=== PATIENT | male | born 1970 | race Hispanic/Latino ===

== ENCOUNTER 2018-06-22 11:39 | Emergency (ER) | payer SELFPAY ==
--- NOTE | 2018-06-22 12:45 | RAD REPORT ---
EXAM DESCRIPTION: CT - Head Brain Wo Cont - 06/22/2018 12:39 pm CLINICAL HISTORY: VISUAL DISTURBANCES Headache COMPARISON: No comparisons TECHNIQUE: All CT scans are performed using dose optimization technique as appropriate and may inclu de automated exposure control or mA/KV adjustment according to patient size. FINDINGS: No intracranial hemorrhage, hydrocephalus or extra-axial fluid collection.No areas of brai n edema or evidence of midline shift. The paranasal sinuses and mastoids are clear. The calvarium is intact. IMPRESSION: No acute intracranial abnormality.
[2018-06-22] MEDS ORDERED: NA CHLORIDE 0.9% 1,000 ML ONE (14:48)
[2018-06-22 14:52] LABS: Absolute Lymphocytes (CBC) 2.6 K/uL (0.7-4.9); Absolute Monocytes 0.5 K/uL (0.1-1.3); Absolute Neutrophil 4.1 K/uL (1.8-8.0); Basophils % 0.4 % (0-1.3); Hematocrit 42.9 % (39.6-49.0); Lymphocytes % 35.7 % (15.3-44.8); MCH 28.4 pg (27.0-35.0); MCV 83.2 fL (80-100); Monocytes % 6.8 % (3.3-12.3); RBC Red Blood Cell Count 5.16 M/uL (4.33-5.43)
[2018-06-22 15:01] LABS: Protime INR 1.03
[2018-06-22 15:18] LABS: ALT/SGPT 39 U/L (12-78); AST/SGOT 14 U/L (15-37); Albumin 3.8 g/dL (3.4-5.0); Alkaline Phosphatase 128 U/L (45-117); BUN Blood Urea Nitrogen 16 mg/dL (7-18); Bicarbonate 26 mmol/L (21-32); Bilirubin Direct 0.1 mg/dL (0-0.2); Bilirubin Total 0.5 mg/dL (0.2-1.0); CKMB Creatine Kinase MB < 1.0 ng/mL (0.3-3.6); Creatine Phosphokinase 69 U/L (39-308); Glucose Level 110 mg/dL (74-106); NT PRO-BNP 17 pg/mL (<125); Protein, Total 7.1 g/dL (6.4-8.2); Sodium Level 139 mmol/L (136-145)
--- NOTE | 2018-06-22 15:28 | ER ---
Nurse's Notes [facility] Name: Shin Mcnamara Age: 48 yrs Sex: Male : 1970 Arrival Date: 06/22/2018 Time: 11:40 Bed 24 Private MD: None, None Diagnosis: Vision sensitivity deficiencies;Type 2 diabetes mellitus Presentation: 06/22 11:48 Presenting complaint: Patient states: Blurry vision for 6 months, worse over last 5 hb days. Transition of care: patient was not received from another setting of care. Onset of symptoms is unknown. Risk Assessment: Do you want to hurt yourself or someone else? Patient reports no desire to harm self or others. Initial Sepsis Screen: Does the patient meet any 2 criteria? No. Patient's initial sepsis screen is negative. Does the patient have a suspected source of infection? No. Patient's initial sepsis screen is negative. Care prior to arrival: None. 11:48 Method Of Arrival: Wheelchair hb 11:48 Acuity: HILDA 3 hb Historical: - Allergies: 11:51 No Known Allergies; hb - Home Meds: 11:51 None [Active]; hb - PMHx: 11:51 None; hb - PSHx: 11:51 Cholecystectomy; hb - Immunization history:: Adult Immunizations up to date. - Social history:: Smoking status: Patient/guardian denies using tobacco. - Ebola Screening: : No symptoms or risks identified at this time. - Family history:: not pertinent. Screenin:14 Abuse screen: Denies threats or abuse. Denies injuries from another. Nutritional ss screening: No deficits noted. Tuberculosis screening: No symptoms or risk factors identified. Fall Risk None identified. Assessment: 13:09 General: Appears in no apparent distress. comfortable, obese, well groomed, Behavior is ss calm, cooperative, appropriate for age. Pain: Denies pain. 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 Gait is steady, Speech is normal, Facial symmetry appears normal, Pupils are PERRLA, Intact Reports blurred vision since 6 months ago, worse recently, dizziness. Cardiovascular: Reports lightheadedness, Capillary refill < 3 seconds in bilateral fingers Patient's skin is warm and dry. Respiratory: Airway is patent Respiratory effort is even, unlabored, Respiratory pattern is regular, symmetrical. GI: Abdomen is flat, non-distended, Patient currently denies nausea, vomiting. : Denies burning with urination. EENT: Oral mucosa is dry. Derm: Skin is intact, is healthy with good turgor, Skin is pink, warm \\T\\ dry. Musculoskeletal: Circulation, motion, and sensation intact. 13:10 Reassessment: Patient reports he takes a medication from [place] that is for his blood ss sugar but does not know what it is called. He does not check his glucose on a regular basis because he does not have a glucometer. 14:00 Reassessment: Patient appears in no apparent distress at this time. Patient and/or kr2 family updated on plan of care and expected duration. Pain level reassessed. Patient is alert, oriented x 3, equal unlabored respirations, skin warm/dry/pink. Patient denies pain at this time. 14:50 Reassessment: Patient appears in no apparent distress at this time. Patient and/or kr2 family updated on plan of care and expected duration. Pain level reassessed. Patient is alert, oriented x 3, equal unlabored respirations, skin warm/dry/pink. Patient denies pain at this time. Patient states feeling better. 16:19 Reassessment: Patient appears in no apparent distress at this time. Patient and/or kr2 family updated on plan of care and expected duration. Pain level reassessed. Patient is alert, oriented x 3, equal unlabored respirations, skin warm/dry/pink. Patient denies pain at this time. Vital Signs: 11:50 BP 118 / 73; Pulse 94; Resp 18; Temp 97.4; Pulse Ox 97% on R/A; Weight 117.93 kg; hb Height 5 ft. 5 in. (165.10 cm); Pain 0/10; 13:00 BP 121 / 84 LA Supine (auto/lg); Pulse 89; Resp 20 S; Temp 99(O); Pulse Ox 99% on R/A; jp3 14:49 BP 120 / 83; Pulse 89; Resp 24; Pulse Ox 97% on R/A; kr2 16:18 BP 118 / 78; Pulse 90; Resp 17; Pulse Ox 99% on R/A; kr2 11:50 Body Mass Index 43.27 (117.93 kg, 165.10 cm) hb ED Course: 11:40 Patient arrived in ED. hj 11:43 None, None is Private Physician. sb2 11:49 Triage completed. hb 11:51 Arm band placed on left wrist. hb 12:38 CT completed. Patient tolerated procedure well. Patient moved to CT via wheelchair. vr transported back to waiting room. 12:39 CT Head Brain wo Cont In Process Unspecified. EDMS 12:56 Curly Tejeda MD is Attending Physician. nelly 12:59 Aisha Bonilla, ARAMIS is Primary Nurse. ss 13:00 Placed in gown. jp3 14:40 Inserted saline lock: 20 gauge in right antecubital area, using aseptic technique. kr2 Blood collected. 15:14 X-ray completed. Portable x-ray completed in exam room. Patient tolerated procedure ml well. 15:15 XRAY Chest (1 view) In Process Unspecified. EDMS 15:26 Kyle Foster MD is Referral Physician. nelly 16:19 No provider procedures requiring assistance completed. IV discontinued, intact, kr2 bleeding controlled, No redness/swelling at site. Pressure dressing applied. 17:19 Primary Nurse role handed off by Aisha Bonilla, ARAMIS em1 Administered Medications: 14:49 Drug: NS 0.9% 1000 ml Route: IV; Rate: 1 bolus; Site: right antecubital; kr2 16:05 Follow up: Response: No adverse reaction; IV Status: Completed infusion kr2 16:18 Follow up: Response: No adverse reaction; IV Status: Completed infusion kr2 Outcome: 15:27 Discharge ordered by . [facility] 16:20 Discharged to home ambulatory. kr2 16:20 Condition: good 16:20 Discharge instructions given to patient, Instructed on discharge instructions, follow up and referral plans. Demonstrated understanding of instructions, follow-up care. 16:21 Patient left the ED. kr2 17:20 Patient left the ED. em1 Signatures: Dispatcher [employer] EDNY Curly Tejeda MD MD cha Lopez, Melissa ml Martinez, Eric em1 Aisha Bonilla, ARAMIS SELF ss Nenita Kelly vr Marek Ley RN RN hj Baxter, Heather, RN RN Alejandra Hinton RN RN kr2 Adelaida Matson sb2 Jeremy Luke jp3 Corrections: (The following items were deleted from the chart) 11:50 11:48 Presenting complaint: Patient states: "My vision has been blurry for 4 or 5 days, hb and my left hand is itchy." hb 11:50 11:50 BP 118 / 73; Pulse 94bpm; Resp 18bpm; Pulse Ox 97% RA; Temp 97.4F; 72.57 kg; hb Height 5 ft. 5 in.; BMI: 26.6; Pain 0/10; hb 13:14 13:00 BP 121 / 84 Supine Auto L Arm Large; Pulse 89bpm; Pulse Ox 99% RA; Temp 99F Oral; jp3 jp3
--- NOTE | 2018-06-22 15:28 | EDPHYS ---
Physician Documentation [facility] Name: Shin Mcnamara Age: 48 yrs Sex: Male : 1970 Arrival Date: 06/22/2018 Time: 11:40 Bed 24 Private MD: None, None ED Physician Curly Tejeda HPI: 06/22 14:32 This 48 yrs old Male presents to ER via Wheelchair with complaints of Blurred nelly Vision. 14:32 The patient is experiencing blurred vision. Onset: The symptoms/episode began/occurred nelly 3 day(s) ago. Duration: the symptoms are continuous. Aggravated by nothing. Alleviated by nothing. Associated signs and symptoms: Pertinent positives: dizziness, headache. Patient does not utilize any form of vision correction. Severity of symptoms: At their worst the symptoms were mild. Historical: - Allergies: 11:51 No Known Allergies; hb - Home Meds: 11:51 None [Active]; hb - PMHx: :51 None; hb - PSHx: 11:51 Cholecystectomy; hb - Immunization history:: Adult Immunizations up to date. - Social history:: Smoking status: Patient/guardian denies using tobacco. - Ebola Screening: : No symptoms or risks identified at this time. - Family history:: not pertinent. ROS: 14:32 Constitutional: Negative for fever, chills, and weight loss, ENT: Negative for injury, nelly pain, and discharge, Neck: Negative for injury, pain, and swelling, Cardiovascular: Negative for chest pain, palpitations, and edema, Respiratory: Negative for shortness of breath, cough, wheezing, and pleuritic chest pain, Abdomen/GI: Negative for abdominal pain, nausea, vomiting, diarrhea, and constipation, Back: Negative for injury and pain, : Negative for injury, bleeding, discharge, and swelling, MS/Extremity: Negative for injury and deformity, Skin: Negative for injury, rash, and discoloration, Neuro: Negative for headache, weakness, numbness, tingling, and seizure, Psych: Negative for depression, anxiety, suicide ideation, homicidal ideation, and hallucinations, Allergy/Immunology: Negative for hives, rash, and allergies, Endocrine: Negative for neck swelling, polydipsia, polyuria, polyphagia, and marked weight changes, Hematologic/Lymphatic: Negative for swollen nodes, abnormal bleeding, and unusual bruising. 14:32 Eyes: Positive for blurry vision. Exam: 14:32 Constitutional: This is a well developed, well nourished patient who is awake, alert, nelly and in no acute distress. Head/Face: Normocephalic, atraumatic. Eyes: Pupils equal round and reactive to light, extra-ocular motions intact. Lids and lashes normal. Conjunctiva and sclera are non-icteric and not injected. Cornea within normal limits. Periorbital areas with no swelling, redness, or edema. ENT: Nares patent. No nasal discharge, no septal abnormalities noted. Tympanic membranes are normal and external auditory canals are clear. Oropharynx with no redness, swelling, or masses, exudates, or evidence of obstruction, uvula midline. Mucous membranes moist. Neck: Trachea midline, no thyromegaly or masses palpated, and no cervical lymphadenopathy. Supple, full range of motion without nuchal rigidity, or vertebral point tenderness. No Meningismus. Chest/axilla: Normal chest wall appearance and motion. Nontender with no deformity. No lesions are appreciated. Cardiovascular: Regular rate and rhythm with a normal S1 and S2. No gallops, murmurs, or rubs. Normal PMI, no JVD. No pulse deficits. Respiratory: Lungs have equal breath sounds bilaterally, clear to auscultation and percussion. No rales, rhonchi or wheezes noted. No increased work of breathing, no retractions or nasal flaring. Abdomen/GI: Soft, non-tender, with normal bowel sounds. No distension or tympany. No guarding or rebound. No evidence of tenderness throughout. Back: No spinal tenderness. No costovertebral tenderness. Full range of motion. Male : Normal genitalia with no discharge or lesions. Skin: Warm, dry with normal turgor. Normal color with no rashes, no lesions, and no evidence of cellulitis. MS/ Extremity: Pulses equal, no cyanosis. Neurovascular intact. Full, normal range of motion. Neuro: Awake and alert, GCS 15, oriented to person, place, time, and situation. Cranial nerves II-XII grossly intact. Motor strength 5/5 in all extremities. Sensory grossly intact. Cerebellar exam normal. Normal gait. Psych: Awake, alert, with orientation to person, place and time. Behavior, mood, and affect are within normal limits. Vital Signs: 11:50 BP 118 / 73; Pulse 94; Resp 18; Temp 97.4; Pulse Ox 97% on R/A; Weight 117.93 kg; hb Height 5 ft. 5 in. (165.10 cm); Pain 0/10; 13:00 BP 121 / 84 LA Supine (auto/lg); Pulse 89; Resp 20 S; Temp 99(O); Pulse Ox 99% on R/A; jp3 14:49 BP 120 / 83; Pulse 89; Resp 24; Pulse Ox 97% on R/A; kr2 16:18 BP 118 / 78; Pulse 90; Resp 17; Pulse Ox 99% on R/A; kr2 11:50 Body Mass Index 43.27 (117.93 kg, 165.10 cm) hb MDM: 12:38 ED course: pt in CT dept. snw 12:56 Patient medically screened. [facility] 14:34 Data reviewed: vital signs, nurses notes, lab test result(s), EKG, radiologic studies, [facility] CT scan, plain films. 06/22 14:32 Order name: Basic Metabolic Panel; Complete Time: 15:23 [facility] 06/22 14:32 Order name: CBC with Diff; Complete Time: 15:24 [facility] 06/22 14:32 Order name: Ckmb; Complete Time: 15:24 [facility] 06/22 14:32 Order name: CPK; Complete Time: 15:24 [facility] 06/22 14:32 Order name: LFT's; Complete Time: 15:23 [facility] 06/22 14:32 Order name: Magnesium; Complete Time: 15:24 [facility] 06/22 12:26 Order name: CT Head Brain wo Cont; Complete Time: 15:24 snw 06/22 14:32 Order name: NT PRO-BNP; Complete Time: 15:24 [facility] 06/22 14:32 Order name: PT-INR; Complete Time: 15:24 [facility] 06/22 14:32 Order name: Ptt, Activated; Complete Time: 15:23 [facility] 06/22 14:32 Order name: Troponin (emerg Dept Use Only); Complete Time: 15:24 [facility] 06/22 14:32 Order name: XRAY Chest (1 view) [facility] 06/22 14:32 Order name: Urine Culture [facility] 06/22 14:32 Order name: EKG; Complete Time: 14:32 [facility] 06/22 14:32 Order name: Cardiac monitoring; Complete Time: 14:47 [facility] 06/22 14:32 Order name: EKG - Nurse/Tech [facility] 06/22 14:32 Order name: IV Saline Lock; Complete Time: 14:47 [facility] 06/22 14:32 Order name: Labs collected and sent; Complete Time: 14:47 [facility] 06/22 14:32 Order name: O2 Per Protocol; Complete Time: 14:47 [facility] 06/22 14:32 Order name: O2 Sat Monitoring; Complete Time: 14:48 [facility] Administered Medications: 14:49 Drug: NS 0.9% 1000 ml Route: IV; Rate: 1 bolus; Site: right antecubital; kr2 16:05 Follow up: Response: No adverse reaction; IV Status: Completed infusion kr2 16:18 Follow up: Response: No adverse reaction; IV Status: Completed infusion kr2 Disposition: 06/22/18 15:27 Discharged to Home. Impression: Vision sensitivity deficiencies, Type 2 diabetes mellitus. - Condition is Stable. - Discharge Instructions: Blurred Vision, Adult, Type 2 Diabetes Mellitus, Diagnosis, Adult, Aspirin and Your Heart, Type 2 Diabetes Mellitus, Diagnosis, Adult, [id number]. - Medication Reconciliation Form, Thank You Letter, Antibiotic Education, Prescription Opioid Use form. - Follow up: Private Physician; When: 2 - 3 days; Reason: Recheck today's complaints, Continuance of care, Re-evaluation by your physician. Follow up: Kyle Foster MD; When: 2 - 3 days; Reason: Recheck today's complaints, Re-evaluation by your physician. - Problem is new. - Symptoms have improved. Signatures: Dispatcher [employer] EDCurly Brasher MD MD cha Therrien, Shelly, CERTIFIER-C CERTIFIER-[place] em1 Lupe Noriega, RN RN Alejandra Zelaya, ARAMIS RN kr2 Corrections: (The following items were deleted from the chart) 16:21 15:27 06/22/2018 15:27 Discharged to Home. Impression: Vision sensitivity deficiencies; kr2 Type 2 diabetes mellitus. Condition is Stable. Forms are Medication Reconciliation Form, Thank You Letter, Antibiotic Education, Prescription Opioid Use. Follow up: Private Physician; When: 2 - 3 days; Reason: Recheck today's complaints, Continuance of care, Re-evaluation by your physician. Follow up: Kyle Foster; When: 2 - 3 days; Reason: Recheck today's complaints, Re-evaluation by your physician. Problem is new. Symptoms have improved. nelly 17:20 16:21 06/22/2018 15:27 Discharged to Home. Impression: Vision sensitivity deficiencies; em1 Type 2 diabetes mellitus. Condition is Stable. Discharge Instructions: Blurred Vision, Adult, Type 2 Diabetes Mellitus, Diagnosis, Adult, Aspirin and Your Heart, Type 2 Diabetes Mellitus, Diagnosis, Adult, [id number]. Forms are Medication Reconciliation Form, Thank You Letter, Antibiotic Education, Prescription Opioid Use. Follow up: Private Physician; When: 2 - 3 days; Reason: Recheck today's complaints, Continuance of care, Re-evaluation by your physician. Follow up: Kyle Foster; When: 2 - 3 days; Reason: Recheck today's complaints, Re-evaluation by your physician. Problem is new. Symptoms have improved. kr2
--- NOTE | 2018-06-22 15:53 | RAD REPORT ---
EXAM DESCRIPTION: [place] Single View06/22/2018 3:15 pm CLINICAL HISTORY: Cough COMPARISON: none FINDINGS: The lungs appear clear of acute infiltrate. The heart is normal size IMPRESSION: No acute abnormalities displayed
[2018-06-22 17:31] LABS: Urine Blood NEGATIVE (NEG); Urine Glucose NEGATIVE (NEG); Urine Protein NEGATIVE (NEG); Urine Specific Gravity >1.030 (1.005-1.030); Urine pH 5.5 (5.0-7.0)
--- NOTE | 2018-06-22 20:36 | EKG ---
Test Date: 2018-06-22 Test Time: 14:36:53 Home Health Care Worker: TRACY MEASUREMENT RESULTS: Intervals: Rate: 51 NH: 146 QRSD: 98 QT: 426 QTc: 392 [place]: P: 10 NH: 146 QRS: 86 T: 53 INTERPRETIVE STATEMENTS: Sinus bradycardia Otherwise normal ECG Compared to ECG 04/21/2005 15:52:00 Sinus tachycardia no longer present Electronically Signed On 06-22-18 20:35:54 CDT by Merlin Hurtado
== END 2018-06-22 17:20 | disposition home or self-care (01) ==
LOC: ER 11:39
DX: H53.72 Impaired contrast sensitivity (principal); E11.9 Type 2 diabetes mellitus without complications
CPT/HCPCS: 36415; 70450; 71045; 80048; 80076; 81003; 82550; 82553; 83735; 83880; 84484; 85025; 85610; 85730; 87086; 87088; 93005; 96360; 99284; J7030

== ENCOUNTER 2019-05-19 09:25 | Emergency (ER) | payer SELFPAY ==
--- OUTSIDE RECORDS SUMMARY | 2019-05-19 09:27 | XMS REPORT ---
:1970 [facility] [address] [place] [address] Care Team Providers Name Role Phone Unavailable Unavailable Unavailable Problems This patient has no known problems. Allergies, Adverse Reactions, Alerts This patient has no known allergies or adverse reactions. Medications This patient has no known medications.
--- NOTE | 2019-05-19 09:48 | ER ---
Nurse's Notes [facility] Name: Shin Mcnamara Age: 48 yrs Sex: Male : 1970 Arrival Date: 05/19/2019 Time: 09:27 Bed 11 Private MD: Diagnosis: Zoster [herpes zoster] Presentation: 05/19 09:28 Presenting complaint: Patient states: Pt believes that he may have been bitten by a ss spider two days ago to L side of neck. Vesicular rash noted to L side of neck. Denies fever. Transition of care: patient was not received from another setting of care. Onset of symptoms was May 17, 2019. Risk Assessment: Do you want to hurt yourself or someone else? Patient reports no desire to harm self or others. Initial Sepsis Screen: Does the patient have a suspected source of infection? No. Patient's initial sepsis screen is negative. Initial Sepsis Screen: Does the patient meet any 2 criteria? No. Patient's initial sepsis screen is negative. Care prior to arrival: None. 09:28 Method Of Arrival: Ambulatory ss 09:28 Acuity: HILDA 5 ss Historical: - Allergies: 09:31 No Known Allergies; ss - Home Meds: 09:31 unknown diabetic medication [Active]; ss - PMHx: 09:31 Diabetes - NIDDM; ss - PSHx: 09:31 Cholecystectomy; ss - Immunization history:: Adult Immunizations unknown. - Social history:: Smoking status: Patient/guardian denies using tobacco. - Ebola Screening: : Patient denies exposure to infectious person Patient denies travel to an Ebola-affected area in the 21 days before illness onset. Screenin:34 Abuse screen: Denies threats or abuse. Denies injuries from another. Nutritional ss screening: No deficits noted. Tuberculosis screening: Never had TB. Fall Risk None identified. Assessment: 09:34 General: Appears in no apparent distress. comfortable, Behavior is calm, cooperative, ss Denies fever, feeling ill, fatigue, chills. Pain: Complains of pain in L side of neck Pain currently is 5 out of 10 on a pain scale. Quality of pain is described as tender, Pain began 2 days ago, is getting worse Is continuous. Neuro: Level of Consciousness is awake, alert, obeys commands, Oriented to person, place, time, situation. Cardiovascular: Capillary refill < 3 seconds is brisk in bilateral fingers. Respiratory: Airway is patent Respiratory effort is even, unlabored, Respiratory pattern is regular, symmetrical. GI: Patient currently denies diarrhea, nausea, vomiting. EENT: Nares are clear Oral mucosa is moist. Throat is clear. Derm: Skin is intact, is healthy with good turgor, Skin is normal, pink, Rash noted that is patchy, vesicular noted to L side of neck. Musculoskeletal: Circulation, motion, and sensation intact. Range of motion: intact in all extremities, Swelling absent. 10:02 Reassessment: upon discharging patient, patient states, "I want to believe you, but I ss don't." Pt believes that he in fact got bitten by a spider even though he does not recall the exact moment or seeing an insect. Pt stats, "why is it only in that one spot? After assessing patient I verbalized with him that he has more spots on the back of his neck and two on the L side of his face. Pt shakes his head up and down and again I discussed with him that if he would like another opinion he is more than welcome to follow up with his doctor sooner than the next 2-3 days. Pt verbalized understanding. Vital Signs: 09:31 BP 143 / 88; Pulse 99; Resp 17; Temp 98.1(TE); Pulse Ox 97% on R/A; Weight 117.93 kg; ss Height 5 ft. 5 in. (165.10 cm); Pain 5/10; 09:31 Body Mass Index 43.27 (117.93 kg, 165.10 cm) ED Course: 09:27 Patient arrived in ED. as 09:30 Triage completed. ss 09:31 Arm band placed on right wrist. ss 09:34 Aisha Bonilla, RN is Primary Nurse. ss 09:34 Patient has correct armband on for positive identification. Bed in low position. Call ss light in reach. 09:38 Alec Daniels NP is PHCP. pm1 09:38 Clemente Dale MD is Attending Physician. pm1 10:02 No provider procedures requiring assistance completed. Patient did not have IV access ss during this emergency room visit. Administered Medications: No medications were administered Outcome: 09:45 Discharge ordered by . pm1 10:08 Discharged to home ambulatory. ss 10:08 Condition: good 10:08 Discharge instructions given to patient, Instructed on discharge instructions, follow up and referral plans. medication usage, Demonstrated understanding of instructions, follow-up care, medications, Prescriptions given X 2. 10:09 Patient left the ED. Signatures: Rachel Angulo Shelby, ARAMIS RN Alec Daniels, MS SQL DEVELOPER MS SQL DEVELOPER pm1
--- NOTE | 2019-05-19 09:49 | EDPHYS ---
Physician Documentation [facility] Name: Shin Mcnamara Age: 48 yrs Sex: Male : 1970 Arrival Date: 05/19/2019 Time: 09:27 Bed 11 Private MD: ED Physician Clemente Dale HPI: 05/19 09:44 This 48 yrs old Male presents to ER via Ambulatory with complaints of Rash. pm1 09:44 The rash is located on the left lateral aspect of neck. The rash can be described as pm1 vesicular. Onset: The symptoms/episode began/occurred 2 day(s) ago. Associated signs and symptoms: Pertinent positives: Pain Pertinent negatives: fever, itching. Severity of symptoms: in the emergency department the symptoms are worse. Treatment given at home: none. The patient has not experienced similar symptoms in the past. The patient has not recently seen a physician. Historical: - Allergies: 09:31 No Known Allergies; ss - Home Meds: 09:31 unknown diabetic medication [Active]; ss - PMHx: 09:31 Diabetes - NIDDM; ss - PSHx: 09:31 Cholecystectomy; ss - Immunization history:: Adult Immunizations unknown. - Social history:: Smoking status: Patient/guardian denies using tobacco. - Ebola Screening: : Patient denies exposure to infectious person Patient denies travel to an Ebola-affected area in the 21 days before illness onset. ROS: 09:44 Constitutional: Negative for fever, chills, and weight loss, Eyes: Negative for injury, pm1 pain, redness, and discharge, ENT: Negative for injury, pain, and discharge, Neck: Negative for injury, pain, and swelling, Cardiovascular: Negative for chest pain, palpitations, and edema, Respiratory: Negative for shortness of breath, cough, wheezing, and pleuritic chest pain, Abdomen/GI: Negative for abdominal pain, nausea, vomiting, diarrhea, and constipation, Back: Negative for injury and pain, MS/Extremity: Negative for injury and deformity. 09:44 Neuro: Negative for headache, weakness, numbness, tingling, and seizure. 09:44 Skin: Positive for rash, of the left lateral aspect of neck, Negative for abscesses, cellulitis. Exam: 09:44 Constitutional: This is a well developed, well nourished patient who is awake, alert, pm1 and in no acute distress. Head/Face: Normocephalic, atraumatic. Eyes: Pupils equal round and reactive to light, extra-ocular motions intact. Lids and lashes normal. Conjunctiva and sclera are non-icteric and not injected. Cornea within normal limits. Periorbital areas with no swelling, redness, or edema. ENT: Nares patent. No nasal discharge, no septal abnormalities noted. Tympanic membranes are normal and external auditory canals are clear. Oropharynx with no redness, swelling, or masses, exudates, or evidence of obstruction, uvula midline. Mucous membranes moist. Neck: Trachea midline, no thyromegaly or masses palpated, and no cervical lymphadenopathy. Supple, full range of motion without nuchal rigidity, or vertebral point tenderness. No Meningismus. Chest/axilla: Normal chest wall appearance and motion. Nontender with no deformity. No lesions are appreciated. Cardiovascular: Regular rate and rhythm with a normal S1 and S2. No gallops, murmurs, or rubs. Normal PMI, no JVD. No pulse deficits. Respiratory: Lungs have equal breath sounds bilaterally, clear to auscultation and percussion. No rales, rhonchi or wheezes noted. No increased work of breathing, no retractions or nasal flaring. Abdomen/GI: Soft, non-tender, with normal bowel sounds. No distension or tympany. No guarding or rebound. No evidence of tenderness throughout. Back: No spinal tenderness. No costovertebral tenderness. Full range of motion. 09:44 Skin: Appearance: normal except for affected area, consistent with zoster. 09:44 Neuro: Orientation: is normal, Motor: is normal, moves all fours. Vital Signs: 09:31 BP 143 / 88; Pulse 99; Resp 17; Temp 98.1(TE); Pulse Ox 97% on R/A; Weight 117.93 kg; ss Height 5 ft. 5 in. (165.10 cm); Pain 5/10; 09:31 Body Mass Index 43.27 (117.93 kg, 165.10 cm) ss MDM: 09:38 Patient medically screened. pm1 09:44 Data reviewed: vital signs. Data interpreted: Pulse oximetry: on room air is 97 %. pm1 Interpretation: normal. Counseling: I had a detailed discussion with the patient and/or guardian regarding: the historical points, exam findings, and any diagnostic results supporting the discharge/admit diagnosis, the need for outpatient follow up, to return to the emergency department if symptoms worsen or persist or if there are any questions or concerns that arise at home. Administered Medications: No medications were administered Disposition: 14:15 I agree with the assessment and plan of care. kdr Disposition: 05/19/19 09:45 Discharged to Home. Impression: Zoster [herpes zoster]. - Condition is Stable. - Discharge Instructions: Shingles. - Prescriptions for Tylenol- Codeine #3 300-30 mg Oral Tablet - take 2 tablets by ORAL route every 6 hours As needed; 20 tablet. Valtrex 1 g Oral Tablet - take 1 tablet by ORAL route every 8 hours for 7 days; 21 tablet. - Medication Reconciliation Form, Thank You Letter, Antibiotic Education, Prescription Opioid Use form. - Follow up: Emergency Department; When: As needed; Reason: Worsening of condition. Follow up: Private Physician; When: 2 - 3 days; Reason: Recheck today's complaints, Continuance of care, Re-evaluation by your physician. - Problem is new. - Symptoms have improved. Signatures: Clemente Dale MD MD kdr Aisha Bonilla RN RN ss Alec Daniels NP [employer] pm1 Corrections: (The following items were deleted from the chart) 10:09 09:45 05/19/2019 09:45 Discharged to Home. Impression: Zoster [herpes zoster]. ss Condition is Stable. Forms are Medication Reconciliation Form, Thank You Letter, Antibiotic Education, Prescription Opioid Use. Follow up: Emergency Department; When: As needed; Reason: Worsening of condition. Follow up: Private Physician; When: 2 - 3 days; Reason: Recheck today's complaints, Continuance of care, Re-evaluation by your physician. Problem is new. Symptoms have improved. pm1
== END 2019-05-19 10:09 | disposition home or self-care (01) ==
LOC: ER 09:25
DX: B02.9 Zoster without complications (principal); E11.9 Type 2 diabetes mellitus without complications
CPT/HCPCS: 99282

== ENCOUNTER 2022-11-05 10:42 | Emergency (ER) | payer OTHER, SELFPAY ==
--- OUTSIDE RECORDS SUMMARY | 2022-11-05 11:00 | XMS REPORT | Continuity of Care Document ---
:1970 Author Organization [facility] t Address [address] [place] [address] Care Team Providers Name Role Phone Amari Bear Primary Care Physician [phone] Problems This patient has no known problems. Allergies, Adverse Reactions, Alerts This patient has no known allergies or adverse reactions. Medications Ordered Filled Start Stop Current Ordering Indication Dosage Frequency Signature Comments Components Source Medication Medication Date Date Medication? Clinician (SIG) Name Name TAKE 2021-12 No TABLET BY 0-12 MOUTH TWICE 00:00: A DAY 00 TAKE 2021-12 No TABLET BY 0-12 MOUTH TWICE 00:00: A DAY 00 TAKE 2021-12 No TABLET BY 0-12 MOUTH TWICE 00:00: A DAY 00 Dose 2021-0 No Unknown 8-09 00:00: 00 Dose 2021-0 No Unknown 8-09 00:00: 00 Dose 2021-0 No Unknown 8-09 00:00: 00 TAKE 2021-0 No 1000 TABLET 8-04 TWICE 00:00: DAILY. 00 TAKE 1 2021-0 No 1000 TABLET 8-04 TWICE 00:00: DAILY. 00 TAKE 1 2021-0 No 1000 TABLET 8-04 TWICE 00:00: DAILY. 00 TAKE 1 2021-0 No 1000 TABLET 8-04 TWICE 00:00: DAILY. 00 cyclobenzap 2021-0 No 1mg rine 10 mg 8-03 tablet 00:00: 00 TAKE 2021-0 No 1000 TABLET 8-03 TWICE 00:00: DAILY. 00 TAKE 1 2021-0 No 40 CAPSULE 8-03 EVERY 00:00: MORNING 00 DAILY. cyclobenzap 2021-0 No 1mg rine 10 mg 8-03 tablet 00:00: 00 TAKE 1 2022-0 No 1000 TABLET 8-03 TWICE 00:00: DAILY. 00 TAKE 1 2022-0 No 40 CAPSULE 8-03 EVERY 00:00: MORNING 00 DAILY. cyclobenzap 2022-0 No 1mg rine 10 mg 8-03 tablet 00:00: 00 TAKE 1 2022-0 No 1000 TABLET 8-03 TWICE 00:00: DAILY. 00 TAKE 1 2022-0 No 40 CAPSULE 8-03 EVERY 00:00: MORNING 00 DAILY. cyclobenzap 2022-0 No 1mg rine 10 mg 8-03 tablet 00:00: 00 TAKE 1 2022-0 No 1000 TABLET 8-03 TWICE 00:00: DAILY. 00 TAKE 1 2022-0 No 40 CAPSULE 8-03 EVERY 00:00: MORNING 00 DAILY. clomiphene 2022-0 No 5mg citrate 50 7-29 mg tablet 00:00: 00 clomiphene 2022-0 No 5mg citrate 50 7-29 mg tablet 00:00: 00 clomiphene 2022-0 No 5mg citrate 50 7-29 mg tablet 00:00: 00 clomiphene 2022-0 No 5mg citrate 50 7-29 mg tablet 00:00: 00 Levemir 2022-0 No 20(3 FlexTouch 7-27 mL) U-100 00:00: Insulin 100 00 unit/mL (3 mL) subcutaneou s pen Dose 2-0 No Unknown 06-26 00:00: 00 metformin 2022-0 No 1mg 1,000 mg 7-27 tablet 00:00: 00 TAKE 1 2-0 No TABLET BY 7-27 MOUTH TWICE 00:00: A DAY 00 atorvastati 2-0 No 1mg n 80 mg 7-27 tablet 00:00: 00 omeprazole 2022-0 No 1mg 40 mg 7-27 capsule,del 00:00: ayed 00 release TAKE 1 2-0 No 40 CAPSULE 7-27 EVERY 00:00: MORNING 00 DAILY. Levemir 2022-0 No 20(3 FlexTouch 7-27 mL) U-100 00:00: Insulin 100 00 unit/mL (3 mL) subcutaneou s pen Dose 2-0 No Unknown 7-27 00:00: 00 metformin 2022-0 No 1mg 1,000 mg 7-27 tablet 00:00: 00 TAKE 1 2022-0 No TABLET BY 7-27 MOUTH TWICE 00:00: A DAY 00 atorvastati 2022-0 No 1mg n 80 mg 7-27 tablet 00:00: 00 omeprazole 2022-0 No 1mg 40 mg 7-27 capsule,del 00:00: ayed 00 release TAKE 1 2022-0 No 40 CAPSULE 7-27 EVERY 00:00: MORNING 00 DAILY. Levemir 2022-0 No 20(3 FlexTouch 7-27 mL) U-100 00:00: Insulin 100 00 unit/mL (3 mL) subcutaneou s pen Dose 2-0 No Unknown - 00:00: 00 metformin 2022-0 No 1mg 1,000 mg 7-27 tablet 00:00: 00 TAKE 1 2-0 No TABLET BY 7-27 MOUTH TWICE 00:00: A DAY 00 atorvastati 2022-0 No 1mg n 80 mg 7-27 tablet 00:00: 00 omeprazole 2022-0 No 1mg 40 mg 7-27 capsule,del 00:00: ayed 00 release TAKE 1 2-0 No 40 CAPSULE 7-27 EVERY 00:00: MORNING 00 DAILY. Levemir 2022-0 No 20(3 FlexTouch 7-27 mL) U-100 00:00: Insulin 100 00 unit/mL (3 mL) subcutaneou s pen lisinopril 2-0 No 1mg 2.5 mg 7-27 tablet 00:00: 00 metformin 2022-0 No 1mg 1,000 mg 7-27 tablet 00:00: 00 glimepiride 2-0 No 1mg 2 mg tablet 06-26 00:00: 00 atorvastati 2022-0 No 1mg n 80 mg 7-27 tablet 00:00: 00 omeprazole 2022-0 No 1mg 40 mg 7-27 capsule,del 00:00: ayed 00 release TAKE 1 2-0 No 40 CAPSULE 7-27 EVERY 00:00: MORNING 00 DAILY. Levemir 2022-0 No 20(3 FlexTouch 7-27 mL) U-100 00:00: Insulin 100 00 unit/mL (3 mL) subcutaneou s pen lisinopril 2022-0 No 1mg 2.5 mg 7-27 tablet 00:00: 00 metformin 2022-0 No 1mg 1,000 mg 7-27 tablet 00:00: 00 glimepiride 2-0 No 1mg 2 mg tablet 7- 00:00: 00 atorvastati 2-0 No 1mg n 80 mg 7-27 tablet 00:00: 00 omeprazole 2-0 No 1mg 40 mg 7-27 capsule,del 00:00: ayed 00 release TAKE 1 2021-0 No 40 CAPSULE 7-27 EVERY 00:00: MORNING 00 DAILY. Dose 2-0 No Unknown 7-11 00:00: 00 Dose 2022-0 No Unknown 7-11 00:00: 00 Dose 2-0 No Unknown 7-11 00:00: 00 Dose 2-0 No Unknown 7-11 00:00: 00 Dose 2-0 No Unknown 7-11 00:00: 00 Dose 2022-0 No Unknown 7-05 00:00: 00 Dose 2022-0 No Unknown 7-05 00:00: 00 Dose 2022-0 No Unknown 7-05 00:00: 00 Dose 2022-0 No Unknown 7-05 00:00: 00 Dose 2022-0 No Unknown 7-05 00:00: 00 Dose 2022-0 No Unknown 7-05 00:00: 00 Dose 2022-0 No Unknown 7-05 00:00: 00 Dose 2-0 No Unknown 7-05 00:00: 00 Dose 2022-0 No Unknown 7-05 00:00: 00 Dose 2022-0 No Unknown 7-05 00:00: 00 Dose 2022-0 No Unknown 7-05 00:00: 00 Dose 2022-0 No Unknown 7-05 00:00: 00 Dose 2022-0 No Unknown 7-05 00:00: 00 Dose 2022-0 No Unknown 7-05 00:00: 00 Dose 2022-0 No Unknown 7-05 00:00: 00 sildenafil 2-0 No 1mg 100 mg 6-14 tablet 00:00: 00 testosteron 2-0 No mg/mL e cypionate 6-14 200 mg/mL 00:00: intramuscul 00 ar oil sildenafil 2-0 No 1mg 100 mg 6-14 tablet 00:00: 00 testosteron 2-0 No mg/mL e cypionate 6-14 200 mg/mL 00:00: intramuscul 00 ar oil sildenafil 2022-0 No 1mg 100 mg 6-14 tablet 00:00: 00 testosteron 2022-0 No mg/mL e cypionate 6-14 200 mg/mL 00:00: intramuscul 00 ar oil sildenafil 2022-0 No 1mg 100 mg 6-14 tablet 00:00: 00 testosteron 2022-0 No mg/mL e cypionate 6-14 200 mg/mL 00:00: intramuscul 00 ar oil sildenafil 2022-0 No 1mg 100 mg 6-14 tablet 00:00: 00 testosteron 2022-0 No mg/mL e cypionate 6-14 200 mg/mL 00:00: intramuscul 00 ar oil sildenafil 2-0 No 1mg 100 mg 3-18 tablet 00:00: 00 sildenafil 2022-0 No 1mg 100 mg 3-18 tablet 00:00: 00 sildenafil 2022-0 No 1mg 100 mg 3-18 tablet 00:00: 00 sildenafil 2022-0 No 1mg 100 mg 3-18 tablet 00:00: 00 sildenafil 2022-0 No 1mg 100 mg 3-18 tablet 00:00: 00 Dose 2022-0 No Unknown 3-15 00:00: 00 Dose 2022-0 No Unknown 3-15 00:00: 00 Dose 2022-0 No Unknown 3-15 00:00: 00 Dose 2022-0 No Unknown 3-15 00:00: 00 Dose 2022-0 No Unknown 3-15 00:00: 00 Dose 2022-0 No Unknown 3-15 00:00: 00 Dose 2022-0 No Unknown 3-15 00:00: 00 Dose 2022-0 No Unknown 3-15 00:00: 00 Dose 2022-0 No Unknown 3-15 00:00: 00 Dose 2022-0 No Unknown 3-15 00:00: 00 Dose 2022-0 No Unknown 3-15 00:00: 00 Dose 2022-0 No Unknown 3-15 00:00: 00 Dose 2022-0 No Unknown 3-15 00:00: 00 Dose 2022-0 No Unknown 3-15 00:00: 00 Dose 2022-0 No Unknown 3-15 00:00: 00 Dose 2022-0 No Unknown 3-15 00:00: 00 Dose 2022-0 No Unknown 3-15 00:00: 00 Dose 2022-0 No Unknown 3-15 00:00: 00 Dose 2022-0 No Unknown 3-15 00:00: 00 Dose 2022-0 No Unknown 3-15 00:00: 00 Dose 2022-0 No Unknown 3-15 00:00: 00 Dose 2022-0 No Unknown 3-15 00:00: 00 Dose 2022-0 No Unknown 3-15 00:00: 00 Dose 2022-0 No Unknown 3-15 00:00: 00 Dose 2022-0 No Unknown 3-15 00:00: 00 Dose 2022-0 No Unknown 3-15 00:00: 00 Dose 2022-0 No Unknown 3-15 00:00: 00 Dose 2022-0 No Unknown 3-15 00:00: 00 Dose 2022-0 No Unknown 3-15 00:00: 00 Dose 2022-0 No Unknown 3-15 00:00: 00 Dose 2022-0 No Unknown 3-15 00:00: 00 Dose 2022-0 No Unknown 3-15 00:00: 00 Dose 2022-0 No Unknown 3-15 00:00: 00 Dose 2022-0 No Unknown 3-15 00:00: 00 Dose 2022-0 No Unknown 3-15 00:00: 00 Dose 2022-0 No Unknown 3-15 00:00: 00 Dose 2022-0 No Unknown 3-15 00:00: 00 Dose 2022-0 No Unknown 3-15 00:00: 00 Dose 2022-0 No Unknown 3-15 00:00: 00 Dose 2022-0 No Unknown 3-15 00:00: 00 Dose 2022-0 No Unknown 3-15 00:00: 00 Dose 2022-0 No Unknown 3-15 00:00: 00 Dose 2022-0 No Unknown 3-15 00:00: 00 Dose 2022-0 No Unknown 3-15 00:00: 00 Dose 2022-0 No Unknown 3-15 00:00: 00 Dose 2022-0 No Unknown 3-15 00:00: 00 Dose 2022-0 No Unknown 3-15 00:00: 00 Dose 2022-0 No Unknown 3-15 00:00: 00 Dose 2022-0 No Unknown 3-15 00:00: 00 Dose 2022-0 No Unknown 3-15 00:00: 00 Dose 2022-0 No Unknown 3-15 00:00: 00 Dose 2022-0 No Unknown 3-15 00:00: 00 Dose 2022-0 No Unknown 3-15 00:00: 00 Dose 2022-0 No Unknown 3-15 00:00: 00 Dose 2022-0 No Unknown 3-15 00:00: 00 Dose 2022-0 No Unknown 3-15 00:00: 00 Dose 2022-0 No Unknown 3-15 00:00: 00 Dose 2022-0 No Unknown 3-15 00:00: 00 Dose 2022-0 No Unknown 3-15 00:00: 00 Dose 2022-0 No Unknown 3-15 00:00: 00 Dose 2022-0 No Unknown 3-15 00:00: 00 Dose 2-0 No Unknown 3-15 00:00: 00 Dose 2022-0 No Unknown 3-15 00:00: 00 Dose 2-0 No Unknown 3-15 00:00: 00 Dose 2022-0 No Unknown 3-15 00:00: 00 Dose 2-0 No Unknown 3-15 00:00: 00 hydrochloro 2-0 No 1mg thiazide 50 3-15 mg tablet 00:00: 00 lisinopril 2-0 No 1mg 2.5 mg 3-15 tablet 00:00: 00 metformin 2-0 No 1mg 1,000 mg 3-15 tablet 00:00: 00 glimepiride 2-0 No 1mg 2 mg tablet 3-15 00:00: 00 atorvastati 2-0 No 1mg n 80 mg 3-15 tablet 00:00: 00 omeprazole 2-0 No 1mg 40 mg 3-15 capsule,del 00:00: ayed 00 release Dose 2022-0 No Unknown 3-15 00:00: 00 Dose 2022-0 No Unknown 3-15 00:00: 00 Dose 2022-0 No Unknown 3-15 00:00: 00 Dose 2022-0 No Unknown 3-15 00:00: 00 Dose 2022-0 No Unknown 3-15 00:00: 00 Dose 2022-0 No Unknown 3-15 00:00: 00 Dose 2022-0 No Unknown 3-15 00:00: 00 Dose 2022-0 No Unknown 3-15 00:00: 00 Dose 2022-0 No Unknown 3-15 00:00: 00 Dose 2022-0 No Unknown 3-15 00:00: 00 Dose 2022-0 No Unknown 3-15 00:00: 00 Dose 2022-0 No Unknown 3-15 00:00: 00 Dose 2022-0 No Unknown 3-15 00:00: 00 Dose 2022-0 No Unknown 3-15 00:00: 00 Dose 2022-0 No Unknown 3-15 00:00: 00 Dose 2022-0 No Unknown 3-15 00:00: 00 Dose 2022-0 No Unknown 3-15 00:00: 00 Dose 2022-0 No Unknown 3-15 00:00: 00 Dose 2022-0 No Unknown 3-15 00:00: 00 Dose 2022-0 No Unknown 3-15 00:00: 00 Dose 2022-0 No Unknown 3-15 00:00: 00 Dose 2022-0 No Unknown 3-15 00:00: 00 Dose 2022-0 No Unknown 3-15 00:00: 00 Dose 2022-0 No Unknown 3-15 00:00: 00 Dose 2022-0 No Unknown 3-15 00:00: 00 Dose 2022-0 No Unknown 3-15 00:00: 00 Dose 2022-0 No Unknown 3-15 00:00: 00 Dose 2022-0 No Unknown 3-15 00:00: 00 Dose 2022-0 No Unknown 3-15 00:00: 00 Dose 2022-0 No Unknown 3-15 00:00: 00 Dose 2022-0 No Unknown 3-15 00:00: 00 Dose 2022-0 No Unknown 3-15 00:00: 00 Dose 2022-0 No Unknown 3-15 00:00: 00 Dose 2022-0 No Unknown 3-15 00:00: 00 Dose 2022-0 No Unknown 3-15 00:00: 00 Dose 2022-0 No Unknown 3-15 00:00: 00 Dose 2022-0 No Unknown 3-15 00:00: 00 Dose 2022-0 No Unknown 3-15 00:00: 00 Dose 2022-0 No Unknown 3-15 00:00: 00 Dose 2022-0 No Unknown 3-15 00:00: 00 Dose 2022-0 No Unknown 3-15 00:00: 00 Dose 2022-0 No Unknown 3-15 00:00: 00 Dose 2022-0 No Unknown 3-15 00:00: 00 Dose 2022-0 No Unknown 3-15 00:00: 00 Dose 2022-0 No Unknown 3-15 00:00: 00 Dose 2022-0 No Unknown 3-15 00:00: 00 Dose 2022-0 No Unknown 3-15 00:00: 00 Dose 2022-0 No Unknown 3-15 00:00: 00 Dose 2022-0 No Unknown 3-15 00:00: 00 Dose 2022-0 No Unknown 3-15 00:00: 00 Dose 2022-0 No Unknown 3-15 00:00: 00 Dose 2022-0 No Unknown 3-15 00:00: 00 Dose 2022-0 No Unknown 3-15 00:00: 00 Dose 2022-0 No Unknown 3-15 00:00: 00 Dose 2022-0 No Unknown 3-15 00:00: 00 Dose 2022-0 No Unknown 3-15 00:00: 00 Dose 2022-0 No Unknown 3-15 00:00: 00 Dose 2022-0 No Unknown 3-15 00:00: 00 Dose 2022-0 No Unknown 3-15 00:00: 00 Dose 2022-0 No Unknown 3-15 00:00: 00 Dose 2022-0 No Unknown 3-15 00:00: 00 Dose 2022-0 No Unknown 3-15 00:00: 00 Dose 2022-0 No Unknown 3-15 00:00: 00 Dose 2022-0 No Unknown 3-15 00:00: 00 Dose 2022-0 No Unknown 3-15 00:00: 00 Dose 2022-0 No Unknown 3-15 00:00: 00 Dose 2022-0 No Unknown 3-15 00:00: 00 Dose 2022-0 No Unknown 3-15 00:00: 00 Dose 2022-0 No Unknown 3-15 00:00: 00 Dose 2022-0 No Unknown 3-15 00:00: 00 Dose 2022-0 No Unknown 3-15 00:00: 00 Dose 2022-0 No Unknown 3-15 00:00: 00 Dose 2022-0 No Unknown 3-15 00:00: 00 Dose 2022-0 No Unknown 3-15 00:00: 00 Dose 2022-0 No Unknown 3-15 00:00: 00 Dose 2022-0 No Unknown 3-15 00:00: 00 Dose 2022-0 No Unknown 3-15 00:00: 00 Dose 2022-0 No Unknown 3-15 00:00: 00 Dose 2022-0 No Unknown 3-15 00:00: 00 Dose 2022-0 No Unknown 3-15 00:00: 00 hydrochloro 2022-0 No 1mg thiazide 50 3-15 mg tablet 00:00: 00 lisinopril 2022-0 No 1mg 2.5 mg 3-15 tablet 00:00: 00 metformin 2022-0 No 1mg 1,000 mg 3-15 tablet 00:00: 00 glimepiride 2022-0 No 1mg 2 mg tablet 3-15 00:00: 00 atorvastati 2022-0 No 1mg n 80 mg 3-15 tablet 00:00: 00 omeprazole 2022-0 No 1mg 40 mg 3-15 capsule,del 00:00: ayed 00 release Dose 2022-0 No Unknown 3-15 00:00: 00 Dose 2022-0 No Unknown 3-15 00:00: 00 Dose 2022-0 No Unknown 3-15 00:00: 00 Dose 2022-0 No Unknown 3-15 00:00: 00 Dose 2022-0 No Unknown 3-15 00:00: 00 Dose 2022-0 No Unknown 3-15 00:00: 00 Dose 2022-0 No Unknown 3-15 00:00: 00 Dose 2022-0 No Unknown 3-15 00:00: 00 Dose 2022-0 No Unknown 3-15 00:00: 00 Dose 2022-0 No Unknown 3-15 00:00: 00 Dose 2022-0 No Unknown 3-15 00:00: 00 Dose 2022-0 No Unknown 3-15 00:00: 00 Dose 2022-0 No Unknown 3-15 00:00: 00 Dose 2022-0 No Unknown 3-15 00:00: 00 Dose 2022-0 No Unknown 3-15 00:00: 00 Dose 2022-0 No Unknown 3-15 00:00: 00 Dose 2022-0 No Unknown 3-15 00:00: 00 Dose 2022-0 No Unknown 3-15 00:00: 00 Dose 2022-0 No Unknown 3-15 00:00: 00 Dose 2022-0 No Unknown 3-15 00:00: 00 Dose 2022-0 No Unknown 3-15 00:00: 00 Dose 2022-0 No Unknown 3-15 00:00: 00 Dose 2022-0 No Unknown 3-15 00:00: 00 Dose 2022-0 No Unknown 3-15 00:00: 00 Dose 2022-0 No Unknown 3-15 00:00: 00 Dose 2022-0 No Unknown 3-15 00:00: 00 Dose 2022-0 No Unknown 3-15 00:00: 00 Dose 2022-0 No Unknown 3-15 00:00: 00 Dose 2022-0 No Unknown 3-15 00:00: 00 Dose 2022-0 No Unknown 3-15 00:00: 00 Dose 2022-0 No Unknown 3-15 00:00: 00 Dose 2022-0 No Unknown 3-15 00:00: 00 Dose 2022-0 No Unknown 3-15 00:00: 00 Dose 2022-0 No Unknown 3-15 00:00: 00 Dose 2022-0 No Unknown 3-15 00:00: 00 Dose 2022-0 No Unknown 3-15 00:00: 00 Dose 2022-0 No Unknown 3-15 00:00: 00 Dose 2022-0 No Unknown 3-15 00:00: 00 Dose 2022-0 No Unknown 3-15 00:00: 00 Dose 2022-0 No Unknown 3-15 00:00: 00 Dose 2022-0 No Unknown 3-15 00:00: 00 Dose 2022-0 No Unknown 3-15 00:00: 00 Dose 2022-0 No Unknown 3-15 00:00: 00 Dose 2022-0 No Unknown 3-15 00:00: 00 Dose 2022-0 No Unknown 3-15 00:00: 00 Dose 2022-0 No Unknown 3-15 00:00: 00 Dose 2022-0 No Unknown 3-15 00:00: 00 Dose 2022-0 No Unknown 3-15 00:00: 00 Dose 2022-0 No Unknown 3-15 00:00: 00 Dose 2022-0 No Unknown 3-15 00:00: 00 Dose 2022-0 No Unknown 3-15 00:00: 00 Dose 2022-0 No Unknown 3-15 00:00: 00 Dose 2022-0 No Unknown 3-15 00:00: 00 Dose 2022-0 No Unknown 3-15 00:00: 00 Dose 2022-0 No Unknown 3-15 00:00: 00 Dose 2022-0 No Unknown 3-15 00:00: 00 Dose 2022-0 No Unknown 3-15 00:00: 00 Dose 2022-0 No Unknown 3-15 00:00: 00 Dose 2022-0 No Unknown 3-15 00:00: 00 Dose 2022-0 No Unknown 3-15 00:00: 00 Dose 2022-0 No Unknown 3-15 00:00: 00 Dose 2022-0 No Unknown 3-15 00:00: 00 Dose 2022-0 No Unknown 3-15 00:00: 00 Dose 2022-0 No Unknown 3-15 00:00: 00 Dose 2022-0 No Unknown 3-15 00:00: 00 Dose 2022-0 No Unknown 3-15 00:00: 00 Dose 2022-0 No Unknown 3-15 00:00: 00 Dose 2022-0 No Unknown 3-15 00:00: 00 Dose 2022-0 No Unknown 3-15 00:00: 00 Dose 2022-0 No Unknown 3-15 00:00: 00 Dose 2022-0 No Unknown 3-15 00:00: 00 Dose 2022-0 No Unknown 3-15 00:00: 00 Dose 2022-0 No Unknown 3-15 00:00: 00 Dose 2022-0 No Unknown 3-15 00:00: 00 Dose 2022-0 No Unknown 3-15 00:00: 00 Dose 2022-0 No Unknown 3-15 00:00: 00 Dose 2022-0 No Unknown 3-15 00:00: 00 Dose 2022-0 No Unknown 3-15 00:00: 00 Dose 2022-0 No Unknown 3-15 00:00: 00 Dose 2022-0 No Unknown 3-15 00:00: 00 hydrochloro 2022-0 No 1mg thiazide 50 3-15 mg tablet 00:00: 00 lisinopril 2022-0 No 1mg 2.5 mg 3-15 tablet 00:00: 00 metformin 2022-0 No 1mg 1,000 mg 3-15 tablet 00:00: 00 glimepiride 2022-0 No 1mg 2 mg tablet 3-15 00:00: 00 atorvastati 2-0 No 1mg n 80 mg 3-15 tablet 00:00: 00 omeprazole 2022-0 No 1mg 40 mg 3-15 capsule,del 00:00: ayed 00 release Dose 2022-0 No Unknown 3-15 00:00: 00 Dose 2022-0 No Unknown 3-15 00:00: 00 Dose 2022-0 No Unknown 3-15 00:00: 00 Dose 2022-0 No Unknown 3-15 00:00: 00 Dose 2022-0 No Unknown 3-15 00:00: 00 Dose 2022-0 No Unknown 3-15 00:00: 00 Dose 2022-0 No Unknown 3-15 00:00: 00 Dose 2022-0 No Unknown 3-15 00:00: 00 Dose 2022-0 No Unknown 3-15 00:00: 00 Dose 2022-0 No Unknown 3-15 00:00: 00 Dose 2022-0 No Unknown 3-15 00:00: 00 Dose 2022-0 No Unknown 3-15 00:00: 00 Dose 2022-0 No Unknown 3-15 00:00: 00 Dose 2022-0 No Unknown 3-15 00:00: 00 Dose 2022-0 No Unknown 3-15 00:00: 00 Dose 2022-0 No Unknown 3-15 00:00: 00 Dose 2022-0 No Unknown 3-15 00:00: 00 Dose 2022-0 No Unknown 3-15 00:00: 00 Dose 2022-0 No Unknown 3-15 00:00: 00 Dose 2022-0 No Unknown 3-15 00:00: 00 Dose 2022-0 No Unknown 3-15 00:00: 00 Dose 2022-0 No Unknown 3-15 00:00: 00 Dose 2022-0 No Unknown 3-15 00:00: 00 Dose 2022-0 No Unknown 3-15 00:00: 00 Dose 2022-0 No Unknown 3-15 00:00: 00 Dose 2022-0 No Unknown 3-15 00:00: 00 Dose 2022-0 No Unknown 3-15 00:00: 00 Dose 2022-0 No Unknown 3-15 00:00: 00 Dose 2022-0 No Unknown 3-15 00:00: 00 Dose 2022-0 No Unknown 3-15 00:00: 00 Dose 2022-0 No Unknown 3-15 00:00: 00 Dose 2022-0 No Unknown 3-15 00:00: 00 Dose 2022-0 No Unknown 3-15 00:00: 00 Dose 2022-0 No Unknown 3-15 00:00: 00 Dose 2022-0 No Unknown 3-15 00:00: 00 Dose 2022-0 No Unknown 3-15 00:00: 00 Dose 2022-0 No Unknown 3-15 00:00: 00 Dose 2022-0 No Unknown 3-15 00:00: 00 Dose 2022-0 No Unknown 3-15 00:00: 00 Dose 2022-0 No Unknown 3-15 00:00: 00 Dose 2022-0 No Unknown 3-15 00:00: 00 Dose 2022-0 No Unknown 3-15 00:00: 00 Dose 2022-0 No Unknown 3-15 00:00: 00 Dose 2022-0 No Unknown 3-15 00:00: 00 Dose 2022-0 No Unknown 3-15 00:00: 00 Dose 2022-0 No Unknown 3-15 00:00: 00 Dose 2022-0 No Unknown 3-15 00:00: 00 Dose 2022-0 No Unknown 3-15 00:00: 00 Dose 2022-0 No Unknown 3-15 00:00: 00 Dose 2022-0 No Unknown 3-15 00:00: 00 Dose 2022-0 No Unknown 3-15 00:00: 00 Dose 2022-0 No Unknown 3-15 00:00: 00 Dose 2022-0 No Unknown 3-15 00:00: 00 Dose 2022-0 No Unknown 3-15 00:00: 00 Dose 2022-0 No Unknown 3-15 00:00: 00 Dose 2022-0 No Unknown 3-15 00:00: 00 Dose 2022-0 No Unknown 3-15 00:00: 00 Dose 2022-0 No Unknown 3-15 00:00: 00 Dose 2022-0 No Unknown 3-15 00:00: 00 Dose 2022-0 No Unknown 3-15 00:00: 00 Dose 2022-0 No Unknown 3-15 00:00: 00 Dose 2022-0 No Unknown 3-15 00:00: 00 Dose 2022-0 No Unknown 3-15 00:00: 00 Dose 2022-0 No Unknown 3-15 00:00: 00 Dose 2022-0 No Unknown 3-15 00:00: 00 Dose 2022-0 No Unknown 3-15 00:00: 00 Dose 2022-0 No Unknown 3-15 00:00: 00 Dose 2022-0 No Unknown 3-15 00:00: 00 Dose 2022-0 No Unknown 3-15 00:00: 00 Dose 2022-0 No Unknown 3-15 00:00: 00 Dose 2022-0 No Unknown 3-15 00:00: 00 Dose 2022-0 No Unknown 3-15 00:00: 00 Dose 2022-0 No Unknown 3-15 00:00: 00 Dose 2022-0 No Unknown 3-15 00:00: 00 Dose 2022-0 No Unknown 3-15 00:00: 00 Dose 2022-0 No Unknown 3-15 00:00: 00 Dose 2022-0 No Unknown 3-15 00:00: 00 Dose 2022-0 No Unknown 3-15 00:00: 00 Dose 2022-0 No Unknown 3-15 00:00: 00 Dose 2022-0 No Unknown 3-15 00:00: 00 hydrochloro 2022-0 No 1mg thiazide 50 3-15 mg tablet 00:00: 00 lisinopril 2-0 No 1mg 2.5 mg 3-15 tablet 00:00: 00 metformin 2022-0 No 1mg 1,000 mg 3-15 tablet 00:00: 00 glimepiride 2022-0 No 1mg 2 mg tablet 3-15 00:00: 00 atorvastati 2022-0 No 1mg n 80 mg 3-15 tablet 00:00: 00 omeprazole 2022-0 No 1mg 40 mg 3-15 capsule,del 00:00: ayed 00 release Dose 2022-0 No Unknown 3-15 00:00: 00 Dose 2022-0 No Unknown 3-15 00:00: 00 Dose 2022-0 No Unknown 3-15 00:00: 00 Dose 2022-0 No Unknown 3-15 00:00: 00 Dose 2022-0 No Unknown 3-15 00:00: 00 Dose 2022-0 No Unknown 3-15 00:00: 00 Dose 2022-0 No Unknown 3-15 00:00: 00 Dose 2022-0 No Unknown 3-15 00:00: 00 Dose 2022-0 No Unknown 3-15 00:00: 00 Dose 2022-0 No Unknown 3-15 00:00: 00 Dose 2022-0 No Unknown 3-15 00:00: 00 Dose 2022-0 No Unknown 3-15 00:00: 00 Dose 2022-0 No Unknown 3-15 00:00: 00 Dose 2022-0 No Unknown 3-15 00:00: 00 Dose 2022-0 No Unknown 3-15 00:00: 00 Dose 2022-0 No Unknown 3-15 00:00: 00 Dose 2022-0 No Unknown 3-15 00:00: 00 Dose 2022-0 No Unknown 3-15 00:00: 00 Dose 2022-0 No Unknown 3-15 00:00: 00 Dose 2022-0 No Unknown 3-15 00:00: 00 Dose 2022-0 No Unknown 3-15 00:00: 00 Dose 2022-0 No Unknown 3-15 00:00: 00 Dose 2022-0 No Unknown 3-15 00:00: 00 Dose 2022-0 No Unknown 3-15 00:00: 00 Dose 2022-0 No Unknown 3-15 00:00: 00 Dose 2022-0 No Unknown 3-15 00:00: 00 Dose 2022-0 No Unknown 3-15 00:00: 00 Dose 2022-0 No Unknown 3-15 00:00: 00 Dose 2022-0 No Unknown 3-15 00:00: 00 Dose 2022-0 No Unknown 3-15 00:00: 00 Dose 2022-0 No Unknown 3-15 00:00: 00 Dose 2022-0 No Unknown 3-15 00:00: 00 Dose 2022-0 No Unknown 3-15 00:00: 00 Dose 2022-0 No Unknown 3-15 00:00: 00 Dose 2022-0 No Unknown 3-15 00:00: 00 Dose 2022-0 No Unknown 3-15 00:00: 00 Dose 2022-0 No Unknown 3-15 00:00: 00 Dose 2022-0 No Unknown 3-15 00:00: 00 Dose 2022-0 No Unknown 3-15 00:00: 00 Dose 2022-0 No Unknown 3-15 00:00: 00 Dose 2022-0 No Unknown 3-15 00:00: 00 Dose 2022-0 No Unknown 3-15 00:00: 00 Dose 2022-0 No Unknown 3-15 00:00: 00 Dose 2022-0 No Unknown 3-15 00:00: 00 Dose 2022-0 No Unknown 3-15 00:00: 00 Dose 2022-0 No Unknown 3-15 00:00: 00 Dose 2022-0 No Unknown 3-15 00:00: 00 Dose 2022-0 No Unknown 3-15 00:00: 00 Dose 2022-0 No Unknown 3-15 00:00: 00 Dose 2022-0 No Unknown 3-15 00:00: 00 Dose 2022-0 No Unknown 3-15 00:00: 00 Dose 2022-0 No Unknown 3-15 00:00: 00 Dose 2022-0 No Unknown 3-15 00:00: 00 Dose 2022-0 No Unknown 3-15 00:00: 00 Dose 2022-0 No Unknown 3-15 00:00: 00 Dose 2022-0 No Unknown 3-15 00:00: 00 Dose 2022-0 No Unknown 3-15 00:00: 00 Dose 2022-0 No Unknown 3-15 00:00: 00 Dose 2022-0 No Unknown 3-15 00:00: 00 Dose 2022-0 No Unknown 3-15 00:00: 00 Dose 2022-0 No Unknown 3-15 00:00: 00 Dose 2022-0 No Unknown 3-15 00:00: 00 Dose 2022-0 No Unknown 3-15 00:00: 00 Dose 2022-0 No Unknown 3-15 00:00: 00 Dose 2022-0 No Unknown 3-15 00:00: 00 Dose 2022-0 No Unknown 3-15 00:00: 00 Dose 2022-0 No Unknown 3-15 00:00: 00 Dose 2022-0 No Unknown 3-15 00:00: 00 Dose 2022-0 No Unknown 3-15 00:00: 00 Dose 2022-0 No Unknown 3-15 00:00: 00 Dose 2022-0 No Unknown 3-15 00:00: 00 Dose 2022-0 No Unknown 3-15 00:00: 00 Dose 2022-0 No Unknown 3-15 00:00: 00 Dose 2022-0 No Unknown 3-15 00:00: 00 Dose 2022-0 No Unknown 3-15 00:00: 00 Dose 2022-0 No Unknown 3-15 00:00: 00 Dose 2022-0 No Unknown 3-15 00:00: 00 Dose 2022-0 No Unknown 3-15 00:00: 00 Dose 2022-0 No Unknown 3-15 00:00: 00 Dose 2022-0 No Unknown 3-15 00:00: 00 hydrochloro 2022-0 No 1mg thiazide 50 3-15 mg tablet 00:00: 00 lisinopril 2022-0 No 1mg 2.5 mg 3-15 tablet 00:00: 00 metformin 2022-0 No 1mg 1,000 mg 3-15 tablet 00:00: 00 glimepiride 2022-0 No 1mg 2 mg tablet 3-15 00:00: 00 atorvastati 2022-0 No 1mg n 80 mg 3-15 tablet 00:00: 00 omeprazole 2022-0 No 1mg 40 mg 3-15 capsule,del 00:00: ayed 00 release Dose 2022-0 No Unknown 3-15 00:00: 00 Dose 2022-0 No Unknown 3-15 00:00: 00 Dose 2022-0 No Unknown 3-15 00:00: 00 Dose 2022-0 No Unknown 3-15 00:00: 00 Dose 2022-0 No Unknown 3-15 00:00: 00 Dose 2022-0 No Unknown 3-15 00:00: 00 Dose 2022-0 No Unknown 3-15 00:00: 00 Dose 2022-0 No Unknown 3-15 00:00: 00 Dose 2022-0 No Unknown 3-15 00:00: 00 Dose 2022-0 No Unknown 3-15 00:00: 00 Dose 2022-0 No Unknown 3-15 00:00: 00 Dose 2022-0 No Unknown 3-15 00:00: 00 Dose 2022-0 No Unknown 3-15 00:00: 00 Dose 2022-0 No Unknown 3-15 00:00: 00 Dose 2022-0 No Unknown 3-10 00:00: 00 Dose 2022-0 No Unknown 3-10 00:00: 00 Dose 2022-0 No Unknown 3-10 00:00: 00 Dose 2022-0 No Unknown 3-10 00:00: 00 Dose 2022-0 No Unknown 3-10 00:00: 00 Dose 2022-0 No Unknown 3-10 00:00: 00 Dose 2022-0 No Unknown 3-10 00:00: 00 Dose 2022-0 No Unknown 3-10 00:00: 00 Dose 2022-0 No Unknown 3-10 00:00: 00 Dose 2022-0 No Unknown 3-10 00:00: 00 Dose 2022-0 No Unknown 3-10 00:00: 00 Dose 2022-0 No Unknown 3-10 00:00: 00 Dose 2022-0 No Unknown 3-10 00:00: 00 Dose 2022-0 No Unknown 3-10 00:00: 00 Dose 2022-0 No Unknown 3-10 00:00: 00 Dose 2022-0 No Unknown 3-10 00:00: 00 Dose 2022-0 No Unknown 3-10 00:00: 00 Dose 2022-0 No Unknown 3-10 00:00: 00 Dose 2022-0 No Unknown 3-10 00:00: 00 Dose 2022-0 No Unknown 3-10 00:00: 00 Dose 2022-0 No Unknown 3-10 00:00: 00 Dose 2022-0 No Unknown 3-10 00:00: 00 Dose 2022-0 No Unknown 3-10 00:00: 00 Dose 2022-0 No Unknown 3-10 00:00: 00 Dose 2022-0 No Unknown 3-10 00:00: 00 Dose 2022-0 No Unknown 3-10 00:00: 00 Dose 2022-0 No Unknown 3-10 00:00: 00 Dose 2022-0 No Unknown 3-10 00:00: 00 Dose 2022-0 No Unknown 3-10 00:00: 00 Dose 2022-0 No Unknown 3-10 00:00: 00 Dose 2022-0 No Unknown 3-10 00:00: 00 Dose 2022-0 No Unknown 3-10 00:00: 00 Dose 2022-0 No Unknown 3-10 00:00: 00 Dose 2022-0 No Unknown 3-10 00:00: 00 Dose 2022-0 No Unknown 3-10 00:00: 00 Dose 2022-0 No Unknown 3-10 00:00: 00 Dose 2022-0 No Unknown 3-10 00:00: 00 Dose 2022-0 No Unknown 3-10 00:00: 00 Dose 2022-0 No Unknown 3-10 00:00: 00 Dose 2022-0 No Unknown 3-10 00:00: 00 Dose 2022-0 No Unknown 3-10 00:00: 00 Dose 2022-0 No Unknown 3-10 00:00: 00 Dose 2022-0 No Unknown 3-10 00:00: 00 Dose 2022-0 No Unknown 3-10 00:00: 00 Dose 2022-0 No Unknown 3-10 00:00: 00 Dose 2022-0 No Unknown 3-10 00:00: 00 Dose 2022-0 No Unknown 3-10 00:00: 00 Dose 2022-0 No Unknown 3-10 00:00: 00 Dose 2022-0 No Unknown 3-10 00:00: 00 Dose 2022-0 No Unknown 3-10 00:00: 00 Dose 2022-0 No Unknown 3-10 00:00: 00 Dose 2022-0 No Unknown 3-10 00:00: 00 Dose 2022-0 No Unknown 3-10 00:00: 00 Dose 2022-0 No Unknown 3-10 00:00: 00 Dose 2022-0 No Unknown 3-10 00:00: 00 Dose 2022-0 No Unknown 3-10 00:00: 00 Dose 2022-0 No Unknown 3-10 00:00: 00 Dose 2022-0 No Unknown 3-10 00:00: 00 Dose 2022-0 No Unknown 3-10 00:00: 00 Dose 2022-0 No Unknown 3-10 00:00: 00 Dose 2022-0 No Unknown 3-10 00:00: 00 Dose 2022-0 No Unknown 3-10 00:00: 00 Dose 2022-0 No Unknown 3-10 00:00: 00 Dose 2022-0 No Unknown 3-10 00:00: 00 Dose 2022-0 No Unknown 3-10 00:00: 00 Dose 2022-0 No Unknown 3-10 00:00: 00 Dose 2022-0 No Unknown 3-10 00:00: 00 Dose 2022-0 No Unknown 3-10 00:00: 00 Dose 2022-0 No Unknown 3-10 00:00: 00 Dose 2022-0 No Unknown 3-10 00:00: 00 Dose 2022-0 No Unknown 3-10 00:00: 00 Dose 2022-0 No Unknown 3-10 00:00: 00 Dose 2022-0 No Unknown 3-10 00:00: 00 Dose 2022-0 No Unknown 3-10 00:00: 00 Dose 2022-0 No Unknown 3-10 00:00: 00 Dose 2022-0 No Unknown 3-10 00:00: 00 Dose 2022-0 No Unknown 3-10 00:00: 00 Dose 2022-0 No Unknown 3-10 00:00: 00 Dose 2022-0 No Unknown 3-10 00:00: 00 Dose 2022-0 No Unknown 3-10 00:00: 00 Dose 2022-0 No Unknown 3-10 00:00: 00 Dose 2022-0 No Unknown 3-10 00:00: 00 Dose 2022-0 No Unknown 3-10 00:00: 00 Dose 2022-0 No Unknown 3-10 00:00: 00 Dose 2022-0 No Unknown 3-10 00:00: 00 Dose 2022-0 No Unknown 3-10 00:00: 00 Dose 2022-0 No Unknown 3-10 00:00: 00 Dose 2022-0 No Unknown 3-10 00:00: 00 Dose 2022-0 No Unknown 3-10 00:00: 00 Dose 2022-0 No Unknown 3-10 00:00: 00 Dose 2022-0 No Unknown 3-10 00:00: 00 Dose 2022-0 No Unknown 3-10 00:00: 00 Dose 2022-0 No Unknown 3-10 00:00: 00 Dose 2022-0 No Unknown 3-10 00:00: 00 Dose 2022-0 No Unknown 3-10 00:00: 00 Dose 2022-0 No Unknown 3-10 00:00: 00 Dose 2022-0 No Unknown 3-10 00:00: 00 Dose 2022-0 No Unknown 3-10 00:00: 00 Dose 2022-0 No Unknown 3-10 00:00: 00 Dose 2022-0 No Unknown 3-10 00:00: 00 Dose 2022-0 No Unknown 3-10 00:00: 00 Dose 2022-0 No Unknown 3-10 00:00: 00 Dose 2022-0 No Unknown 3-10 00:00: 00 Dose 2022-0 No Unknown 3-10 00:00: 00 Dose 2022-0 No Unknown 3-10 00:00: 00 Dose 2022-0 No Unknown 3-10 00:00: 00 Dose 2022-0 No Unknown 3-10 00:00: 00 Dose 2022-0 No Unknown 3-10 00:00: 00 Dose 2022-0 No Unknown 3-10 00:00: 00 Dose 2022-0 No Unknown 3-10 00:00: 00 Dose 2022-0 No Unknown 3-10 00:00: 00 Dose 2022-0 No Unknown 3-10 00:00: 00 Dose 2022-0 No Unknown 3-10 00:00: 00 Dose 2022-0 No Unknown 3-10 00:00: 00 Dose 2022-0 No Unknown 3-10 00:00: 00 Dose 2022-0 No Unknown 3-10 00:00: 00 Dose 2022-0 No Unknown 3-10 00:00: 00 Dose 2022-0 No Unknown 3-10 00:00: 00 Dose 2022-0 No Unknown 3-10 00:00: 00 Dose 2022-0 No Unknown 3-10 00:00: 00 Dose 2022-0 No Unknown 3-10 00:00: 00 Dose 2022-0 No Unknown 3-10 00:00: 00 Dose 2022-0 No Unknown 3-10 00:00: 00 Dose 2022-0 No Unknown 3-10 00:00: 00 Dose 2022-0 No Unknown 3-10 00:00: 00 Dose 2022-0 No Unknown 3-10 00:00: 00 Dose 2022-0 No Unknown 3-10 00:00: 00 Dose 2022-0 No Unknown 3-10 00:00: 00 Dose 2022-0 No Unknown 3-10 00:00: 00 Dose 2022-0 No Unknown 3-10 00:00: 00 Dose 2022-0 No Unknown 3-10 00:00: 00 Dose 2022-0 No Unknown 3-10 00:00: 00 Dose 2022-0 No Unknown 3-10 00:00: 00 Dose 2022-0 No Unknown 3-10 00:00: 00 Dose 2022-0 No Unknown 3-10 00:00: 00 Dose 2022-0 No Unknown 3-10 00:00: 00 Dose 2022-0 No Unknown 3-10 00:00: 00 Dose 2022-0 No Unknown 3-10 00:00: 00 Dose 2022-0 No Unknown 3-10 00:00: 00 Dose 2022-0 No Unknown 3-10 00:00: 00 Dose 2022-0 No Unknown 3-10 00:00: 00 Dose 2022-0 No Unknown 3-10 00:00: 00 Dose 2022-0 No Unknown 3-10 00:00: 00 Dose 2022-0 No Unknown 3-10 00:00: 00 Dose 2022-0 No Unknown 3-10 00:00: 00 Dose 2022-0 No Unknown 3-10 00:00: 00 Dose 2022-0 No Unknown 3-10 00:00: 00 Dose 2022-0 No Unknown 3-10 00:00: 00 Dose 2022-0 No Unknown 3-10 00:00: 00 Dose 2022-0 No Unknown 3-10 00:00: 00 Dose 2022-0 No Unknown 3-10 00:00: 00 Dose 2022-0 No Unknown 3-10 00:00: 00 Dose 2022-0 No Unknown 3-10 00:00: 00 Dose 2022-0 No Unknown 3-10 00:00: 00 Dose 2022-0 No Unknown 3-10 00:00: 00 Dose 2022-0 No Unknown 3-10 00:00: 00 Dose 2022-0 No Unknown 3-10 00:00: 00 Dose 2022-0 No Unknown 3-10 00:00: 00 Dose 2022-0 No Unknown 3-10 00:00: 00 Dose 2022-0 No Unknown 3-10 00:00: 00 Dose 2022-0 No Unknown 3-10 00:00: 00 Dose 2022-0 No Unknown 3-10 00:00: 00 Dose 2022-0 No Unknown 3-10 00:00: 00 Dose 2022-0 No Unknown 3-10 00:00: 00 Dose 2022-0 No Unknown 3-10 00:00: 00 Dose 2022-0 No Unknown 3-10 00:00: 00 Dose 2022-0 No Unknown 3-10 00:00: 00 Dose 2022-0 No Unknown 3-10 00:00: 00 Dose 2022-0 No Unknown 3-10 00:00: 00 Dose 2022-0 No Unknown 3-10 00:00: 00 Dose 2022-0 No Unknown 3-10 00:00: 00 Dose 2022-0 No Unknown 3-10 00:00: 00 Dose 2022-0 No Unknown 3-10 00:00: 00 Dose 2022-0 No Unknown 3-10 00:00: 00 Dose 2022-0 No Unknown 3-10 00:00: 00 Dose 2022-0 No Unknown 3-10 00:00: 00 Dose 2022-0 No Unknown 3-10 00:00: 00 Dose 2022-0 No Unknown 3-10 00:00: 00 Dose 2022-0 No Unknown 3-10 00:00: 00 Dose 2022-0 No Unknown 3-10 00:00: 00 Dose 2022-0 No Unknown 3-10 00:00: 00 Dose 2022-0 No Unknown 3-10 00:00: 00 Dose 2022-0 No Unknown 3-10 00:00: 00 Dose 2022-0 No Unknown 3-10 00:00: 00 Dose 2022-0 No Unknown 3-10 00:00: 00 Dose 2022-0 No Unknown 3-10 00:00: 00 Dose 2022-0 No Unknown 3-10 00:00: 00 Dose 2022-0 No Unknown 3-10 00:00: 00 Dose 2022-0 No Unknown 3-10 00:00: 00 Dose 2022-0 No Unknown 3-10 00:00: 00 Dose 2022-0 No Unknown 3-10 00:00: 00 Dose 2022-0 No Unknown 3-10 00:00: 00 Dose 2022-0 No Unknown 3-10 00:00: 00 Dose 2022-0 No Unknown 3-10 00:00: 00 Dose 2022-0 No Unknown 3-10 00:00: 00 Dose 2022-0 No Unknown 3-10 00:00: 00 Dose 2022-0 No Unknown 3-10 00:00: 00 Dose 2022-0 No Unknown 3-10 00:00: 00 Dose 2022-0 No Unknown 3-10 00:00: 00 Dose 2022-0 No Unknown 3-10 00:00: 00 Dose 2022-0 No Unknown 3-10 00:00: 00 Dose 2022-0 No Unknown 3-10 00:00: 00 Dose 2022-0 No Unknown 3-10 00:00: 00 Dose 2022-0 No Unknown 3-10 00:00: 00 Dose 2022-0 No Unknown 3-10 00:00: 00 Dose 2022-0 No Unknown 3-10 00:00: 00 Dose 2022-0 No Unknown 3-10 00:00: 00 Dose 2022-0 No Unknown 3-10 00:00: 00 Dose 2022-0 No Unknown 3-10 00:00: 00 Dose 2022-0 No Unknown 3-10 00:00: 00 Dose 2022-0 No Unknown 3-10 00:00: 00 Dose 2022-0 No Unknown 3-10 00:00: 00 Dose 2022-0 No Unknown 3-10 00:00: 00 Dose 2022-0 No Unknown 3-10 00:00: 00 Dose 2022-0 No Unknown 3-10 00:00: 00 Dose 2022-0 No Unknown 3-10 00:00: 00 Dose 2022-0 No Unknown 3-10 00:00: 00 Dose 2022-0 No Unknown 3-10 00:00: 00 Dose 2022-0 No Unknown 3-10 00:00: 00 Dose 2022-0 No Unknown 3-10 00:00: 00 Dose 2022-0 No Unknown 3-10 00:00: 00 Dose 2022-0 No Unknown 3-10 00:00: 00 Dose 2022-0 No Unknown 3-10 00:00: 00 Dose 2022-0 No Unknown 3-10 00:00: 00 Dose 2022-0 No Unknown 3-10 00:00: 00 Dose 2022-0 No Unknown 3-10 00:00: 00 Dose 2022-0 No Unknown 3-10 00:00: 00 Dose 2022-0 No Unknown 3-10 00:00: 00 Dose 2022-0 No Unknown 3-10 00:00: 00 Dose 2022-0 No Unknown 3-10 00:00: 00 Dose 2022-0 No Unknown 3-10 00:00: 00 Dose 2022-0 No Unknown 3-10 00:00: 00 Dose 2022-0 No Unknown 3-10 00:00: 00 Dose 2022-0 No Unknown 3-10 00:00: 00 Dose 2022-0 No Unknown 3-10 00:00: 00 Dose 2022-0 No Unknown 3-10 00:00: 00 Dose 2022-0 No Unknown 3-10 00:00: 00 Dose 2022-0 No Unknown 3-10 00:00: 00 Dose 2022-0 No Unknown 3-10 00:00: 00 Dose 2022-0 No Unknown 3-10 00:00: 00 Dose 2022-0 No Unknown 3-10 00:00: 00 Dose 2022-0 No Unknown 3-10 00:00: 00 Dose 2022-0 No Unknown 3-10 00:00: 00 Dose 2022-0 No Unknown 3-10 00:00: 00 Dose 2022-0 No Unknown 3-10 00:00: 00 Dose 2022-0 No Unknown 3-10 00:00: 00 Dose 2022-0 No Unknown 3-10 00:00: 00 Dose 2022-0 No Unknown 3-10 00:00: 00 Dose 2022-0 No Unknown 3-10 00:00: 00 Dose 2022-0 No Unknown 3-10 00:00: 00 Dose 2022-0 No Unknown 3-10 00:00: 00 Dose 2022-0 No Unknown 3-10 00:00: 00 Dose 2022-0 No Unknown 3-10 00:00: 00 Dose 2022-0 No Unknown 3-10 00:00: 00 Dose 2022-0 No Unknown 3-10 00:00: 00 Dose 2022-0 No Unknown 3-10 00:00: 00 Dose 2022-0 No Unknown 3-10 00:00: 00 Dose 2022-0 No Unknown 3-10 00:00: 00 Dose 2022-0 No Unknown 3-10 00:00: 00 Dose 2022-0 No Unknown 3-10 00:00: 00 Dose 2022-0 No Unknown 3-10 00:00: 00 Dose 2022-0 No Unknown 3-10 00:00: 00 Dose 2022-0 No Unknown 3-10 00:00: 00 Dose 2022-0 No Unknown 3-10 00:00: 00 Dose 2022-0 No Unknown 3-10 00:00: 00 Dose 2022-0 No Unknown 3-10 00:00: 00 Dose 2022-0 No Unknown 3-10 00:00: 00 Dose 2022-0 No Unknown 3-10 00:00: 00 Dose 2022-0 No Unknown 3-10 00:00: 00 Dose 2022-0 No Unknown 3-10 00:00: 00 Dose 2022-0 No Unknown 3-10 00:00: 00 Dose 2022-0 No Unknown 3-10 00:00: 00 Dose 2022-0 No Unknown 3-10 00:00: 00 Dose 2022-0 No Unknown 3-10 00:00: 00 Dose 2022-0 No Unknown 3-10 00:00: 00 Dose 2022-0 No Unknown 3-10 00:00: 00 Dose 2022-0 No Unknown 3-10 00:00: 00 Dose 2022-0 No Unknown 3-10 00:00: 00 Dose 2022-0 No Unknown 3-10 00:00: 00 Dose 2022-0 No Unknown 3-10 00:00: 00 Dose 2022-0 No Unknown 3-10 00:00: 00 Dose 2022-0 No Unknown 3-10 00:00: 00 Dose 2022-0 No Unknown 3-10 00:00: 00 Dose 2022-0 No Unknown 3-10 00:00: 00 Dose 2022-0 No Unknown 3-10 00:00: 00 Dose 2022-0 No Unknown 3-10 00:00: 00 Dose 2022-0 No Unknown 3-10 00:00: 00 Dose 2022-0 No Unknown 3-10 00:00: 00 Dose 2022-0 No Unknown 3-10 00:00: 00 Dose 2022-0 No Unknown 3-10 00:00: 00 Dose 2022-0 No Unknown 3-10 00:00: 00 Dose 2022-0 No Unknown 3-10 00:00: 00 Dose 2022-0 No Unknown 3-10 00:00: 00 Dose 2022-0 No Unknown 3-10 00:00: 00 Dose 2022-0 No Unknown 3-10 00:00: 00 Dose 2022-0 No Unknown 3-10 00:00: 00 Dose 2022-0 No Unknown 3-10 00:00: 00 Dose 2022-0 No Unknown 3-10 00:00: 00 Dose 2022-0 No Unknown 3-10 00:00: 00 Dose 2022-0 No Unknown 3-10 00:00: 00 Dose 2022-0 No Unknown 3-10 00:00: 00 Dose 2022-0 No Unknown 3-10 00:00: 00 Dose 2022-0 No Unknown 3-10 00:00: 00 Dose 2022-0 No Unknown 3-10 00:00: 00 Dose 2022-0 No Unknown 3-10 00:00: 00 Dose 2022-0 No Unknown 3-10 00:00: 00 Dose 2022-0 No Unknown 3-10 00:00: 00 Dose 2022-0 No Unknown 3-10 00:00: 00 Dose 2022-0 No Unknown 3-10 00:00: 00 Dose 2022-0 No Unknown 3-10 00:00: 00 Dose 2022-0 No Unknown 3-10 00:00: 00 Dose 2022-0 No Unknown 3-10 00:00: 00 Dose 2022-0 No Unknown 3-10 00:00: 00 Dose 2022-0 No Unknown 3-10 00:00: 00 Dose 2022-0 No Unknown 3-10 00:00: 00 Dose 2022-0 No Unknown 3-10 00:00: 00 Dose 2022-0 No Unknown 3-10 00:00: 00 Dose 2022-0 No Unknown 3-10 00:00: 00 Dose 2022-0 No Unknown 3-10 00:00: 00 Dose 2022-0 No Unknown 3-10 00:00: 00 Dose 2022-0 No Unknown 3-10 00:00: 00 Dose 2022-0 No Unknown 3-10 00:00: 00 Dose 2022-0 No Unknown 3-10 00:00: 00 Dose 2022-0 No Unknown 3-10 00:00: 00 Dose 2022-0 No Unknown 3-10 00:00: 00 Dose 2022-0 No Unknown 3-10 00:00: 00 Dose 2022-0 No Unknown 3-10 00:00: 00 Dose 2022-0 No Unknown 3-10 00:00: 00 Dose 2022-0 No Unknown 3-10 00:00: 00 Dose 2022-0 No Unknown 3-10 00:00: 00 Dose 2022-0 No Unknown 3-10 00:00: 00 Dose 2022-0 No Unknown 3-10 00:00: 00 Dose 2022-0 No Unknown 3-10 00:00: 00 Dose 2022-0 No Unknown 3-10 00:00: 00 Dose 2022-0 No Unknown 3-10 00:00: 00 Dose 2022-0 No Unknown 3-10 00:00: 00 Dose 2022-0 No Unknown 3-10 00:00: 00 Dose 2022-0 No Unknown 3-10 00:00: 00 Dose 2022-0 No Unknown 3-10 00:00: 00 Dose 2022-0 No Unknown 3-10 00:00: 00 Dose 2022-0 No Unknown 3-10 00:00: 00 Dose 2022-0 No Unknown 3-10 00:00: 00 Dose 2022-0 No Unknown 3-10 00:00: 00 Dose 2022-0 No Unknown 3-10 00:00: 00 Dose 2022-0 No Unknown 3-10 00:00: 00 Dose 2022-0 No Unknown 3-10 00:00: 00 Dose 2022-0 No Unknown 3-10 00:00: 00 Dose 2022-0 No Unknown 3-10 00:00: 00 Dose 2022-0 No Unknown 3-10 00:00: 00 Dose 2022-0 No Unknown 3-10 00:00: 00 Dose 2022-0 No Unknown 3-10 00:00: 00 Dose 2022-0 No Unknown 3-10 00:00: 00 Dose 2022-0 No Unknown 3-10 00:00: 00 Dose 2022-0 No Unknown 3-10 00:00: 00 Dose 2022-0 No Unknown 3-10 00:00: 00 Dose 2022-0 No Unknown 3-10 00:00: 00 Dose 2022-0 No Unknown 3-10 00:00: 00 Dose 2022-0 No Unknown 3-10 00:00: 00 Dose 2022-0 No Unknown 3-10 00:00: 00 Dose 2022-0 No Unknown 3-10 00:00: 00 Dose 2022-0 No Unknown 3-10 00:00: 00 Dose 2022-0 No Unknown 3-10 00:00: 00 Dose 2022-0 No Unknown 3-10 00:00: 00 Dose 2022-0 No Unknown 3-10 00:00: 00 Dose 2022-0 No Unknown 3-10 00:00: 00 Dose 2022-0 No Unknown 3-10 00:00: 00 Dose 2022-0 No Unknown 3-10 00:00: 00 Dose 2022-0 No Unknown 3-10 00:00: 00 Dose 2022-0 No Unknown 3-10 00:00: 00 Dose 2022-0 No Unknown 3-10 00:00: 00 Dose 2022-0 No Unknown 3-10 00:00: 00 Dose 2022-0 No Unknown 3-10 00:00: 00 Dose 2022-0 No Unknown 3-10 00:00: 00 Dose 2022-0 No Unknown 3-10 00:00: 00 Dose 2022-0 No Unknown 3-10 00:00: 00 Dose 2022-0 No Unknown 3-10 00:00: 00 Dose 2022-0 No Unknown 3-10 00:00: 00 Dose 2022-0 No Unknown 3-10 00:00: 00 Dose 2022-0 No Unknown 3-10 00:00: 00 Dose 2022-0 No Unknown 3-10 00:00: 00 Dose 2022-0 No Unknown 3-10 00:00: 00 Dose 2022-0 No Unknown 3-10 00:00: 00 Dose 2022-0 No Unknown 3-10 00:00: 00 Dose 2022-0 No Unknown 3-10 00:00: 00 Dose 2022-0 No Unknown 3-10 00:00: 00 Dose 2022-0 No Unknown 3-10 00:00: 00 Dose 2022-0 No Unknown 3-10 00:00: 00 Dose 2022-0 No Unknown 3-10 00:00: 00 Dose 2022-0 No Unknown 3-10 00:00: 00 Dose 2022-0 No Unknown 3-10 00:00: 00 Dose 2022-0 No Unknown 3-10 00:00: 00 Dose 2022-0 No Unknown 3-10 00:00: 00 Dose 2022-0 No Unknown 3-10 00:00: 00 Dose 2022-0 No Unknown 3-10 00:00: 00 Dose 2022-0 No Unknown 3-10 00:00: 00 Dose 2022-0 No Unknown 3-10 00:00: 00 Dose 2022-0 No Unknown 3-10 00:00: 00 Dose 2022-0 No Unknown 3-10 00:00: 00 Dose 2022-0 No Unknown 3-10 00:00: 00 Dose 2022-0 No Unknown 3-10 00:00: 00 Dose 2022-0 No Unknown 3-10 00:00: 00 Dose 2022-0 No Unknown 3-10 00:00: 00 Dose 2022-0 No Unknown 3-10 00:00: 00 Dose 2022-0 No Unknown 3-10 00:00: 00 Dose 2022-0 No Unknown 3-10 00:00: 00 Dose 2022-0 No Unknown 3-10 00:00: 00 Dose 2022-0 No Unknown 3-10 00:00: 00 Dose 2022-0 No Unknown 3-10 00:00: 00 Dose 2022-0 No Unknown 3-10 00:00: 00 Dose 2022-0 No Unknown 3-10 00:00: 00 Dose 2022-0 No Unknown 3-10 00:00: 00 Dose 2022-0 No Unknown 3-10 00:00: 00 Dose 2022-0 No Unknown 3-10 00:00: 00 Dose 2022-0 No Unknown 3-10 00:00: 00 Dose 2022-0 No Unknown 3-10 00:00: 00 Dose 2022-0 No Unknown 3-10 00:00: 00 Dose 2022-0 No Unknown 3-10 00:00: 00 Dose 2022-0 No Unknown 3-10 00:00: 00 Dose 2022-0 No Unknown 3-10 00:00: 00 Dose 2022-0 No Unknown 3-10 00:00: 00 Dose 2022-0 No Unknown 3-10 00:00: 00 Dose 2022-0 No Unknown 3-10 00:00: 00 Dose 2022-0 No Unknown 3-10 00:00: 00 Dose 2022-0 No Unknown 3-10 00:00: 00 Dose 2022-0 No Unknown 3-10 00:00: 00 Dose 2022-0 No Unknown 3-10 00:00: 00 Dose 2022-0 No Unknown 3-10 00:00: 00 Dose 2022-0 No Unknown 3-10 00:00: 00 Dose 2022-0 No Unknown 3-10 00:00: 00 Dose 2022-0 No Unknown 3-10 00:00: 00 Dose 2022-0 No Unknown 3-10 00:00: 00 Dose 2022-0 No Unknown 3-10 00:00: 00 Dose 2022-0 No Unknown 3-10 00:00: 00 Dose 2022-0 No Unknown 3-10 00:00: 00 Dose 2022-0 No Unknown 3-10 00:00: 00 Dose 2022-0 No Unknown 3-10 00:00: 00 Dose 2022-0 No Unknown 3-10 00:00: 00 Dose 2022-0 No Unknown 3-10 00:00: 00 Dose 2022-0 No Unknown 3-10 00:00: 00 Dose 2022-0 No Unknown 3-10 00:00: 00 Dose 2022-0 No Unknown 3-10 00:00: 00 Dose 2022-0 No Unknown 3-10 00:00: 00 Dose 2022-0 No Unknown 3-10 00:00: 00 Dose 2022-0 No Unknown 3-10 00:00: 00 Dose 2022-0 No Unknown 3-10 00:00: 00 Dose 2022-0 No Unknown 3-10 00:00: 00 Dose 2022-0 No Unknown 3-10 00:00: 00 Dose 2022-0 No Unknown 3-10 00:00: 00 Dose 2022-0 No Unknown 3-10 00:00: 00 Dose 2022-0 No Unknown 3-10 00:00: 00 Dose 2022-0 No Unknown 3-10 00:00: 00 Dose 2022-0 No Unknown 3-10 00:00: 00 Dose 2022-0 No Unknown 3-10 00:00: 00 Dose 2022-0 No Unknown 3-10 00:00: 00 Dose 2022-0 No Unknown 3-10 00:00: 00 Dose 2022-0 No Unknown 3-10 00:00: 00 Dose 2022-0 No Unknown 3-10 00:00: 00 Dose 2022-0 No Unknown 3-10 00:00: 00 Dose 2022-0 No Unknown 3-10 00:00: 00 Dose 2022-0 No Unknown 3-10 00:00: 00 Dose 2022-0 No Unknown 3-10 00:00: 00 Dose 2022-0 No Unknown 3-10 00:00: 00 Dose 2022-0 No Unknown 3-10 00:00: 00 Dose 2022-0 No Unknown 3-10 00:00: 00 Dose 2022-0 No Unknown 3-10 00:00: 00 Dose 2022-0 No Unknown 3-10 00:00: 00 Dose 2022-0 No Unknown 3-10 00:00: 00 Dose 2022-0 No Unknown 3-10 00:00: 00 Dose 2022-0 No Unknown 3-10 00:00: 00 Dose 2022-0 No Unknown 3-10 00:00: 00 Dose 2022-0 No Unknown 3-10 00:00: 00 Dose 2022-0 No Unknown 3-10 00:00: 00 Dose 2022-0 No Unknown 3-10 00:00: 00 Dose 2022-0 No Unknown 3-10 00:00: 00 Dose 2022-0 No Unknown 3-10 00:00: 00 Dose 2022-0 No Unknown 3-10 00:00: 00 Dose 2022-0 No Unknown 3-10 00:00: 00 Dose 2022-0 No Unknown 3-10 00:00: 00 Dose 2022-0 No Unknown 3-10 00:00: 00 Dose 2022-0 No Unknown 3-10 00:00: 00 Dose 2022-0 No Unknown 3-10 00:00: 00 Dose 2022-0 No Unknown 3-10 00:00: 00 Dose 2022-0 No Unknown 3-10 00:00: 00 Dose 2022-0 No Unknown 3-10 00:00: 00 Dose 2022-0 No Unknown 3-10 00:00: 00 Dose 2022-0 No Unknown 3-10 00:00: 00 Dose 2022-0 No Unknown 3-10 00:00: 00 Dose 2022-0 No Unknown 3-10 00:00: 00 Dose 2022-0 No Unknown 3-10 00:00: 00 Dose 2022-0 No Unknown 3-10 00:00: 00 Dose 2022-0 No Unknown 3-10 00:00: 00 Dose 2022-0 No Unknown 3-10 00:00: 00 Dose 2022-0 No Unknown 3-10 00:00: 00 Dose 2022-0 No Unknown 3-10 00:00: 00 Dose 2022-0 No Unknown 3-10 00:00: 00 Dose 2022-0 No Unknown 3-10 00:00: 00 Dose 2022-0 No Unknown 3-10 00:00: 00 Dose 2022-0 No Unknown 3-10 00:00: 00 Dose 2022-0 No Unknown 3-10 00:00: 00 Dose 2022-0 No Unknown 3-10 00:00: 00 Dose 2022-0 No Unknown 3-10 00:00: 00 Dose 2022-0 No Unknown 3-10 00:00: 00 Dose 2022-0 No Unknown 3-10 00:00: 00 Dose 2022-0 No Unknown 3-10 00:00: 00 Dose 2022-0 No Unknown 3-10 00:00: 00 Dose 2022-0 No Unknown 3-10 00:00: 00 Dose 2022-0 No Unknown 3-10 00:00: 00 Dose 2022-0 No Unknown 3-10 00:00: 00 Dose 2022-0 No Unknown 3-10 00:00: 00 Dose 2022-0 No Unknown 3-10 00:00: 00 Dose 2022-0 No Unknown 3-10 00:00: 00 Dose 2022-0 No Unknown 3-10 00:00: 00 Dose 2022-0 No Unknown 3-10 00:00: 00 Dose 2022-0 No Unknown 3-10 00:00: 00 Dose 2022-0 No Unknown 3-10 00:00: 00 Dose 2022-0 No Unknown 3-10 00:00: 00 Dose 2022-0 No Unknown 3-10 00:00: 00 Dose 2022-0 No Unknown 3-10 00:00: 00 Dose 2022-0 No Unknown 3-10 00:00: 00 Dose 2022-0 No Unknown 3-10 00:00: 00 Dose 2022-0 No Unknown 3-10 00:00: 00 Dose 2022-0 No Unknown 3-10 00:00: 00 Dose 2022-0 No Unknown 3-10 00:00: 00 Dose 2022-0 No Unknown 3-10 00:00: 00 Dose 2022-0 No Unknown 3-10 00:00: 00 Dose 2022-0 No Unknown 3-10 00:00: 00 Dose 2022-0 No Unknown 3-10 00:00: 00 Dose 2022-0 No Unknown 3-10 00:00: 00 Dose 2022-0 No Unknown 3-10 00:00: 00 Dose 2022-0 No Unknown 3-10 00:00: 00 Dose 2022-0 No Unknown 3-10 00:00: 00 Dose 2022-0 No Unknown 3-10 00:00: 00 Dose 2022-0 No Unknown 3-10 00:00: 00 Dose 2022-0 No Unknown 3-10 00:00: 00 Dose 2022-0 No Unknown 3-10 00:00: 00 Dose 2022-0 No Unknown 3-10 00:00: 00 Dose 2022-0 No Unknown 3-10 00:00: 00 Dose 2022-0 No Unknown 3-10 00:00: 00 Dose 2022-0 No Unknown 3-10 00:00: 00 Dose 2022-0 No Unknown 3-10 00:00: 00 Dose 2022-0 No Unknown 3-10 00:00: 00 Dose 2022-0 No Unknown 3-10 00:00: 00 Dose 2022-0 No Unknown 3-10 00:00: 00 Dose 2022-0 No Unknown 3-10 00:00: 00 Dose 2022-0 No Unknown 3-10 00:00: 00 Dose 2022-0 No Unknown 3-10 00:00: 00 Dose 2022-0 No Unknown 3-10 00:00: 00 Dose 2022-0 No Unknown 3-10 00:00: 00 Dose 2022-0 No Unknown 3-10 00:00: 00 Dose 2022-0 No Unknown 3-10 00:00: 00 Dose 2022-0 No Unknown 3-10 00:00: 00 Dose 2022-0 No Unknown 3-10 00:00: 00 Dose 2022-0 No Unknown 3-10 00:00: 00 Dose 2022-0 No Unknown 3-10 00:00: 00 Dose 2022-0 No Unknown 3-10 00:00: 00 Dose 2022-0 No Unknown 3-10 00:00: 00 Dose 2022-0 No Unknown 3-10 00:00: 00 Dose 2022-0 No Unknown 3-10 00:00: 00 Dose 2022-0 No Unknown 3-10 00:00: 00 Dose 2022-0 No Unknown 3-10 00:00: 00 Dose 2022-0 No Unknown 3-10 00:00: 00 Dose 2022-0 No Unknown 3-10 00:00: 00 Dose 2022-0 No Unknown 3-10 00:00: 00 Dose 2022-0 No Unknown 3-10 00:00: 00 Dose 2022-0 No Unknown 3-10 00:00: 00 Dose 2022-0 No Unknown 3-10 00:00: 00 Dose 2022-0 No Unknown 3-10 00:00: 00 Dose 2022-0 No Unknown 3-10 00:00: 00 Dose 2022-0 No Unknown 3-10 00:00: 00 Dose 2022-0 No Unknown 3-10 00:00: 00 Dose 2022-0 No Unknown 3-10 00:00: 00 Dose 2022-0 No Unknown 3-10 00:00: 00 Dose 2022-0 No Unknown 3-10 00:00: 00 Dose 2022-0 No Unknown 3-10 00:00: 00 Dose 2022-0 No Unknown 3-10 00:00: 00 Dose 2022-0 No Unknown 3-10 00:00: 00 Dose 2022-0 No Unknown 3-10 00:00: 00 Dose 2022-0 No Unknown 3-10 00:00: 00 Dose 2022-0 No Unknown 3-10 00:00: 00 Dose 2022-0 No Unknown 3-10 00:00: 00 Dose 2022-0 No Unknown 3-10 00:00: 00 Dose 2022-0 No Unknown 3-10 00:00: 00 Dose 2022-0 No Unknown 3-10 00:00: 00 Dose 2022-0 No Unknown 3-10 00:00: 00 Dose 2022-0 No Unknown 3-10 00:00: 00 Dose 2022-0 No Unknown 3-10 00:00: 00 Dose 2022-0 No Unknown 3-10 00:00: 00 Dose 2022-0 No Unknown 3-10 00:00: 00 Dose 2022-0 No Unknown 3-10 00:00: 00 Dose 2022-0 No Unknown 3-10 00:00: 00 Dose 2022-0 No Unknown 3-10 00:00: 00 Dose 2022-0 No Unknown 3-10 00:00: 00 Dose 2022-0 No Unknown 3-10 00:00: 00 Dose 2022-0 No Unknown 3-10 00:00: 00 Dose 2022-0 No Unknown 3-10 00:00: 00 Dose 2022-0 No Unknown 3-10 00:00: 00 Dose 2022-0 No Unknown 3-10 00:00: 00 Dose 2022-0 No Unknown 3-10 00:00: 00 Dose 2022-0 No Unknown 3-10 00:00: 00 Dose 2022-0 No Unknown 3-10 00:00: 00 Dose 2022-0 No Unknown 3-10 00:00: 00 Dose 2022-0 No Unknown 3-10 00:00: 00 Dose 2022-0 No Unknown 3-10 00:00: 00 Dose 2022-0 No Unknown 3-10 00:00: 00 Dose 2022-0 No Unknown 3-10 00:00: 00 Dose 2022-0 No Unknown 3-10 00:00: 00 Dose 2022-0 No Unknown 3-10 00:00: 00 Dose 2022-0 No Unknown 3-10 00:00: 00 Dose 2022-0 No Unknown 3-10 00:00: 00 Dose 2022-0 No Unknown 3-10 00:00: 00 Dose 2022-0 No Unknown 3-10 00:00: 00 Dose 2022-0 No Unknown 3-10 00:00: 00 Dose 2022-0 No Unknown 3-10 00:00: 00 Dose 2022-0 No Unknown 3-10 00:00: 00 Dose 2022-0 No Unknown 3-10 00:00: 00 Dose 2022-0 No Unknown 3-10 00:00: 00 Dose 2022-0 No Unknown 3-10 00:00: 00 Dose 2022-0 No Unknown 3-10 00:00: 00 Dose 2022-0 No Unknown 3-10 00:00: 00 Dose 2022-0 No Unknown 3-10 00:00: 00 Dose 2022-0 No Unknown 3-10 00:00: 00 Dose 2022-0 No Unknown 3-10 00:00: 00 Dose 2022-0 No Unknown 3-10 00:00: 00 Dose 2022-0 No Unknown 3-10 00:00: 00 Dose 2022-0 No Unknown 3-10 00:00: 00 Dose 2022-0 No Unknown 3-10 00:00: 00 Dose 2022-0 No Unknown 3-10 00:00: 00 Dose 2022-0 No Unknown 3-10 00:00: 00 Dose 2022-0 No Unknown 3-10 00:00: 00 Dose 2022-0 No Unknown 3-10 00:00: 00 Dose 2022-0 No Unknown 3-10 00:00: 00 Dose 2022-0 No Unknown 3-10 00:00: 00 Dose 2022-0 No Unknown 3-10 00:00: 00 Dose 2022-0 No Unknown 3-10 00:00: 00 Dose 2022-0 No Unknown 3-10 00:00: 00 Dose 2022-0 No Unknown 3-10 00:00: 00 Dose 2022-0 No Unknown 3-10 00:00: 00 Dose 2022-0 No Unknown 3-10 00:00: 00 Dose 2022-0 No Unknown 3-10 00:00: 00 Dose 2022-0 No Unknown 3-10 00:00: 00 Dose 2022-0 No Unknown 3-10 00:00: 00 Dose 2022-0 No Unknown 3-10 00:00: 00 Dose 2022-0 No Unknown 3-10 00:00: 00 Dose 2022-0 No Unknown 3-10 00:00: 00 Dose 2022-0 No Unknown 3-10 00:00: 00 Dose 2022-0 No Unknown 3-10 00:00: 00 Dose 2022-0 No Unknown 3-10 00:00: 00 Dose 2022-0 No Unknown 3-10 00:00: 00 Dose 2022-0 No Unknown 3-10 00:00: 00 Dose 2022-0 No Unknown 3-10 00:00: 00 Dose 2022-0 No Unknown 3-10 00:00: 00 Dose 2022-0 No Unknown 3-10 00:00: 00 Dose 2022-0 No Unknown 3-10 00:00: 00 Dose 2022-0 No Unknown 3-10 00:00: 00 Dose 2022-0 No Unknown 3-10 00:00: 00 Dose 2022-0 No Unknown 3-10 00:00: 00 Dose 2022-0 No Unknown 3-10 00:00: 00 Dose 2022-0 No Unknown 3-10 00:00: 00 Dose 2022-0 No Unknown 3-10 00:00: 00 Dose 2022-0 No Unknown 3-10 00:00: 00 Dose 2022-0 No Unknown 3-10 00:00: 00 Dose 2022-0 No Unknown 3-10 00:00: 00 Dose 2022-0 No Unknown 3-10 00:00: 00 Dose 2022-0 No Unknown 3-10 00:00: 00 Dose 2022-0 No Unknown 3-10 00:00: 00 Dose 2022-0 No Unknown 3-10 00:00: 00 Dose 2022-0 No Unknown 3-10 00:00: 00 Dose 2022-0 No Unknown 3-10 00:00: 00 Dose 2022-0 No Unknown 3-10 00:00: 00 Dose 2022-0 No Unknown 3-10 00:00: 00 Dose 2022-0 No Unknown 3-10 00:00: 00 Dose 2022-0 No Unknown 3-10 00:00: 00 Dose 2022-0 No Unknown 3-10 00:00: 00 Dose 2022-0 No Unknown 3-10 00:00: 00 Dose 2022-0 No Unknown 3-10 00:00: 00 Dose 2022-0 No Unknown 3-10 00:00: 00 Dose 2022-0 No Unknown 3-10 00:00: 00 Dose 2022-0 No Unknown 3-10 00:00: 00 Dose 2022-0 No Unknown 3-10 00:00: 00 Dose 2022-0 No Unknown 3-10 00:00: 00 Dose 2022-0 No Unknown 3-10 00:00: 00 Dose 2022-0 No Unknown 3-10 00:00: 00 Dose 2022-0 No Unknown 3-10 00:00: 00 Dose 2022-0 No Unknown 3-10 00:00: 00 Dose 2022-0 No Unknown 3-10 00:00: 00 Dose 2022-0 No Unknown 3-10 00:00: 00 Dose 2022-0 No Unknown 3-10 00:00: 00 Dose 2022-0 No Unknown 3-10 00:00: 00 Dose 2022-0 No Unknown 3-10 00:00: 00 Dose 2022-0 No Unknown 3-10 00:00: 00 Dose 2022-0 No Unknown 3-10 00:00: 00 Dose 2022-0 No Unknown 3-10 00:00: 00 Dose 2022-0 No Unknown 3-10 00:00: 00 Dose 2022-0 No Unknown 3-10 00:00: 00 Dose 2022-0 No Unknown 3-10 00:00: 00 Dose 2022-0 No Unknown 3-10 00:00: 00 Dose 2022-0 No Unknown 3-10 00:00: 00 Dose 2022-0 No Unknown 3-10 00:00: 00 Dose 2022-0 No Unknown 3-10 00:00: 00 Dose 2022-0 No Unknown 3-10 00:00: 00 Dose 2022-0 No Unknown 3-10 00:00: 00 Dose 2022-0 No Unknown 3-10 00:00: 00 Dose 2022-0 No Unknown 3-10 00:00: 00 Dose 2022-0 No Unknown 3-10 00:00: 00 Dose 2022-0 No Unknown 3-10 00:00: 00 Dose 2022-0 No Unknown 3-10 00:00: 00 Dose 2022-0 No Unknown 3-10 00:00: 00 Dose 2022-0 No Unknown 3-10 00:00: 00 Dose 2022-0 No Unknown 3-10 00:00: 00 Dose 2022-0 No Unknown 3-10 00:00: 00 Dose 2022-0 No Unknown 3-10 00:00: 00 Dose 2022-0 No Unknown 3-10 00:00: 00 Dose 2022-0 No Unknown 3-10 00:00: 00 Dose 2022-0 No Unknown 3-10 00:00: 00 Dose 2022-0 No Unknown 3-10 00:00: 00 Dose 2022-0 No Unknown 3-10 00:00: 00 Dose 2022-0 No Unknown 3-10 00:00: 00 Dose 2022-0 No Unknown 3-10 00:00: 00 Dose 2022-0 No Unknown 3-10 00:00: 00 Dose 2022-0 No Unknown 3-10 00:00: 00 Dose 2022-0 No Unknown 3-04 00:00: 00 Dose 2022-0 No Unknown 3-04 00:00: 00 Dose 2022-0 No Unknown 3-04 00:00: 00 Dose 2022-0 No Unknown 3-04 00:00: 00 Dose 2022-0 No Unknown 3-04 00:00: 00 Dose 2022-0 No Unknown 3-04 00:00: 00 Dose 2022-0 No Unknown 3-04 00:00: 00 Dose 2022-0 No Unknown 3-04 00:00: 00 Dose 2022-0 No Unknown 3-04 00:00: 00 Dose 2022-0 No Unknown 3-04 00:00: 00 Dose 2022-0 No Unknown 3-04 00:00: 00 Dose 2022-0 No Unknown 3-04 00:00: 00 Dose 2022-0 No Unknown 3-04 00:00: 00 Dose 2022-0 No Unknown 3-04 00:00: 00 Dose 2022-0 No Unknown 3-04 00:00: 00 Dose 2022-0 No Unknown 3-04 00:00: 00 Dose 2022-0 No Unknown 3-04 00:00: 00 Dose 2022-0 No Unknown 3-04 00:00: 00 Dose 2022-0 No Unknown 3-04 00:00: 00 Dose 2022-0 No Unknown 3-04 00:00: 00 Dose 2022-0 No Unknown 3-04 00:00: 00 Dose 2022-0 No Unknown 3-04 00:00: 00 Dose 2022-0 No Unknown 3-04 00:00: 00 Dose 2022-0 No Unknown 3-04 00:00: 00 Dose 2022-0 No Unknown 3-04 00:00: 00 Dose 2022-0 No Unknown 3-04 00:00: 00 Dose 2022-0 No Unknown 3-04 00:00: 00 Dose 2022-0 No Unknown 3-04 00:00: 00 Dose 2022-0 No Unknown 3-04 00:00: 00 Dose 2022-0 No Unknown 3-04 00:00: 00 Dose 2022-0 No Unknown 3-04 00:00: 00 Dose 2022-0 No Unknown 3-04 00:00: 00 Dose 2022-0 No Unknown 3-04 00:00: 00 Dose 2022-0 No Unknown 3-04 00:00: 00 Dose 2022-0 No Unknown 3-04 00:00: 00 Dose 2022-0 No Unknown 3-04 00:00: 00 Dose 2022-0 No Unknown 3-04 00:00: 00 Dose 2022-0 No Unknown 3-04 00:00: 00 Dose 2022-0 No Unknown 3-04 00:00: 00 Dose 2022-0 No Unknown 3-04 00:00: 00 Dose 2022-0 No Unknown 3-04 00:00: 00 Dose 2022-0 No Unknown 3-04 00:00: 00 Dose 2022-0 No Unknown 3-04 00:00: 00 Dose 2022-0 No Unknown 3-04 00:00: 00 Dose 2022-0 No Unknown 3-04 00:00: 00 Dose 2022-0 No Unknown 3-04 00:00: 00 Dose 2022-0 No Unknown 3-04 00:00: 00 Dose 2022-0 No Unknown 3-04 00:00: 00 Dose 2022-0 No Unknown 3-04 00:00: 00 Dose 2022-0 No Unknown 3-04 00:00: 00 Dose 2022-0 No Unknown 3-04 00:00: 00 Dose 2022-0 No Unknown 3-04 00:00: 00 Dose 2022-0 No Unknown 3-04 00:00: 00 Dose 2022-0 No Unknown 3-04 00:00: 00 Dose 2022-0 No Unknown 3-04 00:00: 00 Dose 2022-0 No Unknown 3-04 00:00: 00 Dose 2022-0 No Unknown 3-04 00:00: 00 Dose 2022-0 No Unknown 3-04 00:00: 00 Dose 2022-0 No Unknown 3-04 00:00: 00 Dose 2022-0 No Unknown 3-04 00:00: 00 Dose 2022-0 No Unknown 3-04 00:00: 00 Dose 2022-0 No Unknown 3-04 00:00: 00 Dose 2022-0 No Unknown 3-04 00:00: 00 Dose 2022-0 No Unknown 3-04 00:00: 00 Dose 2022-0 No Unknown 3-04 00:00: 00 Dose 2022-0 No Unknown 3-04 00:00: 00 Dose 2022-0 No Unknown 3-04 00:00: 00 Dose 2022-0 No Unknown 3-04 00:00: 00 Dose 2022-0 No Unknown 3-04 00:00: 00 Dose 2022-0 No Unknown 3-04 00:00: 00 Dose 2022-0 No Unknown 3-04 00:00: 00 Dose 2022-0 No Unknown 3-04 00:00: 00 Dose 2022-0 No Unknown 3-04 00:00: 00 Dose 2022-0 No Unknown 3-04 00:00: 00 Dose 2022-0 No Unknown 3-04 00:00: 00 Dose 2022-0 No Unknown 3-04 00:00: 00 Dose 2022-0 No Unknown 3-04 00:00: 00 Dose 2022-0 No Unknown 3-04 00:00: 00 Dose 2022-0 No Unknown 3-04 00:00: 00 Dose 2022-0 No Unknown 3-04 00:00: 00 Dose 2022-0 No Unknown 3-04 00:00: 00 Dose 2022-0 No Unknown 3-04 00:00: 00 Dose 2022-0 No Unknown 3-04 00:00: 00 Dose 2022-0 No Unknown 3-04 00:00: 00 Dose 2022-0 No Unknown 3-04 00:00: 00 Dose 2022-0 No Unknown 3-04 00:00: 00 Dose 2022-0 No Unknown 3-04 00:00: 00 Dose 2022-0 No Unknown 3-04 00:00: 00 Dose 2022-0 No Unknown 3-04 00:00: 00 Dose 2022-0 No Unknown 3-04 00:00: 00 Dose 2022-0 No Unknown 3-04 00:00: 00 Dose 2022-0 No Unknown 3-04 00:00: 00 Dose 2022-0 No Unknown 3-04 00:00: 00 Dose 2022-0 No Unknown 3-04 00:00: 00 Dose 2022-0 No Unknown 3-04 00:00: 00 Dose 2022-0 No Unknown 3-04 00:00: 00 Dose 2022-0 No Unknown 3-04 00:00: 00 Dose 2022-0 No Unknown 3-04 00:00: 00 Dose 2022-0 No Unknown 3-04 00:00: 00 Dose 2022-0 No Unknown 3-04 00:00: 00 Dose 2022-0 No Unknown 3-04 00:00: 00 Dose 2022-0 No Unknown 3-04 00:00: 00 Dose 2022-0 No Unknown 3-04 00:00: 00 Dose 2022-0 No Unknown 3-04 00:00: 00 Dose 2022-0 No Unknown 3-04 00:00: 00 Dose 2022-0 No Unknown 3-04 00:00: 00 Dose 2022-0 No Unknown 3-04 00:00: 00 Dose 2022-0 No Unknown 3-04 00:00: 00 Dose 2022-0 No Unknown 3-04 00:00: 00 Dose 2022-0 No Unknown 3-04 00:00: 00 Dose 2022-0 No Unknown 3-04 00:00: 00 Dose 2022-0 No Unknown 3-04 00:00: 00 Dose 2022-0 No Unknown 3-04 00:00: 00 Dose 2022-0 No Unknown 3-04 00:00: 00 Dose 2022-0 No Unknown 3-04 00:00: 00 Dose 2022-0 No Unknown 3-04 00:00: 00 Dose 2022-0 No Unknown 3-04 00:00: 00 Dose 2022-0 No Unknown 3-04 00:00: 00 Dose 2022-0 No Unknown 3-04 00:00: 00 Dose 2022-0 No Unknown 3-04 00:00: 00 Dose 2022-0 No Unknown 3-04 00:00: 00 Dose 2022-0 No Unknown 3-04 00:00: 00 Dose 2022-0 No Unknown 3-04 00:00: 00 Dose 2022-0 No Unknown 3-04 00:00: 00 Dose 2022-0 No Unknown 3-04 00:00: 00 Dose 2022-0 No Unknown 3-04 00:00: 00 Dose 2022-0 No Unknown 3-04 00:00: 00 Dose 2022-0 No Unknown 3-04 00:00: 00 Dose 2022-0 No Unknown 3-04 00:00: 00 Dose 2022-0 No Unknown 3-04 00:00: 00 Dose 2022-0 No Unknown 3-04 00:00: 00 Dose 2022-0 No Unknown 3-04 00:00: 00 Dose 2022-0 No Unknown 3-04 00:00: 00 Dose 2022-0 No Unknown 3-04 00:00: 00 Dose 2022-0 No Unknown 3-04 00:00: 00 Dose 2022-0 No Unknown 3-04 00:00: 00 Dose 2022-0 No Unknown 3-04 00:00: 00 Dose 2022-0 No Unknown 3-04 00:00: 00 Dose 2022-0 No Unknown 3-04 00:00: 00 Dose 2022-0 No Unknown 3-04 00:00: 00 Dose 2022-0 No Unknown 3-04 00:00: 00 Dose 2022-0 No Unknown 3-04 00:00: 00 Dose 2022-0 No Unknown 3-04 00:00: 00 Dose 2022-0 No Unknown 3-04 00:00: 00 Dose 2022-0 No Unknown 3-04 00:00: 00 Dose 2022-0 No Unknown 3-04 00:00: 00 Dose 2022-0 No Unknown 3-04 00:00: 00 Dose 2022-0 No Unknown 3-04 00:00: 00 Dose 2022-0 No Unknown 3-04 00:00: 00 Dose 2022-0 No Unknown 3-04 00:00: 00 Dose 2022-0 No Unknown 3-04 00:00: 00 Dose 2022-0 No Unknown 3-04 00:00: 00 Dose 2022-0 No Unknown 3-04 00:00: 00 Dose 2022-0 No Unknown 3-04 00:00: 00 Dose 2022-0 No Unknown 3-04 00:00: 00 Dose 2022-0 No Unknown 3-04 00:00: 00 Dose 2022-0 No Unknown 3-04 00:00: 00 Dose 2022-0 No Unknown 3-04 00:00: 00 Dose 2022-0 No Unknown 3-04 00:00: 00 Dose 2022-0 No Unknown 3-04 00:00: 00 Dose 2022-0 No Unknown 3-04 00:00: 00 Dose 2022-0 No Unknown 3-04 00:00: 00 Dose 2022-0 No Unknown 3-04 00:00: 00 Dose 2022-0 No Unknown 3-04 00:00: 00 Dose 2022-0 No Unknown 3-04 00:00: 00 Dose 2022-0 No Unknown 3-04 00:00: 00 Dose 2022-0 No Unknown 3-04 00:00: 00 Dose 2022-0 No Unknown 3-04 00:00: 00 Dose 2022-0 No Unknown 3-04 00:00: 00 Dose 2022-0 No Unknown 3-04 00:00: 00 Dose 2022-0 No Unknown 3-04 00:00: 00 Dose 2022-0 No Unknown 3-04 00:00: 00 Dose 2022-0 No Unknown 3-04 00:00: 00 Dose 2022-0 No Unknown 3-04 00:00: 00 Dose 2022-0 No Unknown 3-04 00:00: 00 Dose 2022-0 No Unknown 3-04 00:00: 00 Dose 2022-0 No Unknown 3-04 00:00: 00 Dose 2022-0 No Unknown 3-04 00:00: 00 Dose 2022-0 No Unknown 3-04 00:00: 00 Dose 2022-0 No Unknown 3-04 00:00: 00 Dose 2022-0 No Unknown 3-04 00:00: 00 Dose 2022-0 No Unknown 3-04 00:00: 00 Dose 2022-0 No Unknown 3-04 00:00: 00 Dose 2022-0 No Unknown 3-04 00:00: 00 Dose 2022-0 No Unknown 3-04 00:00: 00 Dose 2022-0 No Unknown 3-04 00:00: 00 Dose 2022-0 No Unknown 3-04 00:00: 00 Dose 2022-0 No Unknown 3-04 00:00: 00 Dose 2022-0 No Unknown 3-04 00:00: 00 Dose 2022-0 No Unknown 3-04 00:00: 00 Dose 2022-0 No Unknown 3-04 00:00: 00 Dose 2022-0 No Unknown 3-04 00:00: 00 Dose 2022-0 No Unknown 3-04 00:00: 00 Dose 2022-0 No Unknown 3-04 00:00: 00 Dose 2022-0 No Unknown 3-04 00:00: 00 Dose 2022-0 No Unknown 3-04 00:00: 00 Dose 2022-0 No Unknown 3-04 00:00: 00 Dose 2022-0 No Unknown 3-04 00:00: 00 Dose 2022-0 No Unknown 3-04 00:00: 00 Dose 2022-0 No Unknown 3-04 00:00: 00 Dose 2022-0 No Unknown 3-04 00:00: 00 Dose 2022-0 No Unknown 3-04 00:00: 00 Dose 2022-0 No Unknown 3-04 00:00: 00 Dose 2022-0 No Unknown 3-04 00:00: 00 Dose 2022-0 No Unknown 3-04 00:00: 00 Dose 2022-0 No Unknown 3-04 00:00: 00 Dose 2022-0 No Unknown 3-04 00:00: 00 Dose 2022-0 No Unknown 3-04 00:00: 00 Dose 2022-0 No Unknown 3-04 00:00: 00 Dose 2022-0 No Unknown 3-04 00:00: 00 Dose 2022-0 No Unknown 3-04 00:00: 00 Dose 2022-0 No Unknown 3-04 00:00: 00 Dose 2022-0 No Unknown 3-04 00:00: 00 Dose 2022-0 No Unknown 3-04 00:00: 00 Dose 2022-0 No Unknown 3-04 00:00: 00 Dose 2022-0 No Unknown 3-04 00:00: 00 Dose 2022-0 No Unknown 3-04 00:00: 00 Dose 2022-0 No Unknown 3-04 00:00: 00 Dose 2022-0 No Unknown 3-04 00:00: 00 Dose 2022-0 No Unknown 3-04 00:00: 00 Dose 2022-0 No Unknown 3-04 00:00: 00 Dose 2022-0 No Unknown 3-04 00:00: 00 Dose 2022-0 No Unknown 3-04 00:00: 00 Dose 2022-0 No Unknown 3-04 00:00: 00 Dose 2022-0 No Unknown 3-04 00:00: 00 Dose 2022-0 No Unknown 3-04 00:00: 00 Dose 2022-0 No Unknown 3-04 00:00: 00 Dose 2022-0 No Unknown 3-04 00:00: 00 Dose 2022-0 No Unknown 3-04 00:00: 00 Dose 2022-0 No Unknown 3-04 00:00: 00 Dose 2022-0 No Unknown 3-04 00:00: 00 Dose 2022-0 No Unknown 3-04 00:00: 00 Dose 2022-0 No Unknown 3-04 00:00: 00 Dose 2022-0 No Unknown 3-04 00:00: 00 Dose 2022-0 No Unknown 3-04 00:00: 00 Dose 2022-0 No Unknown 3-04 00:00: 00 Dose 2022-0 No Unknown 3-04 00:00: 00 Dose 2022-0 No Unknown 3-04 00:00: 00 Dose 2022-0 No Unknown 3-04 00:00: 00 Dose 2022-0 No Unknown 3-04 00:00: 00 Dose 2022-0 No Unknown 3-04 00:00: 00 Dose 2022-0 No Unknown 3-04 00:00: 00 Dose 2022-0 No Unknown 3-04 00:00: 00 Dose 2022-0 No Unknown 3-04 00:00: 00 Dose 2022-0 No Unknown 3-04 00:00: 00 Dose 2022-0 No Unknown 3-04 00:00: 00 Dose 2022-0 No Unknown 3-04 00:00: 00 Dose 2022-0 No Unknown 3-04 00:00: 00 Dose 2022-0 No Unknown 3-04 00:00: 00 Dose 2022-0 No Unknown 3-04 00:00: 00 Dose 2022-0 No Unknown 3-04 00:00: 00 Dose 2022-0 No Unknown 3-04 00:00: 00 Dose 2022-0 No Unknown 3-04 00:00: 00 Dose 2022-0 No Unknown 3-04 00:00: 00 Dose 2022-0 No Unknown 3-04 00:00: 00 Dose 2022-0 No Unknown 3-04 00:00: 00 Dose 2022-0 No Unknown 3-04 00:00: 00 Dose 2022-0 No Unknown 3-04 00:00: 00 Dose 2022-0 No Unknown 3-04 00:00: 00 Dose 2022-0 No Unknown 3-04 00:00: 00 Dose 2022-0 No Unknown 3-04 00:00: 00 Dose 2022-0 No Unknown 3-04 00:00: 00 Dose 2022-0 No Unknown 3-04 00:00: 00 Dose 2022-0 No Unknown 3-04 00:00: 00 Dose 2022-0 No Unknown 3-04 00:00: 00 Dose 2022-0 No Unknown 3-04 00:00: 00 Dose 2022-0 No Unknown 3-04 00:00: 00 Dose 2022-0 No Unknown 3-04 00:00: 00 Dose 2022-0 No Unknown 3-04 00:00: 00 Dose 2022-0 No Unknown 3-04 00:00: 00 Dose 2022-0 No Unknown 3-04 00:00: 00 Dose 2022-0 No Unknown 3-04 00:00: 00 Dose 2022-0 No Unknown 3-04 00:00: 00 Dose 2022-0 No Unknown 3-04 00:00: 00 Dose 2022-0 No Unknown 3-04 00:00: 00 Dose 2022-0 No Unknown 3-04 00:00: 00 Dose 2022-0 No Unknown 3-04 00:00: 00 Dose 2022-0 No Unknown 3-04 00:00: 00 Dose 2022-0 No Unknown 3-04 00:00: 00 Dose 2022-0 No Unknown 3-04 00:00: 00 Levemir 2022-0 No 20(3 FlexTouch 2-10 mL) U-100 00:00: Insulin 100 00 unit/mL (3 mL) subcutaneou s pen Dose 2022-0 No Unknown 2-10 00:00: 00 Levemir 2022-0 No 20(3 FlexTouch 2-10 mL) U-100 00:00: Insulin 100 00 unit/mL (3 mL) subcutaneou s pen Dose 2-0 No Unknown 2-10 00:00: 00 Levemir 2022-0 No 20(3 FlexTouch 2-10 mL) U-100 00:00: Insulin 100 00 unit/mL (3 mL) subcutaneou s pen Dose 2-0 No Unknown 2-10 00:00: 00 Levemir 2022-0 No 20(3 FlexTouch 2-10 mL) U-100 00:00: Insulin 100 00 unit/mL (3 mL) subcutaneou s pen Levemir 2-0 No 20(3 FlexTouch 2-10 mL) U-100 00:00: Insulin 100 00 unit/mL (3 mL) subcutaneou s pen Dose 2-0 No Unknown 2-10 00:00: 00 Dose 2-0 No Unknown 2-10 00:00: 00 pentoxifyll 2-0 No 1mg ine ER 400 1-27 mg 00:00: tablet,exte 00 nded release pentoxifyll 2-0 No 1mg ine ER 400 1-27 mg 00:00: tablet,exte 00 nded release pentoxifyll 2-0 No 1mg ine ER 400 1-27 mg 00:00: tablet,exte 00 nded release pentoxifyll 2-0 No 1mg ine ER 400 1-27 mg 00:00: tablet,exte 00 nded release pentoxifyll 2-0 No 1mg ine ER 400 1-27 mg 00:00: tablet,exte 00 nded release Dose 2-0 No Unknown 1-25 00:00: 00 Dose 2022-0 No Unknown 1-25 00:00: 00 Dose 2-0 No Unknown 1-25 00:00: 00 Dose 2-0 No Unknown 1-25 00:00: 00 Dose 2-0 No Unknown 1-25 00:00: 00 Dose 2022-0 No Unknown 1-25 00:00: 00 Dose 2-0 No Unknown 1-25 00:00: 00 Dose 2-0 No Unknown 1-25 00:00: 00 Dose 2022-0 No Unknown 1-25 00:00: 00 Dose 2-0 No Unknown 1-25 00:00: 00 hydrochloro 2020-1 No 1mg thiazide 50 2-22 mg tablet 00:00: 00 hydrochloro 2020-1 No 1mg thiazide 50 2-22 mg tablet 00:00: 00 hydrochloro 2020-1 No 1mg thiazide 50 2-22 mg tablet 00:00: 00 hydrochloro 2020-1 No 1mg thiazide 50 2-22 mg tablet 00:00: 00 hydrochloro 2020-1 No 1mg thiazide 50 2-22 mg tablet 00:00: 00 Dose 2020-1 No Unknown 2-18 00:00: 00 Dose 2020-1 No Unknown 2-18 00:00: 00 Dose 2020-1 No Unknown 2-18 00:00: 00 Dose 2020-1 No Unknown 2-18 00:00: 00 Dose 2020-1 No Unknown 2-18 00:00: 00 Levemir 2020-12 No 20(3 FlexTouch 2-16 mL) U-100 00:00: Insulin 100 00 unit/mL (3 mL) subcutaneou s pen hydrochloro 2020-1 No 1mg thiazide 50 2-16 mg tablet 00:00: 00 Levemir 2020-12 No 20(3 FlexTouch 2-16 mL) U-100 00:00: Insulin 100 00 unit/mL (3 mL) subcutaneou s pen hydrochloro 2020-1 No 1mg thiazide 50 2-16 mg tablet 00:00: 00 Levemir 2020-12 No 20(3 FlexTouch 2-16 mL) U-100 00:00: Insulin 100 00 unit/mL (3 mL) subcutaneou s pen hydrochloro 2020-1 No 1mg thiazide 50 2-16 mg tablet 00:00: 00 Levemir 2020-12 No 20(3 FlexTouch 2-16 mL) U-100 00:00: Insulin 100 00 unit/mL (3 mL) subcutaneou s pen hydrochloro 2020-1 No 1mg thiazide 50 2-16 mg tablet 00:00: 00 Levemir 2020-12 No 20(3 FlexTouch 2-16 mL) U-100 00:00: Insulin 100 00 unit/mL (3 mL) subcutaneou s pen hydrochloro 2020-12 No 1mg thiazide 50 2-16 mg tablet 00:00: 00 vardenafil 2020-12 No 1mg 20 mg 2-11 tablet 00:00: 00 vardenafil 2020-12 No 1mg 20 mg 2-11 tablet 00:00: 00 vardenafil 2020-12 No 1mg 20 mg 2-11 tablet 00:00: 00 vardenafil 2020-12 No 1mg 20 mg 2-11 tablet 00:00: 00 vardenafil 2020-12 No 1mg 20 mg 2-11 tablet 00:00: 00 testosteron 2020-12 No mg/mL e cypionate 2-09 200 mg/mL 00:00: intramuscul 00 ar oil testosteron 2020-12 No mg/mL e cypionate 2-09 200 mg/mL 00:00: intramuscul 00 ar oil testosteron 2020-12 No mg/mL e cypionate 2-09 200 mg/mL 00:00: intramuscul 00 ar oil testosteron 2020-12 No mg/mL e cypionate 2-09 200 mg/mL 00:00: intramuscul 00 ar oil testosteron 2020-12 No mg/mL e cypionate 2-09 200 mg/mL 00:00: intramuscul 00 ar oil vardenafil 2020-12 No 1mg 20 mg 2-08 tablet 00:00: 00 vardenafil 1 No 1mg 20 mg 2-08 tablet 00:00: 00 vardenafil 2020- No 1mg 20 mg 2-08 tablet 00:00: 00 vardenafil 2020-1 No 1mg 20 mg 2-08 tablet 00:00: 00 vardenafil 1 No 1mg 20 mg 2-08 tablet 00:00: 00 Dose 2020-1 No Unknown 2-02 00:00: 00 Dose 2020-1 No Unknown 2-02 00:00: 00 Dose 2020-1 No Unknown 2-02 00:00: 00 Dose 2020-1 No Unknown 2-02 00:00: 00 Dose 2020-1 No Unknown 2-02 00:00: 00 Viagra 100 2020-1 No 1mg mg tablet 1-17 00:00: 00 hydrochloro 2020-12 No 1mg thiazide 50 1-17 mg tablet 00:00: 00 hydrocortis 2020-12 No 1mg one acetate 1-17 30 mg 00:00: rectal 00 suppository Viagra 100 2020-12 No 1mg mg tablet 17 00:00: 00 hydrochloro 2020-12 No 1mg thiazide 50 1-17 mg tablet 00:00: 00 hydrocortis 2020-12 No 1mg one acetate 1-17 30 mg 00:00: rectal 00 suppository Viagra 100 2020-12 No 1mg mg tablet 12-17 00:00: 00 hydrochloro 2020-12 No 1mg thiazide 50 1-17 mg tablet 00:00: 00 hydrocortis 2020-12 No 1mg one acetate 1-17 30 mg 00:00: rectal 00 suppository Viagra 100 2020-12 No 1mg mg tablet 12-17 00:00: 00 hydrochloro 2020-12 No 1mg thiazide 50 1-17 mg tablet 00:00: 00 hydrocortis 2020-12 No 1mg one acetate 1-17 30 mg 00:00: rectal 00 suppository Viagra 100 2020-12 No 1mg mg tablet 12-17 00:00: 00 hydrochloro 2020-12 No 1mg thiazide 50 1-17 mg tablet 00:00: 00 hydrocortis 2020-12 No 1mg one acetate 1-17 30 mg 00:00: rectal 00 suppository propranolol 2020-12 No 1mg 20 mg 0-26 tablet 00:00: 00 trazodone 2020- No 1mg 100 mg 0-26 tablet 00:00: 00 propranolol 2020- No 1mg 20 mg 0-26 tablet 00:00: 00 trazodone 2020- No 1mg 100 mg 0-26 tablet 00:00: 00 propranolol 2020-1 No 1mg 20 mg 0-26 tablet 00:00: 00 trazodone 2020- No 1mg 100 mg 0-26 tablet 00:00: 00 propranolol 2020- No 1mg 20 mg 0-26 tablet 00:00: 00 trazodone 2020- No 1mg 100 mg 0-26 tablet 00:00: 00 propranolol 2020- No 1mg 20 mg 0-26 tablet 00:00: 00 trazodone 2020-1 No 1mg 100 mg 0-26 tablet 00:00: 00 testosteron 2020- No mg/mL e cypionate 0-21 200 mg/mL 00:00: intramuscul 00 ar oil testosteron 2020-1 No mg/mL e cypionate 0-21 200 mg/mL 00:00: intramuscul 00 ar oil testosteron 2020-1 No mg/mL e cypionate 0-21 200 mg/mL 00:00: intramuscul 00 ar oil testosteron 2020-1 No mg/mL e cypionate 0-21 200 mg/mL 00:00: intramuscul 00 ar oil testosteron 2020-1 No mg/mL e cypionate 0-21 200 mg/mL 00:00: intramuscul 00 ar oil tadalafil 2020- No 1mg 20 mg 0-20 tablet 00:00: 00 Dose 2020-1 No Unknown 0-20 00:00: 00 tadalafil 2020-1 No 1mg 20 mg 0-20 tablet 00:00: 00 Dose 2020-1 No Unknown 0-20 00:00: 00 tadalafil 2020-1 No 1mg 20 mg 0-20 tablet 00:00: 00 Dose 2020-1 No Unknown 0-20 00:00: 00 tadalafil 2020-1 No 1mg 20 mg 0-20 tablet 00:00: 00 loratadine- 2020-1 No 1mg pseudoephed 0-20 rine ER 10 00:00: mg-240 mg 00 tablet,exte nded [id number] tadalafil 2020-1 No 1mg 20 mg 0-20 tablet 00:00: 00 loratadine- 2020-1 No 1mg pseudoephed 0-20 rine ER 10 00:00: mg-240 mg 00 tablet,exte nded [id number] sildenafil 2020- No 1mg 100 mg 0-19 tablet 00:00: 00 sildenafil 2020-1 No 1mg 100 mg 0-19 tablet 00:00: 00 sildenafil 2020-1 No 1mg 100 mg 0-19 tablet 00:00: 00 sildenafil 2020-1 No 1mg 100 mg 0-19 tablet 00:00: 00 sildenafil 2020-1 No 1mg 100 mg 0-19 tablet 00:00: 00 sildenafil 2020- No 1mg 100 mg 0-19 tablet 00:00: 00 sildenafil 2020- No 1mg 100 mg 0-19 tablet 00:00: 00 sildenafil 2020- No 1mg 100 mg 0-19 tablet 00:00: 00 sildenafil 2020-12 No 1mg 100 mg 0-19 tablet 00:00: 00 sildenafil 2020-12 No 1mg 100 mg 0-19 tablet 00:00: 00 loratadine 2020-12 No 1mg 10 mg 0-08 tablet 00:00: 00 furosemide 2020-12 No 1mg 20 mg 0-08 tablet 00:00: 00 fluticasone 2020-12 No 1mcg/ac propionate 0-08 tuation 50 00:00: mcg/actuati 00 on nasal spray,suspe nsion loratadine 2020-12 No 1mg 10 mg 0-08 tablet 00:00: 00 furosemide 2020-12 No 1mg 20 mg 0-08 tablet 00:00: 00 fluticasone 2020-12 No 1mcg/ac propionate 0-08 tuation 50 00:00: mcg/actuati 00 on nasal spray,suspe nsion loratadine 2020-12 No 1mg 10 mg 0-08 tablet 00:00: 00 furosemide 2020-12 No 1mg 20 mg 0-08 tablet 00:00: 00 fluticasone 2020-12 No 1mcg/ac propionate 0-08 tuation 50 00:00: mcg/actuati 00 on nasal spray,suspe nsion loratadine 2020-12 No 1mg 10 mg 0-08 tablet 00:00: 00 furosemide 2020-12 No 1mg 20 mg 0-08 tablet 00:00: 00 fluticasone 2020-12 No 1mcg/ac propionate 0-08 tuation 50 00:00: mcg/actuati 00 on nasal spray,suspe nsion loratadine 2020-12 No 1mg 10 mg 0-08 tablet 00:00: 00 furosemide 2020-12 No 1mg 20 mg 0-08 tablet 00:00: 00 fluticasone 2020-12 No 1mcg/ac propionate 0-08 tuation 50 00:00: mcg/actuati 00 on nasal spray,suspe nsion metronidazo 0 No 1mg le 500 mg 9-25 tablet 00:00: 00 clarithromy 2021-0 No 1mg butch 500 mg 9-25 tablet 00:00: 00 omeprazole 2021-0 No 1mg 20 mg 9-25 capsule,del 00:00: ayed 00 release metronidazo 2021-0 No 1mg le 500 mg 9-25 tablet 00:00: 00 clarithromy 2021-0 No 1mg butch 500 mg 9-25 tablet 00:00: 00 omeprazole 2021-0 No 1mg 20 mg 9-25 capsule,del 00:00: ayed 00 release metronidazo 2021-0 No 1mg le 500 mg 9-25 tablet 00:00: 00 clarithromy 2021-0 No 1mg butch 500 mg 9-25 tablet 00:00: 00 omeprazole 2021-0 No 1mg 20 mg 9-25 capsule,del 00:00: ayed 00 release metronidazo 2021-0 No 1mg le 500 mg 9-25 tablet 00:00: 00 clarithromy 2021-0 No 1mg butch 500 mg 9-25 tablet 00:00: 00 omeprazole 2021-0 No 1mg 20 mg 9-25 capsule,del 00:00: ayed 00 release metronidazo 2021-0 No 1mg le 500 mg 9-25 tablet 00:00: 00 clarithromy 2021-0 No 1mg butch 500 mg 9-25 tablet 00:00: 00 omeprazole 2021-0 No 1mg 20 mg 9-25 capsule,del 00:00: ayed 00 release propranolol 2021-0 No 1mg 20 mg 9-21 tablet 00:00: 00 bupropion 2021-0 No 1mg HCl SR 150 9-21 mg 00:00: tablet,12 00 hr sustained-r elease trazodone 2021-0 No 1mg 100 mg 9-21 tablet 00:00: 00 propranolol 2021-0 No 1mg 20 mg 9-21 tablet 00:00: 00 bupropion 2021-0 No 1mg HCl SR 150 9-21 mg 00:00: tablet,12 00 hr sustained-r elease trazodone 2021-0 No 1mg 100 mg 9-21 tablet 00:00: 00 propranolol 2021-0 No 1mg 20 mg 9-21 tablet 00:00: 00 bupropion 2021-0 No 1mg HCl SR 150 9-21 mg 00:00: tablet,12 00 hr sustained-r elease trazodone 2021-0 No 1mg 100 mg 9-21 tablet 00:00: 00 propranolol 2021-0 No 1mg 20 mg 9-21 tablet 00:00: 00 bupropion 2021-0 No 1mg HCl SR 150 9-21 mg 00:00: tablet,12 00 hr sustained-r elease trazodone 2021-0 No 1mg 100 mg 9-21 tablet 00:00: 00 propranolol 2021-0 No 1mg 20 mg 9-21 tablet 00:00: 00 bupropion 2021-0 No 1mg HCl SR 150 9-21 mg 00:00: tablet,12 00 hr sustained-r elease trazodone 2021-0 No 1mg 100 mg 9-21 tablet 00:00: 00 Levemir 2021-0 No 20(3 FlexTouch 9-08 mL) U-100 00:00: Insulin 100 00 unit/mL (3 mL) subcutaneou s pen sildenafil 2021-0 No 1mg 100 mg 9-08 tablet 00:00: 00 Levemir 2021-0 No 20(3 FlexTouch 9-08 mL) U-100 00:00: Insulin 100 00 unit/mL (3 mL) subcutaneou s pen sildenafil 2021-0 No 1mg 100 mg 9-08 tablet 00:00: 00 Levemir 2021-0 No 20(3 FlexTouch 9-08 mL) U-100 00:00: Insulin 100 00 unit/mL (3 mL) subcutaneou s pen sildenafil 2021-0 No 1mg 100 mg 9-08 tablet 00:00: 00 Levemir 2021-0 No 20(3 FlexTouch 9-08 mL) U-100 00:00: Insulin 100 00 unit/mL (3 mL) subcutaneou s pen sildenafil 2021-0 No 1mg 100 mg 9-08 tablet 00:00: 00 Levemir 2021-0 No 20(3 FlexTouch 9-08 mL) U-100 00:00: Insulin 100 00 unit/mL (3 mL) subcutaneou s pen sildenafil 2021-0 No 1mg 100 mg 9-08 tablet 00:00: 00 testosteron 1-0 No mg/mL e cypionate 8-04 200 mg/mL 00:00: intramuscul 00 ar oil testosteron 2020-0 No mg/mL e cypionate 8-04 200 mg/mL 00:00: intramuscul 00 ar oil testosteron 1-0 No mg/mL e cypionate 8-04 200 mg/mL 00:00: intramuscul 00 ar oil testosteron 1-0 No mg/mL e cypionate 8-04 200 mg/mL 00:00: intramuscul 00 ar oil testosteron 1-0 No mg/mL e cypionate 8-04 200 mg/mL 00:00: intramuscul 00 ar oil sildenafil 1-0 No 1mg 50 mg 8-03 tablet 00:00: 00 lisinopril 2021-0 No 1mg 2.5 mg 8-03 tablet 00:00: 00 Dose 2021-0 No Unknown 8- 00:00: 00 metformin 2021-0 No 1mg 1,000 mg 8-03 tablet 00:00: 00 Dose 2021-0 No Unknown 8-03 00:00: 00 Levemir 1-0 No 20(3 FlexTouch 8-03 mL) U-100 00:00: Insulin 100 00 unit/mL (3 mL) subcutaneou s pen sildenafil 1-0 No 1mg 50 mg 8-03 tablet 00:00: 00 lisinopril 2021-0 No 1mg 2.5 mg 8-03 tablet 00:00: 00 Dose 2021-0 No Unknown 8- 00:00: 00 metformin 2021-0 No 1mg 1,000 mg 8-03 tablet 00:00: 00 Dose 2021-0 No Unknown 8-03 00:00: 00 Levemir 2021-0 No 20(3 FlexTouch 8-03 mL) U-100 00:00: Insulin 100 00 unit/mL (3 mL) subcutaneou s pen sildenafil 1-0 No 1mg 50 mg 8-03 tablet 00:00: 00 lisinopril 2021-0 No 1mg 2.5 mg 8-03 tablet 00:00: 00 Levemir 2021-0 No 20(3 FlexTouch 8-03 mL) U-100 00:00: Insulin 100 00 unit/mL (3 mL) subcutaneou s pen sildenafil 1-0 No 1mg 50 mg 8-03 tablet 00:00: 00 lisinopril 2021-0 No 1mg 2.5 mg 8-03 tablet 00:00: 00 Dose 2021-0 No Unknown 8-03 00:00: 00 metformin 2021-0 No 1mg 1,000 mg 8-03 tablet 00:00: 00 Dose 2021-0 No Unknown 8- 00:00: 00 Dose 2021-0 No Unknown 8- 00:00: 00 metformin 2021-0 No 1mg 1,000 mg 8-03 tablet 00:00: 00 Dose 2021-0 No Unknown 8-03 00:00: 00 Levemir 2021-0 No 20(3 FlexTouch 8-03 mL) U-100 00:00: Insulin 100 00 unit/mL (3 mL) subcutaneou s pen sildenafil 1-0 No 1mg 50 mg 8-03 tablet 00:00: 00 lisinopril 2021-0 No 1mg 2.5 mg 8-03 tablet 00:00: 00 Dose 1-0 No Unknown 8- 00:00: 00 metformin 1-0 No 1mg 1,000 mg 8-03 tablet 00:00: 00 Dose 1-0 No Unknown 8- 00:00: 00 Levemir 1-0 No 20(3 FlexTouch 8-03 mL) U-100 00:00: Insulin 100 00 unit/mL (3 mL) subcutaneou s pen glimepiride 1-0 No 1mg 2 mg tablet 06-26 00:00: 00 glimepiride 1-0 No 1mg 2 mg tablet 06-26 00:00: 00 glimepiride 1-0 No 1mg 2 mg tablet 06-26 00:00: 00 glimepiride 1-0 No 1mg 2 mg tablet 06-26 00:00: 00 glimepiride 1-0 No 1mg 2 mg tablet 06-26 00:00: 00 Levemir 2021-0 No 20(3 FlexTouch 7-01 mL) U-100 00:00: Insulin 100 00 unit/mL (3 mL) subcutaneou s pen lisinopril 2021-0 No 1mg 2.5 mg 7-01 tablet 00:00: 00 metformin 2021-0 No 1mg 1,000 mg 7-01 tablet 00:00: 00 Levemir 2021-0 No 20(3 FlexTouch 7-01 mL) U-100 00:00: Insulin 100 00 unit/mL (3 mL) subcutaneou s pen lisinopril 2021-0 No 1mg 2.5 mg 7-01 tablet 00:00: 00 metformin 2021-0 No 1mg 1,000 mg 7-01 tablet 00:00: 00 atorvastati 2021-0 No 1mg n 80 mg 7-01 tablet 00:00: 00 atorvastati 2021-0 No 1mg n 80 mg 7-01 tablet 00:00: 00 Levemir 2021-0 No 20(3 FlexTouch 7-01 mL) U-100 00:00: Insulin 100 00 unit/mL (3 mL) subcutaneou s pen lisinopril 1-0 No 1mg 2.5 mg 7- tablet 00:00: 00 metformin 2021-0 No 1mg 1,000 mg 7- tablet 00:00: 00 atorvastati 2021-0 No 1mg n 80 mg 7-01 tablet 00:00: 00 Levemir 2021-0 No 20(3 FlexTouch 7-01 mL) U-100 00:00: Insulin 100 00 unit/mL (3 mL) subcutaneou s pen lisinopril 1-0 No 1mg 2.5 mg 7- tablet 00:00: 00 metformin 2021-0 No 1mg 1,000 mg 7- tablet 00:00: 00 atorvastati 2021-0 No 1mg n 80 mg 7-01 tablet 00:00: 00 Levemir 2021-0 No 20(3 FlexTouch 7-01 mL) U-100 00:00: Insulin 100 00 unit/mL (3 mL) subcutaneou s pen lisinopril 2021-0 No 1mg 2.5 mg 7-01 tablet 00:00: 00 metformin 2021-0 No 1mg 1,000 mg 7-01 tablet 00:00: 00 atorvastati 2021-0 No 1mg n 80 mg 7-01 tablet 00:00: 00 sildenafil 2021-0 No 1mg 25 mg 5-06 tablet 00:00: 00 sildenafil 2021-0 No 1mg 25 mg 5-06 tablet 00:00: 00 sildenafil 2021-0 No 1mg 25 mg 5-06 tablet 00:00: 00 sildenafil 2021-0 No 1mg 25 mg 5-06 tablet 00:00: 00 sildenafil 2021-0 No 1mg 25 mg 5-06 tablet 00:00: 00 Levemir 2021-0 No 20(3 FlexTouch 4-26 mL) U-100 00:00: Insulin 100 00 unit/mL (3 mL) subcutaneou s pen Levemir 1-0 No 20(3 FlexTouch 4-26 mL) U-100 00:00: Insulin 100 00 unit/mL (3 mL) subcutaneou s pen Levemir 1-0 No 20(3 FlexTouch 4-26 mL) U-100 00:00: Insulin 100 00 unit/mL (3 mL) subcutaneou s pen Levemir 1-0 No 20(3 FlexTouch 4-26 mL) U-100 00:00: Insulin 100 00 unit/mL (3 mL) subcutaneou s pen Levemir 1-0 No 20(3 FlexTouch 4-26 mL) U-100 00:00: Insulin 100 00 unit/mL (3 mL) subcutaneou s pen metformin 1-0 No 1mg 1,000 mg 4-15 tablet 00:00: 00 metformin 2021-0 No 1mg 1,000 mg 4-15 tablet 00:00: 00 metformin 2021-0 No 1mg 1,000 mg 4-15 tablet 00:00: 00 metformin 2021-0 No 1mg 1,000 mg 4-15 tablet 00:00: 00 metformin 2021-0 No 1mg 1,000 mg 4-15 tablet 00:00: 00 atorvastati 2021-0 No 1mg n 80 mg 3-22 tablet 00:00: 00 atorvastati 2021-0 No 1mg n 80 mg 3-22 tablet 00:00: 00 atorvastati 2021-0 No 1mg n 80 mg 3-22 tablet 00:00: 00 atorvastati 2021-0 No 1mg n 80 mg 3-22 tablet 00:00: 00 atorvastati 1-0 No 1mg n 80 mg 3-22 tablet 00:00: 00 Levemir 2021-0 No 20(3 FlexTouch 3-19 mL) U-100 00:00: Insulin 100 00 unit/mL (3 mL) subcutaneou s pen simvastatin 1-0 No 1mg 40 mg 3-19 tablet 00:00: 00 lisinopril 2021-0 No 1mg 2.5 mg 3-19 tablet 00:00: 00 metformin 2021-0 No 1mg 1,000 mg 3-19 tablet 00:00: 00 Levemir 2021-0 No 20(3 FlexTouch 3-19 mL) U-100 00:00: Insulin 100 00 unit/mL (3 mL) subcutaneou s pen simvastatin 1-0 No 1mg 40 mg 3-19 tablet 00:00: 00 lisinopril 2021-0 No 1mg 2.5 mg 3-19 tablet 00:00: 00 metformin 2021-0 No 1mg 1,000 mg 3-19 tablet 00:00: 00 Levemir 2021-0 No 20(3 FlexTouch 3-19 mL) U-100 00:00: Insulin 100 00 unit/mL (3 mL) subcutaneou s pen Levemir 1-0 No 20(3 FlexTouch 3-19 mL) U-100 00:00: Insulin 100 00 unit/mL (3 mL) subcutaneou s pen simvastatin 2021-0 No 1mg 40 mg 3-19 tablet 00:00: 00 lisinopril 2021-0 No 1mg 2.5 mg 3-19 tablet 00:00: 00 metformin 2021-0 No 1mg 1,000 mg 3-19 tablet 00:00: 00 simvastatin 2021-0 No 1mg 40 mg 3-19 tablet 00:00: 00 lisinopril 2021-0 No 1mg 2.5 mg 3-19 tablet 00:00: 00 metformin 2021-0 No 1mg 1,000 mg 3-19 tablet 00:00: 00 Levemir 2021-0 No 20(3 FlexTouch 3-19 mL) U-100 00:00: Insulin 100 00 unit/mL (3 mL) subcutaneou s pen simvastatin 2021-0 No 1mg 40 mg 3-19 tablet 00:00: 00 lisinopril 1-0 No 1mg 2.5 mg 3-19 tablet 00:00: 00 metformin 1-0 No 1mg 1,000 mg 3-19 tablet 00:00: 00 simvastatin 2020-0 No 1mg 40 mg 5-12 tablet 00:00: 00 simvastatin 2020-0 No 1mg 40 mg 5-12 tablet 00:00: 00 simvastatin 2020-0 No 1mg 40 mg 5-12 tablet 00:00: 00 simvastatin 2020-0 No 1mg 40 mg 5-12 tablet 00:00: 00 simvastatin 2020-0 No 1mg 40 mg 5-12 tablet 00:00: 00 metformin 2020-0 No 1mg 500 mg 5-07 tablet 00:00: 00 metformin 2020-0 No 1mg 500 mg 5-07 tablet 00:00: 00 metformin 2020-0 No 1mg 500 mg 5-07 tablet 00:00: 00 metformin 2020-0 No 1mg 500 mg 5-07 tablet 00:00: 00 metformin 2020-0 No 1mg 500 mg 5-07 tablet 00:00: 00 Immunizations Ordered Immunization Filled Immunization Date Status Commen ts Source Name Name Michelle COVID-19 2021-11-15 Completed Vaccine 00:00:00 Moderna COVID-19 2021-11-15 Completed Vaccine 00:00:00 Moderna COVID-19 2021-11-15 Completed Vaccine 00:00:00 Moderna COVID-19 2021-11-15 Completed Vaccine 00:00:00 Moderna COVID-19 2021-11-15 Completed Vaccine 00:00:00 Vital Signs Vital Name Observation Time Observation Value Comments Source BP Systolic 2022-09-18 13:45:00 131 mm[Hg] BP Diastolic 2022-09-18 13:45:00 81 mm[Hg] Weight Measured 2022-09-18 13:45:00 284.20 pounds Height Measured 2022-09-18 13:45:00 65.00 inches Body Temperature 2022-09-18 13:45:00 98.00 degrees Heart Rate 2022-09-18 13:45:00 104.00 /min Respiratory Rate 2022-09-18 13:45:00 18.00 /min BP Systolic 2022-09-11 08:16:00 136 mm[Hg] BP Diastolic 2022-09-11 08:16:00 79 mm[Hg] Weight Measured 2022-09-11 08:16:00 284.40 pounds Height Measured 2022-09-11 08:16:00 65.00 inches Body Temperature 2022-09-11 08:16:00 98.30 degrees Heart Rate 2022-09-11 08:16:00 95.00 /min Respiratory Rate 2022-09-11 08:16:00 17.00 /min BP Systolic 2022-07-03 10:07:00 117 mm[Hg] BP Diastolic 2022-07-03 10:07:00 74 mm[Hg] Weight Measured 2022-07-03 10:07:00 278.20 pounds Height Measured 2022-07-03 10:07:00 65.00 inches Body Temperature 2022-07-03 10:07:00 98.20 degrees Heart Rate 2022-07-03 10:07:00 109.00 /min Respiratory Rate 2022-07-03 10:07:00 17.00 /min BP Systolic 2022-06-26 07:58:00 133 mm[Hg] BP Diastolic 2022-06-26 07:58:00 75 mm[Hg] Weight Measured 2022-06-26 07:58:00 277.40 pounds Height Measured 2022-06-26 07:58:00 65.00 inches Body Temperature 2022-06-26 07:58:00 98.30 degrees Heart Rate 2022-06-26 07:58:00 109.00 /min Respiratory Rate 2022-06-26 07:58:00 17.00 /min BP Systolic 2022-05-14 17:33:00 129 mm[Hg] BP Diastolic 2022-05-14 17:33:00 82 mm[Hg] Weight Measured 2022-05-14 17:33:00 262.80 pounds Height Measured 2022-05-14 17:33:00 65.00 inches Body Temperature 2022-05-14 17:33:00 98.40 degrees Heart Rate 2022-05-14 17:33:00 110.00 /min Respiratory Rate 2022-05-14 17:33:00 17.00 /min BP Systolic 2022-03-07 09:19:00 122 mm[Hg] BP Diastolic 2022-03-07 09:19:00 79 mm[Hg] Weight Measured 2022-03-07 09:19:00 258.00 pounds Height Measured 2022-03-07 09:19:00 65.00 inches Body Temperature 2022-03-07 09:19:00 98.00 degrees Heart Rate 2022-03-07 09:19:00 102.00 /min Respiratory Rate 2022-03-07 09:19:00 16.00 /min BP Systolic 2022-02-15 16:43:00 122 mm[Hg] BP Diastolic 2022-02-15 16:43:00 76 mm[Hg] Weight Measured 2022-02-15 16:43:00 253.80 pounds Height Measured 2022-02-15 16:43:00 65.00 inches Body Temperature 2022-02-15 16:43:00 98.40 degrees Heart Rate 2022-02-15 16:43:00 113.00 /min Respiratory Rate 2022-02-15 16:43:00 16.00 /min BP Systolic 2022-01-29 08:25:00 133 mm[Hg] BP Diastolic 2022-01-29 08:25:00 83 mm[Hg] Weight Measured 2022-01-29 08:25:00 257.00 pounds Height Measured 2022-01-29 08:25:00 65.00 inches Body Temperature 2022-01-29 08:25:00 98.50 degrees Heart Rate 2022-01-29 08:25:00 104.00 /min Respiratory Rate 2022-01-29 08:25:00 18.00 /min BP Systolic 2021-12-25 16:15:00 119 mm[Hg] BP Diastolic 2021-12-25 16:15:00 79 mm[Hg] Weight Measured 2021-12-25 16:15:00 256.80 pounds Height Measured 2021-12-25 16:15:00 65.00 inches Body Temperature 2021-12-25 16:15:00 97.90 degrees Heart Rate 2021-12-25 16:15:00 113.00 /min Respiratory Rate 2021-12-25 16:15:00 16.00 /min BP Systolic 2021-12-21 08:31:00 119 mm[Hg] BP Diastolic 2021-12-21 08:31:00 79 mm[Hg] Weight Measured 2021-12-21 08:31:00 260.60 pounds Height Measured 2021-12-21 08:31:00 65.00 inches Body Temperature 2021-12-21 08:31:00 98.10 degrees Heart Rate 2021-12-21 08:31:00 101.00 /min Respiratory Rate 2021-12-21 08:31:00 18.00 /min BP Systolic 2021-12-13 10:38:00 112 mm[Hg] BP Diastolic 2021-12-13 10:38:00 73 mm[Hg] Weight Measured 2021-12-13 10:38:00 260.60 pounds Height Measured 2021-12-13 10:38:00 65.00 inches Body Temperature 2021-12-13 10:38:00 97.80 degrees Heart Rate 2021-12-13 10:38:00 92.00 /min Respiratory Rate 2021-12-13 10:38:00 17.00 /min BP Systolic 2021-11-30 09:19:00 141 mm[Hg] BP Diastolic 2021-11-30 09:19:00 93 mm[Hg] Weight Measured 2021-11-30 09:19:00 259.20 pounds Height Measured 2021-11-30 09:19:00 65.00 inches Body Temperature 2021-11-30 09:19:00 98.40 degrees Heart Rate 2021-11-30 09:19:00 106.00 /min Respiratory Rate 2021-11-30 09:19:00 16.00 /min BP Systolic 2021-11-21 10:25:00 136 mm[Hg] BP Diastolic 2021-11-21 10:25:00 83 mm[Hg] Weight Measured 2021-11-21 10:25:00 258.40 pounds Height Measured 2021-11-21 10:25:00 65.00 inches Body Temperature 2021-11-21 10:25:00 98.40 degrees Heart Rate 2021-11-21 10:25:00 97.00 /min Respiratory Rate 2021-11-21 10:25:00 16.00 /min Procedures This patient has no known procedures. Plan of Care Planned Activity Planned Date Details Comments Source Goal Plan of Care Note [code = 94321-5] Goal Plan of Care Note [code = 66745-1] Goal Plan of Care Note [code = 48889-4] Goal Plan of Care Note [code = 19486-0] Goal Plan of Care Note [code = 63993-4] Goal Plan of Care Note [code = 32473-6] Goal Plan of Care Note [code = 23842-4] Goal Plan of Care Note [code = 66442-0] Goal Plan of Care Note [code = 18984-9] Goal Plan of Care Note [code = 38794-6] Goal Plan of Care Note [code = 47209-0] Goal Plan of Care Note [code = 96530-7] Goal Plan of Care Note [code = 10043-5] Goal Plan of Care Note [code = 29624-3] Goal Plan of Care Note [code = 67183-3] Goal Plan of Care Note [code = 98664-5] Goal Plan of Care Note [code = 15600-3] Goal Plan of Care Note [code = 05295-1] Goal Plan of Care Note [code = 98323-6] Goal Plan of Care Note [code = 27645-5] Goal Plan of Care Note [code = 37403-6] Goal Plan of Care Note [code = 92228-2] Goal Plan of Care Note [code = 87397-6] Goal Plan of Care Note [code = 16412-6] Goal Plan of Care Note [code = 24238-6] Goal Plan of Care Note [code = 89275-7] Goal Plan of Care Note [code = 88786-6] Goal Plan of Care Note [code = 07396-4] Goal Plan of Care Note [code = 66575-9] Goal Plan of Care Note [code = 19111-0] Goal Plan of Care Note [code = 95989-7] Goal Plan of Care Note [code = 35186-7] Goal Plan of Care Note [code = 01087-2] Goal Plan of Care Note [code = 40971-4] Goal Plan of Care Note [code = 47345-0] Goal Plan of Care Note [code = 49521-1] Goal Plan of Care Note [code = 71981-8] Goal Plan of Care Note [code = 22845-7] Goal Plan of Care Note [code = 72178-3] Goal Plan of Care Note [code = 15588-3] Goal Plan of Care Note [code = 31821-6] Goal Plan of Care Note [code = 45553-3] Goal Plan of Care Note [code = 65730-8] Goal Plan of Care Note [code = 21493-7] Goal Plan of Care Note [code = 81901-2] Goal Plan of Care Note [code = 01448-7] Goal Plan of Care Note [code = 25839-3] Goal Plan of Care Note [code = 63416-5] Goal Plan of Care Note [code = 62338-0] Goal Plan of Care Note [code = 12537-1] Goal Plan of Care Note [code = 42198-3] Goal Plan of Care Note [code = 06153-2] Goal Plan of Care Note [code = 93440-9] Goal Plan of Care Note [code = 75505-9] Goal Plan of Care Note [code = 46154-8] Goal Plan of Care Note [code = 28493-8] Goal Plan of Care Note [code = 07855-8] Goal Plan of Care Note [code = 04259-2] Goal Plan of Care Note [code = 95019-0] Goal Plan of Care Note [code = 22944-6] Goal Plan of Care Note [code = 44736-6] Goal Plan of Care Note [code = 53512-3] Goal Plan of Care Note [code = 22194-8] Goal Plan of Care Note [code = 96268-0] Goal Plan of Care Note [code = 53140-4] Goal Plan of Care Note [code = 38127-9] Goal Plan of Care Note [code = 44193-1] Goal Plan of Care Note [code = 37469-7] Goal Plan of Care Note [code = 07940-7] Goal Plan of Care Note [code = 72756-1] Goal Plan of Care Note [code = 35226-5] Goal Plan of Care Note [code = 01812-8] Goal Plan of Care Note [code = 39683-8] Goal Plan of Care Note [code = 69846-6] Goal Plan of Care Note [code = 65100-8] Goal Plan of Care Note [code = 39895-7] Goal Plan of Care Note [code = 83476-5] Goal Plan of Care Note [code = 41722-5] Goal Plan of Care Note [code = 04569-4] Goal Plan of Care Note [code = 26888-3] Goal Plan of Care Note [code = 96941-5] Goal Plan of Care Note [code = 33107-8] Goal Plan of Care Note [code = 75558-6] Goal Plan of Care Note [code = 08681-9] Goal Plan of Care Note [code = 29611-8] Goal Plan of Care Note [code = 98776-3] Goal Plan of Care Note [code = 55401-5] Goal Plan of Care Note [code = 71513-5] Goal Plan of Care Note [code = 91723-6] Goal Plan of Care Note [code = 25175-1] Goal Plan of Care Note [code = 28390-0] Goal Plan of Care Note [code = 20569-3] Goal Plan of Care Note [code = 93535-2] Goal Plan of Care Note [code = 90704-6] Goal Plan of Care Note [code = 27846-3] Goal Plan of Care Note [code = 07531-9] Goal Plan of Care Note [code = 96153-3] Goal Plan of Care Note [code = 55068-3] Goal Plan of Care Note [code = 70617-4] Goal Plan of Care Note [code = 27211-1] Goal Plan of Care Note [code = 97811-7] Goal Plan of Care Note [code = 93358-6] Goal Plan of Care Note [code = 73340-7] Goal Plan of Care Note [code = 16143-4] Goal Plan of Care Note [code = 82485-8] Goal Plan of Care Note [code = 51529-9] Goal Plan of Care Note [code = 05529-4] Goal Plan of Care Note [code = 86359-4] Goal Plan of Care Note [code = 26291-1] Goal Plan of Care Note [code = 76741-3] Goal Plan of Care Note [code = 33418-5] Goal Plan of Care Note [code = 15350-8] Goal Plan of Care Note [code = 97039-2] Goal Plan of Care Note [code = 07305-7] Goal Plan of Care Note [code = 70469-2] Encounters Start End Encounter Admission Attending Care Care Encounter Source Date/Time Date/Time Type Type Clinicians Facility Department ID 2022-11-05 2022-11-05 Outpatient [facility] JULIEN [id number] Teod[place] 09:27:51 09:27:51 1206 F Pepe 2022-10-22 2022-10-22 Outpatient [id number] 00:00:00 00:00:00 Visit 22q0-2t53 3w6-2v64-e -d5ws-m8b 1cf-d5befc [id number] 1764-10-19 2022-09-18 Outpatient [facility] JULEIN [id number] 022 Te[place] 13:33:28 13:33:28 1019 F Pepe 2022-09-18 2022-09-18 Outpatient [id number] 00:00:00 00:00:00 Visit ey26-9514 k33-3116-5 -0n31-06v w77-26r05w 99e160rj8 742fe8 2022-09-11 2022-09-11 Outpatient [facility] [id number] 022 Teodoro 08:12:03 08:12:03 1012 F Pepe 2022-09-11 2022-09-11 Outpatient [id number] 00:00:00 00:00:00 Visit g35f-5427 60b-4683-a -qf8t-o40 p2c-r85mj3 ug95cqvd1 8ffaa0 2022-07-03 2022-07-03 Outpatient [id number] 00:00:00 00:00:00 Visit 48dc-4dde 8dc-4dde-b -x722-291 704-2709fa 8nx1129yd 1093be 2022-06-26 2022-06-26 Outpatient [id number] 00:00:00 00:00:00 Visit o7n6-65vf 5u4-91wp-3 -1s3e-470 c3o-193y77 [id number] Results Test Description Test Time Test Comments Results Result Comments Source VITAMIN B-12 2022-09-12 06:51:56 Test Item Value Reference Range Interpretation Comme nts VITAMIN B-12 (test code = 2840) 251 PG/ML 200-950 PSA, [id number] 06:51:56 Test Item Value Reference Range Interpretation Comments PSA, TOTAL 0.16 NG/ML See_Comment NOTE: Methodol ogy is Macho (test code = Charity Electroch emiluminescence 1266) Immunoassay tra ceable to WHO reference stand radha 96/760. [Automated mess age] The system which generated this result transmitted ref erence range: <=4.00. The ref erence range was not used to int erpret this result as meri l/abnormal. VITAMIN D, 25 [id number] 04:30:48 Test Item Value Reference Range Interpretation Comments VITAMIN D, 25 OH 29 NG/ML SEE BELOW L NOTE: 25-H YDROXYVITAMIN D (test code = 4958) ASSAY INC LUDES 25-HYDROXYVITAM IN D2 AND D3. METHODOLOGY IS CHEMILUMINESCEN T IMMUNOASSAY. INTERPRETIVE RA NGES PEDIATRIC (<17 YEARS) . . . . . . . . . . . NG/ML 20-100ADULT: IN SUFFICIENT . . . . . . . . . . . . . . NG/ML <20 SUBOP TIMAL . . . . . . . . . . . . . . . NG/ML 20-29 OPT IMAL . . . . . . . . . . . . . . . . . NG/ML 30-100 [id number] 03:39:41 Test Item Value Reference Range Interpretation Comments TESTOSTERONE (test 139 NG/DL 300-890 L UNLESS O THERWISE code = 2830) INDICATED, ALL TESTING PERFORMED [facility], [facility]. [address] [place] [id number] [place] [address] STEVEN DIRECTOR: YESSI SHETH M.D. CLIA NUMBER [id number] CAP ACCREDITATION N O. [id number] HEMOGLOBIN [id number] 03:22:32 Test Item Value Reference Range Interpretation Comments HEMOGLOBIN A1c (test 6.7 % 4.2-5.6 H AMERIC AN DIABETES code = 69640) ASSOCIATION IDELINES FOR HGB A1C: PREDIABETES/INC REASED RISK . . . . . . . 5.7 -6.4% DIAGNOSIS OF DI ABETES . . . . . . . . . >=6 .5% WITH CONFIRMATION OR APPROPRIATE SYMPTOMS NOTE: ASSAY MAY BE AFFECTED BY HEMOGLOBINOPATH IES (SICKLE CELL ANEMIA, S- C DISEASE, OTHERS) OR ROSSY FICIALLY LOWERED BY DECR EASED RED CELL SURVIVAL ( HEMOLYTIC ANEMIAS, BLOOD LOSS, ETC.). CONSIDER ALTERN ATE TESTING OR LABORATORY C ONSULTATION. CBC W/AUTO DIFF WITH [id number] 03:14:49 Test Item Value Reference Range Interpretation Comments WBC (test code = 5.6 K/UL 3.5-11.0 1001) RBC (test code = 5.31 M/UL 4.50-6.10 1002) HEMOGLOBIN (test code 13.6 G/DL 13.5-17.0 = 1003) HEMATOCRIT (test code 40.8 % 40.0-51.0 = 1004) MCV (test code = 76.8 fL 80.0-99.0 L 1005) MCH (test code = 25.6 PG 25.0-33.0 1006) MCHC (test code = 33.3 G/DL 31.0-36.0 1007) RDW (test code = 15.7 % 11.5-15.0 H 1038) NEUTROPHILS (test 59.9 % code = 1008) LYMPHOCYTES (test 28.1 % code = 1010) MONOCYTES (test code 8.1 % = 1011) EOSINOPHILS (test 3.0 % code = 1012) BASOPHILS (test code 0.5 % = 1013) IMMATURE GRANULOCYTES 0.4 % (test code = 1036) NUCLEATED RBCS (test 0.0 /100 WBC'S See_Comment [Aut omated code = 1065) message] The sy stem which generated this result transmitted reference range : 0.0. The refere nce range was not u sed to interpret th is result as normal/abnormal . PLATELET COUNT (test 192 K/UL 130-400 code = 1015) ABSOLUTE NEUTROPHILS 3.35 K/UL 1.50-7.50 (test code = 1066) ABSOLUTE LYMPHOCYTES 1.57 K/UL 1.00-4.00 (test code = 1067) ABSOLUTE MONOCYTES 0.45 K/UL 0.20-1.00 (test code = 1068) ABSOLUTE EOSINOPHILS 0.17 K/UL 0.00-0.50 (test code = 1040) ABSOLUTE BASOPHILS 0.03 K/UL 0.00-0.20 (test code = 1069) ABS IMMATURE 0.02 K/UL 0.00-0.10 GRANULOCYTES (test code = 1020) ABS NUCLEATED RBCS 0.00 K/UL 0.00-0.11 (test code = 48481) COMPREHENSIVE METABOLIC [id number] 02:51:11 Test Item Value Reference Range Interpretation Comments GLUCOSE (test code = 154 MG/DL 70-99 H 2216) BUN (test code = 11 MG/DL 6-20 2207) CREATININE (test 0.64 MG/DL 0.80-1.40 L code = 2213) eGFR (2020 CKD-EPI) 115 >60 (test code = 14982) ML/MIN/1.73 CALC BUN/CREAT (test 17 RATIO 6-28 code = 223) SODIUM (test code = 143 MEQ/L 881-244 1797) POTASSIUM (test code 4.2 MEQ/L 3.5-5.4 = 2227) CHLORIDE (test code 108 MEQ/L 95-107 H = 2214) CARBON DIOXIDE (test 21 MEQ/L 19-31 code = 2205) CALCIUM (test code = 8.9 MG/DL 8.5-10.5 2208) PROTEIN, TOTAL (test 6.9 G/DL 6.1-8.3 code = 222) ALBUMIN (test code = 4.6 G/DL 3.5-5.2 2200) CALC GLOBULIN (test 2.3 G/DL 1.9-3.7 code = 2240) CALC A/G RATIO (test 2.0 RATIO 1.0-2.6 code = 2234) BILIRUBIN, TOTAL 0.3 MG/DL See_Comment [Automated message] (test code = 2206) The syste m which generated this result transmit uzma reference range : <=1.2. The refe rence range was not u sed to interpret th is result as normal/abnormal . ALKALINE PHOSPHATASE 97 U/L 40-121 (test code = 2203) AST (test code = 10 U/L 9-50 2217) ALT (test code = 18 U/L 2218) LIPID [id number] 02:51:11 Test Item Value Reference Range Interpretation Comments CHOLESTEROL (test 123 MG/DL <200 code = 2210) TRIGLYCERIDES (test 141 MG/DL <150 code = 2232) HDL CHOLESTEROL (test 33 MG/DL >39 L code = 2220) CALC LDL CHOL (test 68 MG/DL <100 NOTE: C ALCULATED LDL code = 2237) IS BASED ON MIHAI-GONSALVES METHOD WHICHINCLUDES ADJUSTABLE TRIGLYCERIDE:VL DL CHOLESTEROL RAT IO.THIS FACTOR VARIES B Y MEASURED TRIGLY CERIDE AND NON-HDLCHOL ESTEROL CONCENTRATIONS WITH INCREASED CALCU LATED LDL SEENIN HIGH ER TRIGLYCERIDE OR LOWER NON-HDL SPECIME NS. FOR MOREINFORMATION , SEE CLIENT ANNOUNCE MENT AT [email or web address] RATIO LDL/HDL 2.06 RATIO <3.55 (test code = 2238) HEMOGLOBIN [id number] 00:00:00 Test Item Value Reference Range Interpretation Comments HEMOGLOBIN A1c (test code = 85359) 6.7 % HEMOGLOBIN [id number] 00:00:00 Test Item Value Reference Range Interpretation Comments HEMOGLOBIN A1c (test code = 60364) 6.7 % HEMOGLOBIN [id number] 00:00:00 Test Item Value Reference Range Interpretation Comments HEMOGLOBIN A1c (test code = 78360) 6.7 % CBC W/AUTO [id number] 00:00:00 Test Item Value Reference Range Interpretation Comments WBC (test code = 1001) 5.6 K/UL RBC (test code = 1002) 5.31 M/UL HEMOGLOBIN (test code = 1003) 13.6 G/DL HEMATOCRIT (test code = 1004) 40.8 % MCV (test code = 1005) 76.8 fL MCH (test code = 1006) 25.6 PG MCHC (test code = 1007) 33.3 G/DL RDW (test code = 1038) 15.7 % NEUTROPHILS (test code = 1008) 59.9 % LYMPHOCYTES (test code = 1010) 28.1 % MONOCYTES (test code = 1011) 8.1 % EOSINOPHILS (test code = 1012) 3.0 % BASOPHILS (test code = 1013) 0.5 % IMMATURE GRANULOCYTES (test 0.4 % code = 1036) NUCLEATED RBCS (test code = 0.0 /100WBC'S 1065) PLATELET COUNT (test code = 192 K/UL 1015) ABSOLUTE NEUTROPHILS (test code 3.35 K/UL = 1066) ABSOLUTE LYMPHOCYTES (test code 1.57 K/UL = 1067) ABSOLUTE MONOCYTES (test code = 0.45 K/UL 1068) ABSOLUTE EOSINOPHILS (test code 0.17 K/UL = 1040) ABSOLUTE BASOPHILS (test code = 0.03 K/UL 1069) ABS IMMATURE GRANULOCYTES (test 0.02 K/UL code = 1020) ABS NUCLEATED RBCS (test code = 0.00 K/UL 23387) CBC W/AUTO [id number] 00:00:00 Test Item Value Reference Range Interpretation Comments WBC (test code = 1001) 5.6 K/UL RBC (test code = 1002) 5.31 M/UL HEMOGLOBIN (test code = 1003) 13.6 G/DL HEMATOCRIT (test code = 1004) 40.8 % MCV (test code = 1005) 76.8 fL MCH (test code = 1006) 25.6 PG MCHC (test code = 1007) 33.3 G/DL RDW (test code = 1038) 15.7 % NEUTROPHILS (test code = 1008) 59.9 % LYMPHOCYTES (test code = 1010) 28.1 % MONOCYTES (test code = 1011) 8.1 % EOSINOPHILS (test code = 1012) 3.0 % BASOPHILS (test code = 1013) 0.5 % IMMATURE GRANULOCYTES (test 0.4 % code = 1036) NUCLEATED RBCS (test code = 0.0 /100WBC'S 1065) PLATELET COUNT (test code = 192 K/UL 1015) ABSOLUTE NEUTROPHILS (test code 3.35 K/UL = 1066) ABSOLUTE LYMPHOCYTES (test code 1.57 K/UL = 1067) ABSOLUTE MONOCYTES (test code = 0.45 K/UL 1068) ABSOLUTE EOSINOPHILS (test code 0.17 K/UL = 1040) ABSOLUTE BASOPHILS (test code = 0.03 K/UL 1069) ABS IMMATURE GRANULOCYTES (test 0.02 K/UL code = 1020) ABS NUCLEATED RBCS (test code = 0.00 K/UL 20154) CBC W/AUTO [id number] 00:00:00 Test Item Value Reference Range Interpretation Comments WBC (test code = 1001) 5.6 K/UL RBC (test code = 1002) 5.31 M/UL HEMOGLOBIN (test code = 1003) 13.6 G/DL HEMATOCRIT (test code = 1004) 40.8 % MCV (test code = 1005) 76.8 fL MCH (test code = 1006) 25.6 PG MCHC (test code = 1007) 33.3 G/DL RDW (test code = 1038) 15.7 % NEUTROPHILS (test code = 1008) 59.9 % LYMPHOCYTES (test code = 1010) 28.1 % MONOCYTES (test code = 1011) 8.1 % EOSINOPHILS (test code = 1012) 3.0 % BASOPHILS (test code = 1013) 0.5 % IMMATURE GRANULOCYTES (test 0.4 % code = 1036) NUCLEATED RBCS (test code = 0.0 /100WBC'S 1065) PLATELET COUNT (test code = 192 K/UL 1015) ABSOLUTE NEUTROPHILS (test code 3.35 K/UL = 1066) ABSOLUTE LYMPHOCYTES (test code 1.57 K/UL = 1067) ABSOLUTE MONOCYTES (test code = 0.45 K/UL 1068) ABSOLUTE EOSINOPHILS (test code 0.17 K/UL = 1040) ABSOLUTE BASOPHILS (test code = 0.03 K/UL 1069) ABS IMMATURE GRANULOCYTES (test 0.02 K/UL code = 1020) ABS NUCLEATED RBCS (test code = 0.00 K/UL 72259) COMPREHENSIVE METABOLIC [id number] 00:00:00 Test Item Value Reference Range Interpretation Comments GLUCOSE (test code = 2217) 154 MG/DL BUN (test code = 2208) 11 MG/DL CREATININE (test code = 2214) 0.64 MG/DL eGFR (2020 CKD-EPI) (test 115 ML/MIN/1.73 code = 20114) CALC BUN/CREAT (test code = 17 RATIO 2235) SODIUM (test code = 2231) 143 MEQ/L POTASSIUM (test code = 2228) 4.2 MEQ/L CHLORIDE (test code = 2215) 108 MEQ/L CARBON DIOXIDE (test code = 21 MEQ/L 2205) CALCIUM (test code = 2209) 8.9 MG/DL PROTEIN, TOTAL (test code = 6.9 G/DL 2228) ALBUMIN (test code = 2201) 4.6 G/DL CALC GLOBULIN (test code = 2.3 G/DL 2240) CALC A/G RATIO (test code = 2.0 RATIO 2234) BILIRUBIN, TOTAL (test code = 0.3 MG/DL 2206) ALKALINE PHOSPHATASE (test 97 U/L code = 2204) AST (test code = 2218) 10 U/L ALT (test code = 2219) 18 U/L COMPREHENSIVE METABOLIC [id number] 00:00:00 Test Item Value Reference Range Interpretation Comments GLUCOSE (test code = 2217) 154 MG/DL BUN (test code = 2208) 11 MG/DL CREATININE (test code = 2214) 0.64 MG/DL eGFR (2020 CKD-EPI) (test 115 ML/MIN/1.73 code = 80172) CALC BUN/CREAT (test code = 17 RATIO 2235) SODIUM (test code = 2231) 143 MEQ/L POTASSIUM (test code = 2228) 4.2 MEQ/L CHLORIDE (test code = 2215) 108 MEQ/L CARBON DIOXIDE (test code = 21 MEQ/L 2205) CALCIUM (test code = 2209) 8.9 MG/DL PROTEIN, TOTAL (test code = 6.9 G/DL 2228) ALBUMIN (test code = 2201) 4.6 G/DL CALC GLOBULIN (test code = 2.3 G/DL 2240) CALC A/G RATIO (test code = 2.0 RATIO 2234) BILIRUBIN, TOTAL (test code = 0.3 MG/DL 2206) ALKALINE PHOSPHATASE (test 97 U/L code = 2204) AST (test code = 2218) 10 U/L ALT (test code = 2219) 18 U/L LIPID [id number] 00:00:00 Test Item Value Reference Range Interpretation Comments CHOLESTEROL (test code = 2210) 123 MG/DL TRIGLYCERIDES (test code = 2232) 141 MG/DL HDL CHOLESTEROL (test code = 2220) 33 MG/DL CALC LDL CHOL (test code = 2237) 68 MG/DL RISK RATIO LDL/HDL (test code = 2.06 RATIO 2238) LIPID [id number] 00:00:00 Test Item Value Reference Range Interpretation Comments CHOLESTEROL (test code = 2210) 123 MG/DL TRIGLYCERIDES (test code = 2232) 141 MG/DL HDL CHOLESTEROL (test code = 2220) 33 MG/DL CALC LDL CHOL (test code = 2237) 68 MG/DL RISK RATIO LDL/HDL (test code = 2.06 RATIO 2238) VITAMIN D, 25 [id number] 00:00:00 Test Item Value Reference Range Interpretation Comments VITAMIN D, 25 OH (test code = 4958) 29 NG/ML VITAMIN D, 25 [id number] 00:00:00 Test Item Value Reference Range Interpretation Comments VITAMIN D, 25 OH (test code = 4958) 29 NG/ML VITAMIN [id number] 00:00:00 Test Item Value Reference Range Interpretation Comments VITAMIN B-12 (test code = 2840) 251 PG/ML VITAMIN [id number] 00:00:00 Test Item Value Reference Range Interpretation Comments VITAMIN B-12 (test code = 2840) 251 PG/ML VITAMIN [id number] 00:00:00 Test Item Value Reference Range Interpretation Comments VITAMIN B-12 (test code = 2840) 251 PG/ML PSA, [id number] 00:00:00 Test Item Value Reference Range Interpretation Comments PSA, TOTAL (test code = 2606) 0.16 NG/ML PSA, [id number] 00:00:00 Test Item Value Reference Range Interpretation Comments PSA, TOTAL (test code = 2606) 0.16 NG/ML PSA, [id number] 00:00:00 Test Item Value Reference Range Interpretation Comments PSA, TOTAL (test code = 2606) 0.16 NG/ML [id number] 00:00:00 Test Item Value Reference Range Interpretation Comments TESTOSTERONE (test code = 2830) 139 NG/DL [id number] 00:00:00 Test Item Value Reference Range Interpretation Comments TESTOSTERONE (test code = 2830) 139 NG/DL HEMOGLOBIN [id number] 00:00:00 Test Item Value Reference Range Interpretation Comments HEMOGLOBIN A1c (test code = 85321) 6.7 % HEMOGLOBIN [id number] 00:00:00 Test Item Value Reference Range Interpretation Comments HEMOGLOBIN A1c (test code = 70899) 6.7 % HEMOGLOBIN [id number] 00:00:00 Test Item Value Reference Range Interpretation Comments HEMOGLOBIN A1c (test code = 89868) 6.7 % CBC W/AUTO [id number] 00:00:00 Test Item Value Reference Range Interpretation Comments WBC (test code = 1001) 5.6 K/UL RBC (test code = 1002) 5.31 M/UL HEMOGLOBIN (test code = 1003) 13.6 G/DL HEMATOCRIT (test code = 1004) 40.8 % MCV (test code = 1005) 76.8 fL MCH (test code = 1006) 25.6 PG MCHC (test code = 1007) 33.3 G/DL RDW (test code = 1038) 15.7 % NEUTROPHILS (test code = 1008) 59.9 % LYMPHOCYTES (test code = 1010) 28.1 % MONOCYTES (test code = 1011) 8.1 % EOSINOPHILS (test code = 1012) 3.0 % BASOPHILS (test code = 1013) 0.5 % IMMATURE GRANULOCYTES (test 0.4 % code = 1036) NUCLEATED RBCS (test code = 0.0 /100WBC'S 1065) PLATELET COUNT (test code = 192 K/UL 1015) ABSOLUTE NEUTROPHILS (test code 3.35 K/UL = 1066) ABSOLUTE LYMPHOCYTES (test code 1.57 K/UL = 1067) ABSOLUTE MONOCYTES (test code = 0.45 K/UL 1068) ABSOLUTE EOSINOPHILS (test code 0.17 K/UL = 1040) ABSOLUTE BASOPHILS (test code = 0.03 K/UL 1069) ABS IMMATURE GRANULOCYTES (test 0.02 K/UL code = 1020) ABS NUCLEATED RBCS (test code = 0.00 K/UL 95779) CBC W/AUTO [id number] 00:00:00 Test Item Value Reference Range Interpretation Comments WBC (test code = 1001) 5.6 K/UL RBC (test code = 1002) 5.31 M/UL HEMOGLOBIN (test code = 1003) 13.6 G/DL HEMATOCRIT (test code = 1004) 40.8 % MCV (test code = 1005) 76.8 fL MCH (test code = 1006) 25.6 PG MCHC (test code = 1007) 33.3 G/DL RDW (test code = 1038) 15.7 % NEUTROPHILS (test code = 1008) 59.9 % LYMPHOCYTES (test code = 1010) 28.1 % MONOCYTES (test code = 1011) 8.1 % EOSINOPHILS (test code = 1012) 3.0 % BASOPHILS (test code = 1013) 0.5 % IMMATURE GRANULOCYTES (test 0.4 % code = 1036) NUCLEATED RBCS (test code = 0.0 /100WBC'S 1065) PLATELET COUNT (test code = 192 K/UL 1015) ABSOLUTE NEUTROPHILS (test code 3.35 K/UL = 1066) ABSOLUTE LYMPHOCYTES (test code 1.57 K/UL = 1067) ABSOLUTE MONOCYTES (test code = 0.45 K/UL 1068) ABSOLUTE EOSINOPHILS (test code 0.17 K/UL = 1040) ABSOLUTE BASOPHILS (test code = 0.03 K/UL 1069) ABS IMMATURE GRANULOCYTES (test 0.02 K/UL code = 1020) ABS NUCLEATED RBCS (test code = 0.00 K/UL 94448) CBC W/AUTO [id number] 00:00:00 Test Item Value Reference Range Interpretation Comments WBC (test code = 1001) 5.6 K/UL RBC (test code = 1002) 5.31 M/UL HEMOGLOBIN (test code = 1003) 13.6 G/DL HEMATOCRIT (test code = 1004) 40.8 % MCV (test code = 1005) 76.8 fL MCH (test code = 1006) 25.6 PG MCHC (test code = 1007) 33.3 G/DL RDW (test code = 1038) 15.7 % NEUTROPHILS (test code = 1008) 59.9 % LYMPHOCYTES (test code = 1010) 28.1 % MONOCYTES (test code = 1011) 8.1 % EOSINOPHILS (test code = 1012) 3.0 % BASOPHILS (test code = 1013) 0.5 % IMMATURE GRANULOCYTES (test 0.4 % code = 1036) NUCLEATED RBCS (test code = 0.0 /100WBC'S 1065) PLATELET COUNT (test code = 192 K/UL 1015) ABSOLUTE NEUTROPHILS (test code 3.35 K/UL = 1066) ABSOLUTE LYMPHOCYTES (test code 1.57 K/UL = 1067) ABSOLUTE MONOCYTES (test code = 0.45 K/UL 1068) ABSOLUTE EOSINOPHILS (test code 0.17 K/UL = 1040) ABSOLUTE BASOPHILS (test code = 0.03 K/UL 1069) ABS IMMATURE GRANULOCYTES (test 0.02 K/UL code = 1020) ABS NUCLEATED RBCS (test code = 0.00 K/UL 97219) COMPREHENSIVE METABOLIC [id number] 00:00:00 Test Item Value Reference Range Interpretation Comments GLUCOSE (test code = 2217) 154 MG/DL BUN (test code = 2208) 11 MG/DL CREATININE (test code = 2214) 0.64 MG/DL eGFR (2020 CKD-EPI) (test 115 ML/MIN/1.73 code = 95203) CALC BUN/CREAT (test code = 17 RATIO 2235) SODIUM (test code = 2231) 143 MEQ/L POTASSIUM (test code = 2228) 4.2 MEQ/L CHLORIDE (test code = 2215) 108 MEQ/L CARBON DIOXIDE (test code = 21 MEQ/L 220) CALCIUM (test code = 2209) 8.9 MG/DL PROTEIN, TOTAL (test code = 6.9 G/DL 2228) ALBUMIN (test code = 2201) 4.6 G/DL CALC GLOBULIN (test code = 2.3 G/DL 2240) CALC A/G RATIO (test code = 2.0 RATIO 2234) BILIRUBIN, TOTAL (test code = 0.3 MG/DL 2206) ALKALINE PHOSPHATASE (test 97 U/L code = 2204) AST (test code = 2218) 10 U/L ALT (test code = 2219) 18 U/L COMPREHENSIVE METABOLIC [id number] 00:00:00 Test Item Value Reference Range Interpretation Comments GLUCOSE (test code = 2217) 154 MG/DL BUN (test code = 2208) 11 MG/DL CREATININE (test code = 2214) 0.64 MG/DL eGFR (2020 CKD-EPI) (test 115 ML/MIN/1.73 code = 87399) CALC BUN/CREAT (test code = 17 RATIO 2235) SODIUM (test code = 2231) 143 MEQ/L POTASSIUM (test code = 2228) 4.2 MEQ/L CHLORIDE (test code = 2215) 108 MEQ/L CARBON DIOXIDE (test code = 21 MEQ/L 220) CALCIUM (test code = 2209) 8.9 MG/DL PROTEIN, TOTAL (test code = 6.9 G/DL 2228) ALBUMIN (test code = 2201) 4.6 G/DL CALC GLOBULIN (test code = 2.3 G/DL 2240) CALC A/G RATIO (test code = 2.0 RATIO 2234) BILIRUBIN, TOTAL (test code = 0.3 MG/DL 2206) ALKALINE PHOSPHATASE (test 97 U/L code = 2204) AST (test code = 2218) 10 U/L ALT (test code = 2219) 18 U/L LIPID [id number] 00:00:00 Test Item Value Reference Range Interpretation Comments CHOLESTEROL (test code = 2210) 123 MG/DL TRIGLYCERIDES (test code = 2232) 141 MG/DL HDL CHOLESTEROL (test code = 2220) 33 MG/DL CALC LDL CHOL (test code = 2237) 68 MG/DL RISK RATIO LDL/HDL (test code = 2.06 RATIO 2238) LIPID [id number] 00:00:00 Test Item Value Reference Range Interpretation Comments CHOLESTEROL (test code = 2210) 123 MG/DL TRIGLYCERIDES (test code = 2232) 141 MG/DL HDL CHOLESTEROL (test code = 2220) 33 MG/DL CALC LDL CHOL (test code = 2237) 68 MG/DL RISK RATIO LDL/HDL (test code = 2.06 RATIO 2238) VITAMIN D, 25 [id number] 00:00:00 Test Item Value Reference Range Interpretation Comments VITAMIN D, 25 OH (test code = 4958) 29 NG/ML VITAMIN D, 25 [id number] 00:00:00 Test Item Value Reference Range Interpretation Comments VITAMIN D, 25 OH (test code = 4958) 29 NG/ML VITAMIN [id number] 00:00:00 Test Item Value Reference Range Interpretation Comments VITAMIN B-12 (test code = 2840) 251 PG/ML VITAMIN [id number] 00:00:00 Test Item Value Reference Range Interpretation Comments VITAMIN B-12 (test code = 2840) 251 PG/ML VITAMIN [id number] 00:00:00 Test Item Value Reference Range Interpretation Comments VITAMIN B-12 (test code = 2840) 251 PG/ML PSA, [id number] 00:00:00 Test Item Value Reference Range Interpretation Comments PSA, TOTAL (test code = 2606) 0.16 NG/ML PSA, [id number] 00:00:00 Test Item Value Reference Range Interpretation Comments PSA, TOTAL (test code = 2606) 0.16 NG/ML PSA, [id number] 00:00:00 Test Item Value Reference Range Interpretation Comments PSA, TOTAL (test code = 2606) 0.16 NG/ML [id number] 00:00:00 Test Item Value Reference Range Interpretation Comments TESTOSTERONE (test code = 2830) 139 NG/DL [id number] 00:00:00 Test Item Value Reference Range Interpretation Comments TESTOSTERONE (test code = 2830) 139 NG/DL CBC W/AUTO DIFF WITH [id number] 03:58:26 Test Item Value Reference Range Interpretation Comments WBC (test code = 7.3 K/UL 3.5-11.0 1001) RBC (test code = 5.40 M/UL 4.50-6.10 1002) HEMOGLOBIN (test code 14.4 G/DL 13.5-17.0 = 1003) HEMATOCRIT (test code 41.7 % 40.0-51.0 = 1004) MCV (test code = 77.2 fL 80.0-99.0 L 1005) MCH (test code = 26.7 PG 25.0-33.0 1006) MCHC (test code = 34.5 G/DL 31.0-36.0 1007) RDW (test code = 15.3 % 11.5-15.0 H 1038) NEUTROPHILS (test 64.3 % code = 1008) LYMPHOCYTES (test 25.5 % code = 1010) MONOCYTES (test code 7.8 % = 1011) EOSINOPHILS (test 1.5 % code = 1012) BASOPHILS (test code 0.5 % = 1013) IMMATURE GRANULOCYTES 0.4 % (test code = 1036) NUCLEATED RBCS (test 0.0 /100 WBC'S See_Comment [Aut omated code = 1065) message] The sy stem which generated this result transmitted reference range : 0.0. The refere nce range was not u sed to interpret th is result as normal/abnormal . PLATELET COUNT (test 194 K/UL 130-400 code = 1015) ABSOLUTE NEUTROPHILS 4.70 K/UL 1.50-7.50 (test code = 1066) ABSOLUTE LYMPHOCYTES 1.87 K/UL 1.00-4.00 (test code = 1067) ABSOLUTE MONOCYTES 0.57 K/UL 0.20-1.00 (test code = 1068) ABSOLUTE EOSINOPHILS 0.11 K/UL 0.00-0.50 (test code = 1040) ABSOLUTE BASOPHILS 0.04 K/UL 0.00-0.20 (test code = 1069) ABS IMMATURE 0.03 K/UL 0.00-0.10 GRANULOCYTES (test code = 1020) ABS NUCLEATED RBCS 0.00 K/UL 0.00-0.11 (test code = 14421) COMPREHENSIVE METABOLIC [id number] 03:12:28 Test Item Value Reference Range Interpretation Comments GLUCOSE (test code = 141 MG/DL 70-99 H 2216) BUN (test code = 11 MG/DL 6-20 2207) CREATININE (test 0.78 MG/DL 0.80-1.40 L code = 221) eGFR (2020 CKD-EPI) 108 >60 (test code = 00578) ML/MIN/1.73 CALC BUN/CREAT (test 14 RATIO 6-28 code = 2235) SODIUM (test code = 141 MEQ/L 219-640 4769) POTASSIUM (test code 4.7 MEQ/L 3.5-5.4 = 2227) CHLORIDE (test code 100 MEQ/L 95-107 = 2214) CARBON DIOXIDE (test 27 MEQ/L 19-31 code = 220) CALCIUM (test code = 9.7 MG/DL 8.5-10.5 2208) PROTEIN, TOTAL (test 6.8 G/DL 6.1-8.3 code = 2229) ALBUMIN (test code = 4.8 G/DL 3.5-5.2 2200) CALC GLOBULIN (test 2.0 G/DL 1.9-3.7 code = 2240) CALC A/G RATIO (test 2.4 RATIO 1.0-2.6 code = 2234) BILIRUBIN, TOTAL 0.5 MG/DL See_Comment [Automated message] (test code = 2207) The syste m which generated this result transmit uzma reference range : <=1.2. The refe rence range was not u sed to interpret th is result as normal/abnormal . ALKALINE PHOSPHATASE 93 U/L 40-121 (test code = 2204) AST (test code = 17 U/L 9-50 2217) ALT (test code = 23 U/L 5-50 2218) [id number] 02:56:26 Test Item Value Reference Range Interpretation Comments AMYLASE (test code = 2205) 32 U/L 28-100 [id number] 02:56:26 Test Item Value Reference Range Interpretation Comments LIPASE (test code = 22 U/L 13-60 UNLESS OTHERWISE 2057) INDICATED, ALL TESTING PERFORMED [facility] N[facility] PATHOLOG[facility] [employer], [employer]. [address] [place], [place] [id number] [place] [address] DIRECTOR: YESSI SHETH M.D. [place] NUMBER [id number] CAP ACCREDITATION N O. [id number] CBC W/AUTO DIFF WITH PLATELETS [ADDED]2022-07-04 00:00:00 Test Item Value Reference Range Interpretation Comments WBC (test code = 1001) 7.3 K/UL RBC (test code = 1002) 5.40 M/UL HEMOGLOBIN (test code = 1003) 14.4 G/DL HEMATOCRIT (test code = 1004) 41.7 % MCV (test code = 1005) 77.2 fL MCH (test code = 1006) 26.7 PG MCHC (test code = 1007) 34.5 G/DL RDW (test code = 1038) 15.3 % NEUTROPHILS (test code = 1008) 64.3 % LYMPHOCYTES (test code = 1010) 25.5 % MONOCYTES (test code = 1011) 7.8 % EOSINOPHILS (test code = 1012) 1.5 % BASOPHILS (test code = 1013) 0.5 % IMMATURE GRANULOCYTES (test 0.4 % code = 1036) NUCLEATED RBCS (test code = 0.0 /100WBC'S 1065) PLATELET COUNT (test code = 194 K/UL 1015) ABSOLUTE NEUTROPHILS (test code 4.70 K/UL = 1066) ABSOLUTE LYMPHOCYTES (test code 1.87 K/UL = 1067) ABSOLUTE MONOCYTES (test code = 0.57 K/UL 1068) ABSOLUTE EOSINOPHILS (test code 0.11 K/UL = 1040) ABSOLUTE BASOPHILS (test code = 0.04 K/UL 1069) ABS IMMATURE GRANULOCYTES (test 0.03 K/UL code = 1020) ABS NUCLEATED RBCS (test code = 0.00 K/UL 77981) CBC W/AUTO DIFF WITH PLATELETS [ADDED]2022-07-04 00:00:00 Test Item Value Reference Range Interpretation Comments WBC (test code = 1001) 7.3 K/UL RBC (test code = 1002) 5.40 M/UL HEMOGLOBIN (test code = 1003) 14.4 G/DL HEMATOCRIT (test code = 1004) 41.7 % MCV (test code = 1005) 77.2 fL MCH (test code = 1006) 26.7 PG MCHC (test code = 1007) 34.5 G/DL RDW (test code = 1038) 15.3 % NEUTROPHILS (test code = 1008) 64.3 % LYMPHOCYTES (test code = 1010) 25.5 % MONOCYTES (test code = 1011) 7.8 % EOSINOPHILS (test code = 1012) 1.5 % BASOPHILS (test code = 1013) 0.5 % IMMATURE GRANULOCYTES (test 0.4 % code = 1036) NUCLEATED RBCS (test code = 0.0 /100WBC'S 1065) PLATELET COUNT (test code = 194 K/UL 1015) ABSOLUTE NEUTROPHILS (test code 4.70 K/UL = 1066) ABSOLUTE LYMPHOCYTES (test code 1.87 K/UL = 1067) ABSOLUTE MONOCYTES (test code = 0.57 K/UL 1068) ABSOLUTE EOSINOPHILS (test code 0.11 K/UL = 1040) ABSOLUTE BASOPHILS (test code = 0.04 K/UL 1069) ABS IMMATURE GRANULOCYTES (test 0.03 K/UL code = 1020) ABS NUCLEATED RBCS (test code = 0.00 K/UL 00907) CBC W/AUTO DIFF WITH PLATELETS [ADDED]2022-07-04 00:00:00 Test Item Value Reference Range Interpretation Comments WBC (test code = 1001) 7.3 K/UL RBC (test code = 1002) 5.40 M/UL HEMOGLOBIN (test code = 1003) 14.4 G/DL HEMATOCRIT (test code = 1004) 41.7 % MCV (test code = 1005) 77.2 fL MCH (test code = 1006) 26.7 PG MCHC (test code = 1007) 34.5 G/DL RDW (test code = 1038) 15.3 % NEUTROPHILS (test code = 1008) 64.3 % LYMPHOCYTES (test code = 1010) 25.5 % MONOCYTES (test code = 1011) 7.8 % EOSINOPHILS (test code = 1012) 1.5 % BASOPHILS (test code = 1013) 0.5 % IMMATURE GRANULOCYTES (test 0.4 % code = 1036) NUCLEATED RBCS (test code = 0.0 /100WBC'S 1065) PLATELET COUNT (test code = 194 K/UL 1015) ABSOLUTE NEUTROPHILS (test code 4.70 K/UL = 1066) ABSOLUTE LYMPHOCYTES (test code 1.87 K/UL = 1067) ABSOLUTE MONOCYTES (test code = 0.57 K/UL 1068) ABSOLUTE EOSINOPHILS (test code 0.11 K/UL = 1040) ABSOLUTE BASOPHILS (test code = 0.04 K/UL 1069) ABS IMMATURE GRANULOCYTES (test 0.03 K/UL code = 1020) ABS NUCLEATED RBCS (test code = 0.00 K/UL 73001) COMPREHENSIVE METABOLIC PANEL [ADDED]2022-07-04 00:00:00 Test Item Value Reference Range Interpretation Comments GLUCOSE (test code = 2217) 141 MG/DL BUN (test code = 2208) 11 MG/DL CREATININE (test code = 2214) 0.78 MG/DL eGFR (2020 CKD-EPI) (test 108 ML/MIN/1.73 code = 63308) CALC BUN/CREAT (test code = 14 RATIO 2235) SODIUM (test code = 2231) 141 MEQ/L POTASSIUM (test code = 2228) 4.7 MEQ/L CHLORIDE (test code = 2215) 100 MEQ/L CARBON DIOXIDE (test code = 27 MEQ/L 2206) CALCIUM (test code = 2209) 9.7 MG/DL PROTEIN, TOTAL (test code = 6.8 G/DL 2229) ALBUMIN (test code = 2201) 4.8 G/DL CALC GLOBULIN (test code = 2.0 G/DL 2240) CALC A/G RATIO (test code = 2.4 RATIO 2234) BILIRUBIN, TOTAL (test code = 0.5 MG/DL 2207) ALKALINE PHOSPHATASE (test 93 U/L code = 2204) AST (test code = 2218) 17 U/L ALT (test code = 2219) 23 U/L COMPREHENSIVE METABOLIC PANEL [ADDED]2022-07-04 00:00:00 Test Item Value Reference Range Interpretation Comments GLUCOSE (test code = 2217) 141 MG/DL BUN (test code = 2208) 11 MG/DL CREATININE (test code = 2214) 0.78 MG/DL eGFR (2020 CKD-EPI) (test 108 ML/MIN/1.73 code = 31121) CALC BUN/CREAT (test code = 14 RATIO 5) SODIUM (test code = 2231) 141 MEQ/L POTASSIUM (test code = 2228) 4.7 MEQ/L CHLORIDE (test code = 2215) 100 MEQ/L CARBON DIOXIDE (test code = 27 MEQ/L 2205) CALCIUM (test code = 2209) 9.7 MG/DL PROTEIN, TOTAL (test code = 6.8 G/DL 2228) ALBUMIN (test code = 2201) 4.8 G/DL CALC GLOBULIN (test code = 2.0 G/DL 2239) CALC A/G RATIO (test code = 2.4 RATIO 2233) BILIRUBIN, TOTAL (test code = 0.5 MG/DL 2206) ALKALINE PHOSPHATASE (test 93 U/L code = 2204) AST (test code = 2218) 17 U/L ALT (test code = 2219) 23 U/L AMYLASE [ADDED]2022-07-04 00:00:00 Test Item Value Reference Range Interpretation Comments AMYLASE (test code = 2205) 32 U/L AMYLASE [ADDED]2022-07-04 00:00:00 Test Item Value Reference Range Interpretation Comments AMYLASE (test code = 2204) 32 U/L LIPASE [ADDED]2022-07-04 00:00:00 Test Item Value Reference Range Interpretation Comments LIPASE (test code = 2057) 22 U/L LIPASE [ADDED]2022-07-04 00:00:00 Test Item Value Reference Range Interpretation Comments LIPASE (test code = 2057) 22 U/L LIPASE [ADDED]2022-07-04 00:00:00 Test Item Value Reference Range Interpretation Comments LIPASE (test code = 2057) 22 U/L CBC W/AUTO DIFF WITH PLATELETS [ADDED]2022-07-04 00:00:00 Test Item Value Reference Range Interpretation Comments WBC (test code = 1001) 7.3 K/UL RBC (test code = 1002) 5.40 M/UL HEMOGLOBIN (test code = 1003) 14.4 G/DL HEMATOCRIT (test code = 1004) 41.7 % MCV (test code = 1005) 77.2 fL MCH (test code = 1006) 26.7 PG MCHC (test code = 1007) 34.5 G/DL RDW (test code = 1038) 15.3 % NEUTROPHILS (test code = 1008) 64.3 % LYMPHOCYTES (test code = 1010) 25.5 % MONOCYTES (test code = 1011) 7.8 % EOSINOPHILS (test code = 1012) 1.5 % BASOPHILS (test code = 1013) 0.5 % IMMATURE GRANULOCYTES (test 0.4 % code = 1036) NUCLEATED RBCS (test code = 0.0 /100WBC'S 1065) PLATELET COUNT (test code = 194 K/UL 1015) ABSOLUTE NEUTROPHILS (test code 4.70 K/UL = 1066) ABSOLUTE LYMPHOCYTES (test code 1.87 K/UL = 1067) ABSOLUTE MONOCYTES (test code = 0.57 K/UL 1068) ABSOLUTE EOSINOPHILS (test code 0.11 K/UL = 1040) ABSOLUTE BASOPHILS (test code = 0.04 K/UL 1069) ABS IMMATURE GRANULOCYTES (test 0.03 K/UL code = 1020) ABS NUCLEATED RBCS (test code = 0.00 K/UL 56139) CBC W/AUTO DIFF WITH PLATELETS [ADDED]2022-07-04 00:00:00 Test Item Value Reference Range Interpretation Comments WBC (test code = 1001) 7.3 K/UL RBC (test code = 1002) 5.40 M/UL HEMOGLOBIN (test code = 1003) 14.4 G/DL HEMATOCRIT (test code = 1004) 41.7 % MCV (test code = 1005) 77.2 fL MCH (test code = 1006) 26.7 PG MCHC (test code = 1007) 34.5 G/DL RDW (test code = 1038) 15.3 % NEUTROPHILS (test code = 1008) 64.3 % LYMPHOCYTES (test code = 1010) 25.5 % MONOCYTES (test code = 1011) 7.8 % EOSINOPHILS (test code = 1012) 1.5 % BASOPHILS (test code = 1013) 0.5 % IMMATURE GRANULOCYTES (test 0.4 % code = 1036) NUCLEATED RBCS (test code = 0.0 /100WBC'S 1065) PLATELET COUNT (test code = 194 K/UL 1015) ABSOLUTE NEUTROPHILS (test code 4.70 K/UL = 1066) ABSOLUTE LYMPHOCYTES (test code 1.87 K/UL = 1067) ABSOLUTE MONOCYTES (test code = 0.57 K/UL 1068) ABSOLUTE EOSINOPHILS (test code 0.11 K/UL = 1040) ABSOLUTE BASOPHILS (test code = 0.04 K/UL 1069) ABS IMMATURE GRANULOCYTES (test 0.03 K/UL code = 1020) ABS NUCLEATED RBCS (test code = 0.00 K/UL 09970) CBC W/AUTO DIFF WITH PLATELETS [ADDED]2022-07-04 00:00:00 Test Item Value Reference Range Interpretation Comments WBC (test code = 1001) 7.3 K/UL RBC (test code = 1002) 5.40 M/UL HEMOGLOBIN (test code = 1003) 14.4 G/DL HEMATOCRIT (test code = 1004) 41.7 % MCV (test code = 1005) 77.2 fL MCH (test code = 1006) 26.7 PG MCHC (test code = 1007) 34.5 G/DL RDW (test code = 1038) 15.3 % NEUTROPHILS (test code = 1008) 64.3 % LYMPHOCYTES (test code = 1010) 25.5 % MONOCYTES (test code = 1011) 7.8 % EOSINOPHILS (test code = 1012) 1.5 % BASOPHILS (test code = 1013) 0.5 % IMMATURE GRANULOCYTES (test 0.4 % code = 1036) NUCLEATED RBCS (test code = 0.0 /100WBC'S 1065) PLATELET COUNT (test code = 194 K/UL 1015) ABSOLUTE NEUTROPHILS (test code 4.70 K/UL = 1066) ABSOLUTE LYMPHOCYTES (test code 1.87 K/UL = 1067) ABSOLUTE MONOCYTES (test code = 0.57 K/UL 1068) ABSOLUTE EOSINOPHILS (test code 0.11 K/UL = 1040) ABSOLUTE BASOPHILS (test code = 0.04 K/UL 1069) ABS IMMATURE GRANULOCYTES (test 0.03 K/UL code = 1020) ABS NUCLEATED RBCS (test code = 0.00 K/UL 77906) COMPREHENSIVE METABOLIC PANEL [ADDED]2022-07-04 00:00:00 Test Item Value Reference Range Interpretation Comments GLUCOSE (test code = 2217) 141 MG/DL BUN (test code = 2208) 11 MG/DL CREATININE (test code = 2214) 0.78 MG/DL eGFR (2020 CKD-EPI) (test 108 ML/MIN/1.73 code = 42990) CALC BUN/CREAT (test code = 14 RATIO 2235) SODIUM (test code = 2231) 141 MEQ/L POTASSIUM (test code = 2228) 4.7 MEQ/L CHLORIDE (test code = 2215) 100 MEQ/L CARBON DIOXIDE (test code = 27 MEQ/L 2206) CALCIUM (test code = 2209) 9.7 MG/DL PROTEIN, TOTAL (test code = 6.8 G/DL 222) ALBUMIN (test code = 2201) 4.8 G/DL CALC GLOBULIN (test code = 2.0 G/DL 2240) CALC A/G RATIO (test code = 2.4 RATIO 2234) BILIRUBIN, TOTAL (test code = 0.5 MG/DL 2206) ALKALINE PHOSPHATASE (test 93 U/L code = 2204) AST (test code = 2218) 17 U/L ALT (test code = 2219) 23 U/L COMPREHENSIVE METABOLIC PANEL [ADDED]2022-07-04 00:00:00 Test Item Value Reference Range Interpretation Comments GLUCOSE (test code = 2217) 141 MG/DL BUN (test code = 2208) 11 MG/DL CREATININE (test code = 2214) 0.78 MG/DL eGFR (2020 CKD-EPI) (test 108 ML/MIN/1.73 code = 70393) CALC BUN/CREAT (test code = 14 RATIO 2235) SODIUM (test code = 2231) 141 MEQ/L POTASSIUM (test code = 2228) 4.7 MEQ/L CHLORIDE (test code = 2215) 100 MEQ/L CARBON DIOXIDE (test code = 27 MEQ/L 2206) CALCIUM (test code = 2209) 9.7 MG/DL PROTEIN, TOTAL (test code = 6.8 G/DL 2228) ALBUMIN (test code = 2201) 4.8 G/DL CALC GLOBULIN (test code = 2.0 G/DL 2240) CALC A/G RATIO (test code = 2.4 RATIO 2234) BILIRUBIN, TOTAL (test code = 0.5 MG/DL 2206) ALKALINE PHOSPHATASE (test 93 U/L code = 2204) AST (test code = 2218) 17 U/L ALT (test code = 2219) 23 U/L AMYLASE [ADDED]2022-07-04 00:00:00 Test Item Value Reference Range Interpretation Comments AMYLASE (test code = 2205) 32 U/L AMYLASE [ADDED]2022-07-04 00:00:00 Test Item Value Reference Range Interpretation Comments AMYLASE (test code = 2205) 32 U/L LIPASE [ADDED]2022-07-04 00:00:00 Test Item Value Reference Range Interpretation Comments LIPASE (test code = 2057) 22 U/L LIPASE [ADDED]2022-07-04 00:00:00 Test Item Value Reference Range Interpretation Comments LIPASE (test code = 2057) 22 U/L LIPASE [ADDED]2022-07-04 00:00:00 Test Item Value Reference Range Interpretation Comments LIPASE (test code = 2057) 22 U/L CBC W/AUTO DIFF WITH PLATELETS [ADDED]2022-07-04 00:00:00 Test Item Value Reference Range Interpretation Comments WBC (test code = 1001) 7.3 K/UL RBC (test code = 1002) 5.40 M/UL HEMOGLOBIN (test code = 1003) 14.4 G/DL HEMATOCRIT (test code = 1004) 41.7 % MCV (test code = 1005) 77.2 fL MCH (test code = 1006) 26.7 PG MCHC (test code = 1007) 34.5 G/DL RDW (test code = 1038) 15.3 % NEUTROPHILS (test code = 1008) 64.3 % LYMPHOCYTES (test code = 1010) 25.5 % MONOCYTES (test code = 1011) 7.8 % EOSINOPHILS (test code = 1012) 1.5 % BASOPHILS (test code = 1013) 0.5 % IMMATURE GRANULOCYTES (test 0.4 % code = 1036) NUCLEATED RBCS (test code = 0.0 /100WBC'S 1065) PLATELET COUNT (test code = 194 K/UL 1015) ABSOLUTE NEUTROPHILS (test code 4.70 K/UL = 1066) ABSOLUTE LYMPHOCYTES (test code 1.87 K/UL = 1067) ABSOLUTE MONOCYTES (test code = 0.57 K/UL 1068) ABSOLUTE EOSINOPHILS (test code 0.11 K/UL = 1040) ABSOLUTE BASOPHILS (test code = 0.04 K/UL 1069) ABS IMMATURE GRANULOCYTES (test 0.03 K/UL code = 1020) ABS NUCLEATED RBCS (test code = 0.00 K/UL 68875) CBC W/AUTO DIFF WITH PLATELETS [ADDED]2022-07-04 00:00:00 Test Item Value Reference Range Interpretation Comments WBC (test code = 1001) 7.3 K/UL RBC (test code = 1002) 5.40 M/UL HEMOGLOBIN (test code = 1003) 14.4 G/DL HEMATOCRIT (test code = 1004) 41.7 % MCV (test code = 1005) 77.2 fL MCH (test code = 1006) 26.7 PG MCHC (test code = 1007) 34.5 G/DL RDW (test code = 1038) 15.3 % NEUTROPHILS (test code = 1008) 64.3 % LYMPHOCYTES (test code = 1010) 25.5 % MONOCYTES (test code = 1011) 7.8 % EOSINOPHILS (test code = 1012) 1.5 % BASOPHILS (test code = 1013) 0.5 % IMMATURE GRANULOCYTES (test 0.4 % code = 1036) NUCLEATED RBCS (test code = 0.0 /100WBC'S 1065) PLATELET COUNT (test code = 194 K/UL 1015) ABSOLUTE NEUTROPHILS (test code 4.70 K/UL = 1066) ABSOLUTE LYMPHOCYTES (test code 1.87 K/UL = 1067) ABSOLUTE MONOCYTES (test code = 0.57 K/UL 1068) ABSOLUTE EOSINOPHILS (test code 0.11 K/UL = 1040) ABSOLUTE BASOPHILS (test code = 0.04 K/UL 1069) ABS IMMATURE GRANULOCYTES (test 0.03 K/UL code = 1020) ABS NUCLEATED RBCS (test code = 0.00 K/UL 65793) CBC W/AUTO DIFF WITH PLATELETS [ADDED]2022-07-04 00:00:00 Test Item Value Reference Range Interpretation Comments WBC (test code = 1001) 7.3 K/UL RBC (test code = 1002) 5.40 M/UL HEMOGLOBIN (test code = 1003) 14.4 G/DL HEMATOCRIT (test code = 1004) 41.7 % MCV (test code = 1005) 77.2 fL MCH (test code = 1006) 26.7 PG MCHC (test code = 1007) 34.5 G/DL RDW (test code = 1038) 15.3 % NEUTROPHILS (test code = 1008) 64.3 % LYMPHOCYTES (test code = 1010) 25.5 % MONOCYTES (test code = 1011) 7.8 % EOSINOPHILS (test code = 1012) 1.5 % BASOPHILS (test code = 1013) 0.5 % IMMATURE GRANULOCYTES (test 0.4 % code = 1036) NUCLEATED RBCS (test code = 0.0 /100WBC'S 1065) PLATELET COUNT (test code = 194 K/UL 1015) ABSOLUTE NEUTROPHILS (test code 4.70 K/UL = 1066) ABSOLUTE LYMPHOCYTES (test code 1.87 K/UL = 1067) ABSOLUTE MONOCYTES (test code = 0.57 K/UL 1068) ABSOLUTE EOSINOPHILS (test code 0.11 K/UL = 1040) ABSOLUTE BASOPHILS (test code = 0.04 K/UL 1069) ABS IMMATURE GRANULOCYTES (test 0.03 K/UL code = 1020) ABS NUCLEATED RBCS (test code = 0.00 K/UL 24663) COMPREHENSIVE METABOLIC PANEL [ADDED]2022-07-04 00:00:00 Test Item Value Reference Range Interpretation Comments GLUCOSE (test code = 2217) 141 MG/DL BUN (test code = 2208) 11 MG/DL CREATININE (test code = 2214) 0.78 MG/DL eGFR (2020 CKD-EPI) (test 108 ML/MIN/1.73 code = 84954) CALC BUN/CREAT (test code = 14 RATIO 2235) SODIUM (test code = 2231) 141 MEQ/L POTASSIUM (test code = 2228) 4.7 MEQ/L CHLORIDE (test code = 2215) 100 MEQ/L CARBON DIOXIDE (test code = 27 MEQ/L 2206) CALCIUM (test code = 2209) 9.7 MG/DL PROTEIN, TOTAL (test code = 6.8 G/DL 2229) ALBUMIN (test code = 2201) 4.8 G/DL CALC GLOBULIN (test code = 2.0 G/DL 2240) CALC A/G RATIO (test code = 2.4 RATIO 2234) BILIRUBIN, TOTAL (test code = 0.5 MG/DL 2207) ALKALINE PHOSPHATASE (test 93 U/L code = 2204) AST (test code = 2218) 17 U/L ALT (test code = 2219) 23 U/L COMPREHENSIVE METABOLIC PANEL [ADDED]2022-07-04 00:00:00 Test Item Value Reference Range Interpretation Comments GLUCOSE (test code = 2217) 141 MG/DL BUN (test code = 2208) 11 MG/DL CREATININE (test code = 2214) 0.78 MG/DL eGFR (2020 CKD-EPI) (test 108 ML/MIN/1.73 code = 98186) CALC BUN/CREAT (test code = 14 RATIO 2235) SODIUM (test code = 2231) 141 MEQ/L POTASSIUM (test code = 2228) 4.7 MEQ/L CHLORIDE (test code = 2215) 100 MEQ/L CARBON DIOXIDE (test code = 27 MEQ/L 2205) CALCIUM (test code = 2209) 9.7 MG/DL PROTEIN, TOTAL (test code = 6.8 G/DL 2228) ALBUMIN (test code = 2201) 4.8 G/DL CALC GLOBULIN (test code = 2.0 G/DL 2239) CALC A/G RATIO (test code = 2.4 RATIO 2233) BILIRUBIN, TOTAL (test code = 0.5 MG/DL 2206) ALKALINE PHOSPHATASE (test 93 U/L code = 2204) AST (test code = 2218) 17 U/L ALT (test code = 2219) 23 U/L AMYLASE [ADDED]2022-07-04 00:00:00 Test Item Value Reference Range Interpretation Comments AMYLASE (test code = 2205) 32 U/L AMYLASE [ADDED]2022-07-04 00:00:00 Test Item Value Reference Range Interpretation Comments AMYLASE (test code = 2204) 32 U/L LIPASE [ADDED]2022-07-04 00:00:00 Test Item Value Reference Range Interpretation Comments LIPASE (test code = 2057) 22 U/L LIPASE [ADDED]2022-07-04 00:00:00 Test Item Value Reference Range Interpretation Comments LIPASE (test code = 2057) 22 U/L LIPASE [ADDED]2022-07-04 00:00:00 Test Item Value Reference Range Interpretation Comments LIPASE (test code = 2057) 22 U/L CBC W/AUTO DIFF WITH PLATELETS [ADDED]2022-07-04 00:00:00 Test Item Value Reference Range Interpretation Comments WBC (test code = 1001) 7.3 K/UL RBC (test code = 1002) 5.40 M/UL HEMOGLOBIN (test code = 1003) 14.4 G/DL HEMATOCRIT (test code = 1004) 41.7 % MCV (test code = 1005) 77.2 fL MCH (test code = 1006) 26.7 PG MCHC (test code = 1007) 34.5 G/DL RDW (test code = 1038) 15.3 % NEUTROPHILS (test code = 1008) 64.3 % LYMPHOCYTES (test code = 1010) 25.5 % MONOCYTES (test code = 1011) 7.8 % EOSINOPHILS (test code = 1012) 1.5 % BASOPHILS (test code = 1013) 0.5 % IMMATURE GRANULOCYTES (test 0.4 % code = 1036) NUCLEATED RBCS (test code = 0.0 /100WBC'S 1065) PLATELET COUNT (test code = 194 K/UL 1015) ABSOLUTE NEUTROPHILS (test code 4.70 K/UL = 1066) ABSOLUTE LYMPHOCYTES (test code 1.87 K/UL = 1067) ABSOLUTE MONOCYTES (test code = 0.57 K/UL 1068) ABSOLUTE EOSINOPHILS (test code 0.11 K/UL = 1040) ABSOLUTE BASOPHILS (test code = 0.04 K/UL 1069) ABS IMMATURE GRANULOCYTES (test 0.03 K/UL code = 1020) ABS NUCLEATED RBCS (test code = 0.00 K/UL 44956) CBC W/AUTO DIFF WITH PLATELETS [ADDED]2022-07-04 00:00:00 Test Item Value Reference Range Interpretation Comments WBC (test code = 1001) 7.3 K/UL RBC (test code = 1002) 5.40 M/UL HEMOGLOBIN (test code = 1003) 14.4 G/DL HEMATOCRIT (test code = 1004) 41.7 % MCV (test code = 1005) 77.2 fL MCH (test code = 1006) 26.7 PG MCHC (test code = 1007) 34.5 G/DL RDW (test code = 1038) 15.3 % NEUTROPHILS (test code = 1008) 64.3 % LYMPHOCYTES (test code = 1010) 25.5 % MONOCYTES (test code = 1011) 7.8 % EOSINOPHILS (test code = 1012) 1.5 % BASOPHILS (test code = 1013) 0.5 % IMMATURE GRANULOCYTES (test 0.4 % code = 1036) NUCLEATED RBCS (test code = 0.0 /100WBC'S 1065) PLATELET COUNT (test code = 194 K/UL 1015) ABSOLUTE NEUTROPHILS (test code 4.70 K/UL = 1066) ABSOLUTE LYMPHOCYTES (test code 1.87 K/UL = 1067) ABSOLUTE MONOCYTES (test code = 0.57 K/UL 1068) ABSOLUTE EOSINOPHILS (test code 0.11 K/UL = 1040) ABSOLUTE BASOPHILS (test code = 0.04 K/UL 1069) ABS IMMATURE GRANULOCYTES (test 0.03 K/UL code = 1020) ABS NUCLEATED RBCS (test code = 0.00 K/UL 74676) COMPREHENSIVE METABOLIC PANEL [ADDED]2022-07-04 00:00:00 Test Item Value Reference Range Interpretation Comments GLUCOSE (test code = 2217) 141 MG/DL BUN (test code = 2208) 11 MG/DL CREATININE (test code = 2214) 0.78 MG/DL eGFR (2020 CKD-EPI) (test 108 ML/MIN/1.73 code = 86789) CALC BUN/CREAT (test code = 14 RATIO 2235) SODIUM (test code = 2231) 141 MEQ/L POTASSIUM (test code = 2228) 4.7 MEQ/L CHLORIDE (test code = 2215) 100 MEQ/L CARBON DIOXIDE (test code = 27 MEQ/L 2205) CALCIUM (test code = 2209) 9.7 MG/DL PROTEIN, TOTAL (test code = 6.8 G/DL 2228) ALBUMIN (test code = 2201) 4.8 G/DL CALC GLOBULIN (test code = 2.0 G/DL 2240) CALC A/G RATIO (test code = 2.4 RATIO 4) BILIRUBIN, TOTAL (test code = 0.5 MG/DL 2206) ALKALINE PHOSPHATASE (test 93 U/L code = 2204) AST (test code = 2218) 17 U/L ALT (test code = 2219) 23 U/L AMYLASE [ADDED]2022-07-04 00:00:00 Test Item Value Reference Range Interpretation Comments AMYLASE (test code = 2205) 32 U/L LIPASE [ADDED]2022-07-04 00:00:00 Test Item Value Reference Range Interpretation Comments LIPASE (test code = 2057) 22 U/L LIPASE [ADDED]2022-07-04 00:00:00 Test Item Value Reference Range Interpretation Comments LIPASE (test code = 2057) 22 U/L [id number] 06:47:26 Test Item Value Reference Range Interpretation Comments TESTOSTERONE (test code = 2830) 829 NG/DL 300-890 [id number] 06:47:26 Test Item Value Reference Interpretation Comments Range CEA (test <1.8 See_Comment In otherwise h ealthy smokers, 95% of code = NG/ML patients fall i n the rangeof 0.0-5.5 2645) ng/mL. NOTE: Me thodology is Mach[employer] Charity Electrochemilum inescenceImmunoassay (ECLIA). [Autom ated message] The system which generated this result transmitted reference range : <=3.8. The reference range was not u sed to interpret this result as meri l/abnormal. [id number] 06:47:26 Test Item Value Reference Range Interpretation Comments NT-proBNP <50 PG/ML SEE BELOW If NT-ProBNP i s less than 300 (test code = PG/ML, heart fa ilure is unlikely 73009) for allages. Age............ .....Heart Failure Likely <50 Years.......... .>=450 PG/ML 50-75 Years.... .....>=900 PG/ML > 75 Years..... .....>=1800 PG/ML Methodology: Ro rafaela Charity Electrochemilum inescense Immunoassay UNL ESS OTHERWISE INDICATED, ALL TESTING PERFORMED ATCLINICAL PATH [facility], [facility]. [address] [place] [address] 4 ANTENNA INSTALLER: Enzo LUNA [id number] CAP ACCREDITATION N O. [id number] TSH, THIRD [id number] 06:46:17 Test Item Value Reference Range Interpretation Comments TSH, THIRD GENERATION (test code 0.903 UIU/ML 0.400-4.100 = 2821) PSA, [id number] 06:46:17 Test Item Value Reference Range Interpretation Comments PSA, TOTAL 0.27 NG/ML See_Comment NOTE: Methodol ogy is Macho (test code = Charity Electroch emiluminescence 2606) Immunoassay tra ceable to WHO reference stand radha 96/760. [Automated mess age] The system which generated this result transmitted ref erence range: <=4.00. The ref erence range was not used to int erpret this result as meri l/abnormal. COMPREHENSIVE METABOLIC [id number] 04:00:55 Test Item Value Reference Range Interpretation Comments GLUCOSE (test code = 140 MG/DL 70-99 H 2216) BUN (test code = 9 MG/DL 6-20 2207) CREATININE (test 0.67 MG/DL 0.80-1.40 L code = 221) eGFR (2020 CKD-EPI) 113 >60 (test code = 43729) ML/MIN/1.73 CALC BUN/CREAT (test 13 RATIO 6-28 code = 2235) SODIUM (test code = 140 MEQ/L 242-501 6998) POTASSIUM (test code 4.1 MEQ/L 3.5-5.4 = 2227) CHLORIDE (test code 99 MEQ/L 95-107 = 2214) CARBON DIOXIDE (test 27 MEQ/L 19-31 code = 2205) CALCIUM (test code = 9.7 MG/DL 8.5-10.5 2208) PROTEIN, TOTAL (test 6.8 G/DL 6.1-8.3 code = 2228) ALBUMIN (test code = 4.5 G/DL 3.5-5.2 2200) CALC GLOBULIN (test 2.3 G/DL 1.9-3.7 code = 224) CALC A/G RATIO (test 2.0 RATIO 1.0-2.6 code = 223) BILIRUBIN, TOTAL 0.7 MG/DL See_Comment [Automated message] (test code = 220) The syste m which generated this result transmit uzma reference range : <=1.2. The refe rence range was not u sed to interpret th is result as normal/abnormal . ALKALINE PHOSPHATASE 85 U/L 40-121 (test code = 2203) AST (test code = 14 U/L 9-50 2217) ALT (test code = 18 U/L 5-50 2218) LIPID [id number] 04:00:55 Test Item Value Reference Range Interpretation Comments CHOLESTEROL (test 110 MG/DL <200 code = 2210) TRIGLYCERIDES (test 130 MG/DL <150 code = 2232) HDL CHOLESTEROL (test 31 MG/DL >39 L code = 2220) CALC LDL CHOL (test 58 MG/DL <100 NOTE: C ALCULATED LDL code = 2237) IS BASED ON MIHAI-GONSALVES METHOD WHICHINCLUDES ADJUSTABLE TRIGLYCERIDE:VL DL CHOLESTEROL RAT IO.THIS FACTOR VARIES B Y MEASURED TRIGLY CERIDE AND NON-HDLCHOL ESTEROL CONCENTRATIONS WITH INCREASED CALCU LATED LDL SEENIN HIGH ER TRIGLYCERIDE OR LOWER NON-HDL SPECIME NS. FOR MOREINFORMATION , SEE CLIENT ANNOUNCE MENT AT [email or web address] [email or web address] RATIO LDL/HDL 1.87 RATIO <3.55 (test code = 2238) CBC W/AUTO DIFF WITH [id number] 03:07:43 Test Item Value Reference Range Interpretation Comments WBC (test code = 7.3 K/UL 3.5-11.0 1001) RBC (test code = 5.36 M/UL 4.50-6.10 1002) HEMOGLOBIN (test code 14.4 G/DL 13.5-17.0 = 1003) HEMATOCRIT (test code 41.3 % 40.0-51.0 = 1004) MCV (test code = 77.1 fL 80.0-99.0 L 1005) MCH (test code = 26.9 PG 25.0-33.0 1006) MCHC (test code = 34.9 G/DL 31.0-36.0 1007) RDW (test code = 15.5 % 11.5-15.0 H 1038) NEUTROPHILS (test 64.6 % code = 1008) LYMPHOCYTES (test 24.3 % code = 1010) MONOCYTES (test code 8.1 % = 1011) EOSINOPHILS (test 1.8 % code = 1012) BASOPHILS (test code 0.6 % = 1013) IMMATURE GRANULOCYTES 0.6 % (test code = 1036) NUCLEATED RBCS (test 0.0 /100 WBC'S See_Comment [Aut omated code = 1065) message] The sy stem which generated this result transmitted reference range : 0.0. The refere nce range was not u sed to interpret th is result as normal/abnormal . PLATELET COUNT (test 192 K/UL 130-400 code = 1015) ABSOLUTE NEUTROPHILS 4.70 K/UL 1.50-7.50 (test code = 1066) ABSOLUTE LYMPHOCYTES 1.77 K/UL 1.00-4.00 (test code = 1067) ABSOLUTE MONOCYTES 0.59 K/UL 0.20-1.00 (test code = 1068) ABSOLUTE EOSINOPHILS 0.13 K/UL 0.00-0.50 (test code = 1040) ABSOLUTE BASOPHILS 0.04 K/UL 0.00-0.20 (test code = 1069) ABS IMMATURE 0.04 K/UL 0.00-0.10 GRANULOCYTES (test code = 1020) ABS NUCLEATED RBCS 0.00 K/UL 0.00-0.11 (test code = 92433) CBC W/AUTO DIFF WITH PLATELETS [ADDED]2022-06-27 00:00:00 Test Item Value Reference Range Interpretation Comments WBC (test code = 1001) 7.3 K/UL RBC (test code = 1002) 5.36 M/UL HEMOGLOBIN (test code = 1003) 14.4 G/DL HEMATOCRIT (test code = 1004) 41.3 % MCV (test code = 1005) 77.1 fL MCH (test code = 1006) 26.9 PG MCHC (test code = 1007) 34.9 G/DL RDW (test code = 1038) 15.5 % NEUTROPHILS (test code = 1008) 64.6 % LYMPHOCYTES (test code = 1010) 24.3 % MONOCYTES (test code = 1011) 8.1 % EOSINOPHILS (test code = 1012) 1.8 % BASOPHILS (test code = 1013) 0.6 % IMMATURE GRANULOCYTES (test 0.6 % code = 1036) NUCLEATED RBCS (test code = 0.0 /100WBC'S 1065) PLATELET COUNT (test code = 192 K/UL 1015) ABSOLUTE NEUTROPHILS (test code 4.70 K/UL = 1066) ABSOLUTE LYMPHOCYTES (test code 1.77 K/UL = 1067) ABSOLUTE MONOCYTES (test code = 0.59 K/UL 1068) ABSOLUTE EOSINOPHILS (test code 0.13 K/UL = 1040) ABSOLUTE BASOPHILS (test code = 0.04 K/UL 1069) ABS IMMATURE GRANULOCYTES (test 0.04 K/UL code = 1020) ABS NUCLEATED RBCS (test code = 0.00 K/UL 71684) CBC W/AUTO DIFF WITH PLATELETS [ADDED]2022-06-27 00:00:00 Test Item Value Reference Range Interpretation Comments WBC (test code = 1001) 7.3 K/UL RBC (test code = 1002) 5.36 M/UL HEMOGLOBIN (test code = 1003) 14.4 G/DL HEMATOCRIT (test code = 1004) 41.3 % MCV (test code = 1005) 77.1 fL MCH (test code = 1006) 26.9 PG MCHC (test code = 1007) 34.9 G/DL RDW (test code = 1038) 15.5 % NEUTROPHILS (test code = 1008) 64.6 % LYMPHOCYTES (test code = 1010) 24.3 % MONOCYTES (test code = 1011) 8.1 % EOSINOPHILS (test code = 1012) 1.8 % BASOPHILS (test code = 1013) 0.6 % IMMATURE GRANULOCYTES (test 0.6 % code = 1036) NUCLEATED RBCS (test code = 0.0 /100WBC'S 1065) PLATELET COUNT (test code = 192 K/UL 1015) ABSOLUTE NEUTROPHILS (test code 4.70 K/UL = 1066) ABSOLUTE LYMPHOCYTES (test code 1.77 K/UL = 1067) ABSOLUTE MONOCYTES (test code = 0.59 K/UL 1068) ABSOLUTE EOSINOPHILS (test code 0.13 K/UL = 1040) ABSOLUTE BASOPHILS (test code = 0.04 K/UL 1069) ABS IMMATURE GRANULOCYTES (test 0.04 K/UL code = 1020) ABS NUCLEATED RBCS (test code = 0.00 K/UL 90818) CBC W/AUTO DIFF WITH PLATELETS [ADDED]2022-06-27 00:00:00 Test Item Value Reference Range Interpretation Comments WBC (test code = 1001) 7.3 K/UL RBC (test code = 1002) 5.36 M/UL HEMOGLOBIN (test code = 1003) 14.4 G/DL HEMATOCRIT (test code = 1004) 41.3 % MCV (test code = 1005) 77.1 fL MCH (test code = 1006) 26.9 PG MCHC (test code = 1007) 34.9 G/DL RDW (test code = 1038) 15.5 % NEUTROPHILS (test code = 1008) 64.6 % LYMPHOCYTES (test code = 1010) 24.3 % MONOCYTES (test code = 1011) 8.1 % EOSINOPHILS (test code = 1012) 1.8 % BASOPHILS (test code = 1013) 0.6 % IMMATURE GRANULOCYTES (test 0.6 % code = 1036) NUCLEATED RBCS (test code = 0.0 /100WBC'S 1065) PLATELET COUNT (test code = 192 K/UL 1015) ABSOLUTE NEUTROPHILS (test code 4.70 K/UL = 1066) ABSOLUTE LYMPHOCYTES (test code 1.77 K/UL = 1067) ABSOLUTE MONOCYTES (test code = 0.59 K/UL 1068) ABSOLUTE EOSINOPHILS (test code 0.13 K/UL = 1040) ABSOLUTE BASOPHILS (test code = 0.04 K/UL 1069) ABS IMMATURE GRANULOCYTES (test 0.04 K/UL code = 1020) ABS NUCLEATED RBCS (test code = 0.00 K/UL 23491) COMPREHENSIVE METABOLIC PANEL [ADDED]2022-06-27 00:00:00 Test Item Value Reference Range Interpretation Comments GLUCOSE (test code = 2217) 140 MG/DL BUN (test code = 2208) 9 MG/DL CREATININE (test code = 2214) 0.67 MG/DL eGFR (2020 CKD-EPI) (test 113 ML/MIN/1.73 code = 35611) CALC BUN/CREAT (test code = 13 RATIO 2235) SODIUM (test code = 2231) 140 MEQ/L POTASSIUM (test code = 2228) 4.1 MEQ/L CHLORIDE (test code = 2215) 99 MEQ/L CARBON DIOXIDE (test code = 27 MEQ/L 2205) CALCIUM (test code = 2209) 9.7 MG/DL PROTEIN, TOTAL (test code = 6.8 G/DL 2228) ALBUMIN (test code = 2201) 4.5 G/DL CALC GLOBULIN (test code = 2.3 G/DL 2240) CALC A/G RATIO (test code = 2.0 RATIO 2234) BILIRUBIN, TOTAL (test code = 0.7 MG/DL 220) ALKALINE PHOSPHATASE (test 85 U/L code = 2204) AST (test code = 2218) 14 U/L ALT (test code = 2219) 18 U/L COMPREHENSIVE METABOLIC PANEL [ADDED]2022-06-27 00:00:00 Test Item Value Reference Range Interpretation Comments GLUCOSE (test code = 2217) 140 MG/DL BUN (test code = 2208) 9 MG/DL CREATININE (test code = 2214) 0.67 MG/DL eGFR (2020 CKD-EPI) (test 113 ML/MIN/1.73 code = 41146) CALC BUN/CREAT (test code = 13 RATIO 2235) SODIUM (test code = 2231) 140 MEQ/L POTASSIUM (test code = 2228) 4.1 MEQ/L CHLORIDE (test code = 2215) 99 MEQ/L CARBON DIOXIDE (test code = 27 MEQ/L 2205) CALCIUM (test code = 2209) 9.7 MG/DL PROTEIN, TOTAL (test code = 6.8 G/DL 2228) ALBUMIN (test code = 2201) 4.5 G/DL CALC GLOBULIN (test code = 2.3 G/DL 2240) CALC A/G RATIO (test code = 2.0 RATIO 223) BILIRUBIN, TOTAL (test code = 0.7 MG/DL 2206) ALKALINE PHOSPHATASE (test 85 U/L code = 2204) AST (test code = 2218) 14 U/L ALT (test code = 2219) 18 U/L LIPID PANEL [ADDED]2022-06-27 00:00:00 Test Item Value Reference Range Interpretation Comments CHOLESTEROL (test code = 2210) 110 MG/DL TRIGLYCERIDES (test code = 2232) 130 MG/DL HDL CHOLESTEROL (test code = 2220) 31 MG/DL CALC LDL CHOL (test code = 2237) 58 MG/DL RISK RATIO LDL/HDL (test code = 1.87 RATIO 2238) LIPID PANEL [ADDED]2022-06-27 00:00:00 Test Item Value Reference Range Interpretation Comments CHOLESTEROL (test code = 2210) 110 MG/DL TRIGLYCERIDES (test code = 2232) 130 MG/DL HDL CHOLESTEROL (test code = 2220) 31 MG/DL CALC LDL CHOL (test code = 2237) 58 MG/DL RISK RATIO LDL/HDL (test code = 1.87 RATIO 2238) TSH, THIRD GENERATION [ADDED]2022-06-27 00:00:00 Test Item Value Reference Range Interpretation Comments TSH, THIRD GENERATION (test code 0.903 UIU/ML = 2821) TSH, THIRD GENERATION [ADDED]2022-06-27 00:00:00 Test Item Value Reference Range Interpretation Comments TSH, THIRD GENERATION (test code 0.903 UIU/ML = 2821) TSH, THIRD GENERATION [ADDED]2022-06-27 00:00:00 Test Item Value Reference Range Interpretation Comments TSH, THIRD GENERATION (test code 0.903 UIU/ML = 2821) PSA, TOTAL [ADDED]2022-06-27 00:00:00 Test Item Value Reference Range Interpretation Comments PSA, TOTAL (test code = 2606) 0.27 NG/ML PSA, TOTAL [ADDED]2022-06-27 00:00:00 Test Item Value Reference Range Interpretation Comments PSA, TOTAL (test code = 2606) 0.27 NG/ML PSA, TOTAL [ADDED]2022-06-27 00:00:00 Test Item Value Reference Range Interpretation Comments PSA, TOTAL (test code = 2606) 0.27 NG/ML TESTOSTERONE [ADDED]2022-06-27 00:00:00 Test Item Value Reference Range Interpretation Comments TESTOSTERONE (test code = 2830) 829 NG/DL TESTOSTERONE [ADDED]2022-06-27 00:00:00 Test Item Value Reference Range Interpretation Comments TESTOSTERONE (test code = 2830) 829 NG/DL CEA [ADDED]2022-06-27 00:00:00 Test Item Value Reference Range Interpretation Comments CEA (test code = 2645) <1.8 NG/ML CEA [ADDED]2022-06-27 00:00:00 Test Item Value Reference Range Interpretation Comments CEA (test code = 2645) <1.8 NG/ML NT-proBNP [ADDED]2022-06-27 00:00:00 Test Item Value Reference Range Interpretation Comments NT-proBNP (test code = 22818) <50 PG/ML NT-proBNP [ADDED]2022-06-27 00:00:00 Test Item Value Reference Range Interpretation Comments NT-proBNP (test code = 94351) <50 PG/ML NT-proBNP [ADDED]2022-06-27 00:00:00 Test Item Value Reference Range Interpretation Comments NT-proBNP (test code = 20243) <50 PG/ML CBC W/AUTO DIFF WITH PLATELETS [ADDED]2022-06-27 00:00:00 Test Item Value Reference Range Interpretation Comments WBC (test code = 1001) 7.3 K/UL RBC (test code = 1002) 5.36 M/UL HEMOGLOBIN (test code = 1003) 14.4 G/DL HEMATOCRIT (test code = 1004) 41.3 % MCV (test code = 1005) 77.1 fL MCH (test code = 1006) 26.9 PG MCHC (test code = 1007) 34.9 G/DL RDW (test code = 1038) 15.5 % NEUTROPHILS (test code = 1008) 64.6 % LYMPHOCYTES (test code = 1010) 24.3 % MONOCYTES (test code = 1011) 8.1 % EOSINOPHILS (test code = 1012) 1.8 % BASOPHILS (test code = 1013) 0.6 % IMMATURE GRANULOCYTES (test 0.6 % code = 1036) NUCLEATED RBCS (test code = 0.0 /100WBC'S 1065) PLATELET COUNT (test code = 192 K/UL 1015) ABSOLUTE NEUTROPHILS (test code 4.70 K/UL = 1066) ABSOLUTE LYMPHOCYTES (test code 1.77 K/UL = 1067) ABSOLUTE MONOCYTES (test code = 0.59 K/UL 1068) ABSOLUTE EOSINOPHILS (test code 0.13 K/UL = 1040) ABSOLUTE BASOPHILS (test code = 0.04 K/UL 1069) ABS IMMATURE GRANULOCYTES (test 0.04 K/UL code = 1020) ABS NUCLEATED RBCS (test code = 0.00 K/UL 38293) CBC W/AUTO DIFF WITH PLATELETS [ADDED]2022-06-27 00:00:00 Test Item Value Reference Range Interpretation Comments WBC (test code = 1001) 7.3 K/UL RBC (test code = 1002) 5.36 M/UL HEMOGLOBIN (test code = 1003) 14.4 G/DL HEMATOCRIT (test code = 1004) 41.3 % MCV (test code = 1005) 77.1 fL MCH (test code = 1006) 26.9 PG MCHC (test code = 1007) 34.9 G/DL RDW (test code = 1038) 15.5 % NEUTROPHILS (test code = 1008) 64.6 % LYMPHOCYTES (test code = 1010) 24.3 % MONOCYTES (test code = 1011) 8.1 % EOSINOPHILS (test code = 1012) 1.8 % BASOPHILS (test code = 1013) 0.6 % IMMATURE GRANULOCYTES (test 0.6 % code = 1036) NUCLEATED RBCS (test code = 0.0 /100WBC'S 1065) PLATELET COUNT (test code = 192 K/UL 1015) ABSOLUTE NEUTROPHILS (test code 4.70 K/UL = 1066) ABSOLUTE LYMPHOCYTES (test code 1.77 K/UL = 1067) ABSOLUTE MONOCYTES (test code = 0.59 K/UL 1068) ABSOLUTE EOSINOPHILS (test code 0.13 K/UL = 1040) ABSOLUTE BASOPHILS (test code = 0.04 K/UL 1069) ABS IMMATURE GRANULOCYTES (test 0.04 K/UL code = 1020) ABS NUCLEATED RBCS (test code = 0.00 K/UL 80786) CBC W/AUTO DIFF WITH PLATELETS [ADDED]2022-06-27 00:00:00 Test Item Value Reference Range Interpretation Comments WBC (test code = 1001) 7.3 K/UL RBC (test code = 1002) 5.36 M/UL HEMOGLOBIN (test code = 1003) 14.4 G/DL HEMATOCRIT (test code = 1004) 41.3 % MCV (test code = 1005) 77.1 fL MCH (test code = 1006) 26.9 PG MCHC (test code = 1007) 34.9 G/DL RDW (test code = 1038) 15.5 % NEUTROPHILS (test code = 1008) 64.6 % LYMPHOCYTES (test code = 1010) 24.3 % MONOCYTES (test code = 1011) 8.1 % EOSINOPHILS (test code = 1012) 1.8 % BASOPHILS (test code = 1013) 0.6 % IMMATURE GRANULOCYTES (test 0.6 % code = 1036) NUCLEATED RBCS (test code = 0.0 /100WBC'S 1065) PLATELET COUNT (test code = 192 K/UL 1015) ABSOLUTE NEUTROPHILS (test code 4.70 K/UL = 1066) ABSOLUTE LYMPHOCYTES (test code 1.77 K/UL = 1067) ABSOLUTE MONOCYTES (test code = 0.59 K/UL 1068) ABSOLUTE EOSINOPHILS (test code 0.13 K/UL = 1040) ABSOLUTE BASOPHILS (test code = 0.04 K/UL 1069) ABS IMMATURE GRANULOCYTES (test 0.04 K/UL code = 1020) ABS NUCLEATED RBCS (test code = 0.00 K/UL 33606) COMPREHENSIVE METABOLIC PANEL [ADDED]2022-06-27 00:00:00 Test Item Value Reference Range Interpretation Comments GLUCOSE (test code = 2217) 140 MG/DL BUN (test code = 2208) 9 MG/DL CREATININE (test code = 2214) 0.67 MG/DL eGFR (2020 CKD-EPI) (test 113 ML/MIN/1.73 code = 13709) CALC BUN/CREAT (test code = 13 RATIO 2235) SODIUM (test code = 2231) 140 MEQ/L POTASSIUM (test code = 2228) 4.1 MEQ/L CHLORIDE (test code = 2215) 99 MEQ/L CARBON DIOXIDE (test code = 27 MEQ/L 2206) CALCIUM (test code = 2209) 9.7 MG/DL PROTEIN, TOTAL (test code = 6.8 G/DL 222) ALBUMIN (test code = 2201) 4.5 G/DL CALC GLOBULIN (test code = 2.3 G/DL 2240) CALC A/G RATIO (test code = 2.0 RATIO 2234) BILIRUBIN, TOTAL (test code = 0.7 MG/DL 2206) ALKALINE PHOSPHATASE (test 85 U/L code = 2204) AST (test code = 2218) 14 U/L ALT (test code = 2219) 18 U/L COMPREHENSIVE METABOLIC PANEL [ADDED]2022-06-27 00:00:00 Test Item Value Reference Range Interpretation Comments GLUCOSE (test code = 2217) 140 MG/DL BUN (test code = 2208) 9 MG/DL CREATININE (test code = 2214) 0.67 MG/DL eGFR (2020 CKD-EPI) (test 113 ML/MIN/1.73 code = 98384) CALC BUN/CREAT (test code = 13 RATIO 2235) SODIUM (test code = 2231) 140 MEQ/L POTASSIUM (test code = 2228) 4.1 MEQ/L CHLORIDE (test code = 2215) 99 MEQ/L CARBON DIOXIDE (test code = 27 MEQ/L 6) CALCIUM (test code = 2209) 9.7 MG/DL PROTEIN, TOTAL (test code = 6.8 G/DL 9) ALBUMIN (test code = 2201) 4.5 G/DL CALC GLOBULIN (test code = 2.3 G/DL 2240) CALC A/G RATIO (test code = 2.0 RATIO 2234) BILIRUBIN, TOTAL (test code = 0.7 MG/DL 7) ALKALINE PHOSPHATASE (test 85 U/L code = 2204) AST (test code = 2218) 14 U/L ALT (test code = 2219) 18 U/L LIPID PANEL [ADDED]2022-06-27 00:00:00 Test Item Value Reference Range Interpretation Comments CHOLESTEROL (test code = 2210) 110 MG/DL TRIGLYCERIDES (test code = 2232) 130 MG/DL HDL CHOLESTEROL (test code = 2220) 31 MG/DL CALC LDL CHOL (test code = 2237) 58 MG/DL RISK RATIO LDL/HDL (test code = 1.87 RATIO 2238) LIPID PANEL [ADDED]2022-06-27 00:00:00 Test Item Value Reference Range Interpretation Comments CHOLESTEROL (test code = 2210) 110 MG/DL TRIGLYCERIDES (test code = 2232) 130 MG/DL HDL CHOLESTEROL (test code = 2220) 31 MG/DL CALC LDL CHOL (test code = 2237) 58 MG/DL RISK RATIO LDL/HDL (test code = 1.87 RATIO 2238) TSH, THIRD GENERATION [ADDED]2022-06-27 00:00:00 Test Item Value Reference Range Interpretation Comments TSH, THIRD GENERATION (test code 0.903 UIU/ML = 2821) TSH, THIRD GENERATION [ADDED]2022-06-27 00:00:00 Test Item Value Reference Range Interpretation Comments TSH, THIRD GENERATION (test code 0.903 UIU/ML = 2821) TSH, THIRD GENERATION [ADDED]2022-06-27 00:00:00 Test Item Value Reference Range Interpretation Comments TSH, THIRD GENERATION (test code 0.903 UIU/ML = 2821) PSA, TOTAL [ADDED]2022-06-27 00:00:00 Test Item Value Reference Range Interpretation Comments PSA, TOTAL (test code = 2606) 0.27 NG/ML PSA, TOTAL [ADDED]2022-06-27 00:00:00 Test Item Value Reference Range Interpretation Comments PSA, TOTAL (test code = 2606) 0.27 NG/ML PSA, TOTAL [ADDED]2022-06-27 00:00:00 Test Item Value Reference Range Interpretation Comments PSA, TOTAL (test code = 2606) 0.27 NG/ML TESTOSTERONE [ADDED]2022-06-27 00:00:00 Test Item Value Reference Range Interpretation Comments TESTOSTERONE (test code = 2830) 829 NG/DL TESTOSTERONE [ADDED]2022-06-27 00:00:00 Test Item Value Reference Range Interpretation Comments TESTOSTERONE (test code = 2830) 829 NG/DL CEA [ADDED]2022-06-27 00:00:00 Test Item Value Reference Range Interpretation Comments CEA (test code = 2645) <1.8 NG/ML CEA [ADDED]2022-06-27 00:00:00 Test Item Value Reference Range Interpretation Comments CEA (test code = 2645) <1.8 NG/ML NT-proBNP [ADDED]2022-06-27 00:00:00 Test Item Value Reference Range Interpretation Comments NT-proBNP (test code = 66264) <50 PG/ML NT-proBNP [ADDED]2022-06-27 00:00:00 Test Item Value Reference Range Interpretation Comments NT-proBNP (test code = 52456) <50 PG/ML NT-proBNP [ADDED]2022-06-27 00:00:00 Test Item Value Reference Range Interpretation Comments NT-proBNP (test code = 08912) <50 PG/ML CBC W/AUTO DIFF WITH PLATELETS [ADDED]2022-06-27 00:00:00 Test Item Value Reference Range Interpretation Comments WBC (test code = 1001) 7.3 K/UL RBC (test code = 1002) 5.36 M/UL HEMOGLOBIN (test code = 1003) 14.4 G/DL HEMATOCRIT (test code = 1004) 41.3 % MCV (test code = 1005) 77.1 fL MCH (test code = 1006) 26.9 PG MCHC (test code = 1007) 34.9 G/DL RDW (test code = 1038) 15.5 % NEUTROPHILS (test code = 1008) 64.6 % LYMPHOCYTES (test code = 1010) 24.3 % MONOCYTES (test code = 1011) 8.1 % EOSINOPHILS (test code = 1012) 1.8 % BASOPHILS (test code = 1013) 0.6 % IMMATURE GRANULOCYTES (test 0.6 % code = 1036) NUCLEATED RBCS (test code = 0.0 /100WBC'S 1065) PLATELET COUNT (test code = 192 K/UL 1015) ABSOLUTE NEUTROPHILS (test code 4.70 K/UL = 1066) ABSOLUTE LYMPHOCYTES (test code 1.77 K/UL = 1067) ABSOLUTE MONOCYTES (test code = 0.59 K/UL 1068) ABSOLUTE EOSINOPHILS (test code 0.13 K/UL = 1040) ABSOLUTE BASOPHILS (test code = 0.04 K/UL 1069) ABS IMMATURE GRANULOCYTES (test 0.04 K/UL code = 1020) ABS NUCLEATED RBCS (test code = 0.00 K/UL 72719) CBC W/AUTO DIFF WITH PLATELETS [ADDED]2022-06-27 00:00:00 Test Item Value Reference Range Interpretation Comments WBC (test code = 1001) 7.3 K/UL RBC (test code = 1002) 5.36 M/UL HEMOGLOBIN (test code = 1003) 14.4 G/DL HEMATOCRIT (test code = 1004) 41.3 % MCV (test code = 1005) 77.1 fL MCH (test code = 1006) 26.9 PG MCHC (test code = 1007) 34.9 G/DL RDW (test code = 1038) 15.5 % NEUTROPHILS (test code = 1008) 64.6 % LYMPHOCYTES (test code = 1010) 24.3 % MONOCYTES (test code = 1011) 8.1 % EOSINOPHILS (test code = 1012) 1.8 % BASOPHILS (test code = 1013) 0.6 % IMMATURE GRANULOCYTES (test 0.6 % code = 1036) NUCLEATED RBCS (test code = 0.0 /100WBC'S 1065) PLATELET COUNT (test code = 192 K/UL 1015) ABSOLUTE NEUTROPHILS (test code 4.70 K/UL = 1066) ABSOLUTE LYMPHOCYTES (test code 1.77 K/UL = 1067) ABSOLUTE MONOCYTES (test code = 0.59 K/UL 1068) ABSOLUTE EOSINOPHILS (test code 0.13 K/UL = 1040) ABSOLUTE BASOPHILS (test code = 0.04 K/UL 1069) ABS IMMATURE GRANULOCYTES (test 0.04 K/UL code = 1020) ABS NUCLEATED RBCS (test code = 0.00 K/UL 67557) CBC W/AUTO DIFF WITH PLATELETS [ADDED]2022-06-27 00:00:00 Test Item Value Reference Range Interpretation Comments WBC (test code = 1001) 7.3 K/UL RBC (test code = 1002) 5.36 M/UL HEMOGLOBIN (test code = 1003) 14.4 G/DL HEMATOCRIT (test code = 1004) 41.3 % MCV (test code = 1005) 77.1 fL MCH (test code = 1006) 26.9 PG MCHC (test code = 1007) 34.9 G/DL RDW (test code = 1038) 15.5 % NEUTROPHILS (test code = 1008) 64.6 % LYMPHOCYTES (test code = 1010) 24.3 % MONOCYTES (test code = 1011) 8.1 % EOSINOPHILS (test code = 1012) 1.8 % BASOPHILS (test code = 1013) 0.6 % IMMATURE GRANULOCYTES (test 0.6 % code = 1036) NUCLEATED RBCS (test code = 0.0 /100WBC'S 1065) PLATELET COUNT (test code = 192 K/UL 1015) ABSOLUTE NEUTROPHILS (test code 4.70 K/UL = 1066) ABSOLUTE LYMPHOCYTES (test code 1.77 K/UL = 1067) ABSOLUTE MONOCYTES (test code = 0.59 K/UL 1068) ABSOLUTE EOSINOPHILS (test code 0.13 K/UL = 1040) ABSOLUTE BASOPHILS (test code = 0.04 K/UL 1069) ABS IMMATURE GRANULOCYTES (test 0.04 K/UL code = 1020) ABS NUCLEATED RBCS (test code = 0.00 K/UL 07137) COMPREHENSIVE METABOLIC PANEL [ADDED]2022-06-27 00:00:00 Test Item Value Reference Range Interpretation Comments GLUCOSE (test code = 2217) 140 MG/DL BUN (test code = 2208) 9 MG/DL CREATININE (test code = 2214) 0.67 MG/DL eGFR (2020 CKD-EPI) (test 113 ML/MIN/1.73 code = 67994) CALC BUN/CREAT (test code = 13 RATIO 2235) SODIUM (test code = 2231) 140 MEQ/L POTASSIUM (test code = 2228) 4.1 MEQ/L CHLORIDE (test code = 2215) 99 MEQ/L CARBON DIOXIDE (test code = 27 MEQ/L 2206) CALCIUM (test code = 2209) 9.7 MG/DL PROTEIN, TOTAL (test code = 6.8 G/DL 222) ALBUMIN (test code = 2201) 4.5 G/DL CALC GLOBULIN (test code = 2.3 G/DL 2240) CALC A/G RATIO (test code = 2.0 RATIO 2234) BILIRUBIN, TOTAL (test code = 0.7 MG/DL 2207) ALKALINE PHOSPHATASE (test 85 U/L code = 2204) AST (test code = 2218) 14 U/L ALT (test code = 2219) 18 U/L COMPREHENSIVE METABOLIC PANEL [ADDED]2022-06-27 00:00:00 Test Item Value Reference Range Interpretation Comments GLUCOSE (test code = 2217) 140 MG/DL BUN (test code = 2208) 9 MG/DL CREATININE (test code = 2214) 0.67 MG/DL eGFR (2020 CKD-EPI) (test 113 ML/MIN/1.73 code = 17332) CALC BUN/CREAT (test code = 13 RATIO 2235) SODIUM (test code = 2231) 140 MEQ/L POTASSIUM (test code = 2228) 4.1 MEQ/L CHLORIDE (test code = 2215) 99 MEQ/L CARBON DIOXIDE (test code = 27 MEQ/L 2205) CALCIUM (test code = 2209) 9.7 MG/DL PROTEIN, TOTAL (test code = 6.8 G/DL 2228) ALBUMIN (test code = 2201) 4.5 G/DL CALC GLOBULIN (test code = 2.3 G/DL 224) CALC A/G RATIO (test code = 2.0 RATIO 223) BILIRUBIN, TOTAL (test code = 0.7 MG/DL 2206) ALKALINE PHOSPHATASE (test 85 U/L code = 2204) AST (test code = 2218) 14 U/L ALT (test code = 2219) 18 U/L LIPID PANEL [ADDED]2022-06-27 00:00:00 Test Item Value Reference Range Interpretation Comments CHOLESTEROL (test code = 2210) 110 MG/DL TRIGLYCERIDES (test code = 2232) 130 MG/DL HDL CHOLESTEROL (test code = 2220) 31 MG/DL CALC LDL CHOL (test code = 2237) 58 MG/DL RISK RATIO LDL/HDL (test code = 1.87 RATIO 2238) LIPID PANEL [ADDED]2022-06-27 00:00:00 Test Item Value Reference Range Interpretation Comments CHOLESTEROL (test code = 2210) 110 MG/DL TRIGLYCERIDES (test code = 2232) 130 MG/DL HDL CHOLESTEROL (test code = 2220) 31 MG/DL CALC LDL CHOL (test code = 2237) 58 MG/DL RISK RATIO LDL/HDL (test code = 1.87 RATIO 2238) TSH, THIRD GENERATION [ADDED]2022-06-27 00:00:00 Test Item Value Reference Range Interpretation Comments TSH, THIRD GENERATION (test code 0.903 UIU/ML = 2821) TSH, THIRD GENERATION [ADDED]2022-06-27 00:00:00 Test Item Value Reference Range Interpretation Comments TSH, THIRD GENERATION (test code 0.903 UIU/ML = 2821) TSH, THIRD GENERATION [ADDED]2022-06-27 00:00:00 Test Item Value Reference Range Interpretation Comments TSH, THIRD GENERATION (test code 0.903 UIU/ML = 2821) PSA, TOTAL [ADDED]2022-06-27 00:00:00 Test Item Value Reference Range Interpretation Comments PSA, TOTAL (test code = 2606) 0.27 NG/ML PSA, TOTAL [ADDED]2022-06-27 00:00:00 Test Item Value Reference Range Interpretation Comments PSA, TOTAL (test code = 2606) 0.27 NG/ML PSA, TOTAL [ADDED]2022-06-27 00:00:00 Test Item Value Reference Range Interpretation Comments PSA, TOTAL (test code = 2606) 0.27 NG/ML TESTOSTERONE [ADDED]2022-06-27 00:00:00 Test Item Value Reference Range Interpretation Comments TESTOSTERONE (test code = 2830) 829 NG/DL TESTOSTERONE [ADDED]2022-06-27 00:00:00 Test Item Value Reference Range Interpretation Comments TESTOSTERONE (test code = 2830) 829 NG/DL CEA [ADDED]2022-06-27 00:00:00 Test Item Value Reference Range Interpretation Comments CEA (test code = 2645) <1.8 NG/ML CEA [ADDED]2022-06-27 00:00:00 Test Item Value Reference Range Interpretation Comments CEA (test code = 2645) <1.8 NG/ML NT-proBNP [ADDED]2022-06-27 00:00:00 Test Item Value Reference Range Interpretation Comments NT-proBNP (test code = 07967) <50 PG/ML NT-proBNP [ADDED]2022-06-27 00:00:00 Test Item Value Reference Range Interpretation Comments NT-proBNP (test code = 34356) <50 PG/ML NT-proBNP [ADDED]2022-06-27 00:00:00 Test Item Value Reference Range Interpretation Comments NT-proBNP (test code = 78812) <50 PG/ML CBC W/AUTO DIFF WITH PLATELETS [ADDED]2022-06-27 00:00:00 Test Item Value Reference Range Interpretation Comments WBC (test code = 1001) 7.3 K/UL RBC (test code = 1002) 5.36 M/UL HEMOGLOBIN (test code = 1003) 14.4 G/DL HEMATOCRIT (test code = 1004) 41.3 % MCV (test code = 1005) 77.1 fL MCH (test code = 1006) 26.9 PG MCHC (test code = 1007) 34.9 G/DL RDW (test code = 1038) 15.5 % NEUTROPHILS (test code = 1008) 64.6 % LYMPHOCYTES (test code = 1010) 24.3 % MONOCYTES (test code = 1011) 8.1 % EOSINOPHILS (test code = 1012) 1.8 % BASOPHILS (test code = 1013) 0.6 % IMMATURE GRANULOCYTES (test 0.6 % code = 1036) NUCLEATED RBCS (test code = 0.0 /100WBC'S 1065) PLATELET COUNT (test code = 192 K/UL 1015) ABSOLUTE NEUTROPHILS (test code 4.70 K/UL = 1066) ABSOLUTE LYMPHOCYTES (test code 1.77 K/UL = 1067) ABSOLUTE MONOCYTES (test code = 0.59 K/UL 1068) ABSOLUTE EOSINOPHILS (test code 0.13 K/UL = 1040) ABSOLUTE BASOPHILS (test code = 0.04 K/UL 1069) ABS IMMATURE GRANULOCYTES (test 0.04 K/UL code = 1020) ABS NUCLEATED RBCS (test code = 0.00 K/UL 13081) CBC W/AUTO DIFF WITH PLATELETS [ADDED]2022-06-27 00:00:00 Test Item Value Reference Range Interpretation Comments WBC (test code = 1001) 7.3 K/UL RBC (test code = 1002) 5.36 M/UL HEMOGLOBIN (test code = 1003) 14.4 G/DL HEMATOCRIT (test code = 1004) 41.3 % MCV (test code = 1005) 77.1 fL MCH (test code = 1006) 26.9 PG MCHC (test code = 1007) 34.9 G/DL RDW (test code = 1038) 15.5 % NEUTROPHILS (test code = 1008) 64.6 % LYMPHOCYTES (test code = 1010) 24.3 % MONOCYTES (test code = 1011) 8.1 % EOSINOPHILS (test code = 1012) 1.8 % BASOPHILS (test code = 1013) 0.6 % IMMATURE GRANULOCYTES (test 0.6 % code = 1036) NUCLEATED RBCS (test code = 0.0 /100WBC'S 1065) PLATELET COUNT (test code = 192 K/UL 1015) ABSOLUTE NEUTROPHILS (test code 4.70 K/UL = 1066) ABSOLUTE LYMPHOCYTES (test code 1.77 K/UL = 1067) ABSOLUTE MONOCYTES (test code = 0.59 K/UL 1068) ABSOLUTE EOSINOPHILS (test code 0.13 K/UL = 1040) ABSOLUTE BASOPHILS (test code = 0.04 K/UL 1069) ABS IMMATURE GRANULOCYTES (test 0.04 K/UL code = 1020) ABS NUCLEATED RBCS (test code = 0.00 K/UL 76715) COMPREHENSIVE METABOLIC PANEL [ADDED]2022-06-27 00:00:00 Test Item Value Reference Range Interpretation Comments GLUCOSE (test code = 2217) 140 MG/DL BUN (test code = 2208) 9 MG/DL CREATININE (test code = 2214) 0.67 MG/DL eGFR (2020 CKD-EPI) (test 113 ML/MIN/1.73 code = 55220) CALC BUN/CREAT (test code = 13 RATIO 2235) SODIUM (test code = 2231) 140 MEQ/L POTASSIUM (test code = 2228) 4.1 MEQ/L CHLORIDE (test code = 2215) 99 MEQ/L CARBON DIOXIDE (test code = 27 MEQ/L 2205) CALCIUM (test code = 2209) 9.7 MG/DL PROTEIN, TOTAL (test code = 6.8 G/DL 2228) ALBUMIN (test code = 2201) 4.5 G/DL CALC GLOBULIN (test code = 2.3 G/DL 2240) CALC A/G RATIO (test code = 2.0 RATIO 2234) BILIRUBIN, TOTAL (test code = 0.7 MG/DL 2206) ALKALINE PHOSPHATASE (test 85 U/L code = 2204) AST (test code = 2218) 14 U/L ALT (test code = 2219) 18 U/L LIPID PANEL [ADDED]2022-06-27 00:00:00 Test Item Value Reference Range Interpretation Comments CHOLESTEROL (test code = 2210) 110 MG/DL TRIGLYCERIDES (test code = 2232) 130 MG/DL HDL CHOLESTEROL (test code = 2220) 31 MG/DL CALC LDL CHOL (test code = 2237) 58 MG/DL RISK RATIO LDL/HDL (test code = 1.87 RATIO 2238) TSH, THIRD GENERATION [ADDED]2022-06-27 00:00:00 Test Item Value Reference Range Interpretation Comments TSH, THIRD GENERATION (test code 0.903 UIU/ML = 2821) TSH, THIRD GENERATION [ADDED]2022-06-27 00:00:00 Test Item Value Reference Range Interpretation Comments TSH, THIRD GENERATION (test code 0.903 UIU/ML = 2821) PSA, TOTAL [ADDED]2022-06-27 00:00:00 Test Item Value Reference Range Interpretation Comments PSA, TOTAL (test code = 2606) 0.27 NG/ML PSA, TOTAL [ADDED]2022-06-27 00:00:00 Test Item Value Reference Range Interpretation Comments PSA, TOTAL (test code = 2606) 0.27 NG/ML TESTOSTERONE [ADDED]2022-06-27 00:00:00 Test Item Value Reference Range Interpretation Comments TESTOSTERONE (test code = 2830) 829 NG/DL CEA [ADDED]2022-06-27 00:00:00 Test Item Value Reference Range Interpretation Comments CEA (test code = 2645) <1.8 NG/ML NT-proBNP [ADDED]2022-06-27 00:00:00 Test Item Value Reference Range Interpretation Comments NT-proBNP (test code = 32851) <50 PG/ML NT-proBNP [ADDED]2022-06-27 00:00:00 Test Item Value Reference Range Interpretation Comments NT-proBNP (test code = 47607) <50 PG/ML CBC W/AUTO DIFF WITH PLATELETS [ADDED]2022-06-27 00:00:00 Test Item Value Reference Range Interpretation Comments WBC (test code = 1001) 7.3 K/UL RBC (test code = 1002) 5.36 M/UL HEMOGLOBIN (test code = 1003) 14.4 G/DL HEMATOCRIT (test code = 1004) 41.3 % MCV (test code = 1005) 77.1 fL MCH (test code = 1006) 26.9 PG MCHC (test code = 1007) 34.9 G/DL RDW (test code = 1038) 15.5 % NEUTROPHILS (test code = 1008) 64.6 % LYMPHOCYTES (test code = 1010) 24.3 % MONOCYTES (test code = 1011) 8.1 % EOSINOPHILS (test code = 1012) 1.8 % BASOPHILS (test code = 1013) 0.6 % IMMATURE GRANULOCYTES (test 0.6 % code = 1036) NUCLEATED RBCS (test code = 0.0 /100WBC'S 1065) PLATELET COUNT (test code = 192 K/UL 1015) ABSOLUTE NEUTROPHILS (test code 4.70 K/UL = 1066) ABSOLUTE LYMPHOCYTES (test code 1.77 K/UL = 1067) ABSOLUTE MONOCYTES (test code = 0.59 K/UL 1068) ABSOLUTE EOSINOPHILS (test code 0.13 K/UL = 1040) ABSOLUTE BASOPHILS (test code = 0.04 K/UL 1069) ABS IMMATURE GRANULOCYTES (test 0.04 K/UL code = 1020) ABS NUCLEATED RBCS (test code = 0.00 K/UL 99641) CBC W/AUTO DIFF WITH PLATELETS [ADDED]2022-06-27 00:00:00 Test Item Value Reference Range Interpretation Comments WBC (test code = 1001) 7.3 K/UL RBC (test code = 1002) 5.36 M/UL HEMOGLOBIN (test code = 1003) 14.4 G/DL HEMATOCRIT (test code = 1004) 41.3 % MCV (test code = 1005) 77.1 fL MCH (test code = 1006) 26.9 PG MCHC (test code = 1007) 34.9 G/DL RDW (test code = 1038) 15.5 % NEUTROPHILS (test code = 1008) 64.6 % LYMPHOCYTES (test code = 1010) 24.3 % MONOCYTES (test code = 1011) 8.1 % EOSINOPHILS (test code = 1012) 1.8 % BASOPHILS (test code = 1013) 0.6 % IMMATURE GRANULOCYTES (test 0.6 % code = 1036) NUCLEATED RBCS (test code = 0.0 /100WBC'S 1065) PLATELET COUNT (test code = 192 K/UL 1015) ABSOLUTE NEUTROPHILS (test code 4.70 K/UL = 1066) ABSOLUTE LYMPHOCYTES (test code 1.77 K/UL = 1067) ABSOLUTE MONOCYTES (test code = 0.59 K/UL 1068) ABSOLUTE EOSINOPHILS (test code 0.13 K/UL = 1040) ABSOLUTE BASOPHILS (test code = 0.04 K/UL 1069) ABS IMMATURE GRANULOCYTES (test 0.04 K/UL code = 1020) ABS NUCLEATED RBCS (test code = 0.00 K/UL 11173) COMPREHENSIVE METABOLIC PANEL [ADDED]2022-06-27 00:00:00 Test Item Value Reference Range Interpretation Comments GLUCOSE (test code = 2217) 140 MG/DL BUN (test code = 2208) 9 MG/DL CREATININE (test code = 2214) 0.67 MG/DL eGFR (2020 CKD-EPI) (test 113 ML/MIN/1.73 code = 23658) CALC BUN/CREAT (test code = 13 RATIO 2234) SODIUM (test code = 2231) 140 MEQ/L POTASSIUM (test code = 2228) 4.1 MEQ/L CHLORIDE (test code = 2215) 99 MEQ/L CARBON DIOXIDE (test code = 27 MEQ/L 2205) CALCIUM (test code = 220) 9.7 MG/DL PROTEIN, TOTAL (test code = 6.8 G/DL 2228) ALBUMIN (test code = 220) 4.5 G/DL CALC GLOBULIN (test code = 2.3 G/DL 2239) CALC A/G RATIO (test code = 2.0 RATIO 2233) BILIRUBIN, TOTAL (test code = 0.7 MG/DL 2206) ALKALINE PHOSPHATASE (test 85 U/L code = 2204) AST (test code = 2218) 14 U/L ALT (test code = 2219) 18 U/L LIPID PANEL [ADDED]2022-06-27 00:00:00 Test Item Value Reference Range Interpretation Comments CHOLESTEROL (test code = 2210) 110 MG/DL TRIGLYCERIDES (test code = 2232) 130 MG/DL HDL CHOLESTEROL (test code = 2220) 31 MG/DL CALC LDL CHOL (test code = 2237) 58 MG/DL RISK RATIO LDL/HDL (test code = 1.87 RATIO 8) TSH, THIRD GENERATION [ADDED]2022-06-27 00:00:00 Test Item Value Reference Range Interpretation Comments TSH, THIRD GENERATION (test code 0.903 UIU/ML = 2821) TSH, THIRD GENERATION [ADDED]2022-06-27 00:00:00 Test Item Value Reference Range Interpretation Comments TSH, THIRD GENERATION (test code 0.903 UIU/ML = 2821) PSA, TOTAL [ADDED]2022-06-27 00:00:00 Test Item Value Reference Range Interpretation Comments PSA, TOTAL (test code = 2606) 0.27 NG/ML PSA, TOTAL [ADDED]2022-06-27 00:00:00 Test Item Value Reference Range Interpretation Comments PSA, TOTAL (test code = 2606) 0.27 NG/ML TESTOSTERONE [ADDED]2022-06-27 00:00:00 Test Item Value Reference Range Interpretation Comments TESTOSTERONE (test code = 2830) 829 NG/DL CEA [ADDED]2022-06-27 00:00:00 Test Item Value Reference Range Interpretation Comments CEA (test code = 2645) <1.8 NG/ML NT-proBNP [ADDED]2022-06-27 00:00:00 Test Item Value Reference Range Interpretation Comments NT-proBNP (test code = 33025) <50 PG/ML NT-proBNP [ADDED]2022-06-27 00:00:00 Test Item Value Reference Range Interpretation Comments NT-proBNP (test code = 44597) <50 PG/ML CBC W/AUTO DIFF WITH [id number] 04:00:05 Test Item Value Reference Range Interpretation Comments WBC (test code = 6.9 K/UL 3.5-11.0 1001) RBC (test code = 5.27 M/UL 4.50-6.10 1002) HEMOGLOBIN (test code 14.1 G/DL 13.5-17.0 = 1003) HEMATOCRIT (test code 40.3 % 40.0-51.0 = 1004) MCV (test code = 76.5 fL 80.0-99.0 L 1005) MCH (test code = 26.8 PG 25.0-33.0 1006) MCHC (test code = 35.0 G/DL 31.0-36.0 1007) RDW (test code = 16.3 % 11.5-15.0 H 1038) NEUTROPHILS (test 64.8 % code = 1008) LYMPHOCYTES (test 25.4 % code = 1010) MONOCYTES (test code 7.2 % = 1011) EOSINOPHILS (test 1.9 % code = 1012) BASOPHILS (test code 0.4 % = 1013) IMMATURE GRANULOCYTES 0.3 % (test code = 1036) NUCLEATED RBCS (test 0.0 /100 WBC'S See_Comment [Aut omated code = 1065) message] The sy stem which generated this result transmitted reference range : 0.0. The refere nce range was not u sed to interpret th is result as normal/abnormal . PLATELET COUNT (test 172 K/UL 130-400 code = 1015) ABSOLUTE NEUTROPHILS 4.48 K/UL 1.50-7.50 (test code = 1066) ABSOLUTE LYMPHOCYTES 1.76 K/UL 1.00-4.00 (test code = 1067) ABSOLUTE MONOCYTES 0.50 K/UL 0.20-1.00 (test code = 1068) ABSOLUTE EOSINOPHILS 0.13 K/UL 0.00-0.50 (test code = 1040) ABSOLUTE BASOPHILS 0.03 K/UL 0.00-0.20 (test code = 1069) ABS IMMATURE 0.02 K/UL 0.00-0.10 GRANULOCYTES (test code = 1020) ABS NUCLEATED RBCS 0.00 K/UL 0.00-0.11 (test code = 35139) TESTOSTERONE, FREE/TOTAL WITH [id number] 03:41:48 Test Item Value Reference Range Interpretation Comments TESTOSTERONE (test code = 2830) 187 NG/DL 300-890 L SEX HORM BIND GLOBULIN (test code 18.0 NMOL/L 19.3-76.4 L = 4933) CALC FREE TESTOSTERONE (test code 48.1 PG/ML 47.0-244.0 = 05419) PSA, [id number] 03:41:34 Test Item Value Reference Range Interpretation Comments PSA, TOTAL 0.15 NG/ML See_Comment NOTE: Methodol ogy is Macho (test code = Charity Electroch emiluminescence 2606) Immunoassay tra ceable to WHO reference stand radha 96/760. [Automated mess age] The system which generated this result transmitted ref erence range: <=4.00. The ref erence range was not used to int erpret this result as meri l/abnormal. [id number] 03:41:34 Test Item Value Reference Range Interpretation Comments ESTRADIOL (test code 23.7 PG/ML See_Comment Note: Values in the = 2505) range of 17-25 PG/ML may demonstrate increased impre cision. Clinical correl ation is recommended. [Automated mess age] The system [employer] generated this result transmitted ref erence range: <=60.7. The reference range was not used to int erpret this result as normal/abnormal . COMPREHENSIVE METABOLIC [id number] 02:17:57 Test Item Value Reference Range Interpretation Comments GLUCOSE (test code = 146 MG/DL 70-99 H 2216) BUN (test code = 18 MG/DL -20 2207) CREATININE (test 0.75 MG/DL 0.80-1.40 L code = 221) eGFR (2020 CKD-EPI) 110 >60 (test code = 25014) ML/MIN/1.73 CALC BUN/CREAT (test 24 RATIO 6-28 code = 2235) SODIUM (test code = 141 MEQ/L 445-288 2736) POTASSIUM (test code 4.3 MEQ/L 3.5-5.4 = 2227) CHLORIDE (test code 104 MEQ/L 95-107 = 2214) CARBON DIOXIDE (test 24 MEQ/L 19-31 code = 220) CALCIUM (test code = 9.3 MG/DL 8.5-10.5 2208) PROTEIN, TOTAL (test 6.7 G/DL 6.1-8.3 code = 2228) ALBUMIN (test code = 4.4 G/DL 3.5-5.2 2200) CALC GLOBULIN (test 2.3 G/DL 1.9-3.7 code = 2239) CALC A/G RATIO (test 1.9 RATIO 1.0-2.6 code = 2233) BILIRUBIN, TOTAL 0.6 MG/DL See_Comment [Automated message] (test code = 2207) The syste m which generated this result transmitted ref erence range: <=1.2. T he reference range was not used to int erpret this result as normal/abnormal . ALKALINE PHOSPHATASE 87 U/L 40-118 (test code = 220) AST (test code = 12 U/L 9-50 2217) ALT (test code = 21 U/L 5-50 UNLESS OTH ERWISE 2218) INDICATED, ALL TESTING PERFORM [facility] [place] [place], [place] [id number] [place] [address] DIRECTOR: YESSI SHETH M.D. CLIA NUMBER [id number] CAP ACCREDITATION N O. [id number] CBC W/AUTO [id number] 00:00:00 Test Item Value Reference Range Interpretation Comments WBC (test code = 1001) 6.9 K/UL RBC (test code = 1002) 5.27 M/UL HEMOGLOBIN (test code = 1003) 14.1 G/DL HEMATOCRIT (test code = 1004) 40.3 % MCV (test code = 1005) 76.5 fL MCH (test code = 1006) 26.8 PG MCHC (test code = 1007) 35.0 G/DL RDW (test code = 1038) 16.3 % NEUTROPHILS (test code = 1008) 64.8 % LYMPHOCYTES (test code = 1010) 25.4 % MONOCYTES (test code = 1011) 7.2 % EOSINOPHILS (test code = 1012) 1.9 % BASOPHILS (test code = 1013) 0.4 % IMMATURE GRANULOCYTES (test 0.3 % code = 1036) NUCLEATED RBCS (test code = 0.0 /100WBC'S 1065) PLATELET COUNT (test code = 172 K/UL 1015) ABSOLUTE NEUTROPHILS (test code 4.48 K/UL = 1066) ABSOLUTE LYMPHOCYTES (test code 1.76 K/UL = 1067) ABSOLUTE MONOCYTES (test code = 0.50 K/UL 1068) ABSOLUTE EOSINOPHILS (test code 0.13 K/UL = 1040) ABSOLUTE BASOPHILS (test code = 0.03 K/UL 1069) ABS IMMATURE GRANULOCYTES (test 0.02 K/UL code = 1020) ABS NUCLEATED RBCS (test code = 0.00 K/UL 67612) CBC W/AUTO [id number] 00:00:00 Test Item Value Reference Range Interpretation Comments WBC (test code = 1001) 6.9 K/UL RBC (test code = 1002) 5.27 M/UL HEMOGLOBIN (test code = 1003) 14.1 G/DL HEMATOCRIT (test code = 1004) 40.3 % MCV (test code = 1005) 76.5 fL MCH (test code = 1006) 26.8 PG MCHC (test code = 1007) 35.0 G/DL RDW (test code = 1038) 16.3 % NEUTROPHILS (test code = 1008) 64.8 % LYMPHOCYTES (test code = 1010) 25.4 % MONOCYTES (test code = 1011) 7.2 % EOSINOPHILS (test code = 1012) 1.9 % BASOPHILS (test code = 1013) 0.4 % IMMATURE GRANULOCYTES (test 0.3 % code = 1036) NUCLEATED RBCS (test code = 0.0 /100WBC'S 1065) PLATELET COUNT (test code = 172 K/UL 1015) ABSOLUTE NEUTROPHILS (test code 4.48 K/UL = 1066) ABSOLUTE LYMPHOCYTES (test code 1.76 K/UL = 1067) ABSOLUTE MONOCYTES (test code = 0.50 K/UL 1068) ABSOLUTE EOSINOPHILS (test code 0.13 K/UL = 1040) ABSOLUTE BASOPHILS (test code = 0.03 K/UL 1069) ABS IMMATURE GRANULOCYTES (test 0.02 K/UL code = 1020) ABS NUCLEATED RBCS (test code = 0.00 K/UL 83615) CBC W/AUTO [id number] 00:00:00 Test Item Value Reference Range Interpretation Comments WBC (test code = 1001) 6.9 K/UL RBC (test code = 1002) 5.27 M/UL HEMOGLOBIN (test code = 1003) 14.1 G/DL HEMATOCRIT (test code = 1004) 40.3 % MCV (test code = 1005) 76.5 fL MCH (test code = 1006) 26.8 PG MCHC (test code = 1007) 35.0 G/DL RDW (test code = 1038) 16.3 % NEUTROPHILS (test code = 1008) 64.8 % LYMPHOCYTES (test code = 1010) 25.4 % MONOCYTES (test code = 1011) 7.2 % EOSINOPHILS (test code = 1012) 1.9 % BASOPHILS (test code = 1013) 0.4 % IMMATURE GRANULOCYTES (test 0.3 % code = 1036) NUCLEATED RBCS (test code = 0.0 /100WBC'S 1065) PLATELET COUNT (test code = 172 K/UL 1015) ABSOLUTE NEUTROPHILS (test code 4.48 K/UL = 1066) ABSOLUTE LYMPHOCYTES (test code 1.76 K/UL = 1067) ABSOLUTE MONOCYTES (test code = 0.50 K/UL 1068) ABSOLUTE EOSINOPHILS (test code 0.13 K/UL = 1040) ABSOLUTE BASOPHILS (test code = 0.03 K/UL 1069) ABS IMMATURE GRANULOCYTES (test 0.02 K/UL code = 1020) ABS NUCLEATED RBCS (test code = 0.00 K/UL 15453) PSA, [id number] 00:00:00 Test Item Value Reference Range Interpretation Comments PSA, TOTAL (test code = 2606) 0.15 NG/ML PSA, [id number] 00:00:00 Test Item Value Reference Range Interpretation Comments PSA, TOTAL (test code = 2606) 0.15 NG/ML PSA, [id number] 00:00:00 Test Item Value Reference Range Interpretation Comments PSA, TOTAL (test code = 2606) 0.15 NG/ML TESTOSTERONE, FREE/TOTAL WITH [id number] 00:00:00 Test Item Value Reference Range Interpretation Comments TESTOSTERONE (test code = 2830) 187 NG/DL SEX HORM BIND GLOBULIN (test code 18.0 NMOL/L = 4933) CALC FREE TESTOSTERONE (test code 48.1 PG/ML = 69680) TESTOSTERONE, FREE/TOTAL WITH [id number] 00:00:00 Test Item Value Reference Range Interpretation Comments TESTOSTERONE (test code = 2830) 187 NG/DL SEX HORM BIND GLOBULIN (test code 18.0 NMOL/L = 4933) CALC FREE TESTOSTERONE (test code 48.1 PG/ML = 92898) [id number] 00:00:00 Test Item Value Reference Range Interpretation Comments ESTRADIOL (test code = 2505) 23.7 PG/ML [id number] 00:00:00 Test Item Value Reference Range Interpretation Comments ESTRADIOL (test code = 2505) 23.7 PG/ML [id number] 00:00:00 Test Item Value Reference Range Interpretation Comments ESTRADIOL (test code = 2505) 23.7 PG/ML COMPREHENSIVE METABOLIC [id number] 00:00:00 Test Item Value Reference Range Interpretation Comments GLUCOSE (test code = 2217) 146 MG/DL BUN (test code = 2208) 18 MG/DL CREATININE (test code = 2214) 0.75 MG/DL eGFR (2020 CKD-EPI) (test 110 ML/MIN/1.73 code = 97528) CALC BUN/CREAT (test code = 24 RATIO 2235) SODIUM (test code = 2231) 141 MEQ/L POTASSIUM (test code = 2228) 4.3 MEQ/L CHLORIDE (test code = 2215) 104 MEQ/L CARBON DIOXIDE (test code = 24 MEQ/L 2205) CALCIUM (test code = 2209) 9.3 MG/DL PROTEIN, TOTAL (test code = 6.7 G/DL 2228) ALBUMIN (test code = 2201) 4.4 G/DL CALC GLOBULIN (test code = 2.3 G/DL 2239) CALC A/G RATIO (test code = 1.9 RATIO 2234) BILIRUBIN, TOTAL (test code = 0.6 MG/DL 2206) ALKALINE PHOSPHATASE (test 87 U/L code = 2204) AST (test code = 2218) 12 U/L ALT (test code = 2219) 21 U/L COMPREHENSIVE METABOLIC [id number] 00:00:00 Test Item Value Reference Range Interpretation Comments GLUCOSE (test code = 2217) 146 MG/DL BUN (test code = 2208) 18 MG/DL CREATININE (test code = 2214) 0.75 MG/DL eGFR (2020 CKD-EPI) (test 110 ML/MIN/1.73 code = 72400) CALC BUN/CREAT (test code = 24 RATIO 2235) SODIUM (test code = 2231) 141 MEQ/L POTASSIUM (test code = 2228) 4.3 MEQ/L CHLORIDE (test code = 2215) 104 MEQ/L CARBON DIOXIDE (test code = 24 MEQ/L 2205) CALCIUM (test code = 2209) 9.3 MG/DL PROTEIN, TOTAL (test code = 6.7 G/DL 2228) ALBUMIN (test code = 2201) 4.4 G/DL CALC GLOBULIN (test code = 2.3 G/DL 2239) CALC A/G RATIO (test code = 1.9 RATIO 2233) BILIRUBIN, TOTAL (test code = 0.6 MG/DL 2206) ALKALINE PHOSPHATASE (test 87 U/L code = 2204) AST (test code = 2218) 12 U/L ALT (test code = 2219) 21 U/L CBC W/AUTO [id number] 00:00:00 Test Item Value Reference Range Interpretation Comments WBC (test code = 1001) 6.9 K/UL RBC (test code = 1002) 5.27 M/UL HEMOGLOBIN (test code = 1003) 14.1 G/DL HEMATOCRIT (test code = 1004) 40.3 % MCV (test code = 1005) 76.5 fL MCH (test code = 1006) 26.8 PG MCHC (test code = 1007) 35.0 G/DL RDW (test code = 1038) 16.3 % NEUTROPHILS (test code = 1008) 64.8 % LYMPHOCYTES (test code = 1010) 25.4 % MONOCYTES (test code = 1011) 7.2 % EOSINOPHILS (test code = 1012) 1.9 % BASOPHILS (test code = 1013) 0.4 % IMMATURE GRANULOCYTES (test 0.3 % code = 1036) NUCLEATED RBCS (test code = 0.0 /100WBC'S 1065) PLATELET COUNT (test code = 172 K/UL 1015) ABSOLUTE NEUTROPHILS (test code 4.48 K/UL = 1066) ABSOLUTE LYMPHOCYTES (test code 1.76 K/UL = 1067) ABSOLUTE MONOCYTES (test code = 0.50 K/UL 1068) ABSOLUTE EOSINOPHILS (test code 0.13 K/UL = 1040) ABSOLUTE BASOPHILS (test code = 0.03 K/UL 1069) ABS IMMATURE GRANULOCYTES (test 0.02 K/UL code = 1020) ABS NUCLEATED RBCS (test code = 0.00 K/UL 80315) CBC W/AUTO [id number] 00:00:00 Test Item Value Reference Range Interpretation Comments WBC (test code = 1001) 6.9 K/UL RBC (test code = 1002) 5.27 M/UL HEMOGLOBIN (test code = 1003) 14.1 G/DL HEMATOCRIT (test code = 1004) 40.3 % MCV (test code = 1005) 76.5 fL MCH (test code = 1006) 26.8 PG MCHC (test code = 1007) 35.0 G/DL RDW (test code = 1038) 16.3 % NEUTROPHILS (test code = 1008) 64.8 % LYMPHOCYTES (test code = 1010) 25.4 % MONOCYTES (test code = 1011) 7.2 % EOSINOPHILS (test code = 1012) 1.9 % BASOPHILS (test code = 1013) 0.4 % IMMATURE GRANULOCYTES (test 0.3 % code = 1036) NUCLEATED RBCS (test code = 0.0 /100WBC'S 1065) PLATELET COUNT (test code = 172 K/UL 1015) ABSOLUTE NEUTROPHILS (test code 4.48 K/UL = 1066) ABSOLUTE LYMPHOCYTES (test code 1.76 K/UL = 1067) ABSOLUTE MONOCYTES (test code = 0.50 K/UL 1068) ABSOLUTE EOSINOPHILS (test code 0.13 K/UL = 1040) ABSOLUTE BASOPHILS (test code = 0.03 K/UL 1069) ABS IMMATURE GRANULOCYTES (test 0.02 K/UL code = 1020) ABS NUCLEATED RBCS (test code = 0.00 K/UL 98981) CBC W/AUTO [id number] 00:00:00 Test Item Value Reference Range Interpretation Comments WBC (test code = 1001) 6.9 K/UL RBC (test code = 1002) 5.27 M/UL HEMOGLOBIN (test code = 1003) 14.1 G/DL HEMATOCRIT (test code = 1004) 40.3 % MCV (test code = 1005) 76.5 fL MCH (test code = 1006) 26.8 PG MCHC (test code = 1007) 35.0 G/DL RDW (test code = 1038) 16.3 % NEUTROPHILS (test code = 1008) 64.8 % LYMPHOCYTES (test code = 1010) 25.4 % MONOCYTES (test code = 1011) 7.2 % EOSINOPHILS (test code = 1012) 1.9 % BASOPHILS (test code = 1013) 0.4 % IMMATURE GRANULOCYTES (test 0.3 % code = 1036) NUCLEATED RBCS (test code = 0.0 /100WBC'S 1065) PLATELET COUNT (test code = 172 K/UL 1015) ABSOLUTE NEUTROPHILS (test code 4.48 K/UL = 1066) ABSOLUTE LYMPHOCYTES (test code 1.76 K/UL = 1067) ABSOLUTE MONOCYTES (test code = 0.50 K/UL 1068) ABSOLUTE EOSINOPHILS (test code 0.13 K/UL = 1040) ABSOLUTE BASOPHILS (test code = 0.03 K/UL 1069) ABS IMMATURE GRANULOCYTES (test 0.02 K/UL code = 1020) ABS NUCLEATED RBCS (test code = 0.00 K/UL 11811) PSA, [id number] 00:00:00 Test Item Value Reference Range Interpretation Comments PSA, TOTAL (test code = 2606) 0.15 NG/ML PSA, [id number] 00:00:00 Test Item Value Reference Range Interpretation Comments PSA, TOTAL (test code = 2606) 0.15 NG/ML PSA, [id number] 00:00:00 Test Item Value Reference Range Interpretation Comments PSA, TOTAL (test code = 2606) 0.15 NG/ML TESTOSTERONE, FREE/TOTAL WITH [id number] 00:00:00 Test Item Value Reference Range Interpretation Comments TESTOSTERONE (test code = 2830) 187 NG/DL SEX HORM BIND GLOBULIN (test code 18.0 NMOL/L = 4933) CALC FREE TESTOSTERONE (test code 48.1 PG/ML = 28403) TESTOSTERONE, FREE/TOTAL WITH [id number] 00:00:00 Test Item Value Reference Range Interpretation Comments TESTOSTERONE (test code = 2830) 187 NG/DL SEX HORM BIND GLOBULIN (test code 18.0 NMOL/L = 4933) CALC FREE TESTOSTERONE (test code 48.1 PG/ML = 41653) [id number] 00:00:00 Test Item Value Reference Range Interpretation Comments ESTRADIOL (test code = 2505) 23.7 PG/ML [id number] 00:00:00 Test Item Value Reference Range Interpretation Comments ESTRADIOL (test code = 2505) 23.7 PG/ML [id number] 00:00:00 Test Item Value Reference Range Interpretation Comments ESTRADIOL (test code = 2505) 23.7 PG/ML COMPREHENSIVE METABOLIC [id number] 00:00:00 Test Item Value Reference Range Interpretation Comments GLUCOSE (test code = 2217) 146 MG/DL BUN (test code = 2208) 18 MG/DL CREATININE (test code = 2214) 0.75 MG/DL eGFR (2020 CKD-EPI) (test 110 ML/MIN/1.73 code = 04856) CALC BUN/CREAT (test code = 24 RATIO 2235) SODIUM (test code = 2231) 141 MEQ/L POTASSIUM (test code = 2228) 4.3 MEQ/L CHLORIDE (test code = 2215) 104 MEQ/L CARBON DIOXIDE (test code = 24 MEQ/L 2205) CALCIUM (test code = 2209) 9.3 MG/DL PROTEIN, TOTAL (test code = 6.7 G/DL 2228) ALBUMIN (test code = 2201) 4.4 G/DL CALC GLOBULIN (test code = 2.3 G/DL 0) CALC A/G RATIO (test code = 1.9 RATIO 2233) BILIRUBIN, TOTAL (test code = 0.6 MG/DL 2206) ALKALINE PHOSPHATASE (test 87 U/L code = 2204) AST (test code = 2218) 12 U/L ALT (test code = 2219) 21 U/L COMPREHENSIVE METABOLIC [id number] 00:00:00 Test Item Value Reference Range Interpretation Comments GLUCOSE (test code = 2217) 146 MG/DL BUN (test code = 2208) 18 MG/DL CREATININE (test code = 2214) 0.75 MG/DL eGFR (2020 CKD-EPI) (test 110 ML/MIN/1.73 code = 57068) CALC BUN/CREAT (test code = 24 RATIO 2235) SODIUM (test code = 2231) 141 MEQ/L POTASSIUM (test code = 2228) 4.3 MEQ/L CHLORIDE (test code = 2215) 104 MEQ/L CARBON DIOXIDE (test code = 24 MEQ/L 2205) CALCIUM (test code = 2209) 9.3 MG/DL PROTEIN, TOTAL (test code = 6.7 G/DL 2228) ALBUMIN (test code = 2201) 4.4 G/DL CALC GLOBULIN (test code = 2.3 G/DL 2239) CALC A/G RATIO (test code = 1.9 RATIO 2233) BILIRUBIN, TOTAL (test code = 0.6 MG/DL 2206) ALKALINE PHOSPHATASE (test 87 U/L code = 2204) AST (test code = 2218) 12 U/L ALT (test code = 2219) 21 U/L CBC W/AUTO [id number] 00:00:00 Test Item Value Reference Range Interpretation Comments WBC (test code = 1001) 6.9 K/UL RBC (test code = 1002) 5.27 M/UL HEMOGLOBIN (test code = 1003) 14.1 G/DL HEMATOCRIT (test code = 1004) 40.3 % MCV (test code = 1005) 76.5 fL MCH (test code = 1006) 26.8 PG MCHC (test code = 1007) 35.0 G/DL RDW (test code = 1038) 16.3 % NEUTROPHILS (test code = 1008) 64.8 % LYMPHOCYTES (test code = 1010) 25.4 % MONOCYTES (test code = 1011) 7.2 % EOSINOPHILS (test code = 1012) 1.9 % BASOPHILS (test code = 1013) 0.4 % IMMATURE GRANULOCYTES (test 0.3 % code = 1036) NUCLEATED RBCS (test code = 0.0 /100WBC'S 1065) PLATELET COUNT (test code = 172 K/UL 1015) ABSOLUTE NEUTROPHILS (test code 4.48 K/UL = 1066) ABSOLUTE LYMPHOCYTES (test code 1.76 K/UL = 1067) ABSOLUTE MONOCYTES (test code = 0.50 K/UL 1068) ABSOLUTE EOSINOPHILS (test code 0.13 K/UL = 1040) ABSOLUTE BASOPHILS (test code = 0.03 K/UL 1069) ABS IMMATURE GRANULOCYTES (test 0.02 K/UL code = 1020) ABS NUCLEATED RBCS (test code = 0.00 K/UL 33832) CBC W/AUTO [id number] 00:00:00 Test Item Value Reference Range Interpretation Comments WBC (test code = 1001) 6.9 K/UL RBC (test code = 1002) 5.27 M/UL HEMOGLOBIN (test code = 1003) 14.1 G/DL HEMATOCRIT (test code = 1004) 40.3 % MCV (test code = 1005) 76.5 fL MCH (test code = 1006) 26.8 PG MCHC (test code = 1007) 35.0 G/DL RDW (test code = 1038) 16.3 % NEUTROPHILS (test code = 1008) 64.8 % LYMPHOCYTES (test code = 1010) 25.4 % MONOCYTES (test code = 1011) 7.2 % EOSINOPHILS (test code = 1012) 1.9 % BASOPHILS (test code = 1013) 0.4 % IMMATURE GRANULOCYTES (test 0.3 % code = 1036) NUCLEATED RBCS (test code = 0.0 /100WBC'S 1065) PLATELET COUNT (test code = 172 K/UL 1015) ABSOLUTE NEUTROPHILS (test code 4.48 K/UL = 1066) ABSOLUTE LYMPHOCYTES (test code 1.76 K/UL = 1067) ABSOLUTE MONOCYTES (test code = 0.50 K/UL 1068) ABSOLUTE EOSINOPHILS (test code 0.13 K/UL = 1040) ABSOLUTE BASOPHILS (test code = 0.03 K/UL 1069) ABS IMMATURE GRANULOCYTES (test 0.02 K/UL code = 1020) ABS NUCLEATED RBCS (test code = 0.00 K/UL 62753) CBC W/AUTO [id number] 00:00:00 Test Item Value Reference Range Interpretation Comments WBC (test code = 1001) 6.9 K/UL RBC (test code = 1002) 5.27 M/UL HEMOGLOBIN (test code = 1003) 14.1 G/DL HEMATOCRIT (test code = 1004) 40.3 % MCV (test code = 1005) 76.5 fL MCH (test code = 1006) 26.8 PG MCHC (test code = 1007) 35.0 G/DL RDW (test code = 1038) 16.3 % NEUTROPHILS (test code = 1008) 64.8 % LYMPHOCYTES (test code = 1010) 25.4 % MONOCYTES (test code = 1011) 7.2 % EOSINOPHILS (test code = 1012) 1.9 % BASOPHILS (test code = 1013) 0.4 % IMMATURE GRANULOCYTES (test 0.3 % code = 1036) NUCLEATED RBCS (test code = 0.0 /100WBC'S 1065) PLATELET COUNT (test code = 172 K/UL 1015) ABSOLUTE NEUTROPHILS (test code 4.48 K/UL = 1066) ABSOLUTE LYMPHOCYTES (test code 1.76 K/UL = 1067) ABSOLUTE MONOCYTES (test code = 0.50 K/UL 1068) ABSOLUTE EOSINOPHILS (test code 0.13 K/UL = 1040) ABSOLUTE BASOPHILS (test code = 0.03 K/UL 1069) ABS IMMATURE GRANULOCYTES (test 0.02 K/UL code = 1020) ABS NUCLEATED RBCS (test code = 0.00 K/UL 36625) PSA, [id number] 00:00:00 Test Item Value Reference Range Interpretation Comments PSA, TOTAL (test code = 2606) 0.15 NG/ML PSA, [id number] 00:00:00 Test Item Value Reference Range Interpretation Comments PSA, TOTAL (test code = 2606) 0.15 NG/ML PSA, [id number] 00:00:00 Test Item Value Reference Range Interpretation Comments PSA, TOTAL (test code = 2606) 0.15 NG/ML TESTOSTERONE, FREE/TOTAL WITH [id number] 00:00:00 Test Item Value Reference Range Interpretation Comments TESTOSTERONE (test code = 2830) 187 NG/DL SEX HORM BIND GLOBULIN (test code 18.0 NMOL/L = 4933) CALC FREE TESTOSTERONE (test code 48.1 PG/ML = 15274) TESTOSTERONE, FREE/TOTAL WITH [id number] 00:00:00 Test Item Value Reference Range Interpretation Comments TESTOSTERONE (test code = 2830) 187 NG/DL SEX HORM BIND GLOBULIN (test code 18.0 NMOL/L = 4933) CALC FREE TESTOSTERONE (test code 48.1 PG/ML = 55748) [id number] 00:00:00 Test Item Value Reference Range Interpretation Comments ESTRADIOL (test code = 2505) 23.7 PG/ML [id number] 00:00:00 Test Item Value Reference Range Interpretation Comments ESTRADIOL (test code = 2505) 23.7 PG/ML [id number] 00:00:00 Test Item Value Reference Range Interpretation Comments ESTRADIOL (test code = 2505) 23.7 PG/ML COMPREHENSIVE METABOLIC [id number] 00:00:00 Test Item Value Reference Range Interpretation Comments GLUCOSE (test code = 2217) 146 MG/DL BUN (test code = 2208) 18 MG/DL CREATININE (test code = 2214) 0.75 MG/DL eGFR (2020 CKD-EPI) (test 110 ML/MIN/1.73 code = 25663) CALC BUN/CREAT (test code = 24 RATIO 2235) SODIUM (test code = 2231) 141 MEQ/L POTASSIUM (test code = 2228) 4.3 MEQ/L CHLORIDE (test code = 2215) 104 MEQ/L CARBON DIOXIDE (test code = 24 MEQ/L 2205) CALCIUM (test code = 2209) 9.3 MG/DL PROTEIN, TOTAL (test code = 6.7 G/DL 2228) ALBUMIN (test code = 2201) 4.4 G/DL CALC GLOBULIN (test code = 2.3 G/DL 0) CALC A/G RATIO (test code = 1.9 RATIO 2234) BILIRUBIN, TOTAL (test code = 0.6 MG/DL 2206) ALKALINE PHOSPHATASE (test 87 U/L code = 2204) AST (test code = 2218) 12 U/L ALT (test code = 2219) 21 U/L COMPREHENSIVE METABOLIC [id number] 00:00:00 Test Item Value Reference Range Interpretation Comments GLUCOSE (test code = 2217) 146 MG/DL BUN (test code = 2208) 18 MG/DL CREATININE (test code = 2214) 0.75 MG/DL eGFR (2020 CKD-EPI) (test 110 ML/MIN/1.73 code = 49235) CALC BUN/CREAT (test code = 24 RATIO 2235) SODIUM (test code = 2231) 141 MEQ/L POTASSIUM (test code = 2228) 4.3 MEQ/L CHLORIDE (test code = 2215) 104 MEQ/L CARBON DIOXIDE (test code = 24 MEQ/L 2205) CALCIUM (test code = 2209) 9.3 MG/DL PROTEIN, TOTAL (test code = 6.7 G/DL 9) ALBUMIN (test code = 2201) 4.4 G/DL CALC GLOBULIN (test code = 2.3 G/DL 2240) CALC A/G RATIO (test code = 1.9 RATIO 2234) BILIRUBIN, TOTAL (test code = 0.6 MG/DL 2206) ALKALINE PHOSPHATASE (test 87 U/L code = 2204) AST (test code = 2218) 12 U/L ALT (test code = 2219) 21 U/L CBC W/AUTO [id number] 00:00:00 Test Item Value Reference Range Interpretation Comments WBC (test code = 1001) 6.9 K/UL RBC (test code = 1002) 5.27 M/UL HEMOGLOBIN (test code = 1003) 14.1 G/DL HEMATOCRIT (test code = 1004) 40.3 % MCV (test code = 1005) 76.5 fL MCH (test code = 1006) 26.8 PG MCHC (test code = 1007) 35.0 G/DL RDW (test code = 1038) 16.3 % NEUTROPHILS (test code = 1008) 64.8 % LYMPHOCYTES (test code = 1010) 25.4 % MONOCYTES (test code = 1011) 7.2 % EOSINOPHILS (test code = 1012) 1.9 % BASOPHILS (test code = 1013) 0.4 % IMMATURE GRANULOCYTES (test 0.3 % code = 1036) NUCLEATED RBCS (test code = 0.0 /100WBC'S 1065) PLATELET COUNT (test code = 172 K/UL 1015) ABSOLUTE NEUTROPHILS (test code 4.48 K/UL = 1066) ABSOLUTE LYMPHOCYTES (test code 1.76 K/UL = 1067) ABSOLUTE MONOCYTES (test code = 0.50 K/UL 1068) ABSOLUTE EOSINOPHILS (test code 0.13 K/UL = 1040) ABSOLUTE BASOPHILS (test code = 0.03 K/UL 1069) ABS IMMATURE GRANULOCYTES (test 0.02 K/UL code = 1020) ABS NUCLEATED RBCS (test code = 0.00 K/UL 90619) CBC W/AUTO [id number] 00:00:00 Test Item Value Reference Range Interpretation Comments WBC (test code = 1001) 6.9 K/UL RBC (test code = 1002) 5.27 M/UL HEMOGLOBIN (test code = 1003) 14.1 G/DL HEMATOCRIT (test code = 1004) 40.3 % MCV (test code = 1005) 76.5 fL MCH (test code = 1006) 26.8 PG MCHC (test code = 1007) 35.0 G/DL RDW (test code = 1038) 16.3 % NEUTROPHILS (test code = 1008) 64.8 % LYMPHOCYTES (test code = 1010) 25.4 % MONOCYTES (test code = 1011) 7.2 % EOSINOPHILS (test code = 1012) 1.9 % BASOPHILS (test code = 1013) 0.4 % IMMATURE GRANULOCYTES (test 0.3 % code = 1036) NUCLEATED RBCS (test code = 0.0 /100WBC'S 1065) PLATELET COUNT (test code = 172 K/UL 1015) ABSOLUTE NEUTROPHILS (test code 4.48 K/UL = 1066) ABSOLUTE LYMPHOCYTES (test code 1.76 K/UL = 1067) ABSOLUTE MONOCYTES (test code = 0.50 K/UL 1068) ABSOLUTE EOSINOPHILS (test code 0.13 K/UL = 1040) ABSOLUTE BASOPHILS (test code = 0.03 K/UL 1069) ABS IMMATURE GRANULOCYTES (test 0.02 K/UL code = 1020) ABS NUCLEATED RBCS (test code = 0.00 K/UL 31811) PSA, [id number] 00:00:00 Test Item Value Reference Range Interpretation Comments PSA, TOTAL (test code = 2606) 0.15 NG/ML PSA, [id number] 00:00:00 Test Item Value Reference Range Interpretation Comments PSA, TOTAL (test code = 2606) 0.15 NG/ML TESTOSTERONE, FREE/TOTAL WITH [id number] 00:00:00 Test Item Value Reference Range Interpretation Comments TESTOSTERONE (test code = 2830) 187 NG/DL SEX HORM BIND GLOBULIN (test code 18.0 NMOL/L = 4933) CALC FREE TESTOSTERONE (test code 48.1 PG/ML = 41139) [id number] 00:00:00 Test Item Value Reference Range Interpretation Comments ESTRADIOL (test code = 2505) 23.7 PG/ML [id number] 00:00:00 Test Item Value Reference Range Interpretation Comments ESTRADIOL (test code = 2505) 23.7 PG/ML COMPREHENSIVE METABOLIC [id number] 00:00:00 Test Item Value Reference Range Interpretation Comments GLUCOSE (test code = 2217) 146 MG/DL BUN (test code = 2208) 18 MG/DL CREATININE (test code = 2214) 0.75 MG/DL eGFR (2020 CKD-EPI) (test 110 ML/MIN/1.73 code = 43720) CALC BUN/CREAT (test code = 24 RATIO 2235) SODIUM (test code = 2231) 141 MEQ/L POTASSIUM (test code = 2228) 4.3 MEQ/L CHLORIDE (test code = 2215) 104 MEQ/L CARBON DIOXIDE (test code = 24 MEQ/L 2205) CALCIUM (test code = 2209) 9.3 MG/DL PROTEIN, TOTAL (test code = 6.7 G/DL 2228) ALBUMIN (test code = 2201) 4.4 G/DL CALC GLOBULIN (test code = 2.3 G/DL 224) CALC A/G RATIO (test code = 1.9 RATIO 2234) BILIRUBIN, TOTAL (test code = 0.6 MG/DL 2206) ALKALINE PHOSPHATASE (test 87 U/L code = 2204) AST (test code = 2218) 12 U/L ALT (test code = 2219) 21 U/L CBC W/AUTO [id number] 00:00:00 Test Item Value Reference Range Interpretation Comments WBC (test code = 1001) 6.9 K/UL RBC (test code = 1002) 5.27 M/UL HEMOGLOBIN (test code = 1003) 14.1 G/DL HEMATOCRIT (test code = 1004) 40.3 % MCV (test code = 1005) 76.5 fL MCH (test code = 1006) 26.8 PG MCHC (test code = 1007) 35.0 G/DL RDW (test code = 1038) 16.3 % NEUTROPHILS (test code = 1008) 64.8 % LYMPHOCYTES (test code = 1010) 25.4 % MONOCYTES (test code = 1011) 7.2 % EOSINOPHILS (test code = 1012) 1.9 % BASOPHILS (test code = 1013) 0.4 % IMMATURE GRANULOCYTES (test 0.3 % code = 1036) NUCLEATED RBCS (test code = 0.0 /100WBC'S 1065) PLATELET COUNT (test code = 172 K/UL 1015) ABSOLUTE NEUTROPHILS (test code 4.48 K/UL = 1066) ABSOLUTE LYMPHOCYTES (test code 1.76 K/UL = 1067) ABSOLUTE MONOCYTES (test code = 0.50 K/UL 1068) ABSOLUTE EOSINOPHILS (test code 0.13 K/UL = 1040) ABSOLUTE BASOPHILS (test code = 0.03 K/UL 1069) ABS IMMATURE GRANULOCYTES (test 0.02 K/UL code = 1020) ABS NUCLEATED RBCS (test code = 0.00 K/UL 72759) CBC W/AUTO [id number] 00:00:00 Test Item Value Reference Range Interpretation Comments WBC (test code = 1001) 6.9 K/UL RBC (test code = 1002) 5.27 M/UL HEMOGLOBIN (test code = 1003) 14.1 G/DL HEMATOCRIT (test code = 1004) 40.3 % MCV (test code = 1005) 76.5 fL MCH (test code = 1006) 26.8 PG MCHC (test code = 1007) 35.0 G/DL RDW (test code = 1038) 16.3 % NEUTROPHILS (test code = 1008) 64.8 % LYMPHOCYTES (test code = 1010) 25.4 % MONOCYTES (test code = 1011) 7.2 % EOSINOPHILS (test code = 1012) 1.9 % BASOPHILS (test code = 1013) 0.4 % IMMATURE GRANULOCYTES (test 0.3 % code = 1036) NUCLEATED RBCS (test code = 0.0 /100WBC'S 1065) PLATELET COUNT (test code = 172 K/UL 1015) ABSOLUTE NEUTROPHILS (test code 4.48 K/UL = 1066) ABSOLUTE LYMPHOCYTES (test code 1.76 K/UL = 1067) ABSOLUTE MONOCYTES (test code = 0.50 K/UL 1068) ABSOLUTE EOSINOPHILS (test code 0.13 K/UL = 1040) ABSOLUTE BASOPHILS (test code = 0.03 K/UL 1069) ABS IMMATURE GRANULOCYTES (test 0.02 K/UL code = 1020) ABS NUCLEATED RBCS (test code = 0.00 K/UL 72266) PSA, [id number] 00:00:00 Test Item Value Reference Range Interpretation Comments PSA, TOTAL (test code = 2606) 0.15 NG/ML PSA, [id number] 00:00:00 Test Item Value Reference Range Interpretation Comments PSA, TOTAL (test code = 2606) 0.15 NG/ML TESTOSTERONE, FREE/TOTAL WITH [id number] 00:00:00 Test Item Value Reference Range Interpretation Comments TESTOSTERONE (test code = 2830) 187 NG/DL SEX HORM BIND GLOBULIN (test code 18.0 NMOL/L = 4933) CALC FREE TESTOSTERONE (test code 48.1 PG/ML = 44632) [id number] 00:00:00 Test Item Value Reference Range Interpretation Comments ESTRADIOL (test code = 2505) 23.7 PG/ML [id number] 00:00:00 Test Item Value Reference Range Interpretation Comments ESTRADIOL (test code = 2505) 23.7 PG/ML COMPREHENSIVE METABOLIC [id number] 00:00:00 Test Item Value Reference Range Interpretation Comments GLUCOSE (test code = 2217) 146 MG/DL BUN (test code = 2208) 18 MG/DL CREATININE (test code = 2214) 0.75 MG/DL eGFR (2020 CKD-EPI) (test 110 ML/MIN/1.73 code = 50686) CALC BUN/CREAT (test code = 24 RATIO 2235) SODIUM (test code = 2231) 141 MEQ/L POTASSIUM (test code = 2228) 4.3 MEQ/L CHLORIDE (test code = 2215) 104 MEQ/L CARBON DIOXIDE (test code = 24 MEQ/L 2205) CALCIUM (test code = 2209) 9.3 MG/DL PROTEIN, TOTAL (test code = 6.7 G/DL 2228) ALBUMIN (test code = 2201) 4.4 G/DL CALC GLOBULIN (test code = 2.3 G/DL 0) CALC A/G RATIO (test code = 1.9 RATIO 2233) BILIRUBIN, TOTAL (test code = 0.6 MG/DL 2206) ALKALINE PHOSPHATASE (test 87 U/L code = 2204) AST (test code = 2218) 12 U/L ALT (test code = 2219) 21 U/L H. PYLORI (BREATH)2022-02-08 13:46:35 Test Item Value Reference Range Interpretation Comments H. PYLORI (BREATH) NEGATIVE NEGATIVE UNLESS O THERWISE (test code = 30225) INDICATE D, ALL TESTING PERFORMED [facility] [address] [facility] [place] [address] JORGE LOZA DIRECTOR: Enzo LUNAIA NUMBER [id number] CAP ACCREDITATION N O. [id number] HEMOGLOBIN [id number] 05:07:34 Test Item Value Reference Range Interpretation Comments HEMOGLOBIN A1c (test code = 63130) 6.4 % 4.2-5.6 H LIPID [id number] 04:00:25 Test Item Value Reference Range Interpretation Comments CHOLESTEROL (test 164 MG/DL <200 code = 2210) TRIGLYCERIDES (test 185 MG/DL <150 H code = 2232) HDL CHOLESTEROL (test 32 MG/DL >39 L code = 2220) CALC LDL CHOL (test 101 MG/DL <100 H NOTE: C ALCULATED LDL code = 2237) IS BASED ON MIHAI-GONSALVES METHOD WHICHINCLUDES ADJUSTABLE TRIGLYCERIDE:VL DL CHOLESTEROL RAT IO.THIS FACTOR VARIES B Y MEASURED TRIGLY CERIDE AND NON-HDLCHOL ESTEROL CONCENTRATIONS WITH INCREASED CALCU LATED LDL SEENIN HIGH ER TRIGLYCERIDE OR LOWER NON-HDL SPECIME NS. FOR MOREINFORMATION , SEE CLIENT ANNOUNCE MENT AT [email or web address] RISK RATIO LDL/HDL 3.16 RATIO <3.55 (test code = 2238) LIPID [id number] 00:00:00 Test Item Value Reference Range Interpretation Comments CHOLESTEROL (test code = 2210) 164 MG/DL TRIGLYCERIDES (test code = 2232) 185 MG/DL HDL CHOLESTEROL (test code = 2220) 32 MG/DL CALC LDL CHOL (test code = 2237) 101 MG/DL RISK RATIO LDL/HDL (test code = 3.16 RATIO 2238) LIPID [id number] 00:00:00 Test Item Value Reference Range Interpretation Comments CHOLESTEROL (test code = 2210) 164 MG/DL TRIGLYCERIDES (test code = 2232) 185 MG/DL HDL CHOLESTEROL (test code = 2220) 32 MG/DL CALC LDL CHOL (test code = 2237) 101 MG/DL RISK RATIO LDL/HDL (test code = 3.16 RATIO 2238) HEMOGLOBIN [id number] 00:00:00 Test Item Value Reference Range Interpretation Comments HEMOGLOBIN A1c (test code = 32614) 6.4 % HEMOGLOBIN [id number] 00:00:00 Test Item Value Reference Range Interpretation Comments HEMOGLOBIN A1c (test code = 51422) 6.4 % HEMOGLOBIN [id number] 00:00:00 Test Item Value Reference Range Interpretation Comments HEMOGLOBIN A1c (test code = 41134) 6.4 % H. PYLORI (BREATH)2022-02-08 00:00:00 Test Item Value Reference Range Interpretation Comments H. PYLORI (BREATH) (test code = NEGATIVE 57492) H. PYLORI (BREATH)2022-02-08 00:00:00 Test Item Value Reference Range Interpretation Comments H. PYLORI (BREATH) (test code = NEGATIVE 23334) LIPID [id number] 00:00:00 Test Item Value Reference Range Interpretation Comments CHOLESTEROL (test code = 2210) 164 MG/DL TRIGLYCERIDES (test code = 2232) 185 MG/DL HDL CHOLESTEROL (test code = 2220) 32 MG/DL CALC LDL CHOL (test code = 2237) 101 MG/DL RISK RATIO LDL/HDL (test code = 3.16 RATIO 2238) LIPID [id number] 00:00:00 Test Item Value Reference Range Interpretation Comments CHOLESTEROL (test code = 2210) 164 MG/DL TRIGLYCERIDES (test code = 2232) 185 MG/DL HDL CHOLESTEROL (test code = 2220) 32 MG/DL CALC LDL CHOL (test code = 2237) 101 MG/DL RISK RATIO LDL/HDL (test code = 3.16 RATIO 2238) HEMOGLOBIN [id number] 00:00:00 Test Item Value Reference Range Interpretation Comments HEMOGLOBIN A1c (test code = 77044) 6.4 % HEMOGLOBIN [id number] 00:00:00 Test Item Value Reference Range Interpretation Comments HEMOGLOBIN A1c (test code = 32839) 6.4 % HEMOGLOBIN [id number] 00:00:00 Test Item Value Reference Range Interpretation Comments HEMOGLOBIN A1c (test code = 11403) 6.4 % H. PYLORI (BREATH)2022-02-08 00:00:00 Test Item Value Reference Range Interpretation Comments H. PYLORI (BREATH) (test code = NEGATIVE 31968) H. PYLORI (BREATH)2022-02-08 00:00:00 Test Item Value Reference Range Interpretation Comments H. PYLORI (BREATH) (test code = NEGATIVE 96804) LIPID [id number] 00:00:00 Test Item Value Reference Range Interpretation Comments CHOLESTEROL (test code = 2210) 164 MG/DL TRIGLYCERIDES (test code = 2232) 185 MG/DL HDL CHOLESTEROL (test code = 2220) 32 MG/DL CALC LDL CHOL (test code = 2237) 101 MG/DL RISK RATIO LDL/HDL (test code = 3.16 RATIO 2238) LIPID [id number] 00:00:00 Test Item Value Reference Range Interpretation Comments CHOLESTEROL (test code = 2210) 164 MG/DL TRIGLYCERIDES (test code = 2232) 185 MG/DL HDL CHOLESTEROL (test code = 2220) 32 MG/DL CALC LDL CHOL (test code = 2237) 101 MG/DL RISK RATIO LDL/HDL (test code = 3.16 RATIO 2238) HEMOGLOBIN [id number] 00:00:00 Test Item Value Reference Range Interpretation Comments HEMOGLOBIN A1c (test code = 18692) 6.4 % HEMOGLOBIN [id number] 00:00:00 Test Item Value Reference Range Interpretation Comments HEMOGLOBIN A1c (test code = 15664) 6.4 % HEMOGLOBIN [id number] 00:00:00 Test Item Value Reference Range Interpretation Comments HEMOGLOBIN A1c (test code = 99099) 6.4 % H. PYLORI (BREATH)2022-02-08 00:00:00 Test Item Value Reference Range Interpretation Comments H. PYLORI (BREATH) (test code = NEGATIVE 80552) H. PYLORI (BREATH)2022-02-08 00:00:00 Test Item Value Reference Range Interpretation Comments H. PYLORI (BREATH) (test code = NEGATIVE 55022) LIPID [id number] 00:00:00 Test Item Value Reference Range Interpretation Comments CHOLESTEROL (test code = 2210) 164 MG/DL TRIGLYCERIDES (test code = 2232) 185 MG/DL HDL CHOLESTEROL (test code = 2220) 32 MG/DL CALC LDL CHOL (test code = 2237) 101 MG/DL RISK RATIO LDL/HDL (test code = 3.16 RATIO 2238) HEMOGLOBIN [id number] 00:00:00 Test Item Value Reference Range Interpretation Comments HEMOGLOBIN A1c (test code = 67611) 6.4 % HEMOGLOBIN [id number] 00:00:00 Test Item Value Reference Range Interpretation Comments HEMOGLOBIN A1c (test code = 94901) 6.4 % H. PYLORI (BREATH)2022-02-08 00:00:00 Test Item Value Reference Range Interpretation Comments H. PYLORI (BREATH) (test code = NEGATIVE 25078) LIPID [id number] 00:00:00 Test Item Value Reference Range Interpretation Comments CHOLESTEROL (test code = 2210) 164 MG/DL TRIGLYCERIDES (test code = 2232) 185 MG/DL HDL CHOLESTEROL (test code = 2220) 32 MG/DL CALC LDL CHOL (test code = 2237) 101 MG/DL RISK RATIO LDL/HDL (test code = 3.16 RATIO 2238) HEMOGLOBIN [id number] 00:00:00 Test Item Value Reference Range Interpretation Comments HEMOGLOBIN A1c (test code = 83308) 6.4 % HEMOGLOBIN [id number] 00:00:00 Test Item Value Reference Range Interpretation Comments HEMOGLOBIN A1c (test code = 76747) 6.4 % H. PYLORI (BREATH)2022-02-08 00:00:00 Test Item Value Reference Range Interpretation Comments H. PYLORI (BREATH) (test code = NEGATIVE 98997) [id number] 06:01:31 Test Item Value Reference Range Interpretation Comments TESTOSTERONE (test 762 NG/DL 300-890 UNLESS O THERWISE code = 2830) INDICATED, ALL TESTING PERFORMED [facility], [id number] [place] [address] DIRECTOR: YESSI SHETH M.D. CLIA NUMBER [id number] CAP ACCREDITATION N O. [id number] 00:00:00 Test Item Value Reference Range Interpretation Comments TESTOSTERONE (test code = 2830) 762 NG/DL [id number] 00:00:00 Test Item Value Reference Range Interpretation Comments TESTOSTERONE (test code = 2830) 762 NG/DL [id number] 00:00:00 Test Item Value Reference Range Interpretation Comments TESTOSTERONE (test code = 2830) 762 NG/DL [id number] 00:00:00 Test Item Value Reference Range Interpretation Comments TESTOSTERONE (test code = 2830) 762 NG/DL [id number] 00:00:00 Test Item Value Reference Range Interpretation Comments TESTOSTERONE (test code = 2830) 762 NG/DL [id number] 00:00:00 Test Item Value Reference Range Interpretation Comments TESTOSTERONE (test code = 2830) 762 NG/DL [id number] 00:00:00 Test Item Value Reference Range Interpretation Comments TESTOSTERONE (test code = 2830) 762 NG/DL [id number] 00:00:00 Test Item Value Reference Range Interpretation Comments TESTOSTERONE (test code = 2830) 762 NG/DL COMPREHENSIVE METABOLIC [id number] 00:00:00 Test Item Value Reference Range Interpretation Comments GLUCOSE (test code = 2217) 135 MG/DL BUN (test code = 2208) 9 MG/DL CREATININE (test code = 2214) 0.71 MG/DL eGFR AMER. (test code 127 ML/MIN/1.73 = 69240) eGFR NON- AMER. (test 109 ML/MIN/1.73 code = 39395) CALC BUN/CREAT (test code = 13 RATIO 5) SODIUM (test code = 2231) 139 MEQ/L POTASSIUM (test code = 2228) 4.6 MEQ/L CHLORIDE (test code = 2215) 101 MEQ/L CARBON DIOXIDE (test code = 23 MEQ/L 2205) CALCIUM (test code = 2209) 9.9 MG/DL PROTEIN, TOTAL (test code = 6.9 G/DL 2228) ALBUMIN (test code = 2201) 4.7 G/DL CALC GLOBULIN (test code = 2.2 G/DL 0) CALC A/G RATIO (test code = 2.1 RATIO 2233) BILIRUBIN, TOTAL (test code = 0.4 MG/DL 2206) ALKALINE PHOSPHATASE (test 100 U/L code = 2204) AST (test code = 2218) 10 U/L ALT (test code = 2219) 13 U/L COMPREHENSIVE METABOLIC [id number] 00:00:00 Test Item Value Reference Range Interpretation Comments GLUCOSE (test code = 2217) 135 MG/DL BUN (test code = 2208) 9 MG/DL CREATININE (test code = 2214) 0.71 MG/DL eGFR AMER. (test code 127 ML/MIN/1.73 = 55554) eGFR NON- AMER. (test 109 ML/MIN/1.73 code = 51296) CALC BUN/CREAT (test code = 13 RATIO 223) SODIUM (test code = 2231) 139 MEQ/L POTASSIUM (test code = 2228) 4.6 MEQ/L CHLORIDE (test code = 2215) 101 MEQ/L CARBON DIOXIDE (test code = 23 MEQ/L 2205) CALCIUM (test code = 2209) 9.9 MG/DL PROTEIN, TOTAL (test code = 6.9 G/DL 2228) ALBUMIN (test code = 2201) 4.7 G/DL CALC GLOBULIN (test code = 2.2 G/DL 2239) CALC A/G RATIO (test code = 2.1 RATIO 2233) BILIRUBIN, TOTAL (test code = 0.4 MG/DL 2206) ALKALINE PHOSPHATASE (test 100 U/L code = 2203) AST (test code = 2218) 10 U/L ALT (test code = 2219) 13 U/L HEMOGLOBIN [id number] 00:00:00 Test Item Value Reference Range Interpretation Comments HEMOGLOBIN A1c (test code = 39356) 7.4 % HEMOGLOBIN [id number] 00:00:00 Test Item Value Reference Range Interpretation Comments HEMOGLOBIN A1c (test code = 81674) 7.4 % HEMOGLOBIN [id number] 00:00:00 Test Item Value Reference Range Interpretation Comments HEMOGLOBIN A1c (test code = 44826) 7.4 % [id number] 00:00:00 Test Item Value Reference Range Interpretation Comments TESTOSTERONE (test code = 2830) 483 NG/DL [id number] 00:00:00 Test Item Value Reference Range Interpretation Comments TESTOSTERONE (test code = 2830) 483 NG/DL COMPREHENSIVE METABOLIC [id number] 00:00:00 Test Item Value Reference Range Interpretation Comments GLUCOSE (test code = 2217) 135 MG/DL BUN (test code = 2208) 9 MG/DL CREATININE (test code = 2214) 0.71 MG/DL eGFR AMER. (test code 127 ML/MIN/1.73 = 02683) eGFR NON- AMER. (test 109 ML/MIN/1.73 code = 37764) CALC BUN/CREAT (test code = 13 RATIO 2235) SODIUM (test code = 2231) 139 MEQ/L POTASSIUM (test code = 2228) 4.6 MEQ/L CHLORIDE (test code = 2215) 101 MEQ/L CARBON DIOXIDE (test code = 23 MEQ/L 220) CALCIUM (test code = 2209) 9.9 MG/DL PROTEIN, TOTAL (test code = 6.9 G/DL 222) ALBUMIN (test code = 2201) 4.7 G/DL CALC GLOBULIN (test code = 2.2 G/DL 2240) CALC A/G RATIO (test code = 2.1 RATIO 2234) BILIRUBIN, TOTAL (test code = 0.4 MG/DL 2206) ALKALINE PHOSPHATASE (test 100 U/L code = 2204) AST (test code = 2218) 10 U/L ALT (test code = 2219) 13 U/L COMPREHENSIVE METABOLIC [id number] 00:00:00 Test Item Value Reference Range Interpretation Comments GLUCOSE (test code = 2217) 135 MG/DL BUN (test code = 2208) 9 MG/DL CREATININE (test code = 2214) 0.71 MG/DL eGFR AMER. (test code 127 ML/MIN/1.73 = 71984) eGFR NON- AMER. (test 109 ML/MIN/1.73 code = 46449) CALC BUN/CREAT (test code = 13 RATIO 2235) SODIUM (test code = 2231) 139 MEQ/L POTASSIUM (test code = 2228) 4.6 MEQ/L CHLORIDE (test code = 2215) 101 MEQ/L CARBON DIOXIDE (test code = 23 MEQ/L 2205) CALCIUM (test code = 2209) 9.9 MG/DL PROTEIN, TOTAL (test code = 6.9 G/DL 2228) ALBUMIN (test code = 2201) 4.7 G/DL CALC GLOBULIN (test code = 2.2 G/DL 2240) CALC A/G RATIO (test code = 2.1 RATIO 2234) BILIRUBIN, TOTAL (test code = 0.4 MG/DL 2206) ALKALINE PHOSPHATASE (test 100 U/L code = 2204) AST (test code = 2218) 10 U/L ALT (test code = 2219) 13 U/L HEMOGLOBIN [id number] 00:00:00 Test Item Value Reference Range Interpretation Comments HEMOGLOBIN A1c (test code = 82369) 7.4 % HEMOGLOBIN [id number] 00:00:00 Test Item Value Reference Range Interpretation Comments HEMOGLOBIN A1c (test code = 12842) 7.4 % HEMOGLOBIN [id number] 00:00:00 Test Item Value Reference Range Interpretation Comments HEMOGLOBIN A1c (test code = 68281) 7.4 % [id number] 00:00:00 Test Item Value Reference Range Interpretation Comments TESTOSTERONE (test code = 2830) 483 NG/DL [id number] 00:00:00 Test Item Value Reference Range Interpretation Comments TESTOSTERONE (test code = 2830) 483 NG/DL COMPREHENSIVE METABOLIC [id number] 00:00:00 Test Item Value Reference Range Interpretation Comments GLUCOSE (test code = 2217) 135 MG/DL BUN (test code = 2208) 9 MG/DL CREATININE (test code = 2214) 0.71 MG/DL eGFR AMER. (test code 127 ML/MIN/1.73 = 13460) eGFR NON- AMER. (test 109 ML/MIN/1.73 code = 71962) CALC BUN/CREAT (test code = 13 RATIO 2235) SODIUM (test code = 2231) 139 MEQ/L POTASSIUM (test code = 2228) 4.6 MEQ/L CHLORIDE (test code = 2215) 101 MEQ/L CARBON DIOXIDE (test code = 23 MEQ/L 6) CALCIUM (test code = 2209) 9.9 MG/DL PROTEIN, TOTAL (test code = 6.9 G/DL 2228) ALBUMIN (test code = 2201) 4.7 G/DL CALC GLOBULIN (test code = 2.2 G/DL 2240) CALC A/G RATIO (test code = 2.1 RATIO 4) BILIRUBIN, TOTAL (test code = 0.4 MG/DL 2206) ALKALINE PHOSPHATASE (test 100 U/L code = 2204) AST (test code = 2218) 10 U/L ALT (test code = 2219) 13 U/L COMPREHENSIVE METABOLIC [id number] 00:00:00 Test Item Value Reference Range Interpretation Comments GLUCOSE (test code = 2217) 135 MG/DL BUN (test code = 2208) 9 MG/DL CREATININE (test code = 2214) 0.71 MG/DL eGFR AMER. (test code 127 ML/MIN/1.73 = 46117) eGFR NON- AMER. (test 109 ML/MIN/1.73 code = 14871) CALC BUN/CREAT (test code = 13 RATIO 223) SODIUM (test code = 2231) 139 MEQ/L POTASSIUM (test code = 2228) 4.6 MEQ/L CHLORIDE (test code = 2215) 101 MEQ/L CARBON DIOXIDE (test code = 23 MEQ/L 2205) CALCIUM (test code = 2209) 9.9 MG/DL PROTEIN, TOTAL (test code = 6.9 G/DL 2228) ALBUMIN (test code = 2201) 4.7 G/DL CALC GLOBULIN (test code = 2.2 G/DL 2239) CALC A/G RATIO (test code = 2.1 RATIO 4) BILIRUBIN, TOTAL (test code = 0.4 MG/DL 2206) ALKALINE PHOSPHATASE (test 100 U/L code = 2203) AST (test code = 2218) 10 U/L ALT (test code = 2219) 13 U/L HEMOGLOBIN [id number] 00:00:00 Test Item Value Reference Range Interpretation Comments HEMOGLOBIN A1c (test code = 07572) 7.4 % HEMOGLOBIN [id number] 00:00:00 Test Item Value Reference Range Interpretation Comments HEMOGLOBIN A1c (test code = 98618) 7.4 % HEMOGLOBIN [id number] 00:00:00 Test Item Value Reference Range Interpretation Comments HEMOGLOBIN A1c (test code = 01611) 7.4 % [id number] 00:00:00 Test Item Value Reference Range Interpretation Comments TESTOSTERONE (test code = 2830) 483 NG/DL [id number] 00:00:00 Test Item Value Reference Range Interpretation Comments TESTOSTERONE (test code = 2830) 483 NG/DL COMPREHENSIVE METABOLIC [id number] 00:00:00 Test Item Value Reference Range Interpretation Comments GLUCOSE (test code = 2217) 135 MG/DL BUN (test code = 2208) 9 MG/DL CREATININE (test code = 2214) 0.71 MG/DL eGFR AMER. (test code 127 ML/MIN/1.73 = 76013) eGFR NON- AMER. (test 109 ML/MIN/1.73 code = 48876) CALC BUN/CREAT (test code = 13 RATIO 2235) SODIUM (test code = 2231) 139 MEQ/L POTASSIUM (test code = 2228) 4.6 MEQ/L CHLORIDE (test code = 2215) 101 MEQ/L CARBON DIOXIDE (test code = 23 MEQ/L 2205) CALCIUM (test code = 2209) 9.9 MG/DL PROTEIN, TOTAL (test code = 6.9 G/DL 2228) ALBUMIN (test code = 2201) 4.7 G/DL CALC GLOBULIN (test code = 2.2 G/DL 2240) CALC A/G RATIO (test code = 2.1 RATIO 2234) BILIRUBIN, TOTAL (test code = 0.4 MG/DL 2206) ALKALINE PHOSPHATASE (test 100 U/L code = 2204) AST (test code = 2218) 10 U/L ALT (test code = 2219) 13 U/L HEMOGLOBIN [id number] 00:00:00 Test Item Value Reference Range Interpretation Comments HEMOGLOBIN A1c (test code = 79547) 7.4 % HEMOGLOBIN [id number] 00:00:00 Test Item Value Reference Range Interpretation Comments HEMOGLOBIN A1c (test code = 81830) 7.4 % [id number] 00:00:00 Test Item Value Reference Range Interpretation Comments TESTOSTERONE (test code = 2830) 483 NG/DL COMPREHENSIVE METABOLIC [id number] 00:00:00 Test Item Value Reference Range Interpretation Comments GLUCOSE (test code = 2217) 135 MG/DL BUN (test code = 2208) 9 MG/DL CREATININE (test code = 2214) 0.71 MG/DL eGFR AMER. (test code 127 ML/MIN/1.73 = 51480) eGFR NON- AMER. (test 109 ML/MIN/1.73 code = 83678) CALC BUN/CREAT (test code = 13 RATIO 2234) SODIUM (test code = 2231) 139 MEQ/L POTASSIUM (test code = 2228) 4.6 MEQ/L CHLORIDE (test code = 2215) 101 MEQ/L CARBON DIOXIDE (test code = 23 MEQ/L 2205) CALCIUM (test code = 2209) 9.9 MG/DL PROTEIN, TOTAL (test code = 6.9 G/DL 2228) ALBUMIN (test code = 2201) 4.7 G/DL CALC GLOBULIN (test code = 2.2 G/DL 2240) CALC A/G RATIO (test code = 2.1 RATIO 2234) BILIRUBIN, TOTAL (test code = 0.4 MG/DL 2206) ALKALINE PHOSPHATASE (test 100 U/L code = 2204) AST (test code = 2218) 10 U/L ALT (test code = 2219) 13 U/L HEMOGLOBIN [id number] 00:00:00 Test Item Value Reference Range Interpretation Comments HEMOGLOBIN A1c (test code = 66556) 7.4 % HEMOGLOBIN [id number] 00:00:00 Test Item Value Reference Range Interpretation Comments HEMOGLOBIN A1c (test code = 39715) 7.4 % [id number] 00:00:00 Test Item Value Reference Range Interpretation Comments TESTOSTERONE (test code = 2830) 483 NG/DL CBC W/AUTO [id number] 00:00:00 Test Item Value Reference Range Interpretation Comments WBC (test code = 1001) 6.1 K/UL RBC (test code = 1002) 5.22 M/UL HEMOGLOBIN (test code = 1003) 14.7 G/DL HEMATOCRIT (test code = 1004) 42.0 % MCV (test code = 1005) 80.5 fL MCH (test code = 1006) 28.2 PG MCHC (test code = 1007) 35.0 G/DL RDW (test code = 1038) 13.8 % NEUTROPHILS (test code = 1008) 58.1 % LYMPHOCYTES (test code = 1010) 33.2 % MONOCYTES (test code = 1011) 6.4 % EOSINOPHILS (test code = 1012) 1.5 % BASOPHILS (test code = 1013) 0.5 % IMMATURE GRANULOCYTES (test 0.3 % code = 1036) NUCLEATED RBCS (test code = 0.0 /100WBC'S 1065) PLATELET COUNT (test code = 183 K/UL 1015) ABSOLUTE NEUTROPHILS (test code 3.52 K/UL = 1066) ABSOLUTE LYMPHOCYTES (test code 2.01 K/UL = 1067) ABSOLUTE MONOCYTES (test code = 0.39 K/UL 1068) ABSOLUTE EOSINOPHILS (test code 0.09 K/UL = 1040) ABSOLUTE BASOPHILS (test code = 0.03 K/UL 1069) ABS IMMATURE GRANULOCYTES (test 0.02 K/UL code = 1020) ABS NUCLEATED RBCS (test code = 0.00 K/UL 17332) CBC W/AUTO [id number] 00:00:00 Test Item Value Reference Range Interpretation Comments WBC (test code = 1001) 6.1 K/UL RBC (test code = 1002) 5.22 M/UL HEMOGLOBIN (test code = 1003) 14.7 G/DL HEMATOCRIT (test code = 1004) 42.0 % MCV (test code = 1005) 80.5 fL MCH (test code = 1006) 28.2 PG MCHC (test code = 1007) 35.0 G/DL RDW (test code = 1038) 13.8 % NEUTROPHILS (test code = 1008) 58.1 % LYMPHOCYTES (test code = 1010) 33.2 % MONOCYTES (test code = 1011) 6.4 % EOSINOPHILS (test code = 1012) 1.5 % BASOPHILS (test code = 1013) 0.5 % IMMATURE GRANULOCYTES (test 0.3 % code = 1036) NUCLEATED RBCS (test code = 0.0 /100WBC'S 1065) PLATELET COUNT (test code = 183 K/UL 1015) ABSOLUTE NEUTROPHILS (test code 3.52 K/UL = 1066) ABSOLUTE LYMPHOCYTES (test code 2.01 K/UL = 1067) ABSOLUTE MONOCYTES (test code = 0.39 K/UL 1068) ABSOLUTE EOSINOPHILS (test code 0.09 K/UL = 1040) ABSOLUTE BASOPHILS (test code = 0.03 K/UL 1069) ABS IMMATURE GRANULOCYTES (test 0.02 K/UL code = 1020) ABS NUCLEATED RBCS (test code = 0.00 K/UL 38564) CBC W/AUTO [id number] 00:00:00 Test Item Value Reference Range Interpretation Comments WBC (test code = 1001) 6.1 K/UL RBC (test code = 1002) 5.22 M/UL HEMOGLOBIN (test code = 1003) 14.7 G/DL HEMATOCRIT (test code = 1004) 42.0 % MCV (test code = 1005) 80.5 fL MCH (test code = 1006) 28.2 PG MCHC (test code = 1007) 35.0 G/DL RDW (test code = 1038) 13.8 % NEUTROPHILS (test code = 1008) 58.1 % LYMPHOCYTES (test code = 1010) 33.2 % MONOCYTES (test code = 1011) 6.4 % EOSINOPHILS (test code = 1012) 1.5 % BASOPHILS (test code = 1013) 0.5 % IMMATURE GRANULOCYTES (test 0.3 % code = 1036) NUCLEATED RBCS (test code = 0.0 /100WBC'S 1065) PLATELET COUNT (test code = 183 K/UL 1015) ABSOLUTE NEUTROPHILS (test code 3.52 K/UL = 1066) ABSOLUTE LYMPHOCYTES (test code 2.01 K/UL = 1067) ABSOLUTE MONOCYTES (test code = 0.39 K/UL 1068) ABSOLUTE EOSINOPHILS (test code 0.09 K/UL = 1040) ABSOLUTE BASOPHILS (test code = 0.03 K/UL 1069) ABS IMMATURE GRANULOCYTES (test 0.02 K/UL code = 1020) ABS NUCLEATED RBCS (test code = 0.00 K/UL 89997) [id number] 00:00:00 Test Item Value Reference Range Interpretation Comments TESTOSTERONE (test code = 2830) 540 NG/DL [id number] 00:00:00 Test Item Value Reference Range Interpretation Comments TESTOSTERONE (test code = 2830) 540 NG/DL PSA, [id number] 00:00:00 Test Item Value Reference Range Interpretation Comments PSA, TOTAL (test code = 2606) 0.26 NG/ML PSA, [id number] 00:00:00 Test Item Value Reference Range Interpretation Comments PSA, TOTAL (test code = 2606) 0.26 NG/ML PSA, [id number] 00:00:00 Test Item Value Reference Range Interpretation Comments PSA, TOTAL (test code = 2606) 0.26 NG/ML CBC W/AUTO [id number] 00:00:00 Test Item Value Reference Range Interpretation Comments WBC (test code = 1001) 6.1 K/UL RBC (test code = 1002) 5.22 M/UL HEMOGLOBIN (test code = 1003) 14.7 G/DL HEMATOCRIT (test code = 1004) 42.0 % MCV (test code = 1005) 80.5 fL MCH (test code = 1006) 28.2 PG MCHC (test code = 1007) 35.0 G/DL RDW (test code = 1038) 13.8 % NEUTROPHILS (test code = 1008) 58.1 % LYMPHOCYTES (test code = 1010) 33.2 % MONOCYTES (test code = 1011) 6.4 % EOSINOPHILS (test code = 1012) 1.5 % BASOPHILS (test code = 1013) 0.5 % IMMATURE GRANULOCYTES (test 0.3 % code = 1036) NUCLEATED RBCS (test code = 0.0 /100WBC'S 1065) PLATELET COUNT (test code = 183 K/UL 1015) ABSOLUTE NEUTROPHILS (test code 3.52 K/UL = 1066) ABSOLUTE LYMPHOCYTES (test code 2.01 K/UL = 1067) ABSOLUTE MONOCYTES (test code = 0.39 K/UL 1068) ABSOLUTE EOSINOPHILS (test code 0.09 K/UL = 1040) ABSOLUTE BASOPHILS (test code = 0.03 K/UL 1069) ABS IMMATURE GRANULOCYTES (test 0.02 K/UL code = 1020) ABS NUCLEATED RBCS (test code = 0.00 K/UL 95930) CBC W/AUTO [id number] 00:00:00 Test Item Value Reference Range Interpretation Comments WBC (test code = 1001) 6.1 K/UL RBC (test code = 1002) 5.22 M/UL HEMOGLOBIN (test code = 1003) 14.7 G/DL HEMATOCRIT (test code = 1004) 42.0 % MCV (test code = 1005) 80.5 fL MCH (test code = 1006) 28.2 PG MCHC (test code = 1007) 35.0 G/DL RDW (test code = 1038) 13.8 % NEUTROPHILS (test code = 1008) 58.1 % LYMPHOCYTES (test code = 1010) 33.2 % MONOCYTES (test code = 1011) 6.4 % EOSINOPHILS (test code = 1012) 1.5 % BASOPHILS (test code = 1013) 0.5 % IMMATURE GRANULOCYTES (test 0.3 % code = 1036) NUCLEATED RBCS (test code = 0.0 /100WBC'S 1065) PLATELET COUNT (test code = 183 K/UL 1015) ABSOLUTE NEUTROPHILS (test code 3.52 K/UL = 1066) ABSOLUTE LYMPHOCYTES (test code 2.01 K/UL = 1067) ABSOLUTE MONOCYTES (test code = 0.39 K/UL 1068) ABSOLUTE EOSINOPHILS (test code 0.09 K/UL = 1040) ABSOLUTE BASOPHILS (test code = 0.03 K/UL 1069) ABS IMMATURE GRANULOCYTES (test 0.02 K/UL code = 1020) ABS NUCLEATED RBCS (test code = 0.00 K/UL 14144) CBC W/AUTO [id number] 00:00:00 Test Item Value Reference Range Interpretation Comments WBC (test code = 1001) 6.1 K/UL RBC (test code = 1002) 5.22 M/UL HEMOGLOBIN (test code = 1003) 14.7 G/DL HEMATOCRIT (test code = 1004) 42.0 % MCV (test code = 1005) 80.5 fL MCH (test code = 1006) 28.2 PG MCHC (test code = 1007) 35.0 G/DL RDW (test code = 1038) 13.8 % NEUTROPHILS (test code = 1008) 58.1 % LYMPHOCYTES (test code = 1010) 33.2 % MONOCYTES (test code = 1011) 6.4 % EOSINOPHILS (test code = 1012) 1.5 % BASOPHILS (test code = 1013) 0.5 % IMMATURE GRANULOCYTES (test 0.3 % code = 1036) NUCLEATED RBCS (test code = 0.0 /100WBC'S 1065) PLATELET COUNT (test code = 183 K/UL 1015) ABSOLUTE NEUTROPHILS (test code 3.52 K/UL = 1066) ABSOLUTE LYMPHOCYTES (test code 2.01 K/UL = 1067) ABSOLUTE MONOCYTES (test code = 0.39 K/UL 1068) ABSOLUTE EOSINOPHILS (test code 0.09 K/UL = 1040) ABSOLUTE BASOPHILS (test code = 0.03 K/UL 1069) ABS IMMATURE GRANULOCYTES (test 0.02 K/UL code = 1020) ABS NUCLEATED RBCS (test code = 0.00 K/UL 50882) [id number] 00:00:00 Test Item Value Reference Range Interpretation Comments TESTOSTERONE (test code = 2830) 540 NG/DL [id number] 00:00:00 Test Item Value Reference Range Interpretation Comments TESTOSTERONE (test code = 2830) 540 NG/DL PSA, [id number] 00:00:00 Test Item Value Reference Range Interpretation Comments PSA, TOTAL (test code = 2606) 0.26 NG/ML PSA, [id number] 00:00:00 Test Item Value Reference Range Interpretation Comments PSA, TOTAL (test code = 2606) 0.26 NG/ML PSA, [id number] 00:00:00 Test Item Value Reference Range Interpretation Comments PSA, TOTAL (test code = 2606) 0.26 NG/ML CBC W/AUTO [id number] 00:00:00 Test Item Value Reference Range Interpretation Comments WBC (test code = 1001) 6.1 K/UL RBC (test code = 1002) 5.22 M/UL HEMOGLOBIN (test code = 1003) 14.7 G/DL HEMATOCRIT (test code = 1004) 42.0 % MCV (test code = 1005) 80.5 fL MCH (test code = 1006) 28.2 PG MCHC (test code = 1007) 35.0 G/DL RDW (test code = 1038) 13.8 % NEUTROPHILS (test code = 1008) 58.1 % LYMPHOCYTES (test code = 1010) 33.2 % MONOCYTES (test code = 1011) 6.4 % EOSINOPHILS (test code = 1012) 1.5 % BASOPHILS (test code = 1013) 0.5 % IMMATURE GRANULOCYTES (test 0.3 % code = 1036) NUCLEATED RBCS (test code = 0.0 /100WBC'S 1065) PLATELET COUNT (test code = 183 K/UL 1015) ABSOLUTE NEUTROPHILS (test code 3.52 K/UL = 1066) ABSOLUTE LYMPHOCYTES (test code 2.01 K/UL = 1067) ABSOLUTE MONOCYTES (test code = 0.39 K/UL 1068) ABSOLUTE EOSINOPHILS (test code 0.09 K/UL = 1040) ABSOLUTE BASOPHILS (test code = 0.03 K/UL 1069) ABS IMMATURE GRANULOCYTES (test 0.02 K/UL code = 1020) ABS NUCLEATED RBCS (test code = 0.00 K/UL 17813) CBC W/AUTO [id number] 00:00:00 Test Item Value Reference Range Interpretation Comments WBC (test code = 1001) 6.1 K/UL RBC (test code = 1002) 5.22 M/UL HEMOGLOBIN (test code = 1003) 14.7 G/DL HEMATOCRIT (test code = 1004) 42.0 % MCV (test code = 1005) 80.5 fL MCH (test code = 1006) 28.2 PG MCHC (test code = 1007) 35.0 G/DL RDW (test code = 1038) 13.8 % NEUTROPHILS (test code = 1008) 58.1 % LYMPHOCYTES (test code = 1010) 33.2 % MONOCYTES (test code = 1011) 6.4 % EOSINOPHILS (test code = 1012) 1.5 % BASOPHILS (test code = 1013) 0.5 % IMMATURE GRANULOCYTES (test 0.3 % code = 1036) NUCLEATED RBCS (test code = 0.0 /100WBC'S 1065) PLATELET COUNT (test code = 183 K/UL 1015) ABSOLUTE NEUTROPHILS (test code 3.52 K/UL = 1066) ABSOLUTE LYMPHOCYTES (test code 2.01 K/UL = 1067) ABSOLUTE MONOCYTES (test code = 0.39 K/UL 1068) ABSOLUTE EOSINOPHILS (test code 0.09 K/UL = 1040) ABSOLUTE BASOPHILS (test code = 0.03 K/UL 1069) ABS IMMATURE GRANULOCYTES (test 0.02 K/UL code = 1020) ABS NUCLEATED RBCS (test code = 0.00 K/UL 60804) CBC W/AUTO [id number] 00:00:00 Test Item Value Reference Range Interpretation Comments WBC (test code = 1001) 6.1 K/UL RBC (test code = 1002) 5.22 M/UL HEMOGLOBIN (test code = 1003) 14.7 G/DL HEMATOCRIT (test code = 1004) 42.0 % MCV (test code = 1005) 80.5 fL MCH (test code = 1006) 28.2 PG MCHC (test code = 1007) 35.0 G/DL RDW (test code = 1038) 13.8 % NEUTROPHILS (test code = 1008) 58.1 % LYMPHOCYTES (test code = 1010) 33.2 % MONOCYTES (test code = 1011) 6.4 % EOSINOPHILS (test code = 1012) 1.5 % BASOPHILS (test code = 1013) 0.5 % IMMATURE GRANULOCYTES (test 0.3 % code = 1036) NUCLEATED RBCS (test code = 0.0 /100WBC'S 1065) PLATELET COUNT (test code = 183 K/UL 1015) ABSOLUTE NEUTROPHILS (test code 3.52 K/UL = 1066) ABSOLUTE LYMPHOCYTES (test code 2.01 K/UL = 1067) ABSOLUTE MONOCYTES (test code = 0.39 K/UL 1068) ABSOLUTE EOSINOPHILS (test code 0.09 K/UL = 1040) ABSOLUTE BASOPHILS (test code = 0.03 K/UL 1069) ABS IMMATURE GRANULOCYTES (test 0.02 K/UL code = 1020) ABS NUCLEATED RBCS (test code = 0.00 K/UL 77007) [id number] 00:00:00 Test Item Value Reference Range Interpretation Comments TESTOSTERONE (test code = 2830) 540 NG/DL [id number] 00:00:00 Test Item Value Reference Range Interpretation Comments TESTOSTERONE (test code = 2830) 540 NG/DL PSA, [id number] 00:00:00 Test Item Value Reference Range Interpretation Comments PSA, TOTAL (test code = 2606) 0.26 NG/ML PSA, [id number] 00:00:00 Test Item Value Reference Range Interpretation Comments PSA, TOTAL (test code = 2606) 0.26 NG/ML PSA, [id number] 00:00:00 Test Item Value Reference Range Interpretation Comments PSA, TOTAL (test code = 2606) 0.26 NG/ML CBC W/AUTO [id number] 00:00:00 Test Item Value Reference Range Interpretation Comments WBC (test code = 1001) 6.1 K/UL RBC (test code = 1002) 5.22 M/UL HEMOGLOBIN (test code = 1003) 14.7 G/DL HEMATOCRIT (test code = 1004) 42.0 % MCV (test code = 1005) 80.5 fL MCH (test code = 1006) 28.2 PG MCHC (test code = 1007) 35.0 G/DL RDW (test code = 1038) 13.8 % NEUTROPHILS (test code = 1008) 58.1 % LYMPHOCYTES (test code = 1010) 33.2 % MONOCYTES (test code = 1011) 6.4 % EOSINOPHILS (test code = 1012) 1.5 % BASOPHILS (test code = 1013) 0.5 % IMMATURE GRANULOCYTES (test 0.3 % code = 1036) NUCLEATED RBCS (test code = 0.0 /100WBC'S 1065) PLATELET COUNT (test code = 183 K/UL 1015) ABSOLUTE NEUTROPHILS (test code 3.52 K/UL = 1066) ABSOLUTE LYMPHOCYTES (test code 2.01 K/UL = 1067) ABSOLUTE MONOCYTES (test code = 0.39 K/UL 1068) ABSOLUTE EOSINOPHILS (test code 0.09 K/UL = 1040) ABSOLUTE BASOPHILS (test code = 0.03 K/UL 1069) ABS IMMATURE GRANULOCYTES (test 0.02 K/UL code = 1020) ABS NUCLEATED RBCS (test code = 0.00 K/UL 43790) CBC W/AUTO [id number] 00:00:00 Test Item Value Reference Range Interpretation Comments WBC (test code = 1001) 6.1 K/UL RBC (test code = 1002) 5.22 M/UL HEMOGLOBIN (test code = 1003) 14.7 G/DL HEMATOCRIT (test code = 1004) 42.0 % MCV (test code = 1005) 80.5 fL MCH (test code = 1006) 28.2 PG MCHC (test code = 1007) 35.0 G/DL RDW (test code = 1038) 13.8 % NEUTROPHILS (test code = 1008) 58.1 % LYMPHOCYTES (test code = 1010) 33.2 % MONOCYTES (test code = 1011) 6.4 % EOSINOPHILS (test code = 1012) 1.5 % BASOPHILS (test code = 1013) 0.5 % IMMATURE GRANULOCYTES (test 0.3 % code = 1036) NUCLEATED RBCS (test code = 0.0 /100WBC'S 1065) PLATELET COUNT (test code = 183 K/UL 1015) ABSOLUTE NEUTROPHILS (test code 3.52 K/UL = 1066) ABSOLUTE LYMPHOCYTES (test code 2.01 K/UL = 1067) ABSOLUTE MONOCYTES (test code = 0.39 K/UL 1068) ABSOLUTE EOSINOPHILS (test code 0.09 K/UL = 1040) ABSOLUTE BASOPHILS (test code = 0.03 K/UL 1069) ABS IMMATURE GRANULOCYTES (test 0.02 K/UL code = 1020) ABS NUCLEATED RBCS (test code = 0.00 K/UL 06352) [id number] 00:00:00 Test Item Value Reference Range Interpretation Comments TESTOSTERONE (test code = 2830) 540 NG/DL PSA, [id number] 00:00:00 Test Item Value Reference Range Interpretation Comments PSA, TOTAL (test code = 2606) 0.26 NG/ML PSA, [id number] 00:00:00 Test Item Value Reference Range Interpretation Comments PSA, TOTAL (test code = 2606) 0.26 NG/ML CBC W/AUTO [id number] 00:00:00 Test Item Value Reference Range Interpretation Comments WBC (test code = 1001) 6.1 K/UL RBC (test code = 1002) 5.22 M/UL HEMOGLOBIN (test code = 1003) 14.7 G/DL HEMATOCRIT (test code = 1004) 42.0 % MCV (test code = 1005) 80.5 fL MCH (test code = 1006) 28.2 PG MCHC (test code = 1007) 35.0 G/DL RDW (test code = 1038) 13.8 % NEUTROPHILS (test code = 1008) 58.1 % LYMPHOCYTES (test code = 1010) 33.2 % MONOCYTES (test code = 1011) 6.4 % EOSINOPHILS (test code = 1012) 1.5 % BASOPHILS (test code = 1013) 0.5 % IMMATURE GRANULOCYTES (test 0.3 % code = 1036) NUCLEATED RBCS (test code = 0.0 /100WBC'S 1065) PLATELET COUNT (test code = 183 K/UL 1015) ABSOLUTE NEUTROPHILS (test code 3.52 K/UL = 1066) ABSOLUTE LYMPHOCYTES (test code 2.01 K/UL = 1067) ABSOLUTE MONOCYTES (test code = 0.39 K/UL 1068) ABSOLUTE EOSINOPHILS (test code 0.09 K/UL = 1040) ABSOLUTE BASOPHILS (test code = 0.03 K/UL 1069) ABS IMMATURE GRANULOCYTES (test 0.02 K/UL code = 1020) ABS NUCLEATED RBCS (test code = 0.00 K/UL 65570) CBC W/AUTO [id number] 00:00:00 Test Item Value Reference Range Interpretation Comments WBC (test code = 1001) 6.1 K/UL RBC (test code = 1002) 5.22 M/UL HEMOGLOBIN (test code = 1003) 14.7 G/DL HEMATOCRIT (test code = 1004) 42.0 % MCV (test code = 1005) 80.5 fL MCH (test code = 1006) 28.2 PG MCHC (test code = 1007) 35.0 G/DL RDW (test code = 1038) 13.8 % NEUTROPHILS (test code = 1008) 58.1 % LYMPHOCYTES (test code = 1010) 33.2 % MONOCYTES (test code = 1011) 6.4 % EOSINOPHILS (test code = 1012) 1.5 % BASOPHILS (test code = 1013) 0.5 % IMMATURE GRANULOCYTES (test 0.3 % code = 1036) NUCLEATED RBCS (test code = 0.0 /100WBC'S 1065) PLATELET COUNT (test code = 183 K/UL 1015) ABSOLUTE NEUTROPHILS (test code 3.52 K/UL = 1066) ABSOLUTE LYMPHOCYTES (test code 2.01 K/UL = 1067) ABSOLUTE MONOCYTES (test code = 0.39 K/UL 1068) ABSOLUTE EOSINOPHILS (test code 0.09 K/UL = 1040) ABSOLUTE BASOPHILS (test code = 0.03 K/UL 1069) ABS IMMATURE GRANULOCYTES (test 0.02 K/UL code = 1020) ABS NUCLEATED RBCS (test code = 0.00 K/UL 59346) [id number] 00:00:00 Test Item Value Reference Range Interpretation Comments TESTOSTERONE (test code = 2830) 540 NG/DL PSA, [id number] 00:00:00 Test Item Value Reference Range Interpretation Comments PSA, TOTAL (test code = 2606) 0.26 NG/ML PSA, [id number] 00:00:00 Test Item Value Reference Range Interpretation Comments PSA, TOTAL (test code = 2606) 0.26 NG/ML BRAIN NATRIURETIC PEPTIDE [ADDED]2021-09-10 00:00:00 Test Item Value Reference Range Interpretation Comments BRAIN NATRIURETIC PEPTIDE (test code 50 PG/ML = 59171) BRAIN NATRIURETIC PEPTIDE [ADDED]2021-09-10 00:00:00 Test Item Value Reference Range Interpretation Comments BRAIN NATRIURETIC PEPTIDE (test code 50 PG/ML = 35174) BRAIN NATRIURETIC PEPTIDE [ADDED]2021-09-10 00:00:00 Test Item Value Reference Range Interpretation Comments BRAIN NATRIURETIC PEPTIDE (test code 50 PG/ML = 27582) BRAIN NATRIURETIC PEPTIDE [ADDED]2021-09-10 00:00:00 Test Item Value Reference Range Interpretation Comments BRAIN NATRIURETIC PEPTIDE (test code 50 PG/ML = 79466) BRAIN NATRIURETIC PEPTIDE [ADDED]2021-09-10 00:00:00 Test Item Value Reference Range Interpretation Comments BRAIN NATRIURETIC PEPTIDE (test code 50 PG/ML = 91134) COMPREHENSIVE METABOLIC [id number] 00:00:00 Test Item Value Reference Range Interpretation Comments GLUCOSE (test code = 2217) 189 MG/DL BUN (test code = 2208) 9 MG/DL CREATININE (test code = 2214) 0.98 MG/DL eGFR AMER. (test code 104 ML/MIN/1.73 = 33501) eGFR NON- AMER. (test 90 ML/MIN/1.73 code = 73176) CALC BUN/CREAT (test code = 9 RATIO 2235) SODIUM (test code = 2231) 143 MEQ/L POTASSIUM (test code = 2228) 4.5 MEQ/L CHLORIDE (test code = 2215) 105 MEQ/L CARBON DIOXIDE (test code = 22 MEQ/L 2206) CALCIUM (test code = 2209) 9.1 MG/DL PROTEIN, TOTAL (test code = 6.6 G/DL 2228) ALBUMIN (test code = 2201) 4.3 G/DL CALC GLOBULIN (test code = 2.3 G/DL 2240) CALC A/G RATIO (test code = 1.9 RATIO 2234) BILIRUBIN, TOTAL (test code = 0.4 MG/DL 2206) ALKALINE PHOSPHATASE (test 111 U/L code = 2204) AST (test code = 2218) 7 U/L ALT (test code = 2219) 15 U/L COMPREHENSIVE METABOLIC [id number] 00:00:00 Test Item Value Reference Range Interpretation Comments GLUCOSE (test code = 2217) 189 MG/DL BUN (test code = 2208) 9 MG/DL CREATININE (test code = 2214) 0.98 MG/DL eGFR AMER. (test code 104 ML/MIN/1.73 = 84855) eGFR NON- AMER. (test 90 ML/MIN/1.73 code = 94385) CALC BUN/CREAT (test code = 9 RATIO 2235) SODIUM (test code = 2231) 143 MEQ/L POTASSIUM (test code = 2228) 4.5 MEQ/L CHLORIDE (test code = 2215) 105 MEQ/L CARBON DIOXIDE (test code = 22 MEQ/L 2206) CALCIUM (test code = 2209) 9.1 MG/DL PROTEIN, TOTAL (test code = 6.6 G/DL 2228) ALBUMIN (test code = 2201) 4.3 G/DL CALC GLOBULIN (test code = 2.3 G/DL 2240) CALC A/G RATIO (test code = 1.9 RATIO 2234) BILIRUBIN, TOTAL (test code = 0.4 MG/DL 2206) ALKALINE PHOSPHATASE (test 111 U/L code = 2204) AST (test code = 2218) 7 U/L ALT (test code = 2219) 15 U/L COMPREHENSIVE METABOLIC [id number] 00:00:00 Test Item Value Reference Range Interpretation Comments GLUCOSE (test code = 2217) 189 MG/DL BUN (test code = 2208) 9 MG/DL CREATININE (test code = 2214) 0.98 MG/DL eGFR AMER. (test code 104 ML/MIN/1.73 = 54402) eGFR NON- AMER. (test 90 ML/MIN/1.73 code = 40332) CALC BUN/CREAT (test code = 9 RATIO 2235) SODIUM (test code = 2231) 143 MEQ/L POTASSIUM (test code = 2228) 4.5 MEQ/L CHLORIDE (test code = 2215) 105 MEQ/L CARBON DIOXIDE (test code = 22 MEQ/L 2206) CALCIUM (test code = 2209) 9.1 MG/DL PROTEIN, TOTAL (test code = 6.6 G/DL 2228) ALBUMIN (test code = 2201) 4.3 G/DL CALC GLOBULIN (test code = 2.3 G/DL 2239) CALC A/G RATIO (test code = 1.9 RATIO 2234) BILIRUBIN, TOTAL (test code = 0.4 MG/DL 2206) ALKALINE PHOSPHATASE (test 111 U/L code = 2204) AST (test code = 2218) 7 U/L ALT (test code = 2219) 15 U/L COMPREHENSIVE METABOLIC [id number] 00:00:00 Test Item Value Reference Range Interpretation Comments GLUCOSE (test code = 2217) 189 MG/DL BUN (test code = 2208) 9 MG/DL CREATININE (test code = 2214) 0.98 MG/DL eGFR AMER. (test code 104 ML/MIN/1.73 = 08108) eGFR NON- AMER. (test 90 ML/MIN/1.73 code = 77321) CALC BUN/CREAT (test code = 9 RATIO 2235) SODIUM (test code = 2231) 143 MEQ/L POTASSIUM (test code = 2228) 4.5 MEQ/L CHLORIDE (test code = 2215) 105 MEQ/L CARBON DIOXIDE (test code = 22 MEQ/L 2206) CALCIUM (test code = 2209) 9.1 MG/DL PROTEIN, TOTAL (test code = 6.6 G/DL 2229) ALBUMIN (test code = 2201) 4.3 G/DL CALC GLOBULIN (test code = 2.3 G/DL 2240) CALC A/G RATIO (test code = 1.9 RATIO 2234) BILIRUBIN, TOTAL (test code = 0.4 MG/DL 2207) ALKALINE PHOSPHATASE (test 111 U/L code = 2204) AST (test code = 2218) 7 U/L ALT (test code = 2219) 15 U/L COMPREHENSIVE METABOLIC [id number] 00:00:00 Test Item Value Reference Range Interpretation Comments GLUCOSE (test code = 2217) 189 MG/DL BUN (test code = 2208) 9 MG/DL CREATININE (test code = 2214) 0.98 MG/DL eGFR AMER. (test code 104 ML/MIN/1.73 = 54586) eGFR NON- AMER. (test 90 ML/MIN/1.73 code = 39950) CALC BUN/CREAT (test code = 9 RATIO 2235) SODIUM (test code = 2231) 143 MEQ/L POTASSIUM (test code = 2228) 4.5 MEQ/L CHLORIDE (test code = 2215) 105 MEQ/L CARBON DIOXIDE (test code = 22 MEQ/L 2206) CALCIUM (test code = 2209) 9.1 MG/DL PROTEIN, TOTAL (test code = 6.6 G/DL 2229) ALBUMIN (test code = 2201) 4.3 G/DL CALC GLOBULIN (test code = 2.3 G/DL 2240) CALC A/G RATIO (test code = 1.9 RATIO 2234) BILIRUBIN, TOTAL (test code = 0.4 MG/DL 2207) ALKALINE PHOSPHATASE (test 111 U/L code = 2204) AST (test code = 2218) 7 U/L ALT (test code = 2219) 15 U/L COMPREHENSIVE METABOLIC [id number] 00:00:00 Test Item Value Reference Range Interpretation Comments GLUCOSE (test code = 2217) 189 MG/DL BUN (test code = 2208) 9 MG/DL CREATININE (test code = 2214) 0.98 MG/DL eGFR AMER. (test code 104 ML/MIN/1.73 = 14558) eGFR NON- AMER. (test 90 ML/MIN/1.73 code = 43544) CALC BUN/CREAT (test code = 9 RATIO 2235) SODIUM (test code = 2231) 143 MEQ/L POTASSIUM (test code = 2228) 4.5 MEQ/L CHLORIDE (test code = 2215) 105 MEQ/L CARBON DIOXIDE (test code = 22 MEQ/L 2206) CALCIUM (test code = 2209) 9.1 MG/DL PROTEIN, TOTAL (test code = 6.6 G/DL 222) ALBUMIN (test code = 2201) 4.3 G/DL CALC GLOBULIN (test code = 2.3 G/DL 2240) CALC A/G RATIO (test code = 1.9 RATIO 2234) BILIRUBIN, TOTAL (test code = 0.4 MG/DL 2206) ALKALINE PHOSPHATASE (test 111 U/L code = 2204) AST (test code = 2218) 7 U/L ALT (test code = 2219) 15 U/L COMPREHENSIVE METABOLIC [id number] 00:00:00 Test Item Value Reference Range Interpretation Comments GLUCOSE (test code = 2217) 189 MG/DL BUN (test code = 2208) 9 MG/DL CREATININE (test code = 2214) 0.98 MG/DL eGFR AMER. (test code 104 ML/MIN/1.73 = 84905) eGFR NON- AMER. (test 90 ML/MIN/1.73 code = 76775) CALC BUN/CREAT (test code = 9 RATIO 2235) SODIUM (test code = 2231) 143 MEQ/L POTASSIUM (test code = 2228) 4.5 MEQ/L CHLORIDE (test code = 2215) 105 MEQ/L CARBON DIOXIDE (test code = 22 MEQ/L 2206) CALCIUM (test code = 2209) 9.1 MG/DL PROTEIN, TOTAL (test code = 6.6 G/DL 2228) ALBUMIN (test code = 2201) 4.3 G/DL CALC GLOBULIN (test code = 2.3 G/DL 2240) CALC A/G RATIO (test code = 1.9 RATIO 2234) BILIRUBIN, TOTAL (test code = 0.4 MG/DL 2206) ALKALINE PHOSPHATASE (test 111 U/L code = 2204) AST (test code = 2218) 7 U/L ALT (test code = 2219) 15 U/L COMPREHENSIVE METABOLIC [id number] 00:00:00 Test Item Value Reference Range Interpretation Comments GLUCOSE (test code = 2217) 189 MG/DL BUN (test code = 2208) 9 MG/DL CREATININE (test code = 2214) 0.98 MG/DL eGFR AMER. (test code 104 ML/MIN/1.73 = 62123) eGFR NON- AMER. (test 90 ML/MIN/1.73 code = 77469) CALC BUN/CREAT (test code = 9 RATIO 2235) SODIUM (test code = 2231) 143 MEQ/L POTASSIUM (test code = 2228) 4.5 MEQ/L CHLORIDE (test code = 2215) 105 MEQ/L CARBON DIOXIDE (test code = 22 MEQ/L 2205) CALCIUM (test code = 2209) 9.1 MG/DL PROTEIN, TOTAL (test code = 6.6 G/DL 2228) ALBUMIN (test code = 2201) 4.3 G/DL CALC GLOBULIN (test code = 2.3 G/DL 2239) CALC A/G RATIO (test code = 1.9 RATIO 2233) BILIRUBIN, TOTAL (test code = 0.4 MG/DL 2206) ALKALINE PHOSPHATASE (test 111 U/L code = 2204) AST (test code = 2218) 7 U/L ALT (test code = 2219) 15 U/L TROPONIN [id number] 00:00:00 Test Item Value Reference Range Interpretation Comments TROPONIN T (test code = 4017) <0.010 UG/L TROPONIN [id number] 00:00:00 Test Item Value Reference Range Interpretation Comments TROPONIN T (test code = 4017) <0.010 UG/L H. PYLORI (BREATH)2021-08-24 00:00:00 Test Item Value Reference Range Interpretation Comments H. PYLORI (BREATH) (test code = POSITIVE 44153) H. PYLORI (BREATH)2021-08-24 00:00:00 Test Item Value Reference Range Interpretation Comments H. PYLORI (BREATH) (test code = POSITIVE 04070) TROPONIN [id number] 00:00:00 Test Item Value Reference Range Interpretation Comments TROPONIN T (test code = 4017) <0.010 UG/L TROPONIN [id number] 00:00:00 Test Item Value Reference Range Interpretation Comments TROPONIN T (test code = 4017) <0.010 UG/L H. PYLORI (BREATH)2021-08-24 00:00:00 Test Item Value Reference Range Interpretation Comments H. PYLORI (BREATH) (test code = POSITIVE 22116) H. PYLORI (BREATH)2021-08-24 00:00:00 Test Item Value Reference Range Interpretation Comments H. PYLORI (BREATH) (test code = POSITIVE 82458) TROPONIN [id number] 00:00:00 Test Item Value Reference Range Interpretation Comments TROPONIN T (test code = 4017) <0.010 UG/L TROPONIN [id number] 00:00:00 Test Item Value Reference Range Interpretation Comments TROPONIN T (test code = 4017) <0.010 UG/L H. PYLORI (BREATH)2021-08-24 00:00:00 Test Item Value Reference Range Interpretation Comments H. PYLORI (BREATH) (test code = POSITIVE 76687) H. PYLORI (BREATH)2021-08-24 00:00:00 Test Item Value Reference Range Interpretation Comments H. PYLORI (BREATH) (test code = POSITIVE 99074) TROPONIN [id number] 00:00:00 Test Item Value Reference Range Interpretation Comments TROPONIN T (test code = 4017) <0.010 UG/L H. PYLORI (BREATH)2021-08-24 00:00:00 Test Item Value Reference Range Interpretation Comments H. PYLORI (BREATH) (test code = POSITIVE 86493) TROPONIN [id number] 00:00:00 Test Item Value Reference Range Interpretation Comments TROPONIN T (test code = 4017) <0.010 UG/L H. PYLORI (BREATH)2021-08-24 00:00:00 Test Item Value Reference Range Interpretation Comments H. PYLORI (BREATH) (test code = POSITIVE 10066) [id number] 00:00:00 Test Item Value Reference Range Interpretation Comments TESTOSTERONE (test code = 2830) 473 NG/DL [id number] 00:00:00 Test Item Value Reference Range Interpretation Comments TESTOSTERONE (test code = 2830) 473 NG/DL [id number] 00:00:00 Test Item Value Reference Range Interpretation Comments TESTOSTERONE (test code = 2830) 473 NG/DL [id number] 00:00:00 Test Item Value Reference Range Interpretation Comments TESTOSTERONE (test code = 2830) 473 NG/DL [id number] 00:00:00 Test Item Value Reference Range Interpretation Comments TESTOSTERONE (test code = 2830) 473 NG/DL [id number] 00:00:00 Test Item Value Reference Range Interpretation Comments TESTOSTERONE (test code = 2830) 473 NG/DL [id number] 00:00:00 Test Item Value Reference Range Interpretation Comments TESTOSTERONE (test code = 2830) 473 NG/DL [id number] 00:00:00 Test Item Value Reference Range Interpretation Comments TESTOSTERONE (test code = 2830) 473 NG/DL PSA, [id number] 00:00:00 Test Item Value Reference Range Interpretation Comments PSA, TOTAL (test code = 2606) 0.14 NG/ML PSA, [id number] 00:00:00 Test Item Value Reference Range Interpretation Comments PSA, TOTAL (test code = 2606) 0.14 NG/ML PSA, [id number] 00:00:00 Test Item Value Reference Range Interpretation Comments PSA, TOTAL (test code = 2606) 0.14 NG/ML [id number] 00:00:00 Test Item Value Reference Range Interpretation Comments TESTOSTERONE (test code = 2830) 175 NG/DL [id number] 00:00:00 Test Item Value Reference Range Interpretation Comments TESTOSTERONE (test code = 2830) 175 NG/DL HEMOGLOBIN [id number] 00:00:00 Test Item Value Reference Range Interpretation Comments HEMOGLOBIN A1c (test code = 79783) 9.1 % HEMOGLOBIN [id number] 00:00:00 Test Item Value Reference Range Interpretation Comments HEMOGLOBIN A1c (test code = 36849) 9.1 % HEMOGLOBIN [id number] 00:00:00 Test Item Value Reference Range Interpretation Comments HEMOGLOBIN A1c (test code = 21893) 9.1 % PSA, [id number] 00:00:00 Test Item Value Reference Range Interpretation Comments PSA, TOTAL (test code = 2606) 0.14 NG/ML PSA, [id number] 00:00:00 Test Item Value Reference Range Interpretation Comments PSA, TOTAL (test code = 2606) 0.14 NG/ML PSA, [id number] 00:00:00 Test Item Value Reference Range Interpretation Comments PSA, TOTAL (test code = 2606) 0.14 NG/ML [id number] 00:00:00 Test Item Value Reference Range Interpretation Comments TESTOSTERONE (test code = 2830) 175 NG/DL [id number] 00:00:00 Test Item Value Reference Range Interpretation Comments TESTOSTERONE (test code = 2830) 175 NG/DL HEMOGLOBIN [id number] 00:00:00 Test Item Value Reference Range Interpretation Comments HEMOGLOBIN A1c (test code = 79974) 9.1 % HEMOGLOBIN [id number] 00:00:00 Test Item Value Reference Range Interpretation Comments HEMOGLOBIN A1c (test code = 09140) 9.1 % HEMOGLOBIN [id number] 00:00:00 Test Item Value Reference Range Interpretation Comments HEMOGLOBIN A1c (test code = 29443) 9.1 % PSA, [id number] 00:00:00 Test Item Value Reference Range Interpretation Comments PSA, TOTAL (test code = 2606) 0.14 NG/ML PSA, [id number] 00:00:00 Test Item Value Reference Range Interpretation Comments PSA, TOTAL (test code = 2606) 0.14 NG/ML PSA, [id number] 00:00:00 Test Item Value Reference Range Interpretation Comments PSA, TOTAL (test code = 2606) 0.14 NG/ML [id number] 00:00:00 Test Item Value Reference Range Interpretation Comments TESTOSTERONE (test code = 2830) 175 NG/DL [id number] 00:00:00 Test Item Value Reference Range Interpretation Comments TESTOSTERONE (test code = 2830) 175 NG/DL HEMOGLOBIN [id number] 00:00:00 Test Item Value Reference Range Interpretation Comments HEMOGLOBIN A1c (test code = 37303) 9.1 % HEMOGLOBIN [id number] 00:00:00 Test Item Value Reference Range Interpretation Comments HEMOGLOBIN A1c (test code = 89132) 9.1 % HEMOGLOBIN [id number] 00:00:00 Test Item Value Reference Range Interpretation Comments HEMOGLOBIN A1c (test code = 53442) 9.1 % PSA, [id number] 00:00:00 Test Item Value Reference Range Interpretation Comments PSA, TOTAL (test code = 2606) 0.14 NG/ML PSA, [id number] 00:00:00 Test Item Value Reference Range Interpretation Comments PSA, TOTAL (test code = 2606) 0.14 NG/ML [id number] 00:00:00 Test Item Value Reference Range Interpretation Comments TESTOSTERONE (test code = 2830) 175 NG/DL HEMOGLOBIN [id number] 00:00:00 Test Item Value Reference Range Interpretation Comments HEMOGLOBIN A1c (test code = 47897) 9.1 % HEMOGLOBIN [id number] 00:00:00 Test Item Value Reference Range Interpretation Comments HEMOGLOBIN A1c (test code = 08565) 9.1 % PSA, [id number] 00:00:00 Test Item Value Reference Range Interpretation Comments PSA, TOTAL (test code = 2606) 0.14 NG/ML PSA, [id number] 00:00:00 Test Item Value Reference Range Interpretation Comments PSA, TOTAL (test code = 2606) 0.14 NG/ML [id number] 00:00:00 Test Item Value Reference Range Interpretation Comments TESTOSTERONE (test code = 2830) 175 NG/DL HEMOGLOBIN [id number] 00:00:00 Test Item Value Reference Range Interpretation Comments HEMOGLOBIN A1c (test code = 03406) 9.1 % HEMOGLOBIN [id number] 00:00:00 Test Item Value Reference Range Interpretation Comments HEMOGLOBIN A1c (test code = 05174) 9.1 % [id number] 00:00:00 Test Item Value Reference Range Interpretation Comments TESTOSTERONE (test code = 2830) 191 NG/DL [id number] 00:00:00 Test Item Value Reference Range Interpretation Comments TESTOSTERONE (test code = 2830) 191 NG/DL COMPREHENSIVE METABOLIC [id number] 00:00:00 Test Item Value Reference Range Interpretation Comments GLUCOSE (test code = 2217) 290 MG/DL BUN (test code = 2208) 12 MG/DL CREATININE (test code = 2214) 0.63 MG/DL eGFR AMER. (test code 133 ML/MIN/1.73 = 33080) eGFR NON- AMER. (test 115 ML/MIN/1.73 code = 62226) CALC BUN/CREAT (test code = 19 RATIO 2235) SODIUM (test code = 2231) 136 MEQ/L POTASSIUM (test code = 2228) 4.5 MEQ/L CHLORIDE (test code = 2215) 102 MEQ/L CARBON DIOXIDE (test code = 22 MEQ/L 220) CALCIUM (test code = 2209) 9.6 MG/DL PROTEIN, TOTAL (test code = 6.8 G/DL 222) ALBUMIN (test code = 2201) 4.6 G/DL CALC GLOBULIN (test code = 2.2 G/DL 2240) CALC A/G RATIO (test code = 2.1 RATIO 2234) BILIRUBIN, TOTAL (test code = 0.3 MG/DL 2206) ALKALINE PHOSPHATASE (test 132 U/L code = 2204) AST (test code = 2218) 10 U/L ALT (test code = 2219) 18 U/L COMPREHENSIVE METABOLIC [id number] 00:00:00 Test Item Value Reference Range Interpretation Comments GLUCOSE (test code = 2217) 290 MG/DL BUN (test code = 2208) 12 MG/DL CREATININE (test code = 2214) 0.63 MG/DL eGFR AMER. (test code 133 ML/MIN/1.73 = 60187) eGFR NON- AMER. (test 115 ML/MIN/1.73 code = 04554) CALC BUN/CREAT (test code = 19 RATIO 2235) SODIUM (test code = 2231) 136 MEQ/L POTASSIUM (test code = 2228) 4.5 MEQ/L CHLORIDE (test code = 2215) 102 MEQ/L CARBON DIOXIDE (test code = 22 MEQ/L 2205) CALCIUM (test code = 2209) 9.6 MG/DL PROTEIN, TOTAL (test code = 6.8 G/DL 2228) ALBUMIN (test code = 2201) 4.6 G/DL CALC GLOBULIN (test code = 2.2 G/DL 2240) CALC A/G RATIO (test code = 2.1 RATIO 2234) BILIRUBIN, TOTAL (test code = 0.3 MG/DL 2206) ALKALINE PHOSPHATASE (test 132 U/L code = 2204) AST (test code = 2218) 10 U/L ALT (test code = 2219) 18 U/L LIPID [id number] 00:00:00 Test Item Value Reference Range Interpretation Comments CHOLESTEROL (test code = 2210) 133 MG/DL TRIGLYCERIDES (test code = 2232) 183 MG/DL HDL CHOLESTEROL (test code = 2220) 39 MG/DL CALC LDL CHOL (test code = 2237) 68 MG/DL RISK RATIO LDL/HDL (test code = 1.74 RATIO 2238) LIPID [id number] 00:00:00 Test Item Value Reference Range Interpretation Comments CHOLESTEROL (test code = 2210) 133 MG/DL TRIGLYCERIDES (test code = 2232) 183 MG/DL HDL CHOLESTEROL (test code = 2220) 39 MG/DL CALC LDL CHOL (test code = 2237) 68 MG/DL RISK RATIO LDL/HDL (test code = 1.74 RATIO 2238) [id number] 00:00:00 Test Item Value Reference Range Interpretation Comments TESTOSTERONE (test code = 2830) 191 NG/DL [id number] 00:00:00 Test Item Value Reference Range Interpretation Comments TESTOSTERONE (test code = 2830) 191 NG/DL COMPREHENSIVE METABOLIC [id number] 00:00:00 Test Item Value Reference Range Interpretation Comments GLUCOSE (test code = 2217) 290 MG/DL BUN (test code = 2208) 12 MG/DL CREATININE (test code = 2214) 0.63 MG/DL eGFR AMER. (test code 133 ML/MIN/1.73 = 05368) eGFR NON- AMER. (test 115 ML/MIN/1.73 code = 96575) CALC BUN/CREAT (test code = 19 RATIO 2235) SODIUM (test code = 2231) 136 MEQ/L POTASSIUM (test code = 2228) 4.5 MEQ/L CHLORIDE (test code = 2215) 102 MEQ/L CARBON DIOXIDE (test code = 22 MEQ/L 2205) CALCIUM (test code = 2209) 9.6 MG/DL PROTEIN, TOTAL (test code = 6.8 G/DL 2228) ALBUMIN (test code = 2201) 4.6 G/DL CALC GLOBULIN (test code = 2.2 G/DL 0) CALC A/G RATIO (test code = 2.1 RATIO 2234) BILIRUBIN, TOTAL (test code = 0.3 MG/DL 2206) ALKALINE PHOSPHATASE (test 132 U/L code = 2204) AST (test code = 2218) 10 U/L ALT (test code = 2219) 18 U/L COMPREHENSIVE METABOLIC [id number] 00:00:00 Test Item Value Reference Range Interpretation Comments GLUCOSE (test code = 2217) 290 MG/DL BUN (test code = 2208) 12 MG/DL CREATININE (test code = 2214) 0.63 MG/DL eGFR AMER. (test code 133 ML/MIN/1.73 = 16744) eGFR NON- AMER. (test 115 ML/MIN/1.73 code = 14650) CALC BUN/CREAT (test code = 19 RATIO 2235) SODIUM (test code = 2231) 136 MEQ/L POTASSIUM (test code = 2228) 4.5 MEQ/L CHLORIDE (test code = 2215) 102 MEQ/L CARBON DIOXIDE (test code = 22 MEQ/L 2205) CALCIUM (test code = 2209) 9.6 MG/DL PROTEIN, TOTAL (test code = 6.8 G/DL 2228) ALBUMIN (test code = 220) 4.6 G/DL CALC GLOBULIN (test code = 2.2 G/DL 2239) CALC A/G RATIO (test code = 2.1 RATIO 2233) BILIRUBIN, TOTAL (test code = 0.3 MG/DL 2206) ALKALINE PHOSPHATASE (test 132 U/L code = 2204) AST (test code = 2218) 10 U/L ALT (test code = 2219) 18 U/L LIPID [id number] 00:00:00 Test Item Value Reference Range Interpretation Comments CHOLESTEROL (test code = 2210) 133 MG/DL TRIGLYCERIDES (test code = 2232) 183 MG/DL HDL CHOLESTEROL (test code = 2220) 39 MG/DL CALC LDL CHOL (test code = 2237) 68 MG/DL RISK RATIO LDL/HDL (test code = 1.74 RATIO 2238) LIPID [id number] 00:00:00 Test Item Value Reference Range Interpretation Comments CHOLESTEROL (test code = 2210) 133 MG/DL TRIGLYCERIDES (test code = 2232) 183 MG/DL HDL CHOLESTEROL (test code = 2220) 39 MG/DL CALC LDL CHOL (test code = 2237) 68 MG/DL RISK RATIO LDL/HDL (test code = 1.74 RATIO 2238) [id number] 00:00:00 Test Item Value Reference Range Interpretation Comments TESTOSTERONE (test code = 2830) 191 NG/DL [id number] 00:00:00 Test Item Value Reference Range Interpretation Comments TESTOSTERONE (test code = 2830) 191 NG/DL COMPREHENSIVE METABOLIC [id number] 00:00:00 Test Item Value Reference Range Interpretation Comments GLUCOSE (test code = 2217) 290 MG/DL BUN (test code = 2208) 12 MG/DL CREATININE (test code = 2214) 0.63 MG/DL eGFR AMER. (test code 133 ML/MIN/1.73 = 38022) eGFR NON- AMER. (test 115 ML/MIN/1.73 code = 13606) CALC BUN/CREAT (test code = 19 RATIO 2235) SODIUM (test code = 2231) 136 MEQ/L POTASSIUM (test code = 2228) 4.5 MEQ/L CHLORIDE (test code = 2215) 102 MEQ/L CARBON DIOXIDE (test code = 22 MEQ/L 2205) CALCIUM (test code = 2209) 9.6 MG/DL PROTEIN, TOTAL (test code = 6.8 G/DL 2228) ALBUMIN (test code = 2201) 4.6 G/DL CALC GLOBULIN (test code = 2.2 G/DL 2239) CALC A/G RATIO (test code = 2.1 RATIO 2234) BILIRUBIN, TOTAL (test code = 0.3 MG/DL 2206) ALKALINE PHOSPHATASE (test 132 U/L code = 2204) AST (test code = 2218) 10 U/L ALT (test code = 2219) 18 U/L COMPREHENSIVE METABOLIC [id number] 00:00:00 Test Item Value Reference Range Interpretation Comments GLUCOSE (test code = 2217) 290 MG/DL BUN (test code = 2208) 12 MG/DL CREATININE (test code = 2214) 0.63 MG/DL eGFR AMER. (test code 133 ML/MIN/1.73 = 82908) eGFR NON- AMER. (test 115 ML/MIN/1.73 code = 55115) CALC BUN/CREAT (test code = 19 RATIO 2235) SODIUM (test code = 2231) 136 MEQ/L POTASSIUM (test code = 2228) 4.5 MEQ/L CHLORIDE (test code = 2215) 102 MEQ/L CARBON DIOXIDE (test code = 22 MEQ/L 220) CALCIUM (test code = 2209) 9.6 MG/DL PROTEIN, TOTAL (test code = 6.8 G/DL 2228) ALBUMIN (test code = 2201) 4.6 G/DL CALC GLOBULIN (test code = 2.2 G/DL 2239) CALC A/G RATIO (test code = 2.1 RATIO 2234) BILIRUBIN, TOTAL (test code = 0.3 MG/DL 2206) ALKALINE PHOSPHATASE (test 132 U/L code = 2204) AST (test code = 2218) 10 U/L ALT (test code = 2219) 18 U/L LIPID [id number] 00:00:00 Test Item Value Reference Range Interpretation Comments CHOLESTEROL (test code = 2210) 133 MG/DL TRIGLYCERIDES (test code = 2232) 183 MG/DL HDL CHOLESTEROL (test code = 2220) 39 MG/DL CALC LDL CHOL (test code = 2237) 68 MG/DL RISK RATIO LDL/HDL (test code = 1.74 RATIO 2238) LIPID [id number] 00:00:00 Test Item Value Reference Range Interpretation Comments CHOLESTEROL (test code = 2210) 133 MG/DL TRIGLYCERIDES (test code = 2232) 183 MG/DL HDL CHOLESTEROL (test code = 2220) 39 MG/DL CALC LDL CHOL (test code = 2237) 68 MG/DL RISK RATIO LDL/HDL (test code = 1.74 RATIO 2238) [id number] 00:00:00 Test Item Value Reference Range Interpretation Comments TESTOSTERONE (test code = 2830) 191 NG/DL COMPREHENSIVE METABOLIC [id number] 00:00:00 Test Item Value Reference Range Interpretation Comments GLUCOSE (test code = 2217) 290 MG/DL BUN (test code = 2208) 12 MG/DL CREATININE (test code = 2214) 0.63 MG/DL eGFR AMER. (test code 133 ML/MIN/1.73 = 31174) eGFR NON- AMER. (test 115 ML/MIN/1.73 code = 10590) CALC BUN/CREAT (test code = 19 RATIO 2235) SODIUM (test code = 2231) 136 MEQ/L POTASSIUM (test code = 2228) 4.5 MEQ/L CHLORIDE (test code = 2215) 102 MEQ/L CARBON DIOXIDE (test code = 22 MEQ/L 2205) CALCIUM (test code = 2209) 9.6 MG/DL PROTEIN, TOTAL (test code = 6.8 G/DL 2228) ALBUMIN (test code = 220) 4.6 G/DL CALC GLOBULIN (test code = 2.2 G/DL 2239) CALC A/G RATIO (test code = 2.1 RATIO 223) BILIRUBIN, TOTAL (test code = 0.3 MG/DL 2206) ALKALINE PHOSPHATASE (test 132 U/L code = 220) AST (test code = 2218) 10 U/L ALT (test code = 2219) 18 U/L LIPID [id number] 00:00:00 Test Item Value Reference Range Interpretation Comments CHOLESTEROL (test code = 2210) 133 MG/DL TRIGLYCERIDES (test code = 2232) 183 MG/DL HDL CHOLESTEROL (test code = 2220) 39 MG/DL CALC LDL CHOL (test code = 2237) 68 MG/DL RISK RATIO LDL/HDL (test code = 1.74 RATIO 2238) [id number] 00:00:00 Test Item Value Reference Range Interpretation Comments TESTOSTERONE (test code = 2830) 191 NG/DL COMPREHENSIVE METABOLIC [id number] 00:00:00 Test Item Value Reference Range Interpretation Comments GLUCOSE (test code = 2217) 290 MG/DL BUN (test code = 2208) 12 MG/DL CREATININE (test code = 2214) 0.63 MG/DL eGFR AMER. (test code 133 ML/MIN/1.73 = 21714) eGFR NON- AMER. (test 115 ML/MIN/1.73 code = 44529) CALC BUN/CREAT (test code = 19 RATIO 2235) SODIUM (test code = 2231) 136 MEQ/L POTASSIUM (test code = 2228) 4.5 MEQ/L CHLORIDE (test code = 2215) 102 MEQ/L CARBON DIOXIDE (test code = 22 MEQ/L 2205) CALCIUM (test code = 2209) 9.6 MG/DL PROTEIN, TOTAL (test code = 6.8 G/DL 2228) ALBUMIN (test code = 220) 4.6 G/DL CALC GLOBULIN (test code = 2.2 G/DL 0) CALC A/G RATIO (test code = 2.1 RATIO 2234) BILIRUBIN, TOTAL (test code = 0.3 MG/DL 2206) ALKALINE PHOSPHATASE (test 132 U/L code = 2204) AST (test code = 2218) 10 U/L ALT (test code = 2219) 18 U/L LIPID [id number] 00:00:00 Test Item Value Reference Range Interpretation Comments CHOLESTEROL (test code = 2210) 133 MG/DL TRIGLYCERIDES (test code = 2232) 183 MG/DL HDL CHOLESTEROL (test code = 2220) 39 MG/DL CALC LDL CHOL (test code = 2237) 68 MG/DL RISK RATIO LDL/HDL (test code = 1.74 RATIO 2238) HEMOGLOBIN [id number] 00:00:00 Test Item Value Reference Range Interpretation Comments HEMOGLOBIN A1c (test code = 20043) 9.9 % HEMOGLOBIN [id number] 00:00:00 Test Item Value Reference Range Interpretation Comments HEMOGLOBIN A1c (test code = 09626) 9.9 % HEMOGLOBIN [id number] 00:00:00 Test Item Value Reference Range Interpretation Comments HEMOGLOBIN A1c (test code = 91008) 9.9 % HEMOGLOBIN [id number] 00:00:00 Test Item Value Reference Range Interpretation Comments HEMOGLOBIN A1c (test code = 94597) 9.9 % HEMOGLOBIN [id number] 00:00:00 Test Item Value Reference Range Interpretation Comments HEMOGLOBIN A1c (test code = 12432) 9.9 % HEMOGLOBIN [id number] 00:00:00 Test Item Value Reference Range Interpretation Comments HEMOGLOBIN A1c (test code = 24331) 9.9 % HEMOGLOBIN [id number] 00:00:00 Test Item Value Reference Range Interpretation Comments HEMOGLOBIN A1c (test code = 02254) 9.9 % HEMOGLOBIN [id number] 00:00:00 Test Item Value Reference Range Interpretation Comments HEMOGLOBIN A1c (test code = 52436) 9.9 % HEMOGLOBIN [id number] 00:00:00 Test Item Value Reference Range Interpretation Comments HEMOGLOBIN A1c (test code = 22190) 9.9 % HEMOGLOBIN [id number] 00:00:00 Test Item Value Reference Range Interpretation Comments HEMOGLOBIN A1c (test code = 19124) 9.9 % HEMOGLOBIN [id number] 00:00:00 Test Item Value Reference Range Interpretation Comments HEMOGLOBIN A1c (test code = 09649) 9.9 % HEMOGLOBIN [id number] 00:00:00 Test Item Value Reference Range Interpretation Comments HEMOGLOBIN A1c (test code = 41093) 9.9 % HEMOGLOBIN [id number] 00:00:00 Test Item Value Reference Range Interpretation Comments HEMOGLOBIN A1c (test code = 62059) 9.9 % CBC W/AUTO [id number] 00:00:00 Test Item Value Reference Range Interpretation Comments WBC (test code = 1001) 5.7 K/UL RBC (test code = 1002) 5.21 M/UL HEMOGLOBIN (test code = 1003) 14.6 G/DL HEMATOCRIT (test code = 1004) 42.4 % MCV (test code = 1005) 81.4 fL MCH (test code = 1006) 28.0 PG MCHC (test code = 1007) 34.4 G/DL RDW (test code = 1038) 14.3 % NEUTROPHILS (test code = 1008) 60.9 % LYMPHOCYTES (test code = 1010) 31.9 % MONOCYTES (test code = 1011) 5.6 % EOSINOPHILS (test code = 1012) 1.1 % BASOPHILS (test code = 1013) 0.5 % PLATELET COUNT (test code = 1015) 174 K/UL CBC W/AUTO [id number] 00:00:00 Test Item Value Reference Range Interpretation Comments WBC (test code = 1001) 5.7 K/UL RBC (test code = 1002) 5.21 M/UL HEMOGLOBIN (test code = 1003) 14.6 G/DL HEMATOCRIT (test code = 1004) 42.4 % MCV (test code = 1005) 81.4 fL MCH (test code = 1006) 28.0 PG MCHC (test code = 1007) 34.4 G/DL RDW (test code = 1038) 14.3 % NEUTROPHILS (test code = 1008) 60.9 % LYMPHOCYTES (test code = 1010) 31.9 % MONOCYTES (test code = 1011) 5.6 % EOSINOPHILS (test code = 1012) 1.1 % BASOPHILS (test code = 1013) 0.5 % PLATELET COUNT (test code = 1015) 174 K/UL CBC W/AUTO [id number] 00:00:00 Test Item Value Reference Range Interpretation Comments WBC (test code = 1001) 5.7 K/UL RBC (test code = 1002) 5.21 M/UL HEMOGLOBIN (test code = 1003) 14.6 G/DL HEMATOCRIT (test code = 1004) 42.4 % MCV (test code = 1005) 81.4 fL MCH (test code = 1006) 28.0 PG MCHC (test code = 1007) 34.4 G/DL RDW (test code = 1038) 14.3 % NEUTROPHILS (test code = 1008) 60.9 % LYMPHOCYTES (test code = 1010) 31.9 % MONOCYTES (test code = 1011) 5.6 % EOSINOPHILS (test code = 1012) 1.1 % BASOPHILS (test code = 1013) 0.5 % PLATELET COUNT (test code = 1015) 174 K/UL HEMOGLOBIN [id number] 00:00:00 Test Item Value Reference Range Interpretation Comments HEMOGLOBIN A1c (test code = 22071) 12.4 % HEMOGLOBIN [id number] 00:00:00 Test Item Value Reference Range Interpretation Comments HEMOGLOBIN A1c (test code = 82371) 12.4 % HEMOGLOBIN [id number] 00:00:00 Test Item Value Reference Range Interpretation Comments HEMOGLOBIN A1c (test code = 02328) 12.4 % LIPID [id number] 00:00:00 Test Item Value Reference Range Interpretation Comments CHOLESTEROL (test code = 2210) 221 MG/DL TRIGLYCERIDES (test code = 2232) 935 MG/DL HDL CHOLESTEROL (test code = 31 MG/DL 2220) CALC LDL CHOL (test code = 2237) (NOTE) MG/DL RISK RATIO LDL/HDL (test code = (NOTE) RATIO 2238) LIPID [id number] 00:00:00 Test Item Value Reference Range Interpretation Comments CHOLESTEROL (test code = 2210) 221 MG/DL TRIGLYCERIDES (test code = 2232) 935 MG/DL HDL CHOLESTEROL (test code = 31 MG/DL 2220) CALC LDL CHOL (test code = 2237) (NOTE) MG/DL RISK RATIO LDL/HDL (test code = (NOTE) RATIO 2238) COMPREHENSIVE METABOLIC [id number] 00:00:00 Test Item Value Reference Range Interpretation Comments GLUCOSE (test code = 2217) 311 MG/DL BUN (test code = 2208) 11 MG/DL CREATININE (test code = 2214) 0.58 MG/DL eGFR AMER. (test code 139 ML/MIN/1.73 = 58431) eGFR NON- AMER. (test 120 ML/MIN/1.73 code = 22601) CALC BUN/CREAT (test code = 19 RATIO 2235) SODIUM (test code = 2231) 136 MEQ/L POTASSIUM (test code = 2228) 3.9 MEQ/L CHLORIDE (test code = 2215) 101 MEQ/L CARBON DIOXIDE (test code = 21 MEQ/L 2206) CALCIUM (test code = 2209) 9.2 MG/DL PROTEIN, TOTAL (test code = 6.9 G/DL 2229) ALBUMIN (test code = 2201) 4.5 G/DL CALC GLOBULIN (test code = 2.4 G/DL 2240) CALC A/G RATIO (test code = 1.9 RATIO 2234) BILIRUBIN, TOTAL (test code = 0.6 MG/DL 220) ALKALINE PHOSPHATASE (test 146 U/L code = 2204) AST (test code = 2218) 13 U/L ALT (test code = 2219) 20 U/L COMPREHENSIVE METABOLIC [id number] 00:00:00 Test Item Value Reference Range Interpretation Comments GLUCOSE (test code = 2217) 311 MG/DL BUN (test code = 2208) 11 MG/DL CREATININE (test code = 2214) 0.58 MG/DL eGFR AMER. (test code 139 ML/MIN/1.73 = 75542) eGFR NON- AMER. (test 120 ML/MIN/1.73 code = 72241) CALC BUN/CREAT (test code = 19 RATIO 2235) SODIUM (test code = 2231) 136 MEQ/L POTASSIUM (test code = 2228) 3.9 MEQ/L CHLORIDE (test code = 2215) 101 MEQ/L CARBON DIOXIDE (test code = 21 MEQ/L 2206) CALCIUM (test code = 2209) 9.2 MG/DL PROTEIN, TOTAL (test code = 6.9 G/DL 2229) ALBUMIN (test code = 2201) 4.5 G/DL CALC GLOBULIN (test code = 2.4 G/DL 2240) CALC A/G RATIO (test code = 1.9 RATIO 2234) BILIRUBIN, TOTAL (test code = 0.6 MG/DL 2207) ALKALINE PHOSPHATASE (test 146 U/L code = 2204) AST (test code = 2218) 13 U/L ALT (test code = 2219) 20 U/L MICROALBUMIN/CREATININE, RANDOM AND [id number] 00:00:00 Test Item Value Reference Range Interpretation Comments CREATININE, URINE, CONC. (test 33.3 MG/DL code = 2072) ALBUMIN, URINE, RANDOM (test code 0.5 MG/DL = 97547) CALC ALBUMIN/CREAT, RND (test code 15 MG/G = 09082) MICROALBUMIN/CREATININE, RANDOM AND [id number] 00:00:00 Test Item Value Reference Range Interpretation Comments CREATININE, URINE, CONC. (test 33.3 MG/DL code = 2072) ALBUMIN, URINE, RANDOM (test code 0.5 MG/DL = 78990) CALC ALBUMIN/CREAT, RND (test code 15 MG/G = 27928) [id number] 00:00:00 Test Item Value Reference Range Interpretation Comments TSH, THIRD GENERATION (test code 0.648 UIU/ML = 2821) [id number] 00:00:00 Test Item Value Reference Range Interpretation Comments TSH, THIRD GENERATION (test code 0.648 UIU/ML = 2821) [id number] 00:00:00 Test Item Value Reference Range Interpretation Comments TSH, THIRD GENERATION (test code 0.648 UIU/ML = 2821) PSA, [id number] 00:00:00 Test Item Value Reference Range Interpretation Comments PSA, TOTAL (test code = 2606) 0.12 NG/ML PSA, [id number] 00:00:00 Test Item Value Reference Range Interpretation Comments PSA, TOTAL (test code = 2606) 0.12 NG/ML PSA, [id number] 00:00:00 Test Item Value Reference Range Interpretation Comments PSA, TOTAL (test code = 2606) 0.12 NG/ML CBC W/AUTO [id number] 00:00:00 Test Item Value Reference Range Interpretation Comments WBC (test code = 1001) 5.7 K/UL RBC (test code = 1002) 5.21 M/UL HEMOGLOBIN (test code = 1003) 14.6 G/DL HEMATOCRIT (test code = 1004) 42.4 % MCV (test code = 1005) 81.4 fL MCH (test code = 1006) 28.0 PG MCHC (test code = 1007) 34.4 G/DL RDW (test code = 1038) 14.3 % NEUTROPHILS (test code = 1008) 60.9 % LYMPHOCYTES (test code = 1010) 31.9 % MONOCYTES (test code = 1011) 5.6 % EOSINOPHILS (test code = 1012) 1.1 % BASOPHILS (test code = 1013) 0.5 % PLATELET COUNT (test code = 1015) 174 K/UL CBC W/AUTO [id number] 00:00:00 Test Item Value Reference Range Interpretation Comments WBC (test code = 1001) 5.7 K/UL RBC (test code = 1002) 5.21 M/UL HEMOGLOBIN (test code = 1003) 14.6 G/DL HEMATOCRIT (test code = 1004) 42.4 % MCV (test code = 1005) 81.4 fL MCH (test code = 1006) 28.0 PG MCHC (test code = 1007) 34.4 G/DL RDW (test code = 1038) 14.3 % NEUTROPHILS (test code = 1008) 60.9 % LYMPHOCYTES (test code = 1010) 31.9 % MONOCYTES (test code = 1011) 5.6 % EOSINOPHILS (test code = 1012) 1.1 % BASOPHILS (test code = 1013) 0.5 % PLATELET COUNT (test code = 1015) 174 K/UL CBC W/AUTO [id number] 00:00:00 Test Item Value Reference Range Interpretation Comments WBC (test code = 1001) 5.7 K/UL RBC (test code = 1002) 5.21 M/UL HEMOGLOBIN (test code = 1003) 14.6 G/DL HEMATOCRIT (test code = 1004) 42.4 % MCV (test code = 1005) 81.4 fL MCH (test code = 1006) 28.0 PG MCHC (test code = 1007) 34.4 G/DL RDW (test code = 1038) 14.3 % NEUTROPHILS (test code = 1008) 60.9 % LYMPHOCYTES (test code = 1010) 31.9 % MONOCYTES (test code = 1011) 5.6 % EOSINOPHILS (test code = 1012) 1.1 % BASOPHILS (test code = 1013) 0.5 % PLATELET COUNT (test code = 1015) 174 K/UL HEMOGLOBIN [id number] 00:00:00 Test Item Value Reference Range Interpretation Comments HEMOGLOBIN A1c (test code = 49116) 12.4 % HEMOGLOBIN [id number] 00:00:00 Test Item Value Reference Range Interpretation Comments HEMOGLOBIN A1c (test code = 62569) 12.4 % HEMOGLOBIN [id number] 00:00:00 Test Item Value Reference Range Interpretation Comments HEMOGLOBIN A1c (test code = 35841) 12.4 % LIPID [id number] 00:00:00 Test Item Value Reference Range Interpretation Comments CHOLESTEROL (test code = 2210) 221 MG/DL TRIGLYCERIDES (test code = 2232) 935 MG/DL HDL CHOLESTEROL (test code = 31 MG/DL 2220) CALC LDL CHOL (test code = 2237) (NOTE) MG/DL RISK RATIO LDL/HDL (test code = (NOTE) RATIO 2238) LIPID [id number] 00:00:00 Test Item Value Reference Range Interpretation Comments CHOLESTEROL (test code = 2210) 221 MG/DL TRIGLYCERIDES (test code = 2232) 935 MG/DL HDL CHOLESTEROL (test code = 31 MG/DL 2220) CALC LDL CHOL (test code = 2237) (NOTE) MG/DL RISK RATIO LDL/HDL (test code = (NOTE) RATIO 2238) COMPREHENSIVE METABOLIC [id number] 00:00:00 Test Item Value Reference Range Interpretation Comments GLUCOSE (test code = 2217) 311 MG/DL BUN (test code = 2208) 11 MG/DL CREATININE (test code = 2214) 0.58 MG/DL eGFR AMER. (test code 139 ML/MIN/1.73 = 04354) eGFR NON- AMER. (test 120 ML/MIN/1.73 code = 54723) CALC BUN/CREAT (test code = 19 RATIO 2235) SODIUM (test code = 2231) 136 MEQ/L POTASSIUM (test code = 2228) 3.9 MEQ/L CHLORIDE (test code = 2215) 101 MEQ/L CARBON DIOXIDE (test code = 21 MEQ/L 2205) CALCIUM (test code = 2209) 9.2 MG/DL PROTEIN, TOTAL (test code = 6.9 G/DL 2228) ALBUMIN (test code = 2201) 4.5 G/DL CALC GLOBULIN (test code = 2.4 G/DL 2239) CALC A/G RATIO (test code = 1.9 RATIO 2234) BILIRUBIN, TOTAL (test code = 0.6 MG/DL 2206) ALKALINE PHOSPHATASE (test 146 U/L code = 2204) AST (test code = 2218) 13 U/L ALT (test code = 2219) 20 U/L COMPREHENSIVE METABOLIC [id number] 00:00:00 Test Item Value Reference Range Interpretation Comments GLUCOSE (test code = 2217) 311 MG/DL BUN (test code = 2208) 11 MG/DL CREATININE (test code = 2214) 0.58 MG/DL eGFR AMER. (test code 139 ML/MIN/1.73 = 02893) eGFR NON- AMER. (test 120 ML/MIN/1.73 code = 94981) CALC BUN/CREAT (test code = 19 RATIO 2235) SODIUM (test code = 2231) 136 MEQ/L POTASSIUM (test code = 2228) 3.9 MEQ/L CHLORIDE (test code = 2215) 101 MEQ/L CARBON DIOXIDE (test code = 21 MEQ/L 2205) CALCIUM (test code = 2209) 9.2 MG/DL PROTEIN, TOTAL (test code = 6.9 G/DL 2228) ALBUMIN (test code = 2201) 4.5 G/DL CALC GLOBULIN (test code = 2.4 G/DL 2240) CALC A/G RATIO (test code = 1.9 RATIO 2234) BILIRUBIN, TOTAL (test code = 0.6 MG/DL 2206) ALKALINE PHOSPHATASE (test 146 U/L code = 2204) AST (test code = 2218) 13 U/L ALT (test code = 2219) 20 U/L MICROALBUMIN/CREATININE, RANDOM AND [id number] 00:00:00 Test Item Value Reference Range Interpretation Comments CREATININE, URINE, CONC. (test 33.3 MG/DL code = 2072) ALBUMIN, URINE, RANDOM (test code 0.5 MG/DL = 29709) CALC ALBUMIN/CREAT, RND (test code 15 MG/G = 41829) MICROALBUMIN/CREATININE, RANDOM AND [id number] 00:00:00 Test Item Value Reference Range Interpretation Comments CREATININE, URINE, CONC. (test 33.3 MG/DL code = 2072) ALBUMIN, URINE, RANDOM (test code 0.5 MG/DL = 40024) CALC ALBUMIN/CREAT, RND (test code 15 MG/G = 33659) [id number] 00:00:00 Test Item Value Reference Range Interpretation Comments TSH, THIRD GENERATION (test code 0.648 UIU/ML = 2821) [id number] 00:00:00 Test Item Value Reference Range Interpretation Comments TSH, THIRD GENERATION (test code 0.648 UIU/ML = 2821) [id number] 00:00:00 Test Item Value Reference Range Interpretation Comments TSH, THIRD GENERATION (test code 0.648 UIU/ML = 2821) PSA, [id number] 00:00:00 Test Item Value Reference Range Interpretation Comments PSA, TOTAL (test code = 2606) 0.12 NG/ML PSA, [id number] 00:00:00 Test Item Value Reference Range Interpretation Comments PSA, TOTAL (test code = 2606) 0.12 NG/ML PSA, [id number] 00:00:00 Test Item Value Reference Range Interpretation Comments PSA, TOTAL (test code = 2606) 0.12 NG/ML CBC W/AUTO [id number] 00:00:00 Test Item Value Reference Range Interpretation Comments WBC (test code = 1001) 5.7 K/UL RBC (test code = 1002) 5.21 M/UL HEMOGLOBIN (test code = 1003) 14.6 G/DL HEMATOCRIT (test code = 1004) 42.4 % MCV (test code = 1005) 81.4 fL MCH (test code = 1006) 28.0 PG MCHC (test code = 1007) 34.4 G/DL RDW (test code = 1038) 14.3 % NEUTROPHILS (test code = 1008) 60.9 % LYMPHOCYTES (test code = 1010) 31.9 % MONOCYTES (test code = 1011) 5.6 % EOSINOPHILS (test code = 1012) 1.1 % BASOPHILS (test code = 1013) 0.5 % PLATELET COUNT (test code = 1015) 174 K/UL CBC W/AUTO [id number] 00:00:00 Test Item Value Reference Range Interpretation Comments WBC (test code = 1001) 5.7 K/UL RBC (test code = 1002) 5.21 M/UL HEMOGLOBIN (test code = 1003) 14.6 G/DL HEMATOCRIT (test code = 1004) 42.4 % MCV (test code = 1005) 81.4 fL MCH (test code = 1006) 28.0 PG MCHC (test code = 1007) 34.4 G/DL RDW (test code = 1038) 14.3 % NEUTROPHILS (test code = 1008) 60.9 % LYMPHOCYTES (test code = 1010) 31.9 % MONOCYTES (test code = 1011) 5.6 % EOSINOPHILS (test code = 1012) 1.1 % BASOPHILS (test code = 1013) 0.5 % PLATELET COUNT (test code = 1015) 174 K/UL CBC W/AUTO [id number] 00:00:00 Test Item Value Reference Range Interpretation Comments WBC (test code = 1001) 5.7 K/UL RBC (test code = 1002) 5.21 M/UL HEMOGLOBIN (test code = 1003) 14.6 G/DL HEMATOCRIT (test code = 1004) 42.4 % MCV (test code = 1005) 81.4 fL MCH (test code = 1006) 28.0 PG MCHC (test code = 1007) 34.4 G/DL RDW (test code = 1038) 14.3 % NEUTROPHILS (test code = 1008) 60.9 % LYMPHOCYTES (test code = 1010) 31.9 % MONOCYTES (test code = 1011) 5.6 % EOSINOPHILS (test code = 1012) 1.1 % BASOPHILS (test code = 1013) 0.5 % PLATELET COUNT (test code = 1015) 174 K/UL HEMOGLOBIN [id number] 00:00:00 Test Item Value Reference Range Interpretation Comments HEMOGLOBIN A1c (test code = 03149) 12.4 % HEMOGLOBIN [id number] 00:00:00 Test Item Value Reference Range Interpretation Comments HEMOGLOBIN A1c (test code = 97010) 12.4 % HEMOGLOBIN [id number] 00:00:00 Test Item Value Reference Range Interpretation Comments HEMOGLOBIN A1c (test code = 88249) 12.4 % LIPID [id number] 00:00:00 Test Item Value Reference Range Interpretation Comments CHOLESTEROL (test code = 2210) 221 MG/DL TRIGLYCERIDES (test code = 2232) 935 MG/DL HDL CHOLESTEROL (test code = 31 MG/DL 2220) CALC LDL CHOL (test code = 2237) (NOTE) MG/DL RISK RATIO LDL/HDL (test code = (NOTE) RATIO 2238) LIPID [id number] 00:00:00 Test Item Value Reference Range Interpretation Comments CHOLESTEROL (test code = 2210) 221 MG/DL TRIGLYCERIDES (test code = 2232) 935 MG/DL HDL CHOLESTEROL (test code = 31 MG/DL 2220) CALC LDL CHOL (test code = 2237) (NOTE) MG/DL RISK RATIO LDL/HDL (test code = (NOTE) RATIO 2238) COMPREHENSIVE METABOLIC [id number] 00:00:00 Test Item Value Reference Range Interpretation Comments GLUCOSE (test code = 2217) 311 MG/DL BUN (test code = 2208) 11 MG/DL CREATININE (test code = 2214) 0.58 MG/DL eGFR AMER. (test code 139 ML/MIN/1.73 = 21920) eGFR NON- AMER. (test 120 ML/MIN/1.73 code = 33491) CALC BUN/CREAT (test code = 19 RATIO 2235) SODIUM (test code = 2231) 136 MEQ/L POTASSIUM (test code = 2228) 3.9 MEQ/L CHLORIDE (test code = 2215) 101 MEQ/L CARBON DIOXIDE (test code = 21 MEQ/L 2206) CALCIUM (test code = 2209) 9.2 MG/DL PROTEIN, TOTAL (test code = 6.9 G/DL 2228) ALBUMIN (test code = 2201) 4.5 G/DL CALC GLOBULIN (test code = 2.4 G/DL 2240) CALC A/G RATIO (test code = 1.9 RATIO 2234) BILIRUBIN, TOTAL (test code = 0.6 MG/DL 2206) ALKALINE PHOSPHATASE (test 146 U/L code = 2204) AST (test code = 2218) 13 U/L ALT (test code = 2219) 20 U/L COMPREHENSIVE METABOLIC [id number] 00:00:00 Test Item Value Reference Range Interpretation Comments GLUCOSE (test code = 2217) 311 MG/DL BUN (test code = 2208) 11 MG/DL CREATININE (test code = 2214) 0.58 MG/DL eGFR AMER. (test code 139 ML/MIN/1.73 = 67062) eGFR NON- AMER. (test 120 ML/MIN/1.73 code = 74065) CALC BUN/CREAT (test code = 19 RATIO 2235) SODIUM (test code = 2231) 136 MEQ/L POTASSIUM (test code = 2228) 3.9 MEQ/L CHLORIDE (test code = 2215) 101 MEQ/L CARBON DIOXIDE (test code = 21 MEQ/L 2205) CALCIUM (test code = 2209) 9.2 MG/DL PROTEIN, TOTAL (test code = 6.9 G/DL 2228) ALBUMIN (test code = 220) 4.5 G/DL CALC GLOBULIN (test code = 2.4 G/DL 2239) CALC A/G RATIO (test code = 1.9 RATIO 2233) BILIRUBIN, TOTAL (test code = 0.6 MG/DL 2206) ALKALINE PHOSPHATASE (test 146 U/L code = 2203) AST (test code = 2218) 13 U/L ALT (test code = 2219) 20 U/L MICROALBUMIN/CREATININE, RANDOM AND [id number] 00:00:00 Test Item Value Reference Range Interpretation Comments CREATININE, URINE, CONC. (test 33.3 MG/DL code = 2072) ALBUMIN, URINE, RANDOM (test code 0.5 MG/DL = 23639) CALC ALBUMIN/CREAT, RND (test code 15 MG/G = 13751) MICROALBUMIN/CREATININE, RANDOM AND [id number] 00:00:00 Test Item Value Reference Range Interpretation Comments CREATININE, URINE, CONC. (test 33.3 MG/DL code = 2072) ALBUMIN, URINE, RANDOM (test code 0.5 MG/DL = 80998) CALC ALBUMIN/CREAT, RND (test code 15 MG/G = 20711) [id number] 00:00:00 Test Item Value Reference Range Interpretation Comments TSH, THIRD GENERATION (test code 0.648 UIU/ML = 2821) [id number] 00:00:00 Test Item Value Reference Range Interpretation Comments TSH, THIRD GENERATION (test code 0.648 UIU/ML = 2821) [id number] 00:00:00 Test Item Value Reference Range Interpretation Comments TSH, THIRD GENERATION (test code 0.648 UIU/ML = 2821) PSA, [id number] 00:00:00 Test Item Value Reference Range Interpretation Comments PSA, TOTAL (test code = 2606) 0.12 NG/ML PSA, [id number] 00:00:00 Test Item Value Reference Range Interpretation Comments PSA, TOTAL (test code = 2606) 0.12 NG/ML PSA, [id number] 00:00:00 Test Item Value Reference Range Interpretation Comments PSA, TOTAL (test code = 2606) 0.12 NG/ML CBC W/AUTO [id number] 00:00:00 Test Item Value Reference Range Interpretation Comments WBC (test code = 1001) 5.7 K/UL RBC (test code = 1002) 5.21 M/UL HEMOGLOBIN (test code = 1003) 14.6 G/DL HEMATOCRIT (test code = 1004) 42.4 % MCV (test code = 1005) 81.4 fL MCH (test code = 1006) 28.0 PG MCHC (test code = 1007) 34.4 G/DL RDW (test code = 1038) 14.3 % NEUTROPHILS (test code = 1008) 60.9 % LYMPHOCYTES (test code = 1010) 31.9 % MONOCYTES (test code = 1011) 5.6 % EOSINOPHILS (test code = 1012) 1.1 % BASOPHILS (test code = 1013) 0.5 % PLATELET COUNT (test code = 1015) 174 K/UL CBC W/AUTO [id number] 00:00:00 Test Item Value Reference Range Interpretation Comments WBC (test code = 1001) 5.7 K/UL RBC (test code = 1002) 5.21 M/UL HEMOGLOBIN (test code = 1003) 14.6 G/DL HEMATOCRIT (test code = 1004) 42.4 % MCV (test code = 1005) 81.4 fL MCH (test code = 1006) 28.0 PG MCHC (test code = 1007) 34.4 G/DL RDW (test code = 1038) 14.3 % NEUTROPHILS (test code = 1008) 60.9 % LYMPHOCYTES (test code = 1010) 31.9 % MONOCYTES (test code = 1011) 5.6 % EOSINOPHILS (test code = 1012) 1.1 % BASOPHILS (test code = 1013) 0.5 % PLATELET COUNT (test code = 1015) 174 K/UL HEMOGLOBIN [id number] 00:00:00 Test Item Value Reference Range Interpretation Comments HEMOGLOBIN A1c (test code = 11186) 12.4 % HEMOGLOBIN [id number] 00:00:00 Test Item Value Reference Range Interpretation Comments HEMOGLOBIN A1c (test code = 75629) 12.4 % LIPID [id number] 00:00:00 Test Item Value Reference Range Interpretation Comments CHOLESTEROL (test code = 2210) 221 MG/DL TRIGLYCERIDES (test code = 2232) 935 MG/DL HDL CHOLESTEROL (test code = 31 MG/DL 2220) CALC LDL CHOL (test code = 2237) (NOTE) MG/DL RISK RATIO LDL/HDL (test code = (NOTE) RATIO 2238) COMPREHENSIVE METABOLIC [id number] 00:00:00 Test Item Value Reference Range Interpretation Comments GLUCOSE (test code = 2217) 311 MG/DL BUN (test code = 2208) 11 MG/DL CREATININE (test code = 2214) 0.58 MG/DL eGFR AMER. (test code 139 ML/MIN/1.73 = 47254) eGFR NON- AMER. (test 120 ML/MIN/1.73 code = 29201) CALC BUN/CREAT (test code = 19 RATIO 2235) SODIUM (test code = 2231) 136 MEQ/L POTASSIUM (test code = 2228) 3.9 MEQ/L CHLORIDE (test code = 2215) 101 MEQ/L CARBON DIOXIDE (test code = 21 MEQ/L 2206) CALCIUM (test code = 2209) 9.2 MG/DL PROTEIN, TOTAL (test code = 6.9 G/DL 2228) ALBUMIN (test code = 2201) 4.5 G/DL CALC GLOBULIN (test code = 2.4 G/DL 2240) CALC A/G RATIO (test code = 1.9 RATIO 2234) BILIRUBIN, TOTAL (test code = 0.6 MG/DL 2206) ALKALINE PHOSPHATASE (test 146 U/L code = 2204) AST (test code = 2218) 13 U/L ALT (test code = 2219) 20 U/L MICROALBUMIN/CREATININE, RANDOM AND [id number] 00:00:00 Test Item Value Reference Range Interpretation Comments CREATININE, URINE, CONC. (test 33.3 MG/DL code = 2072) ALBUMIN, URINE, RANDOM (test code 0.5 MG/DL = 80471) CALC ALBUMIN/CREAT, RND (test code 15 MG/G = 55104) [id number] 00:00:00 Test Item Value Reference Range Interpretation Comments TSH, THIRD GENERATION (test code 0.648 UIU/ML = 2821) [id number] 00:00:00 Test Item Value Reference Range Interpretation Comments TSH, THIRD GENERATION (test code 0.648 UIU/ML = 2821) PSA, [id number] 00:00:00 Test Item Value Reference Range Interpretation Comments PSA, TOTAL (test code = 2606) 0.12 NG/ML PSA, [id number] 00:00:00 Test Item Value Reference Range Interpretation Comments PSA, TOTAL (test code = 2606) 0.12 NG/ML CBC W/AUTO [id number] 00:00:00 Test Item Value Reference Range Interpretation Comments WBC (test code = 1001) 5.7 K/UL RBC (test code = 1002) 5.21 M/UL HEMOGLOBIN (test code = 1003) 14.6 G/DL HEMATOCRIT (test code = 1004) 42.4 % MCV (test code = 1005) 81.4 fL MCH (test code = 1006) 28.0 PG MCHC (test code = 1007) 34.4 G/DL RDW (test code = 1038) 14.3 % NEUTROPHILS (test code = 1008) 60.9 % LYMPHOCYTES (test code = 1010) 31.9 % MONOCYTES (test code = 1011) 5.6 % EOSINOPHILS (test code = 1012) 1.1 % BASOPHILS (test code = 1013) 0.5 % PLATELET COUNT (test code = 1015) 174 K/UL CBC W/AUTO [id number] 00:00:00 Test Item Value Reference Range Interpretation Comments WBC (test code = 1001) 5.7 K/UL RBC (test code = 1002) 5.21 M/UL HEMOGLOBIN (test code = 1003) 14.6 G/DL HEMATOCRIT (test code = 1004) 42.4 % MCV (test code = 1005) 81.4 fL MCH (test code = 1006) 28.0 PG MCHC (test code = 1007) 34.4 G/DL RDW (test code = 1038) 14.3 % NEUTROPHILS (test code = 1008) 60.9 % LYMPHOCYTES (test code = 1010) 31.9 % MONOCYTES (test code = 1011) 5.6 % EOSINOPHILS (test code = 1012) 1.1 % BASOPHILS (test code = 1013) 0.5 % PLATELET COUNT (test code = 1015) 174 K/UL HEMOGLOBIN [id number] 00:00:00 Test Item Value Reference Range Interpretation Comments HEMOGLOBIN A1c (test code = 37969) 12.4 % HEMOGLOBIN [id number] 00:00:00 Test Item Value Reference Range Interpretation Comments HEMOGLOBIN A1c (test code = 86656) 12.4 % LIPID [id number] 00:00:00 Test Item Value Reference Range Interpretation Comments CHOLESTEROL (test code = 2210) 221 MG/DL TRIGLYCERIDES (test code = 2232) 935 MG/DL HDL CHOLESTEROL (test code = 31 MG/DL 0) CALC LDL CHOL (test code = 2237) (NOTE) MG/DL RISK RATIO LDL/HDL (test code = (NOTE) RATIO 2238) COMPREHENSIVE METABOLIC [id number] 00:00:00 Test Item Value Reference Range Interpretation Comments GLUCOSE (test code = 2217) 311 MG/DL BUN (test code = 2208) 11 MG/DL CREATININE (test code = 2214) 0.58 MG/DL eGFR AMER. (test code 139 ML/MIN/1.73 = 63664) eGFR NON- AMER. (test 120 ML/MIN/1.73 code = 98145) CALC BUN/CREAT (test code = 19 RATIO 2235) SODIUM (test code = 2231) 136 MEQ/L POTASSIUM (test code = 2228) 3.9 MEQ/L CHLORIDE (test code = 2215) 101 MEQ/L CARBON DIOXIDE (test code = 21 MEQ/L 2206) CALCIUM (test code = 2209) 9.2 MG/DL PROTEIN, TOTAL (test code = 6.9 G/DL 2228) ALBUMIN (test code = 2201) 4.5 G/DL CALC GLOBULIN (test code = 2.4 G/DL 2240) CALC A/G RATIO (test code = 1.9 RATIO 2234) BILIRUBIN, TOTAL (test code = 0.6 MG/DL 2206) ALKALINE PHOSPHATASE (test 146 U/L code = 2204) AST (test code = 2218) 13 U/L ALT (test code = 2219) 20 U/L MICROALBUMIN/CREATININE, RANDOM AND [id number] 00:00:00 Test Item Value Reference Range Interpretation Comments CREATININE, URINE, CONC. (test 33.3 MG/DL code = 2072) ALBUMIN, URINE, RANDOM (test code 0.5 MG/DL = 56112) CALC ALBUMIN/CREAT, RND (test code 15 MG/G = 18770) [id number] 00:00:00 Test Item Value Reference Range Interpretation Comments TSH, THIRD GENERATION (test code 0.648 UIU/ML = 2821) [id number] 00:00:00 Test Item Value Reference Range Interpretation Comments TSH, THIRD GENERATION (test code 0.648 UIU/ML = 2821) PSA, [id number] 00:00:00 Test Item Value Reference Range Interpretation Comments PSA, TOTAL (test code = 2606) 0.12 NG/ML PSA, [id number] 00:00:00 Test Item Value Reference Range Interpretation Comments PSA, TOTAL (test code = 2606) 0.12 NG/ML CBC W/AUTO [id number] 00:00:00 Test Item Value Reference Range Interpretation Comments WBC (test code = 1001) 6.0 K/UL RBC (test code = 1002) 5.50 M/UL HEMOGLOBIN (test code = 1003) 15.7 G/DL HEMATOCRIT (test code = 1004) 45.0 % MCV (test code = 1005) 81.8 fL MCH (test code = 1006) 28.5 PG MCHC (test code = 1007) 34.9 G/DL RDW (test code = 1038) 14.4 % NEUTROPHILS (test code = 1008) 57.2 % LYMPHOCYTES (test code = 1010) 32.8 % MONOCYTES (test code = 1011) 7.5 % EOSINOPHILS (test code = 1012) 2.0 % BASOPHILS (test code = 1013) 0.5 % PLATELET COUNT (test code = 1015) 202 K/UL CBC W/AUTO [id number] 00:00:00 Test Item Value Reference Range Interpretation Comments WBC (test code = 1001) 6.0 K/UL RBC (test code = 1002) 5.50 M/UL HEMOGLOBIN (test code = 1003) 15.7 G/DL HEMATOCRIT (test code = 1004) 45.0 % MCV (test code = 1005) 81.8 fL MCH (test code = 1006) 28.5 PG MCHC (test code = 1007) 34.9 G/DL RDW (test code = 1038) 14.4 % NEUTROPHILS (test code = 1008) 57.2 % LYMPHOCYTES (test code = 1010) 32.8 % MONOCYTES (test code = 1011) 7.5 % EOSINOPHILS (test code = 1012) 2.0 % BASOPHILS (test code = 1013) 0.5 % PLATELET COUNT (test code = 1015) 202 K/UL CBC W/AUTO [id number] 00:00:00 Test Item Value Reference Range Interpretation Comments WBC (test code = 1001) 6.0 K/UL RBC (test code = 1002) 5.50 M/UL HEMOGLOBIN (test code = 1003) 15.7 G/DL HEMATOCRIT (test code = 1004) 45.0 % MCV (test code = 1005) 81.8 fL MCH (test code = 1006) 28.5 PG MCHC (test code = 1007) 34.9 G/DL RDW (test code = 1038) 14.4 % NEUTROPHILS (test code = 1008) 57.2 % LYMPHOCYTES (test code = 1010) 32.8 % MONOCYTES (test code = 1011) 7.5 % EOSINOPHILS (test code = 1012) 2.0 % BASOPHILS (test code = 1013) 0.5 % PLATELET COUNT (test code = 1015) 202 K/UL COMPREHENSIVE METABOLIC [id number] 00:00:00 Test Item Value Reference Range Interpretation Comments GLUCOSE (test code = 2217) 270 MG/DL BUN (test code = 2208) 10 MG/DL CREATININE (test code = 2214) 0.49 MG/DL eGFR AMER. (test code 150 ML/MIN/1.73 = 26697) eGFR NON- AMER. (test 129 ML/MIN/1.73 code = 82478) CALC BUN/CREAT (test code = 20 RATIO 2235) SODIUM (test code = 2231) 136 MEQ/L POTASSIUM (test code = 2228) 4.2 MEQ/L CHLORIDE (test code = 2215) 98 MEQ/L CARBON DIOXIDE (test code = 23 MEQ/L 2205) CALCIUM (test code = 2209) 9.7 MG/DL PROTEIN, TOTAL (test code = 7.5 G/DL 2228) ALBUMIN (test code = 2201) 4.9 G/DL CALC GLOBULIN (test code = 2.6 G/DL 2240) CALC A/G RATIO (test code = 1.9 RATIO 2234) BILIRUBIN, TOTAL (test code = 0.8 MG/DL 2206) ALKALINE PHOSPHATASE (test 168 U/L code = 2204) AST (test code = 2218) 12 U/L ALT (test code = 2219) 22 U/L COMPREHENSIVE METABOLIC [id number] 00:00:00 Test Item Value Reference Range Interpretation Comments GLUCOSE (test code = 2217) 270 MG/DL BUN (test code = 2208) 10 MG/DL CREATININE (test code = 2214) 0.49 MG/DL eGFR AMER. (test code 150 ML/MIN/1.73 = 90003) eGFR NON- AMER. (test 129 ML/MIN/1.73 code = 78842) CALC BUN/CREAT (test code = 20 RATIO 2235) SODIUM (test code = 2231) 136 MEQ/L POTASSIUM (test code = 2228) 4.2 MEQ/L CHLORIDE (test code = 2215) 98 MEQ/L CARBON DIOXIDE (test code = 23 MEQ/L 2205) CALCIUM (test code = 2209) 9.7 MG/DL PROTEIN, TOTAL (test code = 7.5 G/DL 2228) ALBUMIN (test code = 2201) 4.9 G/DL CALC GLOBULIN (test code = 2.6 G/DL 2240) CALC A/G RATIO (test code = 1.9 RATIO 2234) BILIRUBIN, TOTAL (test code = 0.8 MG/DL 2206) ALKALINE PHOSPHATASE (test 168 U/L code = 2204) AST (test code = 2218) 12 U/L ALT (test code = 2219) 22 U/L LIPID [id number] 00:00:00 Test Item Value Reference Range Interpretation Comments CHOLESTEROL (test code = 2210) 243 MG/DL TRIGLYCERIDES (test code = 2232) 703 MG/DL HDL CHOLESTEROL (test code = 38 MG/DL 2220) CALC LDL CHOL (test code = 2237) (NOTE) MG/DL RISK RATIO LDL/HDL (test code = (NOTE) RATIO 2238) LIPID [id number] 00:00:00 Test Item Value Reference Range Interpretation Comments CHOLESTEROL (test code = 2210) 243 MG/DL TRIGLYCERIDES (test code = 2232) 703 MG/DL HDL CHOLESTEROL (test code = 38 MG/DL 2220) CALC LDL CHOL (test code = 2237) (NOTE) MG/DL RISK RATIO LDL/HDL (test code = (NOTE) RATIO 2238) HEMOGLOBIN [id number] 00:00:00 Test Item Value Reference Range Interpretation Comments HEMOGLOBIN A1c (test code = 91440) 11.5 % HEMOGLOBIN [id number] 00:00:00 Test Item Value Reference Range Interpretation Comments HEMOGLOBIN A1c (test code = 48677) 11.5 % HEMOGLOBIN [id number] 00:00:00 Test Item Value Reference Range Interpretation Comments HEMOGLOBIN A1c (test code = 80153) 11.5 % CBC W/AUTO [id number] 00:00:00 Test Item Value Reference Range Interpretation Comments WBC (test code = 1001) 6.0 K/UL RBC (test code = 1002) 5.50 M/UL HEMOGLOBIN (test code = 1003) 15.7 G/DL HEMATOCRIT (test code = 1004) 45.0 % MCV (test code = 1005) 81.8 fL MCH (test code = 1006) 28.5 PG MCHC (test code = 1007) 34.9 G/DL RDW (test code = 1038) 14.4 % NEUTROPHILS (test code = 1008) 57.2 % LYMPHOCYTES (test code = 1010) 32.8 % MONOCYTES (test code = 1011) 7.5 % EOSINOPHILS (test code = 1012) 2.0 % BASOPHILS (test code = 1013) 0.5 % PLATELET COUNT (test code = 1015) 202 K/UL CBC W/AUTO [id number] 00:00:00 Test Item Value Reference Range Interpretation Comments WBC (test code = 1001) 6.0 K/UL RBC (test code = 1002) 5.50 M/UL HEMOGLOBIN (test code = 1003) 15.7 G/DL HEMATOCRIT (test code = 1004) 45.0 % MCV (test code = 1005) 81.8 fL MCH (test code = 1006) 28.5 PG MCHC (test code = 1007) 34.9 G/DL RDW (test code = 1038) 14.4 % NEUTROPHILS (test code = 1008) 57.2 % LYMPHOCYTES (test code = 1010) 32.8 % MONOCYTES (test code = 1011) 7.5 % EOSINOPHILS (test code = 1012) 2.0 % BASOPHILS (test code = 1013) 0.5 % PLATELET COUNT (test code = 1015) 202 K/UL CBC W/AUTO [id number] 00:00:00 Test Item Value Reference Range Interpretation Comments WBC (test code = 1001) 6.0 K/UL RBC (test code = 1002) 5.50 M/UL HEMOGLOBIN (test code = 1003) 15.7 G/DL HEMATOCRIT (test code = 1004) 45.0 % MCV (test code = 1005) 81.8 fL MCH (test code = 1006) 28.5 PG MCHC (test code = 1007) 34.9 G/DL RDW (test code = 1038) 14.4 % NEUTROPHILS (test code = 1008) 57.2 % LYMPHOCYTES (test code = 1010) 32.8 % MONOCYTES (test code = 1011) 7.5 % EOSINOPHILS (test code = 1012) 2.0 % BASOPHILS (test code = 1013) 0.5 % PLATELET COUNT (test code = 1015) 202 K/UL COMPREHENSIVE METABOLIC [id number] 00:00:00 Test Item Value Reference Range Interpretation Comments GLUCOSE (test code = 2217) 270 MG/DL BUN (test code = 2208) 10 MG/DL CREATININE (test code = 2214) 0.49 MG/DL eGFR AMER. (test code 150 ML/MIN/1.73 = 98016) eGFR NON- AMER. (test 129 ML/MIN/1.73 code = 82382) CALC BUN/CREAT (test code = 20 RATIO 2235) SODIUM (test code = 2231) 136 MEQ/L POTASSIUM (test code = 2228) 4.2 MEQ/L CHLORIDE (test code = 2215) 98 MEQ/L CARBON DIOXIDE (test code = 23 MEQ/L 220) CALCIUM (test code = 2209) 9.7 MG/DL PROTEIN, TOTAL (test code = 7.5 G/DL 2229) ALBUMIN (test code = 2201) 4.9 G/DL CALC GLOBULIN (test code = 2.6 G/DL 2240) CALC A/G RATIO (test code = 1.9 RATIO 2234) BILIRUBIN, TOTAL (test code = 0.8 MG/DL 2207) ALKALINE PHOSPHATASE (test 168 U/L code = 2204) AST (test code = 2218) 12 U/L ALT (test code = 2219) 22 U/L COMPREHENSIVE METABOLIC [id number] 00:00:00 Test Item Value Reference Range Interpretation Comments GLUCOSE (test code = 2217) 270 MG/DL BUN (test code = 2208) 10 MG/DL CREATININE (test code = 2214) 0.49 MG/DL eGFR AMER. (test code 150 ML/MIN/1.73 = 68545) eGFR NON- AMER. (test 129 ML/MIN/1.73 code = 04280) CALC BUN/CREAT (test code = 20 RATIO 2235) SODIUM (test code = 2231) 136 MEQ/L POTASSIUM (test code = 2228) 4.2 MEQ/L CHLORIDE (test code = 2215) 98 MEQ/L CARBON DIOXIDE (test code = 23 MEQ/L 2206) CALCIUM (test code = 2209) 9.7 MG/DL PROTEIN, TOTAL (test code = 7.5 G/DL 2228) ALBUMIN (test code = 2201) 4.9 G/DL CALC GLOBULIN (test code = 2.6 G/DL 2240) CALC A/G RATIO (test code = 1.9 RATIO 2234) BILIRUBIN, TOTAL (test code = 0.8 MG/DL 2207) ALKALINE PHOSPHATASE (test 168 U/L code = 2204) AST (test code = 2218) 12 U/L ALT (test code = 2219) 22 U/L LIPID [id number] 00:00:00 Test Item Value Reference Range Interpretation Comments CHOLESTEROL (test code = 2210) 243 MG/DL TRIGLYCERIDES (test code = 2232) 703 MG/DL HDL CHOLESTEROL (test code = 38 MG/DL 2220) CALC LDL CHOL (test code = 2237) (NOTE) MG/DL RISK RATIO LDL/HDL (test code = (NOTE) RATIO 2238) LIPID [id number] 00:00:00 Test Item Value Reference Range Interpretation Comments CHOLESTEROL (test code = 2210) 243 MG/DL TRIGLYCERIDES (test code = 2232) 703 MG/DL HDL CHOLESTEROL (test code = 38 MG/DL 2220) CALC LDL CHOL (test code = 2237) (NOTE) MG/DL RISK RATIO LDL/HDL (test code = (NOTE) RATIO 2238) HEMOGLOBIN [id number] 00:00:00 Test Item Value Reference Range Interpretation Comments HEMOGLOBIN A1c (test code = 62122) 11.5 % HEMOGLOBIN [id number] 00:00:00 Test Item Value Reference Range Interpretation Comments HEMOGLOBIN A1c (test code = 25356) 11.5 % HEMOGLOBIN [id number] 00:00:00 Test Item Value Reference Range Interpretation Comments HEMOGLOBIN A1c (test code = 25436) 11.5 % CBC W/AUTO [id number] 00:00:00 Test Item Value Reference Range Interpretation Comments WBC (test code = 1001) 6.0 K/UL RBC (test code = 1002) 5.50 M/UL HEMOGLOBIN (test code = 1003) 15.7 G/DL HEMATOCRIT (test code = 1004) 45.0 % MCV (test code = 1005) 81.8 fL MCH (test code = 1006) 28.5 PG MCHC (test code = 1007) 34.9 G/DL RDW (test code = 1038) 14.4 % NEUTROPHILS (test code = 1008) 57.2 % LYMPHOCYTES (test code = 1010) 32.8 % MONOCYTES (test code = 1011) 7.5 % EOSINOPHILS (test code = 1012) 2.0 % BASOPHILS (test code = 1013) 0.5 % PLATELET COUNT (test code = 1015) 202 K/UL CBC W/AUTO [id number] 00:00:00 Test Item Value Reference Range Interpretation Comments WBC (test code = 1001) 6.0 K/UL RBC (test code = 1002) 5.50 M/UL HEMOGLOBIN (test code = 1003) 15.7 G/DL HEMATOCRIT (test code = 1004) 45.0 % MCV (test code = 1005) 81.8 fL MCH (test code = 1006) 28.5 PG MCHC (test code = 1007) 34.9 G/DL RDW (test code = 1038) 14.4 % NEUTROPHILS (test code = 1008) 57.2 % LYMPHOCYTES (test code = 1010) 32.8 % MONOCYTES (test code = 1011) 7.5 % EOSINOPHILS (test code = 1012) 2.0 % BASOPHILS (test code = 1013) 0.5 % PLATELET COUNT (test code = 1015) 202 K/UL CBC W/AUTO [id number] 00:00:00 Test Item Value Reference Range Interpretation Comments WBC (test code = 1001) 6.0 K/UL RBC (test code = 1002) 5.50 M/UL HEMOGLOBIN (test code = 1003) 15.7 G/DL HEMATOCRIT (test code = 1004) 45.0 % MCV (test code = 1005) 81.8 fL MCH (test code = 1006) 28.5 PG MCHC (test code = 1007) 34.9 G/DL RDW (test code = 1038) 14.4 % NEUTROPHILS (test code = 1008) 57.2 % LYMPHOCYTES (test code = 1010) 32.8 % MONOCYTES (test code = 1011) 7.5 % EOSINOPHILS (test code = 1012) 2.0 % BASOPHILS (test code = 1013) 0.5 % PLATELET COUNT (test code = 1015) 202 K/UL COMPREHENSIVE METABOLIC [id number] 00:00:00 Test Item Value Reference Range Interpretation Comments GLUCOSE (test code = 2217) 270 MG/DL BUN (test code = 2208) 10 MG/DL CREATININE (test code = 2214) 0.49 MG/DL eGFR AMER. (test code 150 ML/MIN/1.73 = 22357) eGFR NON- AMER. (test 129 ML/MIN/1.73 code = 55773) CALC BUN/CREAT (test code = 20 RATIO 2235) SODIUM (test code = 2231) 136 MEQ/L POTASSIUM (test code = 2228) 4.2 MEQ/L CHLORIDE (test code = 2215) 98 MEQ/L CARBON DIOXIDE (test code = 23 MEQ/L 2206) CALCIUM (test code = 2209) 9.7 MG/DL PROTEIN, TOTAL (test code = 7.5 G/DL 2228) ALBUMIN (test code = 2201) 4.9 G/DL CALC GLOBULIN (test code = 2.6 G/DL 2240) CALC A/G RATIO (test code = 1.9 RATIO 2234) BILIRUBIN, TOTAL (test code = 0.8 MG/DL 2207) ALKALINE PHOSPHATASE (test 168 U/L code = 2204) AST (test code = 2218) 12 U/L ALT (test code = 2219) 22 U/L COMPREHENSIVE METABOLIC [id number] 00:00:00 Test Item Value Reference Range Interpretation Comments GLUCOSE (test code = 2217) 270 MG/DL BUN (test code = 2208) 10 MG/DL CREATININE (test code = 2214) 0.49 MG/DL eGFR AMER. (test code 150 ML/MIN/1.73 = 98427) eGFR NON- AMER. (test 129 ML/MIN/1.73 code = 91290) CALC BUN/CREAT (test code = 20 RATIO 2235) SODIUM (test code = 2231) 136 MEQ/L POTASSIUM (test code = 2228) 4.2 MEQ/L CHLORIDE (test code = 2215) 98 MEQ/L CARBON DIOXIDE (test code = 23 MEQ/L 2206) CALCIUM (test code = 2209) 9.7 MG/DL PROTEIN, TOTAL (test code = 7.5 G/DL 2228) ALBUMIN (test code = 2201) 4.9 G/DL CALC GLOBULIN (test code = 2.6 G/DL 2240) CALC A/G RATIO (test code = 1.9 RATIO 2234) BILIRUBIN, TOTAL (test code = 0.8 MG/DL 2207) ALKALINE PHOSPHATASE (test 168 U/L code = 2204) AST (test code = 2218) 12 U/L ALT (test code = 2219) 22 U/L LIPID [id number] 00:00:00 Test Item Value Reference Range Interpretation Comments CHOLESTEROL (test code = 2210) 243 MG/DL TRIGLYCERIDES (test code = 2232) 703 MG/DL HDL CHOLESTEROL (test code = 38 MG/DL 2220) CALC LDL CHOL (test code = 2237) (NOTE) MG/DL RISK RATIO LDL/HDL (test code = (NOTE) RATIO 2238) LIPID [id number] 00:00:00 Test Item Value Reference Range Interpretation Comments CHOLESTEROL (test code = 2210) 243 MG/DL TRIGLYCERIDES (test code = 2232) 703 MG/DL HDL CHOLESTEROL (test code = 38 MG/DL 2220) CALC LDL CHOL (test code = 2237) (NOTE) MG/DL RISK RATIO LDL/HDL (test code = (NOTE) RATIO 2238) HEMOGLOBIN [id number] 00:00:00 Test Item Value Reference Range Interpretation Comments HEMOGLOBIN A1c (test code = 00766) 11.5 % HEMOGLOBIN [id number] 00:00:00 Test Item Value Reference Range Interpretation Comments HEMOGLOBIN A1c (test code = 65926) 11.5 % HEMOGLOBIN [id number] 00:00:00 Test Item Value Reference Range Interpretation Comments HEMOGLOBIN A1c (test code = 86889) 11.5 % CBC W/AUTO [id number] 00:00:00 Test Item Value Reference Range Interpretation Comments WBC (test code = 1001) 6.0 K/UL RBC (test code = 1002) 5.50 M/UL HEMOGLOBIN (test code = 1003) 15.7 G/DL HEMATOCRIT (test code = 1004) 45.0 % MCV (test code = 1005) 81.8 fL MCH (test code = 1006) 28.5 PG MCHC (test code = 1007) 34.9 G/DL RDW (test code = 1038) 14.4 % NEUTROPHILS (test code = 1008) 57.2 % LYMPHOCYTES (test code = 1010) 32.8 % MONOCYTES (test code = 1011) 7.5 % EOSINOPHILS (test code = 1012) 2.0 % BASOPHILS (test code = 1013) 0.5 % PLATELET COUNT (test code = 1015) 202 K/UL CBC W/AUTO [id number] 00:00:00 Test Item Value Reference Range Interpretation Comments WBC (test code = 1001) 6.0 K/UL RBC (test code = 1002) 5.50 M/UL HEMOGLOBIN (test code = 1003) 15.7 G/DL HEMATOCRIT (test code = 1004) 45.0 % MCV (test code = 1005) 81.8 fL MCH (test code = 1006) 28.5 PG MCHC (test code = 1007) 34.9 G/DL RDW (test code = 1038) 14.4 % NEUTROPHILS (test code = 1008) 57.2 % LYMPHOCYTES (test code = 1010) 32.8 % MONOCYTES (test code = 1011) 7.5 % EOSINOPHILS (test code = 1012) 2.0 % BASOPHILS (test code = 1013) 0.5 % PLATELET COUNT (test code = 1015) 202 K/UL COMPREHENSIVE METABOLIC [id number] 00:00:00 Test Item Value Reference Range Interpretation Comments GLUCOSE (test code = 2217) 270 MG/DL BUN (test code = 2208) 10 MG/DL CREATININE (test code = 2214) 0.49 MG/DL eGFR AMER. (test code 150 ML/MIN/1.73 = 74817) eGFR NON- AMER. (test 129 ML/MIN/1.73 code = 92589) CALC BUN/CREAT (test code = 20 RATIO 2235) SODIUM (test code = 2231) 136 MEQ/L POTASSIUM (test code = 2228) 4.2 MEQ/L CHLORIDE (test code = 2215) 98 MEQ/L CARBON DIOXIDE (test code = 23 MEQ/L 2205) CALCIUM (test code = 2209) 9.7 MG/DL PROTEIN, TOTAL (test code = 7.5 G/DL 2228) ALBUMIN (test code = 2201) 4.9 G/DL CALC GLOBULIN (test code = 2.6 G/DL 2240) CALC A/G RATIO (test code = 1.9 RATIO 2234) BILIRUBIN, TOTAL (test code = 0.8 MG/DL 2206) ALKALINE PHOSPHATASE (test 168 U/L code = 2204) AST (test code = 2218) 12 U/L ALT (test code = 2219) 22 U/L LIPID [id number] 00:00:00 Test Item Value Reference Range Interpretation Comments CHOLESTEROL (test code = 2210) 243 MG/DL TRIGLYCERIDES (test code = 2232) 703 MG/DL HDL CHOLESTEROL (test code = 38 MG/DL 2219) CALC LDL CHOL (test code = 2237) (NOTE) MG/DL RISK RATIO LDL/HDL (test code = (NOTE) RATIO 2238) HEMOGLOBIN [id number] 00:00:00 Test Item Value Reference Range Interpretation Comments HEMOGLOBIN A1c (test code = 26038) 11.5 % HEMOGLOBIN [id number] 00:00:00 Test Item Value Reference Range Interpretation Comments HEMOGLOBIN A1c (test code = 91217) 11.5 % CBC W/AUTO [id number] 00:00:00 Test Item Value Reference Range Interpretation Comments WBC (test code = 1001) 6.0 K/UL RBC (test code = 1002) 5.50 M/UL HEMOGLOBIN (test code = 1003) 15.7 G/DL HEMATOCRIT (test code = 1004) 45.0 % MCV (test code = 1005) 81.8 fL MCH (test code = 1006) 28.5 PG MCHC (test code = 1007) 34.9 G/DL RDW (test code = 1038) 14.4 % NEUTROPHILS (test code = 1008) 57.2 % LYMPHOCYTES (test code = 1010) 32.8 % MONOCYTES (test code = 1011) 7.5 % EOSINOPHILS (test code = 1012) 2.0 % BASOPHILS (test code = 1013) 0.5 % PLATELET COUNT (test code = 1015) 202 K/UL CBC W/AUTO [id number] 00:00:00 Test Item Value Reference Range Interpretation Comments WBC (test code = 1001) 6.0 K/UL RBC (test code = 1002) 5.50 M/UL HEMOGLOBIN (test code = 1003) 15.7 G/DL HEMATOCRIT (test code = 1004) 45.0 % MCV (test code = 1005) 81.8 fL MCH (test code = 1006) 28.5 PG MCHC (test code = 1007) 34.9 G/DL RDW (test code = 1038) 14.4 % NEUTROPHILS (test code = 1008) 57.2 % LYMPHOCYTES (test code = 1010) 32.8 % MONOCYTES (test code = 1011) 7.5 % EOSINOPHILS (test code = 1012) 2.0 % BASOPHILS (test code = 1013) 0.5 % PLATELET COUNT (test code = 1015) 202 K/UL COMPREHENSIVE METABOLIC [id number] 00:00:00 Test Item Value Reference Range Interpretation Comments GLUCOSE (test code = 2217) 270 MG/DL BUN (test code = 2208) 10 MG/DL CREATININE (test code = 2214) 0.49 MG/DL eGFR AMER. (test code 150 ML/MIN/1.73 = 14744) eGFR NON- AMER. (test 129 ML/MIN/1.73 code = 17539) CALC BUN/CREAT (test code = 20 RATIO 2234) SODIUM (test code = 2231) 136 MEQ/L POTASSIUM (test code = 2228) 4.2 MEQ/L CHLORIDE (test code = 2215) 98 MEQ/L CARBON DIOXIDE (test code = 23 MEQ/L 2205) CALCIUM (test code = 2209) 9.7 MG/DL PROTEIN, TOTAL (test code = 7.5 G/DL 2228) ALBUMIN (test code = 2201) 4.9 G/DL CALC GLOBULIN (test code = 2.6 G/DL 2239) CALC A/G RATIO (test code = 1.9 RATIO 2233) BILIRUBIN, TOTAL (test code = 0.8 MG/DL 2206) ALKALINE PHOSPHATASE (test 168 U/L code = 2204) AST (test code = 2218) 12 U/L ALT (test code = 2219) 22 U/L LIPID [id number] 00:00:00 Test Item Value Reference Range Interpretation Comments CHOLESTEROL (test code = 2210) 243 MG/DL TRIGLYCERIDES (test code = 2232) 703 MG/DL HDL CHOLESTEROL (test code = 38 MG/DL 2219) CALC LDL CHOL (test code = 2237) (NOTE) MG/DL RISK RATIO LDL/HDL (test code = (NOTE) RATIO 2238) HEMOGLOBIN [id number] 00:00:00 Test Item Value Reference Range Interpretation Comments HEMOGLOBIN A1c (test code = 34530) 11.5 % HEMOGLOBIN [id number] 00:00:00 Test Item Value Reference Range Interpretation Comments HEMOGLOBIN A1c (test code = 55078) 11.5 %
[2022-11-05] MEDS ORDERED: FAMOTIDINE 20 MG/2 ML VIAL IV ONE (11:04)
[2022-11-05] MEDS ORDERED: NA CHLORIDE 0.9% 1,000 ML ONE (11:04)
[2022-11-05 11:31] LABS: Absolute Lymphocytes (CBC) 1.7 K/uL (0.7-4.9); Hematocrit 39.6 % (39.6-49.0); Lymphocytes % 30.3 % (15.3-44.8); MCV 79.3 fL (80-100); MPV 8.6 fL (7.6-11.3)
[2022-11-05 11:48] LABS: Albumin 3.7 g/dL (3.4-5.0); Bilirubin Total 0.4 mg/dL (0.2-1.0); Potassium 4.1 mmol/L (3.5-5.1)
--- NOTE | 2022-11-05 11:52 | RAD REPORT ---
EXAM DESCRIPTION: CT - Head Brain Wo Cont - 11/05/2022 11:36 am CLINICAL HISTORY: dizzy Headache, drowsiness, dizziness COMPARISON: Head Brain Wo Cont dated 06/22/2018 TECHNIQUE: All CT scans are performed using dose optimization technique as appropriate and may inclu de automated exposure control or mA/KV adjustment according to patient size. FINDINGS: No intracranial hemorrhage, hydrocephalus or extra-axial fluid collection.No areas of brai n edema or evidence of midline shift. The paranasal sinuses and mastoids are clear. The calvarium is intact. IMPRESSION: No acute intracranial abnormality.
--- NOTE | 2022-11-05 11:57 | RAD REPORT ---
EXAM DESCRIPTION: RAD - Chest Pa And Lat (2 Views) - 11/05/2022 11:51 am CLINICAL HISTORY: fluid retention Chest pain. COMPARISON: Chest Single View dated 06/22/2018 FINDINGS: Mild interstitial pulmonary edema is possible. The heart is mildly prominent. No displaced fractures. IMPRESSION: Mild CHF versus volume overload.
[2022-11-05 12:28] LABS: SARS-COV-2 RT PCR NEGATIVE (NEGATIVE)
--- NOTE | 2022-11-05 13:37 | RAD REPORT ---
EXAM DESCRIPTION: USCarotid Artery Hbajpqgba22/6/2022 1:27 pm CLINICAL HISTORY: Numbness and dizziness COMPARISON: None FINDINGS: The velocity of the right internal carotid artery equals 79 cm/sec. The right ICA/CCA rati o 1 The velocity of the left internal carotid artery equals 74 cm/sec. The left ICA/CCA ratio 0.8 Mild plaque is present within the carotid arteries. The vertebral arteries demonstrate antegrade flow IMPRESSION: Mild plaque within the carotid arteries without evidence of a hemodynamically significan t stenosis NASCET criteria used. Mild 0-49% stenosis Moderate 50-69% stenosis Severe 70-99% stenosis
[2022-11-05] MEDS ORDERED: FUROSEMIDE 20 MG/ 2ML VIAL ONE (13:49)
--- NOTE | 2022-11-05 14:54 | EDPHYS ---
Physician Documentation [facility] Name: Shin Mcnamara Age: 52 yrs Sex: Male : 1970 Arrival Date: 11/05/2022 Time: 10:43 Bed 17 Private MD: ED Physician Clemente Dale HPI: 11/05 11:51 This 52 yrs old Male presents to ER via Ambulatory with complaints of Numbness snw - face/hands. 11:51 The patient presents to the emergency department with feeling swollen, numbness to face snw and arms intermittently over the previous three days. 11:53 Onset: The symptoms/episode began/occurred acutely. Context: occurred at home. snw Associated signs and symptoms: The patient has no apparent associated signs or symptoms. Severity of symptoms: At their worst the symptoms were moderate. Patient's baseline: Neuro: alert and fully oriented, Motor: no deficits, Ambulation: walks without assistance, Speech: normal, The patient has a previous history of DM. Current symptoms: Currently, the patient is not experiencing any symptoms. It is unknown whether or not the patient has had similar symptoms in the past. The patient has been recently seen by a physician: the patient's primary care provider, earlier today, with similar presenting complaints, and was sent to the [facility] Emergency Department for further evaluation. Historical: - Allergies: 13:36 No Known Allergies; vg1 - PMHx: 10:53 Diabetes - NIDDM; jh5 - Immunization history:: Adult Immunizations up to date. - Social history:: Smoking status: Patient denies any tobacco usage or history of. ROS: 11:54 Constitutional: Negative for fever, chills, and weight loss, Eyes: Negative for injury, snw pain, redness, and discharge, ENT: Negative for injury, pain, and discharge, Neck: Negative for injury, pain, and swelling, Cardiovascular: Negative for chest pain, palpitations, and edema, Respiratory: Negative for shortness of breath, cough, wheezing, and pleuritic chest pain. 11:54 Back: Negative for injury and pain, : Negative for injury, bleeding, discharge, and swelling, MS/Extremity: Negative for injury and deformity, Neuro: Negative for headache, weakness, numbness, tingling, and seizure. 11:54 Abdomen/GI: Positive for feeling swollen. 11:54 Skin: Positive for numbness and tingling to face and arms. Exam: 11:55 Constitutional: This is a well developed, well nourished patient who is awake, alert, snw and in no acute distress. Head/Face: Normocephalic, atraumatic. Eyes: Pupils equal round and reactive to light, extra-ocular motions intact. Lids and lashes normal. Conjunctiva and sclera are non-icteric and not injected. Cornea within normal limits. Periorbital areas with no swelling, redness, or edema. ENT: Nares patent. No nasal discharge, no septal abnormalities noted. Tympanic membranes are normal and external auditory canals are clear. Oropharynx with no redness, swelling, or masses, exudates, or evidence of obstruction, uvula midline. Mucous membranes moist. Neck: Trachea midline, no thyromegaly or masses palpated, and no cervical lymphadenopathy. Supple, full range of motion without nuchal rigidity, or vertebral point tenderness. No Meningismus. Chest/axilla: Normal chest wall appearance and motion. Nontender with no deformity. No lesions are appreciated. Cardiovascular: Regular rate and rhythm with a normal S1 and S2. No gallops, murmurs, or rubs. Normal PMI, no JVD. No pulse deficits. Respiratory: Lungs have equal breath sounds bilaterally, clear to auscultation and percussion. No rales, rhonchi or wheezes noted. No increased work of breathing, no retractions or nasal flaring. 11:55 Back: No spinal tenderness. No costovertebral tenderness. Full range of motion. Skin: Warm, dry with normal turgor. Normal color with no rashes, no lesions, and no evidence of cellulitis. MS/ Extremity: Pulses equal, no cyanosis. Neurovascular intact. Full, normal range of motion. 11:55 Abdomen/GI: Inspection: distension, that is mild, Bowel sounds: normal, Palpation: mild abdominal tenderness, in all quadrants. 11:55 Neuro: Orientation: is normal, Mentation: is normal, Memory: is normal, Sensation: numbness, that is mild, of the face, right arm and left arm. Vital Signs: 10:47 BP 152 / 76; Pulse 110; Resp 20; Temp 98.8; Pulse Ox 99% ; Weight 131.54 kg; Height 5 [facility] ft. 5 in. (165.10 cm); Pain 0/10; 11:15 BP 122 / 60; Pulse 99; Resp 19; Pulse Ox 97% on R/A; vg1 12:00 BP 129 / 76; Pulse 94; Resp 24; Pulse Ox 99% on R/A; vg1 13:30 BP 97 / 77; Pulse 93; Resp 20; Pulse Ox 100% on R/A; vg1 14:30 BP 115 / 68; Pulse 97; Resp 24; Pulse Ox 97% on R/A; vg1 10:47 Body Mass Index 48.26 (131.54 kg, 165.10 cm) [facility] MDM: 10:49 Patient medically screened. snw 10:49 Data reviewed:. snw 12 10:55 Order name: CBC with Diff; Complete Time: 11:42 snw 11/05 10:55 Order name: CMP; Complete Time: 11:48 snw 11/05 10:55 Order name: Lipase; Complete Time: 11:48 snw 11/05 10:55 Order name: COVID-19/FLU A+B/RSV; Complete Time: 12:30 snw 12 11:04 Order name: BNP; Complete Time: 12:20 snw 06 11:12 Order name: Glucose, Ancillary Testing; Complete Time: 11:15 EDMS 12 10:55 Order name: EKG; Complete Time: 10:56 snw 11/05 10:55 Order name: CT Head Brain wo Cont; Complete Time: 11:53 snw 11/05 11:05 Order name: Chest Pa And Lat (2 Views) XRAY; Complete Time: 11:58 snw 11/05 12:21 Order name: Echo w/ Doppler snw 11/05 12:25 Order name: US Carotid Artery Bilateral; Complete Time: 13:43 snw 11/05 10:55 Order name: IV Saline Lock; Complete Time: 11:27 snw 11/05 10:55 Order name: Labs collected and sent; Complete Time: 11:27 snw 12 10:55 Order name: EKG - Nurse/Tech; Complete Time: 11:27 snw EC:27 Rate is 100 beats/min. QRS [place] is Normal. MI interval is normal. T waves are Inverted snw in leads III, aVR. Clinical impression: NSR w/ Non-specific ST/T Changes. Administered Medications: 11:23 Drug: Pepcid (famotidine) 20 mg Route: IVP; Site: right antecubital; vg1 11:27 Drug: NS 0.9% 1000 ml Route: IV; Rate: 1 bolus; Site: right antecubital; vg1 13:52 Drug: Lasix (furosemide) 20 mg Route: IVP; Site: right antecubital; em6 Disposition: 18:45 Co-signature as Attending Physician, Clemente Dale MD I agree with the assessment and kdr plan of care. Disposition Summary: 11/05/22 14:53 Discharge Ordered Location: Home snw Condition: Stable snw Diagnosis - Unspecified diastolic (congestive) heart failure snw Followup: snw - With: Emergency Department - When: As needed - Reason: Worsening of condition Followup: snw - With: Private Physician - When: 1 - 2 days - Reason: Recheck today's complaints, Continuance of care, Re-evaluation by your physician Discharge Instructions: - Discharge Summary Sheet snw - Heart Failure, Diagnosis snw - Potassium Content of Foods snw - Paresthesia snw - Form - Daily Diabetes Record snw - Blood Glucose Monitoring, Adult snw - Diabetes Mellitus and Nutrition, Adult snw - Form - Daily Weight Record snw Forms: - Medication Reconciliation Form snw - Thank You Letter snw - Antibiotic Education snw - Prescription Opioid Use snw Prescriptions: - Lasix 20 mg Oral Tablet - take 1 tablet by ORAL route once daily Take in the morning; 20 tablet; Refills: snw 0, Product Selection Permitted - Potassium Chloride 10 mEq Oral Tablet - take 1 tablet by ORAL route every 12 hours; 30 tablet; Refills: 0, Product snw Selection Permitted Signatures: Dispatcher [employer] Clemente Milton MD MD kdr Waters, Shelly, FNP-C [employer]UMENT REPA[employer] Nenita Pérez, RN RN vg1 Debbie Martinez RN RN jh5 Wandy Angulo RN RN em6
--- NOTE | 2022-11-05 14:54 | ER ---
Nurse's Notes [facility] Name: Shin Mcnamara Age: 52 yrs Sex: Male : 1970 Arrival Date: 11/05/2022 Time: 10:43 Bed 17 Private MD: Diagnosis: Unspecified diastolic (congestive) heart failure Presentation: 11/05 10:47 Chief complaint: the auto service writer came straight to registration to get patient for [facility] assessment; registration advised patient to come with the auto service writer and bring signature pages with him. Pt refused and said he will stay right where he is and sign his papers. patient then finishes paperwork and as the auto service writer escorts patient to triage he states he has to pee and wont come into the triage room until he is able to pee. The auto service writer educates patient his symtoms of numbness and dizziness are possibly indicative of stroke and it is important we assess him. Patient states; "I am diabetic and my glucose is 200 so I am going to pee now" and walks towards [facility]. Chief complaint: Patient states: I came from dr fleming in [place]; left face numbness to lips x3 days and also in both hands also 3 days. This numbness comes and goes. This morning I started getting real dizzy. normally my glucose 150; but today its 254. I have eaten today and I have taken insulin today. Coronavirus screen: Vaccine status: Patient reports receiving the 2nd dose of the covid vaccine. Ebola Screen: Patient negative for fever greater than or equal to 101.5 degrees Fahrenheit, and additional compatible Ebola Virus Disease symptoms Patient denies exposure to infectious person. Patient denies travel to an Ebola-affected area in the 21 days before illness onset. Initial Sepsis Screen: Does the patient meet any 2 criteria? No. Patient's initial sepsis screen is negative. Does the patient have a suspected source of infection? No. Patient's initial sepsis screen is negative. Risk Assessment: Do you want to hurt yourself or someone else? Patient reports no desire to harm self or others. 10:47 Method Of Arrival: Ambulatory [facility] 10:47 Acuity: HILDA 3 5 Triage Assessment: 10:53 General: Appears in no apparent distress. uncomfortable, obese, Behavior is calm, jh5 cooperative, appropriate for age. Pain: Denies pain. Historical: - Allergies: 13:36 No Known Allergies; vg1 - PMHx: 10:53 Diabetes - NIDDM; jh5 - Immunization history:: Adult Immunizations up to date. - Social history:: Smoking status: Patient denies any tobacco usage or history of. Screenin:05 Abuse screen: Denies threats or abuse. Nutritional screening: No deficits noted. vg1 Tuberculosis screening: No symptoms or risk factors identified. Fall Risk No fall in past 12 months (0 pts). No secondary diagnosis (0 pts). IV access (20 points). Ambulatory Aid- None/Bed Rest/Nurse Assist (0 pts). Gait- Normal/Bed Rest/Wheelchair (0 pts) Mental Status- Oriented to own ability (0 pts). Total العراقي Fall Scale indicates No Risk (0-24 pts). Assessment: 11:01 Reassessment: pt states his glucose was 298 at home, drove to [facility] where it jh5 was 255, and now here it's 172. He normally takes 32unit injectable pen morning and night at home daily. He did take his injectable pen this morning. 11:05 General: Appears in no apparent distress. comfortable, Behavior is calm, cooperative. vg1 Pain: Complains of pain in head Pain currently is 7 out of 10 on a pain scale. Pain began 2-3 days ago. Neuro: Level of Consciousness is awake, alert, obeys commands, Oriented to person, place, time, situation, Hha are equal bilaterally Moves all extremities. Gait is steady, Speech is normal, Facial symmetry appears normal, Reports blurred vision dizziness, headache numbness in left side of face and lips. Cardiovascular: Patient's skin is warm and dry. Respiratory: Airway is patent Respiratory effort is even, unlabored. GI: Abdomen is round obese, Reports nausea, Patient currently denies vomiting. : No signs and/or symptoms were reported regarding the genitourinary system. EENT: No signs and/or symptoms were reported regarding the EENT system. Derm: Skin is pink, warm \\T\\ dry. Musculoskeletal: Circulation, motion, and sensation intact. 12:00 Reassessment: Patient appears in no apparent distress at this time. No changes from vg1 previously documented assessment. Patient and/or family updated on plan of care and expected duration. Pain level reassessed. Patient is alert, oriented x 3, equal unlabored respirations, skin warm/dry/pink. 13:29 Reassessment: [place] back [place]. Reassessment: Patient appears in no apparent vg1 distress at this time. No changes from previously documented assessment. Patient and/or family updated on plan of care and expected duration. Pain level reassessed. Patient is alert, oriented x 3, equal unlabored respirations, skin warm/dry/pink. Patient denies pain at this time. Patient states feeling better. 13:37 Reassessment: Echo at bedside. vg1 14:38 Reassessment: Patient appears in no apparent distress at this time. Patient and/or vg1 family updated on plan of care and expected duration. Pain level reassessed. Patient is alert, oriented x 3, equal unlabored respirations, skin warm/dry/pink. Patient denies pain at this time. Vital Signs: 10:47 BP 152 / 76; Pulse 110; Resp 20; Temp 98.8; Pulse Ox 99% ; Weight 131.54 kg; Height 5 [facility] ft. 5 in. (165.10 cm); Pain 0/10; 11:15 BP 122 / 60; Pulse 99; Resp 19; Pulse Ox 97% on R/A; vg1 12:00 BP 129 / 76; Pulse 94; Resp 24; Pulse Ox 99% on R/A; vg1 13:30 BP 97 / 77; Pulse 93; Resp 20; Pulse Ox 100% on R/A; vg1 14:30 BP 115 / 68; Pulse 97; Resp 24; Pulse Ox 97% on R/A; vg1 10:47 Body Mass Index 48.26 (131.54 kg, 165.10 cm) [facility] ED Course: 10:43 Patient arrived in ED. as 10:46 Dia Radford FNP-C is PHCP. snw 10:46 Clemente Dale MD is Attending Physician. snw 10:53 Triage completed. [facility] 10:53 Arm band placed on right wrist. [facility] 10:57 Nenita Pérez, RN is Primary Nurse. vg1 11:05 Patient has correct armband on for positive identification. Placed in gown. Bed in low vg1 position. Call light in reach. Side rails up X 1. Adult w/ patient. Client placed on continuous cardiac and pulse oximetry monitoring. NIBP monitoring applied. 11:20 Initial lab(s) drawn, by me, sent to lab. Inserted saline lock: 22 gauge in right Blood vg1 collected. 11:27 COVID-19/FLU A+B/RSV Sent. vg1 11:38 CT Head Brain wo Cont In Process Unspecified. EDMS 11:53 Chest Pa And Lat (2 Views) XRAY In Process Unspecified. EDMS 13:13 US Carotid Artery Bilateral In Process Unspecified. EDMS 15:23 IV discontinued, intact, bleeding controlled, No redness/swelling at site. Pressure jh5 dressing applied. Administered Medications: 11:23 Drug: Pepcid (famotidine) 20 mg Route: IVP; Site: right antecubital; vg1 11:27 Drug: NS 0.9% 1000 ml Route: IV; Rate: 1 bolus; Site: right antecubital; vg1 13:52 Drug: Lasix (furosemide) 20 mg Route: IVP; Site: right antecubital; em6 Medication: 13:36 VIS not applicable for this client. vg1 Outcome: 14:53 Discharge ordered by . snw 15:23 Discharged to home ambulatory, with significant other. jh5 15:23 Condition: good 15:23 Discharge instructions given to patient, family, Instructed on discharge instructions, follow up and referral plans. medication usage, safety practices, Demonstrated understanding of instructions, follow-up care, medications, Prescriptions given X 2. 15:24 Patient left the ED. 5 Signatures: Dispatcher [employer] EDMS Dia Radford, HANDLE ATTACHER-C HANDLE ATTACHER-Rachel [place] RN RN vg1 Debbie Martinez RN RN jh5 Wandy Angulo RN RN em6 Corrections: (The following items were deleted from the chart) 13:37 13:29 Reassessment: Patient appears in no apparent distress at this time. No changes vg1 from previously documented assessment. Patient and/or family updated on plan of care and expected duration. Pain level reassessed. Patient is alert, oriented x 3, equal unlabored respirations, skin warm/dry/pink. vg1
[2022-11-05 18:23] VITALS: TEMP 98.8
[2022-11-05 18:41] VITALS: BP 115/68; O2SAT 97
--- NOTE | 2022-11-06 06:42 | ECHO ---
HEIGHT: 5 ft 5 in WEIGHT: 290 lb 0 oz DATE OF STUDY: 11/05/[address]: Dia Webber SCHOLARSHIP COUNSELOR-BC 2-DIMENSIONAL: YES M.MODE: YES DOPPLER: YES COLOR FLOW: YES TDS: PORTABLE: YES DEFINITY: BUBBLE STUDY: DIAGNOSIS: CONGESTIVE HEART FAILURE CARDIAC HISTORY: CATHERIZATION: NO SURGERY: NO PROSTHETIC VALVE: NO PACEMAKER: NO MEASUREMENTS (cm) DIASTOLIC (NORMALS) SYSTOLIC (NORMALS) IVSd 1.2 (0.6-1.2) LA Diam 3.4 (1.9-4.0) LVEF 54% LVIDd 3.9 (3.5-5.7) LVIDs 2.8 (2.0-3.5) %FS 28% LVPWd 1.1 (0.6-1.2) Ao Diam 2.9 (2.0-3.7) 2 DIMENSIONAL ASSESSMENT: RIGHT ATRIUM: NORMAL LEFT ATRIUM: NORMAL RIGHT VENTRICLE: NORMAL LEFT VENTRICLE: NORMAL TRICUSPID VALVE: MILD TRICUSPID REGURGITATION MITRAL VALVE: MILD MITRAL REGURGITATION PULMONIC VALVE: NORMAL AORTIC VALVE: MILD AORTIC INSUFFICIENCY PERICARDIAL EFFUSION: NONE AORTIC ROOT: NORMAL LEFT VENTRICULAR WALL MOTION: NORMAL DOPPLER/COLOR FLOW: SEE BELOW COMMENTS: 1. NORMAL LEFT VENTRICULAR EJECTION FRACTION 55-60% 2. NORMAL WALL MOTION 3. MILD MITRAL REGURGITATION/ MILD AORTIC INSUFFICIENCY 4. MILD TRICUSPID REGURGITATION TECHNOLOGIST: RANULFO HUTCHINS
--- NOTE | 2022-11-07 05:48 | EKG ---
Test Date: 2022-11-05 Test Time: 11:10:25 Business Services Officer: MEASUREMENT RESULTS: Intervals: Rate: 100 TN: 144 QRSD: 76 QT: 352 QTc: 454 [place]: P: 53 TN: 144 QRS: 61 T: 11 INTERPRETIVE STATEMENTS: Sinus rhythm with premature atrial complexes with aberrant conduction Possible Inferior infarct, age undetermined Abnormal ECG Compared to ECG 06/22/2018 14:36:53 Atrial premature complex(es) now present Aberrant conduction of supraventricular beat(s) now present Myocardial infarct finding now present Sinus bradycardia no longer present Electronically Signed On 11-07-22 05:44:59 ELECTRIC APPLIANCE INSTALLER by Bryan Onofre
== END 2022-11-05 15:24 | disposition home or self-care (01) ==
LOC: ER 10:42
DX: I50.30 Unspecified diastolic (congestive) heart failure (principal); Z20.822 Contact with and (suspected) exposure to COVID-19; E11.9 Type 2 diabetes mellitus without complications
CPT/HCPCS: 93005; 93306; 85025; 36415; 82947; 83690; 80053; 83880; 0241U; 70450; 71046; 93880; 96375; 96374; 99284; J1940; J7030

== ENCOUNTER 2025-04-20 10:01 | Observation (INO) | payer OTHER ==
[2025-04-20 10:30] LABS: Absolute Eosinophils 0.1 K/uL (0-0.5); Absolute Lymphocytes (CBC) 1.6 K/uL (0.7-4.9); Absolute Monocytes 0.5 K/uL (0.1-1.3); Absolute Neutrophil 3.2 K/uL (1.8-8.0); Basophils % 0.4 % (0-1.3); Eosinophils % 1.8 % (0-4.4); Hematocrit 41.2 % (39.6-49.0); Hemoglobin 13.8 g/dL (13.6-17.9); Lymphocytes % 29.2 % (15.3-44.8); MCH 26.3 pg (27.0-35.0); MCHC 33.6 g/dL (32.0-36.0); MCV 78.3 fL (80-100); MPV 9.3 fL (7.6-11.3); Neutrophils % 59.6 % (41.7-73.7); Nucleated Red Blood Cells % 0.1 % (0-0); Platelets 151 thou/uL (152-406); RBC Red Blood Cell Count 5.26 M/uL (4.33-5.43); Red Cell Distribution Width 17.5 % (12.1-15.2)
--- OUTSIDE RECORDS SUMMARY | 2025-04-20 10:32 | XMS REPORT | Continuity of Care Document ---
Author Name Unknown Address [address] [facility] [address] [place] [address] Organization [facility] [place] Address [address] [facility] [address] [place] [address] Care Team Providers Care Nursing Surgical Services Director Name Role Phone Pcp, Patient Does Not Have A Primary Care Physic leola MD JUSTINO Attending Clinician Unavailab EDOUARD Edge Attending Clinician Unavailable Erwin Stringer MD Attending Clinician [phone] KAROLINA POOL Attending Clinician Unavailable CESAR CARTER Attending Clinician Unavailable SILVINO GRIGGS Attending Clinician Unavailab neal Payers Payer Name Policy Type Policy Number Effective Date Expirati on Date Source [facility] TITA GUZMAN COPAY FOCUS 9 [id number] 2024 00:00:00 [employer] [facility] [employer] 94 ON 9 [id number] 2024 00:00:00 Allergies, Adverse Reactions, Alerts Allergy Name Allergy Type Status Severity Reaction(s) Onset Date Inactive Date Treating Clinician Comments Source none (Not Checked) Propensi ty to adverse reaction to drug Active 08-24 00:00: 00 Teodoro Cantu Social History Social Habit Start Date Stop Date Quantity Comments Source Sexual orientation [facility] Sex assigned at 1970 00:00:00 1970 00:00:00 [facility] Smoking Status Start Date Stop Date Source Tobacco smoking consumption unknown [facility] Medications Ordered Medication Name Filled Medication Name Start Date Stop Date Current Medication? Ordering Clinician Indication Dosage Frequency Signature (SIG) Comments Components Source Lantus Solostar U-100 Insulin 100 unit/mL (3 mL) subcutaneou s pen 2024-0 5-05 00:00: 00 Yes (3 mL) Teodoro Cantu atorvastati n 80 mg tablet 0 5-05 00:00: 00 Yes 1mg Teodoro Cantu pioglitazon e 45 mg tablet 2024-0 5-05 00:00: 00 Yes 1mg Teodoro Cantu allopurinol 300 mg tablet 2024-0 5-05 00:00: 00 Yes 1mg Teodoro Cantu ezetimibe 10 mg tablet 2024-0 5-05 00:00: 00 Yes 1mg Teodoro Cantu bupropion HCl XL 150 mg 24 hr tablet, extended release 2024-0 5-05 00:00: 00 Yes 1mg Teodoro Cantu Jardiance 25 mg tablet 2024-0 5-05 00:00: 00 Yes 1mg Teodoro Cantu Lantus Solostar U-100 Insulin 100 unit/mL (3 mL[facility] 2-17 00:00: 00 Yes (3 mL) Teodoro Cantu atorvastati n 80 mg tablet 2024-0 2-17 00:00: 00 Yes 1mg Teodoro Cantu pioglitazon e 45 mg tablet 2024-0 2-17 00:00: 00 Yes 1mg Teodoro Cantu terbinafine HCl 250 mg tablet 2024-0 2-17 00:00: 00 Yes 1mg Teodoro Cantu allopurinol 300 mg tablet 2024-0 2-17 00:00: 00 Yes 1mg Teodoro Cantu ezetimibe 10 mg tablet 2024-0 2-17 00:00: 00 Yes 1mg Teodoro Cantu bupropion HCl XL 150 mg 24 hr tablet, extended release 5-0 2-17 00:00: 00 Yes 1mg Teodoro Cantu Jardiance 25 mg tablet 2024-0 2-17 00:00: 00 Yes 1mg Teodoro Cantu cyclobenzap rine 10 mg tablet -17 00:00: 00 Yes 1mg Teodoro Cantu Jardiance 25 mg tablet - 00:00: 00 Yes 1mg Teodoro Cantu testosteron e cypionate 100 mg/mL intramuscul ar oil - 00:00: 00 Yes 1mg/mL Teodoro Cantu pantoprazol e 40 mg tablet,wilner yed release 2023-12- 00:00: 00 Yes 1mg Teodoro Cantu ezetimibe 10 mg tablet 2023-12 00:00: 00 Yes 1mg Teodoro Cantu cetirizine 10 mg tablet 2023-12- 00:00: 00 Yes 1mg Teodoro Cantu prednisone 5 mg tablet 2023-12- 00:00: 00 Yes 1mg Teodoro Cantu pioglitazon e 45 mg tablet 2023-12- 00:00: 00 Yes 1mg Teodoro Cantu Jardiance 25 mg tablet 2023-12- 00:00: 00 Yes 1mg Teodoro Cantu fluticasone propionate 50 mcg/actuati on nasal spray,suspe nsion 2023-12- 00:00: 00 Yes 2mcg/ac tuation Teodoro Cantu Bromfed DM 2 mg-30 mg-10 mg/5 mL oral syrup 2023-12- 00:00: 00 Yes 10mg/5 mL Teodoro Cantu terbinafine HCl 250 mg tablet 2023-12 00:00: 00 Yes 1mg Teodoro Cantu allopurinol 300 mg tablet 2023-12 00:00: 00 Yes 1mg Teodoro Cantu Lantus Solostar U-100 Insulin 100 unit/mL (3 mL) subcutaneou s pen 2023-12 00:00: 00 Yes (3 mL) Teodoro Cantu meloxicam 15 mg tablet 2023-12- 00:00: 00 Yes 1mg Teodoro Cantu cyclobenzap rine 10 mg tablet 2023-12 00:00: 00 Yes 1mg Teodoro Cantu moxifloxaci n 0.5 % eye drops 2023-12- 00:00: 00 Yes 1% Teodoro Cantu erythromyci n 5 mg/gram (0.5 %) eye ointment 2023-12 00:00: 00 Yes 1(0.5 %) Teodoro Cantu prednisone 20 mg tablet 2023-12 00:00: 00 Yes 2mg Teodoro Cantu prednisone 20 mg tablet 2023-12 00:00: 00 Yes 2mg Teodoro Cantu acyclovir 400 mg tablet 08-30 00:00: 00 Yes 1mg Teodoro Cantu atorvastati n 80 mg tablet 08-24 00:00: 00 Yes 1mg Teodoro Cantu pioglitazon e 45 mg tablet 08-24 00:00: 00 Yes 1mg Teodoro Cantu bupropion HCl XL 150 mg 24 hr tablet, extended release 08-24 00:00: 00 Yes 1mg Teodoro Cantu Jardiance 25 mg tablet 08-24 00:00: 00 Yes 1mg Teodoro Cantu metformin 1,000 mg tablet 08-24 00:00: 00 Yes 1mg Teodoro Cantu TAKE 1 TABLET BY MOUTH TWICE DAILY. 01-13 00:00: 00 03-22 00:00 :00 No 1000 Teodoro Cantu INJECT 0.5MG WEEKLY 12-19 00:00: 00 03-22 00:00 :00 No 23 Teodoro Cantu TAKE 1 TABLET DAILY. 12-02 00:00: 00 Yes 150 Teodoro Cantu TAKE 1 TABLET BY MOUTH DAILY 12-02 00:00: 00 Yes 80 Teodoro Cantu TAKE 1 TABLET DAILY. 12-02 00:00: 00 Yes 81 Teodoro Cantu INJECT 1 ML SUBCUTANEOU SLY WEEKLY. 12-02 00:00: 00 Yes 43 Teodoro Cantu TAKE 1 TABLET BY MOUTH TWICE DAILY. 12-02 00:00: 00 03-22 00:00 :00 No 1000 Teodoro Cantu TAKE 1 TABLET BY MOUTH TWICE DAILY. 2022-12 00:00: 00 03-22 00:00 :00 No 1000 Teodoro Cantu TAKE 1 TABLET BY MOUTH AT BEDTIME 2022-12 2-29 00:00: 00 03-22 00:00 :00 No 80 Teodoro Cantu INJECT 1 ML SUBCUTANEOU SLY WEEKLY. 08-25 00:00: 00 03-22 00:00 :00 No 43 Teodoro Cantu TAKE 1 TABLET BY MOUTH ONCE DAILY 08-25 00:00: 00 03-22 00:00 :00 No 45 Teodoro Canut ATORVASTATI N 80MG 08-19 00:00: 00 03-22 00:00 :00 No [id number] Teodoro Cantu METFORMIN 1000MG 08-12 00:00: 00 03-22 00:00 :00 No Teodoro Cantu CYCLOBENZAP R 10MG 07-22 00:00: 00 Yes Teodoro Cantu 1 TAB PO HS 07-21 00:00: 00 Yes 10 Teodoro Cantu USE DIRECTED ON PACKAGE 07-21 00:00: 00 03-22 00:00 :00 No 4 Teodoro Cantu TAKE 1 TABLET DAILY. 07-21 00:00: 00 03-22 00:00 :00 No 15 Teodoro Cantu USE 1 SPRAY IN EACH NOSTRIL ONCE DAILY. 07-16 00:00: 00 Yes 50 Teodoro Cantu CETIRIZINE 10MG 07-16 00:00: 00 Yes Teodoro Cantu PHENTERMINE 37.5MG 07-16 00:00: 00 Yes 375 Teodoro Cantu INJECT 1 ML SUBCUTANEOU SLY WEEKLY. 07-16 00:00: 00 03-22 00:00 :00 No 43 Teodoro Cantu TAKE 1 TABLET DAILY NEEDED. 07-16 00:00: 00 03-22 00:00 :00 No 10 Teodoro Cantu TAKE 1 TABLET DAILY. 816 00:00: 00 03-22 00:00 :00 No 150 Teodoro Cantu TAKE 1 TABLET DAILY. 202307-10 00:00: 00 03-22 00:00 :00 No [id number] Teodoro Cantu TAKE 1 CAPSULE EVERY MORNING. 07-10 00:00: 00 03-22 00:00 :00 No 375 Teodoro Cantu PHENTERMINE 37.5 MG CAPSULE 07-09 00:00: 00 Yes 375 Teodoro Cantu OZEMP .25/.5 2MG/3ML PEN 07-08 00:00: 00 03-22 00:00 :00 No Teodoro Cantu LEVEMIR FLEX 100U/ML PEN 07-07 00:00: 00 Yes Teodoro Cantu POT CL MICRO 10MEQ ER 07-07 00:00: 00 Yes Teodoro Cantu FUROSEMIDE 20MG 07-07 00:00: 00 Yes Teodoro Cantu TAKE 1 TABLET BY MOUTH TWICE A DAY 07-05 00:00: 00 03-22 00:00 :00 No 2 Teodoro Cantu TAKE 1 TABLET BY MOUTH AT BEDTIME 07-05 00:00: 00 03-22 00:00 :00 No 80 Teodoro Cantu METFORMIN HCL 1,000 MG 07-05 00:00: 00 03-22 00:00 :00 No 1000 Teodoro Cantu OZEMP .25/.5 2MG/3ML PEN 05-22 00:00: 00 03-22 00:00 :00 No Teodoro Cantu INJECT 20 UNITS TWICE A DAY 05-17 00:00: 00 03-22 00:00 :00 No 100 Teodoro Cantu LISINOPRIL 2.5MG 04-30 00:00: 00 Yes Teodoro Cantu FUROSEMIDE 20MG 04-30 00:00: 00 Yes Teodoro Cantu GLIMEPIRIDE 2MG 04-30 00:00: 00 Yes 2000 Teodoro Cantu TAKE 1 TABLET BY MOUTH TWICE DAILY. 04-30 00:00: 00 03-22 00:00 :00 No 1000 Teodoro Cantu ATORVASTATI N 80MG 2023-0 5-31 00:00: 00 03-22 00:00 :00 No [id number] Teodorojaun Cantu OZEMPIC 3ML 0.25/0.5 PEN 4-25 00:00: 00 03-22 00:00 :00 No Teodoro Echo Cantu INJECT 0.25MG WEEKLY -22 00:00: 00 03-22 00:00 :00 No 23 Teodorojaun Cantu LEVEMIR FLEX 100U/ML PEN 4-11 00:00: 00 Yes Teodorojaun Cantu POT CHLORIDE 10MEQ ER 2-06 00:00: 00 Yes Teodorojaun Cantu INJECT UNITS BELOW THE SKIN TWICE A DAY 20 UNITS TWICE A DAY 2-06 00:00: 00 03-22 00:00 :00 No 100 Teodoro Cantu TAKE 1 TABLET AT BEDTIME. 2-06 00:00: 00 03-22 00:00 :00 No 80 Teodoro Cantu TAKE 1 TABLET TWICE DAILY. 2-06 00:00: 00 03-22 00:00 :00 No 10 Teodoro Cantu TAKE 1 TABLET DAILY. 2-06 00:00: 00 03-22 00:00 :00 No 20 Teodorojaun Cantu TAKE 1 TABLET BY MOUTH TWICE A DAY 2-06 00:00: 00 03-22 00:00 :00 No 2 Teodoro Cantu TAKE 1 CAPSULE EVERY MORNING DAILY. 2-06 00:00: 00 03-22 00:00 :00 No 40 Teodoro Cantu TAKE 1 TABLET DAILY, CAN TAKE AN ADDITIONAL TAB NEEDED 2-06 00:00: 00 03-22 00:00 :00 No 100 Teodorojaun Cantu LEVEMIR FLEXTOUC PEN 1-17 00:00: 00 Yes Teodoro Cantu TAKE 1 TABLET BY MOUTH TWICE A DAY 1-17 00:00: 00 03-22 00:00 :00 No Teodoro Cantu TAKE 1 TABLET AT BEDTIME. 2021-12 2-17 00:00: 00 03-22 00:00 :00 No Teodoro F Pepe Dose Unknown 2021-12 2- 00:00: 00 Yes Teodoro F Pepe Dose Unknown 2021-12 2- 00:00: 00 Yes Teodoro F Pepe Dose Unknown 2021-12 2- 00:00: 00 Yes Teodoro F Pepe Dose Unknown 2021-12 2- 00:00: 00 03-22 00:00 :00 No Teodoro F Pepe Dose Unknown 2021-12 2- 00:00: 00 03-22 00:00 :00 No Teodoro F Pepe Dose Unknown 2021-12 2 00:00: 00 03-22 00:00 :00 No Teodoro F Pepe Dose Unknown 2021-12 0-12 00:00: 00 Yes Teodoro Echo Cantu TAKE 1 TABLET BY MOUTH TWICE A DAY 2021-12 0-12 00:00: 00 No TAKE 1 TABLET BY MOUTH TWICE A DAY 2021-12 0- 00:00: 00 No TAKE 1 TABLET BY MOUTH TWICE A DAY 2021-12 0 00:00: 00 No TAKE 1 CAPSULE EVERY MORNING DAILY. 2021-12 0-12 00:00: 00 03-22 00:00 :00 No 40 Teodoro F Pepe Dose Unknown 8-09 00:00: 00 Yes Teodoro F Pepe Dose Unknown 8-09 00:00: 00 No Dose Unknown 8-09 00:00: 00 No Dose Unknown 8-09 00:00: 00 No Dose Unknown 8-04 00:00: 00 Yes Teodoro cEho Cantu TAKE 1 TABLET TWICE DAILY. 8-04 00:00: 00 No 1000 TAKE 1 TABLET TWICE DAILY. 8-04 00:00: 00 No 1000 TAKE 1 TABLET TWICE DAILY. 8-04 00:00: 00 No 1000 TAKE 1 TABLET TWICE DAILY. 8-04 00:00: 00 No 1000 Dose Unknown 8-03 00:00: 00 Yes Teodoro Cantu TAKE 1 TABLET TWICE DAILY. 8-03 00:00: 00 Yes 1000 Teodoro Cantu TAKE 1 CAPSULE EVERY MORNING DAILY. 8- 00:00: 00 Yes 40 Teodorojaun Cantu cyclobenzap rine 10 mg tablet 07-03 00:00: 00 No 1mg TAKE 1 TABLET TWICE DAILY. 07-03 00:00: 00 No 1000 TAKE 1 CAPSULE EVERY MORNING DAILY. 07-03 00:00: 00 No 40 cyclobenzap rine 10 mg tablet 07-03 00:00: 00 No 1mg TAKE 1 TABLET TWICE DAILY. 07-03 00:00: 00 No 1000 TAKE 1 CAPSULE EVERY MORNING DAILY. 07-03 00:00: 00 No 40 cyclobenzap rine 10 mg tablet 07-03 00:00: 00 No 1mg TAKE 1 TABLET TWICE DAILY. 07-03 00:00: 00 No 1000 TAKE 1 CAPSULE EVERY MORNING DAILY. 07-03 00:00: 00 No 40 cyclobenzap rine 10 mg tablet 07-03 00:00: 00 No 1mg TAKE 1 TABLET TWICE DAILY. 07-03 00:00: 00 No 1000 TAKE 1 CAPSULE EVERY MORNING DAILY. 07-03 00:00: 00 No 40 Dose Unknown 06-28 00:00: 00 Yes Teodoro Cantu clomiphene citrate 50 mg tablet 06-28 00:00: 00 No 5mg clomiphene citrate 50 mg tablet 06-28 00:00: 00 No 5mg clomiphene citrate 50 mg tablet 06-28 00:00: 00 No 5mg clomiphene citrate 50 mg tablet 06-28 00:00: 00 No 5mg Dose Unknown 06-26 00:00: 00 Yes Teodoro Cantu TAKE 1 TABLET BY MOUTH TWICE A DAY 06-26 00:00: 00 Yes Teodoro Cantu metformin 1,000 mg tablet 06-26 00:00: 00 Yes 1mg Teodoro Cantu Dose Unknown 06-26 00:00: 00 Yes Teodoro Cantu Dose Unknown 06-26 00:00: 00 Yes Teodoro Cantu Dose Unknown 06-26 00:00: 00 Yes Teodoro Cantu TAKE 1 CAPSULE EVERY MORNING DAILY. 06-26 00:00: 00 Yes 40 Teodoro Cantu Levemir FlexTouch U-100 Insulin 100 unit/mL (3 mL) subcutaneou s pen 06-26 00:00: 00 No 20(3 mL) Dose Unknown 06-26 00:00: 00 No metformin 1,000 mg tablet 06-26 00:00: 00 No 1mg TAKE 1 TABLET BY MOUTH TWICE A DAY 06-26 00:00: 00 No atorvastati n 80 mg tablet 06-26 00:00: 00 No 1mg omeprazole 40 mg capsule,del ayed release 06-26 00:00: 00 No 1mg TAKE 1 CAPSULE EVERY MORNING DAILY. 06-26 00:00: 00 No 40 Levemir FlexTouch U-100 Insulin 100 unit/mL (3 mL) subcutaneou s pen 06-26 00:00: 00 No 20(3 mL) Dose Unknown 06-26 00:00: 00 No metformin 1,000 mg tablet 06-26 00:00: 00 No 1mg TAKE 1 TABLET BY MOUTH TWICE A DAY 06-26 00:00: 00 No atorvastati n 80 mg tablet 06-26 00:00: 00 No 1mg omeprazole 40 mg capsule,del ayed release 06-26 00:00: 00 No 1mg TAKE 1 CAPSULE EVERY MORNING DAILY. 06-26 00:00: 00 No 40 Levemir FlexTouch U-100 Insulin 100 unit/mL (3 mL) subcutaneou s pen 06-26 00:00: 00 No 20(3 mL) Dose Unknown 06-26 00:00: 00 No metformin 1,000 mg tablet 06-26 00:00: 00 No 1mg TAKE 1 TABLET BY MOUTH TWICE A DAY 06-26 00:00: 00 No atorvastati n 80 mg tablet 06-26 00:00: 00 No 1mg omeprazole 40 mg capsule,del ayed release 06-26 00:00: 00 No 1mg TAKE 1 CAPSULE EVERY MORNING DAILY. 06-26 00:00: 00 No 40 Levemir FlexTouch U-100 Insulin 100 unit/mL (3 mL) subcutaneou s pen 06-26 00:00: 00 No 20(3 mL) lisinopril 2.5 mg tablet 06-26 00:00: 00 No 1mg metformin 1,000 mg tablet 06-26 00:00: 00 No 1mg glimepiride 2 mg tablet 06-26 00:00: 00 No 1mg atorvastati n 80 mg tablet 06-26 00:00: 00 No 1mg omeprazole 40 mg capsule,del ayed release 06-26 00:00: 00 No 1mg TAKE 1 CAPSULE EVERY MORNING DAILY. 06-26 00:00: 00 No 40 Dose Unknown 0 06-10 00:00: 00 Yes Teodoro Cantu Dose Unknown 2021-0 06-10 00:00: 00 No Dose Unknown 0 06-10 00:00: 00 No Dose Unknown 0 06-10 00:00: 00 No Dose Unknown 2021-0 06-10 00:00: 00 No Dose Unknown 2021-0 06-04 00:00: 00 Yes Teodoro Cantu Dose Unknown 0 06-04 00:00: 00 Yes Teodoro Cantu Dose Unknown 0 06-04 00:00: 00 Yes Teodoro Cantu Dose Unknown 2021-0 06-04 00:00: 00 No Dose Unknown 2021-0 06-04 00:00: 00 No Dose Unknown 2021-0 06-04 00:00: 00 No Dose Unknown 2021-0 06-04 00:00: 00 No Dose Unknown 2-0 06-04 00:00: 00 No Dose Unknown 2021-0 06-04 00:00: 00 No Dose Unknown 2021-0 06-04 00:00: 00 No Dose Unknown 2021-0 06-04 00:00: 00 No Dose Unknown 2021-0 06-04 00:00: 00 No Dose Unknown 0 06-04 00:00: 00 No Dose Unknown 0 7-05 00:00: 00 No Dose Unknown 0 7-05 00:00: 00 No Dose Unknown 0 14 00:00: 00 Yes Teodoro Cantu testosteron e cypionate 200 mg/mL intramuscul ar oil 0 -14 00:00: 00 Yes mg/mL Teodoro Cantu sildenafil 100 mg tablet 0 14 00:00: 00 No 1mg testosteron e cypionate 200 mg/mL intramuscul ar oil 0 14 00:00: 00 No mg/mL sildenafil 100 mg tablet 0 14 00:00: 00 No 1mg testosteron e cypionate 200 mg/mL intramuscul ar oil 0 14 00:00: 00 No mg/mL sildenafil 100 mg tablet 0 14 00:00: 00 No 1mg testosteron e cypionate 200 mg/mL intramuscul ar oil 0 14 00:00: 00 No mg/mL sildenafil 100 mg tablet 0 14 00:00: 00 No 1mg testosteron e cypionate 200 mg/mL intramuscul ar oil 0 14 00:00: 00 No mg/mL sildenafil 100 mg tablet 0 -18 00:00: 00 Yes 1mg Teodoro Cantu sildenafil 100 mg tablet 0 -18 00:00: 00 No 1mg sildenafil 100 mg tablet 0 -18 00:00: 00 No 1mg sildenafil 100 mg tablet 0 -18 00:00: 00 No 1mg sildenafil 100 mg tablet 0 -18 00:00: 00 No 1mg lisinopril 2.5 mg tablet -15 00:00: 00 Yes 1mg Teodoro Cantu metformin 1,000 mg tablet -15 00:00: 00 Yes 1mg Teodoro Cantu glimepiride 2 mg tablet -15 00:00: 00 Yes 1mg Teodoro Cantu atorvastati n 80 mg tablet 3-15 00:00: 00 Yes 1mg eTodoro Cantu Dose Unknown -15 00:00: 00 Yes Teodoro Cantu omeprazole 40 mg capsule,del ayed release 2021-0 3-15 00:00: 00 Yes 1mg Teodoro Cantu Dose Unknown 0 3-15 00:00: 00 Yes Teodoro Cantu Dose Unknown 0 3-15 00:00: 00 Yes Teodoro Cantu Dose Unknown 0 3-15 00:00: 00 Yes Teodoro Cantu Dose Unknown 0 3-15 00:00: 00 Yes Teodoro Cantu Dose Unknown 0 3-15 00:00: 00 Yes Teodoro Cantu Dose Unknown 0 3-15 00:00: 00 Yes Teodoro Cantu Dose Unknown 0 3-15 00:00: 00 Yes Teodoro Cantu Dose Unknown 0 3-15 00:00: 00 Yes Teodoro Canut hydrochloro thiazide 50 mg tablet 0 3-15 00:00: 00 No 1mg lisinopril 2.5 mg tablet 2021-0 3-15 00:00: 00 No 1mg metformin 1,000 mg tablet 2021-0 3-15 00:00: 00 No 1mg glimepiride 2 mg tablet 2021-0 3-15 00:00: 00 No 1mg atorvastati n 80 mg tablet 2021-0 3-15 00:00: 00 No 1mg omeprazole 40 mg capsule,del ayed release 0 3-15 00:00: 00 No 1mg Dose Unknown 2021-0 3-15 00:00: 00 No Dose Unknown 2021-0 3-15 00:00: 00 No Dose Unknown 2021-0 3-15 00:00: 00 No Dose Unknown 2021-0 3-15 00:00: 00 No Dose Unknown 2021-0 3-15 00:00: 00 No Dose Unknown 2021-0 3-15 00:00: 00 No Dose Unknown 2021-0 3-15 00:00: 00 No Dose Unknown 2021-0 3-15 00:00: 00 No hydrochloro thiazide 50 mg tablet 2021-0 3-15 00:00: 00 No 1mg lisinopril 2.5 mg tablet 2021-0 3-15 00:00: 00 No 1mg metformin 1,000 mg tablet 2021-0 3-15 00:00: 00 No 1mg glimepiride 2 mg tablet 2-0 3-15 00:00: 00 No 1mg atorvastati n 80 mg tablet 2-0 3-15 00:00: 00 No 1mg omeprazole 40 mg capsule,del ayed release 2022-0 3-15 00:00: 00 No 1mg Dose Unknown 2-0 3-15 00:00: 00 No Dose Unknown 2-0 3-15 00:00: 00 No Dose Unknown 2-0 3-15 00:00: 00 No Dose Unknown 2-0 3-15 00:00: 00 No Dose Unknown 2-0 3-15 00:00: 00 No Dose Unknown 2-0 3-15 00:00: 00 No Dose Unknown 2-0 3-15 00:00: 00 No Dose Unknown 2-0 3-15 00:00: 00 No hydrochloro thiazide 50 mg tablet 2-0 3-15 00:00: 00 No 1mg lisinopril 2.5 mg tablet 2-0 3-15 00:00: 00 No 1mg metformin 1,000 mg tablet 2-0 3-15 00:00: 00 No 1mg glimepiride 2 mg tablet 2-0 3-15 00:00: 00 No 1mg atorvastati n 80 mg tablet 2-0 3-15 00:00: 00 No 1mg omeprazole 40 mg capsule,del ayed release 2-0 3-15 00:00: 00 No 1mg Dose Unknown 2-0 3-15 00:00: 00 No Dose Unknown 2-0 3-15 00:00: 00 No Dose Unknown 2-0 3-15 00:00: 00 No Dose Unknown 2-0 3-15 00:00: 00 No Dose Unknown 2-0 3-15 00:00: 00 No Dose Unknown 2-0 3-15 00:00: 00 No Dose Unknown 2-0 3-15 00:00: 00 No Dose Unknown 2-0 3-15 00:00: 00 No hydrochloro thiazide 50 mg tablet 2-0 3-15 00:00: 00 No 1mg lisinopril 2.5 mg tablet 2-0 3-15 00:00: 00 No 1mg metformin 1,000 mg tablet 2022-0 3-15 00:00: 00 No 1mg glimepiride 2 mg tablet 2022-0 3-15 00:00: 00 No 1mg atorvastati n 80 mg tablet 2022-0 3-15 00:00: 00 No 1mg omeprazole 40 mg capsule,del ayed release 2022-0 3-15 00:00: 00 No 1mg Dose Unknown 2022-0 3-15 00:00: 00 No Dose Unknown 2022-0 3-15 00:00: 00 No Dose Unknown 2022-0 3-15 00:00: 00 No Dose Unknown 2022-0 3-15 00:00: 00 No Dose Unknown 2022-0 3-15 00:00: 00 No Dose Unknown 2022-0 3-15 00:00: 00 No Dose Unknown 2022-0 3-15 00:00: 00 No Dose Unknown 2022-0 3-15 00:00: 00 No Dose Unknown 2022-0 3-10 00:00: 00 Yes Teodoro Dodge Pepe Dose Unknown 2022-0 3-10 00:00: 00 Yes Teodoro F Pepe Dose Unknown 2022-0 3-10 00:00: 00 Yes Teodoro F Pepe Dose Unknown 2022-0 3-10 00:00: 00 Yes Teodoro F Pepe Dose Unknown 2022-0 3-10 00:00: 00 Yes Teodoro F Pepe Dose Unknown 2022-0 3-10 00:00: 00 Yes Teodoro F Pepe Dose Unknown 2022-0 3-10 00:00: 00 Yes Teodoro F Pepe Dose Unknown 2022-0 3-10 00:00: 00 Yes Teodoro Echo Pepe Dose Unknown 2022-0 3-10 00:00: 00 No Dose Unknown 2022-0 3-10 00:00: 00 No Dose Unknown 2022-0 3-10 00:00: 00 No Dose Unknown 2022-0 3-10 00:00: 00 No Dose Unknown 2022-0 3-10 00:00: 00 No Dose Unknown 2022-0 3-10 00:00: 00 No Dose Unknown 2022-0 3-10 00:00: 00 No Dose Unknown 2022-0 3-10 00:00: 00 No Dose Unknown 2022-0 3-10 00:00: 00 No Dose Unknown 2022-0 3-10 00:00: 00 No Dose Unknown 2022-0 3-10 00:00: 00 No Dose Unknown 2022-0 3-10 00:00: 00 No Dose Unknown 2022-0 3-10 00:00: 00 No Dose Unknown 2022-0 3-10 00:00: 00 No Dose Unknown 2022-0 3-10 00:00: 00 No Dose Unknown 2022-0 3-10 00:00: 00 No Dose Unknown 2022-0 3-10 00:00: 00 No Dose Unknown 2022-0 3-10 00:00: 00 No Dose Unknown 2022-0 3-10 00:00: 00 No Dose Unknown 2022-0 3-10 00:00: 00 No Dose Unknown 2022-0 3-10 00:00: 00 No Dose Unknown 2022-0 3-10 00:00: 00 No Dose Unknown 2022-0 3-10 00:00: 00 No Dose Unknown 2022-0 3-10 00:00: 00 No Dose Unknown 2022-0 3-10 00:00: 00 No Dose Unknown 2022-0 3-10 00:00: 00 No Dose Unknown 2022-0 3-10 00:00: 00 No Dose Unknown 2022-0 3-10 00:00: 00 No Dose Unknown 2022-0 3-10 00:00: 00 No Dose Unknown 2022-0 3-10 00:00: 00 No Dose Unknown 2022-0 3-10 00:00: 00 No Dose Unknown 2022-0 3-10 00:00: 00 No Dose Unknown 2022-0 3-04 00:00: 00 Yes Teodoro Cantu Dose Unknown 2022-0 3-04 00:00: 00 Yes Teodoro Cantu Dose Unknown 2022-0 3-04 00:00: 00 Yes Teodoro Dodge Pepe Dose Unknown 2022-0 3-04 00:00: 00 Yes Teodoro Dodge Pepe Dose Unknown 2022-0 3-04 00:00: 00 Yes Teodoro Cantu Dose Unknown 2022-0 3-04 00:00: 00 Yes Teodoro Cantu Dose Unknown 2022-0 3-04 00:00: 00 Yes Teodoro Dodge Pepe Dose Unknown 2022-0 3-04 00:00: 00 Yes Teodoro F Pepe Dose Unknown 2022-0 3-04 00:00: 00 No Dose Unknown 2022-0 3-04 00:00: 00 No Dose Unknown 2022-0 3-04 00:00: 00 No Dose Unknown 2022-0 3-04 00:00: 00 No Dose Unknown 2022-0 3-04 00:00: 00 No Dose Unknown 2022-0 3-04 00:00: 00 No Dose Unknown 2022-0 3-04 00:00: 00 No Dose Unknown 2022-0 3-04 00:00: 00 No Dose Unknown 2022-0 3-04 00:00: 00 No Dose Unknown 2022-0 3-04 00:00: 00 No Dose Unknown 2022-0 3-04 00:00: 00 No Dose Unknown 2022-0 3-04 00:00: 00 No Dose Unknown 2022-0 3-04 00:00: 00 No Dose Unknown 2022-0 3-04 00:00: 00 No Dose Unknown 2022-0 3-04 00:00: 00 No Dose Unknown 2022-0 3-04 00:00: 00 No Dose Unknown 2022-0 3-04 00:00: 00 No Dose Unknown 2022-0 3-04 00:00: 00 No Dose Unknown 2022-0 3-04 00:00: 00 No Dose Unknown 2022-0 3-04 00:00: 00 No Dose Unknown 2022-0 3-04 00:00: 00 No Dose Unknown 2022-0 3-04 00:00: 00 No Dose Unknown 2022-0 3-04 00:00: 00 No Dose Unknown 2022-0 3-04 00:00: 00 No Dose Unknown 2022-0 3-04 00:00: 00 No Dose Unknown 2022-0 3-04 00:00: 00 No Dose Unknown 2022-0 3-04 00:00: 00 No Dose Unknown 2022-0 3-04 00:00: 00 No Dose Unknown 2022-0 3-04 00:00: 00 No Dose Unknown 2022-0 3-04 00:00: 00 No Dose Unknown 2022-0 3-04 00:00: 00 No Dose Unknown 2022-0 3-04 00:00: 00 No Levemir FlexTouch U-100 Insulin 100 unit/mL (3 mL) subcutaneou s pen 2022-0 2-10 00:00: 00 Yes 20(3 mL) Teodoro Cantu Dose Unknown 2021-0 2-10 00:00: 00 Yes Teodoro Cantu Levemir FlexTouch U-100 Insulin 100 unit/mL (3 mL) subcutaneou s pen 2-0 2-10 00:00: 00 No 20(3 mL) Dose Unknown 2021-0 2-10 00:00: 00 No Levemir FlexTouch U-100 Insulin 100 unit/mL (3 mL) subcutaneou s pen 2021-0 2-10 00:00: 00 No 20(3 mL) Dose Unknown 2021-0 2-10 00:00: 00 No Levemir FlexTouch U-100 Insulin 100 unit/mL (3 mL) subcutaneou s pen 2021-0 2-10 00:00: 00 No 20(3 mL) Dose Unknown 0 2-10 00:00: 00 No Levemir FlexTouch U-100 Insulin 100 unit/mL (3 mL) subcutaneou s pen 2021-0 2-10 00:00: 00 No 20(3 mL) Dose Unknown 2021-0 2-10 00:00: 00 No pentoxifyll ine ER 400 mg tablet,exte nded release 2021-0 1- 00:00: 00 Yes 1mg Teodoro Cantu pentoxifyll ine ER 400 mg tablet,exte nded release 2021-0 - 00:00: 00 No 1mg pentoxifyll ine ER 400 mg tablet,exte nded release 2021-0 1- 00:00: 00 No 1mg pentoxifyll ine ER 400 mg tablet,exte nded release 2021-0 -27 00:00: 00 No 1mg pentoxifyll ine ER 400 mg tablet,exte nded release 2-0 1-27 00:00: 00 No 1mg Dose Unknown 2021-0 -25 00:00: 00 Yes Teodoro Cantu Dose Unknown 2021-0 1-25 00:00: 00 Yes Teodoro Cantu Dose Unknown 0 1-25 00:00: 00 No Dose Unknown 2021-0 1- 00:00: 00 No Dose Unknown 0 -25 00:00: 00 No Dose Unknown 0 1-25 00:00: 00 No Dose Unknown 0 1-25 00:00: 00 No Dose Unknown 0 1-25 00:00: 00 No Dose Unknown 0 1-25 00:00: 00 No Dose Unknown 0 1-25 00:00: 00 No Dose Unknown 2020-12 2- 00:00: 00 Yes Teodoro Cantu hydrochloro thiazide 50 mg tablet 2020-12 2- 00:00: 00 No 1mg hydrochloro thiazide 50 mg tablet 2020-12 2- 00:00: 00 No 1mg hydrochloro thiazide 50 mg tablet 2020-12 2- 00:00: 00 No 1mg hydrochloro thiazide 50 mg tablet 2020-12 2- 00:00: 00 No 1mg Dose Unknown 2020-12 2- 00:00: 00 Yes Teodoro Cantu Dose Unknown 2020-12 2-18 00:00: 00 No Dose Unknown 2020-12 2-18 00:00: 00 No Dose Unknown 2020-12 2-18 00:00: 00 No Dose Unknown 2020-12 2-18 00:00: 00 No Levemir FlexTouch U-100 Insulin 100 unit/mL (3 mL) subcutaneou s pen 2020-12 2-16 00:00: 00 Yes 20(3 mL) Teodoro Cantu hydrochloro thiazide 50 mg tablet 2020-12 2-16 00:00: 00 Yes 1mg Teodoro Cantu Levemir FlexTouch U-100 Insulin 100 unit/mL (3 mL) subcutaneou s pen 2020-12 2-16 00:00: 00 No 20(3 mL) hydrochloro thiazide 50 mg tablet 2020-12 2-16 00:00: 00 No 1mg Levemir FlexTouch U-100 Insulin 100 unit/mL (3 mL) subcutaneou s pen 2020-12 2-16 00:00: 00 No 20(3 mL) hydrochloro thiazide 50 mg tablet 2020-12 2-16 00:00: 00 No 1mg Levemir FlexTouch U-100 Insulin 100 unit/mL (3 mL) subcutaneou s pen 2020-12 2-16 00:00: 00 No 20(3 mL) hydrochloro thiazide 50 mg tablet 2020-12 2 00:00: 00 No 1mg Levemir FlexTouch U-100 Insulin 100 unit/mL (3 mL) subcutaneou s pen 2020-12 00:00: 00 No 20(3 mL) hydrochloro thiazide 50 mg tablet 2020-12 00:00: 00 No 1mg vardenafil 20 mg tablet 2020-12 2 00:00: 00 Yes 1mg Teodoro Cantu vardenafil 20 mg tablet 2020-12 00:00: 00 No 1mg vardenafil 20 mg tablet 2020-12 00:00: 00 No 1mg vardenafil 20 mg tablet 2020-12 00:00: 00 No 1mg vardenafil 20 mg tablet 2020-12 00:00: 00 No 1mg testosteron e cypionate 200 mg/mL intramuscul ar oil 2020-12 00:00: 00 Yes mg/mL Teodoro Cantu testosteron e cypionate 200 mg/mL intramuscul ar oil 2020-12 00:00: 00 No mg/mL testosteron e cypionate 200 mg/mL intramuscul ar oil 2020-12 00:00: 00 No mg/mL testosteron e cypionate 200 mg/mL intramuscul ar oil 2020-12 00:00: 00 No mg/mL testosteron e cypionate 200 mg/mL intramuscul ar oil 2020-12 00:00: 00 No mg/mL vardenafil 20 mg tablet 2020-12 00:00: 00 Yes 1mg Teodoro Cantu vardenafil 20 mg tablet 2020-12 2 00:00: 00 No 1mg vardenafil 20 mg tablet 2020-12 00:00: 00 No 1mg vardenafil 20 mg tablet 2020-12 00:00: 00 No 1mg vardenafil 20 mg tablet 2020-12 2 00:00: 00 No 1mg Dose Unknown 2020-12 2 00:00: 00 Yes Teodoro Cantu Dose Unknown 2020-12 2 00:00: 00 No Dose Unknown 2020-12 00:00: 00 No Dose Unknown 2020-12 00:00: 00 No Dose Unknown 2020-12 00:00: 00 No Viagra 100 mg tablet 2020-12 00:00: 00 Yes 1mg Teodoro Cantu hydrochloro thiazide 50 mg tablet 2020-12 00:00: 00 Yes 1mg Teodoro Cantu Dose Unknown 2020-12 00:00: 00 Yes Teodoro Cantu Viagra 100 mg tablet 2020-12 00:00: 00 No 1mg hydrochloro thiazide 50 mg tablet 2020-12 00:00: 00 No 1mg hydrocortis one acetate 30 mg rectal suppository 2020-12 00:00: 00 No 1mg Viagra 100 mg tablet 2020-12 00:00: 00 No 1mg hydrochloro thiazide 50 mg tablet 2020-12 00:00: 00 No 1mg hydrocortis one acetate 30 mg rectal suppository 2020-12 00:00: 00 No 1mg Viagra 100 mg tablet 2020-12 00:00: 00 No 1mg hydrochloro thiazide 50 mg tablet 2020-12 00:00: 00 No 1mg hydrocortis one acetate 30 mg rectal suppository 2020-12 00:00: 00 No 1mg Viagra 100 mg tablet 2020-12 00:00: 00 No 1mg hydrochloro thiazide 50 mg tablet 2020-12 00:00: 00 No 1mg hydrocortis one acetate 30 mg rectal suppository 2020-12 00:00: 00 No 1mg propranolol 20 mg tablet 2020-12 00:00: 00 Yes 1mg Teodoro Cantu Dose Unknown 2020-12 00:00: 00 Yes Teodoro Cantu propranolol 20 mg tablet 2020-12 00:00: 00 No 1mg trazodone 100 mg tablet 2020-12 00:00: 00 No 1mg propranolol 20 mg tablet 2020-12 00:00: 00 No 1mg trazodone 100 mg tablet 2020-12 00:00: 00 No 1mg propranolol 20 mg tablet 2020-12 00:00: 00 No 1mg trazodone 100 mg tablet 2020-12 00:00: 00 No 1mg propranolol 20 mg tablet 2020-12 00:00: 00 No 1mg trazodone 100 mg tablet 2020-12 00:00: 00 No 1mg testosteron e cypionate 200 mg/mL intramuscul ar oil 2020-12 00:00: 00 Yes mg/mL Teodoro Cantu testosteron e cypionate 200 mg/mL intramuscul ar oil 2020-12 00:00: 00 No mg/mL testosteron e cypionate 200 mg/mL intramuscul ar oil 2020-12 00:00: 00 No mg/mL testosteron e cypionate 200 mg/mL intramuscul ar oil 2020-12 00:00: 00 No mg/mL testosteron e cypionate 200 mg/mL intramuscul ar oil 2020-12 00:00: 00 No mg/mL tadalafil 20 mg tablet 2020-12 00:00: 00 Yes 1mg Teodoro Cantu Dose Unknown 2020-12 0 00:00: 00 Yes Teodoro Cantu tadalafil 20 mg tablet 2020-12 00:00: 00 No 1mg Dose Unknown 2020-12 0 00:00: 00 No tadalafil 20 mg tablet 2020-12 00:00: 00 No 1mg Dose Unknown 2020-12 00:00: 00 No tadalafil 20 mg tablet 2020-1220 00:00: 00 No 1mg Dose Unknown 2020-12 020 00:00: 00 No tadalafil 20 mg tablet 2020-1220 00:00: 00 No 1mg loratadine- pseudoephed rine ER 10 mg-240 mg tablet,exte nded [id number] 2020-12 0-20 00:00: 00 No 1mg sildenafil 100 mg tablet 2020-12 0- 00:00: 00 Yes 1mg Teodoro Cantu sildenafil 100 mg tablet 2021-1 0-19 00:00: 00 No 1mg sildenafil 100 mg tablet 2020-12 0-19 00:00: 00 No 1mg sildenafil 100 mg tablet 2020-12 0-19 00:00: 00 No 1mg sildenafil 100 mg tablet 2020-12 0-19 00:00: 00 No 1mg Dose Unknown 2020-12 0-08 00:00: 00 Yes Teodoro Cantu Dose Unknown 2020-12 0-08 00:00: 00 Yes Teodoro Cantu Dose Unknown 2020-12 008 00:00: 00 Yes Teodoro Cantu loratadine 10 mg tablet 2020-12 0-08 00:00: 00 No 1mg furosemide 20 mg tablet 2020-12 0-08 00:00: 00 No 1mg fluticasone propionate 50 mcg/actuati on nasal spray,suspe nsion 2020-12 0-08 00:00: 00 No 1mcg/ac tuation loratadine 10 mg tablet 2020-12 0-08 00:00: 00 No 1mg furosemide 20 mg tablet 2020-12 0-08 00:00: 00 No 1mg fluticasone propionate 50 mcg/actuati on nasal spray,suspe nsion 2020-12 0-08 00:00: 00 No 1mcg/ac tuation loratadine 10 mg tablet 2020-12 0-08 00:00: 00 No 1mg furosemide 20 mg tablet 2020-12 0-08 00:00: 00 No 1mg fluticasone propionate 50 mcg/actuati on nasal spray,suspe nsion 2020-12 0-08 00:00: 00 No 1mcg/ac tuation loratadine 10 mg tablet 2020-12 0-08 00:00: 00 No 1mg furosemide 20 mg tablet 2020-12 0-08 00:00: 00 No 1mg fluticasone propionate 50 mcg/actuati on nasal spray,suspe nsion 2020-12 0-08 00:00: 00 No 1mcg/ac tuation metronidazo le 500 mg tablet 08-25 00:00: 00 Yes 1mg Teodoro Cantu clarithromy butch 500 mg tablet 08-25 00:00: 00 Yes 1mg Teodoro Cantu Dose Unknown 08-25 00:00: 00 Yes Teodoro Cantu metronidazo le 500 mg tablet 08-25 00:00: 00 No 1mg clarithromy butch 500 mg tablet 08-25 00:00: 00 No 1mg omeprazole 20 mg capsule,del ayed release 08-25 00:00: 00 No 1mg metronidazo le 500 mg tablet 08-25 00:00: 00 No 1mg clarithromy butch 500 mg tablet 08-25 00:00: 00 No 1mg omeprazole 20 mg capsule,del ayed release 08-25 00:00: 00 No 1mg metronidazo le 500 mg tablet 08-25 00:00: 00 No 1mg clarithromy butch 500 mg tablet 08-25 00:00: 00 No 1mg omeprazole 20 mg capsule,del ayed release 08-25 00:00: 00 No 1mg metronidazo le 500 mg tablet 08-25 00:00: 00 No 1mg clarithromy butch 500 mg tablet 08-25 00:00: 00 No 1mg omeprazole 20 mg capsule,del ayed release 08-25 00:00: 00 No 1mg propranolol 20 mg tablet 08-21 00:00: 00 Yes 1mg Teodoro Cantu trazodone 100 mg tablet 08-21 00:00: 00 Yes 1mg Teodoro Cantu Dose Unknown 08-21 00:00: 00 Yes Teodoro Cantu propranolol 20 mg tablet 08-21 00:00: 00 No 1mg bupropion HCl SR 150 mg tablet,12 hr sustained-r elease 08-21 00:00: 00 No 1mg trazodone 100 mg tablet 08-21 00:00: 00 No 1mg propranolol 20 mg tablet 08-21 00:00: 00 No 1mg bupropion HCl SR 150 mg tablet,12 hr sustained-r elease 08-21 00:00: 00 No 1mg trazodone 100 mg tablet 08-21 00:00: 00 No 1mg propranolol 20 mg tablet 08-21 00:00: 00 No 1mg bupropion HCl SR 150 mg tablet,12 hr sustained-r elease 08-21 00:00: 00 No 1mg trazodone 100 mg tablet 08-21 00:00: 00 No 1mg propranolol 20 mg tablet 08-21 00:00: 00 No 1mg bupropion HCl SR 150 mg tablet,12 hr sustained-r elease 08-21 00:00: 00 No 1mg trazodone 100 mg tablet 08-21 00:00: 00 No 1mg Levemir FlexTouch U-100 Insulin 100 unit/mL (3 mL) subcutaneou s pen 08-08 00:00: 00 Yes 20(3 mL) Teodoro Cantu sildenafil 100 mg tablet 08-08 00:00: 00 Yes 1mg Teodoro Cantu Levemir FlexTouch U-100 Insulin 100 unit/mL (3 mL) subcutaneou s pen 08-08 00:00: 00 No 20(3 mL) sildenafil 100 mg tablet 08-08 00:00: 00 No 1mg Levemir FlexTouch U-100 Insulin 100 unit/mL (3 mL) subcutaneou s pen 08-08 00:00: 00 No 20(3 mL) sildenafil 100 mg tablet 08-08 00:00: 00 No 1mg Levemir FlexTouch U-100 Insulin 100 unit/mL (3 mL) subcutaneou s pen 08-08 00:00: 00 No 20(3 mL) Levemir FlexTouch U-100 Insulin 100 unit/mL (3 mL) subcutaneou s pen 08-08 00:00: 00 No 20(3 mL) sildenafil 100 mg tablet 08-08 00:00: 00 No 1mg sildenafil 100 mg tablet 08-08 00:00: 00 No 1mg testosteron e cypionate 200 mg/mL intramuscul ar oil 8-04 00:00: 00 Yes mg/mL Teodoro Cantu testosteron e cypionate 200 mg/mL intramuscul ar oil 07-04 00:00: 00 No mg/mL testosteron e cypionate 200 mg/mL intramuscul ar oil 07-04 00:00: 00 No mg/mL testosteron e cypionate 200 mg/mL intramuscul ar oil 07-04 00:00: 00 No mg/mL testosteron e cypionate 200 mg/mL intramuscul ar oil 07-04 00:00: 00 No mg/mL Levemir FlexTouch U-100 Insulin 100 unit/mL (3 mL) subcutaneou s pen 07-03 00:00: 00 Yes 20(3 mL) Teodoro Cantu sildenafil 50 mg tablet 07-03 00:00: 00 Yes 1mg Teodoro Cantu lisinopril 2.5 mg tablet 07-03 00:00: 00 Yes 1mg Teodoro Cantu Dose Unknown 07-03 00:00: 00 Yes Teodoro Cantu metformin 1,000 mg tablet 07-03 00:00: 00 Yes 1mg Teodoro Cantu Dose Unknown 07-03 00:00: 00 Yes Teodoro Cantu sildenafil 50 mg tablet 07-03 00:00: 00 No 1mg lisinopril 2.5 mg tablet 07-03 00:00: 00 No 1mg Dose Unknown 07-03 00:00: 00 No metformin 1,000 mg tablet 07-03 00:00: 00 No 1mg Dose Unknown 07-03 00:00: 00 No Levemir FlexTouch U-100 Insulin 100 unit/mL (3 mL) subcutaneou s pen 07-03 00:00: 00 No 20(3 mL) sildenafil 50 mg tablet 07-03 00:00: 00 No 1mg lisinopril 2.5 mg tablet 07-03 00:00: 00 No 1mg Dose Unknown 07-03 00:00: 00 No metformin 1,000 mg tablet 07-03 00:00: 00 No 1mg Dose Unknown 07-03 00:00: 00 No Levemir FlexTouch U-100 Insulin 100 unit/mL (3 mL) subcutaneou s pen 07-03 00:00: 00 No 20(3 mL) sildenafil 50 mg tablet 07-03 00:00: 00 No 1mg lisinopril 2.5 mg tablet 07-03 00:00: 00 No 1mg Dose Unknown 07-03 00:00: 00 No metformin 1,000 mg tablet 07-03 00:00: 00 No 1mg Dose Unknown 07-03 00:00: 00 No Levemir FlexTouch U-100 Insulin 100 unit/mL (3 mL) subcutaneou s pen 07-03 00:00: 00 No 20(3 mL) sildenafil 50 mg tablet 07-03 00:00: 00 No 1mg lisinopril 2.5 mg tablet 07-03 00:00: 00 No 1mg Dose Unknown 07-03 00:00: 00 No metformin 1,000 mg tablet 07-03 00:00: 00 No 1mg Dose Unknown 07-03 00:00: 00 No Levemir FlexTouch U-100 Insulin 100 unit/mL (3 mL) subcutaneou s pen 07-03 00:00: 00 No 20(3 mL) glimepiride 2 mg tablet 06-26 00:00: 00 Yes 1mg Teodoro Cantu glimepiride 2 mg tablet 06-26 00:00: 00 No 1mg glimepiride 2 mg tablet 06-26 00:00: 00 No 1mg glimepiride 2 mg tablet 06-26 00:00: 00 No 1mg glimepiride 2 mg tablet 06-26 00:00: 00 No 1mg Levemir FlexTouch U-100 Insulin 100 unit/mL (3 mL) subcutaneou s pen 05-31 00:00: 00 Yes 20(3 mL) Teodoro Cantu lisinopril 2.5 mg tablet 05-31 00:00: 00 Yes 1mg Teodoro Cantu metformin 1,000 mg tablet 05-31 00:00: 00 Yes 1mg Teodoro Cantu atorvastati n 80 mg tablet 05-31 00:00: 00 Yes 1mg Teodoro Cantu Levemir FlexTouch U-100 Insulin 100 unit/mL (3 mL) subcutaneou s pen 05-31 00:00: 00 No 20(3 mL) lisinopril 2.5 mg tablet 05-31 00:00: 00 No 1mg metformin 1,000 mg tablet 05-31 00:00: 00 No 1mg Levemir FlexTouch U-100 Insulin 100 unit/mL (3 mL) subcutaneou s pen 05-31 00:00: 00 No 20(3 mL) lisinopril 2.5 mg tablet 05-31 00:00: 00 No 1mg metformin 1,000 mg tablet 05-31 00:00: 00 No 1mg atorvastati n 80 mg tablet 05-31 00:00: 00 No 1mg atorvastati n 80 mg tablet 05-31 00:00: 00 No 1mg Levemir FlexTouch U-100 Insulin 100 unit/mL (3 mL) subcutaneou s pen 05-31 00:00: 00 No 20(3 mL) lisinopril 2.5 mg tablet 05-31 00:00: 00 No 1mg metformin 1,000 mg tablet 05-31 00:00: 00 No 1mg atorvastati n 80 mg tablet 05-31 00:00: 00 No 1mg Levemir FlexTouch U-100 Insulin 100 unit/mL (3 mL) subcutaneou s pen 05-31 00:00: 00 No 20(3 mL) lisinopril 2.5 mg tablet 05-31 00:00: 00 No 1mg metformin 1,000 mg tablet 05-31 00:00: 00 No 1mg atorvastati n 80 mg tablet 05-31 00:00: 00 No 1mg sildenafil 25 mg tablet 0 5-06 00:00: 00 Yes 1mg Teodoro Cantu sildenafil 25 mg tablet 5- 00:00: 00 No 1mg sildenafil 25 mg tablet 5- 00:00: 00 No 1mg sildenafil 25 mg tablet 5- 00:00: 00 No 1mg sildenafil 25 mg tablet 5- 00:00: 00 No 1mg Levemir FlexTouch U-100 Insulin 100 unit/mL (3 mL) subcutaneou s pen - 00:00: 00 Yes 20(3 mL) Teodoro Cantu Levemir FlexTouch U-100 Insulin 100 unit/mL (3 mL) subcutaneou s pen - 00:00: 00 No 20(3 mL) Levemir FlexTouch U-100 Insulin 100 unit/mL (3 mL) subcutaneou s pen - 00:00: 00 No 20(3 mL) Levemir FlexTouch U-100 Insulin 100 unit/mL (3 mL) subcutaneou s pen - 00:00: 00 No 20(3 mL) Levemir FlexTouch U-100 Insulin 100 unit/mL (3 mL) subcutaneou s pen - 00:00: 00 No 20(3 mL) metformin 1,000 mg tablet - 00:00: 00 Yes 1mg Teodoro Cantu metformin 1,000 mg tablet - 00:00: 00 No 1mg metformin 1,000 mg tablet -15 00:00: 00 No 1mg metformin 1,000 mg tablet -15 00:00: 00 No 1mg metformin 1,000 mg tablet -15 00:00: 00 No 1mg atorvastati n 80 mg tablet - 00:00: 00 Yes 1mg Teodoro Cantu atorvastati n 80 mg tablet 3- 00:00: 00 No 1mg atorvastati n 80 mg tablet 3- 00:00: 00 No 1mg atorvastati n 80 mg tablet 02-19 00:00: 00 No 1mg atorvastati n 80 mg tablet 02-19 00:00: 00 No 1mg Levemir FlexTouch U-100 Insulin 100 unit/mL (3 mL) subcutaneou s pen 02-16 00:00: 00 Yes 20(3 mL) Teodoro Cantu simvastatin 40 mg tablet 02-16 00:00: 00 Yes 1mg Teodoro Cantu lisinopril 2.5 mg tablet 02-16 00:00: 00 Yes 1mg Teodoro Cantu metformin 1,000 mg tablet 02-16 00:00: 00 Yes 1mg Teodoro Cantu Levemir FlexTouch U-100 Insulin 100 unit/mL (3 mL) subcutaneou s pen 02-16 00:00: 00 No 20(3 mL) simvastatin 40 mg tablet 02-16 00:00: 00 No 1mg lisinopril 2.5 mg tablet 02-16 00:00: 00 No 1mg metformin 1,000 mg tablet 02-16 00:00: 00 No 1mg Levemir FlexTouch U-100 Insulin 100 unit/mL (3 mL) subcutaneou s pen 02-16 00:00: 00 No 20(3 mL) simvastatin 40 mg tablet 02-16 00:00: 00 No 1mg lisinopril 2.5 mg tablet 02-16 00:00: 00 No 1mg metformin 1,000 mg tablet 02-16 00:00: 00 No 1mg Levemir FlexTouch U-100 Insulin 100 unit/mL (3 mL) subcutaneou s pen 02-16 00:00: 00 No 20(3 mL) simvastatin 40 mg tablet 02-16 00:00: 00 No 1mg lisinopril 2.5 mg tablet 02-16 00:00: 00 No 1mg metformin 1,000 mg tablet 02-16 00:00: 00 No 1mg Levemir FlexTouch U-100 Insulin 100 unit/mL (3 mL) subcutaneou s pen 02-16 00:00: 00 No 20(3 mL) simvastatin 40 mg tablet 02-16 00:00: 00 No 1mg lisinopril 2.5 mg tablet 02-16 00:00: 00 No 1mg metformin 1,000 mg tablet 02-16 00:00: 00 No 1mg simvastatin 40 mg tablet 04-11 00:00: 00 Yes 1mg Teodoro Cantu simvastatin 40 mg tablet 04-11 00:00: 00 No 1mg simvastatin 40 mg tablet 04-11 00:00: 00 No 1mg simvastatin 40 mg tablet 04-11 00:00: 00 No 1mg simvastatin 40 mg tablet 04-11 00:00: 00 No 1mg metformin 500 mg tablet 04-06 00:00: 00 Yes 1mg Teodoro Cantu metformin 500 mg tablet 04-06 00:00: 00 No 1mg metformin 500 mg tablet 04-06 00:00: 00 No 1mg metformin 500 mg tablet 04-06 00:00: 00 No 1mg metformin 500 mg tablet 04-06 00:00: 00 No 1mg phenazopyri dine 200 mg tablet 2017-12 00:00: 00 Yes 200mg Take 1 tablet by mouth 3 (three) times daily. [facility] ZANTAC 75 75 MG ORAL TAB 03-27 10:19: 57 Yes None Entered [facility] PROTONIX 40 MG ORAL TBEC 03-27 00:00: 00 Yes take 1 po qd [facility] DARVON 65 MG ORAL CAP 03-27 00:00: 00 Yes take 1 po every 4-6hrs. as needed for pain [facility] HYDROCODONE -ACETAMINOP HEN 5-325 MG ORAL TAB 03-17 00:00: 00 Yes Take one by mouth every 4 to 6 hours as needed for pain. [facility] Immunizations Ordered Immunization Name Filled Immunization Name Date Status Comments Source Moderna COVID- Vaccine Moderna COVID- Vaccine 2021-11-15 00:00:00 Completed Teodoro F Pepe Moderna COVID-19 Vaccine 2021-11-15 00:00:00 Completed Moderna COVID-19 Vaccine 2021-11-15 00:00:00 Completed Moderna COVID-19 Vaccine 2021-11-15 00:00:00 Completed Moderna COVID-19 Vaccine 2021-11-15 00:00:00 Completed Moderna COVID-19 Vaccine 2021-11-15 00:00:00 Completed Moderna COVID-19 Vaccine 2021-11-15 00:00:00 Completed SARS-COV-2 COVID-19 PFIZER VACCINE 2021-03-31 00:00:00 Completed [facility] SARS-COV-2 COVID-19 PFIZER VACCINE 2021-03-10 00:00:00 Completed [facility] Vital Signs Vital Name Observation Time Observation Value Comments S ource BP Systolic 2025-04-04 10:15:00 127 mm[Hg] Step hen F Pepe BP Diastolic 2025-04-04 10:15:00 78 mm[Hg] Pedro phen F Pepe Weight Measured 2025-04-04 10:15:00 275.00 pounds Teodoro F Pepe Height Measured 2025-04-04 10:15:00 65.00 inches Teodoro F Pepe Body Temperature 2025-04-04 10:15:00 98.00 degrees Teodoro F Pepe Heart Rate 2025-04-04 10:15:00 47.00 /min Candi en F Pepe Respiratory Rate 2025-04-04 10:15:00 18.00 /min Teodoro F Pepe BP Systolic 2025-01-25 17:18:00 120 mm[Hg] Step hen F Pepe BP Diastolic 2025-01-25 17:18:00 80 mm[Hg] Pedro phen F Pepe Weight Measured 2025-01-25 17:18:00 263.00 pounds Teodoro F Pepe Height Measured 2025-01-25 17:18:00 65.00 inches Teodoro F Pepe Body Temperature 2025-01-25 17:18:00 98.00 degrees Teodoro F Pepe Heart Rate 2025-01-25 17:18:00 107.00 /min Step hen F Pepe Respiratory Rate 2025-01-25 17:18:00 18.00 /min Teodoro F Pepe BP Systolic 2025-01-17 10:42:00 116 mm[Hg] Step hen F Pepe BP Diastolic 2025-01-17 10:42:00 80 mm[Hg] Pedro phen F Pepe Weight Measured 2025-01-17 10:42:00 271.00 pounds Teodoro F Pepe Height Measured 2025-01-17 10:42:00 65.00 inches Teodoro F Pepe Body Temperature 2025-01-17 10:42:00 97.80 degrees Teodoro F Pepe Heart Rate 2025-01-17 10:42:00 92.00 /min Candi en F Pepe Respiratory Rate 2025-01-17 10:42:00 18.00 /min Teodoro F Pepe BP Systolic 2024-12-06 09:22:00 121 mm[Hg] Step hen F Pepe BP Diastolic 2024-12-06 09:22:00 80 mm[Hg] Pedro phen F Pepe Weight Measured 2024-12-06 09:22:00 264.00 pounds Teodoro F Pepe Height Measured 2024-12-06 09:22:00 65.00 inches Teodoro F Pepe Body Temperature 2024-12-06 09:22:00 98.30 degrees Teodoro F Pepe Heart Rate 2024-12-06 09:22:00 105.00 /min Step hen F Pepe Respiratory Rate 2024-12-06 09:22:00 16.00 /min Teodoro F Pepe BP Systolic 2024-11-18 08:09:00 116 mm[Hg] Step hen F Pepe BP Diastolic 2024-11-18 08:09:00 74 mm[Hg] Pedro phen F Pepe Weight Measured 2024-11-18 08:09:00 261.40 pounds Teodoro F Pepe Height Measured 2024-11-18 08:09:00 65.00 inches Teodoro F Pepe Body Temperature 2024-11-18 08:09:00 98.10 degrees Teodoro F Pepe Heart Rate 2024-11-18 08:09:00 91.00 /min Candi en F Pepe Respiratory Rate 2024-11-18 08:09:00 17.00 /min Teodoro F Pepe BP Systolic 2024-11-15 08:59:00 120 mm[Hg] Step hen F Pepe BP Diastolic 2024-11-15 08:59:00 78 mm[Hg] Pedro phen F Pepe Weight Measured 2024-11-15 08:59:00 260.00 pounds Teodoro F Pepe Height Measured 2024-11-15 08:59:00 65.00 inches Teodoro F Pepe Body Temperature 2024-11-15 08:59:00 97.70 degrees Teodoro F Pepe Heart Rate 2024-11-15 08:59:00 112.00 /min Step hen F Ppee Respiratory Rate 2024-11-15 08:59:00 16.00 /min Teodoro F Pepe BP Systolic 2024-11-04 10:22:00 121 mm[Hg] Step hen F Pepe BP Diastolic 2024-11-04 10:22:00 80 mm[Hg] Pedro phen F Pepe Weight Measured 2024-11-04 10:22:00 269.00 pounds Teodoro F Pepe Height Measured 2024-11-04 10:22:00 65.00 inches Teodoro F Pepe Body Temperature 2024-11-04 10:22:00 98.20 degrees Teodoro F Pepe Heart Rate 2024-11-04 10:22:00 97.00 /min Candi en F Pepe Respiratory Rate 2024-11-04 10:22:00 19.00 /min Teodoro F Pepe BP Systolic 2024-10-11 15:17:00 118 mm[Hg] Step hen F Pepe BP Diastolic 2024-10-11 15:17:00 76 mm[Hg] Pedro phen F Pepe Weight Measured 2024-10-11 15:17:00 260.00 pounds Teodoro F Pepe Height Measured 2024-10-11 15:17:00 65.00 inches Teodoro F Pepe Body Temperature 2024-10-11 15:17:00 98.20 degrees Teodoro F Pepe Heart Rate 2024-10-11 15:17:00 109.00 /min Step hen F Pepe Respiratory Rate 2024-10-11 15:17:00 20.00 /min Teodoro F Pepe BP Systolic 2024-10-06 09:42:00 136 mm[Hg] Step hen F Pepe BP Diastolic 2024-10-06 09:42:00 84 mm[Hg] Pedro phen F Pepe Weight Measured 2024-10-06 09:42:00 262.00 pounds Teodoro F Pepe Height Measured 2024-10-06 09:42:00 65.00 inches Teodoro F Pepe Body Temperature 2024-10-06 09:42:00 98.10 degrees Teodoro F Pepe Heart Rate 2024-10-06 09:42:00 98.00 /min Candi en F Pepe Respiratory Rate 2024-10-06 09:42:00 20.00 /min Teodoro F Pepe BP Systolic 2024-08-31 10:00:00 120 mm[Hg] Step hen F Pepe BP Diastolic 2024-08-31 10:00:00 80 mm[Hg] Pedro phen F Pepe Weight Measured 2024-08-31 10:00:00 237.90 pounds Teodoro F Pepe Height Measured 2024-08-31 10:00:00 65.00 inches Teodoro F Pepe Body Temperature 2024-08-31 10:00:00 98.10 degrees Teodoro F Pepe Heart Rate 2024-08-31 10:00:00 79.00 /min Candi en F Pepe Respiratory Rate 2024-08-31 10:00:00 18.00 /min Teodoro F Pepe BP Systolic 2024-08-30 15:29:00 118 mm[Hg] Step hen F Pepe BP Diastolic 2024-08-30 15:29:00 64 mm[Hg] Pedro phen F Pepe Weight Measured 2024-08-30 15:29:00 237.90 pounds Teodoro F Pepe Height Measured 2024-08-30 15:29:00 65.00 inches Teodoro F Pepe Body Temperature 2024-08-30 15:29:00 98.50 degrees Teodoro F Pepe Heart Rate 2024-08-30 15:29:00 102.00 /min Step hen F Pepe Respiratory Rate 2024-08-30 15:29:00 20.00 /min Teodoro F Pepe BP Systolic 2024-08-24 10:50:00 120 mm[Hg] Step hen F Pepe BP Diastolic 2024-08-24 10:50:00 60 mm[Hg] Pedro phen F Pepe Weight Measured 2024-08-24 10:50:00 256.00 pounds Teodoro F Pepe Height Measured 2024-08-24 10:50:00 65.00 inches Teodoro F Pepe Body Temperature 2024-08-24 10:50:00 96.30 degrees Teodoro F Pepe Heart Rate 2024-08-24 10:50:00 88.00 /min Candi en F Pepe Respiratory Rate 2024-08-24 10:50:00 20.00 /min Teodoro F Pepe BP Systolic 2023-12-19 14:24:00 136 mm[Hg] Step hen F Pepe BP Diastolic 2023-12-19 14:24:00 80 mm[Hg] Pedro phen F Pepe Weight Measured 2023-12-19 14:24:00 272.00 pounds Teodoro F Pepe Height Measured 2023-12-19 14:24:00 65.00 inches Teodoro F Pepe Body Temperature 2023-12-19 14:24:00 98.40 degrees Teodoro F Pepe Heart Rate 2023-12-19 14:24:00 74.00 /min Candi en F Pepe Respiratory Rate 2023-12-19 14:24:00 18.00 /min Teodoro F Pepe BP Systolic 2023-12-02 16:22:00 136 mm[Hg] Step hen F Pepe BP Diastolic 2023-12-02 16:22:00 78 mm[Hg] Pedro phen F Pepe Weight Measured 2023-12-02 16:22:00 276.00 pounds Teodoro F Pepe Height Measured 2023-12-02 16:22:00 65.00 inches Teodoro F Pepe Body Temperature 2023-12-02 16:22:00 97.00 degrees Teodoro F Pepe Heart Rate 2023-12-02 16:22:00 106.00 /min Step hen F Pepe Respiratory Rate 2023-12-02 16:22:00 20.00 /min Teodoro F Ppee BP Systolic 2023-08-25 08:10:00 120 mm[Hg] Step hen F Pepe BP Diastolic 2023-08-25 08:10:00 70 mm[Hg] Pedro phen F Pepe Weight Measured 2023-08-25 08:10:00 281.00 pounds Teodoro F Pepe Height Measured 2023-08-25 08:10:00 65.00 inches Teodoro F Pepe Body Temperature 2023-08-25 08:10:00 97.90 degrees Teodoro F Pepe Heart Rate 2023-08-25 08:10:00 100.00 /min Step hen F Pepe Respiratory Rate 2023-08-25 08:10:00 24.00 /min Teodoro F Pepe BP Systolic 2023-07-21 13:46:00 116 mm[Hg] Step hen F Pepe BP Diastolic 2023-07-21 13:46:00 72 mm[Hg] Pedro phen F Pepe Weight Measured 2023-07-21 13:46:00 279.00 pounds Teodoro F Pepe Height Measured 2023-07-21 13:46:00 65.00 inches Teodoro F Pepe Body Temperature 2023-07-21 13:46:00 97.60 degrees Teodoro F Pepe Heart Rate 2023-07-21 13:46:00 99.00 /min Candi en F Pepe Respiratory Rate 2023-07-21 13:46:00 22.00 /min Teodoro F Pepe BP Systolic 2023-07-16 10:45:00 122 mm[Hg] Step hen F Pepe BP Diastolic 2023-07-16 10:45:00 74 mm[Hg] Pedro phen F Pepe Weight Measured 2023-07-16 10:45:00 290.00 pounds Teodoro F Pepe Height Measured 2023-07-16 10:45:00 65.00 inches Teodoro F Pepe Body Temperature 2023-07-16 10:45:00 98.20 degrees Teodoro F Pepe Heart Rate 2023-07-16 10:45:00 112.00 /min Step hen F Pepe Respiratory Rate 2023-07-16 10:45:00 22.00 /min Teodoro F Pepe BP Systolic 2023-07-11 16:43:00 Step hen F Pepe BP Diastolic 2023-07-11 16:43:00 Pedro phen F Pepe Weight Measured 2023-07-11 16:43:00 Teodoro F Pepe Height Measured 2023-07-11 16:43:00 Teodoro F Pepe Body Temperature 2023-07-11 16:43:00 Teodoro F Pepe Heart Rate 2023-07-11 16:43:00 Candi en F Pepe Respiratory Rate 2023-07-11 16:43:00 Teodoro F Pepe BP Systolic 2023-07-05 12:43:00 118 mm[Hg] Step hen F Pepe BP Diastolic 2023-07-05 12:43:00 70 mm[Hg] Pedro phen F Pepe Weight Measured 2023-07-05 12:43:00 284.00 pounds Teodoro F Pepe Height Measured 2023-07-05 12:43:00 65.00 inches Teodoro F Pepe Body Temperature 2023-07-05 12:43:00 98.40 degrees Teodoro F Pepe Heart Rate 2023-07-05 12:43:00 96.00 /min Candi en F Pepe Respiratory Rate 2023-07-05 12:43:00 25.00 /min Teodoro F Pepe BP Systolic 2023-05-17 09:29:00 127 mm[Hg] Step hen F Pepe BP Diastolic 2023-05-17 09:29:00 79 mm[Hg] Pedro phen F Pepe Weight Measured 2023-05-17 09:29:00 283.20 pounds Teodoro F Pepe Height Measured 2023-05-17 09:29:00 65.00 inches Teodoro F Pepe Body Temperature 2023-05-17 09:29:00 98.10 degrees Teodoro F Pepe Heart Rate 2023-05-17 09:29:00 102.00 /min Step hen F Pepe Respiratory Rate 2023-05-17 09:29:00 18.00 /min Teodoro F Pepe BP Systolic 2023-03-22 14:34:00 141 mm[Hg] Step hen F Pepe BP Diastolic 2023-03-22 14:34:00 80 mm[Hg] Pedro phen F Pepe Weight Measured 2023-03-22 14:34:00 285.00 pounds Teodoro F Pepe Height Measured 2023-03-22 14:34:00 65.00 inches Teodoro F Pepe Body Temperature 2023-03-22 14:34:00 98.30 degrees Teodoro F Pepe Heart Rate 2023-03-22 14:34:00 75.00 /min Candi en F Pepe Respiratory Rate 2023-03-22 14:34:00 18.00 /min Teodoro F Pepe BP Systolic 2022-11-05 09:36:00 134 mm[Hg] BP Diastolic 2022-11-05 09:36:00 80 mm[Hg] Weight Measured 2022-11-05 09:36:00 290.00 pounds Height Measured 2022-11-05 09:36:00 65.00 inches Body Temperature 2022-11-05 09:36:00 97.10 degrees Heart Rate 2022-11-05 09:36:00 108.00 /min Respiratory Rate 2022-11-05 09:36:00 18.00 /min BP Systolic 2022-09-18 13:45:00 131 mm[Hg] BP [...] /min Respiratory Rate 2021-11-21 10:25:00 16.00 /min Plan of Care Planned Activity Planned Date Details Comments Source Goal Plan of Care Note [code = 65680-8] Goal Plan of Care Note [code = 61610-0] Goal Plan of Care Note [code = 79136-6] Goal Plan of Care Note [code = 60383-0] Goal Plan of Care Note [code = 24151-3] Goal Plan of Care Note [code = 29231-7] Goal Plan of Care Note [code = 59843-4] Goal Plan of Care Note [code = 45239-1] Goal Plan of Care Note [code = 55753-1] Goal Plan of Care Note [code = 66653-8] Goal Plan of Care Note [code = 68027-1] Goal Plan of Care Note [code = 77561-6] Goal Plan of Care Note [code = 91027-3] Goal Plan of Care Note [code = 07241-5] Goal Plan of Care Note [code = 14587-3] Goal Plan of Care Note [code = 95437-6] Goal Plan of Care Note [code = 87610-7] Goal Plan of Care Note [code = 84396-5] Goal Plan of Care Note [code = 46786-4] Goal Plan of Care Note [code = 43964-5] Goal Plan of Care Note [code = 62975-8] Goal Plan of Care Note [code = 55909-7] Goal Plan of Care Note [code = 35796-0] Goal Plan of Care Note [code = 50397-7] Goal Plan of Care Note [code = 13774-1] Goal Plan of Care Note [code = 21055-0] Goal Plan of Care Note [code = 25888-4] Goal Plan of Care Note [code = 97190-0] Goal Plan of Care Note [code = 66809-0] Goal Plan of Care Note [code = 79830-9] Goal Plan of Care Note [code = 16958-0] Goal Plan of Care Note [code = 20166-6] Goal Plan of Care Note [code = 23426-6] Goal Plan of Care Note [code = 32174-2] Goal Plan of Care Note [code = 35473-0] Goal Plan of Care Note [code = 01261-5] Goal Plan of Care Note [code = 74647-4] Goal Plan of Care Note [code = 52736-2] Goal Plan of Care Note [code = 70301-1] Goal Plan of Care Note [code = 20035-8] Goal Plan of Care Note [code = 65287-3] Goal Plan of Care Note [code = 24996-7] Goal Plan of Care Note [code = 58510-8] Goal Plan of Care Note [code = 51312-9] Goal Plan of Care Note [code = 64362-6] Goal Plan of Care Note [code = 64086-8] Goal Plan of Care Note [code = 86841-9] Goal Plan of Care Note [code = 47241-4] Goal Plan of Care Note [code = 88388-1] Goal Plan of Care Note [code = 11539-7] Goal Plan of Care Note [code = 72019-6] Goal Plan of Care Note [code = 12176-6] Goal Plan of Care Note [code = 07024-0] Goal Plan of Care Note [code = 52601-7] Goal Plan of Care Note [code = 61460-3] Goal Plan of Care Note [code = 41454-0] Goal Plan of Care Note [code = 44947-8] Goal Plan of Care Note [code = 99178-1] Goal Plan of Care Note [code = 58077-1] Goal Plan of Care Note [code = 24786-2] Goal Plan of Care Note [code = 77354-7] Goal Plan of Care Note [code = 66768-4] Goal Plan of Care Note [code = 98115-8] Goal Plan of Care Note [code = 02270-6] Goal Plan of Care Note [code = 83766-3] Goal Plan of Care Note [code = 85297-7] Goal Plan of Care Note [code = 90590-1] Goal Plan of Care Note [code = 59670-9] Goal Plan of Care Note [code = 08742-6] Goal Plan of Care Note [code = 69012-3] Goal Plan of Care Note [code = 18779-6] Goal Plan of Care Note [code = 66371-5] Goal Plan of Care Note [code = 59198-2] Goal Plan of Care Note [code = 26754-2] Goal Plan of Care Note [code = 62548-7] Goal Plan of Care Note [code = 49238-7] Goal Plan of Care Note [code = 36239-5] Goal Plan of Care Note [code = 71452-3] Goal Plan of Care Note [code = 99477-2] Goal Plan of Care Note [code = 89673-5] Goal Plan of Care Note [code = 76932-0] Goal Plan of Care Note [code = 03536-9] Goal Plan of Care Note [code = 78952-1] Goal Plan of Care Note [code = 66668-6] Goal Plan of Care Note [code = 18667-9] Goal Plan of Care Note [code = 40385-5] Goal Plan of Care Note [code = 37626-7] Goal Plan of Care Note [code = 14673-9] Goal Plan of Care Note [code = 22888-6] Goal Plan of Care Note [code = 78119-1] Goal Plan of Care Note [code = 81212-1] Goal Plan of Care Note [code = 07113-6] Goal Plan of Care Note [code = 18173-4] Goal Plan of Care Note [code = 41510-1] Goal Plan of Care Note [code = 13378-3] Goal Plan of Care Note [code = 24325-6] Goal Plan of Care Note [code = 72858-6] Goal Plan of Care Note [code = 95793-6] Goal Plan of Care Note [code = 94305-6] Goal Plan of Care Note [code = 20793-5] Goal Plan of Care Note [code = 49533-8] Goal Plan of Care Note [code = 77668-1] Goal Plan of Care Note [code = 49599-7] Goal Plan of Care Note [code = 70616-2] Goal Plan of Care Note [code = 96458-2] Goal Plan of Care Note [code = 41491-1] Goal Plan of Care Note [code = 96768-7] Goal Plan of Care Note [code = 90494-7] Goal Plan of Care Note [code = 89693-8] Goal Plan of Care Note [code = 46051-8] Goal Plan of Care Note [code = 51260-3] Goal Plan of Care Note [code = 55694-8] Goal Plan of Care Note [code = 29190-0] Goal Plan of Care Note [code = 11331-6] Goal Plan of Care Note [code = 11116-7] Goal Plan of Care Note [code = 16285-7] Goal Plan of Care Note [code = 07524-7] Goal Plan of Care Note [code = 13239-0] Goal Plan of Care Note [code = 70304-8] Goal Plan of Care Note [code = 72065-6] Goal Plan of Care Note [code = 76248-6] Goal Plan of Care Note [code = 03951-7] Goal Plan of Care Note [code = 59571-6] Goal Plan of Care Note [code = 80888-0] Goal Plan of Care Note [code = 52544-6] Goal Plan of Care Note [code = 53866-6] Goal Plan of Care Note [code = 48738-8] Goal Plan of Care Note [code = 62942-3] Goal Plan of Care Note [code = 13676-4] Goal Plan of Care Note [code = 46179-1] Goal Plan of Care Note [code = 43352-3] Goal Plan of Care Note [code = 38832-8] Goal Plan of Care Note [code = 30563-1] Goal Plan of Care Note [code = 44747-9] Goal Plan of Care Note [code = 36729-2] Goal Plan of Care Note [code = 60092-9] Goal Plan of Care Note [code = 13608-3] Goal Plan of Care Note [code = 04191-7] Goal Plan of Care Note [code = 87726-2] Goal Plan of Care Note [code = 85270-2] Goal Plan of Care Note [code = 28657-5] Goal Plan of Care Note [code = 88165-2] Encounters Start Date/Time End Date/Time Encounter Type Admission Type Attending [facility] Care Department Encounter ID Source 2025-04-20 08:05:23 2025-04-20 08:05:23 Outpatient SFA SFA [id number] 0521 Teodoro Cantu 2025-04-04 10:24:58 2025-04-04 10:24:58 Outpatient SFA SFA 0505 Teodoro Cantu 2025-04-04 00:00:00 2025-04-04 00:00:00 Outpatient Visit SFA [id number] Teodoro Cantu 2025-03-21 14:20:25 2025-03-21 14:20:25 Outpatient SFA SFA [id number] 0421 Teodoro Cantu 2025-02-28 09:32:02 2025-02-28 09:32:02 Outpatient SFA SFA 0331 Teodoro Dodge Pepe 2025-01-25 17:03:09 2025-01-25 17:03:09 Outpatient SFA SFA 5 Teodoro Dodge Pepe 2025-01-25 00:00:00 2025-01-25 00:00:00 Outpatient Visit SFA [id number] Teodoro Dodge Pepe 2025-01-18 08:06:21 2025-01-18 08:06:21 Outpatient SFA SFA 8 Teodoro Dodge Pepe 2025-01-17 10:56:24 2025-01-17 10:56:24 Outpatient SFA SFA 0217 Teodoro Dodge Pepe 2025-01-17 00:00:00 2025-01-17 00:00:00 Outpatient Visit SFA [id number] Teodoro Dodge Pepe 2024-12-27 00:00:00 2024-12-27 00:00:00 Outpatient MD YARA ARCHER [id number] Yara Hickmanybold 2024-12-27 00:00:00 2024-12-27 00:00:00 Outpatient [facility] YARA [id number] [facility] 2024-12-15 13:45:16 2024-12-15 13:45:16 Outpatient SFA SFA [id number] Teodoro Cantu 2024-12-06 09:22:09 2024-12-06 09:22:09 Outpatient SFA SFA 0106 Teodoro Cantu 2024-12-06 00:00:00 2024-12-06 00:00:00 Outpatient Visit SFA [id number] f36da8 Teodoro Cantu 2024-11-18 08:09:11 2024-11-18 08:09:11 Outpatient SFA SFA [id number] 1219 Teodoro Cantu 2024-11-16 08:20:51 2024-11-16 08:20:51 Outpatient SFA SFA 7 Teodoro Cantu 2024-11-15 08:51:16 2024-11-15 08:51:16 Outpatient SFA SFA 6 Teodoro Cantu 2024-11-15 00:00:00 2024-11-15 00:00:00 Outpatient Visit SFA [id number]-[id number] Teodoro Cantu 2024-11-04 10:21:33 2024-11-04 10:21:33 Outpatient SFA SFA [id number] 1205 Teodoro Dodge Pepe 2024-11-04 00:00:00 2024-11-04 00:00:00 Outpatient Visit SFA [id number] [id number] Teoodro Cantu 2024-10-11 15:15:17 2024-10-11 15:15:17 Outpatient SFA SFA [id number] 1111 Teodoro Cantu 2024-10-11 00:00:00 2024-10-11 00:00:00 Outpatient Visit SFA [id number] [id number] [id number] ae2aa2 Teodoro Cantu 2024-10-06 11:40:53 2024-10-06 11:40:53 Outpatient SFA SFA [id number] 1106 Teodoro Cantu 2024-10-06 00:00:00 2024-10-06 00:00:00 Outpatient Visit SFA [id number] ff4-41db-b [id number] dbb72b Teodoro Cantu 2024-09-17 00:00:00 2024-09-18 14:17:57 Telephone Erwin Stringer [facility] [id number] [facility] 2024-08-31 09:58:56 2024-08-31 09:58:56 Outpatient SFA SFA 1001 Teodoro Cantu 2024-08-31 00:00:00 2024-08-31 00:00:00 Outpatient Visit SFA [id number] Teodoro Cantu 2024-08-30 15:38:15 2024-08-30 15:38:15 Outpatient SFA SFA 929 Teodoro Cantu 2024-08-30 00:00:00 2024-08-30 00:00:00 Outpatient Visit SFA [id number] ad807u Teodoro Cantu 2024-08-24 11:05:50 2024-08-24 11:05:50 Outpatient SFA SFA 923 Teodoro Cantu 2024-08-24 00:00:00 2024-08-24 00:00:00 Outpatient Visit SFA [id number] dc1-cb5fb2 b7bcc5 Teodoro Cantu 2024-07-21 10:14:44 2024-07-21 10:14:44 Outpatient SFA SFA 820 Teodoro Dodge Pepe 2024-06-29 13:30:00 2024-06-29 13:30:00 Outpatient KAROLINA POOL [id number] [facility] 2024-06-07 15:30:00 2024-06-07 15:30:00 Outpatient CESAR CARTER YARA [id number] [facility] 2024-05-31 08:30:00 2024-05-31 08:30:00 Outpatient CESAR CARTER [id number] [facility] 2024-05-12 16:00:00 2024-05-12 16:00:00 Outpatient SILVINO GRIGGS [id number] [facility] 2023-12-19 14:23:51 2023-12-19 14:23:51 Outpatient SFA SFA [id number] 0119 Teodoro Dodge Pepe 2023-12-03 08:04:55 2023-12-03 08:04:55 Outpatient SFA SFA [id number] 0103 Teodoro Dodge Bartley 2023-12-02 16:03:21 2023-12-02 16:03:21 Outpatient SFA SFA [id number] 010 Teodoro Dodge Bartley 2023-08-25 08:01:04 2023-08-25 08:01:04 Outpatient SFA SFA 0925 Teodoro Dodge Pepe 2023-07-21 13:39:28 2023-07-21 13:39:28 Outpatient SFA SFA 0821 Teodoro Dodge Pepe 2023-07-16 10:31:58 2023-07-16 10:31:58 Outpatient SFA SFA [id number] 0816 Teodoro Dodge Bartley 2023-07-05 12:43:45 2023-07-05 12:43:45 Outpatient SFA SFA [id number] Teodoro Dodge Pepe 2023-05-22 08:31:11 2023-05-22 08:31:11 Outpatient SFA SFA [id number] 0622 Teodoro Dodge Pepe 2023-05-17 09:09:52 2023-05-17 09:09:52 Outpatient SFA SFA [id number] 0617 Teodoro Dodge Pepe 2023-04-17 11:13:31 2023-04-17 11:13:31 Outpatient SFA SFA 0518 Teodoro Cantu 2023-04-09 08:04:08 2023-04-09 08:04:08 Outpatient SFA SFA 05 Teodoro Cantu 2023-03-31 08:31:03 2023-03-31 08:31:03 Outpatient SFA SFA 0501 Teodoro Cantu 2023-03-22 14:27:40 2023-03-22 14:27:40 Outpatient SFA SFA 0422 Teodoro Cantu 2022-11-06 15:54:24 2022-11-06 15:54:24 Outpatient SFA SFA 1207 Teodoro Cantu 2022-11-05 09:27:51 2022-11-05 09:27:51 Outpatient SFA SFA 1206 Teodoro Cantu 2022-11-05 00:00:00 2022-11-05 00:00:00 Outpatient Visit [id number] [id number]-b [id number] fc35cc 2022-10-22 00:00:00 2022-10-22 00:00:00 Outpatient Visit [id number] [id number] -g8vq-[id number] 9q3-3u06-e 1cf-d5befc [id number] 4329-10-19 13:33:28 2022-09-18 13:33:28 Outpatient SFA SFA 1019 Teodoro Cantu 2022-09-18 00:00:00 2022-09-18 00:00:00 Outpatient Visit [id number] l04-1540-4 a01-21b80b [id number] 2022-09-11 08:12:03 2022-09-11 08:12:03 Outpatient SFA SFA 101 Teodoro Cantu 2022-09-11 00:00:00 2022-09-11 00:00:00 Outpatient Visit [id number] -[id number] 60b-4683-a [id number] [id number] 2022-07-03 00:00:00 2022-07-03 00:00:00 Outpatient Visit [id number] 48dc-4dde -[id number] [id number] 8dc-4dde-b 704-2709fa 1093be 2022-06-26 00:00:00 2022-06-26 00:00:00 Outpatient Visit [id number] -[id number] 4j2-05vc-2 [id number] Results Test Description Test Time Test Comments Results Result Co mments Source [facility] [id number] 00:00:00* Test Item Value Reference Range Interpretation Comme nts WBC (test code = 1001) 6.5 K/UL RBC (test code = 1002) 5.60 M/UL HEMOGLOBIN (test code = 1003) 14.4 G/DL HEMATOCRIT (test code = 1004) 45.4 % MCV (test code = 1005) 81.1 fL MCH (test code = 1006) 25.7 PG MCHC (test code = 1007) 31.7 G/DL RDW (test code = 1038) 15.5 % NEUTROPHILS (test code = 1008) 63.8 % LYMPHOCYTES (test code = 1010) 26.4 % MONOCYTES (test code = 1011) 7.4 % EOSINOPHILS (test code = 1012) 1.6 % BASOPHILS (test code = 1013) 0.5 % IMMATURE GRANULOCYTES (test code = 1036) 0.3 % NUCLEATED RBCS (test code = 1065) 0.0 /100WBC'S PLATELET COUNT (test code = 1015) 201 K/UL ABSOLUTE NEUTROPHILS (test c ode = 1066) 4.12 K/UL ABSOLUTE LYMPHOCYTES (test c ode = 1067) 1.70 K/UL ABSOLUTE MONOCYTES (test cod e = 1068) 0.48 K/UL ABSOLUTE EOSINOPHILS (test c ode = 1040) 0.10 K/UL ABSOLUTE BASOPHILS (test cod e = 1069) 0.03 K/UL ABS IMMATURE GRANULOCYTES (t est code = 1020) 0.02 K/UL ABS NUCLEATED RBCS (test cod e = 45076) 0.00 K/UL Teodoro CantuLIPID [id number] 00:00:00* Test Item Value Reference Range Interpretation Comme nts CHOLESTEROL (test code = 2210) 187 MG/DL TRIGLYCERIDES (test code = 2232) 220 MG/DL HDL CHOLESTEROL (test code = 2220) 41 MG/DL CALC LDL CHOL (test code = 2237) 112 MG/DL RISK RATIO LDL/HDL (test cod e = 2238) 2.73 RATIO Teodoro CantuHEMOGLOBIN [id number] 00:00:00* Test Item Value Reference Range Interpretation Comme nts HEMOGLOBIN A1c (test code = 82791) 6.8 % Teodoro CantuCOMPREHENSIVE METABOLIC [id number] 00:00:00* Test Item Value Reference Range Interpretation Comme nts GLUCOSE (test code = 2217) 99 MG/DL BUN (test code = 2208) 14 MG/DL CREATININE (test code = 2214) 0.67 MG/DL eGFR (2020 CKD-EPI) (test code = 66785) 112 ML/MIN/1.73 CALC BUN/CREAT (test code = 2235) 21 RATIO SODIUM (test code = 2231) 139 MEQ/L POTASSIUM (test code = 2228) 4.6 MEQ/L CHLORIDE (test code = 2215) 101 MEQ/L CARBON DIOXIDE (test code = 2206) 20 MEQ/L CALCIUM (test code = 2209) 9.5 MG/DL PROTEIN, TOTAL (test code = 2229) 7.1 G/DL ALBUMIN (test code = 2201) 4.5 G/DL CALC GLOBULIN (test code = 2240) 2.6 G/DL CALC A/G RATIO (test code = 2234) 1.7 RATIO BILIRUBIN, TOTAL (test code = 2207) 0.4 MG/DL ALKALINE PHOSPHATASE (test code = 2204) 117 U/L AST (test code = 2218) 15 U/L ALT (test code = 2219) 16 U/L Teodoro CantuURINALYSIS W/REFLEX [id number] 00:00:00* Test Item Value Reference Range Interpretation Comme nts COLOR (test code = 1501) YELLOW APPEARANCE (test code = 1502) CLEAR SPECIFIC GRAVITY (test code = 1503) 1.015 LEUKOCYTE ESTERASE (test cod e = 1504) NEGATIVE NITRITE (test code = 1505) NEGATIVE pH (test code = 1506) 5.0 PROTEIN (test code = 1507) NEGATIVE GLUCOSE (test code = 1508) 3+ KETONES (test code = 1509) NEGATIVE UROBILINOGEN (test code = 1510) 0.2 MG/DL BILIRUBIN (test code = 1511) NEGATIVE OCCULT BLOOD (test code = 1512) NEGATIVE Teodoro CantuPSA, [id number] 00:00:00* Test Item Value Reference Range Interpretation Comme bria PSA, TOTAL (test code = 2606) 0.18 NG/ML Teodoro CantuHEPATITIS C [id number] 00:00:00* Test Item Value Reference Range Interpretation Comme nts HEPATITIS C ANTIBODY (test c ode = 4675) NON-REACTIVE Teodoro Dodge AustinHIV 1/2 4TH GEN, RFLX [id number] 00:00:00* Test Item Value Reference Range Interpretation Comme bria HIV 1/2 4TH GEN, RFLX CONF ( test code = 3514) NON-REACTIVE Teodoro [id number] 00:00:00* Test Item Value Reference Range Interpretation Comme nts TESTOSTERONE (test code = 2830) 169 NG/DL Teodoro Dodge AustinHEMOGLOBIN [id number] 00:00:00* Test Item Value Reference Range Interpretation Comme nts HEMOGLOBIN A1c (test code = 26318) 7.0 % Teodoro Dodge [id number] 00:00:00* Test Item Value Reference Range Interpretation Comme nts TESTOSTERONE (test code = 2830) 169 NG/DL Teodoro Dodge AustinHEMOGLOBIN [id number] 00:00:00* Test Item Value Reference Range Interpretation Comme nts HEMOGLOBIN A1c (test code = 22862) 7.0 % Teodoro Dodge [id number] 00:00:00* Test Item Value Reference Range Interpretation Comme nts TESTOSTERONE (test code = 2830) 169 NG/DL Teodoro Dodge AustinHEMOGLOBIN [id number] 00:00:00* Test Item Value Reference Range Interpretation Comme nts HEMOGLOBIN A1c (test code = 16738) 7.0 % Teodoro [id number] 00:00:00* Test Item Value Reference Range Interpretation Comme nts TESTOSTERONE (test code = 2830) 169 NG/DL Teodoro Dodge AustinHEMOGLOBIN [id number] 00:00:00* Test Item Value Reference Range Interpretation Comme nts HEMOGLOBIN A1c (test code = 68227) 7.0 % Teodoro CantuCBC W/AUTO [id number] 00:00:00* Test Item Value Reference Range Interpretation Comme nts WBC (test code = 1001) 5.8 K/UL RBC (test code = 1002) 5.03 M/UL HEMOGLOBIN (test code = 1003) 13.2 G/DL HEMATOCRIT (test code = 1004) 41.1 % MCV (test code = 1005) 81.7 fL MCH (test code = 1006) 26.2 PG MCHC (test code = 1007) 32.1 G/DL RDW (test code = 1038) 15.8 % NEUTROPHILS (test code = 1008) 62.8 % LYMPHOCYTES (test code = 1010) 27.1 % MONOCYTES (test code = 1011) 7.5 % EOSINOPHILS (test code = 1012) 1.7 % BASOPHILS (test code = 1013) 0.7 % IMMATURE GRANULOCYTES (test code = 1036) 0.2 % NUCLEATED RBCS (test code = 1065) 0.0 /100WBC'S PLATELET COUNT (test code = 1015) 215 K/UL ABSOLUTE NEUTROPHILS (test c ode = 1066) 3.67 K/UL ABSOLUTE LYMPHOCYTES (test c ode = 1067) 1.58 K/UL ABSOLUTE MONOCYTES (test cod e = 1068) 0.44 K/UL ABSOLUTE EOSINOPHILS (test c ode = 1040) 0.10 K/UL ABSOLUTE BASOPHILS (test cod e = 1069) 0.04 K/UL ABS IMMATURE GRANULOCYTES (t est code = 1020) 0.01 K/UL ABS NUCLEATED RBCS (test cod e = 27968) 0.00 K/UL Teodoro CantuLIPID [id number] 00:00:00* Test Item Value Reference Range Interpretation Comme nts CHOLESTEROL (test code = 2210) 190 MG/DL TRIGLYCERIDES (test code = 2232) 172 MG/DL HDL CHOLESTEROL (test code = 2220) 41 MG/DL CALC LDL CHOL (test code = 2237) 120 MG/DL RISK RATIO LDL/HDL (test cod e = 2238) 2.93 RATIO Teodoro CantuHEMOGLOBIN [id number] 00:00:00* Test Item Value Reference Range Interpretation Comme nts HEMOGLOBIN A1c (test code = 55176) 7.3 % Teodoro CantuCOMPREHENSIVE METABOLIC [id number] 00:00:00* Test Item Value Reference Range Interpretation Comme nts GLUCOSE (test code = 2217) 115 MG/DL BUN (test code = 2208) 17 MG/DL CREATININE (test code = 2214) 0.66 MG/DL eGFR (2020 CKD-EPI) (test code = 00359) 112 ML/MIN/1.73 CALC BUN/CREAT (test code = 2235) 26 RATIO SODIUM (test code = 2231) 140 MEQ/L POTASSIUM (test code = 2228) 4.4 MEQ/L CHLORIDE (test code = 2215) 103 MEQ/L CARBON DIOXIDE (test code = 2206) 22 MEQ/L CALCIUM (test code = 2209) 8.8 MG/DL PROTEIN, TOTAL (test code = 2229) 6.4 G/DL ALBUMIN (test code = 2201) 4.0 G/DL CALC GLOBULIN (test code = 2240) 2.4 G/DL CALC A/G RATIO (test code = 2234) 1.7 RATIO BILIRUBIN, TOTAL (test code = 2207) 0.3 MG/DL ALKALINE PHOSPHATASE (test code = 2204) 118 U/L AST (test code = 2218) 9 U/L ALT (test code = 2219) 12 U/L Teodoro CantuPSA, [id number] 00:00:00* Test Item Value Reference Range Interpretation Comme nts PSA, TOTAL (test code = 2606) 0.19 NG/ML Teodoro CantuURINALYSIS W/REFLEX [id number] 00:00:00* Test Item Value Reference Range Interpretation Comme nts COLOR (test code = 1501) YELLOW APPEARANCE (test code = 1502) CLEAR SPECIFIC GRAVITY (test code = 1503) 1.033 LEUKOCYTE ESTERASE (test cod e = 1504) NEGATIVE NITRITE (test code = 1505) NEGATIVE pH (test code = 1506) 5.0 PROTEIN (test code = 1507) NEGATIVE GLUCOSE (test code = 1508) 3+ KETONES (test code = 1509) NEGATIVE UROBILINOGEN (test code = 1510) 0.2 MG/DL BILIRUBIN (test code = 1511) NEGATIVE OCCULT BLOOD (test code = 1512) NEGATIVE Teodoro Dodge AustinALBUMIN/CREATININE RATIO, RANDOM [id number] 00:00:00* Test Item Value Reference Range Interpretation Comme bria CREATININE, URINE, CONC. (te st code = 2072) 70.8 MG/DL ALBUMIN, URINE, RANDOM (test code = 48531) 0.3 MG/DL CALC ALBUMIN/CREAT, RND (eden t code = 48480) 4 MG/G Teodoro Dodge AustinHIV 1/2 4TH GEN, RFLX [id number] 00:00:00* Test Item Value Reference Range Interpretation Comme bria HIV 1/2 4TH GEN, RFLX CONF ( test code = 3514) NON-REACTIVE Teodoro CantuHEPATITIS C [id number] 00:00:00* Test Item Value Reference Range Interpretation Comme bria HEPATITIS C ANTIBODY (test c ode = 4675) NON-REACTIVE Teodoro CantuCBC W/AUTO [id number] 00:00:00* Test Item Value Reference Range Interpretation Comme bria WBC (test code = 1001) 5.8 K/UL RBC (test code = 1002) 5.03 M/UL HEMOGLOBIN (test code = 1003) 13.2 G/DL HEMATOCRIT (test code = 1004) 41.1 % MCV (test code = 1005) 81.7 fL MCH (test code = 1006) 26.2 PG MCHC (test code = 1007) 32.1 G/DL RDW (test code = 1038) 15.8 % NEUTROPHILS (test code = 1008) 62.8 % LYMPHOCYTES (test code = 1010) 27.1 % MONOCYTES (test code = 1011) 7.5 % EOSINOPHILS (test code = 1012) 1.7 % BASOPHILS (test code = 1013) 0.7 % IMMATURE GRANULOCYTES (test code = 1036) 0.2 % NUCLEATED RBCS (test code = 1065) 0.0 /100WBC'S PLATELET COUNT (test code = 1015) 215 K/UL ABSOLUTE NEUTROPHILS (test c ode = 1066) 3.67 K/UL ABSOLUTE LYMPHOCYTES (test c ode = 1067) 1.58 K/UL ABSOLUTE MONOCYTES (test cod e = 1068) 0.44 K/UL ABSOLUTE EOSINOPHILS (test c ode = 1040) 0.10 K/UL ABSOLUTE BASOPHILS (test cod e = 1069) 0.04 K/UL ABS IMMATURE GRANULOCYTES (t est code = 1020) 0.01 K/UL ABS NUCLEATED RBCS (test cod e = 34850) 0.00 K/UL Teodoro CantuLIPID [id number] 00:00:00* Test Item Value Reference Range Interpretation Comme nts CHOLESTEROL (test code = 2210) 190 MG/DL TRIGLYCERIDES (test code = 2232) 172 MG/DL HDL CHOLESTEROL (test code = 2220) 41 MG/DL CALC LDL CHOL (test code = 2237) 120 MG/DL RISK RATIO LDL/HDL (test cod e = 2238) 2.93 RATIO Teodoro CantuHEMOGLOBIN [id number] 00:00:00* Test Item Value Reference Range Interpretation Comme nts HEMOGLOBIN A1c (test code = 50042) 7.3 % Teodoro CantuCOMPREHENSIVE METABOLIC [id number] 00:00:00* Test Item Value Reference Range Interpretation Comme nts GLUCOSE (test code = 2217) 115 MG/DL BUN (test code = 2208) 17 MG/DL CREATININE (test code = 2214) 0.66 MG/DL eGFR (2020 CKD-EPI) (test code = 06524) 112 ML/MIN/1.73 CALC BUN/CREAT (test code = 2235) 26 RATIO SODIUM (test code = 2231) 140 MEQ/L POTASSIUM (test code = 2228) 4.4 MEQ/L CHLORIDE (test code = 2215) 103 MEQ/L CARBON DIOXIDE (test code = 2206) 22 MEQ/L CALCIUM (test code = 2209) 8.8 MG/DL PROTEIN, TOTAL (test code = 2229) 6.4 G/DL ALBUMIN (test code = 2201) 4.0 G/DL CALC GLOBULIN (test code = 2240) 2.4 G/DL CALC A/G RATIO (test code = 2234) 1.7 RATIO BILIRUBIN, TOTAL (test code = 2207) 0.3 MG/DL ALKALINE PHOSPHATASE (test code = 2204) 118 U/L AST (test code = 2218) 9 U/L ALT (test code = 2219) 12 U/L Teodoro CantuPSA, [id number] 00:00:00* Test Item Value Reference Range Interpretation Comme bria PSA, TOTAL (test code = 2606) 0.19 NG/ML Teodoro CantuURINALYSIS W/REFLEX [id number] 00:00:00* Test Item Value Reference Range Interpretation Comme nts COLOR (test code = 1501) YELLOW APPEARANCE (test code = 1502) CLEAR SPECIFIC GRAVITY (test code = 1503) 1.033 LEUKOCYTE ESTERASE (test cod e = 1504) NEGATIVE NITRITE (test code = 1505) NEGATIVE pH (test code = 1506) 5.0 PROTEIN (test code = 1507) NEGATIVE GLUCOSE (test code = 1508) 3+ KETONES (test code = 1509) NEGATIVE UROBILINOGEN (test code = 1510) 0.2 MG/DL BILIRUBIN (test code = 1511) NEGATIVE OCCULT BLOOD (test code = 1512) NEGATIVE Teodoro CantuALBUMIN/CREATININE RATIO, RANDOM [id number] 00:00:00* Test Item Value Reference Range Interpretation Comme bria CREATININE, URINE, CONC. (te st code = 2072) 70.8 MG/DL ALBUMIN, URINE, RANDOM (test code = 93448) 0.3 MG/DL CALC ALBUMIN/CREAT, RND (eden t code = 83963) 4 MG/G Teodoro CantuHIV 1/2 4TH GEN, RFLX [id number] 00:00:00* Test Item Value Reference Range Interpretation Comme bria HIV 1/2 4TH GEN, RFLX CONF ( test code = 3514) NON-REACTIVE Teodoro CantuHEPATITIS C [id number] 00:00:00* Test Item Value Reference Range Interpretation Comme bria HEPATITIS C ANTIBODY (test c ode = 4675) NON-REACTIVE Teodoro CantuCBC W/AUTO [id number] 00:00:00* Test Item Value Reference Range Interpretation Comme nts WBC (test code = 1001) 5.8 K/UL RBC (test code = 1002) 5.03 M/UL HEMOGLOBIN (test code = 1003) 13.2 G/DL HEMATOCRIT (test code = 1004) 41.1 % MCV (test code = 1005) 81.7 fL MCH (test code = 1006) 26.2 PG MCHC (test code = 1007) 32.1 G/DL RDW (test code = 1038) 15.8 % NEUTROPHILS (test code = 1008) 62.8 % LYMPHOCYTES (test code = 1010) 27.1 % MONOCYTES (test code = 1011) 7.5 % EOSINOPHILS (test code = 1012) 1.7 % BASOPHILS (test code = 1013) 0.7 % IMMATURE GRANULOCYTES (test code = 1036) 0.2 % NUCLEATED RBCS (test code = 1065) 0.0 /100WBC'S PLATELET COUNT (test code = 1015) 215 K/UL ABSOLUTE NEUTROPHILS (test c ode = 1066) 3.67 K/UL ABSOLUTE LYMPHOCYTES (test c ode = 1067) 1.58 K/UL ABSOLUTE MONOCYTES (test cod e = 1068) 0.44 K/UL ABSOLUTE EOSINOPHILS (test c ode = 1040) 0.10 K/UL ABSOLUTE BASOPHILS (test cod e = 1069) 0.04 K/UL ABS IMMATURE GRANULOCYTES (t est code = 1020) 0.01 K/UL ABS NUCLEATED RBCS (test cod e = 84573) 0.00 K/UL Teodoro CantuLIPID [id number] 00:00:00* Test Item Value Reference Range Interpretation Comme nts CHOLESTEROL (test code = 2210) 190 MG/DL TRIGLYCERIDES (test code = 2232) 172 MG/DL HDL CHOLESTEROL (test code = 2220) 41 MG/DL CALC LDL CHOL (test code = 2237) 120 MG/DL RISK RATIO LDL/HDL (test cod e = 2238) 2.93 RATIO Teodoro CantuHEMOGLOBIN [id number] 00:00:00* Test Item Value Reference Range Interpretation Comme nts HEMOGLOBIN A1c (test code = 38936) 7.3 % Teodoro Dodge PepeCOMPREHENSIVE METABOLIC [id number] 00:00:00* Test Item Value Reference Range Interpretation Comme nts GLUCOSE (test code = 2217) 115 MG/DL BUN (test code = 2208) 17 MG/DL CREATININE (test code = 2214) 0.66 MG/DL eGFR (2020 CKD-EPI) (test code = 17557) 112 ML/MIN/1.73 CALC BUN/CREAT (test code = 2235) 26 RATIO SODIUM (test code = 2231) 140 MEQ/L POTASSIUM (test code = 2228) 4.4 MEQ/L CHLORIDE (test code = 2215) 103 MEQ/L CARBON DIOXIDE (test code = 2206) 22 MEQ/L CALCIUM (test code = 2209) 8.8 MG/DL PROTEIN, TOTAL (test code = 2229) 6.4 G/DL ALBUMIN (test code = 2201) 4.0 G/DL CALC GLOBULIN (test code = 2240) 2.4 G/DL CALC A/G RATIO (test code = 2234) 1.7 RATIO BILIRUBIN, TOTAL (test code = 2207) 0.3 MG/DL ALKALINE PHOSPHATASE (test code = 2204) 118 U/L AST (test code = 2218) 9 U/L ALT (test code = 2219) 12 U/L Teodoro CantuPSA, [id number] 00:00:00* Test Item Value Reference Range Interpretation Comme nts PSA, TOTAL (test code = 2606) 0.19 NG/ML Teodoro Dodge PepeURINALYSIS W/REFLEX [id number] 00:00:00* Test Item Value Reference Range Interpretation Comme nts COLOR (test code = 1501) YELLOW APPEARANCE (test code = 1502) CLEAR SPECIFIC GRAVITY (test code = 1503) 1.033 LEUKOCYTE ESTERASE (test cod e = 1504) NEGATIVE NITRITE (test code = 1505) NEGATIVE pH (test code = 1506) 5.0 PROTEIN (test code = 1507) NEGATIVE GLUCOSE (test code = 1508) 3+ KETONES (test code = 1509) NEGATIVE UROBILINOGEN (test code = 1510) 0.2 MG/DL BILIRUBIN (test code = 1511) NEGATIVE OCCULT BLOOD (test code = 1512) NEGATIVE Teodoro CantuALBUMIN/CREATININE RATIO, RANDOM [id number] 00:00:00* Test Item Value Reference Range Interpretation Comme nts CREATININE, URINE, CONC. (te st code = 2072) 70.8 MG/DL ALBUMIN, URINE, RANDOM (test code = 98901) 0.3 MG/DL CALC ALBUMIN/CREAT, RND (eden t code = 47056) 4 MG/G Teodoro CantuHIV 1/2 4TH GEN, RFLX [id number] 00:00:00* Test Item Value Reference Range Interpretation Comme nts HIV 1/2 4TH GEN, RFLX CONF ( test code = 3514) NON-REACTIVE Teodoro CantuHEPATITIS C [id number] 00:00:00* Test Item Value Reference Range Interpretation Comme nts HEPATITIS C ANTIBODY (test c ode = 4675) NON-REACTIVE Toedoro CantuCBC W/AUTO [id number] 00:00:00* Test Item Value Reference Range Interpretation Comme nts WBC (test code = 1001) 5.8 K/UL RBC (test code = 1002) 5.03 M/UL HEMOGLOBIN (test code = 1003) 13.2 G/DL HEMATOCRIT (test code = 1004) 41.1 % MCV (test code = 1005) 81.7 fL MCH (test code = 1006) 26.2 PG MCHC (test code = 1007) 32.1 G/DL RDW (test code = 1038) 15.8 % NEUTROPHILS (test code = 1008) 62.8 % LYMPHOCYTES (test code = 1010) 27.1 % MONOCYTES (test code = 1011) 7.5 % EOSINOPHILS (test code = 1012) 1.7 % BASOPHILS (test code = 1013) 0.7 % IMMATURE GRANULOCYTES (test code = 1036) 0.2 % NUCLEATED RBCS (test code = 1065) 0.0 /100WBC'S PLATELET COUNT (test code = 1015) 215 K/UL ABSOLUTE NEUTROPHILS (test c ode = 1066) 3.67 K/UL ABSOLUTE LYMPHOCYTES (test c ode = 1067) 1.58 K/UL ABSOLUTE MONOCYTES (test cod e = 1068) 0.44 K/UL ABSOLUTE EOSINOPHILS (test c ode = 1040) 0.10 K/UL ABSOLUTE BASOPHILS (test cod e = 1069) 0.04 K/UL ABS IMMATURE GRANULOCYTES (t est code = 1020) 0.01 K/UL ABS NUCLEATED RBCS (test cod e = 10152) 0.00 K/UL Teodoro CantuLIPID [id number] 00:00:00* Test Item Value Reference Range Interpretation Comme nts CHOLESTEROL (test code = 2210) 190 MG/DL TRIGLYCERIDES (test code = 2232) 172 MG/DL HDL CHOLESTEROL (test code = 2220) 41 MG/DL CALC LDL CHOL (test code = 2237) 120 MG/DL RISK RATIO LDL/HDL (test cod e = 2238) 2.93 RATIO Teodoro CantuHEMOGLOBIN [id number] 00:00:00* Test Item Value Reference Range Interpretation Comme nts HEMOGLOBIN A1c (test code = 05345) 7.3 % Teodoro CantuCOMPREHENSIVE METABOLIC [id number] 00:00:00* Test Item Value Reference Range Interpretation Comme nts GLUCOSE (test code = 2217) 115 MG/DL BUN (test code = 2208) 17 MG/DL CREATININE (test code = 2214) 0.66 MG/DL eGFR (2020 CKD-EPI) (test code = 87108) 112 ML/MIN/1.73 CALC BUN/CREAT (test code = 2235) 26 RATIO SODIUM (test code = 2231) 140 MEQ/L POTASSIUM (test code = 2228) 4.4 MEQ/L CHLORIDE (test code = 2215) 103 MEQ/L CARBON DIOXIDE (test code = 2206) 22 MEQ/L CALCIUM (test code = 2209) 8.8 MG/DL PROTEIN, TOTAL (test code = 2229) 6.4 G/DL ALBUMIN (test code = 2201) 4.0 G/DL CALC GLOBULIN (test code = 2240) 2.4 G/DL CALC A/G RATIO (test code = 2234) 1.7 RATIO BILIRUBIN, TOTAL (test code = 2207) 0.3 MG/DL ALKALINE PHOSPHATASE (test code = 2204) 118 U/L AST (test code = 2218) 9 U/L ALT (test code = 2219) 12 U/L Teodoro CantuPSA, [id number] 00:00:00* Test Item Value Reference Range Interpretation Comme nts PSA, TOTAL (test code = 2606) 0.19 NG/ML Teodoro CantuURINALYSIS W/REFLEX [id number] 00:00:00* Test Item Value Reference Range Interpretation Comme nts COLOR (test code = 1501) YELLOW APPEARANCE (test code = 1502) CLEAR SPECIFIC GRAVITY (test code = 1503) 1.033 LEUKOCYTE ESTERASE (test cod e = 1504) NEGATIVE NITRITE (test code = 1505) NEGATIVE pH (test code = 1506) 5.0 PROTEIN (test code = 1507) NEGATIVE GLUCOSE (test code = 1508) 3+ KETONES (test code = 1509) NEGATIVE UROBILINOGEN (test code = 1510) 0.2 MG/DL BILIRUBIN (test code = 1511) NEGATIVE OCCULT BLOOD (test code = 1512) NEGATIVE Teodoro Dodge AustinALBUMIN/CREATININE RATIO, RANDOM [id number] 00:00:00* Test Item Value Reference Range Interpretation Comme nts CREATININE, URINE, CONC. (te st code = 2072) 70.8 MG/DL ALBUMIN, URINE, RANDOM (test code = 66599) 0.3 MG/DL CALC ALBUMIN/CREAT, RND (eden t code = 02602) 4 MG/G Teodoro Dodge AustinHIV 1/2 4TH GEN, RFLX [id number] 00:00:00* Test Item Value Reference Range Interpretation Comme nts HIV 1/2 4TH GEN, RFLX CONF ( test code = 3514) NON-REACTIVE Teodoro CantuHEPATITIS C [id number] 00:00:00* Test Item Value Reference Range Interpretation Comme nts HEPATITIS C ANTIBODY (test c ode = 4675) NON-REACTIVE Teodoro CantuURINALYSIS W/REFLEX [id number] 00:00:00* Test Item Value Reference Range Interpretation Comme nts COLOR (test code = 1501) YELLOW APPEARANCE (test code = 1502) CLOUDY SPECIFIC GRAVITY (test code = 1503) 1.041 LEUKOCYTE ESTERASE (test cod e = 1504) NEGATIVE NITRITE (test code = 1505) NEGATIVE pH (test code = 1506) 5.5 PROTEIN (test code = 1507) NEGATIVE GLUCOSE (test code = 1508) 3+ KETONES (test code = 1509) 1+ UROBILINOGEN (test code = 1510) 1.0 MG/DL BILIRUBIN (test code = 1511) NEGATIVE OCCULT BLOOD (test code = 1512) NEGATIVE WHITE BLOOD CELLS (test code = 1513) 0-5 /HPF RED BLOOD CELLS (test code = 1514) 0-2 /HPF EPITHELIAL CELLS (test code = 37234) 0-5 /HPF BACTERIA (test code = 1515) NONE SEEN CRYSTALS (test code = 1516) PRESENT CASTS, HYALINE (test code = 1517) NONE SEEN Teodoro CantuALBUMIN/CREATININE RATIO, RANDOM [id number] 00:00:00* Test Item Value Reference Range Interpretation Comme nts CREATININE, URINE, CONC. (te st code = 2072) 90.5 MG/DL ALBUMIN, URINE, RANDOM (test code = 36174) 0.6 MG/DL CALC ALBUMIN/CREAT, RND (eden t code = 82609) 7 MG/G Teodoro CantuPSA, [id number] 00:00:00* Test Item Value Reference Range Interpretation Comme nts PSA, TOTAL (test code = 2606) 0.13 NG/ML Teodoro CantuCBC W/AUTO [id number] 00:00:00* Test Item Value Reference Range Interpretation Comme nts WBC (test code = 1001) 4.8 K/UL RBC (test code = 1002) 5.48 M/UL HEMOGLOBIN (test code = 1003) 14.2 G/DL HEMATOCRIT (test code = 1004) 43.8 % MCV (test code = 1005) 79.9 fL MCH (test code = 1006) 25.9 PG MCHC (test code = 1007) 32.4 G/DL RDW (test code = 1038) 15.8 % NEUTROPHILS (test code = 1008) 53.9 % LYMPHOCYTES (test code = 1010) 36.1 % MONOCYTES (test code = 1011) 7.5 % EOSINOPHILS (test code = 1012) 1.7 % BASOPHILS (test code = 1013) 0.4 % IMMATURE GRANULOCYTES (test code = 1036) 0.4 % NUCLEATED RBCS (test code = 1065) 0.0 /100WBC'S PLATELET COUNT (test code = 1015) 187 K/UL ABSOLUTE NEUTROPHILS (test c ode = 1066) 2.60 K/UL ABSOLUTE LYMPHOCYTES (test c ode = 1067) 1.74 K/UL ABSOLUTE MONOCYTES (test cod e = 1068) 0.36 K/UL ABSOLUTE EOSINOPHILS (test c ode = 1040) 0.08 K/UL ABSOLUTE BASOPHILS (test cod e = 1069) 0.02 K/UL ABS IMMATURE GRANULOCYTES (t est code = 1020) 0.02 K/UL ABS NUCLEATED RBCS (test cod e = 97060) 0.00 K/UL Teodoro CantuLIPID [id number] 00:00:00* Test Item Value Reference Range Interpretation Comme nts CHOLESTEROL (test code = 2210) 231 MG/DL TRIGLYCERIDES (test code = 2232) 321 MG/DL HDL CHOLESTEROL (test code = 2220) 33 MG/DL CALC LDL CHOL (test code = 2237) 149 MG/DL RISK RATIO LDL/HDL (test cod e = 2238) 4.52 RATIO Teodoro CantuHEMOGLOBIN [id number] 00:00:00* Test Item Value Reference Range Interpretation Comme nts HEMOGLOBIN A1c (test code = 60654) 11.6 % Teodoro CantuCOMPREHENSIVE METABOLIC [id number] 00:00:00* Test Item Value Reference Range Interpretation Comme nts GLUCOSE (test code = 2217) 262 MG/DL BUN (test code = 2208) 15 MG/DL CREATININE (test code = 2214) 0.63 MG/DL eGFR (2020 CKD-EPI) (test code = 77957) 114 ML/MIN/1.73 CALC BUN/CREAT (test code = 2235) 24 RATIO SODIUM (test code = 2231) 138 MEQ/L POTASSIUM (test code = 2228) 4.2 MEQ/L CHLORIDE (test code = 2215) 104 MEQ/L CARBON DIOXIDE (test code = 2206) 20 MEQ/L CALCIUM (test code = 2209) 9.6 MG/DL PROTEIN, TOTAL (test code = 2229) 7.3 G/DL ALBUMIN (test code = 2201) 4.6 G/DL CALC GLOBULIN (test code = 2240) 2.7 G/DL CALC A/G RATIO (test code = 2234) 1.7 RATIO BILIRUBIN, TOTAL (test code = 2207) 0.4 MG/DL ALKALINE PHOSPHATASE (test code = 2204) 163 U/L AST (test code = 2218) 15 U/L ALT (test code = 2219) 22 U/L Teodoro CantuURINALYSIS W/REFLEX [id number] 00:00:00* Test Item Value Reference Range Interpretation Comme nts COLOR (test code = 1501) YELLOW APPEARANCE (test code = 1502) CLOUDY SPECIFIC GRAVITY (test code = 1503) 1.041 LEUKOCYTE ESTERASE (test cod e = 1504) NEGATIVE NITRITE (test code = 1505) NEGATIVE pH (test code = 1506) 5.5 PROTEIN (test code = 1507) NEGATIVE GLUCOSE (test code = 1508) 3+ KETONES (test code = 1509) 1+ UROBILINOGEN (test code = 1510) 1.0 MG/DL BILIRUBIN (test code = 1511) NEGATIVE OCCULT BLOOD (test code = 1512) NEGATIVE WHITE BLOOD CELLS (test code = 1513) 0-5 /HPF RED BLOOD CELLS (test code = 1514) 0-2 /HPF EPITHELIAL CELLS (test code = 64343) 0-5 /HPF BACTERIA (test code = 1515) NONE SEEN CRYSTALS (test code = 1516) PRESENT CASTS, HYALINE (test code = 1517) NONE SEEN Teodoro Dodge PepeALBUMIN/CREATININE RATIO, RANDOM [id number] 00:00:00* Test Item Value Reference Range Interpretation Comme nts CREATININE, URINE, CONC. (te st code = 2072) 90.5 MG/DL ALBUMIN, URINE, RANDOM (test code = 37810) 0.6 MG/DL CALC ALBUMIN/CREAT, RND (eden t code = 71917) 7 MG/G Teodoro CantuPSA, [id number] 00:00:00* Test Item Value Reference Range Interpretation Comme nts PSA, TOTAL (test code = 2606) 0.13 NG/ML Teodoro CantuCBC W/AUTO [id number] 00:00:00* Test Item Value Reference Range Interpretation Comme nts WBC (test code = 1001) 4.8 K/UL RBC (test code = 1002) 5.48 M/UL HEMOGLOBIN (test code = 1003) 14.2 G/DL HEMATOCRIT (test code = 1004) 43.8 % MCV (test code = 1005) 79.9 fL MCH (test code = 1006) 25.9 PG MCHC (test code = 1007) 32.4 G/DL RDW (test code = 1038) 15.8 % NEUTROPHILS (test code = 1008) 53.9 % LYMPHOCYTES (test code = 1010) 36.1 % MONOCYTES (test code = 1011) 7.5 % EOSINOPHILS (test code = 1012) 1.7 % BASOPHILS (test code = 1013) 0.4 % IMMATURE GRANULOCYTES (test code = 1036) 0.4 % NUCLEATED RBCS (test code = 1065) 0.0 /100WBC'S PLATELET COUNT (test code = 1015) 187 K/UL ABSOLUTE NEUTROPHILS (test c ode = 1066) 2.60 K/UL ABSOLUTE LYMPHOCYTES (test c ode = 1067) 1.74 K/UL ABSOLUTE MONOCYTES (test cod e = 1068) 0.36 K/UL ABSOLUTE EOSINOPHILS (test c ode = 1040) 0.08 K/UL ABSOLUTE BASOPHILS (test cod e = 1069) 0.02 K/UL ABS IMMATURE GRANULOCYTES (t est code = 1020) 0.02 K/UL ABS NUCLEATED RBCS (test cod e = 81284) 0.00 K/UL Teodoro CantuLIPID [id number] 00:00:00* Test Item Value Reference Range Interpretation Comme nts CHOLESTEROL (test code = 2210) 231 MG/DL TRIGLYCERIDES (test code = 2232) 321 MG/DL HDL CHOLESTEROL (test code = 2220) 33 MG/DL CALC LDL CHOL (test code = 2237) 149 MG/DL RISK RATIO LDL/HDL (test cod e = 2238) 4.52 RATIO Teodoro CantuHEMOGLOBIN [id number] 00:00:00* Test Item Value Reference Range Interpretation Comme nts HEMOGLOBIN A1c (test code = 19820) 11.6 % Teodoro CantuCOMPREHENSIVE METABOLIC [id number] 00:00:00* Test Item Value Reference Range Interpretation Comme nts GLUCOSE (test code = 2217) 262 MG/DL BUN (test code = 2208) 15 MG/DL CREATININE (test code = 2214) 0.63 MG/DL eGFR (2020 CKD-EPI) (test code = 14283) 114 ML/MIN/1.73 CALC BUN/CREAT (test code = 2235) 24 RATIO SODIUM (test code = 2231) 138 MEQ/L POTASSIUM (test code = 2228) 4.2 MEQ/L CHLORIDE (test code = 2215) 104 MEQ/L CARBON DIOXIDE (test code = 2206) 20 MEQ/L CALCIUM (test code = 2209) 9.6 MG/DL PROTEIN, TOTAL (test code = 2229) 7.3 G/DL ALBUMIN (test code = 2201) 4.6 G/DL CALC GLOBULIN (test code = 2240) 2.7 G/DL CALC A/G RATIO (test code = 2234) 1.7 RATIO BILIRUBIN, TOTAL (test code = 2207) 0.4 MG/DL ALKALINE PHOSPHATASE (test code = 2204) 163 U/L AST (test code = 2218) 15 U/L ALT (test code = 2219) 22 U/L Teodoro CantuURINALYSIS W/REFLEX [id number] 00:00:00* Test Item Value Reference Range Interpretation Comme nts COLOR (test code = 1501) YELLOW APPEARANCE (test code = 1502) CLOUDY SPECIFIC GRAVITY (test code = 1503) 1.041 LEUKOCYTE ESTERASE (test cod e = 1504) NEGATIVE NITRITE (test code = 1505) NEGATIVE pH (test code = 1506) 5.5 PROTEIN (test code = 1507) NEGATIVE GLUCOSE (test code = 1508) 3+ KETONES (test code = 1509) 1+ UROBILINOGEN (test code = 1510) 1.0 MG/DL BILIRUBIN (test code = 1511) NEGATIVE OCCULT BLOOD (test code = 1512) NEGATIVE WHITE BLOOD CELLS (test code = 1513) 0-5 /HPF RED BLOOD CELLS (test code = 1514) 0-2 /HPF EPITHELIAL CELLS (test code = 54409) 0-5 /HPF BACTERIA (test code = 1515) NONE SEEN CRYSTALS (test code = 1516) PRESENT CASTS, HYALINE (test code = 1517) NONE SEEN Teodoro CantuALBUMIN/CREATININE RATIO, RANDOM [id number] 00:00:00* Test Item Value Reference Range Interpretation Comme nts CREATININE, URINE, CONC. (te st code = 2072) 90.5 MG/DL ALBUMIN, URINE, RANDOM (test code = 64138) 0.6 MG/DL CALC ALBUMIN/CREAT, RND (eden t code = 90372) 7 MG/G Teodoro CantuPSA, [id number] 00:00:00* Test Item Value Reference Range Interpretation Comme nts PSA, TOTAL (test code = 2606) 0.13 NG/ML Teodoro CantuCBC W/AUTO [id number] 00:00:00* Test Item Value Reference Range Interpretation Comme nts WBC (test code = 1001) 4.8 K/UL RBC (test code = 1002) 5.48 M/UL HEMOGLOBIN (test code = 1003) 14.2 G/DL HEMATOCRIT (test code = 1004) 43.8 % MCV (test code = 1005) 79.9 fL MCH (test code = 1006) 25.9 PG MCHC (test code = 1007) 32.4 G/DL RDW (test code = 1038) 15.8 % NEUTROPHILS (test code = 1008) 53.9 % LYMPHOCYTES (test code = 1010) 36.1 % MONOCYTES (test code = 1011) 7.5 % EOSINOPHILS (test code = 1012) 1.7 % BASOPHILS (test code = 1013) 0.4 % IMMATURE GRANULOCYTES (test code = 1036) 0.4 % NUCLEATED RBCS (test code = 1065) 0.0 /100WBC'S PLATELET COUNT (test code = 1015) 187 K/UL ABSOLUTE NEUTROPHILS (test c ode = 1066) 2.60 K/UL ABSOLUTE LYMPHOCYTES (test c ode = 1067) 1.74 K/UL ABSOLUTE MONOCYTES (test cod e = 1068) 0.36 K/UL ABSOLUTE EOSINOPHILS (test c ode = 1040) 0.08 K/UL ABSOLUTE BASOPHILS (test cod e = 1069) 0.02 K/UL ABS IMMATURE GRANULOCYTES (t est code = 1020) 0.02 K/UL ABS NUCLEATED RBCS (test cod e = 52473) 0.00 K/UL Teodoro CantuLIPID [id number] 00:00:00* Test Item Value Reference Range Interpretation Comme nts CHOLESTEROL (test code = 2210) 231 MG/DL TRIGLYCERIDES (test code = 2232) 321 MG/DL HDL CHOLESTEROL (test code = 2220) 33 MG/DL CALC LDL CHOL (test code = 2237) 149 MG/DL RISK RATIO LDL/HDL (test cod e = 2238) 4.52 RATIO Teodoro CantuHEMOGLOBIN [id number] 00:00:00* Test Item Value Reference Range Interpretation Comme nts HEMOGLOBIN A1c (test code = 97122) 11.6 % Teodoro CantuCOMPREHENSIVE METABOLIC [id number] 00:00:00* Test Item Value Reference Range Interpretation Comme nts GLUCOSE (test code = 2217) 262 MG/DL BUN (test code = 2208) 15 MG/DL CREATININE (test code = 2214) 0.63 MG/DL eGFR (2020 CKD-EPI) (test code = 56765) 114 ML/MIN/1.73 CALC BUN/CREAT (test code = 2235) 24 RATIO SODIUM (test code = 2231) 138 MEQ/L POTASSIUM (test code = 2228) 4.2 MEQ/L CHLORIDE (test code = 2215) 104 MEQ/L CARBON DIOXIDE (test code = 2206) 20 MEQ/L CALCIUM (test code = 2209) 9.6 MG/DL PROTEIN, TOTAL (test code = 2229) 7.3 G/DL ALBUMIN (test code = 2201) 4.6 G/DL CALC GLOBULIN (test code = 2240) 2.7 G/DL CALC A/G RATIO (test code = 2234) 1.7 RATIO BILIRUBIN, TOTAL (test code = 2207) 0.4 MG/DL ALKALINE PHOSPHATASE (test code = 2204) 163 U/L AST (test code = 2218) 15 U/L ALT (test code = 2219) 22 U/L Teodoro Dodge AustinURINALYSIS W/REFLEX [id number] 00:00:00* Test Item Value Reference Range Interpretation Comme nts COLOR (test code = 1501) YELLOW APPEARANCE (test code = 1502) CLOUDY SPECIFIC GRAVITY (test code = 1503) 1.041 LEUKOCYTE ESTERASE (test cod e = 1504) NEGATIVE NITRITE (test code = 1505) NEGATIVE pH (test code = 1506) 5.5 PROTEIN (test code = 1507) NEGATIVE GLUCOSE (test code = 1508) 3+ KETONES (test code = 1509) 1+ UROBILINOGEN (test code = 1510) 1.0 MG/DL BILIRUBIN (test code = 1511) NEGATIVE OCCULT BLOOD (test code = 1512) NEGATIVE WHITE BLOOD CELLS (test code = 1513) 0-5 /HPF RED BLOOD CELLS (test code = 1514) 0-2 /HPF EPITHELIAL CELLS (test code = 79498) 0-5 /HPF BACTERIA (test code = 1515) NONE SEEN CRYSTALS (test code = 1516) PRESENT CASTS, HYALINE (test code = 1517) NONE SEEN Teodoro CantuALBUMIN/CREATININE RATIO, RANDOM [id number] 00:00:00* Test Item Value Reference Range Interpretation Comme nts CREATININE, URINE, CONC. (te st code = 2072) 90.5 MG/DL ALBUMIN, URINE, RANDOM (test code = 00576) 0.6 MG/DL CALC ALBUMIN/CREAT, RND (eden t code = 57795) 7 MG/G Teodoro CantuPSA, [id number] 00:00:00* Test Item Value Reference Range Interpretation Comme nts PSA, TOTAL (test code = 2606) 0.13 NG/ML Teodoro CantuCBC W/AUTO [id number] 00:00:00* Test Item Value Reference Range Interpretation Comme nts WBC (test code = 1001) 4.8 K/UL RBC (test code = 1002) 5.48 M/UL HEMOGLOBIN (test code = 1003) 14.2 G/DL HEMATOCRIT (test code = 1004) 43.8 % MCV (test code = 1005) 79.9 fL MCH (test code = 1006) 25.9 PG MCHC (test code = 1007) 32.4 G/DL RDW (test code = 1038) 15.8 % NEUTROPHILS (test code = 1008) 53.9 % LYMPHOCYTES (test code = 1010) 36.1 % MONOCYTES (test code = 1011) 7.5 % EOSINOPHILS (test code = 1012) 1.7 % BASOPHILS (test code = 1013) 0.4 % IMMATURE GRANULOCYTES (test code = 1036) 0.4 % NUCLEATED RBCS (test code = 1065) 0.0 /100WBC'S PLATELET COUNT (test code = 1015) 187 K/UL ABSOLUTE NEUTROPHILS (test c ode = 1066) 2.60 K/UL ABSOLUTE LYMPHOCYTES (test c ode = 1067) 1.74 K/UL ABSOLUTE MONOCYTES (test cod e = 1068) 0.36 K/UL ABSOLUTE EOSINOPHILS (test c ode = 1040) 0.08 K/UL ABSOLUTE BASOPHILS (test cod e = 1069) 0.02 K/UL ABS IMMATURE GRANULOCYTES (t est code = 1020) 0.02 K/UL ABS NUCLEATED RBCS (test cod e = 98877) 0.00 K/UL Teodoro CantuLIPID [id number] 00:00:00* Test Item Value Reference Range Interpretation Comme nts CHOLESTEROL (test code = 2210) 231 MG/DL TRIGLYCERIDES (test code = 2232) 321 MG/DL HDL CHOLESTEROL (test code = 2220) 33 MG/DL CALC LDL CHOL (test code = 2237) 149 MG/DL RISK RATIO LDL/HDL (test cod e = 2238) 4.52 RATIO Teodoro CantuHEMOGLOBIN [id number] 00:00:00* Test Item Value Reference Range Interpretation Comme nts HEMOGLOBIN A1c (test code = 94213) 11.6 % Teodoro CantuCOMPREHENSIVE METABOLIC [id number] 00:00:00* Test Item Value Reference Range Interpretation Comme nts GLUCOSE (test code = 2217) 262 MG/DL BUN (test code = 2208) 15 MG/DL CREATININE (test code = 2214) 0.63 MG/DL eGFR (2020 CKD-EPI) (test code = 81449) 114 ML/MIN/1.73 CALC BUN/CREAT (test code = 2235) 24 RATIO SODIUM (test code = 2231) 138 MEQ/L POTASSIUM (test code = 2228) 4.2 MEQ/L CHLORIDE (test code = 2215) 104 MEQ/L CARBON DIOXIDE (test code = 2206) 20 MEQ/L CALCIUM (test code = 2209) 9.6 MG/DL PROTEIN, TOTAL (test code = 2229) 7.3 G/DL ALBUMIN (test code = 2201) 4.6 G/DL CALC GLOBULIN (test code = 2240) 2.7 G/DL CALC A/G RATIO (test code = 2234) 1.7 RATIO BILIRUBIN, TOTAL (test code = 2207) 0.4 MG/DL ALKALINE PHOSPHATASE (test code = 2204) 163 U/L AST (test code = 2218) 15 U/L ALT (test code = 2219) 22 U/L Teodoro CantuURINALYSIS W/REFLEX [id number] 00:00:00* Test Item Value Reference Range Interpretation Comme nts COLOR (test code = 1501) YELLOW APPEARANCE (test code = 1502) CLOUDY SPECIFIC GRAVITY (test code = 1503) 1.041 LEUKOCYTE ESTERASE (test cod e = 1504) NEGATIVE NITRITE (test code = 1505) NEGATIVE pH (test code = 1506) 5.5 PROTEIN (test code = 1507) NEGATIVE GLUCOSE (test code = 1508) 3+ KETONES (test code = 1509) 1+ UROBILINOGEN (test code = 1510) 1.0 MG/DL BILIRUBIN (test code = 1511) NEGATIVE OCCULT BLOOD (test code = 1512) NEGATIVE WHITE BLOOD CELLS (test code = 1513) 0-5 /HPF RED BLOOD CELLS (test code = 1514) 0-2 /HPF EPITHELIAL CELLS (test code = 76525) 0-5 /HPF BACTERIA (test code = 1515) NONE SEEN CRYSTALS (test code = 1516) PRESENT CASTS, HYALINE (test code = 1517) NONE SEEN Teodoro CantuALBUMIN/CREATININE RATIO, RANDOM [id number] 00:00:00* Test Item Value Reference Range Interpretation Comme nts CREATININE, URINE, CONC. (te st code = 2072) 90.5 MG/DL ALBUMIN, URINE, RANDOM (test code = 29219) 0.6 MG/DL CALC ALBUMIN/CREAT, RND (eden t code = 11125) 7 MG/G Teodoro CantuPSA, [id number] 00:00:00* Test Item Value Reference Range Interpretation Comme nts PSA, TOTAL (test code = 2606) 0.13 NG/ML Teodoro CantuCBC W/AUTO [id number] 00:00:00* Test Item Value Reference Range Interpretation Comme nts WBC (test code = 1001) 4.8 K/UL RBC (test code = 1002) 5.48 M/UL HEMOGLOBIN (test code = 1003) 14.2 G/DL HEMATOCRIT (test code = 1004) 43.8 % MCV (test code = 1005) 79.9 fL MCH (test code = 1006) 25.9 PG MCHC (test code = 1007) 32.4 G/DL RDW (test code = 1038) 15.8 % NEUTROPHILS (test code = 1008) 53.9 % LYMPHOCYTES (test code = 1010) 36.1 % MONOCYTES (test code = 1011) 7.5 % EOSINOPHILS (test code = 1012) 1.7 % BASOPHILS (test code = 1013) 0.4 % IMMATURE GRANULOCYTES (test code = 1036) 0.4 % NUCLEATED RBCS (test code = 1065) 0.0 /100WBC'S PLATELET COUNT (test code = 1015) 187 K/UL ABSOLUTE NEUTROPHILS (test c ode = 1066) 2.60 K/UL ABSOLUTE LYMPHOCYTES (test c ode = 1067) 1.74 K/UL ABSOLUTE MONOCYTES (test cod e = 1068) 0.36 K/UL ABSOLUTE EOSINOPHILS (test c ode = 1040) 0.08 K/UL ABSOLUTE BASOPHILS (test cod e = 1069) 0.02 K/UL ABS IMMATURE GRANULOCYTES (t est code = 1020) 0.02 K/UL ABS NUCLEATED RBCS (test cod e = 75508) 0.00 K/UL Teodoro CantuLIPID [id number] 00:00:00* Test Item Value Reference Range Interpretation Comme nts CHOLESTEROL (test code = 2210) 231 MG/DL TRIGLYCERIDES (test code = 2232) 321 MG/DL HDL CHOLESTEROL (test code = 2220) 33 MG/DL CALC LDL CHOL (test code = 2237) 149 MG/DL RISK RATIO LDL/HDL (test cod e = 2238) 4.52 RATIO Teodoro CantuHEMOGLOBIN [id number] 00:00:00* Test Item Value Reference Range Interpretation Comme nts HEMOGLOBIN A1c (test code = 02658) 11.6 % Teodoro CantuCOMPREHENSIVE METABOLIC [id number] 00:00:00* Test Item Value Reference Range Interpretation Comme nts GLUCOSE (test code = 2217) 262 MG/DL BUN (test code = 2208) 15 MG/DL CREATININE (test code = 2214) 0.63 MG/DL eGFR (2020 CKD-EPI) (test code = 55070) 114 ML/MIN/1.73 CALC BUN/CREAT (test code = 2235) 24 RATIO SODIUM (test code = 2231) 138 MEQ/L POTASSIUM (test code = 2228) 4.2 MEQ/L CHLORIDE (test code = 2215) 104 MEQ/L CARBON DIOXIDE (test code = 2206) 20 MEQ/L CALCIUM (test code = 2209) 9.6 MG/DL PROTEIN, TOTAL (test code = 2229) 7.3 G/DL ALBUMIN (test code = 2201) 4.6 G/DL CALC GLOBULIN (test code = 2240) 2.7 G/DL CALC A/G RATIO (test code = 2234) 1.7 RATIO BILIRUBIN, TOTAL (test code = 2207) 0.4 MG/DL ALKALINE PHOSPHATASE (test code = 2204) 163 U/L AST (test code = 2218) 15 U/L ALT (test code = 2219) 22 U/L Teodoro Dodge AustinURINALYSIS W/REFLEX [id number] 00:00:00* Test Item Value Reference Range Interpretation Comme nts COLOR (test code = 1501) YELLOW APPEARANCE (test code = 1502) CLOUDY SPECIFIC GRAVITY (test code = 1503) 1.041 LEUKOCYTE ESTERASE (test cod e = 1504) NEGATIVE NITRITE (test code = 1505) NEGATIVE pH (test code = 1506) 5.5 PROTEIN (test code = 1507) NEGATIVE GLUCOSE (test code = 1508) 3+ KETONES (test code = 1509) 1+ UROBILINOGEN (test code = 1510) 1.0 MG/DL BILIRUBIN (test code = 1511) NEGATIVE OCCULT BLOOD (test code = 1512) NEGATIVE WHITE BLOOD CELLS (test code = 1513) 0-5 /HPF RED BLOOD CELLS (test code = 1514) 0-2 /HPF EPITHELIAL CELLS (test code = 39915) 0-5 /HPF BACTERIA (test code = 1515) NONE SEEN CRYSTALS (test code = 1516) PRESENT CASTS, HYALINE (test code = 1517) NONE SEEN Teodoro Dodge AustinALBUMIN/CREATININE RATIO, RANDOM [id number] 00:00:00* Test Item Value Reference Range Interpretation Comme nts CREATININE, URINE, CONC. (te st code = 2072) 90.5 MG/DL ALBUMIN, URINE, RANDOM (test code = 34251) 0.6 MG/DL CALC ALBUMIN/CREAT, RND (eden t code = 85599) 7 MG/G Teodoro CantuPSA, [id number] 00:00:00* Test Item Value Reference Range Interpretation Comme nts PSA, TOTAL (test code = 2606) 0.13 NG/ML Teodoro CantuCBC W/AUTO [id number] 00:00:00* Test Item Value Reference Range Interpretation Comme nts WBC (test code = 1001) 4.8 K/UL RBC (test code = 1002) 5.48 M/UL HEMOGLOBIN (test code = 1003) 14.2 G/DL HEMATOCRIT (test code = 1004) 43.8 % MCV (test code = 1005) 79.9 fL MCH (test code = 1006) 25.9 PG MCHC (test code = 1007) 32.4 G/DL RDW (test code = 1038) 15.8 % NEUTROPHILS (test code = 1008) 53.9 % LYMPHOCYTES (test code = 1010) 36.1 % MONOCYTES (test code = 1011) 7.5 % EOSINOPHILS (test code = 1012) 1.7 % BASOPHILS (test code = 1013) 0.4 % IMMATURE GRANULOCYTES (test code = 1036) 0.4 % NUCLEATED RBCS (test code = 1065) 0.0 /100WBC'S PLATELET COUNT (test code = 1015) 187 K/UL ABSOLUTE NEUTROPHILS (test c ode = 1066) 2.60 K/UL ABSOLUTE LYMPHOCYTES (test c ode = 1067) 1.74 K/UL ABSOLUTE MONOCYTES (test cod e = 1068) 0.36 K/UL ABSOLUTE EOSINOPHILS (test c ode = 1040) 0.08 K/UL ABSOLUTE BASOPHILS (test cod e = 1069) 0.02 K/UL ABS IMMATURE GRANULOCYTES (t est code = 1020) 0.02 K/UL ABS NUCLEATED RBCS (test cod e = 18875) 0.00 K/UL Teodoro CantuLIPID [id number] 00:00:00* Test Item Value Reference Range Interpretation Comme nts CHOLESTEROL (test code = 2210) 231 MG/DL TRIGLYCERIDES (test code = 2232) 321 MG/DL HDL CHOLESTEROL (test code = 2220) 33 MG/DL CALC LDL CHOL (test code = 2237) 149 MG/DL RISK RATIO LDL/HDL (test cod e = 2238) 4.52 RATIO Teodoro CantuHEMOGLOBIN [id number] 00:00:00* Test Item Value Reference Range Interpretation Comme nts HEMOGLOBIN A1c (test code = 48337) 11.6 % Teodoro Dodge PepeCOMPREHENSIVE METABOLIC [id number] 00:00:00* Test Item Value Reference Range Interpretation Comme nts GLUCOSE (test code = 2217) 262 MG/DL BUN (test code = 2208) 15 MG/DL CREATININE (test code = 2214) 0.63 MG/DL eGFR (2020 CKD-EPI) (test code = 13445) 114 ML/MIN/1.73 CALC BUN/CREAT (test code = 2235) 24 RATIO SODIUM (test code = 2231) 138 MEQ/L POTASSIUM (test code = 2228) 4.2 MEQ/L CHLORIDE (test code = 2215) 104 MEQ/L CARBON DIOXIDE (test code = 2206) 20 MEQ/L CALCIUM (test code = 2209) 9.6 MG/DL PROTEIN, TOTAL (test code = 2229) 7.3 G/DL ALBUMIN (test code = 2201) 4.6 G/DL CALC GLOBULIN (test code = 2240) 2.7 G/DL CALC A/G RATIO (test code = 2234) 1.7 RATIO BILIRUBIN, TOTAL (test code = 2207) 0.4 MG/DL ALKALINE PHOSPHATASE (test code = 2204) 163 U/L AST (test code = 2218) 15 U/L ALT (test code = 2219) 22 U/L Teodoro CantuURINALYSIS W/REFLEX [id number] 00:00:00* Test Item Value Reference Range Interpretation Comme nts COLOR (test code = 1501) YELLOW APPEARANCE (test code = 1502) CLOUDY SPECIFIC GRAVITY (test code = 1503) 1.041 LEUKOCYTE ESTERASE (test cod e = 1504) NEGATIVE NITRITE (test code = 1505) NEGATIVE pH (test code = 1506) 5.5 PROTEIN (test code = 1507) NEGATIVE GLUCOSE (test code = 1508) 3+ KETONES (test code = 1509) 1+ UROBILINOGEN (test code = 1510) 1.0 MG/DL BILIRUBIN (test code = 1511) NEGATIVE OCCULT BLOOD (test code = 1512) NEGATIVE WHITE BLOOD CELLS (test code = 1513) 0-5 /HPF RED BLOOD CELLS (test code = 1514) 0-2 /HPF EPITHELIAL CELLS (test code = 41855) 0-5 /HPF BACTERIA (test code = 1515) NONE SEEN CRYSTALS (test code = 1516) PRESENT CASTS, HYALINE (test code = 1517) NONE SEEN Teodoro CantuALBUMIN/CREATININE RATIO, RANDOM [id number] 00:00:00* Test Item Value Reference Range Interpretation Comme nts CREATININE, URINE, CONC. (te st code = 2072) 90.5 MG/DL ALBUMIN, URINE, RANDOM (test code = 96172) 0.6 MG/DL CALC ALBUMIN/CREAT, RND (eden t code = 37367) 7 MG/G Teodoro CantuPSA, [id number] 00:00:00* Test Item Value Reference Range Interpretation Comme nts PSA, TOTAL (test code = 2606) 0.13 NG/ML Teodoro CantuCBC W/AUTO [id number] 00:00:00* Test Item Value Reference Range Interpretation Comme nts WBC (test code = 1001) 4.8 K/UL RBC (test code = 1002) 5.48 M/UL HEMOGLOBIN (test code = 1003) 14.2 G/DL HEMATOCRIT (test code = 1004) 43.8 % MCV (test code = 1005) 79.9 fL MCH (test code = 1006) 25.9 PG MCHC (test code = 1007) 32.4 G/DL RDW (test code = 1038) 15.8 % NEUTROPHILS (test code = 1008) 53.9 % LYMPHOCYTES (test code = 1010) 36.1 % MONOCYTES (test code = 1011) 7.5 % EOSINOPHILS (test code = 1012) 1.7 % BASOPHILS (test code = 1013) 0.4 % IMMATURE GRANULOCYTES (test code = 1036) 0.4 % NUCLEATED RBCS (test code = 1065) 0.0 /100WBC'S PLATELET COUNT (test code = 1015) 187 K/UL ABSOLUTE NEUTROPHILS (test c ode = 1066) 2.60 K/UL ABSOLUTE LYMPHOCYTES (test c ode = 1067) 1.74 K/UL ABSOLUTE MONOCYTES (test cod e = 1068) 0.36 K/UL ABSOLUTE EOSINOPHILS (test c ode = 1040) 0.08 K/UL ABSOLUTE BASOPHILS (test cod e = 1069) 0.02 K/UL ABS IMMATURE GRANULOCYTES (t est code = 1020) 0.02 K/UL ABS NUCLEATED RBCS (test cod e = 70244) 0.00 K/UL Teodoro CantuLIPID [id number] 00:00:00* Test Item Value Reference Range Interpretation Comme nts CHOLESTEROL (test code = 2210) 231 MG/DL TRIGLYCERIDES (test code = 2232) 321 MG/DL HDL CHOLESTEROL (test code = 2220) 33 MG/DL CALC LDL CHOL (test code = 2237) 149 MG/DL RISK RATIO LDL/HDL (test cod e = 2238) 4.52 RATIO Teodoro CantuHEMOGLOBIN [id number] 00:00:00* Test Item Value Reference Range Interpretation Comme bria HEMOGLOBIN A1c (test code = 16520) 11.6 % Teodoro CantuCOMPREHENSIVE METABOLIC [id number] 00:00:00* Test Item Value Reference Range Interpretation Comme nts GLUCOSE (test code = 2217) 262 MG/DL BUN (test code = 2208) 15 MG/DL CREATININE (test code = 2214) 0.63 MG/DL eGFR (2020 CKD-EPI) (test code = 70558) 114 ML/MIN/1.73 CALC BUN/CREAT (test code = 2235) 24 RATIO SODIUM (test code = 2231) 138 MEQ/L POTASSIUM (test code = 2228) 4.2 MEQ/L CHLORIDE (test code = 2215) 104 MEQ/L CARBON DIOXIDE (test code = 2206) 20 MEQ/L CALCIUM (test code = 2209) 9.6 MG/DL PROTEIN, TOTAL (test code = 2229) 7.3 G/DL ALBUMIN (test code = 2201) 4.6 G/DL CALC GLOBULIN (test code = 2240) 2.7 G/DL CALC A/G RATIO (test code = 2234) 1.7 RATIO BILIRUBIN, TOTAL (test code = 2207) 0.4 MG/DL ALKALINE PHOSPHATASE (test code = 2204) 163 U/L AST (test code = 2218) 15 U/L ALT (test code = 2219) 22 U/L Teodoro Dogde AustinURINALYSIS W/REFLEX [id number] 00:00:00* Test Item Value Reference Range Interpretation Comme nts COLOR (test code = 1501) YELLOW APPEARANCE (test code = 1502) CLOUDY SPECIFIC GRAVITY (test code = 1503) 1.041 LEUKOCYTE ESTERASE (test cod e = 1504) NEGATIVE NITRITE (test code = 1505) NEGATIVE pH (test code = 1506) 5.5 PROTEIN (test code = 1507) NEGATIVE GLUCOSE (test code = 1508) 3+ KETONES (test code = 1509) 1+ UROBILINOGEN (test code = 1510) 1.0 MG/DL BILIRUBIN (test code = 1511) NEGATIVE OCCULT BLOOD (test code = 1512) NEGATIVE WHITE BLOOD CELLS (test code = 1513) 0-5 /HPF RED BLOOD CELLS (test code = 1514) 0-2 /HPF EPITHELIAL CELLS (test code = 29709) 0-5 /HPF BACTERIA (test code = 1515) NONE SEEN CRYSTALS (test code = 1516) PRESENT CASTS, HYALINE (test code = 1517) NONE SEEN Teodoro CantuALBUMIN/CREATININE RATIO, RANDOM [id number] 00:00:00* Test Item Value Reference Range Interpretation Comme nts CREATININE, URINE, CONC. (te st code = 2072) 90.5 MG/DL ALBUMIN, URINE, RANDOM (test code = 74926) 0.6 MG/DL CALC ALBUMIN/CREAT, RND (eden t code = 40617) 7 MG/G Teodoro CantuPSA, [id number] 00:00:00* Test Item Value Reference Range Interpretation Comme nts PSA, TOTAL (test code = 2606) 0.13 NG/ML Teodoro CantuCBC W/AUTO [id number] 00:00:00* Test Item Value Reference Range Interpretation Comme nts WBC (test code = 1001) 4.8 K/UL RBC (test code = 1002) 5.48 M/UL HEMOGLOBIN (test code = 1003) 14.2 G/DL HEMATOCRIT (test code = 1004) 43.8 % MCV (test code = 1005) 79.9 fL MCH (test code = 1006) 25.9 PG MCHC (test code = 1007) 32.4 G/DL RDW (test code = 1038) 15.8 % NEUTROPHILS (test code = 1008) 53.9 % LYMPHOCYTES (test code = 1010) 36.1 % MONOCYTES (test code = 1011) 7.5 % EOSINOPHILS (test code = 1012) 1.7 % BASOPHILS (test code = 1013) 0.4 % IMMATURE GRANULOCYTES (test code = 1036) 0.4 % NUCLEATED RBCS (test code = 1065) 0.0 /100WBC'S PLATELET COUNT (test code = 1015) 187 K/UL ABSOLUTE NEUTROPHILS (test c ode = 1066) 2.60 K/UL ABSOLUTE LYMPHOCYTES (test c ode = 1067) 1.74 K/UL ABSOLUTE MONOCYTES (test cod e = 1068) 0.36 K/UL ABSOLUTE EOSINOPHILS (test c ode = 1040) 0.08 K/UL ABSOLUTE BASOPHILS (test cod e = 1069) 0.02 K/UL ABS IMMATURE GRANULOCYTES (t est code = 1020) 0.02 K/UL ABS NUCLEATED RBCS (test cod e = 23238) 0.00 K/UL Teodoro CantuLIPID [id number] 00:00:00* Test Item Value Reference Range Interpretation Comme nts CHOLESTEROL (test code = 2210) 231 MG/DL TRIGLYCERIDES (test code = 2232) 321 MG/DL HDL CHOLESTEROL (test code = 2220) 33 MG/DL CALC LDL CHOL (test code = 2237) 149 MG/DL RISK RATIO LDL/HDL (test cod e = 2238) 4.52 RATIO Teodoro CantuHEMOGLOBIN [id number] 00:00:00* Test Item Value Reference Range Interpretation Comme nts HEMOGLOBIN A1c (test code = 56374) 11.6 % Teodoro CantuCOMPREHENSIVE METABOLIC [id number] 00:00:00* Test Item Value Reference Range Interpretation Comme nts GLUCOSE (test code = 2217) 262 MG/DL BUN (test code = 2208) 15 MG/DL CREATININE (test code = 2214) 0.63 MG/DL eGFR (2020 CKD-EPI) (test code = 75898) 114 ML/MIN/1.73 CALC BUN/CREAT (test code = 2235) 24 RATIO SODIUM (test code = 2231) 138 MEQ/L POTASSIUM (test code = 2228) 4.2 MEQ/L CHLORIDE (test code = 2215) 104 MEQ/L CARBON DIOXIDE (test code = 2206) 20 MEQ/L CALCIUM (test code = 2209) 9.6 MG/DL PROTEIN, TOTAL (test code = 2229) 7.3 G/DL ALBUMIN (test code = 2201) 4.6 G/DL CALC GLOBULIN (test code = 2240) 2.7 G/DL CALC A/G RATIO (test code = 2234) 1.7 RATIO BILIRUBIN, TOTAL (test code = 2207) 0.4 MG/DL ALKALINE PHOSPHATASE (test code = 2204) 163 U/L AST (test code = 2218) 15 U/L ALT (test code = 2219) 22 U/L Teodoro CantuURINALYSIS W/REFLEX [id number] 00:00:00* Test Item Value Reference Range Interpretation Comme nts COLOR (test code = 1501) YELLOW APPEARANCE (test code = 1502) CLOUDY SPECIFIC GRAVITY (test code = 1503) 1.041 LEUKOCYTE ESTERASE (test cod e = 1504) NEGATIVE NITRITE (test code = 1505) NEGATIVE pH (test code = 1506) 5.5 PROTEIN (test code = 1507) NEGATIVE GLUCOSE (test code = 1508) 3+ KETONES (test code = 1509) 1+ UROBILINOGEN (test code = 1510) 1.0 MG/DL BILIRUBIN (test code = 1511) NEGATIVE OCCULT BLOOD (test code = 1512) NEGATIVE WHITE BLOOD CELLS (test code = 1513) 0-5 /HPF RED BLOOD CELLS (test code = 1514) 0-2 /HPF EPITHELIAL CELLS (test code = 77231) 0-5 /HPF BACTERIA (test code = 1515) NONE SEEN CRYSTALS (test code = 1516) PRESENT CASTS, HYALINE (test code = 1517) NONE SEEN Teodoro CantuALBUMIN/CREATININE RATIO, RANDOM [id number] 00:00:00* Test Item Value Reference Range Interpretation Comme nts CREATININE, URINE, CONC. (te st code = 2072) 90.5 MG/DL ALBUMIN, URINE, RANDOM (test code = 10434) 0.6 MG/DL CALC ALBUMIN/CREAT, RND (eden t code = 13230) 7 MG/G Teodoro CantuPSA, [id number] 00:00:00* Test Item Value Reference Range Interpretation Comme nts PSA, TOTAL (test code = 2606) 0.13 NG/ML Teodoro CantuCBC W/AUTO [id number] 00:00:00* Test Item Value Reference Range Interpretation Comme nts WBC (test code = 1001) 4.8 K/UL RBC (test code = 1002) 5.48 M/UL HEMOGLOBIN (test code = 1003) 14.2 G/DL HEMATOCRIT (test code = 1004) 43.8 % MCV (test code = 1005) 79.9 fL MCH (test code = 1006) 25.9 PG MCHC (test code = 1007) 32.4 G/DL RDW (test code = 1038) 15.8 % NEUTROPHILS (test code = 1008) 53.9 % LYMPHOCYTES (test code = 1010) 36.1 % MONOCYTES (test code = 1011) 7.5 % EOSINOPHILS (test code = 1012) 1.7 % BASOPHILS (test code = 1013) 0.4 % IMMATURE GRANULOCYTES (test code = 1036) 0.4 % NUCLEATED RBCS (test code = 1065) 0.0 /100WBC'S PLATELET COUNT (test code = 1015) 187 K/UL ABSOLUTE NEUTROPHILS (test c ode = 1066) 2.60 K/UL ABSOLUTE LYMPHOCYTES (test c ode = 1067) 1.74 K/UL ABSOLUTE MONOCYTES (test cod e = 1068) 0.36 K/UL ABSOLUTE EOSINOPHILS (test c ode = 1040) 0.08 K/UL ABSOLUTE BASOPHILS (test cod e = 1069) 0.02 K/UL ABS IMMATURE GRANULOCYTES (t est code = 1020) 0.02 K/UL ABS NUCLEATED RBCS (test cod e = 61790) 0.00 K/UL Teodoro CantuLIPID [id number] 00:00:00* Test Item Value Reference Range Interpretation Comme nts CHOLESTEROL (test code = 2210) 231 MG/DL TRIGLYCERIDES (test code = 2232) 321 MG/DL HDL CHOLESTEROL (test code = 2220) 33 MG/DL CALC LDL CHOL (test code = 2237) 149 MG/DL RISK RATIO LDL/HDL (test cod e = 2238) 4.52 RATIO Teodoro CantuHEMOGLOBIN [id number] 00:00:00* Test Item Value Reference Range Interpretation Comme nts HEMOGLOBIN A1c (test code = 32276) 11.6 % Teodoro CantuCOMPREHENSIVE METABOLIC [id number] 00:00:00* Test Item Value Reference Range Interpretation Comme nts GLUCOSE (test code = 2217) 262 MG/DL BUN (test code = 2208) 15 MG/DL CREATININE (test code = 2214) 0.63 MG/DL eGFR (2020 CKD-EPI) (test code = 67486) 114 ML/MIN/1.73 CALC BUN/CREAT (test code = 2235) 24 RATIO SODIUM (test code = 2231) 138 MEQ/L POTASSIUM (test code = 2228) 4.2 MEQ/L CHLORIDE (test code = 2215) 104 MEQ/L CARBON DIOXIDE (test code = 2206) 20 MEQ/L CALCIUM (test code = 2209) 9.6 MG/DL PROTEIN, TOTAL (test code = 2229) 7.3 G/DL ALBUMIN (test code = 2201) 4.6 G/DL CALC GLOBULIN (test code = 2240) 2.7 G/DL CALC A/G RATIO (test code = 2234) 1.7 RATIO BILIRUBIN, TOTAL (test code = 2207) 0.4 MG/DL ALKALINE PHOSPHATASE (test code = 2204) 163 U/L AST (test code = 2218) 15 U/L ALT (test code = 2219) 22 U/L Teodoro Echo PepeURINALYSIS W/REFLEX [id number] 00:00:00* Test Item Value Reference Range Interpretation Comme nts COLOR (test code = 1501) YELLOW APPEARANCE (test code = 1502) CLOUDY SPECIFIC GRAVITY (test code = 1503) 1.041 LEUKOCYTE ESTERASE (test cod e = 1504) NEGATIVE NITRITE (test code = 1505) NEGATIVE pH (test code = 1506) 5.5 PROTEIN (test code = 1507) NEGATIVE GLUCOSE (test code = 1508) 3+ KETONES (test code = 1509) 1+ UROBILINOGEN (test code = 1510) 1.0 MG/DL BILIRUBIN (test code = 1511) NEGATIVE OCCULT BLOOD (test code = 1512) NEGATIVE WHITE BLOOD CELLS (test code = 1513) 0-5 /HPF RED BLOOD CELLS (test code = 1514) 0-2 /HPF EPITHELIAL CELLS (test code = 97425) 0-5 /HPF BACTERIA (test code = 1515) NONE SEEN CRYSTALS (test code = 1516) PRESENT CASTS, HYALINE (test code = 1517) NONE SEEN Teodoro F PepeALBUMIN/CREATININE RATIO, RANDOM [id number] 00:00:00* Test Item Value Reference Range Interpretation Comme nts CREATININE, URINE, CONC. (te st code = 2072) 90.5 MG/DL ALBUMIN, URINE, RANDOM (test code = 95277) 0.6 MG/DL CALC ALBUMIN/CREAT, RND (eden t code = 87418) 7 MG/G Teodoro CantuPSA, [id number] 00:00:00* Test Item Value Reference Range Interpretation Comme nts PSA, TOTAL (test code = 2606) 0.13 NG/ML Teodoro CantuCBC W/AUTO [id number] 00:00:00* Test Item Value Reference Range Interpretation Comme nts WBC (test code = 1001) 4.8 K/UL RBC (test code = 1002) 5.48 M/UL HEMOGLOBIN (test code = 1003) 14.2 G/DL HEMATOCRIT (test code = 1004) 43.8 % MCV (test code = 1005) 79.9 fL MCH (test code = 1006) 25.9 PG MCHC (test code = 1007) 32.4 G/DL RDW (test code = 1038) 15.8 % NEUTROPHILS (test code = 1008) 53.9 % LYMPHOCYTES (test code = 1010) 36.1 % MONOCYTES (test code = 1011) 7.5 % EOSINOPHILS (test code = 1012) 1.7 % BASOPHILS (test code = 1013) 0.4 % IMMATURE GRANULOCYTES (test code = 1036) 0.4 % NUCLEATED RBCS (test code = 1065) 0.0 /100WBC'S PLATELET COUNT (test code = 1015) 187 K/UL ABSOLUTE NEUTROPHILS (test c ode = 1066) 2.60 K/UL ABSOLUTE LYMPHOCYTES (test c ode = 1067) 1.74 K/UL ABSOLUTE MONOCYTES (test cod e = 1068) 0.36 K/UL ABSOLUTE EOSINOPHILS (test c ode = 1040) 0.08 K/UL ABSOLUTE BASOPHILS (test cod e = 1069) 0.02 K/UL ABS IMMATURE GRANULOCYTES (t est code = 1020) 0.02 K/UL ABS NUCLEATED RBCS (test cod e = 79241) 0.00 K/UL Teodoro CantuLIPID [id number] 00:00:00* Test Item Value Reference Range Interpretation Comme nts CHOLESTEROL (test code = 2210) 231 MG/DL TRIGLYCERIDES (test code = 2232) 321 MG/DL HDL CHOLESTEROL (test code = 2220) 33 MG/DL CALC LDL CHOL (test code = 2237) 149 MG/DL RISK RATIO LDL/HDL (test cod e = 2238) 4.52 RATIO Teodoro CantuHEMOGLOBIN [id number] 00:00:00* Test Item Value Reference Range Interpretation Comme bria HEMOGLOBIN A1c (test code = 43390) 11.6 % Teodoro CantuCOMPREHENSIVE METABOLIC [id number] 00:00:00* Test Item Value Reference Range Interpretation Comme nts GLUCOSE (test code = 2217) 262 MG/DL BUN (test code = 2208) 15 MG/DL CREATININE (test code = 2214) 0.63 MG/DL eGFR (2020 CKD-EPI) (test code = 57900) 114 ML/MIN/1.73 CALC BUN/CREAT (test code = 2235) 24 RATIO SODIUM (test code = 2231) 138 MEQ/L POTASSIUM (test code = 2228) 4.2 MEQ/L CHLORIDE (test code = 2215) 104 MEQ/L CARBON DIOXIDE (test code = 2206) 20 MEQ/L CALCIUM (test code = 2209) 9.6 MG/DL PROTEIN, TOTAL (test code = 2229) 7.3 G/DL ALBUMIN (test code = 2201) 4.6 G/DL CALC GLOBULIN (test code = 2240) 2.7 G/DL CALC A/G RATIO (test code = 2234) 1.7 RATIO BILIRUBIN, TOTAL (test code = 2207) 0.4 MG/DL ALKALINE PHOSPHATASE (test code = 2204) 163 U/L AST (test code = 2218) 15 U/L ALT (test code = 2219) 22 U/L Teodoro Dodge AustinHEMOGLOBIN [id number] 00:00:00* Test Item Value Reference Range Interpretation Comme bria HEMOGLOBIN A1c (test code = 88317) 10.4 % Teodoro Dodge AustinALBUMIN/CREATININE RATIO, RANDOM [id number] 00:00:00* Test Item Value Reference Range Interpretation Comme nts CREATININE, URINE, CONC. (te st code = 2072) 31.1 MG/DL ALBUMIN, URINE, RANDOM (test code = 64793) <0.2 MG/DL CALC ALBUMIN/CREAT, RND (eden t code = 04863) <6 MG/G Teodoro Dodge AustinPSA, [id number] 00:00:00* Test Item Value Reference Range Interpretation Comme nts PSA, TOTAL (test code = 2606) 0.12 NG/ML Teodoro Dodge BartleyCOMPREHENSIVE METABOLIC [id number] 00:00:00* Test Item Value Reference Range Interpretation Comme nts GLUCOSE (test code = 2217) 252 MG/DL BUN (test code = 2208) 9 MG/DL CREATININE (test code = 2214) 0.50 MG/DL eGFR (2020 CKD-EPI) (test code = 00154) 123 ML/MIN/1.73 CALC BUN/CREAT (test code = 2235) 18 RATIO SODIUM (test code = 2231) 139 MEQ/L POTASSIUM (test code = 2228) 4.0 MEQ/L CHLORIDE (test code = 2215) 101 MEQ/L CARBON DIOXIDE (test code = 2206) 16 MEQ/L CALCIUM (test code = 2209) 9.2 MG/DL PROTEIN, TOTAL (test code = 2229) 6.7 G/DL ALBUMIN (test code = 2201) 4.7 G/DL CALC GLOBULIN (test code = 2240) 2.0 G/DL CALC A/G RATIO (test code = 2234) 2.4 RATIO BILIRUBIN, TOTAL (test code = 2207) 0.4 MG/DL ALKALINE PHOSPHATASE (test code = 2204) 157 U/L AST (test code = 2218) 14 U/L ALT (test code = 2219) 23 U/L Teodoro CantuELLIS FISCHEL CANCER CENTERPREHENSIVE METABOLIC [id number] 00:00:00* Test Item Value Reference Range Interpretation Comme nts GLUCOSE (test code = 2217) 252 MG/DL BUN (test code = 2208) 9 MG/DL CREATININE (test code = 2214) 0.50 MG/DL eGFR (2020 CKD-EPI) (test code = 60199) 123 ML/MIN/1.73 CALC BUN/CREAT (test code = 2235) 18 RATIO SODIUM (test code = 2231) 139 MEQ/L POTASSIUM (test code = 2228) 4.0 MEQ/L CHLORIDE (test code = 2215) 101 MEQ/L CARBON DIOXIDE (test code = 2206) 16 MEQ/L CALCIUM (test code = 2209) 9.2 MG/DL PROTEIN, TOTAL (test code = 2229) 6.7 G/DL ALBUMIN (test code = 2201) 4.7 G/DL CALC GLOBULIN (test code = 2240) 2.0 G/DL CALC A/G RATIO (test code = 2234) 2.4 RATIO BILIRUBIN, TOTAL (test code = 2207) 0.4 MG/DL ALKALINE PHOSPHATASE (test code = 2204) 157 U/L AST (test code = 2218) 14 U/L ALT (test code = 2219) 23 U/L Teodoro CantuLIPID [id number] 00:00:00* Test Item Value Reference Range Interpretation Comme nts CHOLESTEROL (test code = 2210) 138 MG/DL TRIGLYCERIDES (test code = 2232) 348 MG/DL HDL CHOLESTEROL (test code = 2220) 32 MG/DL CALC LDL CHOL (test code = 2237) 64 MG/DL RISK RATIO LDL/HDL (test cod e = 2238) 2.00 RATIO Teodoro Dodge AustinURINALYSIS W/REFLEX [id number] 00:00:00* Test Item Value Reference Range Interpretation Comme nts COLOR (test code = 1501) YELLOW APPEARANCE (test code = 1502) CLEAR SPECIFIC GRAVITY (test code = 1503) 1.012 LEUKOCYTE ESTERASE (test cod e = 1504) NEGATIVE NITRITE (test code = 1505) NEGATIVE pH (test code = 1506) 5.5 PROTEIN (test code = 1507) NEGATIVE GLUCOSE (test code = 1508) 3+ KETONES (test code = 1509) TRACE UROBILINOGEN (test code = 1510) 0.2 MG/DL BILIRUBIN (test code = 1511) NEGATIVE OCCULT BLOOD (test code = 1512) NEGATIVE Teodoro CantuCBC W/AUTO [id number] 00:00:00* Test Item Value Reference Range Interpretation Comme nts WBC (test code = 1001) 5.2 K/UL RBC (test code = 1002) 5.22 M/UL HEMOGLOBIN (test code = 1003) 14.0 G/DL HEMATOCRIT (test code = 1004) 42.0 % MCV (test code = 1005) 80.5 fL MCH (test code = 1006) 26.8 PG MCHC (test code = 1007) 33.3 G/DL RDW (test code = 1038) 15.0 % NEUTROPHILS (test code = 1008) 61.0 % LYMPHOCYTES (test code = 1010) 28.8 % MONOCYTES (test code = 1011) 7.3 % EOSINOPHILS (test code = 1012) 1.9 % BASOPHILS (test code = 1013) 0.6 % IMMATURE GRANULOCYTES (test code = 1036) 0.4 % NUCLEATED RBCS (test code = 1065) 0.0 /100WBC'S PLATELET COUNT (test code = 1015) 184 K/UL ABSOLUTE NEUTROPHILS (test c ode = 1066) 3.16 K/UL ABSOLUTE LYMPHOCYTES (test c ode = 1067) 1.49 K/UL ABSOLUTE MONOCYTES (test cod e = 1068) 0.38 K/UL ABSOLUTE EOSINOPHILS (test c ode = 1040) 0.10 K/UL ABSOLUTE BASOPHILS (test cod e = 1069) 0.03 K/UL ABS IMMATURE GRANULOCYTES (t est code = 1020) 0.02 K/UL ABS NUCLEATED RBCS (test cod e = 39901) 0.00 K/UL Teodoro CantuHEMOGLOBIN [id number] 00:00:00* Test Item Value Reference Range Interpretation Comme nts HEMOGLOBIN A1c (test code = 10380) 10.4 % Teodoro Dodge AustinALBUMIN/CREATININE RATIO, RANDOM [id number] 00:00:00* Test Item Value Reference Range Interpretation Comme nts CREATININE, URINE, CONC. (te st code = 2072) 31.1 MG/DL ALBUMIN, URINE, RANDOM (test code = 06848) <0.2 MG/DL CALC ALBUMIN/CREAT, RND (eden t code = 21985) <6 MG/G Teodoro CantuPSA, [id number] 00:00:00* Test Item Value Reference Range Interpretation Comme nts PSA, TOTAL (test code = 2606) 0.12 NG/ML Teodoro CantuCOMPREHENSIVE METABOLIC [id number] 00:00:00* Test Item Value Reference Range Interpretation Comme nts GLUCOSE (test code = 2217) 252 MG/DL BUN (test code = 2208) 9 MG/DL CREATININE (test code = 2214) 0.50 MG/DL eGFR (2020 CKD-EPI) (test code = 59701) 123 ML/MIN/1.73 CALC BUN/CREAT (test code = 2235) 18 RATIO SODIUM (test code = 2231) 139 MEQ/L POTASSIUM (test code = 2228) 4.0 MEQ/L CHLORIDE (test code = 2215) 101 MEQ/L CARBON DIOXIDE (test code = 2206) 16 MEQ/L CALCIUM (test code = 2209) 9.2 MG/DL PROTEIN, TOTAL (test code = 2229) 6.7 G/DL ALBUMIN (test code = 2201) 4.7 G/DL CALC GLOBULIN (test code = 2240) 2.0 G/DL CALC A/G RATIO (test code = 2234) 2.4 RATIO BILIRUBIN, TOTAL (test code = 2207) 0.4 MG/DL ALKALINE PHOSPHATASE (test code = 2204) 157 U/L AST (test code = 2218) 14 U/L ALT (test code = 2219) 23 U/L Teodoro Dodge PepeLIPID [id number] 00:00:00* Test Item Value Reference Range Interpretation Comme nts CHOLESTEROL (test code = 2210) 138 MG/DL TRIGLYCERIDES (test code = 2232) 348 MG/DL HDL CHOLESTEROL (test code = 2220) 32 MG/DL CALC LDL CHOL (test code = 2237) 64 MG/DL RISK RATIO LDL/HDL (test cod e = 2238) 2.00 RATIO Teodoro Dodge AustinURINALYSIS W/REFLEX [id number] 00:00:00* Test Item Value Reference Range Interpretation Comme nts COLOR (test code = 1501) YELLOW APPEARANCE (test code = 1502) CLEAR SPECIFIC GRAVITY (test code = 1503) 1.012 LEUKOCYTE ESTERASE (test cod e = 1504) NEGATIVE NITRITE (test code = 1505) NEGATIVE pH (test code = 1506) 5.5 PROTEIN (test code = 1507) NEGATIVE GLUCOSE (test code = 1508) 3+ KETONES (test code = 1509) TRACE UROBILINOGEN (test code = 1510) 0.2 MG/DL BILIRUBIN (test code = 1511) NEGATIVE OCCULT BLOOD (test code = 1512) NEGATIVE Teodoro Dodge PepeCBC W/AUTO [id number] 00:00:00* Test Item Value Reference Range Interpretation Comme nts WBC (test code = 1001) 5.2 K/UL RBC (test code = 1002) 5.22 M/UL HEMOGLOBIN (test code = 1003) 14.0 G/DL HEMATOCRIT (test code = 1004) 42.0 % MCV (test code = 1005) 80.5 fL MCH (test code = 1006) 26.8 PG MCHC (test code = 1007) 33.3 G/DL RDW (test code = 1038) 15.0 % NEUTROPHILS (test code = 1008) 61.0 % LYMPHOCYTES (test code = 1010) 28.8 % MONOCYTES (test code = 1011) 7.3 % EOSINOPHILS (test code = 1012) 1.9 % BASOPHILS (test code = 1013) 0.6 % IMMATURE GRANULOCYTES (test code = 1036) 0.4 % NUCLEATED RBCS (test code = 1065) 0.0 /100WBC'S PLATELET COUNT (test code = 1015) 184 K/UL ABSOLUTE NEUTROPHILS (test c ode = 1066) 3.16 K/UL ABSOLUTE LYMPHOCYTES (test c ode = 1067) 1.49 K/UL ABSOLUTE MONOCYTES (test cod e = 1068) 0.38 K/UL ABSOLUTE EOSINOPHILS (test c ode = 1040) 0.10 K/UL ABSOLUTE BASOPHILS (test cod e = 1069) 0.03 K/UL ABS IMMATURE GRANULOCYTES (t est code = 1020) 0.02 K/UL ABS NUCLEATED RBCS (test cod e = 68034) 0.00 K/UL Teodoro CantuHEMOGLOBIN [id number] 00:00:00* Test Item Value Reference Range Interpretation Comme nts HEMOGLOBIN A1c (test code = 09230) 10.4 % Teodoro CantuALBUMIN/CREATININE RATIO, RANDOM [id number] 00:00:00* Test Item Value Reference Range Interpretation Comme nts CREATININE, URINE, CONC. (te st code = 2072) 31.1 MG/DL ALBUMIN, URINE, RANDOM (test code = 64433) <0.2 MG/DL CALC ALBUMIN/CREAT, RND (eden t code = 04331) <6 MG/G Teodoro CantuPSA, [id number] 00:00:00* Test Item Value Reference Range Interpretation Comme nts PSA, TOTAL (test code = 2606) 0.12 NG/ML Teodoro CantuCOMPREHENSIVE METABOLIC [id number] 00:00:00* Test Item Value Reference Range Interpretation Comme nts GLUCOSE (test code = 2217) 252 MG/DL BUN (test code = 2208) 9 MG/DL CREATININE (test code = 2214) 0.50 MG/DL eGFR (2020 CKD-EPI) (test code = 56577) 123 ML/MIN/1.73 CALC BUN/CREAT (test code = 2235) 18 RATIO SODIUM (test code = 2231) 139 MEQ/L POTASSIUM (test code = 2228) 4.0 MEQ/L CHLORIDE (test code = 2215) 101 MEQ/L CARBON DIOXIDE (test code = 2206) 16 MEQ/L CALCIUM (test code = 2209) 9.2 MG/DL PROTEIN, TOTAL (test code = 2229) 6.7 G/DL ALBUMIN (test code = 2201) 4.7 G/DL CALC GLOBULIN (test code = 2240) 2.0 G/DL CALC A/G RATIO (test code = 2234) 2.4 RATIO BILIRUBIN, TOTAL (test code = 2207) 0.4 MG/DL ALKALINE PHOSPHATASE (test code = 2204) 157 U/L AST (test code = 2218) 14 U/L ALT (test code = 2219) 23 U/L Teodoro CantuLIPID [id number] 00:00:00* Test Item Value Reference Range Interpretation Comme nts CHOLESTEROL (test code = 2210) 138 MG/DL TRIGLYCERIDES (test code = 2232) 348 MG/DL HDL CHOLESTEROL (test code = 2220) 32 MG/DL CALC LDL CHOL (test code = 2237) 64 MG/DL RISK RATIO LDL/HDL (test cod e = 2238) 2.00 RATIO Teodoro CantuURINALYSIS W/REFLEX [id number] 00:00:00* Test Item Value Reference Range Interpretation Comme nts COLOR (test code = 1501) YELLOW APPEARANCE (test code = 1502) CLEAR SPECIFIC GRAVITY (test code = 1503) 1.012 LEUKOCYTE ESTERASE (test cod e = 1504) NEGATIVE NITRITE (test code = 1505) NEGATIVE pH (test code = 1506) 5.5 PROTEIN (test code = 1507) NEGATIVE GLUCOSE (test code = 1508) 3+ KETONES (test code = 1509) TRACE UROBILINOGEN (test code = 1510) 0.2 MG/DL BILIRUBIN (test code = 1511) NEGATIVE OCCULT BLOOD (test code = 1512) NEGATIVE Teodoro CantuCBC W/AUTO [id number] 00:00:00* Test Item Value Reference Range Interpretation Comme nts WBC (test code = 1001) 5.2 K/UL RBC (test code = 1002) 5.22 M/UL HEMOGLOBIN (test code = 1003) 14.0 G/DL HEMATOCRIT (test code = 1004) 42.0 % MCV (test code = 1005) 80.5 fL MCH (test code = 1006) 26.8 PG MCHC (test code = 1007) 33.3 G/DL RDW (test code = 1038) 15.0 % NEUTROPHILS (test code = 1008) 61.0 % LYMPHOCYTES (test code = 1010) 28.8 % MONOCYTES (test code = 1011) 7.3 % EOSINOPHILS (test code = 1012) 1.9 % BASOPHILS (test code = 1013) 0.6 % IMMATURE GRANULOCYTES (test code = 1036) 0.4 % NUCLEATED RBCS (test code = 1065) 0.0 /100WBC'S PLATELET COUNT (test code = 1015) 184 K/UL ABSOLUTE NEUTROPHILS (test c ode = 1066) 3.16 K/UL ABSOLUTE LYMPHOCYTES (test c ode = 1067) 1.49 K/UL ABSOLUTE MONOCYTES (test cod e = 1068) 0.38 K/UL ABSOLUTE EOSINOPHILS (test c ode = 1040) 0.10 K/UL ABSOLUTE BASOPHILS (test cod e = 1069) 0.03 K/UL ABS IMMATURE GRANULOCYTES (t est code = 1020) 0.02 K/UL ABS NUCLEATED RBCS (test cod e = 16704) 0.00 K/UL Teodoro CantuLIPID [id number] 00:00:00* Test Item Value Reference Range Interpretation Comme nts CHOLESTEROL (test code = 2210) 138 MG/DL TRIGLYCERIDES (test code = 2232) 348 MG/DL HDL CHOLESTEROL (test code = 2220) 32 MG/DL CALC LDL CHOL (test code = 2237) 64 MG/DL RISK RATIO LDL/HDL (test cod e = 2238) 2.00 RATIO Teodoro CantuHEMOGLOBIN [id number] 00:00:00* Test Item Value Reference Range Interpretation Comme nts HEMOGLOBIN A1c (test code = 29556) 10.4 % Teodoro Dodge PepeALBUMIN/CREATININE RATIO, RANDOM [id number] 00:00:00* Test Item Value Reference Range Interpretation Comme nts CREATININE, URINE, CONC. (te st code = 2072) 31.1 MG/DL ALBUMIN, URINE, RANDOM (test code = 32054) <0.2 MG/DL CALC ALBUMIN/CREAT, RND (eden t code = 17646) <6 MG/G Teodoro CantuPSA, [id number] 00:00:00* Test Item Value Reference Range Interpretation Comme nts PSA, TOTAL (test code = 2606) 0.12 NG/ML Teodoro CantuCOMPREHENSIVE METABOLIC [id number] 00:00:00* Test Item Value Reference Range Interpretation Comme nts GLUCOSE (test code = 2217) 252 MG/DL BUN (test code = 2208) 9 MG/DL CREATININE (test code = 2214) 0.50 MG/DL eGFR (2020 CKD-EPI) (test code = 07254) 123 ML/MIN/1.73 CALC BUN/CREAT (test code = 2235) 18 RATIO SODIUM (test code = 2231) 139 MEQ/L POTASSIUM (test code = 2228) 4.0 MEQ/L CHLORIDE (test code = 2215) 101 MEQ/L CARBON DIOXIDE (test code = 2206) 16 MEQ/L CALCIUM (test code = 2209) 9.2 MG/DL PROTEIN, TOTAL (test code = 2229) 6.7 G/DL ALBUMIN (test code = 2201) 4.7 G/DL CALC GLOBULIN (test code = 2240) 2.0 G/DL CALC A/G RATIO (test code = 2234) 2.4 RATIO BILIRUBIN, TOTAL (test code = 2207) 0.4 MG/DL ALKALINE PHOSPHATASE (test code = 2204) 157 U/L AST (test code = 2218) 14 U/L ALT (test code = 2219) 23 U/L Teodoro CantuLIPID [id number] 00:00:00* Test Item Value Reference Range Interpretation Comme nts CHOLESTEROL (test code = 2210) 138 MG/DL TRIGLYCERIDES (test code = 2232) 348 MG/DL HDL CHOLESTEROL (test code = 2220) 32 MG/DL CALC LDL CHOL (test code = 2237) 64 MG/DL RISK RATIO LDL/HDL (test cod e = 2238) 2.00 RATIO Teodoro Dodge AustinURINALYSIS W/REFLEX [id number] 00:00:00* Test Item Value Reference Range Interpretation Comme nts COLOR (test code = 1501) YELLOW APPEARANCE (test code = 1502) CLEAR SPECIFIC GRAVITY (test code = 1503) 1.012 LEUKOCYTE ESTERASE (test cod e = 1504) NEGATIVE NITRITE (test code = 1505) NEGATIVE pH (test code = 1506) 5.5 PROTEIN (test code = 1507) NEGATIVE GLUCOSE (test code = 1508) 3+ KETONES (test code = 1509) TRACE UROBILINOGEN (test code = 1510) 0.2 MG/DL BILIRUBIN (test code = 1511) NEGATIVE OCCULT BLOOD (test code = 1512) NEGATIVE Teodoro CantuCBC W/AUTO [id number] 00:00:00* Test Item Value Reference Range Interpretation Comme nts WBC (test code = 1001) 5.2 K/UL RBC (test code = 1002) 5.22 M/UL HEMOGLOBIN (test code = 1003) 14.0 G/DL HEMATOCRIT (test code = 1004) 42.0 % MCV (test code = 1005) 80.5 fL MCH (test code = 1006) 26.8 PG MCHC (test code = 1007) 33.3 G/DL RDW (test code = 1038) 15.0 % NEUTROPHILS (test code = 1008) 61.0 % LYMPHOCYTES (test code = 1010) 28.8 % MONOCYTES (test code = 1011) 7.3 % EOSINOPHILS (test code = 1012) 1.9 % BASOPHILS (test code = 1013) 0.6 % IMMATURE GRANULOCYTES (test code = 1036) 0.4 % NUCLEATED RBCS (test code = 1065) 0.0 /100WBC'S PLATELET COUNT (test code = 1015) 184 K/UL ABSOLUTE NEUTROPHILS (test c ode = 1066) 3.16 K/UL ABSOLUTE LYMPHOCYTES (test c ode = 1067) 1.49 K/UL ABSOLUTE MONOCYTES (test cod e = 1068) 0.38 K/UL ABSOLUTE EOSINOPHILS (test c ode = 1040) 0.10 K/UL ABSOLUTE BASOPHILS (test cod e = 1069) 0.03 K/UL ABS IMMATURE GRANULOCYTES (t est code = 1020) 0.02 K/UL ABS NUCLEATED RBCS (test cod e = 86719) 0.00 K/UL Teodoro CantuHEMOGLOBIN [id number] 00:00:00* Test Item Value Reference Range Interpretation Comme nts HEMOGLOBIN A1c (test code = 90019) 10.4 % Teodoro CantuALBUMIN/CREATININE RATIO, RANDOM [id number] 00:00:00* Test Item Value Reference Range Interpretation Comme nts CREATININE, URINE, CONC. (te st code = 2072) 31.1 MG/DL ALBUMIN, URINE, RANDOM (test code = 47471) <0.2 MG/DL CALC ALBUMIN/CREAT, RND (eden t code = 22293) <6 MG/G Teodoro CantuPSA, [id number] 00:00:00* Test Item Value Reference Range Interpretation Comme bria PSA, TOTAL (test code = 2606) 0.12 NG/ML Teodoro CantuURINALYSIS W/REFLEX [id number] 00:00:00* Test Item Value Reference Range Interpretation Comme nts COLOR (test code = 1501) YELLOW APPEARANCE (test code = 1502) CLEAR SPECIFIC GRAVITY (test code = 1503) 1.012 LEUKOCYTE ESTERASE (test cod e = 1504) NEGATIVE NITRITE (test code = 1505) NEGATIVE pH (test code = 1506) 5.5 PROTEIN (test code = 1507) NEGATIVE GLUCOSE (test code = 1508) 3+ KETONES (test code = 1509) TRACE UROBILINOGEN (test code = 1510) 0.2 MG/DL BILIRUBIN (test code = 1511) NEGATIVE OCCULT BLOOD (test code = 1512) NEGATIVE Teodoro CantuCBC W/AUTO [id number] 00:00:00* Test Item Value Reference Range Interpretation Comme nts WBC (test code = 1001) 5.2 K/UL RBC (test code = 1002) 5.22 M/UL HEMOGLOBIN (test code = 1003) 14.0 G/DL HEMATOCRIT (test code = 1004) 42.0 % MCV (test code = 1005) 80.5 fL MCH (test code = 1006) 26.8 PG MCHC (test code = 1007) 33.3 G/DL RDW (test code = 1038) 15.0 % NEUTROPHILS (test code = 1008) 61.0 % LYMPHOCYTES (test code = 1010) 28.8 % MONOCYTES (test code = 1011) 7.3 % EOSINOPHILS (test code = 1012) 1.9 % BASOPHILS (test code = 1013) 0.6 % IMMATURE GRANULOCYTES (test code = 1036) 0.4 % NUCLEATED RBCS (test code = 1065) 0.0 /100WBC'S PLATELET COUNT (test code = 1015) 184 K/UL ABSOLUTE NEUTROPHILS (test c ode = 1066) 3.16 K/UL ABSOLUTE LYMPHOCYTES (test c ode = 1067) 1.49 K/UL ABSOLUTE MONOCYTES (test cod e = 1068) 0.38 K/UL ABSOLUTE EOSINOPHILS (test c ode = 1040) 0.10 K/UL ABSOLUTE BASOPHILS (test cod e = 1069) 0.03 K/UL ABS IMMATURE GRANULOCYTES (t est code = 1020) 0.02 K/UL ABS NUCLEATED RBCS (test cod e = 96663) 0.00 K/UL Teodoro CantuHEMOGLOBIN [id number] 00:00:00* Test Item Value Reference Range Interpretation Comme nts HEMOGLOBIN A1c (test code = 74933) 10.4 % Teodoro CantuALBUMIN/CREATININE RATIO, RANDOM [id number] 00:00:00* Test Item Value Reference Range Interpretation Comme nts CREATININE, URINE, CONC. (te st code = 2072) 31.1 MG/DL ALBUMIN, URINE, RANDOM (test code = 88173) <0.2 MG/DL CALC ALBUMIN/CREAT, RND (eden t code = 16258) <6 MG/G Teodoro CantuPSA, [id number] 00:00:00* Test Item Value Reference Range Interpretation Comme nts PSA, TOTAL (test code = 2606) 0.12 NG/ML Teodoro CantuCOMPREHENSIVE METABOLIC [id number] 00:00:00* Test Item Value Reference Range Interpretation Comme nts GLUCOSE (test code = 2217) 252 MG/DL BUN (test code = 2208) 9 MG/DL CREATININE (test code = 2214) 0.50 MG/DL eGFR (2020 CKD-EPI) (test code = 06565) 123 ML/MIN/1.73 CALC BUN/CREAT (test code = 2235) 18 RATIO SODIUM (test code = 2231) 139 MEQ/L POTASSIUM (test code = 2228) 4.0 MEQ/L CHLORIDE (test code = 2215) 101 MEQ/L CARBON DIOXIDE (test code = 2206) 16 MEQ/L CALCIUM (test code = 2209) 9.2 MG/DL PROTEIN, TOTAL (test code = 2229) 6.7 G/DL ALBUMIN (test code = 2201) 4.7 G/DL CALC GLOBULIN (test code = 2240) 2.0 G/DL CALC A/G RATIO (test code = 2234) 2.4 RATIO BILIRUBIN, TOTAL (test code = 2207) 0.4 MG/DL ALKALINE PHOSPHATASE (test code = 2204) 157 U/L AST (test code = 2218) 14 U/L ALT (test code = 2219) 23 U/L Teodoro Dodge PepeLIPID [id number] 00:00:00* Test Item Value Reference Range Interpretation Comme nts CHOLESTEROL (test code = 2210) 138 MG/DL TRIGLYCERIDES (test code = 2232) 348 MG/DL HDL CHOLESTEROL (test code = 2220) 32 MG/DL CALC LDL CHOL (test code = 2237) 64 MG/DL RISK RATIO LDL/HDL (test cod e = 2238) 2.00 RATIO Teodoro Echo AustinURINALYSIS W/REFLEX [id number] 00:00:00* Test Item Value Reference Range Interpretation Comme nts COLOR (test code = 1501) YELLOW APPEARANCE (test code = 1502) CLEAR SPECIFIC GRAVITY (test code = 1503) 1.012 LEUKOCYTE ESTERASE (test cod e = 1504) NEGATIVE NITRITE (test code = 1505) NEGATIVE pH (test code = 1506) 5.5 PROTEIN (test code = 1507) NEGATIVE GLUCOSE (test code = 1508) 3+ KETONES (test code = 1509) TRACE UROBILINOGEN (test code = 1510) 0.2 MG/DL BILIRUBIN (test code = 1511) NEGATIVE OCCULT BLOOD (test code = 1512) NEGATIVE Teodoro Echo PepeCBC W/AUTO [id number] 00:00:00* Test Item Value Reference Range Interpretation Comme nts WBC (test code = 1001) 5.2 K/UL RBC (test code = 1002) 5.22 M/UL HEMOGLOBIN (test code = 1003) 14.0 G/DL HEMATOCRIT (test code = 1004) 42.0 % MCV (test code = 1005) 80.5 fL MCH (test code = 1006) 26.8 PG MCHC (test code = 1007) 33.3 G/DL RDW (test code = 1038) 15.0 % NEUTROPHILS (test code = 1008) 61.0 % LYMPHOCYTES (test code = 1010) 28.8 % MONOCYTES (test code = 1011) 7.3 % EOSINOPHILS (test code = 1012) 1.9 % BASOPHILS (test code = 1013) 0.6 % IMMATURE GRANULOCYTES (test code = 1036) 0.4 % NUCLEATED RBCS (test code = 1065) 0.0 /100WBC'S PLATELET COUNT (test code = 1015) 184 K/UL ABSOLUTE NEUTROPHILS (test c ode = 1066) 3.16 K/UL ABSOLUTE LYMPHOCYTES (test c ode = 1067) 1.49 K/UL ABSOLUTE MONOCYTES (test cod e = 1068) 0.38 K/UL ABSOLUTE EOSINOPHILS (test c ode = 1040) 0.10 K/UL ABSOLUTE BASOPHILS (test cod e = 1069) 0.03 K/UL ABS IMMATURE GRANULOCYTES (t est code = 1020) 0.02 K/UL ABS NUCLEATED RBCS (test cod e = 76196) 0.00 K/UL Teodoro CantuHEMOGLOBIN [id number] 00:00:00* Test Item Value Reference Range Interpretation Comme nts HEMOGLOBIN A1c (test code = 30587) 10.4 % Teodoro CantuALBUMIN/CREATININE RATIO, RANDOM [id number] 00:00:00* Test Item Value Reference Range Interpretation Comme nts CREATININE, URINE, CONC. (te st code = 2072) 31.1 MG/DL ALBUMIN, URINE, RANDOM (test code = 62055) <0.2 MG/DL CALC ALBUMIN/CREAT, RND (eden t code = 05434) <6 MG/G Teodoro Dodge PepePSA, [id number] 00:00:00* Test Item Value Reference Range Interpretation Comme nts PSA, TOTAL (test code = 2606) 0.12 NG/ML Teodoro Dodge PepeCOMPREHENSIVE METABOLIC [id number] 00:00:00* Test Item Value Reference Range Interpretation Comme nts GLUCOSE (test code = 2217) 252 MG/DL BUN (test code = 2208) 9 MG/DL CREATININE (test code = 2214) 0.50 MG/DL eGFR (2020 CKD-EPI) (test code = 56607) 123 ML/MIN/1.73 CALC BUN/CREAT (test code = 2235) 18 RATIO SODIUM (test code = 2231) 139 MEQ/L POTASSIUM (test code = 2228) 4.0 MEQ/L CHLORIDE (test code = 2215) 101 MEQ/L CARBON DIOXIDE (test code = 2206) 16 MEQ/L CALCIUM (test code = 2209) 9.2 MG/DL PROTEIN, TOTAL (test code = 2229) 6.7 G/DL ALBUMIN (test code = 2201) 4.7 G/DL CALC GLOBULIN (test code = 2240) 2.0 G/DL CALC A/G RATIO (test code = 2234) 2.4 RATIO BILIRUBIN, TOTAL (test code = 2207) 0.4 MG/DL ALKALINE PHOSPHATASE (test code = 2204) 157 U/L AST (test code = 2218) 14 U/L ALT (test code = 2219) 23 U/L Teodoro CantuLIPID [id number] 00:00:00* Test Item Value Reference Range Interpretation Comme nts CHOLESTEROL (test code = 2210) 138 MG/DL TRIGLYCERIDES (test code = 2232) 348 MG/DL HDL CHOLESTEROL (test code = 2220) 32 MG/DL CALC LDL CHOL (test code = 2237) 64 MG/DL RISK RATIO LDL/HDL (test cod e = 2238) 2.00 RATIO Teodoro Dodge AustinURINALYSIS W/REFLEX [id number] 00:00:00* Test Item Value Reference Range Interpretation Comme nts COLOR (test code = 1501) YELLOW APPEARANCE (test code = 1502) CLEAR SPECIFIC GRAVITY (test code = 1503) 1.012 LEUKOCYTE ESTERASE (test cod e = 1504) NEGATIVE NITRITE (test code = 1505) NEGATIVE pH (test code = 1506) 5.5 PROTEIN (test code = 1507) NEGATIVE GLUCOSE (test code = 1508) 3+ KETONES (test code = 1509) TRACE UROBILINOGEN (test code = 1510) 0.2 MG/DL BILIRUBIN (test code = 1511) NEGATIVE OCCULT BLOOD (test code = 1512) NEGATIVE Teodoro CantuCBC W/AUTO [id number] 00:00:00* Test Item Value Reference Range Interpretation Comme nts WBC (test code = 1001) 5.2 K/UL RBC (test code = 1002) 5.22 M/UL HEMOGLOBIN (test code = 1003) 14.0 G/DL HEMATOCRIT (test code = 1004) 42.0 % MCV (test code = 1005) 80.5 fL MCH (test code = 1006) 26.8 PG MCHC (test code = 1007) 33.3 G/DL RDW (test code = 1038) 15.0 % NEUTROPHILS (test code = 1008) 61.0 % LYMPHOCYTES (test code = 1010) 28.8 % MONOCYTES (test code = 1011) 7.3 % EOSINOPHILS (test code = 1012) 1.9 % BASOPHILS (test code = 1013) 0.6 % IMMATURE GRANULOCYTES (test code = 1036) 0.4 % NUCLEATED RBCS (test code = 1065) 0.0 /100WBC'S PLATELET COUNT (test code = 1015) 184 K/UL ABSOLUTE NEUTROPHILS (test c ode = 1066) 3.16 K/UL ABSOLUTE LYMPHOCYTES (test c ode = 1067) 1.49 K/UL ABSOLUTE MONOCYTES (test cod e = 1068) 0.38 K/UL ABSOLUTE EOSINOPHILS (test c ode = 1040) 0.10 K/UL ABSOLUTE BASOPHILS (test cod e = 1069) 0.03 K/UL ABS IMMATURE GRANULOCYTES (t est code = 1020) 0.02 K/UL ABS NUCLEATED RBCS (test cod e = 80299) 0.00 K/UL Teodoro CantuHEMOGLOBIN [id number] 00:00:00* Test Item Value Reference Range Interpretation Comme nts HEMOGLOBIN A1c (test code = 86978) 10.4 % Teodoro Dodge PepeALBUMIN/CREATININE RATIO, RANDOM [id number] 00:00:00* Test Item Value Reference Range Interpretation Comme nts CREATININE, URINE, CONC. (te st code = 2072) 31.1 MG/DL ALBUMIN, URINE, RANDOM (test code = 35651) <0.2 MG/DL CALC ALBUMIN/CREAT, RND (eden t code = 00351) <6 MG/G Teodoro CantuPSA, [id number] 00:00:00* Test Item Value Reference Range Interpretation Comme nts PSA, TOTAL (test code = 2606) 0.12 NG/ML Teodoro CantuCOMPREHENSIVE METABOLIC [id number] 00:00:00* Test Item Value Reference Range Interpretation Comme nts GLUCOSE (test code = 2217) 252 MG/DL BUN (test code = 2208) 9 MG/DL CREATININE (test code = 2214) 0.50 MG/DL eGFR (2020 CKD-EPI) (test code = 76500) 123 ML/MIN/1.73 CALC BUN/CREAT (test code = 2235) 18 RATIO SODIUM (test code = 2231) 139 MEQ/L POTASSIUM (test code = 2228) 4.0 MEQ/L CHLORIDE (test code = 2215) 101 MEQ/L CARBON DIOXIDE (test code = 2206) 16 MEQ/L CALCIUM (test code = 2209) 9.2 MG/DL PROTEIN, TOTAL (test code = 2229) 6.7 G/DL ALBUMIN (test code = 2201) 4.7 G/DL CALC GLOBULIN (test code = 2240) 2.0 G/DL CALC A/G RATIO (test code = 2234) 2.4 RATIO BILIRUBIN, TOTAL (test code = 2207) 0.4 MG/DL ALKALINE PHOSPHATASE (test code = 2204) 157 U/L AST (test code = 2218) 14 U/L ALT (test code = 2219) 23 U/L Teodoro CantuLIPID [id number] 00:00:00* Test Item Value Reference Range Interpretation Comme nts CHOLESTEROL (test code = 2210) 138 MG/DL TRIGLYCERIDES (test code = 2232) 348 MG/DL HDL CHOLESTEROL (test code = 2220) 32 MG/DL CALC LDL CHOL (test code = 2237) 64 MG/DL RISK RATIO LDL/HDL (test cod e = 2238) 2.00 RATIO Teodoro CantuURINALYSIS W/REFLEX [id number] 00:00:00* Test Item Value Reference Range Interpretation Comme nts COLOR (test code = 1501) YELLOW APPEARANCE (test code = 1502) CLEAR SPECIFIC GRAVITY (test code = 1503) 1.012 LEUKOCYTE ESTERASE (test cod e = 1504) NEGATIVE NITRITE (test code = 1505) NEGATIVE pH (test code = 1506) 5.5 PROTEIN (test code = 1507) NEGATIVE GLUCOSE (test code = 1508) 3+ KETONES (test code = 1509) TRACE UROBILINOGEN (test code = 1510) 0.2 MG/DL BILIRUBIN (test code = 1511) NEGATIVE OCCULT BLOOD (test code = 1512) NEGATIVE Teodoro CantuCBC W/AUTO [id number] 00:00:00* Test Item Value Reference Range Interpretation Comme nts WBC (test code = 1001) 5.2 K/UL RBC (test code = 1002) 5.22 M/UL HEMOGLOBIN (test code = 1003) 14.0 G/DL HEMATOCRIT (test code = 1004) 42.0 % MCV (test code = 1005) 80.5 fL MCH (test code = 1006) 26.8 PG MCHC (test code = 1007) 33.3 G/DL RDW (test code = 1038) 15.0 % NEUTROPHILS (test code = 1008) 61.0 % LYMPHOCYTES (test code = 1010) 28.8 % MONOCYTES (test code = 1011) 7.3 % EOSINOPHILS (test code = 1012) 1.9 % BASOPHILS (test code = 1013) 0.6 % IMMATURE GRANULOCYTES (test code = 1036) 0.4 % NUCLEATED RBCS (test code = 1065) 0.0 /100WBC'S PLATELET COUNT (test code = 1015) 184 K/UL ABSOLUTE NEUTROPHILS (test c ode = 1066) 3.16 K/UL ABSOLUTE LYMPHOCYTES (test c ode = 1067) 1.49 K/UL ABSOLUTE MONOCYTES (test cod e = 1068) 0.38 K/UL ABSOLUTE EOSINOPHILS (test c ode = 1040) 0.10 K/UL ABSOLUTE BASOPHILS (test cod e = 1069) 0.03 K/UL ABS IMMATURE GRANULOCYTES (t est code = 1020) 0.02 K/UL ABS NUCLEATED RBCS (test cod e = 37603) 0.00 K/UL Teodoro CantuHEMOGLOBIN [id number] 00:00:00* Test Item Value Reference Range Interpretation Comme nts HEMOGLOBIN A1c (test code = 98603) 10.4 % Teodoro CantuALBUMIN/CREATININE RATIO, RANDOM [id number] 00:00:00* Test Item Value Reference Range Interpretation Comme nts CREATININE, URINE, CONC. (te st code = 2072) 31.1 MG/DL ALBUMIN, URINE, RANDOM (test code = 51596) <0.2 MG/DL CALC ALBUMIN/CREAT, RND (eden t code = 56755) <6 MG/G Teodoro CantuPSA, [id number] 00:00:00* Test Item Value Reference Range Interpretation Comme nts PSA, TOTAL (test code = 2606) 0.12 NG/ML Teodoro CantuCOMPREHENSIVE METABOLIC [id number] 00:00:00* Test Item Value Reference Range Interpretation Comme nts GLUCOSE (test code = 2217) 252 MG/DL BUN (test code = 2208) 9 MG/DL CREATININE (test code = 2214) 0.50 MG/DL eGFR (2020 CKD-EPI) (test code = 70136) 123 ML/MIN/1.73 CALC BUN/CREAT (test code = 2235) 18 RATIO SODIUM (test code = 2231) 139 MEQ/L POTASSIUM (test code = 2228) 4.0 MEQ/L CHLORIDE (test code = 2215) 101 MEQ/L CARBON DIOXIDE (test code = 2206) 16 MEQ/L CALCIUM (test code = 2209) 9.2 MG/DL PROTEIN, TOTAL (test code = 2229) 6.7 G/DL ALBUMIN (test code = 2201) 4.7 G/DL CALC GLOBULIN (test code = 2240) 2.0 G/DL CALC A/G RATIO (test code = 2234) 2.4 RATIO BILIRUBIN, TOTAL (test code = 2207) 0.4 MG/DL ALKALINE PHOSPHATASE (test code = 2204) 157 U/L AST (test code = 2218) 14 U/L ALT (test code = 2219) 23 U/L Teodoro CantuLIPID [id number] 00:00:00* Test Item Value Reference Range Interpretation Comme nts CHOLESTEROL (test code = 2210) 138 MG/DL TRIGLYCERIDES (test code = 2232) 348 MG/DL HDL CHOLESTEROL (test code = 2220) 32 MG/DL CALC LDL CHOL (test code = 2237) 64 MG/DL RISK RATIO LDL/HDL (test cod e = 2238) 2.00 RATIO Teodoro F AustinURINALYSIS W/REFLEX [id number] 00:00:00* Test Item Value Reference Range Interpretation Comme nts COLOR (test code = 1501) YELLOW APPEARANCE (test code = 1502) CLEAR SPECIFIC GRAVITY (test code = 1503) 1.012 LEUKOCYTE ESTERASE (test cod e = 1504) NEGATIVE NITRITE (test code = 1505) NEGATIVE pH (test code = 1506) 5.5 PROTEIN (test code = 1507) NEGATIVE GLUCOSE (test code = 1508) 3+ KETONES (test code = 1509) TRACE UROBILINOGEN (test code = 1510) 0.2 MG/DL BILIRUBIN (test code = 1511) NEGATIVE OCCULT BLOOD (test code = 1512) NEGATIVE Teodoro Dodge AustinCBC W/AUTO [id number] 00:00:00* Test Item Value Reference Range Interpretation Comme nts WBC (test code = 1001) 5.2 K/UL RBC (test code = 1002) 5.22 M/UL HEMOGLOBIN (test code = 1003) 14.0 G/DL HEMATOCRIT (test code = 1004) 42.0 % MCV (test code = 1005) 80.5 fL MCH (test code = 1006) 26.8 PG MCHC (test code = 1007) 33.3 G/DL RDW (test code = 1038) 15.0 % NEUTROPHILS (test code = 1008) 61.0 % LYMPHOCYTES (test code = 1010) 28.8 % MONOCYTES (test code = 1011) 7.3 % EOSINOPHILS (test code = 1012) 1.9 % BASOPHILS (test code = 1013) 0.6 % IMMATURE GRANULOCYTES (test code = 1036) 0.4 % NUCLEATED RBCS (test code = 1065) 0.0 /100WBC'S PLATELET COUNT (test code = 1015) 184 K/UL ABSOLUTE NEUTROPHILS (test c ode = 1066) 3.16 K/UL ABSOLUTE LYMPHOCYTES (test c ode = 1067) 1.49 K/UL ABSOLUTE MONOCYTES (test cod e = 1068) 0.38 K/UL ABSOLUTE EOSINOPHILS (test c ode = 1040) 0.10 K/UL ABSOLUTE BASOPHILS (test cod e = 1069) 0.03 K/UL ABS IMMATURE GRANULOCYTES (t est code = 1020) 0.02 K/UL ABS NUCLEATED RBCS (test cod e = 82337) 0.00 K/UL Teodoro CantuHEMOGLOBIN [id number] 00:00:00* Test Item Value Reference Range Interpretation Comme bria HEMOGLOBIN A1c (test code = 13493) 10.4 % Teodoro CantuALBUMIN/CREATININE RATIO, RANDOM [id number] 00:00:00* Test Item Value Reference Range Interpretation Comme nts CREATININE, URINE, CONC. (te st code = 2072) 31.1 MG/DL ALBUMIN, URINE, RANDOM (test code = 54282) <0.2 MG/DL CALC ALBUMIN/CREAT, RND (eden t code = 49655) <6 MG/G Teodoro CantuPSA, [id number] 00:00:00* Test Item Value Reference Range Interpretation Comme nts PSA, TOTAL (test code = 2606) 0.12 NG/ML Teodoro CantuCOMPREHENSIVE METABOLIC [id number] 00:00:00* Test Item Value Reference Range Interpretation Comme nts GLUCOSE (test code = 2217) 252 MG/DL BUN (test code = 2208) 9 MG/DL CREATININE (test code = 2214) 0.50 MG/DL eGFR (2020 CKD-EPI) (test code = 16504) 123 ML/MIN/1.73 CALC BUN/CREAT (test code = 2235) 18 RATIO SODIUM (test code = 2231) 139 MEQ/L POTASSIUM (test code = 2228) 4.0 MEQ/L CHLORIDE (test code = 2215) 101 MEQ/L CARBON DIOXIDE (test code = 2206) 16 MEQ/L CALCIUM (test code = 2209) 9.2 MG/DL PROTEIN, TOTAL (test code = 2229) 6.7 G/DL ALBUMIN (test code = 2201) 4.7 G/DL CALC GLOBULIN (test code = 2240) 2.0 G/DL CALC A/G RATIO (test code = 2234) 2.4 RATIO BILIRUBIN, TOTAL (test code = 2207) 0.4 MG/DL ALKALINE PHOSPHATASE (test code = 2204) 157 U/L AST (test code = 2218) 14 U/L ALT (test code = 2219) 23 U/L Teodoro CantuLIPID [id number] 00:00:00* Test Item Value Reference Range Interpretation Comme nts CHOLESTEROL (test code = 2210) 138 MG/DL TRIGLYCERIDES (test code = 2232) 348 MG/DL HDL CHOLESTEROL (test code = 2220) 32 MG/DL CALC LDL CHOL (test code = 2237) 64 MG/DL RISK RATIO LDL/HDL (test cod e = 2238) 2.00 RATIO Teodoro Dodge AustinURINALYSIS W/REFLEX [id number] 00:00:00* Test Item Value Reference Range Interpretation Comme nts COLOR (test code = 1501) YELLOW APPEARANCE (test code = 1502) CLEAR SPECIFIC GRAVITY (test code = 1503) 1.012 LEUKOCYTE ESTERASE (test cod e = 1504) NEGATIVE NITRITE (test code = 1505) NEGATIVE pH (test code = 1506) 5.5 PROTEIN (test code = 1507) NEGATIVE GLUCOSE (test code = 1508) 3+ KETONES (test code = 1509) TRACE UROBILINOGEN (test code = 1510) 0.2 MG/DL BILIRUBIN (test code = 1511) NEGATIVE OCCULT BLOOD (test code = 1512) NEGATIVE Teodoro Dodge AustinCBC W/AUTO [id number] 00:00:00* Test Item Value Reference Range Interpretation Comme nts WBC (test code = 1001) 5.2 K/UL RBC (test code = 1002) 5.22 M/UL HEMOGLOBIN (test code = 1003) 14.0 G/DL HEMATOCRIT (test code = 1004) 42.0 % MCV (test code = 1005) 80.5 fL MCH (test code = 1006) 26.8 PG MCHC (test code = 1007) 33.3 G/DL RDW (test code = 1038) 15.0 % NEUTROPHILS (test code = 1008) 61.0 % LYMPHOCYTES (test code = 1010) 28.8 % MONOCYTES (test code = 1011) 7.3 % EOSINOPHILS (test code = 1012) 1.9 % BASOPHILS (test code = 1013) 0.6 % IMMATURE GRANULOCYTES (test code = 1036) 0.4 % NUCLEATED RBCS (test code = 1065) 0.0 /100WBC'S PLATELET COUNT (test code = 1015) 184 K/UL ABSOLUTE NEUTROPHILS (test c ode = 1066) 3.16 K/UL ABSOLUTE LYMPHOCYTES (test c ode = 1067) 1.49 K/UL ABSOLUTE MONOCYTES (test cod e = 1068) 0.38 K/UL ABSOLUTE EOSINOPHILS (test c ode = 1040) 0.10 K/UL ABSOLUTE BASOPHILS (test cod e = 1069) 0.03 K/UL ABS IMMATURE GRANULOCYTES (t est code = 1020) 0.02 K/UL ABS NUCLEATED RBCS (test cod e = 82230) 0.00 K/UL Teodoro CantuHEMOGLOBIN [id number] 00:00:00* Test Item Value Reference Range Interpretation Comme bria HEMOGLOBIN A1c (test code = 01501) 10.4 % Teodoro CantuALBUMIN/CREATININE RATIO, RANDOM [id number] 00:00:00* Test Item Value Reference Range Interpretation Comme bria CREATININE, URINE, CONC. (te st code = 2072) 31.1 MG/DL ALBUMIN, URINE, RANDOM (test code = 31430) <0.2 MG/DL CALC ALBUMIN/CREAT, RND (eden t code = 94509) <6 MG/G Teodoro CantuPSA, [id number] 00:00:00* Test Item Value Reference Range Interpretation Comme nts PSA, TOTAL (test code = 2606) 0.12 NG/ML Teodoro CantuCOMPREHENSIVE METABOLIC [id number] 00:00:00* Test Item Value Reference Range Interpretation Comme nts GLUCOSE (test code = 2217) 252 MG/DL BUN (test code = 2208) 9 MG/DL CREATININE (test code = 2214) 0.50 MG/DL eGFR (2020 CKD-EPI) (test code = 53579) 123 ML/MIN/1.73 CALC BUN/CREAT (test code = 2235) 18 RATIO SODIUM (test code = 2231) 139 MEQ/L POTASSIUM (test code = 2228) 4.0 MEQ/L CHLORIDE (test code = 2215) 101 MEQ/L CARBON DIOXIDE (test code = 2206) 16 MEQ/L CALCIUM (test code = 2209) 9.2 MG/DL PROTEIN, TOTAL (test code = 2229) 6.7 G/DL ALBUMIN (test code = 2201) 4.7 G/DL CALC GLOBULIN (test code = 2240) 2.0 G/DL CALC A/G RATIO (test code = 2234) 2.4 RATIO BILIRUBIN, TOTAL (test code = 2207) 0.4 MG/DL ALKALINE PHOSPHATASE (test code = 2204) 157 U/L AST (test code = 2218) 14 U/L ALT (test code = 2219) 23 U/L Teodoro CantuLIPID [id number] 00:00:00* Test Item Value Reference Range Interpretation Comme nts CHOLESTEROL (test code = 2210) 138 MG/DL TRIGLYCERIDES (test code = 2232) 348 MG/DL HDL CHOLESTEROL (test code = 2220) 32 MG/DL CALC LDL CHOL (test code = 2237) 64 MG/DL RISK RATIO LDL/HDL (test cod e = 2238) 2.00 RATIO Teodoro Dodge AustinURINALYSIS W/REFLEX [id number] 00:00:00* Test Item Value Reference Range Interpretation Comme nts COLOR (test code = 1501) YELLOW APPEARANCE (test code = 1502) CLEAR SPECIFIC GRAVITY (test code = 1503) 1.012 LEUKOCYTE ESTERASE (test cod e = 1504) NEGATIVE NITRITE (test code = 1505) NEGATIVE pH (test code = 1506) 5.5 PROTEIN (test code = 1507) NEGATIVE GLUCOSE (test code = 1508) 3+ KETONES (test code = 1509) TRACE UROBILINOGEN (test code = 1510) 0.2 MG/DL BILIRUBIN (test code = 1511) NEGATIVE OCCULT BLOOD (test code = 1512) NEGATIVE Teodoro CantuCBC W/AUTO [id number] 00:00:00* Test Item Value Reference Range Interpretation Comme nts WBC (test code = 1001) 5.2 K/UL RBC (test code = 1002) 5.22 M/UL HEMOGLOBIN (test code = 1003) 14.0 G/DL HEMATOCRIT (test code = 1004) 42.0 % MCV (test code = 1005) 80.5 fL MCH (test code = 1006) 26.8 PG MCHC (test code = 1007) 33.3 G/DL RDW (test code = 1038) 15.0 % NEUTROPHILS (test code = 1008) 61.0 % LYMPHOCYTES (test code = 1010) 28.8 % MONOCYTES (test code = 1011) 7.3 % EOSINOPHILS (test code = 1012) 1.9 % BASOPHILS (test code = 1013) 0.6 % IMMATURE GRANULOCYTES (test code = 1036) 0.4 % NUCLEATED RBCS (test code = 1065) 0.0 /100WBC'S PLATELET COUNT (test code = 1015) 184 K/UL ABSOLUTE NEUTROPHILS (test c ode = 1066) 3.16 K/UL ABSOLUTE LYMPHOCYTES (test c ode = 1067) 1.49 K/UL ABSOLUTE MONOCYTES (test cod e = 1068) 0.38 K/UL ABSOLUTE EOSINOPHILS (test c ode = 1040) 0.10 K/UL ABSOLUTE BASOPHILS (test cod e = 1069) 0.03 K/UL ABS IMMATURE GRANULOCYTES (t est code = 1020) 0.02 K/UL ABS NUCLEATED RBCS (test cod e = 55721) 0.00 K/UL Teodoro Dodge AustinALBUMIN/CREATININE RATIO, URINE, [id number] 02:37:51* Test Item Value Reference Range Interpretation Comme nts CREATININE, URINE, CONC. (test code = 2071) 44.3 MG/DL NOT ESTAB ALBUMIN, URINE, RANDOM (test code = 30534) <0.2 MG/DL NOT ESTAB CALC ALBUMIN/CREAT, RND (test code = 00251) <5 MG/G <30 Note: Albumin/Creatinine ratio reference interval reflects ADA and NKF guidelines. ALBUMIN/CREATININE RATIO, RANDOM [id number] 00:00:00* Test Item Value Reference Range Interpretation Comme nts CREATININE, URINE, CONC. (te st code = 2071) 44.3 MG/DL ALBUMIN, URINE, RANDOM (test code = 18248) <0.2 MG/DL CALC ALBUMIN/CREAT, RND (eden t code = 50146) <5 MG/G Teodoro Dodge AustinALBUMIN/CREATININE RATIO, RANDOM [id number] 00:00:00* Test Item Value Reference Range Interpretation Comme nts CREATININE, URINE, CONC. (te st code = 2071) 44.3 MG/DL ALBUMIN, URINE, RANDOM (test code = 12706) <0.2 MG/DL CALC ALBUMIN/CREAT, RND (eden t code = 52533) <5 MG/G Teodoro F AustinALBUMIN/CREATININE RATIO, RANDOM [id number] 00:00:00* Test Item Value Reference Range Interpretation Comme nts CREATININE, URINE, CONC. (te st code = 2071) 44.3 MG/DL ALBUMIN, URINE, RANDOM (test code = 97378) <0.2 MG/DL CALC ALBUMIN/CREAT, RND (eden t code = 69352) <5 MG/G Teodoro F AustinALBUMIN/CREATININE RATIO, RANDOM [id number] 00:00:00* Test Item Value Reference Range Interpretation Comme nts CREATININE, URINE, CONC. (te st code = 2071) 44.3 MG/DL ALBUMIN, URINE, RANDOM (test code = 18229) <0.2 MG/DL CALC ALBUMIN/CREAT, RND (eden t code = 81794) <5 MG/G Teodoro F AustinALBUMIN/CREATININE RATIO, RANDOM [id number] 00:00:00* Test Item Value Reference Range Interpretation Comme nts CREATININE, URINE, CONC. (te st code = 2071) 44.3 MG/DL ALBUMIN, URINE, RANDOM (test code = 49114) <0.2 MG/DL CALC ALBUMIN/CREAT, RND (eden t code = 67956) <5 MG/G Teodoro F AustinALBUMIN/CREATININE RATIO, RANDOM [id number] 00:00:00* Test Item Value Reference Range Interpretation Comme nts CREATININE, URINE, CONC. (te st code = 2071) 44.3 MG/DL ALBUMIN, URINE, RANDOM (test code = 79197) <0.2 MG/DL CALC ALBUMIN/CREAT, RND (eden t code = 13281) <5 MG/G Teodoro F AustinALBUMIN/CREATININE RATIO, RANDOM [id number] 00:00:00* Test Item Value Reference Range Interpretation Comme nts CREATININE, URINE, CONC. (te st code = 2071) 44.3 MG/DL ALBUMIN, URINE, RANDOM (test code = 29133) <0.2 MG/DL CALC ALBUMIN/CREAT, RND (eden t code = 96490) <5 MG/G Teodoro F AustinALBUMIN/CREATININE RATIO, RANDOM [id number] 00:00:00* Test Item Value Reference Range Interpretation Comme nts CREATININE, URINE, CONC. (te st code = 2071) 44.3 MG/DL ALBUMIN, URINE, RANDOM (test code = 37400) <0.2 MG/DL CALC ALBUMIN/CREAT, RND (eden t code = 55686) <5 MG/G Teodoro F AustinALBUMIN/CREATININE RATIO, RANDOM [id number] 00:00:00* Test Item Value Reference Range Interpretation Comme nts CREATININE, URINE, CONC. (te st code = 207) 44.3 MG/DL ALBUMIN, URINE, RANDOM (test code = 99471) <0.2 MG/DL CALC ALBUMIN/CREAT, RND (eden t code = 48434) <5 MG/G Teodoro F AustinALBUMIN/CREATININE RATIO, RANDOM [id number] 00:00:00* Test Item Value Reference Range Interpretation Comme nts CREATININE, URINE, CONC. (te st code = 2071) 44.3 MG/DL ALBUMIN, URINE, RANDOM (test code = 54864) <0.2 MG/DL CALC ALBUMIN/CREAT, RND (eden t code = 81099) <5 MG/G Teodoro F AustinALBUMIN/CREATININE RATIO, RANDOM [id number] 00:00:00* Test Item Value Reference Range Interpretation Comme nts CREATININE, URINE, CONC. (te st code = 2071) 44.3 MG/DL ALBUMIN, URINE, RANDOM (test code = 23422) <0.2 MG/DL CALC ALBUMIN/CREAT, RND (eden t code = 47818) <5 MG/G Teodoro F PepeVITAMIN D, 25 [id number] 02:36:55* Test Item Value Reference Range Interpretation Comme nts VITAMIN D, 25 OH (test code = 4958) 21 NG/ML SEE BELOW L EFFECTIVE 08/2023, PLEASE NOTE NEW METHODOLOGY IS ELECTROCHEMILUMINESCENCE BINDING ASSAY. NOTE: 25-HYDROXYVITAMIN D ASSAY INCLUDES 25-HYDROXYVITAMIN D2 AND D3. INTERPRETIVE RANGES PEDIATRIC (<17 YEARS) . . . . . . . . . . . NG/ML 20-100ADULT: INSUFFICIENT . . . . . . . . . . . . . . NG/ML <20 SUBOPTIMAL . . . . . . . . . . . . . . . NG/ML 20-29 OPTIMAL . . . . . . . . . . . . . . . . . NG/ML 30-100 UNLESS OTHERWISE INDICATED, ALL TESTING PERFORMED AT [facility] [address] [place] [id number] DOPE WORKER: HUNG MIRANDA M.D. CLIA NUMBER [id number] [facility] [place]. [id number] VITAMIN D, 25 [id number] 00:00:00* Test Item Value Reference Range Interpretation Comme nts VITAMIN D, 25 OH (test code = 4958) 21 NG/ML Teodoro F AustinVITAMIN D, 25 [id number] 00:00:00* Test Item Value Reference Range Interpretation Comme nts VITAMIN D, 25 OH (test code = 4958) 21 NG/ML Teodoro F AustinVITAMIN D, 25 [id number] 00:00:00* Test Item Value Reference Range Interpretation Comme nts VITAMIN D, 25 OH (test code = 4958) 21 NG/ML Teodoro F AustinVITAMIN D, 25 [id number] 00:00:00* Test Item Value Reference Range Interpretation Comme nts VITAMIN D, 25 OH (test code = 4958) 21 NG/ML Teodoro F AustinVITAMIN D, 25 [id number] 00:00:00* Test Item Value Reference Range Interpretation Comme nts VITAMIN D, 25 OH (test code = 4958) 21 NG/ML Teodoro F AustinVITAMIN D, 25 [id number] 00:00:00* Test Item Value Reference Range Interpretation Comme nts VITAMIN D, 25 OH (test code = 4958) 21 NG/ML Teodoro F AustinVITAMIN D, 25 [id number] 00:00:00* Test Item Value Reference Range Interpretation Comme nts VITAMIN D, 25 OH (test code = 4958) 21 NG/ML Teodoro F AustinVITAMIN D, 25 [id number] 00:00:00* Test Item Value Reference Range Interpretation Comme nts VITAMIN D, 25 OH (test code = 4958) 21 NG/ML Teodoro F AustinVITAMIN D, 25 [id number] 00:00:00* Test Item Value Reference Range Interpretation Comme nts VITAMIN D, 25 OH (test code = 4958) 21 NG/ML Teodoro F AustinVITAMIN D, 25 [id number] 00:00:00* Test Item Value Reference Range Interpretation Comme nts VITAMIN D, 25 OH (test code = 4958) 21 NG/ML Teodoro CantuVITAMIN D, 25 [id number] 00:00:00* Test Item Value Reference Range Interpretation Comme nts VITAMIN D, 25 OH (test code = 4958) 21 NG/ML Teodoro CantuLIPID [id number] 23:46:05* Test Item Value Reference Range Interpretation Comme nts CHOLESTEROL (test code = 2210) 134 MG/DL <200 TRIGLYCERIDES (test code = 2232) 185 MG/DL <150 H HDL CHOLESTEROL (test code = 2220) 33 MG/DL >39 L CALC LDL CHOL (test code = 2237) 73 MG/DL <100 NOTE: CALCULATED LDL IS BASED ON MIHAI-GONSALVES METHOD WHICHINCLUDES ADJUSTABLE TRIGLYCERIDE:VLDL CHOLESTEROL RATIO.THIS FACTOR VARIES BY MEASURED TRIGLYCERIDE AND NON-HDLCHOLESTEROL CONCENTRATIONS WITH INCREASED CALCULATED LDL SEENIN HIGHER TRIGLYCERIDE OR LOWER NON-HDL SPECIMENS. FOR MOREINFORMATION, SEE CLIENT ANNOUNCEMENT AT [email or web address] RATIO LDL/HDL (test code = 2238) 2.21 RATIO <3.55 COMPREHENSIVE METABOLIC [id number] 23:46:05* Test Item Value Reference Range Interpretation Comme nts GLUCOSE (test code = 2217) 94 MG/DL 70-99 BUN (test code = 8) 8 MG/DL 6-20 CREATININE (test code = 2214) 0.58 MG/DL 0.80-1.40 L eGFR (2020 CKD-EPI) (test code = 10666) 117 ML/MIN/1.73 >60 CALC BUN/CREAT (test code = 2235) 14 RATIO 6-28 SODIUM (test code = 223) 143 MEQ/L 133-146 POTASSIUM (test code = 2228) 4.5 MEQ/L 3.5-5.4 CHLORIDE (test code = 2215) 107 MEQ/L 95-107 CARBON DIOXIDE (test code = 2206) 23 MEQ/L 19-31 CALCIUM (test code = 2209) 9.3 MG/DL 8.5-10.5 PROTEIN, TOTAL (test code = 2228) 6.7 G/DL 6.1-8.3 ALBUMIN (test code = 220) 4.5 G/DL 3.5-5.2 CALC GLOBULIN (test code = 2240) 2.2 G/DL 1.9-3.7 CALC A/G RATIO (test code = 2234) 2.0 RATIO 1.0-2.6 BILIRUBIN, TOTAL (test code = 2207) 0.4 MG/DL See_Comment [Automated me ssage] The system which generated this result transmitted reference range: <=1.2. The reference range was not used to interpret this result as normal/abnormal. ALKALINE PHOSPHATASE (test code = 2204) 137 U/L 40-121 H AST (test code = 2218) 12 U/L 9-50 ALT (test code = 2219) 16 U/L 5-50 HEMOGLOBIN [id number] 03:52:42* Test Item Value Reference Range Interpretation Comme nts HEMOGLOBIN A1c (test code = 94218) 7.2 % 4.2-5.6 H [employer] GUIDELINES FOR HGB A1C: PREDIABETES/INCREASED RISK . . . . . . . 5.7-6.4% DIAGNOSIS OF DIABETES . . . . . . . . . >=6.5% WITH CONFIRMATION OR APPROPRIATE SYMPTOMS NOTE: ASSAY MAY BE AFFECTED BY HEMOGLOBINOPATHIES (SICKLE CELL ANEMIA, S-C DISEASE, OTHERS) OR ARTIFICIALLY LOWERED BY DECREASED RED CELL SURVIVAL (HEMOLYTIC ANEMIAS, BLOOD LOSS, ETC.). CONSIDER ALTERNATE TESTING OR LABORATORY CONSULTATION. CBC W/AUTO DIFF WITH [id number] 03:52:41* Test Item Value Reference Range Interpretation Comme nts WBC (test code = 1001) 6.5 K/UL 3.5-11.0 RBC (test code = 1002) 5.09 M/UL 4.50-6.10 HEMOGLOBIN (test code = 1003) 12.5 G/DL 13.5-17.0 L HEMATOCRIT (test code = 1004) 39.0 % 40.0-51.0 L MCV (test code = 1005) 76.6 fL 80.0-99.0 L MCH (test code = 1006) 24.6 PG 25.0-33.0 L MCHC (test code = 1007) 32.1 G/DL 31.0-36.0 RDW (test code = 1038) 15.8 % 11.5-15.0 H NEUTROPHILS (test code = 1008) 60.1 % LYMPHOCYTES (test code = 1010) 29.5 % MONOCYTES (test code = 1011) 8.0 % EOSINOPHILS (test code = 1012) 1.5 % BASOPHILS (test code = 1013) 0.6 % IMMATURE GRANULOCYTES (test code = 1036) 0.3 % NUCLEATED RBCS (test code = 1065) 0.0 /100 WBC'S See_Comment [Automated messa ge] The system which generated this result transmitted reference range: 0.0. The reference range was not used to interpret this result as normal/abnormal. PLATELET COUNT (test code = 1015) 199 K/UL 130-400 ABSOLUTE NEUTROPHILS (test code = 1066) 3.93 K/UL 1.50-7.50 ABSOLUTE LYMPHOCYTES (test code = 1067) 1.93 K/UL 1.00-4.00 ABSOLUTE MONOCYTES (test code = 1068) 0.52 K/UL 0.20-1.00 ABSOLUTE EOSINOPHILS (test code = 1040) 0.10 K/UL 0.00-0.50 ABSOLUTE BASOPHILS (test code = 1069) 0.04 K/UL 0.00-0.20 ABS IMMATURE GRANULOCYTES (test code = 1020) 0.02 K/UL 0.00-0.10 ABS NUCLEATED RBCS (test code = 05769) 0.00 K/UL 0.00-0.11 CBC W/AUTO [id number] 00:00:00* Test Item Value Reference Range Interpretation Comme nts WBC (test code = 1001) 6.5 K/UL RBC (test code = 1002) 5.09 M/UL HEMOGLOBIN (test code = 1003) 12.5 G/DL HEMATOCRIT (test code = 1004) 39.0 % MCV (test code = 1005) 76.6 fL MCH (test code = 1006) 24.6 PG MCHC (test code = 1007) 32.1 G/DL RDW (test code = 1038) 15.8 % NEUTROPHILS (test code = 1008) 60.1 % LYMPHOCYTES (test code = 1010) 29.5 % MONOCYTES (test code = 1011) 8.0 % EOSINOPHILS (test code = 1012) 1.5 % BASOPHILS (test code = 1013) 0.6 % IMMATURE GRANULOCYTES (test code = 1036) 0.3 % NUCLEATED RBCS (test code = 1065) 0.0 /100WBC'S PLATELET COUNT (test code = 1015) 199 K/UL ABSOLUTE NEUTROPHILS (test c ode = 1066) 3.93 K/UL ABSOLUTE LYMPHOCYTES (test c ode = 1067) 1.93 K/UL ABSOLUTE MONOCYTES (test cod e = 1068) 0.52 K/UL ABSOLUTE EOSINOPHILS (test c ode = 1040) 0.10 K/UL ABSOLUTE BASOPHILS (test cod e = 1069) 0.04 K/UL ABS IMMATURE GRANULOCYTES (t est code = 1020) 0.02 K/UL ABS NUCLEATED RBCS (test cod e = 13888) 0.00 K/UL Teodoro CantuCBC W/AUTO [id number] 00:00:00* Test Item Value Reference Range Interpretation Comme nts WBC (test code = 1001) 6.5 K/UL RBC (test code = 1002) 5.09 M/UL HEMOGLOBIN (test code = 1003) 12.5 G/DL HEMATOCRIT (test code = 1004) 39.0 % MCV (test code = 1005) 76.6 fL MCH (test code = 1006) 24.6 PG MCHC (test code = 1007) 32.1 G/DL RDW (test code = 1038) 15.8 % NEUTROPHILS (test code = 1008) 60.1 % LYMPHOCYTES (test code = 1010) 29.5 % MONOCYTES (test code = 1011) 8.0 % EOSINOPHILS (test code = 1012) 1.5 % BASOPHILS (test code = 1013) 0.6 % IMMATURE GRANULOCYTES (test code = 1036) 0.3 % NUCLEATED RBCS (test code = 1065) 0.0 /100WBC'S PLATELET COUNT (test code = 1015) 199 K/UL ABSOLUTE NEUTROPHILS (test c ode = 1066) 3.93 K/UL ABSOLUTE LYMPHOCYTES (test c ode = 1067) 1.93 K/UL ABSOLUTE MONOCYTES (test cod e = 1068) 0.52 K/UL ABSOLUTE EOSINOPHILS (test c ode = 1040) 0.10 K/UL ABSOLUTE BASOPHILS (test cod e = 1069) 0.04 K/UL ABS IMMATURE GRANULOCYTES (t est code = 1020) 0.02 K/UL ABS NUCLEATED RBCS (test cod e = 51838) 0.00 K/UL Teodoro CantuHEMOGLOBIN [id number] 00:00:00* Test Item Value Reference Range Interpretation Comme nts HEMOGLOBIN A1c (test code = 27352) 7.2 % Teodoro CantuLIPID [id number] 00:00:00* Test Item Value Reference Range Interpretation Comme nts CHOLESTEROL (test code = 2210) 134 MG/DL TRIGLYCERIDES (test code = 2232) 185 MG/DL HDL CHOLESTEROL (test code = 2220) 33 MG/DL CALC LDL CHOL (test code = 2237) 73 MG/DL RISK RATIO LDL/HDL (test cod e = 2238) 2.21 RATIO Teodoro CantuCOMPREHENSIVE METABOLIC [id number] 00:00:00* Test Item Value Reference Range Interpretation Comme nts GLUCOSE (test code = 2217) 94 MG/DL BUN (test code = 2208) 8 MG/DL CREATININE (test code = 2214) 0.58 MG/DL eGFR (2020 CKD-EPI) (test code = 89685) 117 ML/MIN/1.73 CALC BUN/CREAT (test code = 2235) 14 RATIO SODIUM (test code = 2231) 143 MEQ/L POTASSIUM (test code = 2228) 4.5 MEQ/L CHLORIDE (test code = 2215) 107 MEQ/L CARBON DIOXIDE (test code = 2206) 23 MEQ/L CALCIUM (test code = 2209) 9.3 MG/DL PROTEIN, TOTAL (test code = 2229) 6.7 G/DL ALBUMIN (test code = 2201) 4.5 G/DL CALC GLOBULIN (test code = 2240) 2.2 G/DL CALC A/G RATIO (test code = 2234) 2.0 RATIO BILIRUBIN, TOTAL (test code = 2207) 0.4 MG/DL ALKALINE PHOSPHATASE (test code = 2204) 137 U/L AST (test code = 2218) 12 U/L ALT (test code = 2219) 16 U/L Teodoro CantuCBC W/AUTO [id number] 00:00:00* Test Item Value Reference Range Interpretation Comme nts WBC (test code = 1001) 6.5 K/UL RBC (test code = 1002) 5.09 M/UL HEMOGLOBIN (test code = 1003) 12.5 G/DL HEMATOCRIT (test code = 1004) 39.0 % MCV (test code = 1005) 76.6 fL MCH (test code = 1006) 24.6 PG MCHC (test code = 1007) 32.1 G/DL RDW (test code = 1038) 15.8 % NEUTROPHILS (test code = 1008) 60.1 % LYMPHOCYTES (test code = 1010) 29.5 % MONOCYTES (test code = 1011) 8.0 % EOSINOPHILS (test code = 1012) 1.5 % BASOPHILS (test code = 1013) 0.6 % IMMATURE GRANULOCYTES (test code = 1036) 0.3 % NUCLEATED RBCS (test code = 1065) 0.0 /100WBC'S PLATELET COUNT (test code = 1015) 199 K/UL ABSOLUTE NEUTROPHILS (test c ode = 1066) 3.93 K/UL ABSOLUTE LYMPHOCYTES (test c ode = 1067) 1.93 K/UL ABSOLUTE MONOCYTES (test cod e = 1068) 0.52 K/UL ABSOLUTE EOSINOPHILS (test c ode = 1040) 0.10 K/UL ABSOLUTE BASOPHILS (test cod e = 1069) 0.04 K/UL ABS IMMATURE GRANULOCYTES (t est code = 1020) 0.02 K/UL ABS NUCLEATED RBCS (test cod e = 59360) 0.00 K/UL Teodoro CantuHEMOGLOBIN [id number] 00:00:00* Test Item Value Reference Range Interpretation Comme nts HEMOGLOBIN A1c (test code = 93561) 7.2 % Teodoro CantuLIPID [id number] 00:00:00* Test Item Value Reference Range Interpretation Comme nts CHOLESTEROL (test code = 2210) 134 MG/DL TRIGLYCERIDES (test code = 2232) 185 MG/DL HDL CHOLESTEROL (test code = 2220) 33 MG/DL CALC LDL CHOL (test code = 2237) 73 MG/DL RISK RATIO LDL/HDL (test cod e = 2238) 2.21 RATIO Teodoro CantuCOMPREHENSIVE METABOLIC [id number] 00:00:00* Test Item Value Reference Range Interpretation Comme nts GLUCOSE (test code = 2217) 94 MG/DL BUN (test code = 2208) 8 MG/DL CREATININE (test code = 2214) 0.58 MG/DL eGFR (2020 CKD-EPI) (test code = 93226) 117 ML/MIN/1.73 CALC BUN/CREAT (test code = 2235) 14 RATIO SODIUM (test code = 2231) 143 MEQ/L POTASSIUM (test code = 2228) 4.5 MEQ/L CHLORIDE (test code = 2215) 107 MEQ/L CARBON DIOXIDE (test code = 2206) 23 MEQ/L CALCIUM (test code = 2209) 9.3 MG/DL PROTEIN, TOTAL (test code = 2229) 6.7 G/DL ALBUMIN (test code = 2201) 4.5 G/DL CALC GLOBULIN (test code = 2240) 2.2 G/DL CALC A/G RATIO (test code = 2234) 2.0 RATIO BILIRUBIN, TOTAL (test code = 2207) 0.4 MG/DL ALKALINE PHOSPHATASE (test code = 2204) 137 U/L AST (test code = 2218) 12 U/L ALT (test code = 2219) 16 U/L Teodoro Dodge [facility] W/AUTO [id number] 00:00:00* Test Item Value Reference Range Interpretation Comme nts WBC (test code = 1001) 6.5 K/UL RBC (test code = 1002) 5.09 M/UL HEMOGLOBIN (test code = 1003) 12.5 G/DL HEMATOCRIT (test code = 1004) 39.0 % MCV (test code = 1005) 76.6 fL MCH (test code = 1006) 24.6 PG MCHC (test code = 1007) 32.1 G/DL RDW (test code = 1038) 15.8 % NEUTROPHILS (test code = 1008) 60.1 % LYMPHOCYTES (test code = 1010) 29.5 % MONOCYTES (test code = 1011) 8.0 % EOSINOPHILS (test code = 1012) 1.5 % BASOPHILS (test code = 1013) 0.6 % IMMATURE GRANULOCYTES (test code = 1036) 0.3 % NUCLEATED RBCS (test code = 1065) 0.0 /100WBC'S PLATELET COUNT (test code = 1015) 199 K/UL ABSOLUTE NEUTROPHILS (test c ode = 1066) 3.93 K/UL ABSOLUTE LYMPHOCYTES (test c ode = 1067) 1.93 K/UL ABSOLUTE MONOCYTES (test cod e = 1068) 0.52 K/UL ABSOLUTE EOSINOPHILS (test c ode = 1040) 0.10 K/UL ABSOLUTE BASOPHILS (test cod e = 1069) 0.04 K/UL ABS IMMATURE GRANULOCYTES (t est code = 1020) 0.02 K/UL ABS NUCLEATED RBCS (test cod e = 80456) 0.00 K/UL Teodoro CantuHEMOGLOBIN [id number] 00:00:00* Test Item Value Reference Range Interpretation Comme nts HEMOGLOBIN A1c (test code = 33732) 7.2 % Teodoro Dodge AustinHEMOGLOBIN [id number] 00:00:00* Test Item Value Reference Range Interpretation Comme nts HEMOGLOBIN A1c (test code = 66533) 7.2 % Teodoro Dodge AustinLIPID [id number] 00:00:00* Test Item Value Reference Range Interpretation Comme nts CHOLESTEROL (test code = 2210) 134 MG/DL TRIGLYCERIDES (test code = 2232) 185 MG/DL HDL CHOLESTEROL (test code = 2220) 33 MG/DL CALC LDL CHOL (test code = 2237) 73 MG/DL RISK RATIO LDL/HDL (test cod e = 2238) 2.21 RATIO Teodoro CantuCOMPREHENSIVE METABOLIC [id number] 00:00:00* Test Item Value Reference Range Interpretation Comme nts GLUCOSE (test code = 2217) 94 MG/DL BUN (test code = 2208) 8 MG/DL CREATININE (test code = 2214) 0.58 MG/DL eGFR (2020 CKD-EPI) (test code = 48037) 117 ML/MIN/1.73 CALC BUN/CREAT (test code = 2235) 14 RATIO SODIUM (test code = 2231) 143 MEQ/L POTASSIUM (test code = 2228) 4.5 MEQ/L CHLORIDE (test code = 2215) 107 MEQ/L CARBON DIOXIDE (test code = 2206) 23 MEQ/L CALCIUM (test code = 2209) 9.3 MG/DL PROTEIN, TOTAL (test code = 2229) 6.7 G/DL ALBUMIN (test code = 2201) 4.5 G/DL CALC GLOBULIN (test code = 2240) 2.2 G/DL CALC A/G RATIO (test code = 2234) 2.0 RATIO BILIRUBIN, TOTAL (test code = 2207) 0.4 MG/DL ALKALINE PHOSPHATASE (test code = 2204) 137 U/L AST (test code = 2218) 12 U/L ALT (test code = 2219) 16 U/L Teodoro CantuCBC W/AUTO [id number] 00:00:00* Test Item Value Reference Range Interpretation Comme nts WBC (test code = 1001) 6.5 K/UL RBC (test code = 1002) 5.09 M/UL HEMOGLOBIN (test code = 1003) 12.5 G/DL HEMATOCRIT (test code = 1004) 39.0 % MCV (test code = 1005) 76.6 fL MCH (test code = 1006) 24.6 PG MCHC (test code = 1007) 32.1 G/DL RDW (test code = 1038) 15.8 % NEUTROPHILS (test code = 1008) 60.1 % LYMPHOCYTES (test code = 1010) 29.5 % MONOCYTES (test code = 1011) 8.0 % EOSINOPHILS (test code = 1012) 1.5 % BASOPHILS (test code = 1013) 0.6 % IMMATURE GRANULOCYTES (test code = 1036) 0.3 % NUCLEATED RBCS (test code = 1065) 0.0 /100WBC'S PLATELET COUNT (test code = 1015) 199 K/UL ABSOLUTE NEUTROPHILS (test c ode = 1066) 3.93 K/UL ABSOLUTE LYMPHOCYTES (test c ode = 1067) 1.93 K/UL ABSOLUTE MONOCYTES (test cod e = 1068) 0.52 K/UL ABSOLUTE EOSINOPHILS (test c ode = 1040) 0.10 K/UL ABSOLUTE BASOPHILS (test cod e = 1069) 0.04 K/UL ABS IMMATURE GRANULOCYTES (t est code = 1020) 0.02 K/UL ABS NUCLEATED RBCS (test cod e = 85393) 0.00 K/UL Teodoro CantuHEMOGLOBIN [id number] 00:00:00* Test Item Value Reference Range Interpretation Comme nts HEMOGLOBIN A1c (test code = 23022) 7.2 % Teodoro CantuLIPID [id number] 00:00:00* Test Item Value Reference Range Interpretation Comme nts CHOLESTEROL (test code = 2210) 134 MG/DL TRIGLYCERIDES (test code = 2232) 185 MG/DL HDL CHOLESTEROL (test code = 2220) 33 MG/DL CALC LDL CHOL (test code = 2237) 73 MG/DL RISK RATIO LDL/HDL (test cod e = 2238) 2.21 RATIO Teodoro F AustinCOMPREHENSIVE METABOLIC [id number] 00:00:00* Test Item Value Reference Range Interpretation Comme nts GLUCOSE (test code = 2217) 94 MG/DL BUN (test code = 2208) 8 MG/DL CREATININE (test code = 2214) 0.58 MG/DL eGFR (2020 CKD-EPI) (test code = 83281) 117 ML/MIN/1.73 CALC BUN/CREAT (test code = 2235) 14 RATIO SODIUM (test code = 2231) 143 MEQ/L POTASSIUM (test code = 2228) 4.5 MEQ/L CHLORIDE (test code = 2215) 107 MEQ/L CARBON DIOXIDE (test code = 2206) 23 MEQ/L CALCIUM (test code = 2209) 9.3 MG/DL PROTEIN, TOTAL (test code = 2229) 6.7 G/DL ALBUMIN (test code = 2201) 4.5 G/DL CALC GLOBULIN (test code = 2240) 2.2 G/DL CALC A/G RATIO (test code = 2234) 2.0 RATIO BILIRUBIN, TOTAL (test code = 2207) 0.4 MG/DL ALKALINE PHOSPHATASE (test code = 2204) 137 U/L AST (test code = 2218) 12 U/L ALT (test code = 2219) 16 U/L Teodoro Dodge AustinLIPID [id number] 00:00:00* Test Item Value Reference Range Interpretation Comme nts CHOLESTEROL (test code = 2210) 134 MG/DL TRIGLYCERIDES (test code = 2232) 185 MG/DL HDL CHOLESTEROL (test code = 2220) 33 MG/DL CALC LDL CHOL (test code = 2237) 73 MG/DL RISK RATIO LDL/HDL (test cod e = 2238) 2.21 RATIO Teodoro Dodge AustinCOMPREHENSIVE METABOLIC [id number] 00:00:00* Test Item Value Reference Range Interpretation Comme nts GLUCOSE (test code = 2217) 94 MG/DL BUN (test code = 2208) 8 MG/DL CREATININE (test code = 2214) 0.58 MG/DL eGFR (2020 CKD-EPI) (test code = 92180) 117 ML/MIN/1.73 CALC BUN/CREAT (test code = 2235) 14 RATIO SODIUM (test code = 2231) 143 MEQ/L POTASSIUM (test code = 2228) 4.5 MEQ/L CHLORIDE (test code = 2215) 107 MEQ/L CARBON DIOXIDE (test code = 2206) 23 MEQ/L CALCIUM (test code = 2209) 9.3 MG/DL PROTEIN, TOTAL (test code = 2229) 6.7 G/DL ALBUMIN (test code = 2201) 4.5 G/DL CALC GLOBULIN (test code = 2240) 2.2 G/DL CALC A/G RATIO (test code = 2234) 2.0 RATIO BILIRUBIN, TOTAL (test code = 2207) 0.4 MG/DL ALKALINE PHOSPHATASE (test code = 2204) 137 U/L AST (test code = 2218) 12 U/L ALT (test code = 2219) 16 U/L [facility] [id number] 00:00:00* Test Item Value Reference Range Interpretation Comme nts WBC (test code = 1001) 6.5 K/UL RBC (test code = 1002) 5.09 M/UL HEMOGLOBIN (test code = 1003) 12.5 G/DL HEMATOCRIT (test code = 1004) 39.0 % MCV (test code = 1005) 76.6 fL MCH (test code = 1006) 24.6 PG MCHC (test code = 1007) 32.1 G/DL RDW (test code = 1038) 15.8 % NEUTROPHILS (test code = 1008) 60.1 % LYMPHOCYTES (test code = 1010) 29.5 % MONOCYTES (test code = 1011) 8.0 % EOSINOPHILS (test code = 1012) 1.5 % BASOPHILS (test code = 1013) 0.6 % IMMATURE GRANULOCYTES (test code = 1036) 0.3 % NUCLEATED RBCS (test code = 1065) 0.0 /100WBC'S PLATELET COUNT (test code = 1015) 199 K/UL ABSOLUTE NEUTROPHILS (test c ode = 1066) 3.93 K/UL ABSOLUTE LYMPHOCYTES (test c ode = 1067) 1.93 K/UL ABSOLUTE MONOCYTES (test cod e = 1068) 0.52 K/UL ABSOLUTE EOSINOPHILS (test c ode = 1040) 0.10 K/UL ABSOLUTE BASOPHILS (test cod e = 1069) 0.04 K/UL ABS IMMATURE GRANULOCYTES (t est code = 1020) 0.02 K/UL ABS NUCLEATED RBCS (test cod e = 42198) 0.00 K/UL Teodoro CantuHEMOGLOBIN [id number] 00:00:00* Test Item Value Reference Range Interpretation Comme bria HEMOGLOBIN A1c (test code = 06842) 7.2 % Teodoro CantuLIPID [id number] 00:00:00* Test Item Value Reference Range Interpretation Comme nts CHOLESTEROL (test code = 2210) 134 MG/DL TRIGLYCERIDES (test code = 2232) 185 MG/DL HDL CHOLESTEROL (test code = 2220) 33 MG/DL CALC LDL CHOL (test code = 2237) 73 MG/DL RISK RATIO LDL/HDL (test cod e = 2238) 2.21 RATIO Teodoro CantuCOMPREHENSIVE METABOLIC [id number] 00:00:00* Test Item Value Reference Range Interpretation Comme nts GLUCOSE (test code = 2217) 94 MG/DL BUN (test code = 2208) 8 MG/DL CREATININE (test code = 2214) 0.58 MG/DL eGFR (2020 CKD-EPI) (test code = 31440) 117 ML/MIN/1.73 CALC BUN/CREAT (test code = 2235) 14 RATIO SODIUM (test code = 2231) 143 MEQ/L POTASSIUM (test code = 2228) 4.5 MEQ/L CHLORIDE (test code = 2215) 107 MEQ/L CARBON DIOXIDE (test code = 2206) 23 MEQ/L CALCIUM (test code = 2209) 9.3 MG/DL PROTEIN, TOTAL (test code = 2229) 6.7 G/DL ALBUMIN (test code = 2201) 4.5 G/DL CALC GLOBULIN (test code = 2240) 2.2 G/DL CALC A/G RATIO (test code = 2234) 2.0 RATIO BILIRUBIN, TOTAL (test code = 2207) 0.4 MG/DL ALKALINE PHOSPHATASE (test code = 2204) 137 U/L AST (test code = 2218) 12 U/L ALT (test code = 2219) 16 U/L Teodoro CantuCBC W/AUTO [id number] 00:00:00* Test Item Value Reference Range Interpretation Comme nts WBC (test code = 1001) 6.5 K/UL RBC (test code = 1002) 5.09 M/UL HEMOGLOBIN (test code = 1003) 12.5 G/DL HEMATOCRIT (test code = 1004) 39.0 % MCV (test code = 1005) 76.6 fL MCH (test code = 1006) 24.6 PG MCHC (test code = 1007) 32.1 G/DL RDW (test code = 1038) 15.8 % NEUTROPHILS (test code = 1008) 60.1 % LYMPHOCYTES (test code = 1010) 29.5 % MONOCYTES (test code = 1011) 8.0 % EOSINOPHILS (test code = 1012) 1.5 % BASOPHILS (test code = 1013) 0.6 % IMMATURE GRANULOCYTES (test code = 1036) 0.3 % NUCLEATED RBCS (test code = 1065) 0.0 /100WBC'S PLATELET COUNT (test code = 1015) 199 K/UL ABSOLUTE NEUTROPHILS (test c ode = 1066) 3.93 K/UL ABSOLUTE LYMPHOCYTES (test c ode = 1067) 1.93 K/UL ABSOLUTE MONOCYTES (test cod e = 1068) 0.52 K/UL ABSOLUTE EOSINOPHILS (test c ode = 1040) 0.10 K/UL ABSOLUTE BASOPHILS (test cod e = 1069) 0.04 K/UL ABS IMMATURE GRANULOCYTES (t est code = 1020) 0.02 K/UL ABS NUCLEATED RBCS (test cod e = 11496) 0.00 K/UL Teodoro CantuHEMOGLOBIN [id number] 00:00:00* Test Item Value Reference Range Interpretation Comme nts HEMOGLOBIN A1c (test code = 52453) 7.2 % Teodoro CantuLIPID [id number] 00:00:00* Test Item Value Reference Range Interpretation Comme nts CHOLESTEROL (test code = 2210) 134 MG/DL TRIGLYCERIDES (test code = 2232) 185 MG/DL HDL CHOLESTEROL (test code = 2220) 33 MG/DL CALC LDL CHOL (test code = 2237) 73 MG/DL RISK RATIO LDL/HDL (test cod e = 2238) 2.21 RATIO Teodoro CantuCOMPREHENSIVE METABOLIC [id number] 00:00:00* Test Item Value Reference Range Interpretation Comme nts GLUCOSE (test code = 2217) 94 MG/DL BUN (test code = 2208) 8 MG/DL CREATININE (test code = 2214) 0.58 MG/DL eGFR (2020 CKD-EPI) (test code = 36555) 117 ML/MIN/1.73 CALC BUN/CREAT (test code = 2235) 14 RATIO SODIUM (test code = 2231) 143 MEQ/L POTASSIUM (test code = 2228) 4.5 MEQ/L CHLORIDE (test code = 2215) 107 MEQ/L CARBON DIOXIDE (test code = 2206) 23 MEQ/L CALCIUM (test code = 2209) 9.3 MG/DL PROTEIN, TOTAL (test code = 2229) 6.7 G/DL ALBUMIN (test code = 2201) 4.5 G/DL CALC GLOBULIN (test code = 2240) 2.2 G/DL CALC A/G RATIO (test code = 2234) 2.0 RATIO BILIRUBIN, TOTAL (test code = 2207) 0.4 MG/DL ALKALINE PHOSPHATASE (test code = 2204) 137 U/L AST (test code = 2218) 12 U/L ALT (test code = 2219) 16 U/L [facility] [id number] 00:00:00* Test Item Value Reference Range Interpretation Comme nts WBC (test code = 1001) 6.5 K/UL RBC (test code = 1002) 5.09 M/UL HEMOGLOBIN (test code = 1003) 12.5 G/DL HEMATOCRIT (test code = 1004) 39.0 % MCV (test code = 1005) 76.6 fL MCH (test code = 1006) 24.6 PG MCHC (test code = 1007) 32.1 G/DL RDW (test code = 1038) 15.8 % NEUTROPHILS (test code = 1008) 60.1 % LYMPHOCYTES (test code = 1010) 29.5 % MONOCYTES (test code = 1011) 8.0 % EOSINOPHILS (test code = 1012) 1.5 % BASOPHILS (test code = 1013) 0.6 % IMMATURE GRANULOCYTES (test code = 1036) 0.3 % NUCLEATED RBCS (test code = 1065) 0.0 /100WBC'S PLATELET COUNT (test code = 1015) 199 K/UL ABSOLUTE NEUTROPHILS (test c ode = 1066) 3.93 K/UL ABSOLUTE LYMPHOCYTES (test c ode = 1067) 1.93 K/UL ABSOLUTE MONOCYTES (test cod e = 1068) 0.52 K/UL ABSOLUTE EOSINOPHILS (test c ode = 1040) 0.10 K/UL ABSOLUTE BASOPHILS (test cod e = 1069) 0.04 K/UL ABS IMMATURE GRANULOCYTES (t est code = 1020) 0.02 K/UL ABS NUCLEATED RBCS (test cod e = 64543) 0.00 K/UL Teodoro CantuHEMOGLOBIN [id number] 00:00:00* Test Item Value Reference Range Interpretation Comme nts HEMOGLOBIN A1c (test code = 99223) 7.2 % Teodoro CantuLIPID [id number] 00:00:00* Test Item Value Reference Range Interpretation Comme nts CHOLESTEROL (test code = 2210) 134 MG/DL TRIGLYCERIDES (test code = 2232) 185 MG/DL HDL CHOLESTEROL (test code = 2220) 33 MG/DL CALC LDL CHOL (test code = 2237) 73 MG/DL RISK RATIO LDL/HDL (test cod e = 2238) 2.21 RATIO Teodoro CantuCOMPREHENSIVE METABOLIC [id number] 00:00:00* Test Item Value Reference Range Interpretation Comme nts GLUCOSE (test code = 2217) 94 MG/DL BUN (test code = 2208) 8 MG/DL CREATININE (test code = 2214) 0.58 MG/DL eGFR (2020 CKD-EPI) (test code = 62991) 117 ML/MIN/1.73 CALC BUN/CREAT (test code = 2235) 14 RATIO SODIUM (test code = 2231) 143 MEQ/L POTASSIUM (test code = 2228) 4.5 MEQ/L CHLORIDE (test code = 2215) 107 MEQ/L CARBON DIOXIDE (test code = 2206) 23 MEQ/L CALCIUM (test code = 2209) 9.3 MG/DL PROTEIN, TOTAL (test code = 2229) 6.7 G/DL ALBUMIN (test code = 2201) 4.5 G/DL CALC GLOBULIN (test code = 2240) 2.2 G/DL CALC A/G RATIO (test code = 2234) 2.0 RATIO BILIRUBIN, TOTAL (test code = 2207) 0.4 MG/DL ALKALINE PHOSPHATASE (test code = 2204) 137 U/L AST (test code = 2218) 12 U/L ALT (test code = 2219) 16 U/L Teodoro CantuCBC W/AUTO [id number] 00:00:00* Test Item Value Reference Range Interpretation Comme nts WBC (test code = 1001) 6.5 K/UL RBC (test code = 1002) 5.09 M/UL HEMOGLOBIN (test code = 1003) 12.5 G/DL HEMATOCRIT (test code = 1004) 39.0 % MCV (test code = 1005) 76.6 fL MCH (test code = 1006) 24.6 PG MCHC (test code = 1007) 32.1 G/DL RDW (test code = 1038) 15.8 % NEUTROPHILS (test code = 1008) 60.1 % LYMPHOCYTES (test code = 1010) 29.5 % MONOCYTES (test code = 1011) 8.0 % EOSINOPHILS (test code = 1012) 1.5 % BASOPHILS (test code = 1013) 0.6 % IMMATURE GRANULOCYTES (test code = 1036) 0.3 % NUCLEATED RBCS (test code = 1065) 0.0 /100WBC'S PLATELET COUNT (test code = 1015) 199 K/UL ABSOLUTE NEUTROPHILS (test c ode = 1066) 3.93 K/UL ABSOLUTE LYMPHOCYTES (test c ode = 1067) 1.93 K/UL ABSOLUTE MONOCYTES (test cod e = 1068) 0.52 K/UL ABSOLUTE EOSINOPHILS (test c ode = 1040) 0.10 K/UL ABSOLUTE BASOPHILS (test cod e = 1069) 0.04 K/UL ABS IMMATURE GRANULOCYTES (t est code = 1020) 0.02 K/UL ABS NUCLEATED RBCS (test cod e = 71233) 0.00 K/UL Teodoro CantuHEMOGLOBIN [id number] 00:00:00* Test Item Value Reference Range Interpretation Comme nts HEMOGLOBIN A1c (test code = 53095) 7.2 % Teodoro CantuLIPID [id number] 00:00:00* Test Item Value Reference Range Interpretation Comme nts CHOLESTEROL (test code = 2210) 134 MG/DL TRIGLYCERIDES (test code = 2232) 185 MG/DL HDL CHOLESTEROL (test code = 2220) 33 MG/DL CALC LDL CHOL (test code = 2237) 73 MG/DL RISK RATIO LDL/HDL (test cod e = 2238) 2.21 RATIO Teodoro CantuCOMPREHENSIVE METABOLIC [id number] 00:00:00* Test Item Value Reference Range Interpretation Comme nts GLUCOSE (test code = 2217) 94 MG/DL BUN (test code = 2208) 8 MG/DL CREATININE (test code = 2214) 0.58 MG/DL eGFR (2020 CKD-EPI) (test code = 36126) 117 ML/MIN/1.73 CALC BUN/CREAT (test code = 2235) 14 RATIO SODIUM (test code = 2231) 143 MEQ/L POTASSIUM (test code = 2228) 4.5 MEQ/L CHLORIDE (test code = 2215) 107 MEQ/L CARBON DIOXIDE (test code = 2206) 23 MEQ/L CALCIUM (test code = 2209) 9.3 MG/DL PROTEIN, TOTAL (test code = 2229) 6.7 G/DL ALBUMIN (test code = 2201) 4.5 G/DL CALC GLOBULIN (test code = 2240) 2.2 G/DL CALC A/G RATIO (test code = 2234) 2.0 RATIO BILIRUBIN, TOTAL (test code = 2207) 0.4 MG/DL ALKALINE PHOSPHATASE (test code = 2204) 137 U/L AST (test code = 2218) 12 U/L ALT (test code = 2219) 16 U/L Teodoro Dodge PepeCBC W/AUTO [id number] 00:00:00* Test Item Value Reference Range Interpretation Comme nts WBC (test code = 1001) 6.5 K/UL RBC (test code = 1002) 5.09 M/UL HEMOGLOBIN (test code = 1003) 12.5 G/DL HEMATOCRIT (test code = 1004) 39.0 % MCV (test code = 1005) 76.6 fL MCH (test code = 1006) 24.6 PG MCHC (test code = 1007) 32.1 G/DL RDW (test code = 1038) 15.8 % NEUTROPHILS (test code = 1008) 60.1 % LYMPHOCYTES (test code = 1010) 29.5 % MONOCYTES (test code = 1011) 8.0 % EOSINOPHILS (test code = 1012) 1.5 % BASOPHILS (test code = 1013) 0.6 % IMMATURE GRANULOCYTES (test code = 1036) 0.3 % NUCLEATED RBCS (test code = 1065) 0.0 /100WBC'S PLATELET COUNT (test code = 1015) 199 K/UL ABSOLUTE NEUTROPHILS (test c ode = 1066) 3.93 K/UL ABSOLUTE LYMPHOCYTES (test c ode = 1067) 1.93 K/UL ABSOLUTE MONOCYTES (test cod e = 1068) 0.52 K/UL ABSOLUTE EOSINOPHILS (test c ode = 1040) 0.10 K/UL ABSOLUTE BASOPHILS (test cod e = 1069) 0.04 K/UL ABS IMMATURE GRANULOCYTES (t est code = 1020) 0.02 K/UL ABS NUCLEATED RBCS (test cod e = 88777) 0.00 K/UL Teodoro CantuHEMOGLOBIN [id number] 00:00:00* Test Item Value Reference Range Interpretation Comme nts HEMOGLOBIN A1c (test code = 87732) 7.2 % Teodoro CantuLIPID [id number] 00:00:00* Test Item Value Reference Range Interpretation Comme nts CHOLESTEROL (test code = 2210) 134 MG/DL TRIGLYCERIDES (test code = 2232) 185 MG/DL HDL CHOLESTEROL (test code = 2220) 33 MG/DL CALC LDL CHOL (test code = 2237) 73 MG/DL RISK RATIO LDL/HDL (test cod e = 2238) 2.21 RATIO Teodoro CantuCOMPREHENSIVE METABOLIC [id number] 00:00:00* Test Item Value Reference Range Interpretation Comme nts GLUCOSE (test code = 2217) 94 MG/DL BUN (test code = 2208) 8 MG/DL CREATININE (test code = 2214) 0.58 MG/DL eGFR (2020 CKD-EPI) (test code = 83502) 117 ML/MIN/1.73 CALC BUN/CREAT (test code = 2235) 14 RATIO SODIUM (test code = 2231) 143 MEQ/L POTASSIUM (test code = 2228) 4.5 MEQ/L CHLORIDE (test code = 2215) 107 MEQ/L CARBON DIOXIDE (test code = 2206) 23 MEQ/L CALCIUM (test code = 2209) 9.3 MG/DL PROTEIN, TOTAL (test code = 2229) 6.7 G/DL ALBUMIN (test code = 2201) 4.5 G/DL CALC GLOBULIN (test code = 2240) 2.2 G/DL CALC A/G RATIO (test code = 2234) 2.0 RATIO BILIRUBIN, TOTAL (test code = 2207) 0.4 MG/DL ALKALINE PHOSPHATASE (test code = 2204) 137 U/L AST (test code = 2218) 12 U/L ALT (test code = 2219) 16 U/L Teodoro CantuCBC W/AUTO [id number] 00:00:00* Test Item Value Reference Range Interpretation Comme nts WBC (test code = 1001) 6.5 K/UL RBC (test code = 1002) 5.09 M/UL HEMOGLOBIN (test code = 1003) 12.5 G/DL HEMATOCRIT (test code = 1004) 39.0 % MCV (test code = 1005) 76.6 fL MCH (test code = 1006) 24.6 PG MCHC (test code = 1007) 32.1 G/DL RDW (test code = 1038) 15.8 % NEUTROPHILS (test code = 1008) 60.1 % LYMPHOCYTES (test code = 1010) 29.5 % MONOCYTES (test code = 1011) 8.0 % EOSINOPHILS (test code = 1012) 1.5 % BASOPHILS (test code = 1013) 0.6 % IMMATURE GRANULOCYTES (test code = 1036) 0.3 % NUCLEATED RBCS (test code = 1065) 0.0 /100WBC'S PLATELET COUNT (test code = 1015) 199 K/UL ABSOLUTE NEUTROPHILS (test c ode = 1066) 3.93 K/UL ABSOLUTE LYMPHOCYTES (test c ode = 1067) 1.93 K/UL ABSOLUTE MONOCYTES (test cod e = 1068) 0.52 K/UL ABSOLUTE EOSINOPHILS (test c ode = 1040) 0.10 K/UL ABSOLUTE BASOPHILS (test cod e = 1069) 0.04 K/UL ABS IMMATURE GRANULOCYTES (t est code = 1020) 0.02 K/UL ABS NUCLEATED RBCS (test cod e = 09897) 0.00 K/UL Teodoro CantuHEMOGLOBIN [id number] 00:00:00* Test Item Value Reference Range Interpretation Comme nts HEMOGLOBIN A1c (test code = 69181) 7.2 % Teodoro CantuLIPID [id number] 00:00:00* Test Item Value Reference Range Interpretation Comme nts CHOLESTEROL (test code = 2210) 134 MG/DL TRIGLYCERIDES (test code = 2232) 185 MG/DL HDL CHOLESTEROL (test code = 2220) 33 MG/DL CALC LDL CHOL (test code = 2237) 73 MG/DL RISK RATIO LDL/HDL (test cod e = 2238) 2.21 RATIO Teodoro CantuCOMPREHENSIVE METABOLIC [id number] 00:00:00* Test Item Value Reference Range Interpretation Comme nts GLUCOSE (test code = 2217) 94 MG/DL BUN (test code = 2208) 8 MG/DL CREATININE (test code = 2214) 0.58 MG/DL eGFR (2020 CKD-EPI) (test code = 51492) 117 ML/MIN/1.73 CALC BUN/CREAT (test code = 2235) 14 RATIO SODIUM (test code = 2231) 143 MEQ/L POTASSIUM (test code = 2228) 4.5 MEQ/L CHLORIDE (test code = 2215) 107 MEQ/L CARBON DIOXIDE (test code = 2206) 23 MEQ/L CALCIUM (test code = 2209) 9.3 MG/DL PROTEIN, TOTAL (test code = 2229) 6.7 G/DL ALBUMIN (test code = 2201) 4.5 G/DL CALC GLOBULIN (test code = 2240) 2.2 G/DL CALC A/G RATIO (test code = 2234) 2.0 RATIO BILIRUBIN, TOTAL (test code = 2207) 0.4 MG/DL ALKALINE PHOSPHATASE (test code = 2204) 137 U/L AST (test code = 2218) 12 U/L ALT (test code = 2219) 16 U/L Teodoro CantuLIPID [id number] 09:38:49* Test Item Value Reference Range Interpretation Comme nts CHOLESTEROL (test code = 2210) 104 MG/DL <200 TRIGLYCERIDES (test code = 2232) 142 MG/DL <150 HDL CHOLESTEROL (test code = 2220) 30 MG/DL >39 L CALC LDL CHOL (test code = 2237) 51 MG/DL <100 NOTE: CALCULATED LDL IS BASED ON MIHAI-GONSALVES METHOD WHICHINCLUDES ADJUSTABLE TRIGLYCERIDE:VLDL CHOLESTEROL RATIO.THIS FACTOR VARIES BY MEASURED TRIGLYCERIDE AND NON-HDLCHOLESTEROL CONCENTRATIONS WITH INCREASED CALCULATED LDL SEENIN HIGHER TRIGLYCERIDE OR LOWER NON-HDL SPECIMENS. FOR MOREINFORMATION, SEE CLIENT ANNOUNCEMENT AT [email or web address] RATIO LDL/HDL (test code = 2238) 1.70 RATIO <3.55 HEMOGLOBIN [id number] 03:52:00* Test Item Value Reference Range Interpretation Comme nts HEMOGLOBIN A1c (test code = 98948) 6.8 % 4.2-5.6 H [employer] GUIDELINES FOR HGB A1C: PREDIABETES/INCREASED RISK . . . . . . . 5.7-6.4% DIAGNOSIS OF DIABETES . . . . . . . . . >=6.5% WITH CONFIRMATION OR APPROPRIATE SYMPTOMS NOTE: ASSAY MAY BE AFFECTED BY HEMOGLOBINOPATHIES (SICKLE CELL ANEMIA, S-C DISEASE, OTHERS) OR ARTIFICIALLY LOWERED BY DECREASED RED CELL SURVIVAL (HEMOLYTIC ANEMIAS, BLOOD LOSS, ETC.). CONSIDER ALTERNATE TESTING OR LABORATORY CONSULTATION. [facility] has important pathology staff changes effective 01/29/2023. New pathology staff will provide uninterrupted, excellent patient care and clinical consultation. See URL: [email or web address] UNLESS OTHERWISE INDICATED, ALL TESTING PERFORMED AT [facility] [address] [place] [id number] DOPE WORKER: HUNG MIRANDA M.D. CLIA NUMBER [id number] [facility] [place]. [id number] LIPID [id number] 00:00:00* Test Item Value Reference Range Interpretation Comme nts CHOLESTEROL (test code = 2210) 104 MG/DL TRIGLYCERIDES (test code = 2232) 142 MG/DL HDL CHOLESTEROL (test code = 2220) 30 MG/DL CALC LDL CHOL (test code = 2237) 51 MG/DL RISK RATIO LDL/HDL (test cod e = 2238) 1.70 RATIO Teodoro CantuHEMOGLOBIN [id number] 00:00:00* Test Item Value Reference Range Interpretation Comme nts HEMOGLOBIN A1c (test code = 30026) 6.8 % Teodoro Dodge AustinLIPID [id number] 00:00:00* Test Item Value Reference Range Interpretation Comme nts CHOLESTEROL (test code = 2210) 104 MG/DL TRIGLYCERIDES (test code = 2232) 142 MG/DL HDL CHOLESTEROL (test code = 2220) 30 MG/DL CALC LDL CHOL (test code = 2237) 51 MG/DL RISK RATIO LDL/HDL (test cod e = 2238) 1.70 RATIO [facility] Dodge AustinLIPID [id number] 00:00:00* Test Item Value Reference Range Interpretation Comme nts CHOLESTEROL (test code = 2210) 104 MG/DL TRIGLYCERIDES (test code = 2232) 142 MG/DL HDL CHOLESTEROL (test code = 2220) 30 MG/DL CALC LDL CHOL (test code = 2237) 51 MG/DL RISK RATIO LDL/HDL (test cod e = 2238) 1.70 RATIO [facility] AustinHEMOGLOBIN [id number] 00:00:00* Test Item Value Reference Range Interpretation Comme nts HEMOGLOBIN A1c (test code = 53824) 6.8 % [facility] AustinHEMOGLOBIN [id number] 00:00:00* Test Item Value Reference Range Interpretation Comme nts HEMOGLOBIN A1c (test code = 98569) 6.8 % [facility] AustinLIPID [id number] 00:00:00* Test Item Value Reference Range Interpretation Comme nts CHOLESTEROL (test code = 2210) 104 MG/DL TRIGLYCERIDES (test code = 2232) 142 MG/DL HDL CHOLESTEROL (test code = 2220) 30 MG/DL CALC LDL CHOL (test code = 2237) 51 MG/DL RISK RATIO LDL/HDL (test cod e = 2238) 1.70 RATIO [facility] AustinHEMOGLOBIN [id number] 00:00:00* Test Item Value Reference Range Interpretation Comme nts HEMOGLOBIN A1c (test code = 66298) 6.8 % [facility] AustinLIPID [id number] 00:00:00* Test Item Value Reference Range Interpretation Comme nts CHOLESTEROL (test code = 2210) 104 MG/DL TRIGLYCERIDES (test code = 2232) 142 MG/DL HDL CHOLESTEROL (test code = 2220) 30 MG/DL CALC LDL CHOL (test code = 2237) 51 MG/DL RISK RATIO LDL/HDL (test cod e = 2238) 1.70 RATIO [facility] AustinHEMOGLOBIN [id number] 00:00:00* Test Item Value Reference Range Interpretation Comme nts HEMOGLOBIN A1c (test code = 76953) 6.8 % [facility] [employer] AustinLIPID [id number] 00:00:00* Test Item Value Reference Range Interpretation Comme nts CHOLESTEROL (test code = 2210) 104 MG/DL TRIGLYCERIDES (test code = 2232) 142 MG/DL HDL CHOLESTEROL (test code = 2220) 30 MG/DL CALC LDL CHOL (test code = 2237) 51 MG/DL RISK RATIO LDL/HDL (test cod e = 2238) 1.70 RATIO Teodoro CantuHEMOGLOBIN [id number] 00:00:00* Test Item Value Reference Range Interpretation Comme nts HEMOGLOBIN A1c (test code = 99600) 6.8 % [facility] [employer] AustinLIPID [id number] 00:00:00* Test Item Value Reference Range Interpretation Comme nts CHOLESTEROL (test code = 2210) 104 MG/DL TRIGLYCERIDES (test code = 2232) 142 MG/DL HDL CHOLESTEROL (test code = 2220) 30 MG/DL CALC LDL CHOL (test code = 2237) 51 MG/DL RISK RATIO LDL/HDL (test cod e = 2238) 1.70 RATIO [facility] AustinHEMOGLOBIN [id number] 00:00:00* Test Item Value Reference Range Interpretation Comme nts HEMOGLOBIN A1c (test code = 86669) 6.8 % [facility] [employer] AustinLIPID [id number] 00:00:00* Test Item Value Reference Range Interpretation Comme nts CHOLESTEROL (test code = 2210) 104 MG/DL TRIGLYCERIDES (test code = 2232) 142 MG/DL HDL CHOLESTEROL (test code = 2220) 30 MG/DL CALC LDL CHOL (test code = 2237) 51 MG/DL RISK RATIO LDL/HDL (test cod e = 2238) 1.70 RATIO [facility] [employer] AustinHEMOGLOBIN [id number] 00:00:00* Test Item Value Reference Range Interpretation Comme nts HEMOGLOBIN A1c (test code = 14258) 6.8 % [facility] [employer] AustinLIPID [id number] 00:00:00* Test Item Value Reference Range Interpretation Comme nts CHOLESTEROL (test code = 2210) 104 MG/DL TRIGLYCERIDES (test code = 2232) 142 MG/DL HDL CHOLESTEROL (test code = 2220) 30 MG/DL CALC LDL CHOL (test code = 2237) 51 MG/DL RISK RATIO LDL/HDL (test cod e = 2238) 1.70 RATIO [facility] [employer] AustinHEMOGLOBIN [id number] 00:00:00* Test Item Value Reference Range Interpretation Comme nts HEMOGLOBIN A1c (test code = 49222) 6.8 % Teodoro CantuLIPID [id number] 00:00:00* Test Item Value Reference Range Interpretation Comme nts CHOLESTEROL (test code = 2210) 104 MG/DL TRIGLYCERIDES (test code = 2232) 142 MG/DL HDL CHOLESTEROL (test code = 2220) 30 MG/DL CALC LDL CHOL (test code = 2237) 51 MG/DL RISK RATIO LDL/HDL (test cod e = 2238) 1.70 RATIO Teodoro CantuHEMOGLOBIN [id number] 00:00:00* Test Item Value Reference Range Interpretation Comme nts HEMOGLOBIN A1c (test code = 10257) 6.8 % Teodoro CantuLIPID [id number] 00:00:00* Test Item Value Reference Range Interpretation Comme nts CHOLESTEROL (test code = 2210) 104 MG/DL TRIGLYCERIDES (test code = 2232) 142 MG/DL HDL CHOLESTEROL (test code = 2220) 30 MG/DL CALC LDL CHOL (test code = 2237) 51 MG/DL RISK RATIO LDL/HDL (test cod e = 2238) 1.70 RATIO Teodoro CantuHEMOGLOBIN [id number] 00:00:00* Test Item Value Reference Range Interpretation Comme bria HEMOGLOBIN A1c (test code = 21692) 6.8 % Teodoro CantuVITAMIN [id number] 06:51:56* Test Item Value Reference Range Interpretation Comme bria VITAMIN B-12 (test code = 2840) 251 PG/ML 200-950 PSA, [id number] 06:51:56* Test Item Value Reference Range Interpretation Comme bria PSA, TOTAL (test code = 2606) 0.16 NG/ML See_Comment NOTE: Methodolog y is [employer] Electrochemiluminescence Immunoassay traceable to WHO reference standard 96/760. [Automated message] The system which generated this result transmitted reference range: <=4.00. The reference range was not used to interpret this result as normal/abnormal. VITAMIN D, 25 [id number] 04:30:48* Test Item Value Reference Range Interpretation Comme [facility] VITAMIN D, 25 OH (test code = 4958) 29 NG/ML SEE BELOW L NOTE: 25-HYDR OXYVITAMIN D ASSAY INCLUDES 25-HYDROXYVITAMIN D2 AND D3. METHODOLOGY IS CHEMILUMINESCENT IMMUNOASSAY. INTERPRETIVE RANGES PEDIATRIC (<17 YEARS) . . . . . . . . . . . NG/ML 20-100ADULT: INSUFFICIENT . . . . . . . . . . . . . . NG/ML <20 SUBOPTIMAL . . . . . . . . . . . . . . . NG/ML 20-29 OPTIMAL . . . . . . . . . . . . . . . . . NG/ML 30-100 [id number] 03:39:41* Test Item Value Reference Range Interpretation Comme nts TESTOSTERONE (test code = 2830) 139 NG/DL 300-890 L UNLESS OTHERWISE INDICATED, ALL TESTING PERFORMED [facility] [address] [place] [id number] DOPE WORKER: YESSI SHETH M.D. [place] NUMBER [id number] [facility]. [id number] HEMOGLOBIN [id number] 03:22:32* Test Item Value Reference Range Interpretation Comme nts HEMOGLOBIN A1c (test code = 30692) 6.7 % 4.2-5.6 H [employer] GUIDELINES FOR HGB A1C: PREDIABETES/INCREASED RISK . . . . . . . 5.7-6.4% DIAGNOSIS OF DIABETES . . . . . . . . . >=6.5% WITH CONFIRMATION OR APPROPRIATE SYMPTOMS NOTE: ASSAY MAY BE AFFECTED BY HEMOGLOBINOPATHIES (SICKLE CELL ANEMIA, S-C DISEASE, OTHERS) OR ARTIFICIALLY LOWERED BY DECREASED RED CELL SURVIVAL (HEMOLYTIC ANEMIAS, BLOOD LOSS, ETC.). CONSIDER ALTERNATE TESTING OR LABORATORY CONSULTATION. CBC W/AUTO DIFF WITH [id number] 03:14:49* Test Item Value Reference Range Interpretation Comme nts WBC (test code = 1001) 5.6 K/UL 3.5-11.0 RBC (test code = 1002) 5.31 M/UL 4.50-6.10 HEMOGLOBIN (test code = 1003) 13.6 G/DL 13.5-17.0 HEMATOCRIT (test code = 1004) 40.8 % 40.0-51.0 MCV (test code = 1005) 76.8 fL 80.0-99.0 L MCH (test code = 1006) 25.6 PG 25.0-33.0 MCHC (test code = 1007) 33.3 G/DL 31.0-36.0 RDW (test code = 1038) 15.7 % 11.5-15.0 H NEUTROPHILS (test code = 1008) 59.9 % LYMPHOCYTES (test code = 1010) 28.1 % MONOCYTES (test code = 1011) 8.1 % EOSINOPHILS (test code = 1012) 3.0 % BASOPHILS (test code = 1013) 0.5 % IMMATURE GRANULOCYTES (test code = 1036) 0.4 % NUCLEATED RBCS (test code = 1065) 0.0 /100 WBC'S See_Comment [Automated messa ge] The system which generated this result transmitted reference range: 0.0. The reference range was not used to interpret this result as normal/abnormal. PLATELET COUNT (test code = 1015) 192 K/UL 130-400 ABSOLUTE NEUTROPHILS (test code = 1066) 3.35 K/UL 1.50-7.50 ABSOLUTE LYMPHOCYTES (test code = 1067) 1.57 K/UL 1.00-4.00 ABSOLUTE MONOCYTES (test code = 1068) 0.45 K/UL 0.20-1.00 ABSOLUTE EOSINOPHILS (test code = 1040) 0.17 K/UL 0.00-0.50 ABSOLUTE BASOPHILS (test code = 1069) 0.03 K/UL 0.00-0.20 ABS IMMATURE GRANULOCYTES (test code = 1020) 0.02 K/UL 0.00-0.10 ABS NUCLEATED RBCS (test code = 23321) 0.00 K/UL 0.00-0.11 COMPREHENSIVE METABOLIC [id number] 02:51:11* Test Item Value Reference Range Interpretation Comme nts GLUCOSE (test code = 2217) 154 MG/DL 70-99 H BUN (test code = 2208) 11 MG/DL 6-20 CREATININE (test code = 2214) 0.64 MG/DL 0.80-1.40 L eGFR (2020 CKD-EPI) (test code = 82243) 115 ML/MIN/1.73 >60 CALC BUN/CREAT (test code = 2235) 17 RATIO 6-28 SODIUM (test code = 223) 143 MEQ/L 133-146 POTASSIUM (test code = 2228) 4.2 MEQ/L 3.5-5.4 CHLORIDE (test code = 2215) 108 MEQ/L 95-107 H CARBON DIOXIDE (test code = 2205) 21 MEQ/L 19-31 CALCIUM (test code = 2208) 8.9 MG/DL 8.5-10.5 PROTEIN, TOTAL (test code = 2228) 6.9 G/DL 6.1-8.3 ALBUMIN (test code = 1) 4.6 G/DL 3.5-5.2 CALC GLOBULIN (test code = 0) 2.3 G/DL 1.9-3.7 CALC A/G RATIO (test code = 2233) 2.0 RATIO 1.0-2.6 BILIRUBIN, TOTAL (test code = 2206) 0.3 MG/DL See_Comment [Automated me ssage] The system which generated this result transmitted reference range: <=1.2. The reference range was not used to interpret this result as normal/abnormal. ALKALINE PHOSPHATASE (test code = 2203) 97 U/L 40-121 AST (test code = 2217) 10 U/L 9-50 ALT (test code = 2218) 18 U/L 5-50 LIPID [id number] 02:51:11* Test Item Value Reference Range Interpretation Comme nts CHOLESTEROL (test code = 0) 123 MG/DL <200 TRIGLYCERIDES (test code = 2231) 141 MG/DL <150 HDL CHOLESTEROL (test code = 0) 33 MG/DL >39 L CALC LDL CHOL (test code = 2236) 68 MG/DL <100 NOTE: CALCULATED LDL IS BASED ON MIHAI-GONSALVES METHOD WHICHINCLUDES ADJUSTABLE TRIGLYCERIDE:VLDL CHOLESTEROL RATIO.THIS FACTOR VARIES BY MEASURED TRIGLYCERIDE AND NON-HDLCHOLESTEROL CONCENTRATIONS WITH INCREASED CALCULATED LDL SEENIN HIGHER TRIGLYCERIDE OR LOWER NON-HDL SPECIMENS. FOR MOREINFORMATION, SEE CLIENT ANNOUNCEMENT AT [email or web address] RISK RATIO LDL/HDL (test code = 2237) 2.06 RATIO <3.55 VITAMIN D, 25 [id number] 00:00:00* Test Item Value Reference Range Interpretation Comme [facility] VITAMIN D, 25 OH (test code = 4958) 29 NG/ML Teodoro CantuVITAMIN [id number] 00:00:00* Test Item Value Reference Range Interpretation Comme [facility] VITAMIN B-12 (test code = 2840) 251 PG/ML Teodoro CantuPSA, [id number] 00:00:00* Test Item Value Reference Range Interpretation Comme nts PSA, TOTAL (test code = 2606) 0.16 NG/ML Teodoro [id number] 00:00:00* Test Item Value Reference Range Interpretation Comme nts TESTOSTERONE (test code = 2830) 139 NG/DL Teodoro CantuHEMOGLOBIN [id number] 00:00:00* Test Item Value Reference Range Interpretation Comme nts HEMOGLOBIN A1c (test code = 70383) 6.7 % Teodoro CantuCBC W/AUTO [id number] 00:00:00* Test Item Value Reference Range Interpretation Comme nts WBC (test code = 1001) 5.6 K/UL [...] = 1013) 0.5 % IMMATURE GRANULOCYTES (test code = 1036) 0.4 % NUCLEATED RBCS (test code = 1065) 0.0 /100WBC'S PLATELET COUNT (test code = 1015) 192 K/UL ABSOLUTE NEUTROPHILS (test c ode = 1066) 3.35 K/UL ABSOLUTE LYMPHOCYTES (test c ode = 1067) 1.57 K/UL ABSOLUTE MONOCYTES (test cod e = 1068) 0.45 K/UL ABSOLUTE EOSINOPHILS (test c ode = 1040) 0.17 K/UL ABSOLUTE BASOPHILS (test cod e = 1069) 0.03 K/UL ABS IMMATURE GRANULOCYTES (t est code = 1020) 0.02 K/UL ABS NUCLEATED RBCS (test cod e = 56621) 0.00 K/UL Teodoro CantuCOMPREHENSIVE METABOLIC [id number] 00:00:00* Test Item Value Reference Range Interpretation Comme nts GLUCOSE (test code = 2217) 154 MG/DL BUN (test code = 2208) 11 MG/DL CREATININE (test code = 2214) 0.64 MG/DL eGFR (2020 CKD-EPI) (test code = 97457) 115 ML/MIN/1.73 CALC BUN/CREAT (test code = 2235) 17 RATIO SODIUM (test code = 2231) 143 MEQ/L POTASSIUM (test code = 2228) 4.2 MEQ/L CHLORIDE (test code = 2215) 108 MEQ/L CARBON DIOXIDE (test code = 2206) 21 MEQ/L CALCIUM (test code = 2209) 8.9 MG/DL PROTEIN, TOTAL (test code = 2229) 6.9 G/DL ALBUMIN (test code = 2201) 4.6 G/DL CALC GLOBULIN (test code = 2240) 2.3 G/DL CALC A/G RATIO (test code = 2234) 2.0 RATIO BILIRUBIN, TOTAL (test code = 2207) 0.3 MG/DL ALKALINE PHOSPHATASE (test code = 2204) 97 U/L AST (test code = 2218) 10 U/L ALT (test code = 2219) 18 U/L Teodoro CantuLIPID [id number] 00:00:00* Test Item Value Reference Range Interpretation Comme nts CHOLESTEROL (test code = 2210) 123 MG/DL TRIGLYCERIDES (test code = 2232) 141 MG/DL HDL CHOLESTEROL (test code = 2220) 33 MG/DL CALC LDL CHOL (test code = 2237) 68 MG/DL RISK RATIO LDL/HDL (test cod e = 2238) 2.06 RATIO Teodoro CantuVITAMIN D, 25 [id number] 00:00:00* Test Item Value Reference Range Interpretation Comme [facility] VITAMIN D, 25 OH (test code = 4958) 29 NG/ML Teodoro CantuVITAMIN [id number] 00:00:00* Test Item Value Reference Range Interpretation Comme [facility] VITAMIN B-12 (test code = 2840) 251 PG/ML Teodoro CantuHEMOGLOBIN [id number] 00:00:00* Test Item Value Reference Range Interpretation Comme [facility] HEMOGLOBIN A1c (test code = 51449) 6.7 % PSA, [id number] 00:00:00* Test Item Value Reference Range Interpretation Comme nts PSA, TOTAL (test code = 2606) 0.16 NG/ML Teodoro [id number] 00:00:00* Test Item Value Reference Range Interpretation Comme nts TESTOSTERONE (test code = 2830) 139 NG/DL Teodoro CantuCBC W/AUTO [id number] 00:00:00* Test Item Value Reference Range Interpretation Comme nts WBC (test code = 1001) 5.6 K/UL [...] = 1013) 0.5 % IMMATURE GRANULOCYTES (test code = 1036) 0.4 % NUCLEATED RBCS (test code = 1065) 0.0 /100WBC'S PLATELET COUNT (test code = 1015) 192 K/UL ABSOLUTE NEUTROPHILS (test c ode = 1066) 3.35 K/UL ABSOLUTE LYMPHOCYTES (test c ode = 1067) 1.57 K/UL ABSOLUTE MONOCYTES (test cod e = 1068) 0.45 K/UL ABSOLUTE EOSINOPHILS (test c ode = 1040) 0.17 K/UL ABSOLUTE BASOPHILS (test cod e = 1069) 0.03 K/UL ABS IMMATURE GRANULOCYTES (t est code = 1020) 0.02 K/UL ABS NUCLEATED RBCS (test cod e = 81027) 0.00 K/UL COMPREHENSIVE METABOLIC [id number] 00:00:00* Test Item Value Reference Range Interpretation Comme nts GLUCOSE (test code = 2217) 154 MG/DL BUN (test code = 2208) 11 MG/DL CREATININE (test code = 2214) 0.64 MG/DL eGFR (2020 CKD-EPI) (test code = 50462) 115 ML/MIN/1.73 CALC BUN/CREAT (test code = 2235) 17 RATIO SODIUM (test code = 2231) 143 MEQ/L POTASSIUM (test code = 2228) 4.2 MEQ/L CHLORIDE (test code = 2215) 108 MEQ/L CARBON DIOXIDE (test code = 2206) 21 MEQ/L CALCIUM (test code = 2209) 8.9 MG/DL PROTEIN, TOTAL (test code = 2229) 6.9 G/DL ALBUMIN (test code = 2201) 4.6 G/DL CALC GLOBULIN (test code = 2240) 2.3 G/DL CALC A/G RATIO (test code = 2234) 2.0 RATIO BILIRUBIN, TOTAL (test code = 2207) 0.3 MG/DL ALKALINE PHOSPHATASE (test code = 2204) 97 U/L AST (test code = 2218) 10 U/L ALT (test code = 2219) 18 U/L LIPID [id number] 00:00:00* Test Item Value Reference Range Interpretation Comme nts CHOLESTEROL (test code = 2210) 123 MG/DL TRIGLYCERIDES (test code = 2232) 141 MG/DL HDL CHOLESTEROL (test code = 2220) 33 MG/DL CALC LDL CHOL (test code = 2237) 68 MG/DL RISK RATIO LDL/HDL (test cod e = 2238) 2.06 RATIO VITAMIN D, 25 [id number] 00:00:00* Test Item Value Reference Range Interpretation Comme [facility] VITAMIN D, 25 OH (test code = 4958) 29 NG/ML VITAMIN [id number] 00:00:00* Test Item Value Reference Range Interpretation Comme [facility] VITAMIN B-12 (test code = 2840) 251 PG/ML PSA, [id number] 00:00:00* Test Item Value Reference Range Interpretation Comme [facility] PSA, TOTAL (test code = 2606) 0.16 NG/ML HEMOGLOBIN [id number] 00:00:00* Test Item Value Reference Range Interpretation Comme [facility] HEMOGLOBIN A1c (test code = 59597) 6.7 % Teodoro Dodge [id number] 00:00:00* Test Item Value Reference Range Interpretation Comme [facility] TESTOSTERONE (test code = 2830) 139 NG/DL HEMOGLOBIN [id number] 00:00:00* Test Item Value Reference Range Interpretation Comme nts HEMOGLOBIN A1c (test code = 11565) 6.7 % CBC W/AUTO [id number] 00:00:00* Test Item Value Reference Range Interpretation Comme nts WBC (test code = 1001) 5.6 K/UL [...] = 1013) 0.5 % IMMATURE GRANULOCYTES (test code = 1036) 0.4 % NUCLEATED RBCS (test code = 1065) 0.0 /100WBC'S PLATELET COUNT (test code = 1015) 192 K/UL ABSOLUTE NEUTROPHILS (test c ode = 1066) 3.35 K/UL ABSOLUTE LYMPHOCYTES (test c ode = 1067) 1.57 K/UL ABSOLUTE MONOCYTES (test cod e = 1068) 0.45 K/UL ABSOLUTE EOSINOPHILS (test c ode = 1040) 0.17 K/UL ABSOLUTE BASOPHILS (test cod e = 1069) 0.03 K/UL ABS IMMATURE GRANULOCYTES (t est code = 1020) 0.02 K/UL ABS NUCLEATED RBCS (test cod e = 63288) 0.00 K/UL COMPREHENSIVE METABOLIC [id number] 00:00:00* Test Item Value Reference Range Interpretation Comme nts GLUCOSE (test code = 2217) 154 MG/DL BUN (test code = 2208) 11 MG/DL CREATININE (test code = 2214) 0.64 MG/DL eGFR (2020 CKD-EPI) (test code = 45665) 115 ML/MIN/1.73 CALC BUN/CREAT (test code = 2235) 17 RATIO SODIUM (test code = 2231) 143 MEQ/L POTASSIUM (test code = 2228) 4.2 MEQ/L CHLORIDE (test code = 2215) 108 MEQ/L CARBON DIOXIDE (test code = 2206) 21 MEQ/L CALCIUM (test code = 2209) 8.9 MG/DL PROTEIN, TOTAL (test code = 2229) 6.9 G/DL ALBUMIN (test code = 2201) 4.6 G/DL CALC GLOBULIN (test code = 2240) 2.3 G/DL CALC A/G RATIO (test code = 2234) 2.0 RATIO BILIRUBIN, TOTAL (test code = 2207) 0.3 MG/DL ALKALINE PHOSPHATASE (test code = 2204) 97 U/L AST (test code = 2218) 10 U/L ALT (test code = 2219) 18 U/L LIPID [id number] 00:00:00* Test Item Value Reference Range Interpretation Comme nts CHOLESTEROL (test code = 2210) 123 MG/DL TRIGLYCERIDES (test code = 2232) 141 MG/DL HDL CHOLESTEROL (test code = 2220) 33 MG/DL CALC LDL CHOL (test code = 2237) 68 MG/DL RISK RATIO LDL/HDL (test cod e = 2238) 2.06 RATIO VITAMIN D, 25 [id number] 00:00:00* Test Item Value Reference Range Interpretation Comme [facility] VITAMIN D, 25 OH (test code = 4958) 29 NG/ML VITAMIN [id number] 00:00:00* Test Item Value Reference Range Interpretation Comme [facility] VITAMIN B-12 (test code = 2840) 251 PG/ML PSA, [id number] 00:00:00* Test Item Value Reference Range Interpretation Comme [facility] PSA, TOTAL (test code = 2606) 0.16 NG/ML [id number] 00:00:00* Test Item Value Reference Range Interpretation Comme [facility] TESTOSTERONE (test code = 2830) 139 NG/DL HEMOGLOBIN [id number] 00:00:00* Test Item Value Reference Range Interpretation Comme [facility] HEMOGLOBIN A1c (test code = 57473) 6.7 % CBC W/AUTO [id number] 00:00:00* Test Item Value Reference Range Interpretation Comme [facility] WBC (test code = 1001) 5.6 K/UL [...] = 1013) 0.5 % IMMATURE GRANULOCYTES (test code = 1036) 0.4 % NUCLEATED RBCS (test code = 1065) 0.0 /100WBC'S PLATELET COUNT (test code = 1015) 192 K/UL ABSOLUTE NEUTROPHILS (test c ode = 1066) 3.35 K/UL ABSOLUTE LYMPHOCYTES (test c ode = 1067) 1.57 K/UL ABSOLUTE MONOCYTES (test cod e = 1068) 0.45 K/UL ABSOLUTE EOSINOPHILS (test c ode = 1040) 0.17 K/UL ABSOLUTE BASOPHILS (test cod e = 1069) 0.03 K/UL ABS IMMATURE GRANULOCYTES (t est code = 1020) 0.02 K/UL ABS NUCLEATED RBCS (test cod e = 04943) 0.00 K/UL COMPREHENSIVE METABOLIC [id number] 00:00:00* Test Item Value Reference Range Interpretation Comme nts GLUCOSE (test code = 2217) 154 MG/DL BUN (test code = 2208) 11 MG/DL CREATININE (test code = 2214) 0.64 MG/DL eGFR (2020 CKD-EPI) (test code = 34618) 115 ML/MIN/1.73 CALC BUN/CREAT (test code = 2235) 17 RATIO SODIUM (test code = 2231) 143 MEQ/L POTASSIUM (test code = 2228) 4.2 MEQ/L CHLORIDE (test code = 2215) 108 MEQ/L CARBON DIOXIDE (test code = 2206) 21 MEQ/L CALCIUM (test code = 2209) 8.9 MG/DL PROTEIN, TOTAL (test code = 2229) 6.9 G/DL ALBUMIN (test code = 2201) 4.6 G/DL CALC GLOBULIN (test code = 2240) 2.3 G/DL CALC A/G RATIO (test code = 2234) 2.0 RATIO BILIRUBIN, TOTAL (test code = 2207) 0.3 MG/DL ALKALINE PHOSPHATASE (test code = 2204) 97 U/L AST (test code = 2218) 10 U/L ALT (test code = 2219) 18 U/L LIPID [id number] 00:00:00* Test Item Value Reference Range Interpretation Comme nts CHOLESTEROL (test code = 2210) 123 MG/DL TRIGLYCERIDES (test code = 2232) 141 MG/DL HDL CHOLESTEROL (test code = 2220) 33 MG/DL CALC LDL CHOL (test code = 2237) 68 MG/DL RISK RATIO LDL/HDL (test cod e = 2238) 2.06 RATIO VITAMIN D, 25 [id number] 00:00:00* Test Item Value Reference Range Interpretation Comme nts VITAMIN D, 25 OH (test code = 4958) 29 NG/ML VITAMIN [id number] 00:00:00* Test Item Value Reference Range Interpretation Comme nts VITAMIN B-12 (test code = 2840) 251 PG/ML PSA, [id number] 00:00:00* Test Item Value Reference Range Interpretation Comme nts PSA, TOTAL (test code = 2606) 0.16 NG/ML [id number] 00:00:00* Test Item Value Reference Range Interpretation Comme nts TESTOSTERONE (test code = 2830) 139 NG/DL CBC W/AUTO [id number] 00:00:00* Test Item Value Reference Range Interpretation Comme nts WBC (test code = 1001) 5.6 K/UL [...] = 1013) 0.5 % IMMATURE GRANULOCYTES (test code = 1036) 0.4 % NUCLEATED RBCS (test code = 1065) 0.0 /100WBC'S PLATELET COUNT (test code = 1015) 192 K/UL ABSOLUTE NEUTROPHILS (test c ode = 1066) 3.35 K/UL ABSOLUTE LYMPHOCYTES (test c ode = 1067) 1.57 K/UL ABSOLUTE MONOCYTES (test cod e = 1068) 0.45 K/UL ABSOLUTE EOSINOPHILS (test c ode = 1040) 0.17 K/UL ABSOLUTE BASOPHILS (test cod e = 1069) 0.03 K/UL ABS IMMATURE GRANULOCYTES (t est code = 1020) 0.02 K/UL ABS NUCLEATED RBCS (test cod e = 56158) 0.00 K/UL Teodoro Echo PepeCOMPREHENSIVE METABOLIC [id number] 00:00:00* Test Item Value Reference Range Interpretation Comme nts GLUCOSE (test code = 2217) 154 MG/DL BUN (test code = 2208) 11 MG/DL CREATININE (test code = 2214) 0.64 MG/DL eGFR (2020 CKD-EPI) (test code = 85531) 115 ML/MIN/1.73 CALC BUN/CREAT (test code = 2235) 17 RATIO SODIUM (test code = 2231) 143 MEQ/L POTASSIUM (test code = 2228) 4.2 MEQ/L CHLORIDE (test code = 2215) 108 MEQ/L CARBON DIOXIDE (test code = 2206) 21 MEQ/L CALCIUM (test code = 2209) 8.9 MG/DL PROTEIN, TOTAL (test code = 2229) 6.9 G/DL ALBUMIN (test code = 2201) 4.6 G/DL CALC GLOBULIN (test code = 2240) 2.3 G/DL CALC A/G RATIO (test code = 2234) 2.0 RATIO BILIRUBIN, TOTAL (test code = 2207) 0.3 MG/DL ALKALINE PHOSPHATASE (test code = 2204) 97 U/L AST (test code = 2218) 10 U/L ALT (test code = 2219) 18 U/L Teodoro Dodge AustinLIPID [id number] 00:00:00* Test Item Value Reference Range Interpretation Comme nts CHOLESTEROL (test code = 2210) 123 MG/DL TRIGLYCERIDES (test code = 2232) 141 MG/DL HDL CHOLESTEROL (test code = 2220) 33 MG/DL CALC LDL CHOL (test code = 2237) 68 MG/DL RISK RATIO LDL/HDL (test cod e = 2238) 2.06 RATIO Teodoro CantuVITAMIN D, 25 [id number] 00:00:00* Test Item Value Reference Range Interpretation Comme bria VITAMIN D, 25 OH (test code = 4958) 29 NG/ML Teodoro CantuHEMOGLOBIN [id number] 00:00:00* Test Item Value Reference Range Interpretation Comme bria HEMOGLOBIN A1c (test code = 03015) 6.7 % Teodoro CantuVITAMIN [id number] 00:00:00* Test Item Value Reference Range Interpretation Comme bria VITAMIN B-12 (test code = 2840) 251 PG/ML Teodoro CantuPSA, [id number] 00:00:00* Test Item Value Reference Range Interpretation Comme bira PSA, TOTAL (test code = 2606) 0.16 NG/ML Teodoro [id number] 00:00:00* Test Item Value Reference Range Interpretation Comme nts TESTOSTERONE (test code = 2830) 139 NG/DL Teodoro CantuCBC W/AUTO [id number] 00:00:00* Test Item Value Reference Range Interpretation Comme bria WBC (test code = 1001) 5.6 K/UL [...] = 1013) 0.5 % IMMATURE GRANULOCYTES (test code = 1036) 0.4 % NUCLEATED RBCS (test code = 1065) 0.0 /100WBC'S PLATELET COUNT (test code = 1015) 192 K/UL ABSOLUTE NEUTROPHILS (test c ode = 1066) 3.35 K/UL ABSOLUTE LYMPHOCYTES (test c ode = 1067) 1.57 K/UL ABSOLUTE MONOCYTES (test cod e = 1068) 0.45 K/UL ABSOLUTE EOSINOPHILS (test c ode = 1040) 0.17 K/UL ABSOLUTE BASOPHILS (test cod e = 1069) 0.03 K/UL ABS IMMATURE GRANULOCYTES (t est code = 1020) 0.02 K/UL ABS NUCLEATED RBCS (test cod e = 78873) 0.00 K/UL Teodoro CantuHEMOGLOBIN [id number] 00:00:00* Test Item Value Reference Range Interpretation Comme nts HEMOGLOBIN A1c (test code = 09292) 6.7 % Teodoro CantuCBC W/AUTO [id number] 00:00:00* Test Item Value Reference Range Interpretation Comme nts WBC (test code = 1001) 5.6 K/UL [...] = 1013) 0.5 % IMMATURE GRANULOCYTES (test code = 1036) 0.4 % NUCLEATED RBCS (test code = 1065) 0.0 /100WBC'S PLATELET COUNT (test code = 1015) 192 K/UL ABSOLUTE NEUTROPHILS (test c ode = 1066) 3.35 K/UL ABSOLUTE LYMPHOCYTES (test c ode = 1067) 1.57 K/UL ABSOLUTE MONOCYTES (test cod e = 1068) 0.45 K/UL ABSOLUTE EOSINOPHILS (test c ode = 1040) 0.17 K/UL ABSOLUTE BASOPHILS (test cod e = 1069) 0.03 K/UL ABS IMMATURE GRANULOCYTES (t est code = 1020) 0.02 K/UL ABS NUCLEATED RBCS (test cod e = 56339) 0.00 K/UL Te[facility] CantuCOMPREHENSIVE METABOLIC [id number] 00:00:00* Test Item Value Reference Range Interpretation Comme nts GLUCOSE (test code = 2217) 154 MG/DL BUN (test code = 2208) 11 MG/DL CREATININE (test code = 2214) 0.64 MG/DL eGFR (2020 CKD-EPI) (test code = 44500) 115 ML/MIN/1.73 CALC BUN/CREAT (test code = 2235) 17 RATIO SODIUM (test code = 2231) 143 MEQ/L POTASSIUM (test code = 2228) 4.2 MEQ/L CHLORIDE (test code = 2215) 108 MEQ/L CARBON DIOXIDE (test code = 2206) 21 MEQ/L CALCIUM (test code = 2209) 8.9 MG/DL PROTEIN, TOTAL (test code = 222) 6.9 G/DL ALBUMIN (test code = 2201) 4.6 G/DL CALC GLOBULIN (test code = 2240) 2.3 G/DL CALC A/G RATIO (test code = 2234) 2.0 RATIO BILIRUBIN, TOTAL (test code = 2207) 0.3 MG/DL ALKALINE PHOSPHATASE (test code = 2204) 97 U/L AST (test code = 2218) 10 U/L ALT (test code = 2219) 18 U/L Teodoro CantuLIPID [id number] 00:00:00* Test Item Value Reference Range Interpretation Comme nts CHOLESTEROL (test code = 2210) 123 MG/DL TRIGLYCERIDES (test code = 2232) 141 MG/DL HDL CHOLESTEROL (test code = 0) 33 MG/DL CALC LDL CHOL (test code = 2237) 68 MG/DL RISK RATIO LDL/HDL (test cod e = 2238) 2.06 RATIO Teodoro CantuVITAMIN D, 25 [id number] 00:00:00* Test Item Value Reference Range Interpretation Comme [facility] VITAMIN D, 25 OH (test code = 4958) 29 NG/ML Teodoro CantuVITAMIN [id number] 00:00:00* Test Item Value Reference Range Interpretation Comme [facility] VITAMIN B-12 (test code = 2840) 251 PG/ML Teodoro CantuPSA, [id number] 00:00:00* Test Item Value Reference Range Interpretation Comme nts PSA, TOTAL (test code = 2606) 0.16 NG/ML Teodoro [id number] 00:00:00* Test Item Value Reference Range Interpretation Comme nts TESTOSTERONE (test code = 2830) 139 NG/DL Teodoro CantuHEMOGLOBIN [id number] 00:00:00* Test Item Value Reference Range Interpretation Comme nts HEMOGLOBIN A1c (test code = 80938) 6.7 % Teodoro CantuCBC W/AUTO [id number] 00:00:00* Test Item Value Reference Range Interpretation Comme nts WBC (test code = 1001) 5.6 K/UL [...] = 1013) 0.5 % IMMATURE GRANULOCYTES (test code = 1036) 0.4 % NUCLEATED RBCS (test code = 1065) 0.0 /100WBC'S PLATELET COUNT (test code = 1015) 192 K/UL ABSOLUTE NEUTROPHILS (test c ode = 1066) 3.35 K/UL ABSOLUTE LYMPHOCYTES (test c ode = 1067) 1.57 K/UL ABSOLUTE MONOCYTES (test cod e = 1068) 0.45 K/UL ABSOLUTE EOSINOPHILS (test c ode = 1040) 0.17 K/UL ABSOLUTE BASOPHILS (test cod e = 1069) 0.03 K/UL ABS IMMATURE GRANULOCYTES (t est code = 1020) 0.02 K/UL ABS NUCLEATED RBCS (test cod e = 90782) 0.00 K/UL Teodoro CantuCOMPREHENSIVE METABOLIC [id number] 00:00:00* Test Item Value Reference Range Interpretation Comme nts GLUCOSE (test code = 2217) 154 MG/DL BUN (test code = 2208) 11 MG/DL CREATININE (test code = 2214) 0.64 MG/DL eGFR (2020 CKD-EPI) (test code = 53155) 115 ML/MIN/1.73 CALC BUN/CREAT (test code = 2235) 17 RATIO SODIUM (test code = 2231) 143 MEQ/L POTASSIUM (test code = 2228) 4.2 MEQ/L CHLORIDE (test code = 2215) 108 MEQ/L CARBON DIOXIDE (test code = 2206) 21 MEQ/L CALCIUM (test code = 2209) 8.9 MG/DL PROTEIN, TOTAL (test code = 2229) 6.9 G/DL ALBUMIN (test code = 2201) 4.6 G/DL CALC GLOBULIN (test code = 2240) 2.3 G/DL CALC A/G RATIO (test code = 2234) 2.0 RATIO BILIRUBIN, TOTAL (test code = 2207) 0.3 MG/DL ALKALINE PHOSPHATASE (test code = 2204) 97 U/L AST (test code = 2218) 10 U/L ALT (test code = 2219) 18 U/L Teodoro CantuLIPID [id number] 00:00:00* Test Item Value Reference Range Interpretation Comme nts CHOLESTEROL (test code = 2210) 123 MG/DL TRIGLYCERIDES (test code = 2232) 141 MG/DL HDL CHOLESTEROL (test code = 2220) 33 MG/DL CALC LDL CHOL (test code = 2237) 68 MG/DL RISK RATIO LDL/HDL (test cod e = 2238) 2.06 RATIO Teodoro CantuVITAMIN D, 25 [id number] 00:00:00* Test Item Value Reference Range Interpretation Comme [facility] VITAMIN D, 25 OH (test code = 4958) 29 NG/ML Teodoro CantuVITAMIN [id number] 00:00:00* Test Item Value Reference Range Interpretation Comme [facility] VITAMIN B-12 (test code = 2840) 251 PG/ML Teodoro CantuPSA, [id number] 00:00:00* Test Item Value Reference Range Interpretation Comme [facility] PSA, TOTAL (test code = 2606) 0.16 NG/ML Teodoro [id number] 00:00:00* Test Item Value Reference Range Interpretation Comme nts TESTOSTERONE (test code = 2830) 139 NG/DL Teodoro CantuCOMPREHENSIVE METABOLIC [id number] 00:00:00* Test Item Value Reference Range Interpretation Comme nts GLUCOSE (test code = 2217) 154 MG/DL BUN (test code = 2208) 11 MG/DL CREATININE (test code = 2214) 0.64 MG/DL eGFR (2020 CKD-EPI) (test code = 54831) 115 ML/MIN/1.73 CALC BUN/CREAT (test code = 2235) 17 RATIO SODIUM (test code = 2231) 143 MEQ/L POTASSIUM (test code = 2228) 4.2 MEQ/L CHLORIDE (test code = 2215) 108 MEQ/L CARBON DIOXIDE (test code = 2206) 21 MEQ/L CALCIUM (test code = 2209) 8.9 MG/DL PROTEIN, TOTAL (test code = 2229) 6.9 G/DL ALBUMIN (test code = 2201) 4.6 G/DL CALC GLOBULIN (test code = 2240) 2.3 G/DL CALC A/G RATIO (test code = 2234) 2.0 RATIO BILIRUBIN, TOTAL (test code = 2207) 0.3 MG/DL ALKALINE PHOSPHATASE (test code = 2204) 97 U/L AST (test code = 2218) 10 U/L ALT (test code = 2219) 18 U/L Teodoro CantuLIPID [id number] 00:00:00* Test Item Value Reference Range Interpretation Comme nts CHOLESTEROL (test code = 2210) 123 MG/DL TRIGLYCERIDES (test code = 2232) 141 MG/DL HDL CHOLESTEROL (test code = 2220) 33 MG/DL CALC LDL CHOL (test code = 2237) 68 MG/DL RISK RATIO LDL/HDL (test cod e = 2238) 2.06 RATIO Teodoro CantuVITAMIN D, 25 [id number] 00:00:00* Test Item Value Reference Range Interpretation Comme [facility] VITAMIN D, 25 OH (test code = 4958) 29 NG/ML Teodoro CantuVITAMIN [id number] 00:00:00* Test Item Value Reference Range Interpretation Comme [facility] VITAMIN B-12 (test code = 2840) 251 PG/ML Teodoro CantuPSA, [id number] 00:00:00* Test Item Value Reference Range Interpretation Comme nts PSA, TOTAL (test code = 2606) 0.16 NG/ML Teodoro [id number] 00:00:00* Test Item Value Reference Range Interpretation Comme nts TESTOSTERONE (test code = 2830) 139 NG/DL Teodoro CantuHEMOGLOBIN [id number] 00:00:00* Test Item Value Reference Range Interpretation Comme nts HEMOGLOBIN A1c (test code = 79391) 6.7 % Teodoro CantuCBC W/AUTO [id number] 00:00:00* Test Item Value Reference Range Interpretation Comme nts WBC (test code = 1001) 5.6 K/UL [...] = 1013) 0.5 % IMMATURE GRANULOCYTES (test code = 1036) 0.4 % NUCLEATED RBCS (test code = 1065) 0.0 /100WBC'S PLATELET COUNT (test code = 1015) 192 K/UL ABSOLUTE NEUTROPHILS (test c ode = 1066) 3.35 K/UL ABSOLUTE LYMPHOCYTES (test c ode = 1067) 1.57 K/UL ABSOLUTE MONOCYTES (test cod e = 1068) 0.45 K/UL ABSOLUTE EOSINOPHILS (test c ode = 1040) 0.17 K/UL ABSOLUTE BASOPHILS (test cod e = 1069) 0.03 K/UL ABS IMMATURE GRANULOCYTES (t est code = 1020) 0.02 K/UL ABS NUCLEATED RBCS (test cod e = 44775) 0.00 K/UL Teodoro CantuCOMPREHENSIVE METABOLIC [id number] 00:00:00* Test Item Value Reference Range Interpretation Comme nts GLUCOSE (test code = 2217) 154 MG/DL BUN (test code = 2208) 11 MG/DL CREATININE (test code = 2214) 0.64 MG/DL eGFR (2020 CKD-EPI) (test code = 16057) 115 ML/MIN/1.73 CALC BUN/CREAT (test code = 2235) 17 RATIO SODIUM (test code = 2231) 143 MEQ/L POTASSIUM (test code = 2228) 4.2 MEQ/L CHLORIDE (test code = 2215) 108 MEQ/L CARBON DIOXIDE (test code = 2206) 21 MEQ/L CALCIUM (test code = 2209) 8.9 MG/DL PROTEIN, TOTAL (test code = 2229) 6.9 G/DL ALBUMIN (test code = 2201) 4.6 G/DL CALC GLOBULIN (test code = 2240) 2.3 G/DL CALC A/G RATIO (test code = 2234) 2.0 RATIO BILIRUBIN, TOTAL (test code = 2207) 0.3 MG/DL ALKALINE PHOSPHATASE (test code = 2204) 97 U/L AST (test code = 2218) 10 U/L ALT (test code = 2219) 18 U/L Teodoro CantuLIPID [id number] 00:00:00* Test Item Value Reference Range Interpretation Comme nts CHOLESTEROL (test code = 2210) 123 MG/DL TRIGLYCERIDES (test code = 2232) 141 MG/DL HDL CHOLESTEROL (test code = 2220) 33 MG/DL CALC LDL CHOL (test code = 2237) 68 MG/DL RISK RATIO LDL/HDL (test cod e = 2238) 2.06 RATIO Teodoro CantuVITAMIN D, 25 [id number] 00:00:00* Test Item Value Reference Range Interpretation Comme [facility] VITAMIN D, 25 OH (test code = 4958) 29 NG/ML Teodoro CantuVITAMIN [id number] 00:00:00* Test Item Value Reference Range Interpretation Comme [facility] VITAMIN B-12 (test code = 2840) 251 PG/ML Teodoro CantuPSA, [id number] 00:00:00* Test Item Value Reference Range Interpretation Comme [facility] PSA, TOTAL (test code = 2606) 0.16 NG/ML Teodoro [id number] 00:00:00* Test Item Value Reference Range Interpretation Comme nts TESTOSTERONE (test code = 2830) 139 NG/DL Teodoro CantuHEMOGLOBIN [id number] 00:00:00* Test Item Value Reference Range Interpretation Comme nts HEMOGLOBIN A1c (test code = 49434) 6.7 % Teodoro CantuCBC W/AUTO [id number] 00:00:00* Test Item Value Reference Range Interpretation Comme nts WBC (test code = 1001) 5.6 K/UL [...] = 1013) 0.5 % IMMATURE GRANULOCYTES (test code = 1036) 0.4 % NUCLEATED RBCS (test code = 1065) 0.0 /100WBC'S PLATELET COUNT (test code = 1015) 192 K/UL ABSOLUTE NEUTROPHILS (test c ode = 1066) 3.35 K/UL ABSOLUTE LYMPHOCYTES (test c ode = 1067) 1.57 K/UL ABSOLUTE MONOCYTES (test cod e = 1068) 0.45 K/UL ABSOLUTE EOSINOPHILS (test c ode = 1040) 0.17 K/UL ABSOLUTE BASOPHILS (test cod e = 1069) 0.03 K/UL ABS IMMATURE GRANULOCYTES (t est code = 1020) 0.02 K/UL ABS NUCLEATED RBCS (test cod e = 74086) 0.00 K/UL Teodoro CantuCOMPREHENSIVE METABOLIC [id number] 00:00:00* Test Item Value Reference Range Interpretation Comme nts GLUCOSE (test code = 2217) 154 MG/DL BUN (test code = 2208) 11 MG/DL CREATININE (test code = 2214) 0.64 MG/DL eGFR (2020 CKD-EPI) (test code = 03983) 115 ML/MIN/1.73 CALC BUN/CREAT (test code = 2235) 17 RATIO SODIUM (test code = 2231) 143 MEQ/L POTASSIUM (test code = 2228) 4.2 MEQ/L CHLORIDE (test code = 2215) 108 MEQ/L CARBON DIOXIDE (test code = 2206) 21 MEQ/L CALCIUM (test code = 2209) 8.9 MG/DL PROTEIN, TOTAL (test code = 2229) 6.9 G/DL ALBUMIN (test code = 2201) 4.6 G/DL CALC GLOBULIN (test code = 2240) 2.3 G/DL CALC A/G RATIO (test code = 2234) 2.0 RATIO BILIRUBIN, TOTAL (test code = 2207) 0.3 MG/DL ALKALINE PHOSPHATASE (test code = 2204) 97 U/L AST (test code = 2218) 10 U/L ALT (test code = 2219) 18 U/L Teodoro CantuLIPID [id number] 00:00:00* Test Item Value Reference Range Interpretation Comme nts CHOLESTEROL (test code = 2210) 123 MG/DL TRIGLYCERIDES (test code = 2232) 141 MG/DL HDL CHOLESTEROL (test code = 2220) 33 MG/DL CALC LDL CHOL (test code = 2237) 68 MG/DL RISK RATIO LDL/HDL (test cod e = 2238) 2.06 RATIO Teodoro CantuVITAMIN D, 25 [id number] 00:00:00* Test Item Value Reference Range Interpretation Comme [facility] VITAMIN D, 25 OH (test code = 4958) 29 NG/ML Teodoro CantuVITAMIN [id number] 00:00:00* Test Item Value Reference Range Interpretation Comme [facility] VITAMIN B-12 (test code = 2840) 251 PG/ML Teodoro CantuPSA, [id number] 00:00:00* Test Item Value Reference Range Interpretation Comme [facility] PSA, TOTAL (test code = 2606) 0.16 NG/ML Teodoro [id number] 00:00:00* Test Item Value Reference Range Interpretation Comme [facility] TESTOSTERONE (test code = 2830) 139 NG/DL Teodoro CantuHEMOGLOBIN [id number] 00:00:00* Test Item Value Reference Range Interpretation Comme nts HEMOGLOBIN A1c (test code = 40067) 6.7 % Teodoro CantuCBC W/AUTO [id number] 00:00:00* Test Item Value Reference Range Interpretation Comme nts WBC (test code = 1001) 5.6 K/UL [...] = 1013) 0.5 % IMMATURE GRANULOCYTES (test code = 1036) 0.4 % NUCLEATED RBCS (test code = 1065) 0.0 /100WBC'S PLATELET COUNT (test code = 1015) 192 K/UL ABSOLUTE NEUTROPHILS (test c ode = 1066) 3.35 K/UL ABSOLUTE LYMPHOCYTES (test c ode = 1067) 1.57 K/UL ABSOLUTE MONOCYTES (test cod e = 1068) 0.45 K/UL ABSOLUTE EOSINOPHILS (test c ode = 1040) 0.17 K/UL ABSOLUTE BASOPHILS (test cod e = 1069) 0.03 K/UL ABS IMMATURE GRANULOCYTES (t est code = 1020) 0.02 K/UL ABS NUCLEATED RBCS (test cod e = 76852) 0.00 K/UL Teodoro CantuCOMPREHENSIVE METABOLIC [id number] 00:00:00* Test Item Value Reference Range Interpretation Comme nts GLUCOSE (test code = 2217) 154 MG/DL BUN (test code = 2208) 11 MG/DL CREATININE (test code = 2214) 0.64 MG/DL eGFR (2020 CKD-EPI) (test code = 35853) 115 ML/MIN/1.73 CALC BUN/CREAT (test code = 2235) 17 RATIO SODIUM (test code = 2231) 143 MEQ/L POTASSIUM (test code = 2228) 4.2 MEQ/L CHLORIDE (test code = 2215) 108 MEQ/L CARBON DIOXIDE (test code = 2206) 21 MEQ/L CALCIUM (test code = 2209) 8.9 MG/DL PROTEIN, TOTAL (test code = 2229) 6.9 G/DL ALBUMIN (test code = 2201) 4.6 G/DL CALC GLOBULIN (test code = 2240) 2.3 G/DL CALC A/G RATIO (test code = 2234) 2.0 RATIO BILIRUBIN, TOTAL (test code = 2207) 0.3 MG/DL ALKALINE PHOSPHATASE (test code = 2204) 97 U/L AST (test code = 2218) 10 U/L ALT (test code = 2219) 18 U/L Teodoro CantuLIPID [id number] 00:00:00* Test Item Value Reference Range Interpretation Comme nts CHOLESTEROL (test code = 2210) 123 MG/DL TRIGLYCERIDES (test code = 2232) 141 MG/DL HDL CHOLESTEROL (test code = 2220) 33 MG/DL CALC LDL CHOL (test code = 2237) 68 MG/DL RISK RATIO LDL/HDL (test cod e = 2238) 2.06 RATIO Teodoro CantuVITAMIN D, 25 [id number] 00:00:00* Test Item Value Reference Range Interpretation Comme [facility] VITAMIN D, 25 OH (test code = 4958) 29 NG/ML Teodoro CantuVITAMIN [id number] 00:00:00* Test Item Value Reference Range Interpretation Comme [facility] VITAMIN B-12 (test code = 2840) 251 PG/ML Teodoro CantuPSA, [id number] 00:00:00* Test Item Value Reference Range Interpretation Comme [facility] PSA, TOTAL (test code = 2606) 0.16 NG/ML Teodoro [id number] 00:00:00* Test Item Value Reference Range Interpretation Comme [facility] TESTOSTERONE (test code = 2830) 139 NG/DL Teodoro CantuHEMOGLOBIN [id number] 00:00:00* Test Item Value Reference Range Interpretation Comme [facility] HEMOGLOBIN A1c (test code = 79583) 6.7 % Teodoro CantuCBC W/AUTO [id number] 00:00:00* Test Item Value Reference Range Interpretation Comme nts WBC (test code = 1001) 5.6 K/UL [...] = 1013) 0.5 % IMMATURE GRANULOCYTES (test code = 1036) 0.4 % NUCLEATED RBCS (test code = 1065) 0.0 /100WBC'S PLATELET COUNT (test code = 1015) 192 K/UL ABSOLUTE NEUTROPHILS (test c ode = 1066) 3.35 K/UL ABSOLUTE LYMPHOCYTES (test c ode = 1067) 1.57 K/UL ABSOLUTE MONOCYTES (test cod e = 1068) 0.45 K/UL ABSOLUTE EOSINOPHILS (test c ode = 1040) 0.17 K/UL ABSOLUTE BASOPHILS (test cod e = 1069) 0.03 K/UL ABS IMMATURE GRANULOCYTES (t est code = 1020) 0.02 K/UL ABS NUCLEATED RBCS (test cod e = 32929) 0.00 K/UL Teodoro F PepeCOMPREHENSIVE METABOLIC [id number] 00:00:00* Test Item Value Reference Range Interpretation Comme nts GLUCOSE (test code = 2217) 154 MG/DL BUN (test code = 2208) 11 MG/DL CREATININE (test code = 2214) 0.64 MG/DL eGFR (2020 CKD-EPI) (test code = 56172) 115 ML/MIN/1.73 CALC BUN/CREAT (test code = 2235) 17 RATIO SODIUM (test code = 2231) 143 MEQ/L POTASSIUM (test code = 2228) 4.2 MEQ/L CHLORIDE (test code = 2215) 108 MEQ/L CARBON DIOXIDE (test code = 2206) 21 MEQ/L CALCIUM (test code = 2209) 8.9 MG/DL PROTEIN, TOTAL (test code = 2229) 6.9 G/DL ALBUMIN (test code = 2201) 4.6 G/DL CALC GLOBULIN (test code = 2240) 2.3 G/DL CALC A/G RATIO (test code = 2234) 2.0 RATIO BILIRUBIN, TOTAL (test code = 2207) 0.3 MG/DL ALKALINE PHOSPHATASE (test code = 2204) 97 U/L AST (test code = 2218) 10 U/L ALT (test code = 2219) 18 U/L Teodoro CantuLIPID [id number] 00:00:00* Test Item Value Reference Range Interpretation Comme nts CHOLESTEROL (test code = 2210) 123 MG/DL TRIGLYCERIDES (test code = 2232) 141 MG/DL HDL CHOLESTEROL (test code = 2220) 33 MG/DL CALC LDL CHOL (test code = 2237) 68 MG/DL RISK RATIO LDL/HDL (test cod e = 2238) 2.06 RATIO Teodoro CantuVITAMIN D, 25 [id number] 00:00:00* Test Item Value Reference Range Interpretation Comme [facility] VITAMIN D, 25 OH (test code = 4958) 29 NG/ML Teodoro CantuVITAMIN [id number] 00:00:00* Test Item Value Reference Range Interpretation Comme [facility] VITAMIN B-12 (test code = 2840) 251 PG/ML Teodoro CantuPSA, [id number] 00:00:00* Test Item Value Reference Range Interpretation Comme [facility] PSA, TOTAL (test code = 2606) 0.16 NG/ML Teodoro [id number] 00:00:00* Test Item Value Reference Range Interpretation Comme [facility] TESTOSTERONE (test code = 2830) 139 NG/DL Teodoro CantuHEMOGLOBIN [id number] 00:00:00* Test Item Value Reference Range Interpretation Comme [facility] HEMOGLOBIN A1c (test code = 66886) 6.7 % Teodoro CantuCBC W/AUTO [id number] 00:00:00* Test Item Value Reference Range Interpretation Comme [facility] WBC (test code = 1001) 5.6 K/UL [...] = 1013) 0.5 % IMMATURE GRANULOCYTES (test code = 1036) 0.4 % NUCLEATED RBCS (test code = 1065) 0.0 /100WBC'S PLATELET COUNT (test code = 1015) 192 K/UL ABSOLUTE NEUTROPHILS (test c ode = 1066) 3.35 K/UL ABSOLUTE LYMPHOCYTES (test c ode = 1067) 1.57 K/UL ABSOLUTE MONOCYTES (test cod e = 1068) 0.45 K/UL ABSOLUTE EOSINOPHILS (test c ode = 1040) 0.17 K/UL ABSOLUTE BASOPHILS (test cod e = 1069) 0.03 K/UL ABS IMMATURE GRANULOCYTES (t est code = 1020) 0.02 K/UL ABS NUCLEATED RBCS (test cod e = 77100) 0.00 K/UL Teodoro CantuCOMPREHENSIVE METABOLIC [id number] 00:00:00* Test Item Value Reference Range Interpretation Comme nts GLUCOSE (test code = 2217) 154 MG/DL BUN (test code = 2208) 11 MG/DL CREATININE (test code = 2214) 0.64 MG/DL eGFR (2020 CKD-EPI) (test code = 15843) 115 ML/MIN/1.73 CALC BUN/CREAT (test code = 2235) 17 RATIO SODIUM (test code = 2231) 143 MEQ/L POTASSIUM (test code = 2228) 4.2 MEQ/L CHLORIDE (test code = 2215) 108 MEQ/L CARBON DIOXIDE (test code = 2206) 21 MEQ/L CALCIUM (test code = 2209) 8.9 MG/DL PROTEIN, TOTAL (test code = 2229) 6.9 G/DL ALBUMIN (test code = 2201) 4.6 G/DL CALC GLOBULIN (test code = 2240) 2.3 G/DL CALC A/G RATIO (test code = 2234) 2.0 RATIO BILIRUBIN, TOTAL (test code = 2207) 0.3 MG/DL ALKALINE PHOSPHATASE (test code = 2204) 97 U/L AST (test code = 2218) 10 U/L ALT (test code = 2219) 18 U/L Teodoro CantuLIPID [id number] 00:00:00* Test Item Value Reference Range Interpretation Comme nts CHOLESTEROL (test code = 2210) 123 MG/DL TRIGLYCERIDES (test code = 2232) 141 MG/DL HDL CHOLESTEROL (test code = 2220) 33 MG/DL CALC LDL CHOL (test code = 2237) 68 MG/DL RISK RATIO LDL/HDL (test cod e = 2238) 2.06 RATIO Teodoro CantuVITAMIN D, 25 [id number] 00:00:00* Test Item Value Reference Range Interpretation Comme [facility] VITAMIN D, 25 OH (test code = 4958) 29 NG/ML Teodoro CantuVITAMIN [id number] 00:00:00* Test Item Value Reference Range Interpretation Comme [facility] VITAMIN B-12 (test code = 2840) 251 PG/ML Teodoro CantuPSA, [id number] 00:00:00* Test Item Value Reference Range Interpretation Comme [facility] PSA, TOTAL (test code = 2606) 0.16 NG/ML Teodoro [id number] 00:00:00* Test Item Value Reference Range Interpretation Comme bria TESTOSTERONE (test code = 2830) 139 NG/DL Teodoro CantuHEMOGLOBIN [id number] 00:00:00* Test Item Value Reference Range Interpretation Comme bria HEMOGLOBIN A1c (test code = 02350) 6.7 % Teodoro CantuCBC W/AUTO [id number] 00:00:00* Test Item Value Reference Range Interpretation Comme bria WBC (test code = 1001) 5.6 K/UL [...] = 1013) 0.5 % IMMATURE GRANULOCYTES (test code = 1036) 0.4 % NUCLEATED RBCS (test code = 1065) 0.0 /100WBC'S PLATELET COUNT (test code = 1015) 192 K/UL ABSOLUTE NEUTROPHILS (test c ode = 1066) 3.35 K/UL ABSOLUTE LYMPHOCYTES (test c ode = 1067) 1.57 K/UL ABSOLUTE MONOCYTES (test cod e = 1068) 0.45 K/UL ABSOLUTE EOSINOPHILS (test c ode = 1040) 0.17 K/UL ABSOLUTE BASOPHILS (test cod e = 1069) 0.03 K/UL ABS IMMATURE GRANULOCYTES (t est code = 1020) 0.02 K/UL ABS NUCLEATED RBCS (test cod e = 31048) 0.00 K/UL Teodoro CantuCOMPREHENSIVE METABOLIC [id number] 00:00:00* Test Item Value Reference Range Interpretation Comme nts GLUCOSE (test code = 2217) 154 MG/DL BUN (test code = 2208) 11 MG/DL CREATININE (test code = 2214) 0.64 MG/DL eGFR (2020 CKD-EPI) (test code = 42591) 115 ML/MIN/1.73 CALC BUN/CREAT (test code = 2235) 17 RATIO SODIUM (test code = 2231) 143 MEQ/L POTASSIUM (test code = 2228) 4.2 MEQ/L CHLORIDE (test code = 2215) 108 MEQ/L CARBON DIOXIDE (test code = 2206) 21 MEQ/L CALCIUM (test code = 2209) 8.9 MG/DL PROTEIN, TOTAL (test code = 2229) 6.9 G/DL ALBUMIN (test code = 2201) 4.6 G/DL CALC GLOBULIN (test code = 2240) 2.3 G/DL CALC A/G RATIO (test code = 2234) 2.0 RATIO BILIRUBIN, TOTAL (test code = 2207) 0.3 MG/DL ALKALINE PHOSPHATASE (test code = 2204) 97 U/L AST (test code = 2218) 10 U/L ALT (test code = 2219) 18 U/L Teodoro CantuLIPID [id number] 00:00:00* Test Item Value Reference Range Interpretation Comme nts CHOLESTEROL (test code = 2210) 123 MG/DL TRIGLYCERIDES (test code = 2232) 141 MG/DL HDL CHOLESTEROL (test code = 2220) 33 MG/DL CALC LDL CHOL (test code = 2237) 68 MG/DL RISK RATIO LDL/HDL (test cod e = 2238) 2.06 RATIO Teodoro CantuCBC W/AUTO DIFF WITH [id number] 03:58:26* Test Item Value Reference Range Interpretation Comme nts WBC (test code = 1001) 7.3 K/UL 3.5-11.0 RBC (test code = 1002) 5.40 M/UL 4.50-6.10 HEMOGLOBIN (test code = 1003) 14.4 G/DL 13.5-17.0 HEMATOCRIT (test code = 1004) 41.7 % 40.0-51.0 MCV (test code = 1005) 77.2 fL 80.0-99.0 L MCH (test code = 1006) 26.7 PG 25.0-33.0 MCHC (test code = 1007) 34.5 G/DL 31.0-36.0 RDW (test code = 1038) 15.3 % 11.5-15.0 H NEUTROPHILS (test code = 1008) 64.3 % LYMPHOCYTES (test code = 1010) 25.5 % MONOCYTES (test code = 1011) 7.8 % EOSINOPHILS (test code = 1012) 1.5 % BASOPHILS (test code = 1013) 0.5 % IMMATURE GRANULOCYTES (test code = 1036) 0.4 % NUCLEATED RBCS (test code = 1065) 0.0 /100 WBC'S See_Comment [Automated [employer] ge] The system which generated this result transmitted reference range: 0.0. The reference range was not used to interpret this result as normal/abnormal. PLATELET COUNT (test code = 1015) 194 K/UL 130-400 ABSOLUTE NEUTROPHILS (test code = 1066) 4.70 K/UL 1.50-7.50 ABSOLUTE LYMPHOCYTES (test code = 1067) 1.87 K/UL 1.00-4.00 ABSOLUTE MONOCYTES (test code = 1068) 0.57 K/UL 0.20-1.00 ABSOLUTE EOSINOPHILS (test code = 1040) 0.11 K/UL 0.00-0.50 ABSOLUTE BASOPHILS (test code = 1069) 0.04 K/UL 0.00-0.20 ABS IMMATURE GRANULOCYTES (test code = 1020) 0.03 K/UL 0.00-0.10 ABS NUCLEATED RBCS (test code = 87633) 0.00 K/UL 0.00-0.11 COMPREHENSIVE METABOLIC [id number] 03:12:28* Test Item Value Reference Range Interpretation Comme nts GLUCOSE (test code = 7) 141 MG/DL 70-99 H BUN (test code = 2207) 11 MG/DL 6-20 CREATININE (test code = 221) 0.78 MG/DL 0.80-1.40 L eGFR (2020 CKD-EPI) (test code = 65469) 108 ML/MIN/1.73 >60 CALC BUN/CREAT (test code = 2235) 14 RATIO 6-28 SODIUM (test code = 223) 141 MEQ/L 133-146 POTASSIUM (test code = 2228) 4.7 MEQ/L 3.5-5.4 CHLORIDE (test code = 2215) 100 MEQ/L 95-107 CARBON DIOXIDE (test code = 2206) 27 MEQ/L 19-31 CALCIUM (test code = 2209) 9.7 MG/DL 8.5-10.5 PROTEIN, TOTAL (test code = 222) 6.8 G/DL 6.1-8.3 ALBUMIN (test code = 220) 4.8 G/DL 3.5-5.2 CALC GLOBULIN (test code = 2240) 2.0 G/DL 1.9-3.7 CALC A/G RATIO (test code = 2234) 2.4 RATIO 1.0-2.6 BILIRUBIN, TOTAL (test code = 2207) 0.5 MG/DL See_Comment [Automated me ssage] The system which generated this result transmitted reference range: <=1.2. The reference range was not used to interpret this result as normal/abnormal. ALKALINE PHOSPHATASE (test code = 4) 93 U/L 40-121 AST (test code = 2218) 17 U/L 9-50 ALT (test code = 2219) 23 U/L 5-50 [id number] 02:56:26* Test Item Value Reference Range Interpretation Comme nts AMYLASE (test code = 2205) 32 U/L 28-100 [id number] 02:56:26* Test Item Value Reference Range Interpretation Comme nts LIPASE (test code = 2058) 22 U/L 13-60 UNLESS OTHERWISE INDICATED, ALL TESTING PERFORMED [facility] [employer] [address] [place] [id number] DOPE WORKER: YESSI SHETH M.D. CLIA NUMBER [id number] [facility] [place]. [id number] CBC W/AUTO DIFF WITH PLATELETS [ADDED]2022-07-04 00:00:00* Test Item Value Reference Range Interpretation Comme nts WBC (test code = 1001) 7.3 K/UL [...] = 1013) 0.5 % IMMATURE GRANULOCYTES (test code = 1036) 0.4 % NUCLEATED RBCS (test code = 1065) 0.0 /100WBC'S PLATELET COUNT (test code = 1015) 194 K/UL ABSOLUTE NEUTROPHILS (test c ode = 1066) 4.70 K/UL ABSOLUTE LYMPHOCYTES (test c ode = 1067) 1.87 K/UL ABSOLUTE MONOCYTES (test cod e = 1068) 0.57 K/UL ABSOLUTE EOSINOPHILS (test c ode = 1040) 0.11 K/UL ABSOLUTE BASOPHILS (test cod e = 1069) 0.04 K/UL ABS IMMATURE GRANULOCYTES (t est code = 1020) 0.03 K/UL ABS NUCLEATED RBCS (test cod e = 37398) 0.00 K/UL Teodoro CantuCOMPREHENSIVE METABOLIC PANEL [ADDED]2022-07-04 00:00:00* Test Item Value Reference Range Interpretation Comme nts GLUCOSE (test code = 7) 141 MG/DL BUN (test code = 8) 11 MG/DL CREATININE (test code = 2214) 0.78 MG/DL eGFR (2020 CKD-EPI) (test code = ) 108 ML/MIN/1.73 CALC BUN/CREAT (test code = 5) 14 RATIO SODIUM (test code = 2231) 141 MEQ/L POTASSIUM (test code = 2228) 4.7 MEQ/L CHLORIDE (test code = 2215) 100 MEQ/L CARBON DIOXIDE (test code = 2206) 27 MEQ/L CALCIUM (test code = 2209) 9.7 MG/DL PROTEIN, TOTAL (test code = 2228) 6.8 G/DL ALBUMIN (test code = 220) 4.8 G/DL CALC GLOBULIN (test code = 2240) 2.0 G/DL CALC A/G RATIO (test code = 223) 2.4 RATIO BILIRUBIN, TOTAL (test code = 2206) 0.5 MG/DL ALKALINE PHOSPHATASE (test code = 2203) 93 U/L AST (test code = 2217) 17 U/L ALT (test code = 9) 23 U/L Teodoro Dodge AustinAMYLASE [ADDED]2022-07-04 00:00:00* Test Item Value Reference Range Interpretation Comme nts AMYLASE (test code = 2204) 32 U/L Teodoro CantuLIPASE [ADDED]2022-07-04 00:00:00* Test Item Value Reference Range Interpretation Comme nts LIPASE (test code = 2057) 22 U/L Teodoro CantuCBC W/AUTO DIFF WITH PLATELETS [ADDED]2022-07-04 00:00:00* Test Item Value Reference Range Interpretation Comme nts WBC (test code = 1001) 7.3 K/UL [...] = 1013) 0.5 % IMMATURE GRANULOCYTES (test code = 1036) 0.4 % NUCLEATED RBCS (test code = 1065) 0.0 /100WBC'S PLATELET COUNT (test code = 1015) 194 K/UL ABSOLUTE NEUTROPHILS (test c ode = 1066) 4.70 K/UL ABSOLUTE LYMPHOCYTES (test c ode = 1067) 1.87 K/UL ABSOLUTE MONOCYTES (test cod e = 1068) 0.57 K/UL ABSOLUTE EOSINOPHILS (test c ode = 1040) 0.11 K/UL ABSOLUTE BASOPHILS (test cod e = 1069) 0.04 K/UL ABS IMMATURE GRANULOCYTES (t est code = 1020) 0.03 K/UL ABS NUCLEATED RBCS (test cod e = 89155) 0.00 K/UL COMPREHENSIVE METABOLIC PANEL [ADDED]2022-07-04 00:00:00* Test Item Value Reference Range Interpretation Comme nts GLUCOSE (test code = 2217) 141 MG/DL BUN (test code = 2208) 11 MG/DL CREATININE (test code = 2214) 0.78 MG/DL eGFR (2020 CKD-EPI) (test code = 14880) 108 ML/MIN/1.73 CALC BUN/CREAT (test code = 2235) 14 RATIO SODIUM (test code = 2231) 141 MEQ/L POTASSIUM (test code = 2228) 4.7 MEQ/L CHLORIDE (test code = 2215) 100 MEQ/L CARBON DIOXIDE (test code = 2206) 27 MEQ/L CALCIUM (test code = 2209) 9.7 MG/DL PROTEIN, TOTAL (test code = 2229) 6.8 G/DL ALBUMIN (test code = 2201) 4.8 G/DL CALC GLOBULIN (test code = 2240) 2.0 G/DL CALC A/G RATIO (test code = 2234) 2.4 RATIO BILIRUBIN, TOTAL (test code = 2207) 0.5 MG/DL ALKALINE PHOSPHATASE (test code = 2204) 93 U/L AST (test code = 2218) 17 U/L ALT (test code = 2219) 23 U/L AMYLASE [ADDED]2022-07-04 00:00:00* Test Item Value Reference Range Interpretation Comme nts AMYLASE (test code = 2205) 32 U/L LIPASE [ADDED]2022-07-04 00:00:00* Test Item Value Reference Range Interpretation Comme nts LIPASE (test code = 2057) 22 U/L CBC W/AUTO DIFF WITH PLATELETS [ADDED]2022-07-04 00:00:00* Test Item Value Reference Range Interpretation Comme nts WBC (test code = 1001) 7.3 K/UL [...] = 1013) 0.5 % IMMATURE GRANULOCYTES (test code = 1036) 0.4 % NUCLEATED RBCS (test code = 1065) 0.0 /100WBC'S PLATELET COUNT (test code = 1015) 194 K/UL ABSOLUTE NEUTROPHILS (test c ode = 1066) 4.70 K/UL ABSOLUTE LYMPHOCYTES (test c ode = 1067) 1.87 K/UL ABSOLUTE MONOCYTES (test cod e = 1068) 0.57 K/UL ABSOLUTE EOSINOPHILS (test c ode = 1040) 0.11 K/UL ABSOLUTE BASOPHILS (test cod e = 1069) 0.04 K/UL ABS IMMATURE GRANULOCYTES (t est code = 1020) 0.03 K/UL ABS NUCLEATED RBCS (test cod e = 09970) 0.00 K/UL COMPREHENSIVE METABOLIC PANEL [ADDED]2022-07-04 00:00:00* Test Item Value Reference Range Interpretation Comme nts GLUCOSE (test code = 2217) 141 MG/DL BUN (test code = 2208) 11 MG/DL CREATININE (test code = 2214) 0.78 MG/DL eGFR (2020 CKD-EPI) (test code = 71940) 108 ML/MIN/1.73 CALC BUN/CREAT (test code = 2235) 14 RATIO SODIUM (test code = 223) 141 MEQ/L POTASSIUM (test code = 2228) 4.7 MEQ/L CHLORIDE (test code = 2215) 100 MEQ/L CARBON DIOXIDE (test code = 2206) 27 MEQ/L CALCIUM (test code = 2209) 9.7 MG/DL PROTEIN, TOTAL (test code = 2229) 6.8 G/DL ALBUMIN (test code = 2201) 4.8 G/DL CALC GLOBULIN (test code = 2240) 2.0 G/DL CALC A/G RATIO (test code = 2234) 2.4 RATIO BILIRUBIN, TOTAL (test code = 2206) 0.5 MG/DL ALKALINE PHOSPHATASE (test code = 2203) 93 U/L AST (test code = 2217) 17 U/L ALT (test code = 2218) 23 U/L AMYLASE [ADDED]2022-07-04 00:00:00* Test Item Value Reference Range Interpretation Comme nts AMYLASE (test code = 2204) 32 U/L LIPASE [ADDED]2022-07-04 00:00:00* Test Item Value Reference Range Interpretation Comme nts LIPASE (test code = 2057) 22 U/L CBC W/AUTO DIFF WITH PLATELETS [ADDED]2022-07-04 00:00:00* Test Item Value Reference Range Interpretation Comme nts WBC (test code = 1001) 7.3 K/UL [...] = 1013) 0.5 % IMMATURE GRANULOCYTES (test code = 1036) 0.4 % NUCLEATED RBCS (test code = 1065) 0.0 /100WBC'S PLATELET COUNT (test code = 1015) 194 K/UL ABSOLUTE NEUTROPHILS (test c ode = 1066) 4.70 K/UL ABSOLUTE LYMPHOCYTES (test c ode = 1067) 1.87 K/UL ABSOLUTE MONOCYTES (test cod e = 1068) 0.57 K/UL ABSOLUTE EOSINOPHILS (test c ode = 1040) 0.11 K/UL ABSOLUTE BASOPHILS (test cod e = 1069) 0.04 K/UL ABS IMMATURE GRANULOCYTES (t est code = 1020) 0.03 K/UL ABS NUCLEATED RBCS (test cod e = 24280) 0.00 K/UL CBC W/AUTO DIFF WITH PLATELETS [ADDED]2022-07-04 00:00:00* Test Item Value Reference Range Interpretation Comme nts WBC (test code = 1001) 7.3 K/UL [...] = 1013) 0.5 % IMMATURE GRANULOCYTES (test code = 1036) 0.4 % NUCLEATED RBCS (test code = 1065) 0.0 /100WBC'S PLATELET COUNT (test code = 1015) 194 K/UL ABSOLUTE NEUTROPHILS (test c ode = 1066) 4.70 K/UL ABSOLUTE LYMPHOCYTES (test c ode = 1067) 1.87 K/UL ABSOLUTE MONOCYTES (test cod e = 1068) 0.57 K/UL ABSOLUTE EOSINOPHILS (test c ode = 1040) 0.11 K/UL ABSOLUTE BASOPHILS (test cod e = 1069) 0.04 K/UL ABS IMMATURE GRANULOCYTES (t est code = 1020) 0.03 K/UL ABS NUCLEATED RBCS (test cod e = 45283) 0.00 K/UL Teodoro F AustinCBC W/AUTO DIFF WITH PLATELETS [ADDED]2022-07-04 00:00:00* Test Item Value Reference Range Interpretation Comme nts WBC (test code = 1001) 7.3 K/UL [...] = 1013) 0.5 % IMMATURE GRANULOCYTES (test code = 1036) 0.4 % NUCLEATED RBCS (test code = 1065) 0.0 /100WBC'S PLATELET COUNT (test code = 1015) 194 K/UL ABSOLUTE NEUTROPHILS (test c ode = 1066) 4.70 K/UL ABSOLUTE LYMPHOCYTES (test c ode = 1067) 1.87 K/UL ABSOLUTE MONOCYTES (test cod e = 1068) 0.57 K/UL ABSOLUTE EOSINOPHILS (test c ode = 1040) 0.11 K/UL ABSOLUTE BASOPHILS (test cod e = 1069) 0.04 K/UL ABS IMMATURE GRANULOCYTES (t est code = 1020) 0.03 K/UL ABS NUCLEATED RBCS (test cod e = 57428) 0.00 K/UL Teodoro CantuCOMPREHENSIVE METABOLIC PANEL [ADDED]2022-07-04 00:00:00* Test Item Value Reference Range Interpretation Comme nts GLUCOSE (test code = 2217) 141 MG/DL BUN (test code = 2208) 11 MG/DL CREATININE (test code = 2214) 0.78 MG/DL eGFR (2020 CKD-EPI) (test code = 57435) 108 ML/MIN/1.73 CALC BUN/CREAT (test code = 2235) 14 RATIO SODIUM (test code = 2231) 141 MEQ/L POTASSIUM (test code = 2228) 4.7 MEQ/L CHLORIDE (test code = 2215) 100 MEQ/L CARBON DIOXIDE (test code = 2206) 27 MEQ/L CALCIUM (test code = 2209) 9.7 MG/DL PROTEIN, TOTAL (test code = 2229) 6.8 G/DL ALBUMIN (test code = 2201) 4.8 G/DL CALC GLOBULIN (test code = 2240) 2.0 G/DL CALC A/G RATIO (test code = 2234) 2.4 RATIO BILIRUBIN, TOTAL (test code = 2207) 0.5 MG/DL ALKALINE PHOSPHATASE (test code = 2204) 93 U/L AST (test code = 2218) 17 U/L ALT (test code = 2219) 23 U/L AMYLASE [ADDED]2022-07-04 00:00:00* Test Item Value Reference Range Interpretation Comme nts AMYLASE (test code = 2204) 32 U/L LIPASE [ADDED]2022-07-04 00:00:00* Test Item Value Reference Range Interpretation Comme nts LIPASE (test code = 2057) 22 U/L CBC W/AUTO DIFF WITH PLATELETS [ADDED]2022-07-04 00:00:00* Test Item Value Reference Range Interpretation Comme nts WBC (test code = 1001) 7.3 K/UL [...] = 1013) 0.5 % IMMATURE GRANULOCYTES (test code = 1036) 0.4 % NUCLEATED RBCS (test code = 1065) 0.0 /100WBC'S PLATELET COUNT (test code = 1015) 194 K/UL ABSOLUTE NEUTROPHILS (test c ode = 1066) 4.70 K/UL ABSOLUTE LYMPHOCYTES (test c ode = 1067) 1.87 K/UL ABSOLUTE MONOCYTES (test cod e = 1068) 0.57 K/UL ABSOLUTE EOSINOPHILS (test c ode = 1040) 0.11 K/UL ABSOLUTE BASOPHILS (test cod e = 1069) 0.04 K/UL ABS IMMATURE GRANULOCYTES (t est code = 1020) 0.03 K/UL ABS NUCLEATED RBCS (test cod e = 19083) 0.00 K/UL COMPREHENSIVE METABOLIC PANEL [ADDED]2022-07-04 00:00:00* Test Item Value Reference Range Interpretation Comme nts GLUCOSE (test code = 2217) 141 MG/DL BUN (test code = 2208) 11 MG/DL CREATININE (test code = 2214) 0.78 MG/DL eGFR (2020 CKD-EPI) (test code = 74820) 108 ML/MIN/1.73 CALC BUN/CREAT (test code = 2235) 14 RATIO SODIUM (test code = 2231) 141 MEQ/L POTASSIUM (test code = 2228) 4.7 MEQ/L CHLORIDE (test code = 2215) 100 MEQ/L CARBON DIOXIDE (test code = 2206) 27 MEQ/L CALCIUM (test code = 2209) 9.7 MG/DL PROTEIN, TOTAL (test code = 2229) 6.8 G/DL ALBUMIN (test code = 2201) 4.8 G/DL CALC GLOBULIN (test code = 2240) 2.0 G/DL CALC A/G RATIO (test code = 2234) 2.4 RATIO BILIRUBIN, TOTAL (test code = 2207) 0.5 MG/DL ALKALINE PHOSPHATASE (test code = 2204) 93 U/L AST (test code = 2218) 17 U/L ALT (test code = 2219) 23 U/L AMYLASE [ADDED]2022-07-04 00:00:00* Test Item Value Reference Range Interpretation Comme nts AMYLASE (test code = 2205) 32 U/L LIPASE [ADDED]2022-07-04 00:00:00* Test Item Value Reference Range Interpretation Comme nts LIPASE (test code = 2057) 22 U/L COMPREHENSIVE METABOLIC PANEL [ADDED]2022-07-04 00:00:00* Test Item Value Reference Range Interpretation Comme nts GLUCOSE (test code = 2217) 141 MG/DL BUN (test code = 2208) 11 MG/DL CREATININE (test code = 2214) 0.78 MG/DL eGFR (2020 CKD-EPI) (test code = 57249) 108 ML/MIN/1.73 CALC BUN/CREAT (test code = 2235) 14 RATIO SODIUM (test code = 2231) 141 MEQ/L POTASSIUM (test code = 2228) 4.7 MEQ/L CHLORIDE (test code = 2215) 100 MEQ/L CARBON DIOXIDE (test code = 2206) 27 MEQ/L CALCIUM (test code = 2209) 9.7 MG/DL PROTEIN, TOTAL (test code = 2229) 6.8 G/DL ALBUMIN (test code = 2201) 4.8 G/DL CALC GLOBULIN (test code = 2240) 2.0 G/DL CALC A/G RATIO (test code = 2234) 2.4 RATIO BILIRUBIN, TOTAL (test code = 2207) 0.5 MG/DL ALKALINE PHOSPHATASE (test code = 2204) 93 U/L AST (test code = 2218) 17 U/L ALT (test code = 2219) 23 U/L [facility] DIFF WITH PLATELETS [ADDED]2022-07-04 00:00:00* Test Item Value Reference Range Interpretation Comme nts WBC (test code = 1001) 7.3 K/UL [...] = 1013) 0.5 % IMMATURE GRANULOCYTES (test code = 1036) 0.4 % NUCLEATED RBCS (test code = 1065) 0.0 /100WBC'S PLATELET COUNT (test code = 1015) 194 K/UL ABSOLUTE NEUTROPHILS (test c ode = 1066) 4.70 K/UL ABSOLUTE LYMPHOCYTES (test c ode = 1067) 1.87 K/UL ABSOLUTE MONOCYTES (test cod e = 1068) 0.57 K/UL ABSOLUTE EOSINOPHILS (test c ode = 1040) 0.11 K/UL ABSOLUTE BASOPHILS (test cod e = 1069) 0.04 K/UL ABS IMMATURE GRANULOCYTES (t est code = 1020) 0.03 K/UL ABS NUCLEATED RBCS (test cod e = 43360) 0.00 K/UL COMPREHENSIVE METABOLIC PANEL [ADDED]2022-07-04 00:00:00* Test Item Value Reference Range Interpretation Comme nts GLUCOSE (test code = 2217) 141 MG/DL BUN (test code = 2208) 11 MG/DL CREATININE (test code = 2214) 0.78 MG/DL eGFR (2020 CKD-EPI) (test code = 17268) 108 ML/MIN/1.73 CALC BUN/CREAT (test code = 2235) 14 RATIO SODIUM (test code = 2231) 141 MEQ/L POTASSIUM (test code = 2228) 4.7 MEQ/L CHLORIDE (test code = 2215) 100 MEQ/L CARBON DIOXIDE (test code = 2206) 27 MEQ/L CALCIUM (test code = 2209) 9.7 MG/DL PROTEIN, TOTAL (test code = 2229) 6.8 G/DL ALBUMIN (test code = 2201) 4.8 G/DL CALC GLOBULIN (test code = 2240) 2.0 G/DL CALC A/G RATIO (test code = 2234) 2.4 RATIO BILIRUBIN, TOTAL (test code = 2207) 0.5 MG/DL ALKALINE PHOSPHATASE (test code = 2204) 93 U/L AST (test code = 2218) 17 U/L ALT (test code = 2219) 23 U/L AMYLASE [ADDED]2022-07-04 00:00:00* Test Item Value Reference Range Interpretation Comme nts AMYLASE (test code = 2205) 32 U/L LIPASE [ADDED]2022-07-04 00:00:00* Test Item Value Reference Range Interpretation Comme nts LIPASE (test code = 2057) 22 U/L AMYLASE [ADDED]2022-07-04 00:00:00* Test Item Value Reference Range Interpretation Comme nts AMYLASE (test code = 2205) 32 U/L Teodoro CantuLIPASE [ADDED]2022-07-04 00:00:00* Test Item Value Reference Range Interpretation Comme nts LIPASE (test code = 2058) 22 U/L Teodoro CantuCBC W/AUTO DIFF WITH PLATELETS [ADDED]2022-07-04 00:00:00* Test Item Value Reference Range Interpretation Comme nts WBC (test code = 1001) 7.3 K/UL [...] = 1013) 0.5 % IMMATURE GRANULOCYTES (test code = 1036) 0.4 % NUCLEATED RBCS (test code = 1065) 0.0 /100WBC'S PLATELET COUNT (test code = 1015) 194 K/UL ABSOLUTE NEUTROPHILS (test c ode = 1066) 4.70 K/UL ABSOLUTE LYMPHOCYTES (test c ode = 1067) 1.87 K/UL ABSOLUTE MONOCYTES (test cod e = 1068) 0.57 K/UL ABSOLUTE EOSINOPHILS (test c ode = 1040) 0.11 K/UL ABSOLUTE BASOPHILS (test cod e = 1069) 0.04 K/UL ABS IMMATURE GRANULOCYTES (t est code = 1020) 0.03 K/UL ABS NUCLEATED RBCS (test cod e = 60215) 0.00 K/UL Teodoro CantuCOMPREHENSIVE METABOLIC PANEL [ADDED]2022-07-04 00:00:00* Test Item Value Reference Range Interpretation Comme nts GLUCOSE (test code = 2217) 141 MG/DL BUN (test code = 2208) 11 MG/DL CREATININE (test code = 2214) 0.78 MG/DL eGFR (2020 CKD-EPI) (test code = 61245) 108 ML/MIN/1.73 CALC BUN/CREAT (test code = 2235) 14 RATIO SODIUM (test code = 2231) 141 MEQ/L POTASSIUM (test code = 2228) 4.7 MEQ/L CHLORIDE (test code = 2215) 100 MEQ/L CARBON DIOXIDE (test code = 2206) 27 MEQ/L CALCIUM (test code = 2209) 9.7 MG/DL PROTEIN, TOTAL (test code = 2229) 6.8 G/DL ALBUMIN (test code = 2201) 4.8 G/DL CALC GLOBULIN (test code = 2240) 2.0 G/DL CALC A/G RATIO (test code = 2234) 2.4 RATIO BILIRUBIN, TOTAL (test code = 2207) 0.5 MG/DL ALKALINE PHOSPHATASE (test code = 2204) 93 U/L AST (test code = 2218) 17 U/L ALT (test code = 2219) 23 U/L Teodoro Dodeg AustinAMYLASE [ADDED]2022-07-04 00:00:00* Test Item Value Reference Range Interpretation Comme nts AMYLASE (test code = 2205) 32 U/L Teodoro CantuCOMPREHENSIVE METABOLIC PANEL [ADDED]2022-07-04 00:00:00* Test Item Value Reference Range Interpretation Comme nts GLUCOSE (test code = 2217) 141 MG/DL BUN (test code = 2208) 11 MG/DL CREATININE (test code = 2214) 0.78 MG/DL eGFR (2020 CKD-EPI) (test code = 19896) 108 ML/MIN/1.73 CALC BUN/CREAT (test code = 2235) 14 RATIO SODIUM (test code = 2231) 141 MEQ/L POTASSIUM (test code = 2228) 4.7 MEQ/L CHLORIDE (test code = 2215) 100 MEQ/L CARBON DIOXIDE (test code = 2206) 27 MEQ/L CALCIUM (test code = 2209) 9.7 MG/DL PROTEIN, TOTAL (test code = 2229) 6.8 G/DL ALBUMIN (test code = 2201) 4.8 G/DL CALC GLOBULIN (test code = 2240) 2.0 G/DL CALC A/G RATIO (test code = 2234) 2.4 RATIO BILIRUBIN, TOTAL (test code = 2207) 0.5 MG/DL ALKALINE PHOSPHATASE (test code = 2204) 93 U/L AST (test code = 2218) 17 U/L ALT (test code = 2219) 23 U/L Teodoro Dodge AustinLIPASE [ADDED]2022-07-04 00:00:00* Test Item Value Reference Range Interpretation Comme nts LIPASE (test code = 2057) 22 U/L Teodoro CantuCBC W/AUTO DIFF WITH PLATELETS [ADDED]2022-07-04 00:00:00* Test Item Value Reference Range Interpretation Comme nts WBC (test code = 1001) 7.3 K/UL [...] = 1013) 0.5 % IMMATURE GRANULOCYTES (test code = 1036) 0.4 % NUCLEATED RBCS (test code = 1065) 0.0 /100WBC'S PLATELET COUNT (test code = 1015) 194 K/UL ABSOLUTE NEUTROPHILS (test c ode = 1066) 4.70 K/UL ABSOLUTE LYMPHOCYTES (test c ode = 1067) 1.87 K/UL ABSOLUTE MONOCYTES (test cod e = 1068) 0.57 K/UL ABSOLUTE EOSINOPHILS (test c ode = 1040) 0.11 K/UL ABSOLUTE BASOPHILS (test cod e = 1069) 0.04 K/UL ABS IMMATURE GRANULOCYTES (t est code = 1020) 0.03 K/UL ABS NUCLEATED RBCS (test cod e = 01855) 0.00 K/UL Teodoro CantuCOMPREHENSIVE METABOLIC PANEL [ADDED]2022-07-04 00:00:00* Test Item Value Reference Range Interpretation Comme nts GLUCOSE (test code = 2217) 141 MG/DL BUN (test code = 2208) 11 MG/DL CREATININE (test code = 2214) 0.78 MG/DL eGFR (2020 CKD-EPI) (test code = 40975) 108 ML/MIN/1.73 CALC BUN/CREAT (test code = 2235) 14 RATIO SODIUM (test code = 2231) 141 MEQ/L POTASSIUM (test code = 2228) 4.7 MEQ/L CHLORIDE (test code = 2215) 100 MEQ/L CARBON DIOXIDE (test code = 2206) 27 MEQ/L CALCIUM (test code = 2209) 9.7 MG/DL PROTEIN, TOTAL (test code = 2229) 6.8 G/DL ALBUMIN (test code = 2201) 4.8 G/DL CALC GLOBULIN (test code = 2240) 2.0 G/DL CALC A/G RATIO (test code = 2234) 2.4 RATIO BILIRUBIN, TOTAL (test code = 7) 0.5 MG/DL ALKALINE PHOSPHATASE (test code = 2203) 93 U/L AST (test code = 8) 17 U/L ALT (test code = 2218) 23 U/L Teodoro F AustinAMYLASE [ADDED]2022-07-04 00:00:00* Test Item Value Reference Range Interpretation Comme nts AMYLASE (test code = 2204) 32 U/L Teodoro F AustinLIPASE [ADDED]2022-07-04 00:00:00* Test Item Value Reference Range Interpretation Comme nts LIPASE (test code = 2057) 22 U/L Teodoro F AustinAMYLASE [ADDED]2022-07-04 00:00:00* Test Item Value Reference Range Interpretation Comme nts AMYLASE (test code = 2204) 32 U/L Teodoro F AustinLIPASE [ADDED]2022-07-04 00:00:00* Test Item Value Reference Range Interpretation Comme nts LIPASE (test code = 2057) 22 U/L Teodoro F AustinCBC W/AUTO DIFF WITH PLATELETS [ADDED]2022-07-04 00:00:00* Test Item Value Reference Range Interpretation Comme nts WBC (test code = 1001) 7.3 K/UL [...] = 1013) 0.5 % IMMATURE GRANULOCYTES (test code = 1036) 0.4 % NUCLEATED RBCS (test code = 1065) 0.0 /100WBC'S PLATELET COUNT (test code = 1015) 194 K/UL ABSOLUTE NEUTROPHILS (test c ode = 1066) 4.70 K/UL ABSOLUTE LYMPHOCYTES (test c ode = 1067) 1.87 K/UL ABSOLUTE MONOCYTES (test cod e = 1068) 0.57 K/UL ABSOLUTE EOSINOPHILS (test c ode = 1040) 0.11 K/UL ABSOLUTE BASOPHILS (test cod e = 1069) 0.04 K/UL ABS IMMATURE GRANULOCYTES (t est code = 1020) 0.03 K/UL ABS NUCLEATED RBCS (test cod e = 72748) 0.00 K/UL Teodoro CantuCOMPREHENSIVE METABOLIC PANEL [ADDED]2022-07-04 00:00:00* Test Item Value Reference Range Interpretation Comme nts GLUCOSE (test code = 2217) 141 MG/DL BUN (test code = 2208) 11 MG/DL CREATININE (test code = 2214) 0.78 MG/DL eGFR (2020 CKD-EPI) (test code = 76328) 108 ML/MIN/1.73 CALC BUN/CREAT (test code = 2235) 14 RATIO SODIUM (test code = 2231) 141 MEQ/L POTASSIUM (test code = 2228) 4.7 MEQ/L CHLORIDE (test code = 2215) 100 MEQ/L CARBON DIOXIDE (test code = 2206) 27 MEQ/L CALCIUM (test code = 2209) 9.7 MG/DL PROTEIN, TOTAL (test code = 2229) 6.8 G/DL ALBUMIN (test code = 2201) 4.8 G/DL CALC GLOBULIN (test code = 2240) 2.0 G/DL CALC A/G RATIO (test code = 2234) 2.4 RATIO BILIRUBIN, TOTAL (test code = 2207) 0.5 MG/DL ALKALINE PHOSPHATASE (test code = 2204) 93 U/L AST (test code = 2218) 17 U/L ALT (test code = 2219) 23 U/L Teodoro CantuAMYLASE [ADDED]2022-07-04 00:00:00* Test Item Value Reference Range Interpretation Comme nts AMYLASE (test code = 2205) 32 U/L Teodoro Dodge PepeLIPASE [ADDED]2022-07-04 00:00:00* Test Item Value Reference Range Interpretation Comme nts LIPASE (test code = 2057) 22 U/L Teodoro Dodge PepeCBC W/AUTO DIFF WITH PLATELETS [ADDED]2022-07-04 00:00:00* Test Item Value Reference Range Interpretation Comme nts WBC (test code = 1001) 7.3 K/UL [...] = 1013) 0.5 % IMMATURE GRANULOCYTES (test code = 1036) 0.4 % NUCLEATED RBCS (test code = 1065) 0.0 /100WBC'S PLATELET COUNT (test code = 1015) 194 K/UL ABSOLUTE NEUTROPHILS (test c ode = 1066) 4.70 K/UL ABSOLUTE LYMPHOCYTES (test c ode = 1067) 1.87 K/UL ABSOLUTE MONOCYTES (test cod e = 1068) 0.57 K/UL ABSOLUTE EOSINOPHILS (test c ode = 1040) 0.11 K/UL ABSOLUTE BASOPHILS (test cod e = 1069) 0.04 K/UL ABS IMMATURE GRANULOCYTES (t est code = 1020) 0.03 K/UL ABS NUCLEATED RBCS (test cod e = 61578) 0.00 K/UL Teodoro Echo PepeCOMPREHENSIVE METABOLIC PANEL [ADDED]2022-07-04 00:00:00* Test Item Value Reference Range Interpretation Comme nts GLUCOSE (test code = 2217) 141 MG/DL BUN (test code = 2208) 11 MG/DL CREATININE (test code = 2214) 0.78 MG/DL eGFR (2020 CKD-EPI) (test code = ) 108 ML/MIN/1.73 CALC BUN/CREAT (test code = 2234) 14 RATIO SODIUM (test code = 2230) 141 MEQ/L POTASSIUM (test code = 2228) 4.7 MEQ/L CHLORIDE (test code = 2215) 100 MEQ/L CARBON DIOXIDE (test code = 6) 27 MEQ/L CALCIUM (test code = 2209) 9.7 MG/DL PROTEIN, TOTAL (test code = 2228) 6.8 G/DL ALBUMIN (test code = 2201) 4.8 G/DL CALC GLOBULIN (test code = 0) 2.0 G/DL CALC A/G RATIO (test code = 2233) 2.4 RATIO BILIRUBIN, TOTAL (test code = 2206) 0.5 MG/DL ALKALINE PHOSPHATASE (test code = 2203) 93 U/L AST (test code = 2217) 17 U/L ALT (test code = 2218) 23 U/L Teodoro Dodge AustinAMYLASE [ADDED]2022-07-04 00:00:00* Test Item Value Reference Range Interpretation Comme nts AMYLASE (test code = 2204) 32 U/L Teodoro CantuLIPASE [ADDED]2022-07-04 00:00:00* Test Item Value Reference Range Interpretation Comme nts LIPASE (test code = 2057) 22 U/L Teodoro CantuCBC W/AUTO DIFF WITH PLATELETS [ADDED]2022-07-04 00:00:00* Test Item Value Reference Range Interpretation Comme nts WBC (test code = 1001) 7.3 K/UL [...] = 1013) 0.5 % IMMATURE GRANULOCYTES (test code = 1036) 0.4 % NUCLEATED RBCS (test code = 1065) 0.0 /100WBC'S PLATELET COUNT (test code = 1015) 194 K/UL ABSOLUTE NEUTROPHILS (test c ode = 1066) 4.70 K/UL ABSOLUTE LYMPHOCYTES (test c ode = 1067) 1.87 K/UL ABSOLUTE MONOCYTES (test cod e = 1068) 0.57 K/UL ABSOLUTE EOSINOPHILS (test c ode = 1040) 0.11 K/UL ABSOLUTE BASOPHILS (test cod e = 1069) 0.04 K/UL ABS IMMATURE GRANULOCYTES (t est code = 1020) 0.03 K/UL ABS NUCLEATED RBCS (test cod e = 25808) 0.00 K/UL Teodoro CantuCOMPREHENSIVE METABOLIC PANEL [ADDED]2022-07-04 00:00:00* Test Item Value Reference Range Interpretation Comme nts GLUCOSE (test code = 2217) 141 MG/DL BUN (test code = 2208) 11 MG/DL CREATININE (test code = 2214) 0.78 MG/DL eGFR (2020 CKD-EPI) (test code = 27467) 108 ML/MIN/1.73 CALC BUN/CREAT (test code = 2235) 14 RATIO SODIUM (test code = 2231) 141 MEQ/L POTASSIUM (test code = 2228) 4.7 MEQ/L CHLORIDE (test code = 2215) 100 MEQ/L CARBON DIOXIDE (test code = 2206) 27 MEQ/L CALCIUM (test code = 2209) 9.7 MG/DL PROTEIN, TOTAL (test code = 2229) 6.8 G/DL ALBUMIN (test code = 2201) 4.8 G/DL CALC GLOBULIN (test code = 2240) 2.0 G/DL CALC A/G RATIO (test code = 2234) 2.4 RATIO BILIRUBIN, TOTAL (test code = 2207) 0.5 MG/DL ALKALINE PHOSPHATASE (test code = 2204) 93 U/L AST (test code = 2218) 17 U/L ALT (test code = 2219) 23 U/L Teodoro Dodge AustinAMYLASE [ADDED]2022-07-04 00:00:00* Test Item Value Reference Range Interpretation Comme nts AMYLASE (test code = 2205) 32 U/L Teodoro Dodge AustinLIPASE [ADDED]2022-07-04 00:00:00* Test Item Value Reference Range Interpretation Comme nts LIPASE (test code = 2057) 22 U/L Teodoro Dodge PepeCBC W/AUTO DIFF WITH PLATELETS [ADDED]2022-07-04 00:00:00* Test Item Value Reference Range Interpretation Comme nts WBC (test code = 1001) 7.3 K/UL [...] = 1013) 0.5 % IMMATURE GRANULOCYTES (test code = 1036) 0.4 % NUCLEATED RBCS (test code = 1065) 0.0 /100WBC'S PLATELET COUNT (test code = 1015) 194 K/UL ABSOLUTE NEUTROPHILS (test c ode = 1066) 4.70 K/UL ABSOLUTE LYMPHOCYTES (test c ode = 1067) 1.87 K/UL ABSOLUTE MONOCYTES (test cod e = 1068) 0.57 K/UL ABSOLUTE EOSINOPHILS (test c ode = 1040) 0.11 K/UL ABSOLUTE BASOPHILS (test cod e = 1069) 0.04 K/UL ABS IMMATURE GRANULOCYTES (t est code = 1020) 0.03 K/UL ABS NUCLEATED RBCS (test cod e = 35147) 0.00 K/UL Teodoro Echo PepeCOMPREHENSIVE METABOLIC PANEL [ADDED]2022-07-04 00:00:00* Test Item Value Reference Range Interpretation Comme nts GLUCOSE (test code = 2217) 141 MG/DL BUN (test code = 2208) 11 MG/DL CREATININE (test code = 2214) 0.78 MG/DL eGFR (2020 CKD-EPI) (test code = 82072) 108 ML/MIN/1.73 CALC BUN/CREAT (test code = 2235) 14 RATIO SODIUM (test code = 223) 141 MEQ/L POTASSIUM (test code = 2228) 4.7 MEQ/L CHLORIDE (test code = 2215) 100 MEQ/L CARBON DIOXIDE (test code = 6) 27 MEQ/L CALCIUM (test code = 2209) 9.7 MG/DL PROTEIN, TOTAL (test code = 9) 6.8 G/DL ALBUMIN (test code = 2201) 4.8 G/DL CALC GLOBULIN (test code = 2240) 2.0 G/DL CALC A/G RATIO (test code = 2234) 2.4 RATIO BILIRUBIN, TOTAL (test code = 2206) 0.5 MG/DL ALKALINE PHOSPHATASE (test code = 2203) 93 U/L AST (test code = 2217) 17 U/L ALT (test code = 2218) 23 U/L Teodoro Dodge AustinAMYLASE [ADDED]2022-07-04 00:00:00* Test Item Value Reference Range Interpretation Comme nts AMYLASE (test code = 2204) 32 U/L Teodoro F PepeLIPASE [ADDED]2022-07-04 00:00:00* Test Item Value Reference Range Interpretation Comme nts LIPASE (test code = 2057) 22 U/L Teodoro F PepeCBC W/AUTO DIFF WITH PLATELETS [ADDED]2022-07-04 00:00:00* Test Item Value Reference Range Interpretation Comme nts WBC (test code = 1001) 7.3 K/UL [...] = 1013) 0.5 % IMMATURE GRANULOCYTES (test code = 1036) 0.4 % NUCLEATED RBCS (test code = 1065) 0.0 /100WBC'S PLATELET COUNT (test code = 1015) 194 K/UL ABSOLUTE NEUTROPHILS (test c ode = 1066) 4.70 K/UL ABSOLUTE LYMPHOCYTES (test c ode = 1067) 1.87 K/UL ABSOLUTE MONOCYTES (test cod e = 1068) 0.57 K/UL ABSOLUTE EOSINOPHILS (test c ode = 1040) 0.11 K/UL ABSOLUTE BASOPHILS (test cod e = 1069) 0.04 K/UL ABS IMMATURE GRANULOCYTES (t est code = 1020) 0.03 K/UL ABS NUCLEATED RBCS (test cod e = 90742) 0.00 K/UL Teodoro Echo PepeCOMPREHENSIVE METABOLIC PANEL [ADDED]2022-07-04 00:00:00* Test Item Value Reference Range Interpretation Comme nts GLUCOSE (test code = 2217) 141 MG/DL BUN (test code = 2208) 11 MG/DL CREATININE (test code = 2214) 0.78 MG/DL eGFR (2020 CKD-EPI) (test code = 95591) 108 ML/MIN/1.73 CALC BUN/CREAT (test code = 2235) 14 RATIO SODIUM (test code = 2231) 141 MEQ/L POTASSIUM (test code = 2228) 4.7 MEQ/L CHLORIDE (test code = 2215) 100 MEQ/L CARBON DIOXIDE (test code = 2206) 27 MEQ/L CALCIUM (test code = 2209) 9.7 MG/DL PROTEIN, TOTAL (test code = 2229) 6.8 G/DL ALBUMIN (test code = 2201) 4.8 G/DL CALC GLOBULIN (test code = 2240) 2.0 G/DL CALC A/G RATIO (test code = 2234) 2.4 RATIO BILIRUBIN, TOTAL (test code = 2207) 0.5 MG/DL ALKALINE PHOSPHATASE (test code = 2204) 93 U/L AST (test code = 2218) 17 U/L ALT (test code = 2219) 23 U/L Teodoro Echo PepeAMYLASE [ADDED]2022-07-04 00:00:00* Test Item Value Reference Range Interpretation Comme nts AMYLASE (test code = 2205) 32 U/L Teodoro Echo AustinLIPASE [ADDED]2022-07-04 00:00:00* Test Item Value Reference Range Interpretation Comme nts LIPASE (test code = 2057) 22 U/L Teodoro CantuCBC W/AUTO DIFF WITH PLATELETS [ADDED]2022-07-04 00:00:00* Test Item Value Reference Range Interpretation Comme nts WBC (test code = 1001) 7.3 K/UL [...] = 1013) 0.5 % IMMATURE GRANULOCYTES (test code = 1036) 0.4 % NUCLEATED RBCS (test code = 1065) 0.0 /100WBC'S PLATELET COUNT (test code = 1015) 194 K/UL ABSOLUTE NEUTROPHILS (test c ode = 1066) 4.70 K/UL ABSOLUTE LYMPHOCYTES (test c ode = 1067) 1.87 K/UL ABSOLUTE MONOCYTES (test cod e = 1068) 0.57 K/UL ABSOLUTE EOSINOPHILS (test c ode = 1040) 0.11 K/UL ABSOLUTE BASOPHILS (test cod e = 1069) 0.04 K/UL ABS IMMATURE GRANULOCYTES (t est code = 1020) 0.03 K/UL ABS NUCLEATED RBCS (test cod e = 76255) 0.00 K/UL Teodoro CantuCOMPREHENSIVE METABOLIC PANEL [ADDED]2022-07-04 00:00:00* Test Item Value Reference Range Interpretation Comme nts GLUCOSE (test code = 2217) 141 MG/DL BUN (test code = 2208) 11 MG/DL CREATININE (test code = 2214) 0.78 MG/DL eGFR (2020 CKD-EPI) (test code = 41301) 108 ML/MIN/1.73 CALC BUN/CREAT (test code = 2235) 14 RATIO SODIUM (test code = 2231) 141 MEQ/L POTASSIUM (test code = 2228) 4.7 MEQ/L CHLORIDE (test code = 2215) 100 MEQ/L CARBON DIOXIDE (test code = 2206) 27 MEQ/L CALCIUM (test code = 2209) 9.7 MG/DL PROTEIN, TOTAL (test code = 2229) 6.8 G/DL ALBUMIN (test code = 2201) 4.8 G/DL CALC GLOBULIN (test code = 2240) 2.0 G/DL CALC A/G RATIO (test code = 2234) 2.4 RATIO BILIRUBIN, TOTAL (test code = 2207) 0.5 MG/DL ALKALINE PHOSPHATASE (test code = 2204) 93 U/L AST (test code = 2218) 17 U/L ALT (test code = 221) 23 U/L Teodoro Dodge AustinAMYLASE [ADDED]2022-07-04 00:00:00* Test Item Value Reference Range Interpretation Comme nts AMYLASE (test code = 2204) 32 U/L Teodoro Dodge AustinLIPASE [ADDED]2022-07-04 00:00:00* Test Item Value Reference Range Interpretation Comme nts LIPASE (test code = 2058) 22 U/L Teodoro [id number] 06:47:26* Test Item Value Reference Range Interpretation Comme nts TESTOSTERONE (test code = 2830) 829 NG/DL 300-890 [id number] 06:47:26* Test Item Value Reference Range Interpretation Comments CEA (test code = 2645) <1.8 NG/ML See_Comment In otherwise healthy smokers, 95% of patients fall in the rangeof 0.0-5.5 ng/mL. NOTE: Methodology is [employer] ElectrochemiluminescenceImmunoassay (ECLIA). [Automated message] The system which generated this result transmitted reference range: <=3.8. The reference range was not used to interpret this result as normal/abnormal. [id number] 06:47:26* Test Item Value Reference Range Interpretation Comme nts NT-proBNP (test code = 68713) <50 PG/ML SEE BELOW If NT-ProBNP is less than 300 PG/ML, heart failure is unlikely for allages. Age.................Heart Failure Likely <50 Years...........>=450 PG/ML 50-75 Years.........>=900 PG/ML > 75 Years..........>=1800 PG/ML Methodology: [employer] Electrochemiluminescense Immunoassay UNLESS OTHERWISE INDICATED, ALL TESTING PERFORMED [facility] [employer] [address] [place] [id number] DOPE WORKER: YESSI SHETH M.D. CLIA NUMBER [id number] [facility] [place]. [id number] TSH, THIRD [id number] 06:46:17* Test Item Value Reference Range Interpretation Comme nts TSH, THIRD GENERATION (test code = 2821) 0.903 UIU/ML 0.400-4.100 PSA, [id number] 06:46:17* Test Item Value Reference Range Interpretation Comme nts PSA, TOTAL (test code = 2606) 0.27 NG/ML See_Comment NOTE: Methodolog y is [employer] Electrochemiluminescence Immunoassay traceable to WHO reference standard 96/760. [Automated message] The system which generated this result transmitted reference range: <=4.00. The reference range was not used to interpret this result as normal/abnormal. COMPREHENSIVE METABOLIC [id number] 04:00:55* Test Item Value Reference Range Interpretation Comme nts GLUCOSE (test code = 2217) 140 MG/DL 70-99 H BUN (test code = 2208) 9 MG/DL 6-20 CREATININE (test code = 2214) 0.67 MG/DL 0.80-1.40 L eGFR (2020 CKD-EPI) (test code = 89774) 113 ML/MIN/1.73 >60 CALC BUN/CREAT (test code = 2235) 13 RATIO 6-28 SODIUM (test code = 2231) 140 MEQ/L 133-146 POTASSIUM (test code = 2228) 4.1 MEQ/L 3.5-5.4 CHLORIDE (test code = 2215) 99 MEQ/L 95-107 CARBON DIOXIDE (test code = 2206) 27 MEQ/L 19-31 CALCIUM (test code = 2209) 9.7 MG/DL 8.5-10.5 PROTEIN, TOTAL (test code = 222) 6.8 G/DL 6.1-8.3 ALBUMIN (test code = 2201) 4.5 G/DL 3.5-5.2 CALC GLOBULIN (test code = 2240) 2.3 G/DL 1.9-3.7 CALC A/G RATIO (test code = 2234) 2.0 RATIO 1.0-2.6 BILIRUBIN, TOTAL (test code = 2207) 0.7 MG/DL See_Comment [Automated me ssage] The system which generated this result transmitted reference range: <=1.2. The reference range was not used to interpret this result as normal/abnormal. ALKALINE PHOSPHATASE (test code = 2203) 85 U/L 40-121 AST (test code = 2218) 14 U/L 9-50 ALT (test code = 2219) 18 U/L 5-50 LIPID [id number] 04:00:55* Test Item Value Reference Range Interpretation Comme nts CHOLESTEROL (test code = 2210) 110 MG/DL <200 TRIGLYCERIDES (test code = 2232) 130 MG/DL <150 HDL CHOLESTEROL (test code = 2220) 31 MG/DL >39 L CALC LDL CHOL (test code = 2236) 58 MG/DL <100 NOTE: CALCULATED LDL IS BASED ON MIHAI-GONSALVES METHOD WHICHINCLUDES ADJUSTABLE TRIGLYCERIDE:VLDL CHOLESTEROL RATIO.THIS FACTOR VARIES BY MEASURED TRIGLYCERIDE AND NON-HDLCHOLESTEROL CONCENTRATIONS WITH INCREASED CALCULATED LDL SEENIN HIGHER TRIGLYCERIDE OR LOWER NON-HDL SPECIMENS. FOR MOREINFORMATION, SEE CLIENT ANNOUNCEMENT AT [email or web address]-[email or web address] RISK RATIO LDL/HDL (test code = 2238) 1.87 RATIO <3.55 CBC W/AUTO DIFF WITH [id number] 03:07:43* Test Item Value Reference Range Interpretation Comme nts WBC (test code = 1001) 7.3 K/UL 3.5-11.0 RBC (test code = 1002) 5.36 M/UL 4.50-6.10 HEMOGLOBIN (test code = 1003) 14.4 G/DL 13.5-17.0 HEMATOCRIT (test code = 1004) 41.3 % 40.0-51.0 MCV (test code = 1005) 77.1 fL 80.0-99.0 L MCH (test code = 1006) 26.9 PG 25.0-33.0 MCHC (test code = 1007) 34.9 G/DL 31.0-36.0 RDW (test code = 1038) 15.5 % 11.5-15.0 H NEUTROPHILS (test code = 1008) 64.6 % LYMPHOCYTES (test code = 1010) 24.3 % MONOCYTES (test code = 1011) 8.1 % EOSINOPHILS (test code = 1012) 1.8 % BASOPHILS (test code = 1013) 0.6 % IMMATURE GRANULOCYTES (test code = 1036) 0.6 % NUCLEATED RBCS (test code = 1065) 0.0 /100 WBC'S See_Comment [Automated messa ge] The system which generated this result transmitted reference range: 0.0. The reference range was not used to interpret this result as normal/abnormal. PLATELET COUNT (test code = 1015) 192 K/UL 130-400 ABSOLUTE NEUTROPHILS (test code = 1066) 4.70 K/UL 1.50-7.50 ABSOLUTE LYMPHOCYTES (test code = 1067) 1.77 K/UL 1.00-4.00 ABSOLUTE MONOCYTES (test code = 1068) 0.59 K/UL 0.20-1.00 ABSOLUTE EOSINOPHILS (test code = 1040) 0.13 K/UL 0.00-0.50 ABSOLUTE BASOPHILS (test code = 1069) 0.04 K/UL 0.00-0.20 ABS IMMATURE GRANULOCYTES (test code = 1020) 0.04 K/UL 0.00-0.10 ABS NUCLEATED RBCS (test code = 69263) 0.00 K/UL 0.00-0.11 TESTOSTERONE [ADDED]2022-06-27 00:00:00* Test Item Value Reference Range Interpretation Comme nts TESTOSTERONE (test code = 2830) 829 NG/DL Teodoro CantuCEA [ADDED]2022-06-27 00:00:00* Test Item Value Reference Range Interpretation Comme nts CEA (test code = 2645) <1.8 NG/ML Teodoro CantuNT-proBNP [ADDED]2022-06-27 00:00:00* Test Item Value Reference Range Interpretation Comme nts NT-proBNP (test code = 73916) <50 PG/ML Teodoro CantuCBC W/AUTO DIFF WITH PLATELETS [ADDED]2022-06-27 00:00:00* Test Item Value Reference Range Interpretation Comme nts WBC (test code = 1001) 7.3 K/UL [...] = 1013) 0.6 % IMMATURE GRANULOCYTES (test code = 1036) 0.6 % NUCLEATED RBCS (test code = 1065) 0.0 /100WBC'S PLATELET COUNT (test code = 1015) 192 K/UL ABSOLUTE NEUTROPHILS (test c ode = 1066) 4.70 K/UL ABSOLUTE LYMPHOCYTES (test c ode = 1067) 1.77 K/UL ABSOLUTE MONOCYTES (test cod e = 1068) 0.59 K/UL ABSOLUTE EOSINOPHILS (test c ode = 1040) 0.13 K/UL ABSOLUTE BASOPHILS (test cod e = 1069) 0.04 K/UL ABS IMMATURE GRANULOCYTES (t est code = 1020) 0.04 K/UL ABS NUCLEATED RBCS (test cod e = 42141) 0.00 K/UL Teodoro CantuCOMPREHENSIVE METABOLIC PANEL [ADDED]2022-06-27 00:00:00* Test Item Value Reference Range Interpretation Comme nts GLUCOSE (test code = 2217) 140 MG/DL BUN (test code = 2208) 9 MG/DL CREATININE (test code = 2214) 0.67 MG/DL eGFR (2020 CKD-EPI) (test code = 90005) 113 ML/MIN/1.73 CALC BUN/CREAT (test code = 2235) 13 RATIO SODIUM (test code = 2231) 140 MEQ/L POTASSIUM (test code = 2228) 4.1 MEQ/L CHLORIDE (test code = 2215) 99 MEQ/L CARBON DIOXIDE (test code = 2206) 27 MEQ/L CALCIUM (test code = 2209) 9.7 MG/DL PROTEIN, TOTAL (test code = 2229) 6.8 G/DL ALBUMIN (test code = 2201) 4.5 G/DL CALC GLOBULIN (test code = 2240) 2.3 G/DL CALC A/G RATIO (test code = 2234) 2.0 RATIO BILIRUBIN, TOTAL (test code = 2207) 0.7 MG/DL ALKALINE PHOSPHATASE (test code = 2204) 85 U/L AST (test code = 2218) 14 U/L ALT (test code = 2219) 18 U/L Tedooro CantuLIPID PANEL [ADDED]2022-06-27 00:00:00* Test Item Value Reference Range Interpretation Comme nts CHOLESTEROL (test code = 2210) 110 MG/DL TRIGLYCERIDES (test code = 2232) 130 MG/DL HDL CHOLESTEROL (test code = 2220) 31 MG/DL CALC LDL CHOL (test code = 2237) 58 MG/DL RISK RATIO LDL/HDL (test cod e = 2238) 1.87 RATIO Teodoro CantuTSH, THIRD GENERATION [ADDED]2022-06-27 00:00:00* Test Item Value Reference Range Interpretation Comme nts TSH, THIRD GENERATION (test code = 2821) 0.903 UIU/ML Teodoro CantuCBC W/AUTO DIFF WITH PLATELETS [ADDED]2022-06-27 00:00:00* Test Item Value Reference Range Interpretation Comme nts WBC (test code = 1001) 7.3 K/UL [...] = 1013) 0.6 % IMMATURE GRANULOCYTES (test code = 1036) 0.6 % NUCLEATED RBCS (test code = 1065) 0.0 /100WBC'S PLATELET COUNT (test code = 1015) 192 K/UL ABSOLUTE NEUTROPHILS (test c ode = 1066) 4.70 K/UL ABSOLUTE LYMPHOCYTES (test c ode = 1067) 1.77 K/UL ABSOLUTE MONOCYTES (test cod e = 1068) 0.59 K/UL ABSOLUTE EOSINOPHILS (test c ode = 1040) 0.13 K/UL ABSOLUTE BASOPHILS (test cod e = 1069) 0.04 K/UL ABS IMMATURE GRANULOCYTES (t est code = 1020) 0.04 K/UL ABS NUCLEATED RBCS (test cod e = 53906) 0.00 K/UL Teodoro Dodge PepePSA, TOTAL [ADDED]2022-06-27 00:00:00* Test Item Value Reference Range Interpretation Comme nts PSA, TOTAL (test code = 2606) 0.27 NG/ML Teodoro Dodge PepeTESTOSTERONE [ADDED]2022-06-27 00:00:00* Test Item Value Reference Range Interpretation Comme nts TESTOSTERONE (test code = 2830) 829 NG/DL Teodoro Dodge PepeCBC W/AUTO DIFF WITH PLATELETS [ADDED]2022-06-27 00:00:00* Test Item Value Reference Range Interpretation Comme nts WBC (test code = 1001) 7.3 K/UL [...] = 1013) 0.6 % IMMATURE GRANULOCYTES (test code = 1036) 0.6 % NUCLEATED RBCS (test code = 1065) 0.0 /100WBC'S PLATELET COUNT (test code = 1015) 192 K/UL ABSOLUTE NEUTROPHILS (test c ode = 1066) 4.70 K/UL ABSOLUTE LYMPHOCYTES (test c ode = 1067) 1.77 K/UL ABSOLUTE MONOCYTES (test cod e = 1068) 0.59 K/UL ABSOLUTE EOSINOPHILS (test c ode = 1040) 0.13 K/UL ABSOLUTE BASOPHILS (test cod e = 1069) 0.04 K/UL ABS IMMATURE GRANULOCYTES (t est code = 1020) 0.04 K/UL ABS NUCLEATED RBCS (test cod e = 14349) 0.00 K/UL CEA [ADDED]2022-06-27 00:00:00* Test Item Value Reference Range Interpretation Comme nts CEA (test code = 2645) <1.8 NG/ML Teodoro CantuCOMPREHENSIVE METABOLIC PANEL [ADDED]2022-06-27 00:00:00* Test Item Value Reference Range Interpretation Comme nts GLUCOSE (test code = 2217) 140 MG/DL BUN (test code = 2208) 9 MG/DL CREATININE (test code = 2214) 0.67 MG/DL eGFR (2020 CKD-EPI) (test code = 57739) 113 ML/MIN/1.73 CALC BUN/CREAT (test code = 2235) 13 RATIO SODIUM (test code = 2231) 140 MEQ/L POTASSIUM (test code = 2228) 4.1 MEQ/L CHLORIDE (test code = 2215) 99 MEQ/L CARBON DIOXIDE (test code = 2206) 27 MEQ/L CALCIUM (test code = 2209) 9.7 MG/DL PROTEIN, TOTAL (test code = 2229) 6.8 G/DL ALBUMIN (test code = 2201) 4.5 G/DL CALC GLOBULIN (test code = 2240) 2.3 G/DL CALC A/G RATIO (test code = 2234) 2.0 RATIO BILIRUBIN, TOTAL (test code = 2207) 0.7 MG/DL ALKALINE PHOSPHATASE (test code = 2204) 85 U/L AST (test code = 2218) 14 U/L ALT (test code = 2219) 18 U/L LIPID PANEL [ADDED]2022-06-27 00:00:00* Test Item Value Reference Range Interpretation Comme nts CHOLESTEROL (test code = 2210) 110 MG/DL TRIGLYCERIDES (test code = 2232) 130 MG/DL HDL CHOLESTEROL (test code = 2220) 31 MG/DL CALC LDL CHOL (test code = 2237) 58 MG/DL RISK RATIO LDL/HDL (test cod e = 2238) 1.87 RATIO TSH, THIRD GENERATION [ADDED]2022-06-27 00:00:00* Test Item Value Reference Range Interpretation Comme nts TSH, THIRD GENERATION (test code = 2821) 0.903 UIU/ML PSA, TOTAL [ADDED]2022-06-27 00:00:00* Test Item Value Reference Range Interpretation Comme nts PSA, TOTAL (test code = 2606) 0.27 NG/ML TESTOSTERONE [ADDED]2022-06-27 00:00:00* Test Item Value Reference Range Interpretation Comme nts TESTOSTERONE (test code = 2830) 829 NG/DL CEA [ADDED]2022-06-27 00:00:00* Test Item Value Reference Range Interpretation Comme nts CEA (test code = 2645) <1.8 NG/ML NT-proBNP [ADDED]2022-06-27 00:00:00* Test Item Value Reference Range Interpretation Comme nts NT-proBNP (test code = 28757) <50 PG/ML CBC W/AUTO DIFF WITH PLATELETS [ADDED]2022-06-27 00:00:00* Test Item Value Reference Range Interpretation Comme nts WBC (test code = 1001) 7.3 K/UL [...] = 1013) 0.6 % IMMATURE GRANULOCYTES (test code = 1036) 0.6 % NUCLEATED RBCS (test code = 1065) 0.0 /100WBC'S PLATELET COUNT (test code = 1015) 192 K/UL ABSOLUTE NEUTROPHILS (test c ode = 1066) 4.70 K/UL ABSOLUTE LYMPHOCYTES (test c ode = 1067) 1.77 K/UL ABSOLUTE MONOCYTES (test cod e = 1068) 0.59 K/UL ABSOLUTE EOSINOPHILS (test c ode = 1040) 0.13 K/UL ABSOLUTE BASOPHILS (test cod e = 1069) 0.04 K/UL ABS IMMATURE GRANULOCYTES (t est code = 1020) 0.04 K/UL ABS NUCLEATED RBCS (test cod e = 41069) 0.00 K/UL COMPREHENSIVE METABOLIC PANEL [ADDED]2022-06-27 00:00:00* Test Item Value Reference Range Interpretation Comme nts GLUCOSE (test code = 2217) 140 MG/DL BUN (test code = 2208) 9 MG/DL CREATININE (test code = 2214) 0.67 MG/DL eGFR (2020 CKD-EPI) (test code = 18668) 113 ML/MIN/1.73 CALC BUN/CREAT (test code = 2235) 13 RATIO SODIUM (test code = 2231) 140 MEQ/L POTASSIUM (test code = 2228) 4.1 MEQ/L CHLORIDE (test code = 2215) 99 MEQ/L CARBON DIOXIDE (test code = 2206) 27 MEQ/L CALCIUM (test code = 2209) 9.7 MG/DL PROTEIN, TOTAL (test code = 2229) 6.8 G/DL ALBUMIN (test code = 2201) 4.5 G/DL CALC GLOBULIN (test code = 2240) 2.3 G/DL CALC A/G RATIO (test code = 2234) 2.0 RATIO BILIRUBIN, TOTAL (test code = 2207) 0.7 MG/DL ALKALINE PHOSPHATASE (test code = 2204) 85 U/L AST (test code = 2218) 14 U/L ALT (test code = 2219) 18 U/L NT-proBNP [ADDED]2022-06-27 00:00:00* Test Item Value Reference Range Interpretation Comme nts NT-proBNP (test code = 45171) <50 PG/ML Teodoro Dodge AustinLIPID PANEL [ADDED]2022-06-27 00:00:00* Test Item Value Reference Range Interpretation Comme nts CHOLESTEROL (test code = 2210) 110 MG/DL TRIGLYCERIDES (test code = 2232) 130 MG/DL HDL CHOLESTEROL (test code = 2220) 31 MG/DL CALC LDL CHOL (test code = 2237) 58 MG/DL RISK RATIO LDL/HDL (test cod e = 2238) 1.87 RATIO TSH, THIRD GENERATION [ADDED]2022-06-27 00:00:00* Test Item Value Reference Range Interpretation Comme nts TSH, THIRD GENERATION (test code = 2821) 0.903 UIU/ML PSA, TOTAL [ADDED]2022-06-27 00:00:00* Test Item Value Reference Range Interpretation Comme nts PSA, TOTAL (test code = 2606) 0.27 NG/ML CBC W/AUTO DIFF WITH PLATELETS [ADDED]2022-06-27 00:00:00* Test Item Value Reference Range Interpretation Comme nts WBC (test code = 1001) 7.3 K/UL [...] = 1013) 0.6 % IMMATURE GRANULOCYTES (test code = 1036) 0.6 % NUCLEATED RBCS (test code = 1065) 0.0 /100WBC'S PLATELET COUNT (test code = 1015) 192 K/UL ABSOLUTE NEUTROPHILS (test c ode = 1066) 4.70 K/UL ABSOLUTE LYMPHOCYTES (test c ode = 1067) 1.77 K/UL ABSOLUTE MONOCYTES (test cod e = 1068) 0.59 K/UL ABSOLUTE EOSINOPHILS (test c ode = 1040) 0.13 K/UL ABSOLUTE BASOPHILS (test cod e = 1069) 0.04 K/UL ABS IMMATURE GRANULOCYTES (t est code = 1020) 0.04 K/UL ABS NUCLEATED RBCS (test cod e = 14194) 0.00 K/UL Teodoro F AustinTESTOSTERONE [ADDED]2022-06-27 00:00:00* Test Item Value Reference Range Interpretation Comme nts TESTOSTERONE (test code = 2830) 829 NG/DL CEA [ADDED]2022-06-27 00:00:00* Test Item Value Reference Range Interpretation Comme nts CEA (test code = 2645) <1.8 NG/ML NT-proBNP [ADDED]2022-06-27 00:00:00* Test Item Value Reference Range Interpretation Comme nts NT-proBNP (test code = 72134) <50 PG/ML CBC W/AUTO DIFF WITH PLATELETS [ADDED]2022-06-27 00:00:00* Test Item Value Reference Range Interpretation Comme nts WBC (test code = 1001) 7.3 K/UL [...] = 1013) 0.6 % IMMATURE GRANULOCYTES (test code = 1036) 0.6 % NUCLEATED RBCS (test code = 1065) 0.0 /100WBC'S PLATELET COUNT (test code = 1015) 192 K/UL ABSOLUTE NEUTROPHILS (test c ode = 1066) 4.70 K/UL ABSOLUTE LYMPHOCYTES (test c ode = 1067) 1.77 K/UL ABSOLUTE MONOCYTES (test cod e = 1068) 0.59 K/UL ABSOLUTE EOSINOPHILS (test c ode = 1040) 0.13 K/UL ABSOLUTE BASOPHILS (test cod e = 1069) 0.04 K/UL ABS IMMATURE GRANULOCYTES (t est code = 1020) 0.04 K/UL ABS NUCLEATED RBCS (test cod e = 93596) 0.00 K/UL COMPREHENSIVE METABOLIC PANEL [ADDED]2022-06-27 00:00:00* Test Item Value Reference Range Interpretation Comme nts GLUCOSE (test code = 2217) 140 MG/DL BUN (test code = 2208) 9 MG/DL CREATININE (test code = 2214) 0.67 MG/DL eGFR (2020 CKD-EPI) (test code = 18872) 113 ML/MIN/1.73 CALC BUN/CREAT (test code = 2235) 13 RATIO SODIUM (test code = 2231) 140 MEQ/L POTASSIUM (test code = 2228) 4.1 MEQ/L CHLORIDE (test code = 2215) 99 MEQ/L CARBON DIOXIDE (test code = 2206) 27 MEQ/L CALCIUM (test code = 2209) 9.7 MG/DL PROTEIN, TOTAL (test code = 2229) 6.8 G/DL ALBUMIN (test code = 2201) 4.5 G/DL CALC GLOBULIN (test code = 2240) 2.3 G/DL CALC A/G RATIO (test code = 2234) 2.0 RATIO BILIRUBIN, TOTAL (test code = 2207) 0.7 MG/DL ALKALINE PHOSPHATASE (test code = 2204) 85 U/L AST (test code = 2218) 14 U/L ALT (test code = 2219) 18 U/L LIPID PANEL [ADDED]2022-06-27 00:00:00* Test Item Value Reference Range Interpretation Comme nts CHOLESTEROL (test code = 2210) 110 MG/DL TRIGLYCERIDES (test code = 2232) 130 MG/DL HDL CHOLESTEROL (test code = 2220) 31 MG/DL CALC LDL CHOL (test code = 2237) 58 MG/DL RISK RATIO LDL/HDL (test cod e = 2238) 1.87 RATIO TSH, THIRD GENERATION [ADDED]2022-06-27 00:00:00* Test Item Value Reference Range Interpretation Comme nts TSH, THIRD GENERATION (test code = 2821) 0.903 UIU/ML PSA, TOTAL [ADDED]2022-06-27 00:00:00* Test Item Value Reference Range Interpretation Comme nts PSA, TOTAL (test code = 2606) 0.27 NG/ML TESTOSTERONE [ADDED]2022-06-27 00:00:00* Test Item Value Reference Range Interpretation Comme nts TESTOSTERONE (test code = 2830) 829 NG/DL CEA [ADDED]2022-06-27 00:00:00* Test Item Value Reference Range Interpretation Comme nts CEA (test code = 2645) <1.8 NG/ML NT-proBNP [ADDED]2022-06-27 00:00:00* Test Item Value Reference Range Interpretation Comme nts NT-proBNP (test code = 42578) <50 PG/ML CBC W/AUTO DIFF WITH PLATELETS [ADDED]2022-06-27 00:00:00* Test Item Value Reference Range Interpretation Comme nts WBC (test code = 1001) 7.3 K/UL [...] = 1013) 0.6 % IMMATURE GRANULOCYTES (test code = 1036) 0.6 % NUCLEATED RBCS (test code = 1065) 0.0 /100WBC'S PLATELET COUNT (test code = 1015) 192 K/UL ABSOLUTE NEUTROPHILS (test c ode = 1066) 4.70 K/UL ABSOLUTE LYMPHOCYTES (test c ode = 1067) 1.77 K/UL ABSOLUTE MONOCYTES (test cod e = 1068) 0.59 K/UL ABSOLUTE EOSINOPHILS (test c ode = 1040) 0.13 K/UL ABSOLUTE BASOPHILS (test cod e = 1069) 0.04 K/UL ABS IMMATURE GRANULOCYTES (t est code = 1020) 0.04 K/UL ABS NUCLEATED RBCS (test cod e = 70831) 0.00 K/UL COMPREHENSIVE METABOLIC PANEL [ADDED]2022-06-27 00:00:00* Test Item Value Reference Range Interpretation Comme nts GLUCOSE (test code = 2217) 140 MG/DL BUN (test code = 2208) 9 MG/DL CREATININE (test code = 2214) 0.67 MG/DL eGFR (2020 CKD-EPI) (test code = 82580) 113 ML/MIN/1.73 CALC BUN/CREAT (test code = 2235) 13 RATIO SODIUM (test code = 2231) 140 MEQ/L POTASSIUM (test code = 2228) 4.1 MEQ/L CHLORIDE (test code = 2215) 99 MEQ/L CARBON DIOXIDE (test code = 2206) 27 MEQ/L CALCIUM (test code = 2209) 9.7 MG/DL PROTEIN, TOTAL (test code = 2229) 6.8 G/DL ALBUMIN (test code = 2201) 4.5 G/DL CALC GLOBULIN (test code = 2240) 2.3 G/DL CALC A/G RATIO (test code = 2234) 2.0 RATIO BILIRUBIN, TOTAL (test code = 2207) 0.7 MG/DL ALKALINE PHOSPHATASE (test code = 2204) 85 U/L AST (test code = 2218) 14 U/L ALT (test code = 2219) 18 U/L LIPID PANEL [ADDED]2022-06-27 00:00:00* Test Item Value Reference Range Interpretation Comme nts CHOLESTEROL (test code = 2210) 110 MG/DL TRIGLYCERIDES (test code = 2232) 130 MG/DL HDL CHOLESTEROL (test code = 2220) 31 MG/DL CALC LDL CHOL (test code = 2237) 58 MG/DL RISK RATIO LDL/HDL (test cod e = 2238) 1.87 RATIO TSH, THIRD GENERATION [ADDED]2022-06-27 00:00:00* Test Item Value Reference Range Interpretation Comme nts TSH, THIRD GENERATION (test code = 2821) 0.903 UIU/ML PSA, TOTAL [ADDED]2022-06-27 00:00:00* Test Item Value Reference Range Interpretation Comme nts PSA, TOTAL (test code = 2606) 0.27 NG/ML TESTOSTERONE [ADDED]2022-06-27 00:00:00* Test Item Value Reference Range Interpretation Comme nts TESTOSTERONE (test code = 2830) 829 NG/DL CEA [ADDED]2022-06-27 00:00:00* Test Item Value Reference Range Interpretation Comme nts CEA (test code = 2645) <1.8 NG/ML NT-proBNP [ADDED]2022-06-27 00:00:00* Test Item Value Reference Range Interpretation Comme nts NT-proBNP (test code = 12346) <50 PG/ML CBC W/AUTO DIFF WITH PLATELETS [ADDED]2022-06-27 00:00:00* Test Item Value Reference Range Interpretation Comme nts WBC (test code = 1001) 7.3 K/UL [...] = 1013) 0.6 % IMMATURE GRANULOCYTES (test code = 1036) 0.6 % NUCLEATED RBCS (test code = 1065) 0.0 /100WBC'S PLATELET COUNT (test code = 1015) 192 K/UL ABSOLUTE NEUTROPHILS (test c ode = 1066) 4.70 K/UL ABSOLUTE LYMPHOCYTES (test c ode = 1067) 1.77 K/UL ABSOLUTE MONOCYTES (test cod e = 1068) 0.59 K/UL ABSOLUTE EOSINOPHILS (test c ode = 1040) 0.13 K/UL ABSOLUTE BASOPHILS (test cod e = 1069) 0.04 K/UL ABS IMMATURE GRANULOCYTES (t est code = 1020) 0.04 K/UL ABS NUCLEATED RBCS (test cod e = 35407) 0.00 K/UL COMPREHENSIVE METABOLIC PANEL [ADDED]2022-06-27 00:00:00* Test Item Value Reference Range Interpretation Comme nts GLUCOSE (test code = 2217) 140 MG/DL BUN (test code = 2208) 9 MG/DL CREATININE (test code = 2214) 0.67 MG/DL eGFR (2020 CKD-EPI) (test code = 54605) 113 ML/MIN/1.73 CALC BUN/CREAT (test code = 2235) 13 RATIO SODIUM (test code = 2231) 140 MEQ/L POTASSIUM (test code = 2228) 4.1 MEQ/L CHLORIDE (test code = 2215) 99 MEQ/L CARBON DIOXIDE (test code = 2206) 27 MEQ/L CALCIUM (test code = 2209) 9.7 MG/DL PROTEIN, TOTAL (test code = 2229) 6.8 G/DL ALBUMIN (test code = 2201) 4.5 G/DL CALC GLOBULIN (test code = 2240) 2.3 G/DL CALC A/G RATIO (test code = 2234) 2.0 RATIO BILIRUBIN, TOTAL (test code = 2207) 0.7 MG/DL ALKALINE PHOSPHATASE (test code = 2204) 85 U/L AST (test code = 2218) 14 U/L ALT (test code = 2219) 18 U/L LIPID PANEL [ADDED]2022-06-27 00:00:00* Test Item Value Reference Range Interpretation Comme nts CHOLESTEROL (test code = 2210) 110 MG/DL TRIGLYCERIDES (test code = 2232) 130 MG/DL HDL CHOLESTEROL (test code = 2220) 31 MG/DL CALC LDL CHOL (test code = 2237) 58 MG/DL RISK RATIO LDL/HDL (test cod e = 2238) 1.87 RATIO TSH, THIRD GENERATION [ADDED]2022-06-27 00:00:00* Test Item Value Reference Range Interpretation Comme nts TSH, THIRD GENERATION (test code = 2821) 0.903 UIU/ML PSA, TOTAL [ADDED]2022-06-27 00:00:00* Test Item Value Reference Range Interpretation Comme nts PSA, TOTAL (test code = 2606) 0.27 NG/ML TESTOSTERONE [ADDED]2022-06-27 00:00:00* Test Item Value Reference Range Interpretation Comme nts TESTOSTERONE (test code = 2830) 829 NG/DL CEA [ADDED]2022-06-27 00:00:00* Test Item Value Reference Range Interpretation Comme nts CEA (test code = 2645) <1.8 NG/ML NT-proBNP [ADDED]2022-06-27 00:00:00* Test Item Value Reference Range Interpretation Comme nts NT-proBNP (test code = 14365) <50 PG/ML CBC W/AUTO DIFF WITH PLATELETS [ADDED]2022-06-27 00:00:00* Test Item Value Reference Range Interpretation Comme nts WBC (test code = 1001) 7.3 K/UL [...] = 1013) 0.6 % IMMATURE GRANULOCYTES (test code = 1036) 0.6 % NUCLEATED RBCS (test code = 1065) 0.0 /100WBC'S PLATELET COUNT (test code = 1015) 192 K/UL ABSOLUTE NEUTROPHILS (test c ode = 1066) 4.70 K/UL ABSOLUTE LYMPHOCYTES (test c ode = 1067) 1.77 K/UL ABSOLUTE MONOCYTES (test cod e = 1068) 0.59 K/UL ABSOLUTE EOSINOPHILS (test c ode = 1040) 0.13 K/UL ABSOLUTE BASOPHILS (test cod e = 1069) 0.04 K/UL ABS IMMATURE GRANULOCYTES (t est code = 1020) 0.04 K/UL ABS NUCLEATED RBCS (test cod e = 92999) 0.00 K/UL COMPREHENSIVE METABOLIC PANEL [ADDED]2022-06-27 00:00:00* Test Item Value Reference Range Interpretation Comme nts GLUCOSE (test code = 2217) 140 MG/DL BUN (test code = 2208) 9 MG/DL CREATININE (test code = 2214) 0.67 MG/DL eGFR (2020 CKD-EPI) (test code = 09036) 113 ML/MIN/1.73 CALC BUN/CREAT (test code = 2235) 13 RATIO SODIUM (test code = 2231) 140 MEQ/L POTASSIUM (test code = 2228) 4.1 MEQ/L CHLORIDE (test code = 2215) 99 MEQ/L CARBON DIOXIDE (test code = 2206) 27 MEQ/L CALCIUM (test code = 2209) 9.7 MG/DL PROTEIN, TOTAL (test code = 2229) 6.8 G/DL ALBUMIN (test code = 2201) 4.5 G/DL CALC GLOBULIN (test code = 2240) 2.3 G/DL CALC A/G RATIO (test code = 2234) 2.0 RATIO BILIRUBIN, TOTAL (test code = 2207) 0.7 MG/DL ALKALINE PHOSPHATASE (test code = 2204) 85 U/L AST (test code = 2218) 14 U/L ALT (test code = 2219) 18 U/L LIPID PANEL [ADDED]2022-06-27 00:00:00* Test Item Value Reference Range Interpretation Comme nts CHOLESTEROL (test code = 2210) 110 MG/DL TRIGLYCERIDES (test code = 2232) 130 MG/DL HDL CHOLESTEROL (test code = 2220) 31 MG/DL CALC LDL CHOL (test code = 2237) 58 MG/DL RISK RATIO LDL/HDL (test cod e = 2238) 1.87 RATIO TSH, THIRD GENERATION [ADDED]2022-06-27 00:00:00* Test Item Value Reference Range Interpretation Comme nts TSH, THIRD GENERATION (test code = 2821) 0.903 UIU/ML PSA, TOTAL [ADDED]2022-06-27 00:00:00* Test Item Value Reference Range Interpretation Comme nts PSA, TOTAL (test code = 2606) 0.27 NG/ML TESTOSTERONE [ADDED]2022-06-27 00:00:00* Test Item Value Reference Range Interpretation Comme nts TESTOSTERONE (test code = 2830) 829 NG/DL CEA [ADDED]2022-06-27 00:00:00* Test Item Value Reference Range Interpretation Comme nts CEA (test code = 2645) <1.8 NG/ML NT-proBNP [ADDED]2022-06-27 00:00:00* Test Item Value Reference Range Interpretation Comme nts NT-proBNP (test code = 17225) <50 PG/ML COMPREHENSIVE METABOLIC PANEL [ADDED]2022-06-27 00:00:00* Test Item Value Reference Range Interpretation Comme nts GLUCOSE (test code = 2217) 140 MG/DL BUN (test code = 2208) 9 MG/DL CREATININE (test code = 2214) 0.67 MG/DL eGFR (2020 CKD-EPI) (test code = 84278) 113 ML/MIN/1.73 CALC BUN/CREAT (test code = 2235) 13 RATIO SODIUM (test code = 2231) 140 MEQ/L POTASSIUM (test code = 2228) 4.1 MEQ/L CHLORIDE (test code = 2215) 99 MEQ/L CARBON DIOXIDE (test code = 2206) 27 MEQ/L CALCIUM (test code = 2209) 9.7 MG/DL PROTEIN, TOTAL (test code = 2229) 6.8 G/DL ALBUMIN (test code = 2201) 4.5 G/DL CALC GLOBULIN (test code = 2240) 2.3 G/DL CALC A/G RATIO (test code = 2234) 2.0 RATIO BILIRUBIN, TOTAL (test code = 2207) 0.7 MG/DL ALKALINE PHOSPHATASE (test code = 2204) 85 U/L AST (test code = 2218) 14 U/L ALT (test code = 2219) 18 U/L Teodoro CantuLIPID PANEL [ADDED]2022-06-27 00:00:00* Test Item Value Reference Range Interpretation Comme nts CHOLESTEROL (test code = 2210) 110 MG/DL TRIGLYCERIDES (test code = 2232) 130 MG/DL HDL CHOLESTEROL (test code = 2220) 31 MG/DL CALC LDL CHOL (test code = 2237) 58 MG/DL RISK RATIO LDL/HDL (test cod e = 2238) 1.87 RATIO Teodoro CantuTSH, THIRD GENERATION [ADDED]2022-06-27 00:00:00* Test Item Value Reference Range Interpretation Comme nts TSH, THIRD GENERATION (test code = 2821) 0.903 UIU/ML Teodoro CantuPSA, TOTAL [ADDED]2022-06-27 00:00:00* Test Item Value Reference Range Interpretation Comme nts PSA, TOTAL (test code = 2606) 0.27 NG/ML Teodoro CantuTESTOSTERONE [ADDED]2022-06-27 00:00:00* Test Item Value Reference Range Interpretation Comme nts TESTOSTERONE (test code = 2830) 829 NG/DL Teodoro CantuCEA [ADDED]2022-06-27 00:00:00* Test Item Value Reference Range Interpretation Comme nts CEA (test code = 2645) <1.8 NG/ML Teodoro CantuNT-proBNP [ADDED]2022-06-27 00:00:00* Test Item Value Reference Range Interpretation Comme nts NT-proBNP (test code = 85323) <50 PG/ML Teodoro CantuCBC W/AUTO DIFF WITH PLATELETS [ADDED]2022-06-27 00:00:00* Test Item Value Reference Range Interpretation Comme nts WBC (test code = 1001) 7.3 K/UL [...] = 1013) 0.6 % IMMATURE GRANULOCYTES (test code = 1036) 0.6 % NUCLEATED RBCS (test code = 1065) 0.0 /100WBC'S PLATELET COUNT (test code = 1015) 192 K/UL ABSOLUTE NEUTROPHILS (test c ode = 1066) 4.70 K/UL ABSOLUTE LYMPHOCYTES (test c ode = 1067) 1.77 K/UL ABSOLUTE MONOCYTES (test cod e = 1068) 0.59 K/UL ABSOLUTE EOSINOPHILS (test c ode = 1040) 0.13 K/UL ABSOLUTE BASOPHILS (test cod e = 1069) 0.04 K/UL ABS IMMATURE GRANULOCYTES (t est code = 1020) 0.04 K/UL ABS NUCLEATED RBCS (test cod e = 01232) 0.00 K/UL Teodoro CantuCOMPREHENSIVE METABOLIC PANEL [ADDED]2022-06-27 00:00:00* Test Item Value Reference Range Interpretation Comme nts GLUCOSE (test code = 2217) 140 MG/DL BUN (test code = 2208) 9 MG/DL CREATININE (test code = 2214) 0.67 MG/DL eGFR (2020 CKD-EPI) (test code = 50747) 113 ML/MIN/1.73 CALC BUN/CREAT (test code = 2235) 13 RATIO SODIUM (test code = 2231) 140 MEQ/L POTASSIUM (test code = 2228) 4.1 MEQ/L CHLORIDE (test code = 2215) 99 MEQ/L CARBON DIOXIDE (test code = 2206) 27 MEQ/L CALCIUM (test code = 2209) 9.7 MG/DL PROTEIN, TOTAL (test code = 2229) 6.8 G/DL ALBUMIN (test code = 2201) 4.5 G/DL CALC GLOBULIN (test code = 2240) 2.3 G/DL CALC A/G RATIO (test code = 2234) 2.0 RATIO BILIRUBIN, TOTAL (test code = 2207) 0.7 MG/DL ALKALINE PHOSPHATASE (test code = 2204) 85 U/L AST (test code = 2218) 14 U/L ALT (test code = 2219) 18 U/L Teodoro Dodge PepeCOMPREHENSIVE METABOLIC PANEL [ADDED]2022-06-27 00:00:00* Test Item Value Reference Range Interpretation Comme nts GLUCOSE (test code = 2217) 140 MG/DL BUN (test code = 2208) 9 MG/DL CREATININE (test code = 2214) 0.67 MG/DL eGFR (2020 CKD-EPI) (test code = 46203) 113 ML/MIN/1.73 CALC BUN/CREAT (test code = 2235) 13 RATIO SODIUM (test code = 2231) 140 MEQ/L POTASSIUM (test code = 2228) 4.1 MEQ/L CHLORIDE (test code = 2215) 99 MEQ/L CARBON DIOXIDE (test code = 2206) 27 MEQ/L CALCIUM (test code = 2209) 9.7 MG/DL PROTEIN, TOTAL (test code = 2229) 6.8 G/DL ALBUMIN (test code = 2201) 4.5 G/DL CALC GLOBULIN (test code = 2240) 2.3 G/DL CALC A/G RATIO (test code = 2234) 2.0 RATIO BILIRUBIN, TOTAL (test code = 2207) 0.7 MG/DL ALKALINE PHOSPHATASE (test code = 2204) 85 U/L AST (test code = 2218) 14 U/L ALT (test code = 2219) 18 U/L Teodoro Dodge AustinLIPID PANEL [ADDED]2022-06-27 00:00:00* Test Item Value Reference Range Interpretation Comme nts CHOLESTEROL (test code = 2210) 110 MG/DL TRIGLYCERIDES (test code = 2232) 130 MG/DL HDL CHOLESTEROL (test code = 2220) 31 MG/DL CALC LDL CHOL (test code = 2237) 58 MG/DL RISK RATIO LDL/HDL (test cod e = 2238) 1.87 RATIO Teodoro Echo PepeTSH, THIRD GENERATION [ADDED]2022-06-27 00:00:00* Test Item Value Reference Range Interpretation Comme nts TSH, THIRD GENERATION (test code = 2821) 0.903 UIU/ML Teodoro CantuPSA, TOTAL [ADDED]2022-06-27 00:00:00* Test Item Value Reference Range Interpretation Comme nts PSA, TOTAL (test code = 2606) 0.27 NG/ML Teodoro CantuTESTOSTERONE [ADDED]2022-06-27 00:00:00* Test Item Value Reference Range Interpretation Comme nts TESTOSTERONE (test code = 2830) 829 NG/DL Teodoro CantuCEA [ADDED]2022-06-27 00:00:00* Test Item Value Reference Range Interpretation Comme nts CEA (test code = 2645) <1.8 NG/ML Teodoro CantuNT-proBNP [ADDED]2022-06-27 00:00:00* Test Item Value Reference Range Interpretation Comme nts NT-proBNP (test code = 24933) <50 PG/ML Teodoro CantuCBC W/AUTO DIFF WITH PLATELETS [ADDED]2022-06-27 00:00:00* Test Item Value Reference Range Interpretation Comme nts WBC (test code = 1001) 7.3 K/UL [...] = 1013) 0.6 % IMMATURE GRANULOCYTES (test code = 1036) 0.6 % NUCLEATED RBCS (test code = 1065) 0.0 /100WBC'S PLATELET COUNT (test code = 1015) 192 K/UL ABSOLUTE NEUTROPHILS (test c ode = 1066) 4.70 K/UL ABSOLUTE LYMPHOCYTES (test c ode = 1067) 1.77 K/UL ABSOLUTE MONOCYTES (test cod e = 1068) 0.59 K/UL ABSOLUTE EOSINOPHILS (test c ode = 1040) 0.13 K/UL ABSOLUTE BASOPHILS (test cod e = 1069) 0.04 K/UL ABS IMMATURE GRANULOCYTES (t est code = 1020) 0.04 K/UL ABS NUCLEATED RBCS (test cod e = 16528) 0.00 K/UL Teodoro Dodge PepeCOMPREHENSIVE METABOLIC PANEL [ADDED]2022-06-27 00:00:00* Test Item Value Reference Range Interpretation Comme nts GLUCOSE (test code = 2217) 140 MG/DL BUN (test code = 2208) 9 MG/DL CREATININE (test code = 2214) 0.67 MG/DL eGFR (2020 CKD-EPI) (test code = 73491) 113 ML/MIN/1.73 CALC BUN/CREAT (test code = 2235) 13 RATIO SODIUM (test code = 2231) 140 MEQ/L POTASSIUM (test code = 2228) 4.1 MEQ/L CHLORIDE (test code = 2215) 99 MEQ/L CARBON DIOXIDE (test code = 2206) 27 MEQ/L CALCIUM (test code = 2209) 9.7 MG/DL PROTEIN, TOTAL (test code = 2229) 6.8 G/DL ALBUMIN (test code = 2201) 4.5 G/DL CALC GLOBULIN (test code = 2240) 2.3 G/DL CALC A/G RATIO (test code = 2234) 2.0 RATIO BILIRUBIN, TOTAL (test code = 2207) 0.7 MG/DL ALKALINE PHOSPHATASE (test code = 2204) 85 U/L AST (test code = 2218) 14 U/L ALT (test code = 2219) 18 U/L Teodoro Dodge PepeLIPID PANEL [ADDED]2022-06-27 00:00:00* Test Item Value Reference Range Interpretation Comme nts CHOLESTEROL (test code = 2210) 110 MG/DL TRIGLYCERIDES (test code = 2232) 130 MG/DL HDL CHOLESTEROL (test code = 2220) 31 MG/DL CALC LDL CHOL (test code = 2237) 58 MG/DL RISK RATIO LDL/HDL (test cod e = 2238) 1.87 RATIO Teodoro Dodge PepeTSH, THIRD GENERATION [ADDED]2022-06-27 00:00:00* Test Item Value Reference Range Interpretation Comme nts TSH, THIRD GENERATION (test code = 2821) 0.903 UIU/ML Teodoro CantuPSA, TOTAL [ADDED]2022-06-27 00:00:00* Test Item Value Reference Range Interpretation Comme nts PSA, TOTAL (test code = 2606) 0.27 NG/ML Teodoro Dodge AustinTESTOSTERONE [ADDED]2022-06-27 00:00:00* Test Item Value Reference Range Interpretation Comme nts TESTOSTERONE (test code = 2830) 829 NG/DL Teodoro Dodge AustinCEA [ADDED]2022-06-27 00:00:00* Test Item Value Reference Range Interpretation Comme nts CEA (test code = 2645) <1.8 NG/ML Teodoro Dodge AustinNT-proBNP [ADDED]2022-06-27 00:00:00* Test Item Value Reference Range Interpretation Comme nts NT-proBNP (test code = 23004) <50 PG/ML Teodoro CantuLIPID PANEL [ADDED]2022-06-27 00:00:00* Test Item Value Reference Range Interpretation Comme nts CHOLESTEROL (test code = 2210) 110 MG/DL TRIGLYCERIDES (test code = 2232) 130 MG/DL HDL CHOLESTEROL (test code = 2220) 31 MG/DL CALC LDL CHOL (test code = 2237) 58 MG/DL RISK RATIO LDL/HDL (test cod e = 2238) 1.87 RATIO Teodoro CantuTSH, THIRD GENERATION [ADDED]2022-06-27 00:00:00* Test Item Value Reference Range Interpretation Comme nts TSH, THIRD GENERATION (test code = 2821) 0.903 UIU/ML Teodoro CantuPSA, TOTAL [ADDED]2022-06-27 00:00:00* Test Item Value Reference Range Interpretation Comme nts PSA, TOTAL (test code = 2606) 0.27 NG/ML Teodoro Dodge AustinTESTOSTERONE [ADDED]2022-06-27 00:00:00* Test Item Value Reference Range Interpretation Comme nts TESTOSTERONE (test code = 2830) 829 NG/DL Teodoro Dodge AustinCEA [ADDED]2022-06-27 00:00:00* Test Item Value Reference Range Interpretation Comme nts CEA (test code = 2645) <1.8 NG/ML Teodoro Dodge AustinNT-proBNP [ADDED]2022-06-27 00:00:00* Test Item Value Reference Range Interpretation Comme nts NT-proBNP (test code = 14946) <50 PG/ML Teodoro CantuCBC W/AUTO DIFF WITH PLATELETS [ADDED]2022-06-27 00:00:00* Test Item Value Reference Range Interpretation Comme nts WBC (test code = 1001) 7.3 K/UL [...] = 1013) 0.6 % IMMATURE GRANULOCYTES (test code = 1036) 0.6 % NUCLEATED RBCS (test code = 1065) 0.0 /100WBC'S PLATELET COUNT (test code = 1015) 192 K/UL ABSOLUTE NEUTROPHILS (test c ode = 1066) 4.70 K/UL ABSOLUTE LYMPHOCYTES (test c ode = 1067) 1.77 K/UL ABSOLUTE MONOCYTES (test cod e = 1068) 0.59 K/UL ABSOLUTE EOSINOPHILS (test c ode = 1040) 0.13 K/UL ABSOLUTE BASOPHILS (test cod e = 1069) 0.04 K/UL ABS IMMATURE GRANULOCYTES (t est code = 1020) 0.04 K/UL ABS NUCLEATED RBCS (test cod e = 39619) 0.00 K/UL Teodoro CantuCOMPREHENSIVE METABOLIC PANEL [ADDED]2022-06-27 00:00:00* Test Item Value Reference Range Interpretation Comme nts GLUCOSE (test code = 2217) 140 MG/DL BUN (test code = 2208) 9 MG/DL CREATININE (test code = 2214) 0.67 MG/DL eGFR (2020 CKD-EPI) (test code = 67960) 113 ML/MIN/1.73 CALC BUN/CREAT (test code = 2235) 13 RATIO SODIUM (test code = 2231) 140 MEQ/L POTASSIUM (test code = 2228) 4.1 MEQ/L CHLORIDE (test code = 2215) 99 MEQ/L CARBON DIOXIDE (test code = 2206) 27 MEQ/L CALCIUM (test code = 2209) 9.7 MG/DL PROTEIN, TOTAL (test code = 2229) 6.8 G/DL ALBUMIN (test code = 2201) 4.5 G/DL CALC GLOBULIN (test code = 2240) 2.3 G/DL CALC A/G RATIO (test code = 2234) 2.0 RATIO BILIRUBIN, TOTAL (test code = 2207) 0.7 MG/DL ALKALINE PHOSPHATASE (test code = 2204) 85 U/L AST (test code = 2218) 14 U/L ALT (test code = 2219) 18 U/L Teodoro CantuLIPID PANEL [ADDED]2022-06-27 00:00:00* Test Item Value Reference Range Interpretation Comme nts CHOLESTEROL (test code = 2210) 110 MG/DL TRIGLYCERIDES (test code = 2232) 130 MG/DL HDL CHOLESTEROL (test code = 2220) 31 MG/DL CALC LDL CHOL (test code = 2237) 58 MG/DL RISK RATIO LDL/HDL (test cod e = 2238) 1.87 RATIO Teodoro CantuTSH, THIRD GENERATION [ADDED]2022-06-27 00:00:00* Test Item Value Reference Range Interpretation Comme nts TSH, THIRD GENERATION (test code = 2821) 0.903 UIU/ML Teodoro CantuPSA, TOTAL [ADDED]2022-06-27 00:00:00* Test Item Value Reference Range Interpretation Comme nts PSA, TOTAL (test code = 2606) 0.27 NG/ML Teodoro CantuTESTOSTERONE [ADDED]2022-06-27 00:00:00* Test Item Value Reference Range Interpretation Comme nts TESTOSTERONE (test code = 2830) 829 NG/DL Teodoro CantuCEA [ADDED]2022-06-27 00:00:00* Test Item Value Reference Range Interpretation Comme nts CEA (test code = 2645) <1.8 NG/ML Teodoro Dodge PepeNT-proBNP [ADDED]2022-06-27 00:00:00* Test Item Value Reference Range Interpretation Comme nts NT-proBNP (test code = 97596) <50 PG/ML Teodoro Dodge PepeCBC W/AUTO DIFF WITH PLATELETS [ADDED]2022-06-27 00:00:00* Test Item Value Reference Range Interpretation Comme nts WBC (test code = 1001) 7.3 K/UL [...] = 1013) 0.6 % IMMATURE GRANULOCYTES (test code = 1036) 0.6 % NUCLEATED RBCS (test code = 1065) 0.0 /100WBC'S PLATELET COUNT (test code = 1015) 192 K/UL ABSOLUTE NEUTROPHILS (test c ode = 1066) 4.70 K/UL ABSOLUTE LYMPHOCYTES (test c ode = 1067) 1.77 K/UL ABSOLUTE MONOCYTES (test cod e = 1068) 0.59 K/UL ABSOLUTE EOSINOPHILS (test c ode = 1040) 0.13 K/UL ABSOLUTE BASOPHILS (test cod e = 1069) 0.04 K/UL ABS IMMATURE GRANULOCYTES (t est code = 1020) 0.04 K/UL ABS NUCLEATED RBCS (test cod e = 81476) 0.00 K/UL Teodoro CantuCOMPREHENSIVE METABOLIC PANEL [ADDED]2022-06-27 00:00:00* Test Item Value Reference Range Interpretation Comme nts GLUCOSE (test code = 2217) 140 MG/DL BUN (test code = 2208) 9 MG/DL CREATININE (test code = 2214) 0.67 MG/DL eGFR (2020 CKD-EPI) (test code = 16967) 113 ML/MIN/1.73 CALC BUN/CREAT (test code = 2235) 13 RATIO SODIUM (test code = 2231) 140 MEQ/L POTASSIUM (test code = 2228) 4.1 MEQ/L CHLORIDE (test code = 2215) 99 MEQ/L CARBON DIOXIDE (test code = 2206) 27 MEQ/L CALCIUM (test code = 2209) 9.7 MG/DL PROTEIN, TOTAL (test code = 2229) 6.8 G/DL ALBUMIN (test code = 2201) 4.5 G/DL CALC GLOBULIN (test code = 2240) 2.3 G/DL CALC A/G RATIO (test code = 2234) 2.0 RATIO BILIRUBIN, TOTAL (test code = 2207) 0.7 MG/DL ALKALINE PHOSPHATASE (test code = 2204) 85 U/L AST (test code = 2218) 14 U/L ALT (test code = 2219) 18 U/L Teodoro CantuLIPID PANEL [ADDED]2022-06-27 00:00:00* Test Item Value Reference Range Interpretation Comme nts CHOLESTEROL (test code = 2210) 110 MG/DL TRIGLYCERIDES (test code = 2232) 130 MG/DL HDL CHOLESTEROL (test code = 2220) 31 MG/DL CALC LDL CHOL (test code = 2237) 58 MG/DL RISK RATIO LDL/HDL (test cod e = 2238) 1.87 RATIO Teodoro CantuTSH, THIRD GENERATION [ADDED]2022-06-27 00:00:00* Test Item Value Reference Range Interpretation Comme nts TSH, THIRD GENERATION (test code = 2821) 0.903 UIU/ML Teodoro CantuPSA, TOTAL [ADDED]2022-06-27 00:00:00* Test Item Value Reference Range Interpretation Comme nts PSA, TOTAL (test code = 2606) 0.27 NG/ML Teodoro CantuTESTOSTERONE [ADDED]2022-06-27 00:00:00* Test Item Value Reference Range Interpretation Comme nts TESTOSTERONE (test code = 2830) 829 NG/DL Teodoro CantuCEA [ADDED]2022-06-27 00:00:00* Test Item Value Reference Range Interpretation Comme nts CEA (test code = 2645) <1.8 NG/ML Teodoro CantuNT-proBNP [ADDED]2022-06-27 00:00:00* Test Item Value Reference Range Interpretation Comme nts NT-proBNP (test code = 22027) <50 PG/ML Teodoro CantuCBC W/AUTO DIFF WITH PLATELETS [ADDED]2022-06-27 00:00:00* Test Item Value Reference Range Interpretation Comme nts WBC (test code = 1001) 7.3 K/UL [...] = 1013) 0.6 % IMMATURE GRANULOCYTES (test code = 1036) 0.6 % NUCLEATED RBCS (test code = 1065) 0.0 /100WBC'S PLATELET COUNT (test code = 1015) 192 K/UL ABSOLUTE NEUTROPHILS (test c ode = 1066) 4.70 K/UL ABSOLUTE LYMPHOCYTES (test c ode = 1067) 1.77 K/UL ABSOLUTE MONOCYTES (test cod e = 1068) 0.59 K/UL ABSOLUTE EOSINOPHILS (test c ode = 1040) 0.13 K/UL ABSOLUTE BASOPHILS (test cod e = 1069) 0.04 K/UL ABS IMMATURE GRANULOCYTES (t est code = 1020) 0.04 K/UL ABS NUCLEATED RBCS (test cod e = 12873) 0.00 K/UL Teodoro CantuCOMPREHENSIVE METABOLIC PANEL [ADDED]2022-06-27 00:00:00* Test Item Value Reference Range Interpretation Comme nts GLUCOSE (test code = 2217) 140 MG/DL BUN (test code = 2208) 9 MG/DL CREATININE (test code = 2214) 0.67 MG/DL eGFR (2020 CKD-EPI) (test code = 01819) 113 ML/MIN/1.73 CALC BUN/CREAT (test code = 2235) 13 RATIO SODIUM (test code = 2231) 140 MEQ/L POTASSIUM (test code = 2228) 4.1 MEQ/L CHLORIDE (test code = 2215) 99 MEQ/L CARBON DIOXIDE (test code = 2206) 27 MEQ/L CALCIUM (test code = 2209) 9.7 MG/DL PROTEIN, TOTAL (test code = 2229) 6.8 G/DL ALBUMIN (test code = 2201) 4.5 G/DL CALC GLOBULIN (test code = 2240) 2.3 G/DL CALC A/G RATIO (test code = 2234) 2.0 RATIO BILIRUBIN, TOTAL (test code = 2207) 0.7 MG/DL ALKALINE PHOSPHATASE (test code = 2204) 85 U/L AST (test code = 2218) 14 U/L ALT (test code = 2219) 18 U/L Teodoro CantuLIPID PANEL [ADDED]2022-06-27 00:00:00* Test Item Value Reference Range Interpretation Comme nts CHOLESTEROL (test code = 2210) 110 MG/DL TRIGLYCERIDES (test code = 2232) 130 MG/DL HDL CHOLESTEROL (test code = 2220) 31 MG/DL CALC LDL CHOL (test code = 2237) 58 MG/DL RISK RATIO LDL/HDL (test cod e = 2238) 1.87 RATIO Teodoro CantuTSH, THIRD GENERATION [ADDED]2022-06-27 00:00:00* Test Item Value Reference Range Interpretation Comme nts TSH, THIRD GENERATION (test code = 2821) 0.903 UIU/ML Teodoro CantuPSA, TOTAL [ADDED]2022-06-27 00:00:00* Test Item Value Reference Range Interpretation Comme nts PSA, TOTAL (test code = 2606) 0.27 NG/ML Teodoro CantuTESTOSTERONE [ADDED]2022-06-27 00:00:00* Test Item Value Reference Range Interpretation Comme nts TESTOSTERONE (test code = 2830) 829 NG/DL Teodoro CantuCEA [ADDED]2022-06-27 00:00:00* Test Item Value Reference Range Interpretation Comme nts CEA (test code = 2645) <1.8 NG/ML Teodoro CantuNT-proBNP [ADDED]2022-06-27 00:00:00* Test Item Value Reference Range Interpretation Comme nts NT-proBNP (test code = 52769) <50 PG/ML Teodoro CantuCBC W/AUTO DIFF WITH PLATELETS [ADDED]2022-06-27 00:00:00* Test Item Value Reference Range Interpretation Comme nts WBC (test code = 1001) 7.3 K/UL [...] = 1013) 0.6 % IMMATURE GRANULOCYTES (test code = 1036) 0.6 % NUCLEATED RBCS (test code = 1065) 0.0 /100WBC'S PLATELET COUNT (test code = 1015) 192 K/UL ABSOLUTE NEUTROPHILS (test c ode = 1066) 4.70 K/UL ABSOLUTE LYMPHOCYTES (test c ode = 1067) 1.77 K/UL ABSOLUTE MONOCYTES (test cod e = 1068) 0.59 K/UL ABSOLUTE EOSINOPHILS (test c ode = 1040) 0.13 K/UL ABSOLUTE BASOPHILS (test cod e = 1069) 0.04 K/UL ABS IMMATURE GRANULOCYTES (t est code = 1020) 0.04 K/UL ABS NUCLEATED RBCS (test cod e = 31128) 0.00 K/UL Teodoro CantuCOMPREHENSIVE METABOLIC PANEL [ADDED]2022-06-27 00:00:00* Test Item Value Reference Range Interpretation Comme nts GLUCOSE (test code = 2217) 140 MG/DL BUN (test code = 2208) 9 MG/DL CREATININE (test code = 2214) 0.67 MG/DL eGFR (2020 CKD-EPI) (test code = 99848) 113 ML/MIN/1.73 CALC BUN/CREAT (test code = 2235) 13 RATIO SODIUM (test code = 2231) 140 MEQ/L POTASSIUM (test code = 2228) 4.1 MEQ/L CHLORIDE (test code = 2215) 99 MEQ/L CARBON DIOXIDE (test code = 2206) 27 MEQ/L CALCIUM (test code = 2209) 9.7 MG/DL PROTEIN, TOTAL (test code = 2229) 6.8 G/DL ALBUMIN (test code = 2201) 4.5 G/DL CALC GLOBULIN (test code = 2240) 2.3 G/DL CALC A/G RATIO (test code = 2234) 2.0 RATIO BILIRUBIN, TOTAL (test code = 2207) 0.7 MG/DL ALKALINE PHOSPHATASE (test code = 2204) 85 U/L AST (test code = 2218) 14 U/L ALT (test code = 2219) 18 U/L Teodoro CantuLIPID PANEL [ADDED]2022-06-27 00:00:00* Test Item Value Reference Range Interpretation Comme nts CHOLESTEROL (test code = 2210) 110 MG/DL TRIGLYCERIDES (test code = 2232) 130 MG/DL HDL CHOLESTEROL (test code = 2220) 31 MG/DL CALC LDL CHOL (test code = 2237) 58 MG/DL RISK RATIO LDL/HDL (test cod e = 2238) 1.87 RATIO Teodoro CantuTSH, THIRD GENERATION [ADDED]2022-06-27 00:00:00* Test Item Value Reference Range Interpretation Comme nts TSH, THIRD GENERATION (test code = 2821) 0.903 UIU/ML Teodoro CantuPSA, TOTAL [ADDED]2022-06-27 00:00:00* Test Item Value Reference Range Interpretation Comme nts PSA, TOTAL (test code = 2606) 0.27 NG/ML Teodoro CantuTESTOSTERONE [ADDED]2022-06-27 00:00:00* Test Item Value Reference Range Interpretation Comme nts TESTOSTERONE (test code = 2830) 829 NG/DL Teodoro CantuCEA [ADDED]2022-06-27 00:00:00* Test Item Value Reference Range Interpretation Comme nts CEA (test code = 2645) <1.8 NG/ML Teodoro CantuNT-proBNP [ADDED]2022-06-27 00:00:00* Test Item Value Reference Range Interpretation Comme nts NT-proBNP (test code = 23932) <50 PG/ML Teodoro CantuCBC W/AUTO DIFF WITH PLATELETS [ADDED]2022-06-27 00:00:00* Test Item Value Reference Range Interpretation Comme nts WBC (test code = 1001) 7.3 K/UL [...] = 1013) 0.6 % IMMATURE GRANULOCYTES (test code = 1036) 0.6 % NUCLEATED RBCS (test code = 1065) 0.0 /100WBC'S PLATELET COUNT (test code = 1015) 192 K/UL ABSOLUTE NEUTROPHILS (test c ode = 1066) 4.70 K/UL ABSOLUTE LYMPHOCYTES (test c ode = 1067) 1.77 K/UL ABSOLUTE MONOCYTES (test cod e = 1068) 0.59 K/UL ABSOLUTE EOSINOPHILS (test c ode = 1040) 0.13 K/UL ABSOLUTE BASOPHILS (test cod e = 1069) 0.04 K/UL ABS IMMATURE GRANULOCYTES (t est code = 1020) 0.04 K/UL ABS NUCLEATED RBCS (test cod e = 42149) 0.00 K/UL Teodoro CantuCOMPREHENSIVE METABOLIC PANEL [ADDED]2022-06-27 00:00:00* Test Item Value Reference Range Interpretation Comme nts GLUCOSE (test code = 2217) 140 MG/DL BUN (test code = 2208) 9 MG/DL CREATININE (test code = 2214) 0.67 MG/DL eGFR (2020 CKD-EPI) (test code = 74930) 113 ML/MIN/1.73 CALC BUN/CREAT (test code = 2235) 13 RATIO SODIUM (test code = 2231) 140 MEQ/L POTASSIUM (test code = 2228) 4.1 MEQ/L CHLORIDE (test code = 2215) 99 MEQ/L CARBON DIOXIDE (test code = 2206) 27 MEQ/L CALCIUM (test code = 2209) 9.7 MG/DL PROTEIN, TOTAL (test code = 2229) 6.8 G/DL ALBUMIN (test code = 2201) 4.5 G/DL CALC GLOBULIN (test code = 2240) 2.3 G/DL CALC A/G RATIO (test code = 2234) 2.0 RATIO BILIRUBIN, TOTAL (test code = 2207) 0.7 MG/DL ALKALINE PHOSPHATASE (test code = 2204) 85 U/L AST (test code = 2218) 14 U/L ALT (test code = 2219) 18 U/L Teodoro CantuLIPID PANEL [ADDED]2022-06-27 00:00:00* Test Item Value Reference Range Interpretation Comme nts CHOLESTEROL (test code = 2210) 110 MG/DL TRIGLYCERIDES (test code = 2232) 130 MG/DL HDL CHOLESTEROL (test code = 2220) 31 MG/DL CALC LDL CHOL (test code = 2237) 58 MG/DL RISK RATIO LDL/HDL (test cod e = 2238) 1.87 RATIO Teodoro CantuTSH, THIRD GENERATION [ADDED]2022-06-27 00:00:00* Test Item Value Reference Range Interpretation Comme nts TSH, THIRD GENERATION (test code = 2821) 0.903 UIU/ML Toedoro CantuPSA, TOTAL [ADDED]2022-06-27 00:00:00* Test Item Value Reference Range Interpretation Comme nts PSA, TOTAL (test code = 2606) 0.27 NG/ML Teodoro CantuTESTOSTERONE [ADDED]2022-06-27 00:00:00* Test Item Value Reference Range Interpretation Comme nts TESTOSTERONE (test code = 2830) 829 NG/DL Teodoro CantuCEA [ADDED]2022-06-27 00:00:00* Test Item Value Reference Range Interpretation Comme nts CEA (test code = 2645) <1.8 NG/ML Teodoro CantuNT-proBNP [ADDED]2022-06-27 00:00:00* Test Item Value Reference Range Interpretation Comme nts NT-proBNP (test code = 09324) <50 PG/ML Teodoro CantuCBC W/AUTO DIFF WITH PLATELETS [ADDED]2022-06-27 00:00:00* Test Item Value Reference Range Interpretation Comme nts WBC (test code = 1001) 7.3 K/UL [...] = 1013) 0.6 % IMMATURE GRANULOCYTES (test code = 1036) 0.6 % NUCLEATED RBCS (test code = 1065) 0.0 /100WBC'S PLATELET COUNT (test code = 1015) 192 K/UL ABSOLUTE NEUTROPHILS (test c ode = 1066) 4.70 K/UL ABSOLUTE LYMPHOCYTES (test c ode = 1067) 1.77 K/UL ABSOLUTE MONOCYTES (test cod e = 1068) 0.59 K/UL ABSOLUTE EOSINOPHILS (test c ode = 1040) 0.13 K/UL ABSOLUTE BASOPHILS (test cod e = 1069) 0.04 K/UL ABS IMMATURE GRANULOCYTES (t est code = 1020) 0.04 K/UL ABS NUCLEATED RBCS (test cod e = 36073) 0.00 K/UL Teodoro CantuCOMPREHENSIVE METABOLIC PANEL [ADDED]2022-06-27 00:00:00* Test Item Value Reference Range Interpretation Comme nts GLUCOSE (test code = 2217) 140 MG/DL BUN (test code = 2208) 9 MG/DL CREATININE (test code = 2214) 0.67 MG/DL eGFR (2020 CKD-EPI) (test code = 20802) 113 ML/MIN/1.73 CALC BUN/CREAT (test code = 2235) 13 RATIO SODIUM (test code = 2231) 140 MEQ/L POTASSIUM (test code = 2228) 4.1 MEQ/L CHLORIDE (test code = 2215) 99 MEQ/L CARBON DIOXIDE (test code = 2206) 27 MEQ/L CALCIUM (test code = 2209) 9.7 MG/DL PROTEIN, TOTAL (test code = 2229) 6.8 G/DL ALBUMIN (test code = 2201) 4.5 G/DL CALC GLOBULIN (test code = 2240) 2.3 G/DL CALC A/G RATIO (test code = 2234) 2.0 RATIO BILIRUBIN, TOTAL (test code = 2207) 0.7 MG/DL ALKALINE PHOSPHATASE (test code = 2204) 85 U/L AST (test code = 2218) 14 U/L ALT (test code = 2219) 18 U/L Teodoro CantuLIPID PANEL [ADDED]2022-06-27 00:00:00* Test Item Value Reference Range Interpretation Comme nts CHOLESTEROL (test code = 2210) 110 MG/DL TRIGLYCERIDES (test code = 2232) 130 MG/DL HDL CHOLESTEROL (test code = 2220) 31 MG/DL CALC LDL CHOL (test code = 2237) 58 MG/DL RISK RATIO LDL/HDL (test cod e = 2238) 1.87 RATIO Teodoro CanutTSH, THIRD GENERATION [ADDED]2022-06-27 00:00:00* Test Item Value Reference Range Interpretation Comme nts TSH, THIRD GENERATION (test code = 2821) 0.903 UIU/ML Teodroo CantuPSA, TOTAL [ADDED]2022-06-27 00:00:00* Test Item Value Reference Range Interpretation Comme nts PSA, TOTAL (test code = 2606) 0.27 NG/ML Teodoro CantuCBC W/AUTO DIFF WITH [id number] 04:00:05* Test Item Value Reference Range Interpretation Comme nts WBC (test code = 1001) 6.9 K/UL 3.5-11.0 RBC (test code = 1002) 5.27 M/UL 4.50-6.10 HEMOGLOBIN (test code = 1003) 14.1 G/DL 13.5-17.0 HEMATOCRIT (test code = 1004) 40.3 % 40.0-51.0 MCV (test code = 1005) 76.5 fL 80.0-99.0 L MCH (test code = 1006) 26.8 PG 25.0-33.0 MCHC (test code = 1007) 35.0 G/DL 31.0-36.0 RDW (test code = 1038) 16.3 % 11.5-15.0 H NEUTROPHILS (test code = 1008) 64.8 % LYMPHOCYTES (test code = 1010) 25.4 % MONOCYTES (test code = 1011) 7.2 % EOSINOPHILS (test code = 1012) 1.9 % BASOPHILS (test code = 1013) 0.4 % IMMATURE GRANULOCYTES (test code = 1036) 0.3 % NUCLEATED RBCS (test code = 1065) 0.0 /100 WBC'S See_Comment [Automated messa ge] The system which generated this result transmitted reference range: 0.0. The reference range was not used to interpret this result as normal/abnormal. PLATELET COUNT (test code = 1015) 172 K/UL 130-400 ABSOLUTE NEUTROPHILS (test code = 1066) 4.48 K/UL 1.50-7.50 ABSOLUTE LYMPHOCYTES (test code = 1067) 1.76 K/UL 1.00-4.00 ABSOLUTE MONOCYTES (test code = 1068) 0.50 K/UL 0.20-1.00 ABSOLUTE EOSINOPHILS (test code = 1040) 0.13 K/UL 0.00-0.50 ABSOLUTE BASOPHILS (test code = 1069) 0.03 K/UL 0.00-0.20 ABS IMMATURE GRANULOCYTES (test code = 1020) 0.02 K/UL 0.00-0.10 ABS NUCLEATED RBCS (test code = 91912) 0.00 K/UL 0.00-0.11 TESTOSTERONE, FREE/TOTAL WITH [id number] 03:41:48* Test Item Value Reference Range Interpretation Comme nts TESTOSTERONE (test code = 2830) 187 NG/DL 300-890 L SEX HORM BIND GLOBULIN (test code = 4933) 18.0 NMOL/L 19.3-76.4 L CALC FREE TESTOSTERONE (test code = 33560) 48.1 PG/ML 47.0-244.0 PSA, [id number] 03:41:34* Test Item Value Reference Range Interpretation Comme nts PSA, TOTAL (test code = 2606) 0.15 NG/ML See_Comment NOTE: Methodolog y is [employer] Electrochemiluminescence Immunoassay traceable to WHO reference standard 96/760. [Automated message] The system which generated this result transmitted reference range: <=4.00. The reference range was not used to interpret this result as normal/abnormal. [id number] 03:41:34* Test Item Value Reference Range Interpretation Comme nts ESTRADIOL (test code = 2505) 23.7 PG/ML See_Comment Note: Values in the range of 17-25 PG/ML may demonstrate increased imprecision. Clinical correlation is recommended. [Automated message] The system which generated this result transmitted reference range: <=60.7. The reference range was not used to interpret this result as normal/abnormal. COMPREHENSIVE METABOLIC [id number] 02:17:57* Test Item Value Reference Range Interpretation Comme nts GLUCOSE (test code = 7) 146 MG/DL 70-99 H BUN (test code = 2207) 18 MG/DL 6-20 CREATININE (test code = 221) 0.75 MG/DL 0.80-1.40 L eGFR (2020 CKD-EPI) (test code = 25278) 110 ML/MIN/1.73 >60 CALC BUN/CREAT (test code = 2235) 24 RATIO 6-28 SODIUM (test code = 223) 141 MEQ/L 133-146 POTASSIUM (test code = 2228) 4.3 MEQ/L 3.5-5.4 CHLORIDE (test code = 2214) 104 MEQ/L 95-107 CARBON DIOXIDE (test code = 2206) 24 MEQ/L 19-31 CALCIUM (test code = 2209) 9.3 MG/DL 8.5-10.5 PROTEIN, TOTAL (test code = 222) 6.7 G/DL 6.1-8.3 ALBUMIN (test code = 2201) 4.4 G/DL 3.5-5.2 CALC GLOBULIN (test code = 2240) 2.3 G/DL 1.9-3.7 CALC A/G RATIO (test code = 223) 1.9 RATIO 1.0-2.6 BILIRUBIN, TOTAL (test code = 2206) 0.6 MG/DL See_Comment [Automated me ssage] The system which generated this result transmitted reference range: <=1.2. The reference range was not used to interpret this result as normal/abnormal. ALKALINE PHOSPHATASE (test code = 2204) 87 U/L 40-118 AST (test code = 2218) 12 U/L 9-50 ALT (test code = 2219) 21 U/L 5-50 UNLESS OTHERWISE INDICATED, ALL TESTING PERFORMED [facility] [address] [place] [id number] DOPE WORKER: YESSI SHETH M.D. CLIA NUMBER [id number] [facility] [place]. [id number] COMPREHENSIVE METABOLIC [id number] 00:00:00* Test Item Value Reference Range Interpretation Comme nts GLUCOSE (test code = 2217) 146 MG/DL BUN (test code = 2208) 18 MG/DL CREATININE (test code = 2214) 0.75 MG/DL eGFR (2020 CKD-EPI) (test code = 13541) 110 ML/MIN/1.73 CALC BUN/CREAT (test code = 2235) 24 RATIO SODIUM (test code = 2231) 141 MEQ/L POTASSIUM (test code = 2228) 4.3 MEQ/L CHLORIDE (test code = 2215) 104 MEQ/L CARBON DIOXIDE (test code = 2206) 24 MEQ/L CALCIUM (test code = 2209) 9.3 MG/DL PROTEIN, TOTAL (test code = 2229) 6.7 G/DL ALBUMIN (test code = 2201) 4.4 G/DL CALC GLOBULIN (test code = 2240) 2.3 G/DL CALC A/G RATIO (test code = 2234) 1.9 RATIO BILIRUBIN, TOTAL (test code = 2207) 0.6 MG/DL ALKALINE PHOSPHATASE (test code = 2204) 87 U/L AST (test code = 2218) 12 U/L ALT (test code = 2219) 21 U/L [facility]/AUTO [id number] 00:00:00* Test Item Value Reference Range Interpretation Comme nts WBC (test code = 1001) 6.9 K/UL [...] = 1013) 0.4 % IMMATURE GRANULOCYTES (test code = 1036) 0.3 % NUCLEATED RBCS (test code = 1065) 0.0 /100WBC'S PLATELET COUNT (test code = 1015) 172 K/UL ABSOLUTE NEUTROPHILS (test c ode = 1066) 4.48 K/UL ABSOLUTE LYMPHOCYTES (test c ode = 1067) 1.76 K/UL ABSOLUTE MONOCYTES (test cod e = 1068) 0.50 K/UL ABSOLUTE EOSINOPHILS (test c ode = 1040) 0.13 K/UL ABSOLUTE BASOPHILS (test cod e = 1069) 0.03 K/UL ABS IMMATURE GRANULOCYTES (t est code = 1020) 0.02 K/UL ABS NUCLEATED RBCS (test cod e = 46983) 0.00 K/UL Teodoro CantuPSA, [id number] 00:00:00* Test Item Value Reference Range Interpretation Comme nts PSA, TOTAL (test code = 2606) 0.15 NG/ML Teodoro CantuTESTOSTERONE, FREE/TOTAL WITH [id number] 00:00:00* Test Item Value Reference Range Interpretation Comme nts TESTOSTERONE (test code = 2830) 187 NG/DL SEX HORM BIND GLOBULIN (test code = 4933) 18.0 NMOL/L CALC FREE TESTOSTERONE (test code = 71872) 48.1 PG/ML Teodoro [id number] 00:00:00* Test Item Value Reference Range Interpretation Comme nts ESTRADIOL (test code = 2505) 23.7 PG/ML Teodoro CantuCOMPREHENSIVE METABOLIC [id number] 00:00:00* Test Item Value Reference Range Interpretation Comme nts GLUCOSE (test code = 2217) 146 MG/DL BUN (test code = 2208) 18 MG/DL CREATININE (test code = 2214) 0.75 MG/DL eGFR (2020 CKD-EPI) (test code = 20952) 110 ML/MIN/1.73 CALC BUN/CREAT (test code = 2235) 24 RATIO SODIUM (test code = 2231) 141 MEQ/L POTASSIUM (test code = 2228) 4.3 MEQ/L CHLORIDE (test code = 2215) 104 MEQ/L CARBON DIOXIDE (test code = 2206) 24 MEQ/L CALCIUM (test code = 2209) 9.3 MG/DL PROTEIN, TOTAL (test code = 2229) 6.7 G/DL ALBUMIN (test code = 2201) 4.4 G/DL CALC GLOBULIN (test code = 2240) 2.3 G/DL CALC A/G RATIO (test code = 2234) 1.9 RATIO BILIRUBIN, TOTAL (test code = 2207) 0.6 MG/DL ALKALINE PHOSPHATASE (test code = 2204) 87 U/L AST (test code = 2218) 12 U/L ALT (test code = 2219) 21 U/L [facility] W/AUTO [id number] 00:00:00* Test Item Value Reference Range Interpretation Comme nts WBC (test code = 1001) 6.9 K/UL [...] = 1013) 0.4 % IMMATURE GRANULOCYTES (test code = 1036) 0.3 % NUCLEATED RBCS (test code = 1065) 0.0 /100WBC'S PLATELET COUNT (test code = 1015) 172 K/UL ABSOLUTE NEUTROPHILS (test c ode = 1066) 4.48 K/UL ABSOLUTE LYMPHOCYTES (test c ode = 1067) 1.76 K/UL ABSOLUTE MONOCYTES (test cod e = 1068) 0.50 K/UL ABSOLUTE EOSINOPHILS (test c ode = 1040) 0.13 K/UL ABSOLUTE BASOPHILS (test cod e = 1069) 0.03 K/UL ABS IMMATURE GRANULOCYTES (t est code = 1020) 0.02 K/UL ABS NUCLEATED RBCS (test cod e = 16744) 0.00 K/UL PSA, [id number] 00:00:00* Test Item Value Reference Range Interpretation Comme nts PSA, TOTAL (test code = 2606) 0.15 NG/ML TESTOSTERONE, FREE/TOTAL WITH [id number] 00:00:00* Test Item Value Reference Range Interpretation Comme nts TESTOSTERONE (test code = 2830) 187 NG/DL SEX HORM BIND GLOBULIN (test code = 4933) 18.0 NMOL/L CALC FREE TESTOSTERONE (test code = 62495) 48.1 PG/ML [id number] 00:00:00* Test Item Value Reference Range Interpretation Comme nts ESTRADIOL (test code = 2505) 23.7 PG/ML COMPREHENSIVE METABOLIC [id number] 00:00:00* Test Item Value Reference Range Interpretation Comme nts GLUCOSE (test code = 2217) 146 MG/DL BUN (test code = 2208) 18 MG/DL CREATININE (test code = 2214) 0.75 MG/DL eGFR (2020 CKD-EPI) (test code = 74279) 110 ML/MIN/1.73 CALC BUN/CREAT (test code = 2235) 24 RATIO SODIUM (test code = 2231) 141 MEQ/L POTASSIUM (test code = 2228) 4.3 MEQ/L CHLORIDE (test code = 2215) 104 MEQ/L CARBON DIOXIDE (test code = 2206) 24 MEQ/L CALCIUM (test code = 2209) 9.3 MG/DL PROTEIN, TOTAL (test code = 2229) 6.7 G/DL ALBUMIN (test code = 2201) 4.4 G/DL CALC GLOBULIN (test code = 2240) 2.3 G/DL CALC A/G RATIO (test code = 2234) 1.9 RATIO BILIRUBIN, TOTAL (test code = 2207) 0.6 MG/DL ALKALINE PHOSPHATASE (test code = 2204) 87 U/L AST (test code = 2218) 12 U/L ALT (test code = 2219) 21 U/L CBC W/AUTO [id number] 00:00:00* Test Item Value Reference Range Interpretation Comme nts WBC (test code = 1001) 6.9 K/UL [...] = 1013) 0.4 % IMMATURE GRANULOCYTES (test code = 1036) 0.3 % NUCLEATED RBCS (test code = 1065) 0.0 /100WBC'S PLATELET COUNT (test code = 1015) 172 K/UL ABSOLUTE NEUTROPHILS (test c ode = 1066) 4.48 K/UL ABSOLUTE LYMPHOCYTES (test c ode = 1067) 1.76 K/UL ABSOLUTE MONOCYTES (test cod e = 1068) 0.50 K/UL ABSOLUTE EOSINOPHILS (test c ode = 1040) 0.13 K/UL ABSOLUTE BASOPHILS (test cod e = 1069) 0.03 K/UL ABS IMMATURE GRANULOCYTES (t est code = 1020) 0.02 K/UL ABS NUCLEATED RBCS (test cod e = 97583) 0.00 K/UL PSA, [id number] 00:00:00* Test Item Value Reference Range Interpretation Comme nts PSA, TOTAL (test code = 2606) 0.15 NG/ML TESTOSTERONE, FREE/TOTAL WITH [id number] 00:00:00* Test Item Value Reference Range Interpretation Comme nts TESTOSTERONE (test code = 2830) 187 NG/DL SEX HORM BIND GLOBULIN (test code = 4933) 18.0 NMOL/L CALC FREE TESTOSTERONE (test code = 39247) 48.1 PG/ML CBC W/AUTO [id number] 00:00:00* Test Item Value Reference Range Interpretation Comme nts WBC (test code = 1001) 6.9 K/UL [...] = 1013) 0.4 % IMMATURE GRANULOCYTES (test code = 1036) 0.3 % NUCLEATED RBCS (test code = 1065) 0.0 /100WBC'S PLATELET COUNT (test code = 1015) 172 K/UL ABSOLUTE NEUTROPHILS (test c ode = 1066) 4.48 K/UL ABSOLUTE LYMPHOCYTES (test c ode = 1067) 1.76 K/UL ABSOLUTE MONOCYTES (test cod e = 1068) 0.50 K/UL ABSOLUTE EOSINOPHILS (test c ode = 1040) 0.13 K/UL ABSOLUTE BASOPHILS (test cod e = 1069) 0.03 K/UL ABS IMMATURE GRANULOCYTES (t est code = 1020) 0.02 K/UL ABS NUCLEATED RBCS (test cod e = 27344) 0.00 K/UL Teodoro [id number] 00:00:00* Test Item Value Reference Range Interpretation Comme nts ESTRADIOL (test code = 2505) 23.7 PG/ML COMPREHENSIVE METABOLIC [id number] 00:00:00* Test Item Value Reference Range Interpretation Comme nts GLUCOSE (test code = 2217) 146 MG/DL BUN (test code = 2208) 18 MG/DL CREATININE (test code = 2214) 0.75 MG/DL eGFR (2020 CKD-EPI) (test code = 23547) 110 ML/MIN/1.73 CALC BUN/CREAT (test code = 2235) 24 RATIO SODIUM (test code = 2231) 141 MEQ/L POTASSIUM (test code = 2228) 4.3 MEQ/L CHLORIDE (test code = 2215) 104 MEQ/L CARBON DIOXIDE (test code = 2206) 24 MEQ/L CALCIUM (test code = 2209) 9.3 MG/DL PROTEIN, TOTAL (test code = 2229) 6.7 G/DL ALBUMIN (test code = 2201) 4.4 G/DL CALC GLOBULIN (test code = 2240) 2.3 G/DL CALC A/G RATIO (test code = 2234) 1.9 RATIO BILIRUBIN, TOTAL (test code = 2207) 0.6 MG/DL ALKALINE PHOSPHATASE (test code = 2204) 87 U/L AST (test code = 2218) 12 U/L ALT (test code = 2219) 21 U/L CBC W/AUTO [id number] 00:00:00* Test Item Value Reference Range Interpretation Comme nts WBC (test code = 1001) 6.9 K/UL [...] = 1013) 0.4 % IMMATURE GRANULOCYTES (test code = 1036) 0.3 % NUCLEATED RBCS (test code = 1065) 0.0 /100WBC'S PLATELET COUNT (test code = 1015) 172 K/UL ABSOLUTE NEUTROPHILS (test c ode = 1066) 4.48 K/UL ABSOLUTE LYMPHOCYTES (test c ode = 1067) 1.76 K/UL ABSOLUTE MONOCYTES (test cod e = 1068) 0.50 K/UL ABSOLUTE EOSINOPHILS (test c ode = 1040) 0.13 K/UL ABSOLUTE BASOPHILS (test cod e = 1069) 0.03 K/UL ABS IMMATURE GRANULOCYTES (t est code = 1020) 0.02 K/UL ABS NUCLEATED RBCS (test cod e = 32661) 0.00 K/UL PSA, [id number] 00:00:00* Test Item Value Reference Range Interpretation Comme nts PSA, TOTAL (test code = 2606) 0.15 NG/ML TESTOSTERONE, FREE/TOTAL WITH [id number] 00:00:00* Test Item Value Reference Range Interpretation Comme nts TESTOSTERONE (test code = 2830) 187 NG/DL SEX HORM BIND GLOBULIN (test code = 4933) 18.0 NMOL/L CALC FREE TESTOSTERONE (test code = 10713) 48.1 PG/ML [id number] 00:00:00* Test Item Value Reference Range Interpretation Comme nts ESTRADIOL (test code = 2505) 23.7 PG/ML COMPREHENSIVE METABOLIC [id number] 00:00:00* Test Item Value Reference Range Interpretation Comme nts GLUCOSE (test code = 2217) 146 MG/DL BUN (test code = 2208) 18 MG/DL CREATININE (test code = 2214) 0.75 MG/DL eGFR (2020 CKD-EPI) (test code = 10180) 110 ML/MIN/1.73 CALC BUN/CREAT (test code = 2235) 24 RATIO SODIUM (test code = 2231) 141 MEQ/L POTASSIUM (test code = 2228) 4.3 MEQ/L CHLORIDE (test code = 2215) 104 MEQ/L CARBON DIOXIDE (test code = 2206) 24 MEQ/L CALCIUM (test code = 2209) 9.3 MG/DL PROTEIN, TOTAL (test code = 2229) 6.7 G/DL ALBUMIN (test code = 2201) 4.4 G/DL CALC GLOBULIN (test code = 2240) 2.3 G/DL CALC A/G RATIO (test code = 2234) 1.9 RATIO BILIRUBIN, TOTAL (test code = 2207) 0.6 MG/DL ALKALINE PHOSPHATASE (test code = 2204) 87 U/L AST (test code = 2218) 12 U/L ALT (test code = 2219) 21 U/L CBC W/AUTO [id number] 00:00:00* Test Item Value Reference Range Interpretation Comme nts WBC (test code = 1001) 6.9 K/UL [...] = 1013) 0.4 % IMMATURE GRANULOCYTES (test code = 1036) 0.3 % NUCLEATED RBCS (test code = 1065) 0.0 /100WBC'S PLATELET COUNT (test code = 1015) 172 K/UL ABSOLUTE NEUTROPHILS (test c ode = 1066) 4.48 K/UL ABSOLUTE LYMPHOCYTES (test c ode = 1067) 1.76 K/UL ABSOLUTE MONOCYTES (test cod e = 1068) 0.50 K/UL ABSOLUTE EOSINOPHILS (test c ode = 1040) 0.13 K/UL ABSOLUTE BASOPHILS (test cod e = 1069) 0.03 K/UL ABS IMMATURE GRANULOCYTES (t est code = 1020) 0.02 K/UL ABS NUCLEATED RBCS (test cod e = 16491) 0.00 K/UL PSA, [id number] 00:00:00* Test Item Value Reference Range Interpretation Comme nts PSA, TOTAL (test code = 2606) 0.15 NG/ML Teodoro CantuPSA, [id number] 00:00:00* Test Item Value Reference Range Interpretation Comme nts PSA, TOTAL (test code = 2606) 0.15 NG/ML TESTOSTERONE, FREE/TOTAL WITH [id number] 00:00:00* Test Item Value Reference Range Interpretation Comme nts TESTOSTERONE (test code = 2830) 187 NG/DL SEX HORM BIND GLOBULIN (test code = 4933) 18.0 NMOL/L CALC FREE TESTOSTERONE (test code = 66174) 48.1 PG/ML [id number] 00:00:00* Test Item Value Reference Range Interpretation Comme nts ESTRADIOL (test code = 2505) 23.7 PG/ML COMPREHENSIVE METABOLIC [id number] 00:00:00* Test Item Value Reference Range Interpretation Comme nts GLUCOSE (test code = 2217) 146 MG/DL BUN (test code = 2208) 18 MG/DL CREATININE (test code = 2214) 0.75 MG/DL eGFR (2020 CKD-EPI) (test code = 65504) 110 ML/MIN/1.73 CALC BUN/CREAT (test code = 2235) 24 RATIO SODIUM (test code = 2231) 141 MEQ/L POTASSIUM (test code = 2228) 4.3 MEQ/L CHLORIDE (test code = 2215) 104 MEQ/L CARBON DIOXIDE (test code = 2206) 24 MEQ/L CALCIUM (test code = 2209) 9.3 MG/DL PROTEIN, TOTAL (test code = 2229) 6.7 G/DL ALBUMIN (test code = 2201) 4.4 G/DL CALC GLOBULIN (test code = 2240) 2.3 G/DL CALC A/G RATIO (test code = 2234) 1.9 RATIO BILIRUBIN, TOTAL (test code = 2207) 0.6 MG/DL ALKALINE PHOSPHATASE (test code = 2204) 87 U/L AST (test code = 2218) 12 U/L ALT (test code = 2219) 21 U/L CBC W/AUTO [id number] 00:00:00* Test Item Value Reference Range Interpretation Comme nts WBC (test code = 1001) 6.9 K/UL [...] = 1013) 0.4 % IMMATURE GRANULOCYTES (test code = 1036) 0.3 % NUCLEATED RBCS (test code = 1065) 0.0 /100WBC'S PLATELET COUNT (test code = 1015) 172 K/UL ABSOLUTE NEUTROPHILS (test c ode = 1066) 4.48 K/UL ABSOLUTE LYMPHOCYTES (test c ode = 1067) 1.76 K/UL ABSOLUTE MONOCYTES (test cod e = 1068) 0.50 K/UL ABSOLUTE EOSINOPHILS (test c ode = 1040) 0.13 K/UL ABSOLUTE BASOPHILS (test cod e = 1069) 0.03 K/UL ABS IMMATURE GRANULOCYTES (t est code = 1020) 0.02 K/UL ABS NUCLEATED RBCS (test cod e = 33475) 0.00 K/UL PSA, [id number] 00:00:00* Test Item Value Reference Range Interpretation Comme nts PSA, TOTAL (test code = 2606) 0.15 NG/ML TESTOSTERONE, FREE/TOTAL WITH [id number] 00:00:00* Test Item Value Reference Range Interpretation Comme nts TESTOSTERONE (test code = 2830) 187 NG/DL SEX HORM BIND GLOBULIN (test code = 4933) 18.0 NMOL/L CALC FREE TESTOSTERONE (test code = 99047) 48.1 PG/ML [id number] 00:00:00* Test Item Value Reference Range Interpretation Comme nts ESTRADIOL (test code = 2505) 23.7 PG/ML COMPREHENSIVE METABOLIC [id number] 00:00:00* Test Item Value Reference Range Interpretation Comme nts GLUCOSE (test code = 2217) 146 MG/DL BUN (test code = 2208) 18 MG/DL CREATININE (test code = 2214) 0.75 MG/DL eGFR (2020 CKD-EPI) (test code = 93062) 110 ML/MIN/1.73 CALC BUN/CREAT (test code = 2235) 24 RATIO SODIUM (test code = 2231) 141 MEQ/L POTASSIUM (test code = 2228) 4.3 MEQ/L CHLORIDE (test code = 2215) 104 MEQ/L CARBON DIOXIDE (test code = 2206) 24 MEQ/L CALCIUM (test code = 2209) 9.3 MG/DL PROTEIN, TOTAL (test code = 2229) 6.7 G/DL ALBUMIN (test code = 2201) 4.4 G/DL CALC GLOBULIN (test code = 2240) 2.3 G/DL CALC A/G RATIO (test code = 2234) 1.9 RATIO BILIRUBIN, TOTAL (test code = 2207) 0.6 MG/DL ALKALINE PHOSPHATASE (test code = 2204) 87 U/L AST (test code = 2218) 12 U/L ALT (test code = 2219) 21 U/L CBC W/AUTO [id number] 00:00:00* Test Item Value Reference Range Interpretation Comme nts WBC (test code = 1001) 6.9 K/UL [...] = 1013) 0.4 % IMMATURE GRANULOCYTES (test code = 1036) 0.3 % NUCLEATED RBCS (test code = 1065) 0.0 /100WBC'S PLATELET COUNT (test code = 1015) 172 K/UL ABSOLUTE NEUTROPHILS (test c ode = 1066) 4.48 K/UL ABSOLUTE LYMPHOCYTES (test c ode = 1067) 1.76 K/UL ABSOLUTE MONOCYTES (test cod e = 1068) 0.50 K/UL ABSOLUTE EOSINOPHILS (test c ode = 1040) 0.13 K/UL ABSOLUTE BASOPHILS (test cod e = 1069) 0.03 K/UL ABS IMMATURE GRANULOCYTES (t est code = 1020) 0.02 K/UL ABS NUCLEATED RBCS (test cod e = 49806) 0.00 K/UL PSA, [id number] 00:00:00* Test Item Value Reference Range Interpretation Comme nts PSA, TOTAL (test code = 2606) 0.15 NG/ML TESTOSTERONE, FREE/TOTAL WITH [id number] 00:00:00* Test Item Value Reference Range Interpretation Comme nts TESTOSTERONE (test code = 2830) 187 NG/DL SEX HORM BIND GLOBULIN (test code = 4933) 18.0 NMOL/L CALC FREE TESTOSTERONE (test code = 95063) 48.1 PG/ML [id number] 00:00:00* Test Item Value Reference Range Interpretation Comme nts ESTRADIOL (test code = 2505) 23.7 PG/ML COMPREHENSIVE METABOLIC [id number] 00:00:00* Test Item Value Reference Range Interpretation Comme nts GLUCOSE (test code = 2217) 146 MG/DL BUN (test code = 2208) 18 MG/DL CREATININE (test code = 2214) 0.75 MG/DL eGFR (2020 CKD-EPI) (test code = 82169) 110 ML/MIN/1.73 CALC BUN/CREAT (test code = 2235) 24 RATIO SODIUM (test code = 2231) 141 MEQ/L POTASSIUM (test code = 2228) 4.3 MEQ/L CHLORIDE (test code = 2215) 104 MEQ/L CARBON DIOXIDE (test code = 2206) 24 MEQ/L CALCIUM (test code = 2209) 9.3 MG/DL PROTEIN, TOTAL (test code = 2229) 6.7 G/DL ALBUMIN (test code = 2201) 4.4 G/DL CALC GLOBULIN (test code = 2240) 2.3 G/DL CALC A/G RATIO (test code = 2234) 1.9 RATIO BILIRUBIN, TOTAL (test code = 2207) 0.6 MG/DL ALKALINE PHOSPHATASE (test code = 2204) 87 U/L AST (test code = 2218) 12 U/L ALT (test code = 2219) 21 U/L TESTOSTERONE, FREE/TOTAL WITH [id number] 00:00:00* Test Item Value Reference Range Interpretation Comme nts TESTOSTERONE (test code = 2830) 187 NG/DL SEX HORM BIND GLOBULIN (test code = 4933) 18.0 NMOL/L CALC FREE TESTOSTERONE (test code = 80218) 48.1 PG/ML [facility] [id number] 00:00:00* Test Item Value Reference Range Interpretation Comme nts WBC (test code = 1001) 6.9 K/UL [...] = 1013) 0.4 % IMMATURE GRANULOCYTES (test code = 1036) 0.3 % NUCLEATED RBCS (test code = 1065) 0.0 /100WBC'S PLATELET COUNT (test code = 1015) 172 K/UL ABSOLUTE NEUTROPHILS (test c ode = 1066) 4.48 K/UL ABSOLUTE LYMPHOCYTES (test c ode = 1067) 1.76 K/UL ABSOLUTE MONOCYTES (test cod e = 1068) 0.50 K/UL ABSOLUTE EOSINOPHILS (test c ode = 1040) 0.13 K/UL ABSOLUTE BASOPHILS (test cod e = 1069) 0.03 K/UL ABS IMMATURE GRANULOCYTES (t est code = 1020) 0.02 K/UL ABS NUCLEATED RBCS (test cod e = 98544) 0.00 K/UL Teodoro [id number] 00:00:00* Test Item Value Reference Range Interpretation Comme nts ESTRADIOL (test code = 2505) 23.7 PG/ML Teodoro CantuCOMPREHENSIVE METABOLIC [id number] 00:00:00* Test Item Value Reference Range Interpretation Comme nts GLUCOSE (test code = 2217) 146 MG/DL BUN (test code = 2208) 18 MG/DL CREATININE (test code = 2214) 0.75 MG/DL eGFR (2020 CKD-EPI) (test code = 53091) 110 ML/MIN/1.73 CALC BUN/CREAT (test code = 2235) 24 RATIO SODIUM (test code = 2231) 141 MEQ/L POTASSIUM (test code = 2228) 4.3 MEQ/L CHLORIDE (test code = 2215) 104 MEQ/L CARBON DIOXIDE (test code = 2206) 24 MEQ/L CALCIUM (test code = 2209) 9.3 MG/DL PROTEIN, TOTAL (test code = 2229) 6.7 G/DL ALBUMIN (test code = 2201) 4.4 G/DL CALC GLOBULIN (test code = 2240) 2.3 G/DL CALC A/G RATIO (test code = 2234) 1.9 RATIO BILIRUBIN, TOTAL (test code = 2207) 0.6 MG/DL ALKALINE PHOSPHATASE (test code = 2204) 87 U/L AST (test code = 2218) 12 U/L ALT (test code = 2219) 21 U/L Teodoro CantuPSA, [id number] 00:00:00* Test Item Value Reference Range Interpretation Comme nts PSA, TOTAL (test code = 2606) 0.15 NG/ML Teodoro CantuCBC W/AUTO [id number] 00:00:00* Test Item Value Reference Range Interpretation Comme nts WBC (test code = 1001) 6.9 K/UL [...] = 1013) 0.4 % IMMATURE GRANULOCYTES (test code = 1036) 0.3 % NUCLEATED RBCS (test code = 1065) 0.0 /100WBC'S PLATELET COUNT (test code = 1015) 172 K/UL ABSOLUTE NEUTROPHILS (test c ode = 1066) 4.48 K/UL ABSOLUTE LYMPHOCYTES (test c ode = 1067) 1.76 K/UL ABSOLUTE MONOCYTES (test cod e = 1068) 0.50 K/UL ABSOLUTE EOSINOPHILS (test c ode = 1040) 0.13 K/UL ABSOLUTE BASOPHILS (test cod e = 1069) 0.03 K/UL ABS IMMATURE GRANULOCYTES (t est code = 1020) 0.02 K/UL ABS NUCLEATED RBCS (test cod e = 34232) 0.00 K/UL Teodoro CantuPSA, [id number] 00:00:00* Test Item Value Reference Range Interpretation Comme nts PSA, TOTAL (test code = 2606) 0.15 NG/ML Teodoro CantuTESTOSTERONE, FREE/TOTAL WITH [id number] 00:00:00* Test Item Value Reference Range Interpretation Comme nts TESTOSTERONE (test code = 2830) 187 NG/DL SEX HORM BIND GLOBULIN (test code = 4933) 18.0 NMOL/L CALC FREE TESTOSTERONE (test code = 86498) 48.1 PG/ML Teodoro [id number] 00:00:00* Test Item Value Reference Range Interpretation Comme nts ESTRADIOL (test code = 2505) 23.7 PG/ML Teodoro CantuCOMPREHENSIVE METABOLIC [id number] 00:00:00* Test Item Value Reference Range Interpretation Comme nts GLUCOSE (test code = 2217) 146 MG/DL BUN (test code = 2208) 18 MG/DL CREATININE (test code = 2214) 0.75 MG/DL eGFR (2020 CKD-EPI) (test code = 82418) 110 ML/MIN/1.73 CALC BUN/CREAT (test code = 2235) 24 RATIO SODIUM (test code = 2231) 141 MEQ/L POTASSIUM (test code = 2228) 4.3 MEQ/L CHLORIDE (test code = 2215) 104 MEQ/L CARBON DIOXIDE (test code = 2206) 24 MEQ/L CALCIUM (test code = 2209) 9.3 MG/DL PROTEIN, TOTAL (test code = 2229) 6.7 G/DL ALBUMIN (test code = 2201) 4.4 G/DL CALC GLOBULIN (test code = 2240) 2.3 G/DL CALC A/G RATIO (test code = 2234) 1.9 RATIO BILIRUBIN, TOTAL (test code = 2207) 0.6 MG/DL ALKALINE PHOSPHATASE (test code = 2204) 87 U/L AST (test code = 2218) 12 U/L ALT (test code = 2219) 21 U/L [facility]/AUT[facility] [id number] 00:00:00* Test Item Value Reference Range Interpretation Comme nts WBC (test code = 1001) 6.9 K/UL [...] = 1013) 0.4 % IMMATURE GRANULOCYTES (test code = 1036) 0.3 % NUCLEATED RBCS (test code = 1065) 0.0 /100WBC'S PLATELET COUNT (test code = 1015) 172 K/UL ABSOLUTE NEUTROPHILS (test c ode = 1066) 4.48 K/UL ABSOLUTE LYMPHOCYTES (test c ode = 1067) 1.76 K/UL ABSOLUTE MONOCYTES (test cod e = 1068) 0.50 K/UL ABSOLUTE EOSINOPHILS (test c ode = 1040) 0.13 K/UL ABSOLUTE BASOPHILS (test cod e = 1069) 0.03 K/UL ABS IMMATURE GRANULOCYTES (t est code = 1020) 0.02 K/UL ABS NUCLEATED RBCS (test cod e = 81775) 0.00 K/UL Teodoro CantuTESTOSTERONE, FREE/TOTAL WITH [id number] 00:00:00* Test Item Value Reference Range Interpretation Comme nts TESTOSTERONE (test code = 2830) 187 NG/DL SEX HORM BIND GLOBULIN (test code = 4933) 18.0 NMOL/L CALC FREE TESTOSTERONE (test code = 99079) 48.1 PG/ML Teodoro CantuPSA, [id number] 00:00:00* Test Item Value Reference Range Interpretation Comme nts PSA, TOTAL (test code = 2606) 0.15 NG/ML Teodoro CantuTESTOSTERONE, FREE/TOTAL WITH [id number] 00:00:00* Test Item Value Reference Range Interpretation Comme nts TESTOSTERONE (test code = 2830) 187 NG/DL SEX HORM BIND GLOBULIN (test code = 4933) 18.0 NMOL/L CALC FREE TESTOSTERONE (test code = 25889) 48.1 PG/ML Teodoro [id number] 00:00:00* Test Item Value Reference Range Interpretation Comme nts ESTRADIOL (test code = 2505) 23.7 PG/ML Teodoro CantuCOMPREHENSIVE METABOLIC [id number] 00:00:00* Test Item Value Reference Range Interpretation Comme nts GLUCOSE (test code = 2217) 146 MG/DL BUN (test code = 2208) 18 MG/DL CREATININE (test code = 2214) 0.75 MG/DL eGFR (2020 CKD-EPI) (test code = 82889) 110 ML/MIN/1.73 CALC BUN/CREAT (test code = 2235) 24 RATIO SODIUM (test code = 2231) 141 MEQ/L POTASSIUM (test code = 2228) 4.3 MEQ/L CHLORIDE (test code = 2215) 104 MEQ/L CARBON DIOXIDE (test code = 2206) 24 MEQ/L CALCIUM (test code = 2209) 9.3 MG/DL PROTEIN, TOTAL (test code = 2229) 6.7 G/DL ALBUMIN (test code = 2201) 4.4 G/DL CALC GLOBULIN (test code = 2240) 2.3 G/DL CALC A/G RATIO (test code = 2234) 1.9 RATIO BILIRUBIN, TOTAL (test code = 2207) 0.6 MG/DL ALKALINE PHOSPHATASE (test code = 2204) 87 U/L AST (test code = 2218) 12 U/L ALT (test code = 2219) 21 U/L Teodoro [id number] 00:00:00* Test Item Value Reference Range Interpretation Comme nts ESTRADIOL (test code = 2505) 23.7 PG/ML Teodoro CantuCOMPREHENSIVE METABOLIC [id number] 00:00:00* Test Item Value Reference Range Interpretation Comme nts GLUCOSE (test code = 2217) 146 MG/DL BUN (test code = 2208) 18 MG/DL CREATININE (test code = 2214) 0.75 MG/DL eGFR (2020 CKD-EPI) (test code = 03569) 110 ML/MIN/1.73 CALC BUN/CREAT (test code = 2235) 24 RATIO SODIUM (test code = 2231) 141 MEQ/L POTASSIUM (test code = 2228) 4.3 MEQ/L CHLORIDE (test code = 2215) 104 MEQ/L CARBON DIOXIDE (test code = 2206) 24 MEQ/L CALCIUM (test code = 2209) 9.3 MG/DL PROTEIN, TOTAL (test code = 2229) 6.7 G/DL ALBUMIN (test code = 2201) 4.4 G/DL CALC GLOBULIN (test code = 2240) 2.3 G/DL CALC A/G RATIO (test code = 2234) 1.9 RATIO BILIRUBIN, TOTAL (test code = 2207) 0.6 MG/DL ALKALINE PHOSPHATASE (test code = 2204) 87 U/L AST (test code = 2218) 12 U/L ALT (test code = 2219) 21 U/L Teodoro Dodge PepeCBC W/AUTO [id number] 00:00:00* Test Item Value Reference Range Interpretation Comme nts WBC (test code = 1001) 6.9 K/UL [...] = 1013) 0.4 % IMMATURE GRANULOCYTES (test code = 1036) 0.3 % NUCLEATED RBCS (test code = 1065) 0.0 /100WBC'S PLATELET COUNT (test code = 1015) 172 K/UL ABSOLUTE NEUTROPHILS (test c ode = 1066) 4.48 K/UL ABSOLUTE LYMPHOCYTES (test c ode = 1067) 1.76 K/UL ABSOLUTE MONOCYTES (test cod e = 1068) 0.50 K/UL ABSOLUTE EOSINOPHILS (test c ode = 1040) 0.13 K/UL ABSOLUTE BASOPHILS (test cod e = 1069) 0.03 K/UL ABS IMMATURE GRANULOCYTES (t est code = 1020) 0.02 K/UL ABS NUCLEATED RBCS (test cod e = 69101) 0.00 K/UL Teodoro CantuPSA, [id number] 00:00:00* Test Item Value Reference Range Interpretation Comme nts PSA, TOTAL (test code = 2606) 0.15 NG/ML Teodoro CantuTESTOSTERONE, FREE/TOTAL WITH [id number] 00:00:00* Test Item Value Reference Range Interpretation Comme nts TESTOSTERONE (test code = 2830) 187 NG/DL SEX HORM BIND GLOBULIN (test code = 4933) 18.0 NMOL/L CALC FREE TESTOSTERONE (test code = 96262) 48.1 PG/ML Teodoro [id number] 00:00:00* Test Item Value Reference Range Interpretation Comme nts ESTRADIOL (test code = 2505) 23.7 PG/ML Teodoro CantuCOMPREHENSIVE METABOLIC [id number] 00:00:00* Test Item Value Reference Range Interpretation Comme nts GLUCOSE (test code = 2217) 146 MG/DL BUN (test code = 2208) 18 MG/DL CREATININE (test code = 2214) 0.75 MG/DL eGFR (2020 CKD-EPI) (test code = 59932) 110 ML/MIN/1.73 CALC BUN/CREAT (test code = 2235) 24 RATIO SODIUM (test code = 2231) 141 MEQ/L POTASSIUM (test code = 2228) 4.3 MEQ/L CHLORIDE (test code = 2215) 104 MEQ/L CARBON DIOXIDE (test code = 2206) 24 MEQ/L CALCIUM (test code = 2209) 9.3 MG/DL PROTEIN, TOTAL (test code = 2229) 6.7 G/DL ALBUMIN (test code = 2201) 4.4 G/DL CALC GLOBULIN (test code = 2240) 2.3 G/DL CALC A/G RATIO (test code = 2234) 1.9 RATIO BILIRUBIN, TOTAL (test code = 2207) 0.6 MG/DL ALKALINE PHOSPHATASE (test code = 2204) 87 U/L AST (test code = 2218) 12 U/L ALT (test code = 2219) 21 U/L Teodoro CantuCBC W/AUTO [id number] 00:00:00* Test Item Value Reference Range Interpretation Comme nts WBC (test code = 1001) 6.9 K/UL [...] = 1013) 0.4 % IMMATURE GRANULOCYTES (test code = 1036) 0.3 % NUCLEATED RBCS (test code = 1065) 0.0 /100WBC'S PLATELET COUNT (test code = 1015) 172 K/UL ABSOLUTE NEUTROPHILS (test c ode = 1066) 4.48 K/UL ABSOLUTE LYMPHOCYTES (test c ode = 1067) 1.76 K/UL ABSOLUTE MONOCYTES (test cod e = 1068) 0.50 K/UL ABSOLUTE EOSINOPHILS (test c ode = 1040) 0.13 K/UL ABSOLUTE BASOPHILS (test cod e = 1069) 0.03 K/UL ABS IMMATURE GRANULOCYTES (t est code = 1020) 0.02 K/UL ABS NUCLEATED RBCS (test cod e = 11039) 0.00 K/UL Teodoro CantuPSA, [id number] 00:00:00* Test Item Value Reference Range Interpretation Comme nts PSA, TOTAL (test code = 2606) 0.15 NG/ML Teodoro CantuTESTOSTERONE, FREE/TOTAL WITH [id number] 00:00:00* Test Item Value Reference Range Interpretation Comme nts TESTOSTERONE (test code = 2830) 187 NG/DL SEX HORM BIND GLOBULIN (test code = 4933) 18.0 NMOL/L CALC FREE TESTOSTERONE (test code = 94433) 48.1 PG/ML Teodoro [id number] 00:00:00* Test Item Value Reference Range Interpretation Comme nts ESTRADIOL (test code = 2505) 23.7 PG/ML Teodoro CantuCOMPREHENSIVE METABOLIC [id number] 00:00:00* Test Item Value Reference Range Interpretation Comme nts GLUCOSE (test code = 2217) 146 MG/DL BUN (test code = 2208) 18 MG/DL CREATININE (test code = 2214) 0.75 MG/DL eGFR (2020 CKD-EPI) (test code = 53609) 110 ML/MIN/1.73 CALC BUN/CREAT (test code = 2235) 24 RATIO SODIUM (test code = 2231) 141 MEQ/L POTASSIUM (test code = 2228) 4.3 MEQ/L CHLORIDE (test code = 2215) 104 MEQ/L CARBON DIOXIDE (test code = 2206) 24 MEQ/L CALCIUM (test code = 2209) 9.3 MG/DL PROTEIN, TOTAL (test code = 2229) 6.7 G/DL ALBUMIN (test code = 2201) 4.4 G/DL CALC GLOBULIN (test code = 2240) 2.3 G/DL CALC A/G RATIO (test code = 2234) 1.9 RATIO BILIRUBIN, TOTAL (test code = 2207) 0.6 MG/DL ALKALINE PHOSPHATASE (test code = 2204) 87 U/L AST (test code = 2218) 12 U/L ALT (test code = 2219) 21 U/L Teodoro CantuCBC W/AUTO [id number] 00:00:00* Test Item Value Reference Range Interpretation Comme nts WBC (test code = 1001) 6.9 K/UL [...] = 1013) 0.4 % IMMATURE GRANULOCYTES (test code = 1036) 0.3 % NUCLEATED RBCS (test code = 1065) 0.0 /100WBC'S PLATELET COUNT (test code = 1015) 172 K/UL ABSOLUTE NEUTROPHILS (test c ode = 1066) 4.48 K/UL ABSOLUTE LYMPHOCYTES (test c ode = 1067) 1.76 K/UL ABSOLUTE MONOCYTES (test cod e = 1068) 0.50 K/UL ABSOLUTE EOSINOPHILS (test c ode = 1040) 0.13 K/UL ABSOLUTE BASOPHILS (test cod e = 1069) 0.03 K/UL ABS IMMATURE GRANULOCYTES (t est code = 1020) 0.02 K/UL ABS NUCLEATED RBCS (test cod e = 71331) 0.00 K/UL Teodoro CantuPSA, [id number] 00:00:00* Test Item Value Reference Range Interpretation Comme nts PSA, TOTAL (test code = 2606) 0.15 NG/ML Teodoro CatnuTESTOSTERONE, FREE/TOTAL WITH [id number] 00:00:00* Test Item Value Reference Range Interpretation Comme nts TESTOSTERONE (test code = 2830) 187 NG/DL SEX HORM BIND GLOBULIN (test code = 4933) 18.0 NMOL/L CALC FREE TESTOSTERONE (test code = 43460) 48.1 PG/ML Teodoro [id number] 00:00:00* Test Item Value Reference Range Interpretation Comme nts ESTRADIOL (test code = 2505) 23.7 PG/ML Teodoro CantuCOMPREHENSIVE METABOLIC [id number] 00:00:00* Test Item Value Reference Range Interpretation Comme nts GLUCOSE (test code = 2217) 146 MG/DL BUN (test code = 2208) 18 MG/DL CREATININE (test code = 2214) 0.75 MG/DL eGFR (2020 CKD-EPI) (test code = 61827) 110 ML/MIN/1.73 CALC BUN/CREAT (test code = 2235) 24 RATIO SODIUM (test code = 2231) 141 MEQ/L POTASSIUM (test code = 2228) 4.3 MEQ/L CHLORIDE (test code = 2215) 104 MEQ/L CARBON DIOXIDE (test code = 2206) 24 MEQ/L CALCIUM (test code = 2209) 9.3 MG/DL PROTEIN, TOTAL (test code = 2229) 6.7 G/DL ALBUMIN (test code = 2201) 4.4 G/DL CALC GLOBULIN (test code = 2240) 2.3 G/DL CALC A/G RATIO (test code = 2234) 1.9 RATIO BILIRUBIN, TOTAL (test code = 2207) 0.6 MG/DL ALKALINE PHOSPHATASE (test code = 2204) 87 U/L AST (test code = 2218) 12 U/L ALT (test code = 2219) 21 U/L Teodoro CantuCBC W/AUTO [id number] 00:00:00* Test Item Value Reference Range Interpretation Comme nts WBC (test code = 1001) 6.9 K/UL [...] = 1013) 0.4 % IMMATURE GRANULOCYTES (test code = 1036) 0.3 % NUCLEATED RBCS (test code = 1065) 0.0 /100WBC'S PLATELET COUNT (test code = 1015) 172 K/UL ABSOLUTE NEUTROPHILS (test c ode = 1066) 4.48 K/UL ABSOLUTE LYMPHOCYTES (test c ode = 1067) 1.76 K/UL ABSOLUTE MONOCYTES (test cod e = 1068) 0.50 K/UL ABSOLUTE EOSINOPHILS (test c ode = 1040) 0.13 K/UL ABSOLUTE BASOPHILS (test cod e = 1069) 0.03 K/UL ABS IMMATURE GRANULOCYTES (t est code = 1020) 0.02 K/UL ABS NUCLEATED RBCS (test cod e = 66704) 0.00 K/UL Teodoro CantuPSA, [id number] 00:00:00* Test Item Value Reference Range Interpretation Comme nts PSA, TOTAL (test code = 2606) 0.15 NG/ML Teodoro CantuTESTOSTERONE, FREE/TOTAL WITH [id number] 00:00:00* Test Item Value Reference Range Interpretation Comme nts TESTOSTERONE (test code = 2830) 187 NG/DL SEX HORM BIND GLOBULIN (test code = 4933) 18.0 NMOL/L CALC FREE TESTOSTERONE (test code = 62133) 48.1 PG/ML Teodoro [id number] 00:00:00* Test Item Value Reference Range Interpretation Comme nts ESTRADIOL (test code = 2505) 23.7 PG/ML Teodoro CantuCOMPREHENSIVE METABOLIC [id number] 00:00:00* Test Item Value Reference Range Interpretation Comme nts GLUCOSE (test code = 2217) 146 MG/DL BUN (test code = 2208) 18 MG/DL CREATININE (test code = 2214) 0.75 MG/DL eGFR (2020 CKD-EPI) (test code = 17800) 110 ML/MIN/1.73 CALC BUN/CREAT (test code = 2235) 24 RATIO SODIUM (test code = 2231) 141 MEQ/L POTASSIUM (test code = 2228) 4.3 MEQ/L CHLORIDE (test code = 2215) 104 MEQ/L CARBON DIOXIDE (test code = 2206) 24 MEQ/L CALCIUM (test code = 2209) 9.3 MG/DL PROTEIN, TOTAL (test code = 2229) 6.7 G/DL ALBUMIN (test code = 2201) 4.4 G/DL CALC GLOBULIN (test code = 2240) 2.3 G/DL CALC A/G RATIO (test code = 2234) 1.9 RATIO BILIRUBIN, TOTAL (test code = 2207) 0.6 MG/DL ALKALINE PHOSPHATASE (test code = 2204) 87 U/L AST (test code = 2218) 12 U/L ALT (test code = 2219) 21 U/L Teodoro Dodge [facility] W/AUTO [id number] 00:00:00* Test Item Value Reference Range Interpretation Comme nts WBC (test code = 1001) 6.9 K/UL [...] = 1013) 0.4 % IMMATURE GRANULOCYTES (test code = 1036) 0.3 % NUCLEATED RBCS (test code = 1065) 0.0 /100WBC'S PLATELET COUNT (test code = 1015) 172 K/UL ABSOLUTE NEUTROPHILS (test c ode = 1066) 4.48 K/UL ABSOLUTE LYMPHOCYTES (test c ode = 1067) 1.76 K/UL ABSOLUTE MONOCYTES (test cod e = 1068) 0.50 K/UL ABSOLUTE EOSINOPHILS (test c ode = 1040) 0.13 K/UL ABSOLUTE BASOPHILS (test cod e = 1069) 0.03 K/UL ABS IMMATURE GRANULOCYTES (t est code = 1020) 0.02 K/UL ABS NUCLEATED RBCS (test cod e = 68310) 0.00 K/UL Teodoro CantuPSA, [id number] 00:00:00* Test Item Value Reference Range Interpretation Comme nts PSA, TOTAL (test code = 2606) 0.15 NG/ML Teodoro CantuTESTOSTERONE, FREE/TOTAL WITH [id number] 00:00:00* Test Item Value Reference Range Interpretation Comme nts TESTOSTERONE (test code = 2830) 187 NG/DL SEX HORM BIND GLOBULIN (test code = 4933) 18.0 NMOL/L CALC FREE TESTOSTERONE (test code = 01338) 48.1 PG/ML Teodoro [id number] 00:00:00* Test Item Value Reference Range Interpretation Comme nts ESTRADIOL (test code = 2505) 23.7 PG/ML Teodoro CantuCOMPREHENSIVE METABOLIC [id number] 00:00:00* Test Item Value Reference Range Interpretation Comme nts GLUCOSE (test code = 2217) 146 MG/DL BUN (test code = 2208) 18 MG/DL CREATININE (test code = 2214) 0.75 MG/DL eGFR (2020 CKD-EPI) (test code = 26886) 110 ML/MIN/1.73 CALC BUN/CREAT (test code = 2235) 24 RATIO SODIUM (test code = 2231) 141 MEQ/L POTASSIUM (test code = 2228) 4.3 MEQ/L CHLORIDE (test code = 2215) 104 MEQ/L CARBON DIOXIDE (test code = 2206) 24 MEQ/L CALCIUM (test code = 2209) 9.3 MG/DL PROTEIN, TOTAL (test code = 2229) 6.7 G/DL ALBUMIN (test code = 2201) 4.4 G/DL CALC GLOBULIN (test code = 2240) 2.3 G/DL CALC A/G RATIO (test code = 2234) 1.9 RATIO BILIRUBIN, TOTAL (test code = 2207) 0.6 MG/DL ALKALINE PHOSPHATASE (test code = 2204) 87 U/L AST (test code = 2218) 12 U/L ALT (test code = 2219) 21 U/L Teodoro CantuCBC W/AUTO [id number] 00:00:00* Test Item Value Reference Range Interpretation Comme nts WBC (test code = 1001) 6.9 K/UL [...] = 1013) 0.4 % IMMATURE GRANULOCYTES (test code = 1036) 0.3 % NUCLEATED RBCS (test code = 1065) 0.0 /100WBC'S PLATELET COUNT (test code = 1015) 172 K/UL ABSOLUTE NEUTROPHILS (test c ode = 1066) 4.48 K/UL ABSOLUTE LYMPHOCYTES (test c ode = 1067) 1.76 K/UL ABSOLUTE MONOCYTES (test cod e = 1068) 0.50 K/UL ABSOLUTE EOSINOPHILS (test c ode = 1040) 0.13 K/UL ABSOLUTE BASOPHILS (test cod e = 1069) 0.03 K/UL ABS IMMATURE GRANULOCYTES (t est code = 1020) 0.02 K/UL ABS NUCLEATED RBCS (test cod e = 31377) 0.00 K/UL Teodoro CantuPSA, [id number] 00:00:00* Test Item Value Reference Range Interpretation Comme nts PSA, TOTAL (test code = 2606) 0.15 NG/ML Teodoro CantuTESTOSTERONE, FREE/TOTAL WITH [id number] 00:00:00* Test Item Value Reference Range Interpretation Comme nts TESTOSTERONE (test code = 2830) 187 NG/DL SEX HORM BIND GLOBULIN (test code = 4933) 18.0 NMOL/L CALC FREE TESTOSTERONE (test code = 35655) 48.1 PG/ML Teodoro [id number] 00:00:00* Test Item Value Reference Range Interpretation Comme nts ESTRADIOL (test code = 2505) 23.7 PG/ML Teodoro CnatuH. PYLORI (BREATH)2022-02-08 13:46:35* Test Item Value Reference Range Interpretation Comme nts H. PYLORI (BREATH) (test code = 69153) NEGATIVE NEGATIVE UNLESS OTHER SOLIS INDICATED, ALL TESTING PERFORMED [facility] [employer] [address] [place] [id number] [employer] WORKER: YESSI SHETH M.D. IA NUMBER [id number] [facility] [place] [id number] HEMOGLOBIN [id number] 05:07:34* Test Item Value Reference Range Interpretation Comme nts HEMOGLOBIN A1c (test code = 15058) 6.4 % 4.2-5.6 H LIPID [id number] 04:00:25* Test Item Value Reference Range Interpretation Comme nts CHOLESTEROL (test code = 2210) 164 MG/DL <200 TRIGLYCERIDES (test code = 2232) 185 MG/DL <150 H HDL CHOLESTEROL (test code = 2220) 32 MG/DL >39 L CALC LDL CHOL (test code = 2237) 101 MG/DL <100 H NOTE: CALCULATED LDL IS BASED ON MIHAI-GONSALVES METHOD WHICHINCLUDES ADJUSTABLE TRIGLYCERIDE:VLDL CHOLESTEROL RATIO.THIS FACTOR VARIES BY MEASURED TRIGLYCERIDE AND NON-HDLCHOLESTEROL CONCENTRATIONS WITH INCREASED CALCULATED LDL SEENIN HIGHER TRIGLYCERIDE OR LOWER NON-HDL SPECIMENS. FOR MOREINFORMATION, SEE CLIENT ANNOUNCEMENT AT [email or web address] RISK RATIO LDL/HDL (test code = 2238) 3.16 RATIO <3.55 LIPID [id number] 00:00:00* Test Item Value Reference Range Interpretation Comme nts CHOLESTEROL (test code = 2210) 164 MG/DL TRIGLYCERIDES (test code = 2232) 185 MG/DL HDL CHOLESTEROL (test code = 2220) 32 MG/DL CALC LDL CHOL (test code = 2237) 101 MG/DL RISK RATIO LDL/HDL (test cod e = 2238) 3.16 RATIO Teodoro CantuHEMOGLOBIN [id number] 00:00:00* Test Item Value Reference Range Interpretation Comme nts HEMOGLOBIN A1c (test code = 58256) 6.4 % Teodoro F AustinH. PYLORI (BREATH)2022-02-08 00:00:00* Test Item Value Reference Range Interpretation Comme nts H. PYLORI (BREATH) (test cod e = 20450) NEGATIVE Teodoro Dodge AustinLIPID [id number] 00:00:00* Test Item Value Reference Range Interpretation Comme nts CHOLESTEROL (test code = 2210) 164 MG/DL TRIGLYCERIDES (test code = 2232) 185 MG/DL HDL CHOLESTEROL (test code = 2220) 32 MG/DL CALC LDL CHOL (test code = 2237) 101 MG/DL RISK RATIO LDL/HDL (test cod e = 2238) 3.16 RATIO HEMOGLOBIN [id number] 00:00:00* Test Item Value Reference Range Interpretation Comme nts HEMOGLOBIN A1c (test code = 30036) 6.4 % H. PYLORI (BREATH)2022-02-08 00:00:00* Test Item Value Reference Range Interpretation Comme nts H. PYLORI (BREATH) (test cod e = 35656) NEGATIVE LIPID [id number] 00:00:00* Test Item Value Reference Range Interpretation Comme nts CHOLESTEROL (test code = 2210) 164 MG/DL TRIGLYCERIDES (test code = 2232) 185 MG/DL HDL CHOLESTEROL (test code = 2220) 32 MG/DL CALC LDL CHOL (test code = 2237) 101 MG/DL RISK RATIO LDL/HDL (test cod e = 2238) 3.16 RATIO HEMOGLOBIN [id number] 00:00:00* Test Item Value Reference Range Interpretation Comme nts HEMOGLOBIN A1c (test code = 43910) 6.4 % H. PYLORI (BREATH)2022-02-08 00:00:00* Test Item Value Reference Range Interpretation Comme nts H. PYLORI (BREATH) (test cod e = 43911) NEGATIVE LIPID [id number] 00:00:00* Test Item Value Reference Range Interpretation Comme nts CHOLESTEROL (test code = 2210) 164 MG/DL TRIGLYCERIDES (test code = 2232) 185 MG/DL HDL CHOLESTEROL (test code = 2220) 32 MG/DL CALC LDL CHOL (test code = 2237) 101 MG/DL RISK RATIO LDL/HDL (test cod e = 2238) 3.16 RATIO LIPID [id number] 00:00:00* Test Item Value Reference Range Interpretation Comme nts CHOLESTEROL (test code = 2210) 164 MG/DL TRIGLYCERIDES (test code = 2232) 185 MG/DL HDL CHOLESTEROL (test code = 2220) 32 MG/DL CALC LDL CHOL (test code = 2237) 101 MG/DL RISK RATIO LDL/HDL (test cod e = 2238) 3.16 RATIO [facility] Dodge AustinHEMOGLOBIN [id number] 00:00:00* Test Item Value Reference Range Interpretation Comme nts HEMOGLOBIN A1c (test code = 44204) 6.4 % H. PYLORI (BREATH)2022-02-08 00:00:00* Test Item Value Reference Range Interpretation Comme nts H. PYLORI (BREATH) (test cod e = 36256) NEGATIVE LIPID [id number] 00:00:00* Test Item Value Reference Range Interpretation Comme nts CHOLESTEROL (test code = 2210) 164 MG/DL TRIGLYCERIDES (test code = 2232) 185 MG/DL HDL CHOLESTEROL (test code = 2220) 32 MG/DL CALC LDL CHOL (test code = 2237) 101 MG/DL RISK RATIO LDL/HDL (test cod e = 2238) 3.16 RATIO HEMOGLOBIN [id number] 00:00:00* Test Item Value Reference Range Interpretation Comme nts HEMOGLOBIN A1c (test code = 94145) 6.4 % H. PYLORI (BREATH)2022-02-08 00:00:00* Test Item Value Reference Range Interpretation Comme nts H. PYLORI (BREATH) (test cod e = 42619) NEGATIVE LIPID [id number] 00:00:00* Test Item Value Reference Range Interpretation Comme nts CHOLESTEROL (test code = 2210) 164 MG/DL TRIGLYCERIDES (test code = 2232) 185 MG/DL HDL CHOLESTEROL (test code = 2220) 32 MG/DL CALC LDL CHOL (test code = 2237) 101 MG/DL RISK RATIO LDL/HDL (test cod e = 2238) 3.16 RATIO HEMOGLOBIN [id number] 00:00:00* Test Item Value Reference Range Interpretation Comme nts HEMOGLOBIN A1c (test code = 77912) 6.4 % H. PYLORI (BREATH)2022-02-08 00:00:00* Test Item Value Reference Range Interpretation Comme nts H. PYLORI (BREATH) (test cod e = 22287) NEGATIVE HEMOGLOBIN [id number] 00:00:00* Test Item Value Reference Range Interpretation Comme nts HEMOGLOBIN A1c (test code = 25824) 6.4 % Teodoro CantuLIPID [id number] 00:00:00* Test Item Value Reference Range Interpretation Comme nts CHOLESTEROL (test code = 2210) 164 MG/DL TRIGLYCERIDES (test code = 2232) 185 MG/DL HDL CHOLESTEROL (test code = 2220) 32 MG/DL CALC LDL CHOL (test code = 2237) 101 MG/DL RISK RATIO LDL/HDL (test cod e = 2238) 3.16 RATIO HEMOGLOBIN [id number] 00:00:00* Test Item Value Reference Range Interpretation Comme nts HEMOGLOBIN A1c (test code = 98649) 6.4 % H. PYLORI (BREATH)2022-02-08 00:00:00* Test Item Value Reference Range Interpretation Comme nts H. PYLORI (BREATH) (test cod e = 86794) NEGATIVE H. PYLORI (BREATH)2022-02-08 00:00:00* Test Item Value Reference Range Interpretation Comme nts H. PYLORI (BREATH) (test cod e = 40538) NEGATIVE Teodoro CantuLIPID [id number] 00:00:00* Test Item Value Reference Range Interpretation Comme nts CHOLESTEROL (test code = 2210) 164 MG/DL TRIGLYCERIDES (test code = 2232) 185 MG/DL HDL CHOLESTEROL (test code = 2220) 32 MG/DL CALC LDL CHOL (test code = 2237) 101 MG/DL RISK RATIO LDL/HDL (test cod e = 2238) 3.16 RATIO [facility] Dodge AustinLIPID [id number] 00:00:00* Test Item Value Reference Range Interpretation Comme nts CHOLESTEROL (test code = 2210) 164 MG/DL TRIGLYCERIDES (test code = 2232) 185 MG/DL HDL CHOLESTEROL (test code = 2220) 32 MG/DL CALC LDL CHOL (test code = 2237) 101 MG/DL RISK RATIO LDL/HDL (test cod e = 2238) 3.16 RATIO [facility] AustinHEMOGLOBIN [id number] 00:00:00* Test Item Value Reference Range Interpretation Comme nts HEMOGLOBIN A1c (test code = 57433) 6.4 % Teodoro Dodge AustinH. PYLORI (BREATH)2022-02-08 00:00:00* Test Item Value Reference Range Interpretation Comme nts H. PYLORI (BREATH) (test cod e = 39754) NEGATIVE [facility] AustinHEMOGLOBIN [id number] 00:00:00* Test Item Value Reference Range Interpretation Comme nts HEMOGLOBIN A1c (test code = 08384) 6.4 % [facility] Dodge AustinLIPID [id number] 00:00:00* Test Item Value Reference Range Interpretation Comme nts CHOLESTEROL (test code = 2210) 164 MG/DL TRIGLYCERIDES (test code = 2232) 185 MG/DL HDL CHOLESTEROL (test code = 2220) 32 MG/DL CALC LDL CHOL (test code = 2237) 101 MG/DL RISK RATIO LDL/HDL (test cod e = 2238) 3.16 RATIO [facility] AustinHEMOGLOBIN [id number] 00:00:00* Test Item Value Reference Range Interpretation Comme nts HEMOGLOBIN A1c (test code = 95888) 6.4 % Teod[facility] Dodge AustinH. PYLORI (BREATH)2022-02-08 00:00:00* Test Item Value Reference Range Interpretation Comme nts H. PYLORI (BREATH) (test cod e = 90335) NEGATIVE Teod[facility] Dodge AustinH. PYLORI (BREATH)2022-02-08 00:00:00* Test Item Value Reference Range Interpretation Comme nts H. PYLORI (BREATH) (test cod e = 46380) NEGATIVE Te[facility] Dodge AustinLIPID [id number] 00:00:00* Test Item Value Reference Range Interpretation Comme nts CHOLESTEROL (test code = 2210) 164 MG/DL TRIGLYCERIDES (test code = 2232) 185 MG/DL HDL CHOLESTEROL (test code = 2220) 32 MG/DL CALC LDL CHOL (test code = 2237) 101 MG/DL RISK RATIO LDL/HDL (test cod e = 2238) 3.16 RATIO [facility] AustinHEMOGLOBIN [id number] 00:00:00* Test Item Value Reference Range Interpretation Comme nts HEMOGLOBIN A1c (test code = 70512) 6.4 % Teodoro Dodge AustinH. PYLORI (BREATH)2022-02-08 00:00:00* Test Item Value Reference Range Interpretation Comme nts H. PYLORI (BREATH) (test cod e = 00606) NEGATIVE Te[facility] Dodge AustinLIPID [id number] 00:00:00* Test Item Value Reference Range Interpretation Comme nts CHOLESTEROL (test code = 2210) 164 MG/DL TRIGLYCERIDES (test code = 2232) 185 MG/DL HDL CHOLESTEROL (test code = 2220) 32 MG/DL CALC LDL CHOL (test code = 2237) 101 MG/DL RISK RATIO LDL/HDL (test cod e = 2238) 3.16 RATIO [facility] AustinHEMOGLOBIN [id number] 00:00:00* Test Item Value Reference Range Interpretation Comme nts HEMOGLOBIN A1c (test code = 53509) 6.4 % Te[facility] Dodge AustinH. PYLORI (BREATH)2022-02-08 00:00:00* Test Item Value Reference Range Interpretation Comme nts H. PYLORI (BREATH) (test cod e = 20682) NEGATIVE [facility] Dodge AustinLIPID [id number] 00:00:00* Test Item Value Reference Range Interpretation Comme nts CHOLESTEROL (test code = 2210) 164 MG/DL TRIGLYCERIDES (test code = 2232) 185 MG/DL HDL CHOLESTEROL (test code = 2220) 32 MG/DL CALC LDL CHOL (test code = 2237) 101 MG/DL RISK RATIO LDL/HDL (test cod e = 2238) 3.16 RATIO [facility] AustinHEMOGLOBIN [id number] 00:00:00* Test Item Value Reference Range Interpretation Comme nts HEMOGLOBIN A1c (test code = 62708) 6.4 % Te[facility] Dodge AustinH. PYLORI (BREATH)2022-02-08 00:00:00* Test Item Value Reference Range Interpretation Comme nts H. PYLORI (BREATH) (test cod e = 69783) NEGATIVE Te[facility] Dodge AustinLIPID [id number] 00:00:00* Test Item Value Reference Range Interpretation Comme nts CHOLESTEROL (test code = 2210) 164 MG/DL TRIGLYCERIDES (test code = 2232) 185 MG/DL HDL CHOLESTEROL (test code = 2220) 32 MG/DL CALC LDL CHOL (test code = 2237) 101 MG/DL RISK RATIO LDL/HDL (test cod e = 2238) 3.16 RATIO [facility] AustinHEMOGLOBIN [id number] 00:00:00* Test Item Value Reference Range Interpretation Comme nts HEMOGLOBIN A1c (test code = 62765) 6.4 % Teod[facility] Dodge AustinH. PYLORI (BREATH)2022-02-08 00:00:00* Test Item Value Reference Range Interpretation Comme nts H. PYLORI (BREATH) (test cod e = 41988) NEGATIVE [facility] Dodge AustinLIPID [id number] 00:00:00* Test Item Value Reference Range Interpretation Comme nts CHOLESTEROL (test code = 2210) 164 MG/DL TRIGLYCERIDES (test code = 2232) 185 MG/DL HDL CHOLESTEROL (test code = 2220) 32 MG/DL CALC LDL CHOL (test code = 2237) 101 MG/DL RISK RATIO LDL/HDL (test cod e = 2238) 3.16 RATIO [facility] [employer] AustinHEMOGLOBIN [id number] 00:00:00* Test Item Value Reference Range Interpretation Comme nts HEMOGLOBIN A1c (test code = 68392) 6.4 % Teod[facility] Dodge AustinH. PYLORI (BREATH)2022-02-08 00:00:00* Test Item Value Reference Range Interpretation Comme nts H. PYLORI (BREATH) (test cod e = 76675) NEGATIVE [facility] Dodge AustinLIPID [id number] 00:00:00* Test Item Value Reference Range Interpretation Comme nts CHOLESTEROL (test code = 2210) 164 MG/DL TRIGLYCERIDES (test code = 2232) 185 MG/DL HDL CHOLESTEROL (test code = 2220) 32 MG/DL CALC LDL CHOL (test code = 2237) 101 MG/DL RISK RATIO LDL/HDL (test cod e = 2238) 3.16 RATIO [facility] AustinHEMOGLOBIN [id number] 00:00:00* Test Item Value Reference Range Interpretation Comme nts HEMOGLOBIN A1c (test code = 69513) 6.4 % Te[facility] Dodge AustinH. PYLORI (BREATH)2022-02-08 00:00:00* Test Item Value Reference Range Interpretation Comme nts H. PYLORI (BREATH) (test cod e = 73560) NEGATIVE [facility] Dodge [id number] 06:01:31* Test Item Value Reference Range Interpretation Comme nts TESTOSTERONE (test code = 2830) 762 NG/DL [id number] UNLESS OTHERWISE INDICATED, ALL TESTING PERFORMED ATCLINICAL PATHOLOGY [employer] [address] [place] [id number] DOPE WORKER: YESSI SHETH M.D. CLIA NUMBER [id number] [place]. [id number] 00:00:00* Test Item Value Reference Range Interpretation Comme nts TESTOSTERONE (test code = 2830) 762 NG/DL [facility] [id number] 00:00:00* Test Item Value Reference Range Interpretation Comme nts TESTOSTERONE (test code = 2830) 762 NG/DL [facility] [id number] 00:00:00* Test Item Value Reference Range Interpretation Comme nts TESTOSTERONE (test code = 2830) 762 NG/DL [id number] 00:00:00* Test Item Value Reference Range Interpretation Comme nts TESTOSTERONE (test code = 2830) 762 NG/DL [id number] 00:00:00* Test Item Value Reference Range Interpretation Comme nts TESTOSTERONE (test code = 2830) 762 NG/DL [id number] 00:00:00* Test Item Value Reference Range Interpretation Comme nts TESTOSTERONE (test code = 2830) 762 NG/DL [facility] [employer] [id number] 00:00:00* Test Item Value Reference Range Interpretation Comme nts TESTOSTERONE (test code = 2830) 762 NG/DL [id number] 00:00:00* Test Item Value Reference Range Interpretation Comme nts TESTOSTERONE (test code = 2830) 762 NG/DL [id number] 00:00:00* Test Item Value Reference Range Interpretation Comme nts TESTOSTERONE (test code = 2830) 762 NG/DL [id number] 00:00:00* Test Item Value Reference Range Interpretation Comme nts TESTOSTERONE (test code = 2830) 762 NG/DL [employer] [employer] [id number] 00:00:00* Test Item Value Reference Range Interpretation Comme nts TESTOSTERONE (test code = 2830) 762 NG/DL [facility] [id number] 00:00:00* Test Item Value Reference Range Interpretation Comme nts TESTOSTERONE (test code = 2830) 762 NG/DL [facility] [employer] [id number] 00:00:00* Test Item Value Reference Range Interpretation Comme nts TESTOSTERONE (test code = 2830) 762 NG/DL [facility] [id number] 00:00:00* Test Item Value Reference Range Interpretation Comme nts TESTOSTERONE (test code = 2830) 762 NG/DL [facility] [employer] [id number] 00:00:00* Test Item Value Reference Range Interpretation Comme nts TESTOSTERONE (test code = 2830) 762 NG/DL [facility] [employer] [id number] 00:00:00* Test Item Value Reference Range Interpretation Comme nts TESTOSTERONE (test code = 2830) 762 NG/DL [facility] [employer] [id number] 00:00:00* Test Item Value Reference Range Interpretation Comme nts TESTOSTERONE (test code = 2830) 762 NG/DL Teodoro CantuCOMPREHENSIVE METABOLIC [id number] 00:00:00* Test Item Value Reference Range Interpretation Comme nts GLUCOSE (test code = 2217) 135 MG/DL BUN (test code = 2208) 9 MG/DL CREATININE (test code = 2214) 0.71 MG/DL eGFR AMER. (test cod e = 96446) 127 ML/MIN/1.73 eGFR NON- AMER. (test code = 96209) 109 ML/MIN/1.73 CALC BUN/CREAT (test code = 2235) 13 RATIO SODIUM (test code = 2231) 139 MEQ/L POTASSIUM (test code = 2228) 4.6 MEQ/L CHLORIDE (test code = 2215) 101 MEQ/L CARBON DIOXIDE (test code = 2206) 23 MEQ/L CALCIUM (test code = 2209) 9.9 MG/DL PROTEIN, TOTAL (test code = 2229) 6.9 G/DL ALBUMIN (test code = 2201) 4.7 G/DL CALC GLOBULIN (test code = 2240) 2.2 G/DL CALC A/G RATIO (test code = 2234) 2.1 RATIO BILIRUBIN, TOTAL (test code = 2207) 0.4 MG/DL ALKALINE PHOSPHATASE (test code = 2204) 100 U/L AST (test code = 2218) 10 U/L ALT (test code = 2219) 13 U/L Teodoro CantuHEMOGLOBIN [id number] 00:00:00* Test Item Value Reference Range Interpretation Comme nts HEMOGLOBIN A1c (test code = 79497) 7.4 % [employer] [id number] 00:00:00* Test Item Value Reference Range Interpretation Comme nts TESTOSTERONE (test code = 2830) 483 NG/DL Teodoro CantuCOMPREHENSIVE METABOLIC [id number] 00:00:00* Test Item Value Reference Range Interpretation Comme nts GLUCOSE (test code = 2217) 135 MG/DL BUN (test code = 2208) 9 MG/DL CREATININE (test code = 2214) 0.71 MG/DL eGFR AMER. (test cod e = 52564) 127 ML/MIN/1.73 eGFR NON- AMER. (test code = 30796) 109 ML/MIN/1.73 CALC BUN/CREAT (test code = 2235) 13 RATIO SODIUM (test code = 2231) 139 MEQ/L POTASSIUM (test code = 2228) 4.6 MEQ/L CHLORIDE (test code = 2215) 101 MEQ/L CARBON DIOXIDE (test code = 2206) 23 MEQ/L CALCIUM (test code = 2209) 9.9 MG/DL PROTEIN, TOTAL (test code = 2229) 6.9 G/DL ALBUMIN (test code = 2201) 4.7 G/DL CALC GLOBULIN (test code = 2240) 2.2 G/DL CALC A/G RATIO (test code = 2234) 2.1 RATIO BILIRUBIN, TOTAL (test code = 2207) 0.4 MG/DL ALKALINE PHOSPHATASE (test code = 2204) 100 U/L AST (test code = 2218) 10 U/L ALT (test code = 2219) 13 U/L HEMOGLOBIN [id number] 00:00:00* Test Item Value Reference Range Interpretation Comme nts HEMOGLOBIN A1c (test code = 03104) 7.4 % [id number] 00:00:00* Test Item Value Reference Range Interpretation Comme nts TESTOSTERONE (test code = 2830) 483 NG/DL COMPREHENSIVE METABOLIC [id number] 00:00:00* Test Item Value Reference Range Interpretation Comme nts GLUCOSE (test code = 2217) 135 MG/DL BUN (test code = 2208) 9 MG/DL CREATININE (test code = 2214) 0.71 MG/DL eGFR AMER. (test cod e = 30154) 127 ML/MIN/1.73 eGFR NON- AMER. (test code = 73914) 109 ML/MIN/1.73 CALC BUN/CREAT (test code = 2235) 13 RATIO SODIUM (test code = 2231) 139 MEQ/L POTASSIUM (test code = 2228) 4.6 MEQ/L CHLORIDE (test code = 2215) 101 MEQ/L CARBON DIOXIDE (test code = 2206) 23 MEQ/L CALCIUM (test code = 2209) 9.9 MG/DL PROTEIN, TOTAL (test code = 2229) 6.9 G/DL ALBUMIN (test code = 2201) 4.7 G/DL CALC GLOBULIN (test code = 2240) 2.2 G/DL CALC A/G RATIO (test code = 2234) 2.1 RATIO BILIRUBIN, TOTAL (test code = 2207) 0.4 MG/DL ALKALINE PHOSPHATASE (test code = 2204) 100 U/L AST (test code = 2218) 10 U/L ALT (test code = 2219) 13 U/L HEMOGLOBIN [id number] 00:00:00* Test Item Value Reference Range Interpretation Comme nts HEMOGLOBIN A1c (test code = 36193) 7.4 % [id number] 00:00:00* Test Item Value Reference Range Interpretation Comme nts TESTOSTERONE (test code = 2830) 483 NG/DL COMPREHENSIVE METABOLIC [id number] 00:00:00* Test Item Value Reference Range Interpretation Comme nts GLUCOSE (test code = 2217) 135 MG/DL BUN (test code = 2208) 9 MG/DL CREATININE (test code = 2214) 0.71 MG/DL eGFR AMER. (test cod e = 71915) 127 ML/MIN/1.73 eGFR NON- AMER. (test code = 28855) 109 ML/MIN/1.73 CALC BUN/CREAT (test code = 2235) 13 RATIO SODIUM (test code = 2231) 139 MEQ/L POTASSIUM (test code = 2228) 4.6 MEQ/L CHLORIDE (test code = 2215) 101 MEQ/L CARBON DIOXIDE (test code = 2206) 23 MEQ/L CALCIUM (test code = 2209) 9.9 MG/DL PROTEIN, TOTAL (test code = 2229) 6.9 G/DL ALBUMIN (test code = 2201) 4.7 G/DL CALC GLOBULIN (test code = 2240) 2.2 G/DL CALC A/G RATIO (test code = 2234) 2.1 RATIO BILIRUBIN, TOTAL (test code = 2207) 0.4 MG/DL ALKALINE PHOSPHATASE (test code = 2204) 100 U/L AST (test code = 2218) 10 U/L ALT (test code = 2219) 13 U/L HEMOGLOBIN [id number] 00:00:00* Test Item Value Reference Range Interpretation Comme nts HEMOGLOBIN A1c (test code = 89658) 7.4 % [id number] 00:00:00* Test Item Value Reference Range Interpretation Comme nts TESTOSTERONE (test code = 2830) 483 NG/DL COMPREHENSIVE METABOLIC [id number] 00:00:00* Test Item Value Reference Range Interpretation Comme nts GLUCOSE (test code = 2217) 135 MG/DL BUN (test code = 2208) 9 MG/DL CREATININE (test code = 2214) 0.71 MG/DL eGFR AMER. (test cod e = 89409) 127 ML/MIN/1.73 eGFR NON- AMER. (test code = 80343) 109 ML/MIN/1.73 CALC BUN/CREAT (test code = 2235) 13 RATIO SODIUM (test code = 2231) 139 MEQ/L POTASSIUM (test code = 2228) 4.6 MEQ/L CHLORIDE (test code = 2215) 101 MEQ/L CARBON DIOXIDE (test code = 2206) 23 MEQ/L CALCIUM (test code = 2209) 9.9 MG/DL PROTEIN, TOTAL (test code = 2229) 6.9 G/DL ALBUMIN (test code = 2201) 4.7 G/DL CALC GLOBULIN (test code = 2240) 2.2 G/DL CALC A/G RATIO (test code = 2234) 2.1 RATIO BILIRUBIN, TOTAL (test code = 2207) 0.4 MG/DL ALKALINE PHOSPHATASE (test code = 2204) 100 U/L AST (test code = 2218) 10 U/L ALT (test code = 2219) 13 U/L Teodoro F AustinCOMPREHENSIVE METABOLIC [id number] 00:00:00* Test Item Value Reference Range Interpretation Comme nts GLUCOSE (test code = 2217) 135 MG/DL BUN (test code = 2208) 9 MG/DL CREATININE (test code = 2214) 0.71 MG/DL eGFR AMER. (test cod e = 62500) 127 ML/MIN/1.73 eGFR NON- AMER. (test code = 73897) 109 ML/MIN/1.73 CALC BUN/CREAT (test code = 2235) 13 RATIO SODIUM (test code = 2231) 139 MEQ/L POTASSIUM (test code = 2228) 4.6 MEQ/L CHLORIDE (test code = 2215) 101 MEQ/L CARBON DIOXIDE (test code = 2206) 23 MEQ/L CALCIUM (test code = 2209) 9.9 MG/DL PROTEIN, TOTAL (test code = 2229) 6.9 G/DL ALBUMIN (test code = 2201) 4.7 G/DL CALC GLOBULIN (test code = 2240) 2.2 G/DL CALC A/G RATIO (test code = 2234) 2.1 RATIO BILIRUBIN, TOTAL (test code = 2207) 0.4 MG/DL ALKALINE PHOSPHATASE (test code = 2204) 100 U/L AST (test code = 2218) 10 U/L ALT (test code = 2219) 13 U/L HEMOGLOBIN [id number] 00:00:00* Test Item Value Reference Range Interpretation Comme nts HEMOGLOBIN A1c (test code = 03652) 7.4 % [id number] 00:00:00* Test Item Value Reference Range Interpretation Comme nts TESTOSTERONE (test code = 2830) 483 NG/DL COMPREHENSIVE METABOLIC [id number] 00:00:00* Test Item Value Reference Range Interpretation Comme nts GLUCOSE (test code = 2217) 135 MG/DL BUN (test code = 2208) 9 MG/DL CREATININE (test code = 2214) 0.71 MG/DL eGFR AMER. (test cod e = 50757) 127 ML/MIN/1.73 eGFR NON- AMER. (test code = 31087) 109 ML/MIN/1.73 CALC BUN/CREAT (test code = 2235) 13 RATIO SODIUM (test code = 2231) 139 MEQ/L POTASSIUM (test code = 2228) 4.6 MEQ/L CHLORIDE (test code = 2215) 101 MEQ/L CARBON DIOXIDE (test code = 2206) 23 MEQ/L CALCIUM (test code = 2209) 9.9 MG/DL PROTEIN, TOTAL (test code = 2229) 6.9 G/DL ALBUMIN (test code = 2201) 4.7 G/DL CALC GLOBULIN (test code = 2240) 2.2 G/DL CALC A/G RATIO (test code = 2234) 2.1 RATIO BILIRUBIN, TOTAL (test code = 2207) 0.4 MG/DL ALKALINE PHOSPHATASE (test code = 2204) 100 U/L AST (test code = 2218) 10 U/L ALT (test code = 2219) 13 U/L HEMOGLOBIN [id number] 00:00:00* Test Item Value Reference Range Interpretation Comme nts HEMOGLOBIN A1c (test code = 45161) 7.4 % [id number] 00:00:00* Test Item Value Reference Range Interpretation Comme nts TESTOSTERONE (test code = 2830) 483 NG/DL COMPREHENSIVE METABOLIC [id number] 00:00:00* Test Item Value Reference Range Interpretation Comme nts GLUCOSE (test code = 2217) 135 MG/DL BUN (test code = 2208) 9 MG/DL CREATININE (test code = 2214) 0.71 MG/DL eGFR AMER. (test cod e = 67601) 127 ML/MIN/1.73 eGFR NON- AMER. (test code = 89301) 109 ML/MIN/1.73 CALC BUN/CREAT (test code = 2235) 13 RATIO SODIUM (test code = 2231) 139 MEQ/L POTASSIUM (test code = 2228) 4.6 MEQ/L CHLORIDE (test code = 2215) 101 MEQ/L CARBON DIOXIDE (test code = 2206) 23 MEQ/L CALCIUM (test code = 2209) 9.9 MG/DL PROTEIN, TOTAL (test code = 2229) 6.9 G/DL ALBUMIN (test code = 2201) 4.7 G/DL CALC GLOBULIN (test code = 2240) 2.2 G/DL CALC A/G RATIO (test code = 2234) 2.1 RATIO BILIRUBIN, TOTAL (test code = 2207) 0.4 MG/DL ALKALINE PHOSPHATASE (test code = 2204) 100 U/L AST (test code = 2218) 10 U/L ALT (test code = 2219) 13 U/L HEMOGLOBIN [id number] 00:00:00* Test Item Value Reference Range Interpretation Comme nts HEMOGLOBIN A1c (test code = 45526) 7.4 % COMPREHENSIVE METABOLIC [id number] 00:00:00* Test Item Value Reference Range Interpretation Comme nts GLUCOSE (test code = 2217) 135 MG/DL BUN (test code = 2208) 9 MG/DL CREATININE (test code = 2214) 0.71 MG/DL eGFR AMER. (test cod e = 03518) 127 ML/MIN/1.73 eGFR NON- AMER. (test code = 04254) 109 ML/MIN/1.73 CALC BUN/CREAT (test code = 2235) 13 RATIO SODIUM (test code = 2231) 139 MEQ/L POTASSIUM (test code = 2228) 4.6 MEQ/L CHLORIDE (test code = 2215) 101 MEQ/L CARBON DIOXIDE (test code = 2206) 23 MEQ/L CALCIUM (test code = 2209) 9.9 MG/DL PROTEIN, TOTAL (test code = 2229) 6.9 G/DL ALBUMIN (test code = 2201) 4.7 G/DL CALC GLOBULIN (test code = 2240) 2.2 G/DL CALC A/G RATIO (test code = 2234) 2.1 RATIO BILIRUBIN, TOTAL (test code = 2207) 0.4 MG/DL ALKALINE PHOSPHATASE (test code = 2204) 100 U/L AST (test code = 2218) 10 U/L ALT (test code = 2219) 13 U/L [employer] [id number] 00:00:00* Test Item Value Reference Range Interpretation Comme nts TESTOSTERONE (test code = 2830) 483 NG/DL HEMOGLOBIN [id number] 00:00:00* Test Item Value Reference Range Interpretation Comme nts HEMOGLOBIN A1c (test code = 45337) 7.4 % [employer] [id number] 00:00:00* Test Item Value Reference Range Interpretation Comme nts TESTOSTERONE (test code = 2830) 483 NG/DL [employer] BartleyCOMPREHENSIVE METABOLIC [id number] 00:00:00* Test Item Value Reference Range Interpretation Comme nts GLUCOSE (test code = 2217) 135 MG/DL BUN (test code = 2208) 9 MG/DL CREATININE (test code = 2214) 0.71 MG/DL eGFR AMER. (test cod e = 34811) 127 ML/MIN/1.73 eGFR NON- AMER. (test code = 56814) 109 ML/MIN/1.73 CALC BUN/CREAT (test code = 2235) 13 RATIO SODIUM (test code = 2231) 139 MEQ/L POTASSIUM (test code = 2228) 4.6 MEQ/L CHLORIDE (test code = 2215) 101 MEQ/L CARBON DIOXIDE (test code = 2206) 23 MEQ/L CALCIUM (test code = 2209) 9.9 MG/DL PROTEIN, TOTAL (test code = 2229) 6.9 G/DL ALBUMIN (test code = 2201) 4.7 G/DL CALC GLOBULIN (test code = 2240) 2.2 G/DL CALC A/G RATIO (test code = 2234) 2.1 RATIO BILIRUBIN, TOTAL (test code = 2207) 0.4 MG/DL ALKALINE PHOSPHATASE (test code = 2204) 100 U/L AST (test code = 2218) 10 U/L ALT (test code = 2219) 13 U/L [employer] AustinHEMOGLOBIN [id number] 00:00:00* Test Item Value Reference Range Interpretation Comme nts HEMOGLOBIN A1c (test code = 10686) 7.4 % [employer] [id number] 00:00:00* Test Item Value Reference Range Interpretation Comme nts TESTOSTERONE (test code = 2830) 483 NG/DL [employer] AustinHEMOGLOBIN [id number] 00:00:00* Test Item Value Reference Range Interpretation Comme nts HEMOGLOBIN A1c (test code = 72224) 7.4 % [employer] BartleyCOMPREHENSIVE METABOLIC [id number] 00:00:00* Test Item Value Reference Range Interpretation Comme nts GLUCOSE (test code = 2217) 135 MG/DL BUN (test code = 2208) 9 MG/DL CREATININE (test code = 2214) 0.71 MG/DL eGFR AMER. (test cod e = 00674) 127 ML/MIN/1.73 eGFR NON- AMER. (test code = 17651) 109 ML/MIN/1.73 CALC BUN/CREAT (test code = 2235) 13 RATIO SODIUM (test code = 2231) 139 MEQ/L POTASSIUM (test code = 2228) 4.6 MEQ/L CHLORIDE (test code = 2215) 101 MEQ/L CARBON DIOXIDE (test code = 2206) 23 MEQ/L CALCIUM (test code = 2209) 9.9 MG/DL PROTEIN, TOTAL (test code = 2229) 6.9 G/DL ALBUMIN (test code = 2201) 4.7 G/DL CALC GLOBULIN (test code = 2240) 2.2 G/DL CALC A/G RATIO (test code = 2234) 2.1 RATIO BILIRUBIN, TOTAL (test code = 2207) 0.4 MG/DL ALKALINE PHOSPHATASE (test code = 2204) 100 U/L AST (test code = 2218) 10 U/L ALT (test code = 2219) 13 U/L Teodoro CantuHEMOGLOBIN [id number] 00:00:00* Test Item Value Reference Range Interpretation Comme nts HEMOGLOBIN A1c (test code = 94779) 7.4 % Teodoro [id number] 00:00:00* Test Item Value Reference Range Interpretation Comme nts TESTOSTERONE (test code = 2830) 483 NG/DL Teodoro C[id number] 00:00:00* Test Item Value Reference Range Interpretation Comme nts TESTOSTERONE (test code = 2830) 483 NG/DL Teodoro CantuCOMPREHENSIVE METABOLIC [id number] 00:00:00* Test Item Value Reference Range Interpretation Comme nts GLUCOSE (test code = 2217) 135 MG/DL BUN (test code = 2208) 9 MG/DL CREATININE (test code = 2214) 0.71 MG/DL eGFR AMER. (test cod e = 92032) 127 ML/MIN/1.73 eGFR NON- AMER. (test code = 27573) 109 ML/MIN/1.73 CALC BUN/CREAT (test code = 2235) 13 RATIO SODIUM (test code = 2231) 139 MEQ/L POTASSIUM (test code = 2228) 4.6 MEQ/L CHLORIDE (test code = 2215) 101 MEQ/L CARBON DIOXIDE (test code = 2206) 23 MEQ/L CALCIUM (test code = 2209) 9.9 MG/DL PROTEIN, TOTAL (test code = 2229) 6.9 G/DL ALBUMIN (test code = 2201) 4.7 G/DL CALC GLOBULIN (test code = 2240) 2.2 G/DL CALC A/G RATIO (test code = 2234) 2.1 RATIO BILIRUBIN, TOTAL (test code = 2207) 0.4 MG/DL ALKALINE PHOSPHATASE (test code = 2204) 100 U/L AST (test code = 2218) 10 U/L ALT (test code = 2219) 13 U/L [employer] Dodge AustinHEMOGLOBIN [id number] 00:00:00* Test Item Value Reference Range Interpretation Comme nts HEMOGLOBIN A1c (test code = 34648) 7.4 % [employer] [id number] 00:00:00* Test Item Value Reference Range Interpretation Comme nts TESTOSTERONE (test code = 2830) 483 NG/DL Teodoro CantuCOMPREHENSIVE METABOLIC [id number] 00:00:00* Test Item Value Reference Range Interpretation Comme nts GLUCOSE (test code = 2217) 135 MG/DL BUN (test code = 2208) 9 MG/DL CREATININE (test code = 2214) 0.71 MG/DL eGFR AMER. (test cod e = 00045) 127 ML/MIN/1.73 eGFR NON- AMER. (test code = 60957) 109 ML/MIN/1.73 CALC BUN/CREAT (test code = 2235) 13 RATIO SODIUM (test code = 2231) 139 MEQ/L POTASSIUM (test code = 2228) 4.6 MEQ/L CHLORIDE (test code = 2215) 101 MEQ/L CARBON DIOXIDE (test code = 2206) 23 MEQ/L CALCIUM (test code = 2209) 9.9 MG/DL PROTEIN, TOTAL (test code = 2229) 6.9 G/DL ALBUMIN (test code = 2201) 4.7 G/DL CALC GLOBULIN (test code = 2240) 2.2 G/DL CALC A/G RATIO (test code = 2234) 2.1 RATIO BILIRUBIN, TOTAL (test code = 2207) 0.4 MG/DL ALKALINE PHOSPHATASE (test code = 2204) 100 U/L AST (test code = 2218) 10 U/L ALT (test code = 2219) 13 U/L [employer] [employer] AustinHEMOGLOBIN [id number] 00:00:00* Test Item Value Reference Range Interpretation Comme nts HEMOGLOBIN A1c (test code = 23301) 7.4 % [employer] [id number] 00:00:00* Test Item Value Reference Range Interpretation Comme nts TESTOSTERONE (test code = 2830) 483 NG/DL Te[facility]oro CantuCOMPREHENSIVE METABOLIC [id number] 00:00:00* Test Item Value Reference Range Interpretation Comme nts GLUCOSE (test code = 2217) 135 MG/DL BUN (test code = 2208) 9 MG/DL CREATININE (test code = 2214) 0.71 MG/DL eGFR AMER. (test cod e = 13498) 127 ML/MIN/1.73 eGFR NON- AMER. (test code = 50200) 109 ML/MIN/1.73 CALC BUN/CREAT (test code = 2235) 13 RATIO SODIUM (test code = 2231) 139 MEQ/L POTASSIUM (test code = 2228) 4.6 MEQ/L CHLORIDE (test code = 2215) 101 MEQ/L CARBON DIOXIDE (test code = 2206) 23 MEQ/L CALCIUM (test code = 2209) 9.9 MG/DL PROTEIN, TOTAL (test code = 2229) 6.9 G/DL ALBUMIN (test code = 2201) 4.7 G/DL CALC GLOBULIN (test code = 2240) 2.2 G/DL CALC A/G RATIO (test code = 2234) 2.1 RATIO BILIRUBIN, TOTAL (test code = 2207) 0.4 MG/DL ALKALINE PHOSPHATASE (test code = 2204) 100 U/L AST (test code = 2218) 10 U/L ALT (test code = 2219) 13 U/L Te[facility] CantuHEMOGLOBIN [id number] 00:00:00* Test Item Value Reference Range Interpretation Comme nts HEMOGLOBIN A1c (test code = 92341) 7.4 % [employer] [id number] 00:00:00* Test Item Value Reference Range Interpretation Comme nts TESTOSTERONE (test code = 2830) 483 NG/DL Teodoro CantuCOMPREHENSIVE METABOLIC [id number] 00:00:00* Test Item Value Reference Range Interpretation Comme nts GLUCOSE (test code = 2217) 135 MG/DL BUN (test code = 2208) 9 MG/DL CREATININE (test code = 2214) 0.71 MG/DL eGFR AMER. (test cod e = 17594) 127 ML/MIN/1.73 eGFR NON- AMER. (test code = 78723) 109 ML/MIN/1.73 CALC BUN/CREAT (test code = 2235) 13 RATIO SODIUM (test code = 2231) 139 MEQ/L POTASSIUM (test code = 2228) 4.6 MEQ/L CHLORIDE (test code = 2215) 101 MEQ/L CARBON DIOXIDE (test code = 2206) 23 MEQ/L CALCIUM (test code = 2209) 9.9 MG/DL PROTEIN, TOTAL (test code = 2229) 6.9 G/DL ALBUMIN (test code = 2201) 4.7 G/DL CALC GLOBULIN (test code = 2240) 2.2 G/DL CALC A/G RATIO (test code = 2234) 2.1 RATIO BILIRUBIN, TOTAL (test code = 2207) 0.4 MG/DL ALKALINE PHOSPHATASE (test code = 2204) 100 U/L AST (test code = 2218) 10 U/L ALT (test code = 2219) 13 U/L Te[facility] CantuHEMOGLOBIN [id number] 00:00:00* Test Item Value Reference Range Interpretation Comme nts HEMOGLOBIN A1c (test code = 26297) 7.4 % Te[facility]oro [id number] 00:00:00* Test Item Value Reference Range Interpretation Comme nts TESTOSTERONE (test code = 2830) 483 NG/DL Teod[facility] CantuCOMPREHENSIVE METABOLIC [id number] 00:00:00* Test Item Value Reference Range Interpretation Comme nts GLUCOSE (test code = 2217) 135 MG/DL BUN (test code = 2208) 9 MG/DL CREATININE (test code = 2214) 0.71 MG/DL eGFR AMER. (test cod e = 60181) 127 ML/MIN/1.73 eGFR NON- AMER. (test code = 43951) 109 ML/MIN/1.73 CALC BUN/CREAT (test code = 2235) 13 RATIO SODIUM (test code = 2231) 139 MEQ/L POTASSIUM (test code = 2228) 4.6 MEQ/L CHLORIDE (test code = 2215) 101 MEQ/L CARBON DIOXIDE (test code = 2206) 23 MEQ/L CALCIUM (test code = 2209) 9.9 MG/DL PROTEIN, TOTAL (test code = 2229) 6.9 G/DL ALBUMIN (test code = 2201) 4.7 G/DL CALC GLOBULIN (test code = 2240) 2.2 G/DL CALC A/G RATIO (test code = 2234) 2.1 RATIO BILIRUBIN, TOTAL (test code = 2207) 0.4 MG/DL ALKALINE PHOSPHATASE (test code = 2204) 100 U/L AST (test code = 2218) 10 U/L ALT (test code = 2219) 13 U/L Teodoro CantuHEMOGLOBIN [id number] 00:00:00* Test Item Value Reference Range Interpretation Comme nts HEMOGLOBIN A1c (test code = 77825) 7.4 % Teodoro [id number] 00:00:00* Test Item Value Reference Range Interpretation Comme nts TESTOSTERONE (test code = 2830) 483 NG/DL Teodoro CantuCOMPREHENSIVE METABOLIC [id number] 00:00:00* Test Item Value Reference Range Interpretation Comme nts GLUCOSE (test code = 2217) 135 MG/DL BUN (test code = 2208) 9 MG/DL CREATININE (test code = 2214) 0.71 MG/DL eGFR AMER. (test cod e = 27724) 127 ML/MIN/1.73 eGFR NON- AMER. (test code = 92284) 109 ML/MIN/1.73 CALC BUN/CREAT (test code = 2235) 13 RATIO SODIUM (test code = 2231) 139 MEQ/L POTASSIUM (test code = 2228) 4.6 MEQ/L CHLORIDE (test code = 2215) 101 MEQ/L CARBON DIOXIDE (test code = 2206) 23 MEQ/L CALCIUM (test code = 2209) 9.9 MG/DL PROTEIN, TOTAL (test code = 2229) 6.9 G/DL ALBUMIN (test code = 2201) 4.7 G/DL CALC GLOBULIN (test code = 2240) 2.2 G/DL CALC A/G RATIO (test code = 2234) 2.1 RATIO BILIRUBIN, TOTAL (test code = 2207) 0.4 MG/DL ALKALINE PHOSPHATASE (test code = 2204) 100 U/L AST (test code = 2218) 10 U/L ALT (test code = 2219) 13 U/L Teodoro CantuHEMOGLOBIN [id number] 00:00:00* Test Item Value Reference Range Interpretation Comme nts HEMOGLOBIN A1c (test code = 11976) 7.4 % Teodoro [id number] 00:00:00* Test Item Value Reference Range Interpretation Comme nts TESTOSTERONE (test code = 2830) 483 NG/DL Teodoro CantuCBC W/AUTO [id number] 00:00:00* Test Item Value Reference Range Interpretation Comme nts WBC (test code = 1001) 6.1 K/UL [...] = 1013) 0.5 % IMMATURE GRANULOCYTES (test code = 1036) 0.3 % NUCLEATED RBCS (test code = 1065) 0.0 /100WBC'S PLATELET COUNT (test code = 1015) 183 K/UL ABSOLUTE NEUTROPHILS (test c ode = 1066) 3.52 K/UL ABSOLUTE LYMPHOCYTES (test c ode = 1067) 2.01 K/UL ABSOLUTE MONOCYTES (test cod e = 1068) 0.39 K/UL ABSOLUTE EOSINOPHILS (test c ode = 1040) 0.09 K/UL ABSOLUTE BASOPHILS (test cod e = 1069) 0.03 K/UL ABS IMMATURE GRANULOCYTES (t est code = 1020) 0.02 K/UL ABS NUCLEATED RBCS (test cod e = 99906) 0.00 K/UL Teodoro [id number] 00:00:00* Test Item Value Reference Range Interpretation Comme nts TESTOSTERONE (test code = 2830) 540 NG/DL Teodoro CantuPSA, [id number] 00:00:00* Test Item Value Reference Range Interpretation Comme nts PSA, TOTAL (test code = 2606) 0.26 NG/ML Teodoro CantuCBC W/AUTO [id number] 00:00:00* Test Item Value Reference Range Interpretation Comme nts WBC (test code = 1001) 6.1 K/UL [...] = 1013) 0.5 % IMMATURE GRANULOCYTES (test code = 1036) 0.3 % NUCLEATED RBCS (test code = 1065) 0.0 /100WBC'S PLATELET COUNT (test code = 1015) 183 K/UL ABSOLUTE NEUTROPHILS (test c ode = 1066) 3.52 K/UL ABSOLUTE LYMPHOCYTES (test c ode = 1067) 2.01 K/UL ABSOLUTE MONOCYTES (test cod e = 1068) 0.39 K/UL ABSOLUTE EOSINOPHILS (test c ode = 1040) 0.09 K/UL ABSOLUTE BASOPHILS (test cod e = 1069) 0.03 K/UL ABS IMMATURE GRANULOCYTES (t est code = 1020) 0.02 K/UL ABS NUCLEATED RBCS (test cod e = 90949) 0.00 K/UL [id number] 00:00:00* Test Item Value Reference Range Interpretation Comme nts TESTOSTERONE (test code = 2830) 540 NG/DL PSA, [id number] 00:00:00* Test Item Value Reference Range Interpretation Comme nts PSA, TOTAL (test code = 2606) 0.26 NG/ML CBC W/AUTO [id number] 00:00:00* Test Item Value Reference Range Interpretation Comme nts WBC (test code = 1001) 6.1 K/UL [...] = 1013) 0.5 % IMMATURE GRANULOCYTES (test code = 1036) 0.3 % NUCLEATED RBCS (test code = 1065) 0.0 /100WBC'S PLATELET COUNT (test code = 1015) 183 K/UL ABSOLUTE NEUTROPHILS (test c ode = 1066) 3.52 K/UL ABSOLUTE LYMPHOCYTES (test c ode = 1067) 2.01 K/UL ABSOLUTE MONOCYTES (test cod e = 1068) 0.39 K/UL ABSOLUTE EOSINOPHILS (test c ode = 1040) 0.09 K/UL ABSOLUTE BASOPHILS (test cod e = 1069) 0.03 K/UL ABS IMMATURE GRANULOCYTES (t est code = 1020) 0.02 K/UL ABS NUCLEATED RBCS (test cod e = 14305) 0.00 K/UL [id number] 00:00:00* Test Item Value Reference Range Interpretation Comme nts TESTOSTERONE (test code = 2830) 540 NG/DL PSA, [id number] 00:00:00* Test Item Value Reference Range Interpretation Comme nts PSA, TOTAL (test code = 2606) 0.26 NG/ML CBC W/AUTO [id number] 00:00:00* Test Item Value Reference Range Interpretation Comme nts WBC (test code = 1001) 6.1 K/UL [...] = 1013) 0.5 % IMMATURE GRANULOCYTES (test code = 1036) 0.3 % NUCLEATED RBCS (test code = 1065) 0.0 /100WBC'S PLATELET COUNT (test code = 1015) 183 K/UL ABSOLUTE NEUTROPHILS (test c ode = 1066) 3.52 K/UL ABSOLUTE LYMPHOCYTES (test c ode = 1067) 2.01 K/UL ABSOLUTE MONOCYTES (test cod e = 1068) 0.39 K/UL ABSOLUTE EOSINOPHILS (test c ode = 1040) 0.09 K/UL ABSOLUTE BASOPHILS (test cod e = 1069) 0.03 K/UL ABS IMMATURE GRANULOCYTES (t est code = 1020) 0.02 K/UL ABS NUCLEATED RBCS (test cod e = 34833) 0.00 K/UL [facility] [id number] 00:00:00* Test Item Value Reference Range Interpretation Comme nts WBC (test code = 1001) 6.1 K/UL [...] = 1013) 0.5 % IMMATURE GRANULOCYTES (test code = 1036) 0.3 % NUCLEATED RBCS (test code = 1065) 0.0 /100WBC'S PLATELET COUNT (test code = 1015) 183 K/UL ABSOLUTE NEUTROPHILS (test c ode = 1066) 3.52 K/UL ABSOLUTE LYMPHOCYTES (test c ode = 1067) 2.01 K/UL ABSOLUTE MONOCYTES (test cod e = 1068) 0.39 K/UL ABSOLUTE EOSINOPHILS (test c ode = 1040) 0.09 K/UL ABSOLUTE BASOPHILS (test cod e = 1069) 0.03 K/UL ABS IMMATURE GRANULOCYTES (t est code = 1020) 0.02 K/UL ABS NUCLEATED RBCS (test cod e = 08226) 0.00 K/UL [id number] 00:00:00* Test Item Value Reference Range Interpretation Comme nts TESTOSTERONE (test code = 2830) 540 NG/DL PSA, [id number] 00:00:00* Test Item Value Reference Range Interpretation Comme nts PSA, TOTAL (test code = 2606) 0.26 NG/ML CBC W/AUTO [id number] 00:00:00* Test Item Value Reference Range Interpretation Comme nts WBC (test code = 1001) 6.1 K/UL [...] = 1013) 0.5 % IMMATURE GRANULOCYTES (test code = 1036) 0.3 % NUCLEATED RBCS (test code = 1065) 0.0 /100WBC'S PLATELET COUNT (test code = 1015) 183 K/UL ABSOLUTE NEUTROPHILS (test c ode = 1066) 3.52 K/UL ABSOLUTE LYMPHOCYTES (test c ode = 1067) 2.01 K/UL ABSOLUTE MONOCYTES (test cod e = 1068) 0.39 K/UL ABSOLUTE EOSINOPHILS (test c ode = 1040) 0.09 K/UL ABSOLUTE BASOPHILS (test cod e = 1069) 0.03 K/UL ABS IMMATURE GRANULOCYTES (t est code = 1020) 0.02 K/UL ABS NUCLEATED RBCS (test cod e = 43074) 0.00 K/UL [id number] 00:00:00* Test Item Value Reference Range Interpretation Comme nts TESTOSTERONE (test code = 2830) 540 NG/DL PSA, [id number] 00:00:00* Test Item Value Reference Range Interpretation Comme nts PSA, TOTAL (test code = 2606) 0.26 NG/ML CBC W/AUTO [id number] 00:00:00* Test Item Value Reference Range Interpretation Comme nts WBC (test code = 1001) 6.1 K/UL [...] = 1013) 0.5 % IMMATURE GRANULOCYTES (test code = 1036) 0.3 % NUCLEATED RBCS (test code = 1065) 0.0 /100WBC'S PLATELET COUNT (test code = 1015) 183 K/UL ABSOLUTE NEUTROPHILS (test c ode = 1066) 3.52 K/UL ABSOLUTE LYMPHOCYTES (test c ode = 1067) 2.01 K/UL ABSOLUTE MONOCYTES (test cod e = 1068) 0.39 K/UL ABSOLUTE EOSINOPHILS (test c ode = 1040) 0.09 K/UL ABSOLUTE BASOPHILS (test cod e = 1069) 0.03 K/UL ABS IMMATURE GRANULOCYTES (t est code = 1020) 0.02 K/UL ABS NUCLEATED RBCS (test cod e = 36051) 0.00 K/UL [id number] 00:00:00* Test Item Value Reference Range Interpretation Comme nts TESTOSTERONE (test code = 2830) 540 NG/DL [employer] [id number] 00:00:00* Test Item Value Reference Range Interpretation Comme nts TESTOSTERONE (test code = 2830) 540 NG/DL PSA, [id number] 00:00:00* Test Item Value Reference Range Interpretation Comme nts PSA, TOTAL (test code = 2606) 0.26 NG/ML CBC W/AUTO [id number] 00:00:00* Test Item Value Reference Range Interpretation Comme nts WBC (test code = 1001) 6.1 K/UL [...] = 1013) 0.5 % IMMATURE GRANULOCYTES (test code = 1036) 0.3 % NUCLEATED RBCS (test code = 1065) 0.0 /100WBC'S PLATELET COUNT (test code = 1015) 183 K/UL ABSOLUTE NEUTROPHILS (test c ode = 1066) 3.52 K/UL ABSOLUTE LYMPHOCYTES (test c ode = 1067) 2.01 K/UL ABSOLUTE MONOCYTES (test cod e = 1068) 0.39 K/UL ABSOLUTE EOSINOPHILS (test c ode = 1040) 0.09 K/UL ABSOLUTE BASOPHILS (test cod e = 1069) 0.03 K/UL ABS IMMATURE GRANULOCYTES (t est code = 1020) 0.02 K/UL ABS NUCLEATED RBCS (test cod e = 07057) 0.00 K/UL [id number] 00:00:00* Test Item Value Reference Range Interpretation Comme nts TESTOSTERONE (test code = 2830) 540 NG/DL PSA, [id number] 00:00:00* Test Item Value Reference Range Interpretation Comme nts PSA, TOTAL (test code = 2606) 0.26 NG/ML PSA, [id number] 00:00:00* Test Item Value Reference Range Interpretation Comme nts PSA, TOTAL (test code = 2606) 0.26 NG/ML [facility] Dodge AustinCBC W/AUTO [id number] 00:00:00* Test Item Value Reference Range Interpretation Comme nts WBC (test code = 1001) 6.1 K/UL [...] = 1013) 0.5 % IMMATURE GRANULOCYTES (test code = 1036) 0.3 % NUCLEATED RBCS (test code = 1065) 0.0 /100WBC'S PLATELET COUNT (test code = 1015) 183 K/UL ABSOLUTE NEUTROPHILS (test c ode = 1066) 3.52 K/UL ABSOLUTE LYMPHOCYTES (test c ode = 1067) 2.01 K/UL ABSOLUTE MONOCYTES (test cod e = 1068) 0.39 K/UL ABSOLUTE EOSINOPHILS (test c ode = 1040) 0.09 K/UL ABSOLUTE BASOPHILS (test cod e = 1069) 0.03 K/UL ABS IMMATURE GRANULOCYTES (t est code = 1020) 0.02 K/UL ABS NUCLEATED RBCS (test cod e = 24136) 0.00 K/UL Teodoro CantuCBC W/AUTO [id number] 00:00:00* Test Item Value Reference Range Interpretation Comme nts WBC (test code = 1001) 6.1 K/UL [...] = 1013) 0.5 % IMMATURE GRANULOCYTES (test code = 1036) 0.3 % NUCLEATED RBCS (test code = 1065) 0.0 /100WBC'S PLATELET COUNT (test code = 1015) 183 K/UL ABSOLUTE NEUTROPHILS (test c ode = 1066) 3.52 K/UL ABSOLUTE LYMPHOCYTES (test c ode = 1067) 2.01 K/UL ABSOLUTE MONOCYTES (test cod e = 1068) 0.39 K/UL ABSOLUTE EOSINOPHILS (test c ode = 1040) 0.09 K/UL ABSOLUTE BASOPHILS (test cod e = 1069) 0.03 K/UL ABS IMMATURE GRANULOCYTES (t est code = 1020) 0.02 K/UL ABS NUCLEATED RBCS (test cod e = 65152) 0.00 K/UL [employer] [id number] 00:00:00* Test Item Value Reference Range Interpretation Comme nts TESTOSTERONE (test code = 2830) 540 NG/DL Teodoro CantuPSA, [id number] 00:00:00* Test Item Value Reference Range Interpretation Comme nts PSA, TOTAL (test code = 2606) 0.26 NG/ML Teodoro [id number] 00:00:00* Test Item Value Reference Range Interpretation Comme nts TESTOSTERONE (test code = 2830) 540 NG/DL Teodoro CantuCBC W/AUTO [id number] 00:00:00* Test Item Value Reference Range Interpretation Comme nts WBC (test code = 1001) 6.1 K/UL [...] = 1013) 0.5 % IMMATURE GRANULOCYTES (test code = 1036) 0.3 % NUCLEATED RBCS (test code = 1065) 0.0 /100WBC'S PLATELET COUNT (test code = 1015) 183 K/UL ABSOLUTE NEUTROPHILS (test c ode = 1066) 3.52 K/UL ABSOLUTE LYMPHOCYTES (test c ode = 1067) 2.01 K/UL ABSOLUTE MONOCYTES (test cod e = 1068) 0.39 K/UL ABSOLUTE EOSINOPHILS (test c ode = 1040) 0.09 K/UL ABSOLUTE BASOPHILS (test cod e = 1069) 0.03 K/UL ABS IMMATURE GRANULOCYTES (t est code = 1020) 0.02 K/UL ABS NUCLEATED RBCS (test cod e = 94161) 0.00 K/UL Teodoro CantuPSA, [id number] 00:00:00* Test Item Value Reference Range Interpretation Comme nts PSA, TOTAL (test code = 2606) 0.26 NG/ML Teodoro [id number] 00:00:00* Test Item Value Reference Range Interpretation Comme nts TESTOSTERONE (test code = 2830) 540 NG/DL Teodoro CantuPSA, [id number] 00:00:00* Test Item Value Reference Range Interpretation Comme nts PSA, TOTAL (test code = 2606) 0.26 NG/ML Teodoro CantuCBC W/AUTO [id number] 00:00:00* Test Item Value Reference Range Interpretation Comme nts WBC (test code = 1001) 6.1 K/UL [...] = 1013) 0.5 % IMMATURE GRANULOCYTES (test code = 1036) 0.3 % NUCLEATED RBCS (test code = 1065) 0.0 /100WBC'S PLATELET COUNT (test code = 1015) 183 K/UL ABSOLUTE NEUTROPHILS (test c ode = 1066) 3.52 K/UL ABSOLUTE LYMPHOCYTES (test c ode = 1067) 2.01 K/UL ABSOLUTE MONOCYTES (test cod e = 1068) 0.39 K/UL ABSOLUTE EOSINOPHILS (test c ode = 1040) 0.09 K/UL ABSOLUTE BASOPHILS (test cod e = 1069) 0.03 K/UL ABS IMMATURE GRANULOCYTES (t est code = 1020) 0.02 K/UL ABS NUCLEATED RBCS (test cod e = 17246) 0.00 K/UL Teodoro [id number] 00:00:00* Test Item Value Reference Range Interpretation Comme nts TESTOSTERONE (test code = 2830) 540 NG/DL Teodoro CantuPSA, [id number] 00:00:00* Test Item Value Reference Range Interpretation Comme nts PSA, TOTAL (test code = 2606) 0.26 NG/ML Teodoro CantuCBC W/AUTO [id number] 00:00:00* Test Item Value Reference Range Interpretation Comme nts WBC (test code = 1001) 6.1 K/UL [...] = 1013) 0.5 % IMMATURE GRANULOCYTES (test code = 1036) 0.3 % NUCLEATED RBCS (test code = 1065) 0.0 /100WBC'S PLATELET COUNT (test code = 1015) 183 K/UL ABSOLUTE NEUTROPHILS (test c ode = 1066) 3.52 K/UL ABSOLUTE LYMPHOCYTES (test c ode = 1067) 2.01 K/UL ABSOLUTE MONOCYTES (test cod e = 1068) 0.39 K/UL ABSOLUTE EOSINOPHILS (test c ode = 1040) 0.09 K/UL ABSOLUTE BASOPHILS (test cod e = 1069) 0.03 K/UL ABS IMMATURE GRANULOCYTES (t est code = 1020) 0.02 K/UL ABS NUCLEATED RBCS (test cod e = 21850) 0.00 K/UL Teodoro [id number] 00:00:00* Test Item Value Reference Range Interpretation Comme nts TESTOSTERONE (test code = 2830) 540 NG/DL Teodoro CantuPSA, [id number] 00:00:00* Test Item Value Reference Range Interpretation Comme nts PSA, TOTAL (test code = 2606) 0.26 NG/ML Teodoro CantuCBC W/AUTO [id number] 00:00:00* Test Item Value Reference Range Interpretation Comme nts WBC (test code = 1001) 6.1 K/UL [...] = 1013) 0.5 % IMMATURE GRANULOCYTES (test code = 1036) 0.3 % NUCLEATED RBCS (test code = 1065) 0.0 /100WBC'S PLATELET COUNT (test code = 1015) 183 K/UL ABSOLUTE NEUTROPHILS (test c ode = 1066) 3.52 K/UL ABSOLUTE LYMPHOCYTES (test c ode = 1067) 2.01 K/UL ABSOLUTE MONOCYTES (test cod e = 1068) 0.39 K/UL ABSOLUTE EOSINOPHILS (test c ode = 1040) 0.09 K/UL ABSOLUTE BASOPHILS (test cod e = 1069) 0.03 K/UL ABS IMMATURE GRANULOCYTES (t est code = 1020) 0.02 K/UL ABS NUCLEATED RBCS (test cod e = 84711) 0.00 K/UL Teodoro [id number] 00:00:00* Test Item Value Reference Range Interpretation Comme nts TESTOSTERONE (test code = 2830) 540 NG/DL Teodoro CantuPSA, [id number] 00:00:00* Test Item Value Reference Range Interpretation Comme nts PSA, TOTAL (test code = 2606) 0.26 NG/ML Teodoro CantuCBC W/AUTO [id number] 00:00:00* Test Item Value Reference Range Interpretation Comme nts WBC (test code = 1001) 6.1 K/UL [...] = 1013) 0.5 % IMMATURE GRANULOCYTES (test code = 1036) 0.3 % NUCLEATED RBCS (test code = 1065) 0.0 /100WBC'S PLATELET COUNT (test code = 1015) 183 K/UL ABSOLUTE NEUTROPHILS (test c ode = 1066) 3.52 K/UL ABSOLUTE LYMPHOCYTES (test c ode = 1067) 2.01 K/UL ABSOLUTE MONOCYTES (test cod e = 1068) 0.39 K/UL ABSOLUTE EOSINOPHILS (test c ode = 1040) 0.09 K/UL ABSOLUTE BASOPHILS (test cod e = 1069) 0.03 K/UL ABS IMMATURE GRANULOCYTES (t est code = 1020) 0.02 K/UL ABS NUCLEATED RBCS (test cod e = 67409) 0.00 K/UL Teodoro [id number] 00:00:00* Test Item Value Reference Range Interpretation Comme nts TESTOSTERONE (test code = 2830) 540 NG/DL Teodoro CantuPSA, [id number] 00:00:00* Test Item Value Reference Range Interpretation Comme nts PSA, TOTAL (test code = 2606) 0.26 NG/ML Teodoro CantuCBC W/AUTO [id number] 00:00:00* Test Item Value Reference Range Interpretation Comme nts WBC (test code = 1001) 6.1 K/UL [...] = 1013) 0.5 % IMMATURE GRANULOCYTES (test code = 1036) 0.3 % NUCLEATED RBCS (test code = 1065) 0.0 /100WBC'S PLATELET COUNT (test code = 1015) 183 K/UL ABSOLUTE NEUTROPHILS (test c ode = 1066) 3.52 K/UL ABSOLUTE LYMPHOCYTES (test c ode = 1067) 2.01 K/UL ABSOLUTE MONOCYTES (test cod e = 1068) 0.39 K/UL ABSOLUTE EOSINOPHILS (test c ode = 1040) 0.09 K/UL ABSOLUTE BASOPHILS (test cod e = 1069) 0.03 K/UL ABS IMMATURE GRANULOCYTES (t est code = 1020) 0.02 K/UL ABS NUCLEATED RBCS (test cod e = 05141) 0.00 K/UL Teodoro [id number] 00:00:00* Test Item Value Reference Range Interpretation Comme nts TESTOSTERONE (test code = 2830) 540 NG/DL Teodoro CantuPSA, [id number] 00:00:00* Test Item Value Reference Range Interpretation Comme nts PSA, TOTAL (test code = 2606) 0.26 NG/ML Teodoro CantuCBC W/AUTO [id number] 00:00:00* Test Item Value Reference Range Interpretation Comme nts WBC (test code = 1001) 6.1 K/UL [...] = 1013) 0.5 % IMMATURE GRANULOCYTES (test code = 1036) 0.3 % NUCLEATED RBCS (test code = 1065) 0.0 /100WBC'S PLATELET COUNT (test code = 1015) 183 K/UL ABSOLUTE NEUTROPHILS (test c ode = 1066) 3.52 K/UL ABSOLUTE LYMPHOCYTES (test c ode = 1067) 2.01 K/UL ABSOLUTE MONOCYTES (test cod e = 1068) 0.39 K/UL ABSOLUTE EOSINOPHILS (test c ode = 1040) 0.09 K/UL ABSOLUTE BASOPHILS (test cod e = 1069) 0.03 K/UL ABS IMMATURE GRANULOCYTES (t est code = 1020) 0.02 K/UL ABS NUCLEATED RBCS (test cod e = 32327) 0.00 K/UL Teodoro [id number] 00:00:00* Test Item Value Reference Range Interpretation Comme nts TESTOSTERONE (test code = 2830) 540 NG/DL Teodoro CantuPSA, [id number] 00:00:00* Test Item Value Reference Range Interpretation Comme nts PSA, TOTAL (test code = 2606) 0.26 NG/ML Teodoro CantuBRAIN NATRIURETIC PEPTIDE [ADDED]2021-09-10 00:00:00* Test Item Value Reference Range Interpretation Comme nts BRAIN NATRIURETIC PEPTIDE (t est code = 13612) 50 PG/ML Teodoro Dodge AustinBRAIN NATRIURETIC PEPTIDE [ADDED]2021-09-10 00:00:00* Test Item Value Reference Range Interpretation Comme nts BRAIN NATRIURETIC PEPTIDE (t est code = 44163) 50 PG/ML BRAIN NATRIURETIC PEPTIDE [ADDED]2021-09-10 00:00:00* Test Item Value Reference Range Interpretation Comme nts BRAIN NATRIURETIC PEPTIDE (t est code = 93897) 50 PG/ML BRAIN NATRIURETIC PEPTIDE [ADDED]2021-09-10 00:00:00* Test Item Value Reference Range Interpretation Comme nts BRAIN NATRIURETIC PEPTIDE (t est code = 79337) 50 PG/ML BRAIN NATRIURETIC PEPTIDE [ADDED]2021-09-10 00:00:00* Test Item Value Reference Range Interpretation Comme nts BRAIN NATRIURETIC PEPTIDE (t est code = 67720) 50 PG/ML BRAIN NATRIURETIC PEPTIDE [ADDED]2021-09-10 00:00:00* Test Item Value Reference Range Interpretation Comme nts BRAIN NATRIURETIC PEPTIDE (t est code = 39547) 50 PG/ML BRAIN NATRIURETIC PEPTIDE [ADDED]2021-09-10 00:00:00* Test Item Value Reference Range Interpretation Comme nts BRAIN NATRIURETIC PEPTIDE (t est code = 72347) 50 PG/ML BRAIN NATRIURETIC PEPTIDE [ADDED]2021-09-10 00:00:00* Test Item Value Reference Range Interpretation Comme nts BRAIN NATRIURETIC PEPTIDE (t est code = 28932) 50 PG/ML Teodoro Dodge AustinBRAIN NATRIURETIC PEPTIDE [ADDED]2021-09-10 00:00:00* Test Item Value Reference Range Interpretation Comme nts BRAIN NATRIURETIC PEPTIDE (t est code = 72114) 50 PG/ML Teodoro Dodge AustinBRAIN NATRIURETIC PEPTIDE [ADDED]2021-09-10 00:00:00* Test Item Value Reference Range Interpretation Comme nts BRAIN NATRIURETIC PEPTIDE (t est code = 50950) 50 PG/ML Teodoro F AustinBRAIN NATRIURETIC PEPTIDE [ADDED]2021-09-10 00:00:00* Test Item Value Reference Range Interpretation Comme nts BRAIN NATRIURETIC PEPTIDE (t est code = 06672) 50 PG/ML Teodoro F AustinBRAIN NATRIURETIC PEPTIDE [ADDED]2021-09-10 00:00:00* Test Item Value Reference Range Interpretation Comme nts BRAIN NATRIURETIC PEPTIDE (t est code = 03887) 50 PG/ML Teodoro F AustinBRAIN NATRIURETIC PEPTIDE [ADDED]2021-09-10 00:00:00* Test Item Value Reference Range Interpretation Comme nts BRAIN NATRIURETIC PEPTIDE (t est code = 64740) 50 PG/ML Teodoro Dodge AustinBRAIN NATRIURETIC PEPTIDE [ADDED]2021-09-10 00:00:00* Test Item Value Reference Range Interpretation Comme nts BRAIN NATRIURETIC PEPTIDE (t est code = 31878) 50 PG/ML Teodoro Dodge AustinBRAIN NATRIURETIC PEPTIDE [ADDED]2021-09-10 00:00:00* Test Item Value Reference Range Interpretation Comme nts BRAIN NATRIURETIC PEPTIDE (t est code = 38078) 50 PG/ML Teodoro Dodge AustinBRAIN NATRIURETIC PEPTIDE [ADDED]2021-09-10 00:00:00* Test Item Value Reference Range Interpretation Comme nts BRAIN NATRIURETIC PEPTIDE (t est code = 45926) 50 PG/ML Teodoro Dodge AustinBRAIN NATRIURETIC PEPTIDE [ADDED]2021-09-10 00:00:00* Test Item Value Reference Range Interpretation Comme nts BRAIN NATRIURETIC PEPTIDE (t est code = 19627) 50 PG/ML Teodoro CantuCOMPREHENSIVE METABOLIC [id number] 00:00:00* Test Item Value Reference Range Interpretation Comme nts GLUCOSE (test code = 2217) 189 MG/DL BUN (test code = 2208) 9 MG/DL CREATININE (test code = 2214) 0.98 MG/DL eGFR AMER. (test cod e = 34794) 104 ML/MIN/1.73 eGFR NON- AMER. (test code = 38485) 90 ML/MIN/1.73 CALC BUN/CREAT (test code = 2235) 9 RATIO SODIUM (test code = 2231) 143 MEQ/L POTASSIUM (test code = 2228) 4.5 MEQ/L CHLORIDE (test code = 2215) 105 MEQ/L CARBON DIOXIDE (test code = 2206) 22 MEQ/L CALCIUM (test code = 2209) 9.1 MG/DL PROTEIN, TOTAL (test code = 2229) 6.6 G/DL ALBUMIN (test code = 2201) 4.3 G/DL CALC GLOBULIN (test code = 2240) 2.3 G/DL CALC A/G RATIO (test code = 2234) 1.9 RATIO BILIRUBIN, TOTAL (test code = 2207) 0.4 MG/DL ALKALINE PHOSPHATASE (test code = 2204) 111 U/L AST (test code = 2218) 7 U/L ALT (test code = 2219) 15 U/L Teodoro CantuCOMPREHENSIVE METABOLIC [id number] 00:00:00* Test Item Value Reference Range Interpretation Comme nts GLUCOSE (test code = 2217) 189 MG/DL BUN (test code = 2208) 9 MG/DL CREATININE (test code = 2214) 0.98 MG/DL eGFR AMER. (test cod e = 17509) 104 ML/MIN/1.73 eGFR NON- AMER. (test code = 94418) 90 ML/MIN/1.73 CALC BUN/CREAT (test code = 2235) 9 RATIO SODIUM (test code = 2231) 143 MEQ/L POTASSIUM (test code = 2228) 4.5 MEQ/L CHLORIDE (test code = 2215) 105 MEQ/L CARBON DIOXIDE (test code = 2206) 22 MEQ/L CALCIUM (test code = 2209) 9.1 MG/DL PROTEIN, TOTAL (test code = 2229) 6.6 G/DL ALBUMIN (test code = 2201) 4.3 G/DL CALC GLOBULIN (test code = 2240) 2.3 G/DL CALC A/G RATIO (test code = 2234) 1.9 RATIO BILIRUBIN, TOTAL (test code = 2207) 0.4 MG/DL ALKALINE PHOSPHATASE (test code = 2204) 111 U/L AST (test code = 2218) 7 U/L ALT (test code = 2219) 15 U/L COMPREHENSIVE METABOLIC [id number] 00:00:00* Test Item Value Reference Range Interpretation Comme nts GLUCOSE (test code = 2217) 189 MG/DL BUN (test code = 2208) 9 MG/DL CREATININE (test code = 2214) 0.98 MG/DL eGFR AMER. (test cod e = 23979) 104 ML/MIN/1.73 eGFR NON- AMER. (test code = 20742) 90 ML/MIN/1.73 CALC BUN/CREAT (test code = 2235) 9 RATIO SODIUM (test code = 2231) 143 MEQ/L POTASSIUM (test code = 2228) 4.5 MEQ/L CHLORIDE (test code = 2215) 105 MEQ/L CARBON DIOXIDE (test code = 2206) 22 MEQ/L CALCIUM (test code = 2209) 9.1 MG/DL PROTEIN, TOTAL (test code = 2229) 6.6 G/DL ALBUMIN (test code = 2201) 4.3 G/DL CALC GLOBULIN (test code = 2240) 2.3 G/DL CALC A/G RATIO (test code = 2234) 1.9 RATIO BILIRUBIN, TOTAL (test code = 2207) 0.4 MG/DL ALKALINE PHOSPHATASE (test code = 2204) 111 U/L AST (test code = 2218) 7 U/L ALT (test code = 2219) 15 U/L COMPREHENSIVE METABOLIC [id number] 00:00:00* Test Item Value Reference Range Interpretation Comme nts GLUCOSE (test code = 2217) 189 MG/DL BUN (test code = 2208) 9 MG/DL CREATININE (test code = 2214) 0.98 MG/DL eGFR AMER. (test cod e = 17317) 104 ML/MIN/1.73 eGFR NON- AMER. (test code = 01903) 90 ML/MIN/1.73 CALC BUN/CREAT (test code = 2235) 9 RATIO SODIUM (test code = 2231) 143 MEQ/L POTASSIUM (test code = 2228) 4.5 MEQ/L CHLORIDE (test code = 2215) 105 MEQ/L CARBON DIOXIDE (test code = 2206) 22 MEQ/L CALCIUM (test code = 2209) 9.1 MG/DL PROTEIN, TOTAL (test code = 2229) 6.6 G/DL ALBUMIN (test code = 2201) 4.3 G/DL CALC GLOBULIN (test code = 2240) 2.3 G/DL CALC A/G RATIO (test code = 2234) 1.9 RATIO BILIRUBIN, TOTAL (test code = 2207) 0.4 MG/DL ALKALINE PHOSPHATASE (test code = 2204) 111 U/L AST (test code = 2218) 7 U/L ALT (test code = 2219) 15 U/L Teodoro F PepeCOMPREHENSIVE METABOLIC [id number] 00:00:00* Test Item Value Reference Range Interpretation Comme nts GLUCOSE (test code = 2217) 189 MG/DL BUN (test code = 2208) 9 MG/DL CREATININE (test code = 2214) 0.98 MG/DL eGFR AMER. (test cod e = 49984) 104 ML/MIN/1.73 eGFR NON- AMER. (test code = 60146) 90 ML/MIN/1.73 CALC BUN/CREAT (test code = 2235) 9 RATIO SODIUM (test code = 2231) 143 MEQ/L POTASSIUM (test code = 2228) 4.5 MEQ/L CHLORIDE (test code = 2215) 105 MEQ/L CARBON DIOXIDE (test code = 2206) 22 MEQ/L CALCIUM (test code = 2209) 9.1 MG/DL PROTEIN, TOTAL (test code = 2229) 6.6 G/DL ALBUMIN (test code = 2201) 4.3 G/DL CALC GLOBULIN (test code = 2240) 2.3 G/DL CALC A/G RATIO (test code = 2234) 1.9 RATIO BILIRUBIN, TOTAL (test code = 2207) 0.4 MG/DL ALKALINE PHOSPHATASE (test code = 2204) 111 U/L AST (test code = 2218) 7 U/L ALT (test code = 2219) 15 U/L Teodoro Echo BartleyCOMPREHENSIVE METABOLIC [id number] 00:00:00* Test Item Value Reference Range Interpretation Comme nts GLUCOSE (test code = 2217) 189 MG/DL BUN (test code = 2208) 9 MG/DL CREATININE (test code = 2214) 0.98 MG/DL eGFR AMER. (test cod e = 81253) 104 ML/MIN/1.73 eGFR NON- AMER. (test code = 14354) 90 ML/MIN/1.73 CALC BUN/CREAT (test code = 2235) 9 RATIO SODIUM (test code = 2231) 143 MEQ/L POTASSIUM (test code = 2228) 4.5 MEQ/L CHLORIDE (test code = 2215) 105 MEQ/L CARBON DIOXIDE (test code = 2206) 22 MEQ/L CALCIUM (test code = 2209) 9.1 MG/DL PROTEIN, TOTAL (test code = 2229) 6.6 G/DL ALBUMIN (test code = 2201) 4.3 G/DL CALC GLOBULIN (test code = 2240) 2.3 G/DL CALC A/G RATIO (test code = 2234) 1.9 RATIO BILIRUBIN, TOTAL (test code = 2207) 0.4 MG/DL ALKALINE PHOSPHATASE (test code = 2204) 111 U/L AST (test code = 2218) 7 U/L ALT (test code = 2219) 15 U/L COMPREHENSIVE METABOLIC [id number] 00:00:00* Test Item Value Reference Range Interpretation Comme nts GLUCOSE (test code = 2217) 189 MG/DL BUN (test code = 2208) 9 MG/DL CREATININE (test code = 2214) 0.98 MG/DL eGFR AMER. (test cod e = 39947) 104 ML/MIN/1.73 eGFR NON- AMER. (test code = 03361) 90 ML/MIN/1.73 CALC BUN/CREAT (test code = 2235) 9 RATIO SODIUM (test code = 2231) 143 MEQ/L POTASSIUM (test code = 2228) 4.5 MEQ/L CHLORIDE (test code = 2215) 105 MEQ/L CARBON DIOXIDE (test code = 2206) 22 MEQ/L CALCIUM (test code = 2209) 9.1 MG/DL PROTEIN, TOTAL (test code = 2229) 6.6 G/DL ALBUMIN (test code = 2201) 4.3 G/DL CALC GLOBULIN (test code = 2240) 2.3 G/DL CALC A/G RATIO (test code = 2234) 1.9 RATIO BILIRUBIN, TOTAL (test code = 2207) 0.4 MG/DL ALKALINE PHOSPHATASE (test code = 2204) 111 U/L AST (test code = 2218) 7 U/L ALT (test code = 2219) 15 U/L COMPREHENSIVE METABOLIC [id number] 00:00:00* Test Item Value Reference Range Interpretation Comme nts GLUCOSE (test code = 2217) 189 MG/DL BUN (test code = 2208) 9 MG/DL CREATININE (test code = 2214) 0.98 MG/DL eGFR AMER. (test cod e = 04180) 104 ML/MIN/1.73 eGFR NON- AMER. (test code = 13938) 90 ML/MIN/1.73 CALC BUN/CREAT (test code = 2235) 9 RATIO SODIUM (test code = 2231) 143 MEQ/L POTASSIUM (test code = 2228) 4.5 MEQ/L CHLORIDE (test code = 2215) 105 MEQ/L CARBON DIOXIDE (test code = 2206) 22 MEQ/L CALCIUM (test code = 2209) 9.1 MG/DL PROTEIN, TOTAL (test code = 2229) 6.6 G/DL ALBUMIN (test code = 2201) 4.3 G/DL CALC GLOBULIN (test code = 2240) 2.3 G/DL CALC A/G RATIO (test code = 2234) 1.9 RATIO BILIRUBIN, TOTAL (test code = 2207) 0.4 MG/DL ALKALINE PHOSPHATASE (test code = 2204) 111 U/L AST (test code = 2218) 7 U/L ALT (test code = 2219) 15 U/L COMPREHENSIVE METABOLIC [id number] 00:00:00* Test Item Value Reference Range Interpretation Comme nts GLUCOSE (test code = 2217) 189 MG/DL BUN (test code = 2208) 9 MG/DL CREATININE (test code = 2214) 0.98 MG/DL eGFR AMER. (test cod e = 72323) 104 ML/MIN/1.73 eGFR NON- AMER. (test code = 80636) 90 ML/MIN/1.73 CALC BUN/CREAT (test code = 2235) 9 RATIO SODIUM (test code = 2231) 143 MEQ/L POTASSIUM (test code = 2228) 4.5 MEQ/L CHLORIDE (test code = 2215) 105 MEQ/L CARBON DIOXIDE (test code = 2206) 22 MEQ/L CALCIUM (test code = 2209) 9.1 MG/DL PROTEIN, TOTAL (test code = 2229) 6.6 G/DL ALBUMIN (test code = 2201) 4.3 G/DL CALC GLOBULIN (test code = 2240) 2.3 G/DL CALC A/G RATIO (test code = 2234) 1.9 RATIO BILIRUBIN, TOTAL (test code = 2207) 0.4 MG/DL ALKALINE PHOSPHATASE (test code = 2204) 111 U/L AST (test code = 2218) 7 U/L ALT (test code = 2219) 15 U/L COMPREHENSIVE METABOLIC [id number] 00:00:00* Test Item Value Reference Range Interpretation Comme nts GLUCOSE (test code = 2217) 189 MG/DL BUN (test code = 2208) 9 MG/DL CREATININE (test code = 2214) 0.98 MG/DL eGFR AMER. (test cod e = 75028) 104 ML/MIN/1.73 eGFR NON- AMER. (test code = 89031) 90 ML/MIN/1.73 CALC BUN/CREAT (test code = 2235) 9 RATIO SODIUM (test code = 2231) 143 MEQ/L POTASSIUM (test code = 2228) 4.5 MEQ/L CHLORIDE (test code = 2215) 105 MEQ/L CARBON DIOXIDE (test code = 2206) 22 MEQ/L CALCIUM (test code = 2209) 9.1 MG/DL PROTEIN, TOTAL (test code = 2229) 6.6 G/DL ALBUMIN (test code = 2201) 4.3 G/DL CALC GLOBULIN (test code = 2240) 2.3 G/DL CALC A/G RATIO (test code = 2234) 1.9 RATIO BILIRUBIN, TOTAL (test code = 2207) 0.4 MG/DL ALKALINE PHOSPHATASE (test code = 2204) 111 U/L AST (test code = 2218) 7 U/L ALT (test code = 2219) 15 U/L Teodoro Dodge BartleyCOMPREHENSIVE METABOLIC [id number] 00:00:00* Test Item Value Reference Range Interpretation Comme nts GLUCOSE (test code = 2217) 189 MG/DL BUN (test code = 2208) 9 MG/DL CREATININE (test code = 2214) 0.98 MG/DL eGFR AMER. (test cod e = 08129) 104 ML/MIN/1.73 eGFR NON- AMER. (test code = 54693) 90 ML/MIN/1.73 CALC BUN/CREAT (test code = 2235) 9 RATIO SODIUM (test code = 2231) 143 MEQ/L POTASSIUM (test code = 2228) 4.5 MEQ/L CHLORIDE (test code = 2215) 105 MEQ/L CARBON DIOXIDE (test code = 2206) 22 MEQ/L CALCIUM (test code = 2209) 9.1 MG/DL PROTEIN, TOTAL (test code = 2229) 6.6 G/DL ALBUMIN (test code = 2201) 4.3 G/DL CALC GLOBULIN (test code = 2240) 2.3 G/DL CALC A/G RATIO (test code = 2234) 1.9 RATIO BILIRUBIN, TOTAL (test code = 2207) 0.4 MG/DL ALKALINE PHOSPHATASE (test code = 2204) 111 U/L AST (test code = 2218) 7 U/L ALT (test code = 2219) 15 U/L Teodoro Dodge BartleyCOMPREHENSIVE METABOLIC [id number] 00:00:00* Test Item Value Reference Range Interpretation Comme nts GLUCOSE (test code = 2217) 189 MG/DL BUN (test code = 2208) 9 MG/DL CREATININE (test code = 2214) 0.98 MG/DL eGFR AMER. (test cod e = 62840) 104 ML/MIN/1.73 eGFR NON- AMER. (test code = 91836) 90 ML/MIN/1.73 CALC BUN/CREAT (test code = 2235) 9 RATIO SODIUM (test code = 2231) 143 MEQ/L POTASSIUM (test code = 2228) 4.5 MEQ/L CHLORIDE (test code = 2215) 105 MEQ/L CARBON DIOXIDE (test code = 2206) 22 MEQ/L CALCIUM (test code = 2209) 9.1 MG/DL PROTEIN, TOTAL (test code = 2229) 6.6 G/DL ALBUMIN (test code = 2201) 4.3 G/DL CALC GLOBULIN (test code = 2240) 2.3 G/DL CALC A/G RATIO (test code = 2234) 1.9 RATIO BILIRUBIN, TOTAL (test code = 2207) 0.4 MG/DL ALKALINE PHOSPHATASE (test code = 2204) 111 U/L AST (test code = 2218) 7 U/L ALT (test code = 2219) 15 U/L Teodoro Dodge BartleyCOMPREHENSIVE METABOLIC [id number] 00:00:00* Test Item Value Reference Range Interpretation Comme nts GLUCOSE (test code = 2217) 189 MG/DL BUN (test code = 2208) 9 MG/DL CREATININE (test code = 2214) 0.98 MG/DL eGFR AMER. (test cod e = 93905) 104 ML/MIN/1.73 eGFR NON- AMER. (test code = 00764) 90 ML/MIN/1.73 CALC BUN/CREAT (test code = 2235) 9 RATIO SODIUM (test code = 2231) 143 MEQ/L POTASSIUM (test code = 2228) 4.5 MEQ/L CHLORIDE (test code = 2215) 105 MEQ/L CARBON DIOXIDE (test code = 2206) 22 MEQ/L CALCIUM (test code = 2209) 9.1 MG/DL PROTEIN, TOTAL (test code = 2229) 6.6 G/DL ALBUMIN (test code = 2201) 4.3 G/DL CALC GLOBULIN (test code = 2240) 2.3 G/DL CALC A/G RATIO (test code = 2234) 1.9 RATIO BILIRUBIN, TOTAL (test code = 2207) 0.4 MG/DL ALKALINE PHOSPHATASE (test code = 2204) 111 U/L AST (test code = 2218) 7 U/L ALT (test code = 2219) 15 U/L Teodoro F BartleyCOMPREHENSIVE METABOLIC [id number] 00:00:00* Test Item Value Reference Range Interpretation Comme nts GLUCOSE (test code = 2217) 189 MG/DL BUN (test code = 2208) 9 MG/DL CREATININE (test code = 2214) 0.98 MG/DL eGFR AMER. (test cod e = 68742) 104 ML/MIN/1.73 eGFR NON- AMER. (test code = 30192) 90 ML/MIN/1.73 CALC BUN/CREAT (test code = 2235) 9 RATIO SODIUM (test code = 2231) 143 MEQ/L POTASSIUM (test code = 2228) 4.5 MEQ/L CHLORIDE (test code = 2215) 105 MEQ/L CARBON DIOXIDE (test code = 2206) 22 MEQ/L CALCIUM (test code = 2209) 9.1 MG/DL PROTEIN, TOTAL (test code = 2229) 6.6 G/DL ALBUMIN (test code = 2201) 4.3 G/DL CALC GLOBULIN (test code = 2240) 2.3 G/DL CALC A/G RATIO (test code = 2234) 1.9 RATIO BILIRUBIN, TOTAL (test code = 2207) 0.4 MG/DL ALKALINE PHOSPHATASE (test code = 2204) 111 U/L AST (test code = 2218) 7 U/L ALT (test code = 2219) 15 U/L Teodoro F AustinCOMPREHENSIVE METABOLIC [id number] 00:00:00* Test Item Value Reference Range Interpretation Comme nts GLUCOSE (test code = 2217) 189 MG/DL BUN (test code = 2208) 9 MG/DL CREATININE (test code = 2214) 0.98 MG/DL eGFR AMER. (test cod e = 04321) 104 ML/MIN/1.73 eGFR NON- AMER. (test code = 17375) 90 ML/MIN/1.73 CALC BUN/CREAT (test code = 2235) 9 RATIO SODIUM (test code = 2231) 143 MEQ/L POTASSIUM (test code = 2228) 4.5 MEQ/L CHLORIDE (test code = 2215) 105 MEQ/L CARBON DIOXIDE (test code = 2206) 22 MEQ/L CALCIUM (test code = 2209) 9.1 MG/DL PROTEIN, TOTAL (test code = 2229) 6.6 G/DL ALBUMIN (test code = 2201) 4.3 G/DL CALC GLOBULIN (test code = 2240) 2.3 G/DL CALC A/G RATIO (test code = 2234) 1.9 RATIO BILIRUBIN, TOTAL (test code = 2207) 0.4 MG/DL ALKALINE PHOSPHATASE (test code = 2204) 111 U/L AST (test code = 2218) 7 U/L ALT (test code = 2219) 15 U/L Teodoro Echo BartleyCOMPREHENSIVE METABOLIC [id number] 00:00:00* Test Item Value Reference Range Interpretation Comme nts GLUCOSE (test code = 2217) 189 MG/DL BUN (test code = 2208) 9 MG/DL CREATININE (test code = 2214) 0.98 MG/DL eGFR AMER. (test cod e = 58068) 104 ML/MIN/1.73 eGFR NON- AMER. (test code = 27198) 90 ML/MIN/1.73 CALC BUN/CREAT (test code = 2235) 9 RATIO SODIUM (test code = 2231) 143 MEQ/L POTASSIUM (test code = 2228) 4.5 MEQ/L CHLORIDE (test code = 2215) 105 MEQ/L CARBON DIOXIDE (test code = 2206) 22 MEQ/L CALCIUM (test code = 2209) 9.1 MG/DL PROTEIN, TOTAL (test code = 2229) 6.6 G/DL ALBUMIN (test code = 2201) 4.3 G/DL CALC GLOBULIN (test code = 2240) 2.3 G/DL CALC A/G RATIO (test code = 2234) 1.9 RATIO BILIRUBIN, TOTAL (test code = 2207) 0.4 MG/DL ALKALINE PHOSPHATASE (test code = 2204) 111 U/L AST (test code = 2218) 7 U/L ALT (test code = 2219) 15 U/L Teodoro CantuCOMPREHENSIVE METABOLIC [id number] 00:00:00* Test Item Value Reference Range Interpretation Comme nts GLUCOSE (test code = 2217) 189 MG/DL BUN (test code = 2208) 9 MG/DL CREATININE (test code = 2214) 0.98 MG/DL eGFR AMER. (test cod e = 57130) 104 ML/MIN/1.73 eGFR NON- AMER. (test code = 77795) 90 ML/MIN/1.73 CALC BUN/CREAT (test code = 2235) 9 RATIO SODIUM (test code = 2231) 143 MEQ/L POTASSIUM (test code = 2228) 4.5 MEQ/L CHLORIDE (test code = 2215) 105 MEQ/L CARBON DIOXIDE (test code = 2206) 22 MEQ/L CALCIUM (test code = 2209) 9.1 MG/DL PROTEIN, TOTAL (test code = 2229) 6.6 G/DL ALBUMIN (test code = 2201) 4.3 G/DL CALC GLOBULIN (test code = 2240) 2.3 G/DL CALC A/G RATIO (test code = 2234) 1.9 RATIO BILIRUBIN, TOTAL (test code = 2207) 0.4 MG/DL ALKALINE PHOSPHATASE (test code = 2204) 111 U/L AST (test code = 2218) 7 U/L ALT (test code = 2219) 15 U/L Teodoro Dodge AustinTROPONIN [id number] 00:00:00* Test Item Value Reference Range Interpretation Comme nts TROPONIN T (test code = 4017) <0.010 UG/L Teodoro Dodge PepeH. PYLORI (BREATH)2021-08-24 00:00:00* Test Item Value Reference Range Interpretation Comme nts H. PYLORI (BREATH) (test cod e = 51124) POSITIVE Teodoro Dodge AustinTROPONIN [id number] 00:00:00* Test Item Value Reference Range Interpretation Comme nts TROPONIN T (test code = 4017) <0.010 UG/L H. PYLORI (BREATH)2021-08-24 00:00:00* Test Item Value Reference Range Interpretation Comme nts H. PYLORI (BREATH) (test cod e = 13500) POSITIVE TROPONIN [id number] 00:00:00* Test Item Value Reference Range Interpretation Comme nts TROPONIN T (test code = 4017) <0.010 UG/L H. PYLORI (BREATH)2021-08-24 00:00:00* Test Item Value Reference Range Interpretation Comme nts H. PYLORI (BREATH) (test cod e = 94678) POSITIVE TROPONIN [id number] 00:00:00* Test Item Value Reference Range Interpretation Comme nts TROPONIN T (test code = 4017) <0.010 UG/L Teodoro CantuTROPONIN [id number] 00:00:00* Test Item Value Reference Range Interpretation Comme nts TROPONIN T (test code = 4017) <0.010 UG/L TROPONIN [id number] 00:00:00* Test Item Value Reference Range Interpretation Comme nts TROPONIN T (test code = 4017) <0.010 UG/L Teodoro Dodge AustinH. PYLORI (BREATH)2021-08-24 00:00:00* Test Item Value Reference Range Interpretation Comme nts H. PYLORI (BREATH) (test cod e = 13834) POSITIVE TROPONIN [id number] 00:00:00* Test Item Value Reference Range Interpretation Comme nts TROPONIN T (test code = 4017) <0.010 UG/L H. PYLORI (BREATH)2021-08-24 00:00:00* Test Item Value Reference Range Interpretation Comme nts H. PYLORI (BREATH) (test cod e = 96455) POSITIVE TROPONIN [id number] 00:00:00* Test Item Value Reference Range Interpretation Comme nts TROPONIN T (test code = 4017) <0.010 UG/L H. PYLORI (BREATH)2021-08-24 00:00:00* Test Item Value Reference Range Interpretation Comme nts H. PYLORI (BREATH) (test cod e = 94727) POSITIVE TROPONIN [id number] 00:00:00* Test Item Value Reference Range Interpretation Comme nts TROPONIN T (test code = 4017) <0.010 UG/L H. PYLORI (BREATH)2021-08-24 00:00:00* Test Item Value Reference Range Interpretation Comme nts H. PYLORI (BREATH) (test cod e = 67948) POSITIVE H. PYLORI (BREATH)2021-08-24 00:00:00* Test Item Value Reference Range Interpretation Comme nts H. PYLORI (BREATH) (test cod e = 65034) POSITIVE Teodoro Dodge AustinTROPONIN [id number] 00:00:00* Test Item Value Reference Range Interpretation Comme nts TROPONIN T (test code = 4017) <0.010 UG/L Teodoro F AustinH. PYLORI (BREATH)2021-08-24 00:00:00* Test Item Value Reference Range Interpretation Comme nts H. PYLORI (BREATH) (test cod e = 74703) POSITIVE Teodoro F AustinH. PYLORI (BREATH)2021-08-24 00:00:00* Test Item Value Reference Range Interpretation Comme nts H. PYLORI (BREATH) (test cod e = 27071) POSITIVE Teodoro Dodge AustinTROPONIN [id number] 00:00:00* Test Item Value Reference Range Interpretation Comme nts TROPONIN T (test code = 4017) <0.010 UG/L Teodoro F AustinH. PYLORI (BREATH)2021-08-24 00:00:00* Test Item Value Reference Range Interpretation Comme nts H. PYLORI (BREATH) (test cod e = 71843) POSITIVE Teodoro F AustinTROPONIN [id number] 00:00:00* Test Item Value Reference Range Interpretation Comme nts TROPONIN T (test code = 4017) <0.010 UG/L Teodoro F AustinH. PYLORI (BREATH)2021-08-24 00:00:00* Test Item Value Reference Range Interpretation Comme nts H. PYLORI (BREATH) (test cod e = 20002) POSITIVE Teodoro F AustinTROPONIN [id number] 00:00:00* Test Item Value Reference Range Interpretation Comme nts TROPONIN T (test code = 4017) <0.010 UG/L Teodoro F AustinH. PYLORI (BREATH)2021-08-24 00:00:00* Test Item Value Reference Range Interpretation Comme nts H. PYLORI (BREATH) (test cod e = 64699) POSITIVE Teodoro Dodge AustinTROPONIN [id number] 00:00:00* Test Item Value Reference Range Interpretation Comme nts TROPONIN T (test code = 4017) <0.010 UG/L Teodoro Dodge AustinH. PYLORI (BREATH)2021-08-24 00:00:00* Test Item Value Reference Range Interpretation Comme nts H. PYLORI (BREATH) (test cod e = 37599) POSITIVE Teodoro Dodge AustinTROPONIN [id number] 00:00:00* Test Item Value Reference Range Interpretation Comme nts TROPONIN T (test code = 4017) <0.010 UG/L Teodoro Dodge AustinH. PYLORI (BREATH)2021-08-24 00:00:00* Test Item Value Reference Range Interpretation Comme nts H. PYLORI (BREATH) (test cod e = 92381) POSITIVE Teodoro Dodge AustinTROPONIN [id number] 00:00:00* Test Item Value Reference Range Interpretation Comme nts TROPONIN T (test code = 4017) <0.010 UG/L Teodoro Dodge AustinH. PYLORI (BREATH)2021-08-24 00:00:00* Test Item Value Reference Range Interpretation Comme nts H. PYLORI (BREATH) (test cod e = 16523) POSITIVE Teodoro Dodge AustinTROPONIN [id number] 00:00:00* Test Item Value Reference Range Interpretation Comme nts TROPONIN T (test code = 4017) <0.010 UG/L Teodoro Dodge AustinH. PYLORI (BREATH)2021-08-24 00:00:00* Test Item Value Reference Range Interpretation Comme nts H. PYLORI (BREATH) (test cod e = 48030) POSITIVE Teodoro Dodge [id number] 00:00:00* Test Item Value Reference Range Interpretation Comme nts TESTOSTERONE (test code = 2830) 473 NG/DL Teodoro Dodge [id number] 00:00:00* Test Item Value Reference Range Interpretation Comme nts TESTOSTERONE (test code = 2830) 473 NG/DL [id number] 00:00:00* Test Item Value Reference Range Interpretation Comme nts TESTOSTERONE (test code = 2830) 473 NG/DL [id number] 00:00:00* Test Item Value Reference Range Interpretation Comme nts TESTOSTERONE (test code = 2830) 473 NG/DL Teodoro Dodge [id number] 00:00:00* Test Item Value Reference Range Interpretation Comme nts TESTOSTERONE (test code = 2830) 473 NG/DL Teodoro [facility] [id number] 00:00:00* Test Item Value Reference Range Interpretation Comme nts TESTOSTERONE (test code = 2830) 473 NG/DL [id number] 00:00:00* Test Item Value Reference Range Interpretation Comme nts TESTOSTERONE (test code = 2830) 473 NG/DL [id number] 00:00:00* Test Item Value Reference Range Interpretation Comme nts TESTOSTERONE (test code = 2830) 473 NG/DL [id number] 00:00:00* Test Item Value Reference Range Interpretation Comme nts TESTOSTERONE (test code = 2830) 473 NG/DL [id number] 00:00:00* Test Item Value Reference Range Interpretation Comme nts TESTOSTERONE (test code = 2830) 473 NG/DL [facility] [id number] 00:00:00* Test Item Value Reference Range Interpretation Comme nts TESTOSTERONE (test code = 2830) 473 NG/DL [employer] [employer] [id number] 00:00:00* Test Item Value Reference Range Interpretation Comme nts TESTOSTERONE (test code = 2830) 473 NG/DL [employer] [employer] [id number] 00:00:00* Test Item Value Reference Range Interpretation Comme nts TESTOSTERONE (test code = 2830) 473 NG/DL [employer] [employer] [id number] 00:00:00* Test Item Value Reference Range Interpretation Comme nts TESTOSTERONE (test code = 2830) 473 NG/DL [employer] [employer] [id number] 00:00:00* Test Item Value Reference Range Interpretation Comme nts TESTOSTERONE (test code = 2830) 473 NG/DL [employer] [employer] [id number] 00:00:00* Test Item Value Reference Range Interpretation Comme nts TESTOSTERONE (test code = 2830) 473 NG/DL [employer] [employer] ZzlpnyOVGRIZWBICQO7569-12-04 00:00:00* Test Item Value Reference Range Interpretation Comme nts TESTOSTERONE (test code = 2830) 473 NG/DL Teodoro CantuPSA, [id number] 00:00:00* Test Item Value Reference Range Interpretation Comme nts PSA, TOTAL (test code = 2606) 0.14 NG/ML [employer] [employer] [id number] 00:00:00* Test Item Value Reference Range Interpretation Comme nts TESTOSTERONE (test code = 2830) 175 NG/DL Te[facility]oro CantuHEMOGLOBIN [id number] 00:00:00* Test Item Value Reference Range Interpretation Comme nts HEMOGLOBIN A1c (test code = 33990) 9.1 % Teodoro CantuPSA, [id number] 00:00:00* Test Item Value Reference Range Interpretation Comme nts PSA, TOTAL (test code = 2606) 0.14 NG/ML Te[facility]oro CantuPSA, [id number] 00:00:00* Test Item Value Reference Range Interpretation Comme nts PSA, TOTAL (test code = 2606) 0.14 NG/ML [id number] 00:00:00* Test Item Value Reference Range Interpretation Comme nts TESTOSTERONE (test code = 2830) 175 NG/DL HEMOGLOBIN [id number] 00:00:00* Test Item Value Reference Range Interpretation Comme nts HEMOGLOBIN A1c (test code = 71803) 9.1 % PSA, [id number] 00:00:00* Test Item Value Reference Range Interpretation Comme nts PSA, TOTAL (test code = 2606) 0.14 NG/ML [id number] 00:00:00* Test Item Value Reference Range Interpretation Comme nts TESTOSTERONE (test code = 2830) 175 NG/DL HEMOGLOBIN [id number] 00:00:00* Test Item Value Reference Range Interpretation Comme nts HEMOGLOBIN A1c (test code = 51537) 9.1 % PSA, [id number] 00:00:00* Test Item Value Reference Range Interpretation Comme nts PSA, TOTAL (test code = 2606) 0.14 NG/ML Teodoro CantuPSA, [id number] 00:00:00* Test Item Value Reference Range Interpretation Comme nts PSA, TOTAL (test code = 2606) 0.14 NG/ML [id number] 00:00:00* Test Item Value Reference Range Interpretation Comme nts TESTOSTERONE (test code = 2830) 175 NG/DL HEMOGLOBIN [id number] 00:00:00* Test Item Value Reference Range Interpretation Comme nts HEMOGLOBIN A1c (test code = 69496) 9.1 % PSA, [id number] 00:00:00* Test Item Value Reference Range Interpretation Comme nts PSA, TOTAL (test code = 2606) 0.14 NG/ML [id number] 00:00:00* Test Item Value Reference Range Interpretation Comme nts TESTOSTERONE (test code = 2830) 175 NG/DL HEMOGLOBIN [id number] 00:00:00* Test Item Value Reference Range Interpretation Comme nts HEMOGLOBIN A1c (test code = 39168) 9.1 % PSA, [id number] 00:00:00* Test Item Value Reference Range Interpretation Comme nts PSA, TOTAL (test code = 2606) 0.14 NG/ML [id number] 00:00:00* Test Item Value Reference Range Interpretation Comme nts TESTOSTERONE (test code = 2830) 175 NG/DL HEMOGLOBIN [id number] 00:00:00* Test Item Value Reference Range Interpretation Comme nts HEMOGLOBIN A1c (test code = 57314) 9.1 % PSA, [id number] 00:00:00* Test Item Value Reference Range Interpretation Comme nts PSA, TOTAL (test code = 2606) 0.14 NG/ML [id number] 00:00:00* Test Item Value Reference Range Interpretation Comme nts TESTOSTERONE (test code = 2830) 175 NG/DL HEMOGLOBIN [id number] 00:00:00* Test Item Value Reference Range Interpretation Comme nts HEMOGLOBIN A1c (test code = 70769) 9.1 % [id number] 00:00:00* Test Item Value Reference Range Interpretation Comme nts TESTOSTERONE (test code = 2830) 175 NG/DL Te[facility]oro CantuHEMOGLOBIN [id number] 00:00:00* Test Item Value Reference Range Interpretation Comme nts HEMOGLOBIN A1c (test code = 59970) 9.1 % [facility] AustinPSA, [id number] 00:00:00* Test Item Value Reference Range Interpretation Comme nts PSA, TOTAL (test code = 2606) 0.14 NG/ML [facility] [id number] 00:00:00* Test Item Value Reference Range Interpretation Comme nts TESTOSTERONE (test code = 2830) 175 NG/DL [facility] AustinHEMOGLOBIN [id number] 00:00:00* Test Item Value Reference Range Interpretation Comme nts HEMOGLOBIN A1c (test code = 99397) 9.1 % [employer] [id number] 00:00:00* Test Item Value Reference Range Interpretation Comme nts TESTOSTERONE (test code = 2830) 175 NG/DL Teodoro CantuPSA, [id number] 00:00:00* Test Item Value Reference Range Interpretation Comme nts PSA, TOTAL (test code = 2606) 0.14 NG/ML [employer] [id number] 00:00:00* Test Item Value Reference Range Interpretation Comme nts TESTOSTERONE (test code = 2830) 175 NG/DL [facility] [employer] AustinHEMOGLOBIN [id number] 00:00:00* Test Item Value Reference Range Interpretation Comme nts HEMOGLOBIN A1c (test code = 43115) 9.1 % [facility] AustinHEMOGLOBIN [id number] 00:00:00* Test Item Value Reference Range Interpretation Comme nts HEMOGLOBIN A1c (test code = 05406) 9.1 % [facility] AustinPSA, [id number] 00:00:00* Test Item Value Reference Range Interpretation Comme nts PSA, TOTAL (test code = 2606) 0.14 NG/ML [facility] [id number] 00:00:00* Test Item Value Reference Range Interpretation Comme nts TESTOSTERONE (test code = 2830) 175 NG/DL [facility] [employer] AustinHEMOGLOBIN [id number] 00:00:00* Test Item Value Reference Range Interpretation Comme nts HEMOGLOBIN A1c (test code = 88702) 9.1 % [facility] AustinPSA, [id number] 00:00:00* Test Item Value Reference Range Interpretation Comme nts PSA, TOTAL (test code = 2606) 0.14 NG/ML [employer] [id number] 00:00:00* Test Item Value Reference Range Interpretation Comme nts TESTOSTERONE (test code = 2830) 175 NG/DL [facility] [employer] AustinHEMOGLOBIN [id number] 00:00:00* Test Item Value Reference Range Interpretation Comme nts HEMOGLOBIN A1c (test code = 13311) 9.1 % Teodoro CantuPSA, [id number] 00:00:00* Test Item Value Reference Range Interpretation Comme nts PSA, TOTAL (test code = 2606) 0.14 NG/ML [employer] [id number] 00:00:00* Test Item Value Reference Range Interpretation Comme nts TESTOSTERONE (test code = 2830) 175 NG/DL Teodoro CantuHEMOGLOBIN [id number] 00:00:00* Test Item Value Reference Range Interpretation Comme nts HEMOGLOBIN A1c (test code = 77630) 9.1 % Teodoro CantuPSA, [id number] 00:00:00* Test Item Value Reference Range Interpretation Comme nts PSA, TOTAL (test code = 2606) 0.14 NG/ML [facility] [id number] 00:00:00* Test Item Value Reference Range Interpretation Comme nts TESTOSTERONE (test code = 2830) 175 NG/DL Te[facility]oro CantuHEMOGLOBIN [id number] 00:00:00* Test Item Value Reference Range Interpretation Comme nts HEMOGLOBIN A1c (test code = 46983) 9.1 % Teodoro CantuPSA, [id number] 00:00:00* Test Item Value Reference Range Interpretation Comme nts PSA, TOTAL (test code = 2606) 0.14 NG/ML [employer] [id number] 00:00:00* Test Item Value Reference Range Interpretation Comme nts TESTOSTERONE (test code = 2830) 175 NG/DL Teodoro CantuHEMOGLOBIN [id number] 00:00:00* Test Item Value Reference Range Interpretation Comme nts HEMOGLOBIN A1c (test code = 59444) 9.1 % Teodoro CantuPSA, [id number] 00:00:00* Test Item Value Reference Range Interpretation Comme nts PSA, TOTAL (test code = 2606) 0.14 NG/ML [facility] [id number] 00:00:00* Test Item Value Reference Range Interpretation Comme nts TESTOSTERONE (test code = 2830) 175 NG/DL Teodoro CantuHEMOGLOBIN [id number] 00:00:00* Test Item Value Reference Range Interpretation Comme nts HEMOGLOBIN A1c (test code = 50283) 9.1 % Te[facility] [id number] 00:00:00* Test Item Value Reference Range Interpretation Comme nts TESTOSTERONE (test code = 2830) 191 NG/DL Te[facility] CantuCOMPREHENSIVE METABOLIC [id number] 00:00:00* Test Item Value Reference Range Interpretation Comme nts GLUCOSE (test code = 2217) 290 MG/DL BUN (test code = 2208) 12 MG/DL CREATININE (test code = 2214) 0.63 MG/DL eGFR AMER. (test cod e = 92629) 133 ML/MIN/1.73 eGFR NON- AMER. (test code = 17904) 115 ML/MIN/1.73 CALC BUN/CREAT (test code = 2235) 19 RATIO SODIUM (test code = 2231) 136 MEQ/L POTASSIUM (test code = 2228) 4.5 MEQ/L CHLORIDE (test code = 2215) 102 MEQ/L CARBON DIOXIDE (test code = 2206) 22 MEQ/L CALCIUM (test code = 2209) 9.6 MG/DL PROTEIN, TOTAL (test code = 2229) 6.8 G/DL ALBUMIN (test code = 2201) 4.6 G/DL CALC GLOBULIN (test code = 2240) 2.2 G/DL CALC A/G RATIO (test code = 2234) 2.1 RATIO BILIRUBIN, TOTAL (test code = 2207) 0.3 MG/DL ALKALINE PHOSPHATASE (test code = 2204) 132 U/L AST (test code = 2218) 10 U/L ALT (test code = 2219) 18 U/L Teodoro CantuLIPID [id number] 00:00:00* Test Item Value Reference Range Interpretation Comme nts CHOLESTEROL (test code = 2210) 133 MG/DL TRIGLYCERIDES (test code = 2232) 183 MG/DL HDL CHOLESTEROL (test code = 2220) 39 MG/DL CALC LDL CHOL (test code = 2237) 68 MG/DL RISK RATIO LDL/HDL (test cod e = 2238) 1.74 RATIO [facility] [id number] 00:00:00* Test Item Value Reference Range Interpretation Comme nts TESTOSTERONE (test code = 2830) 191 NG/DL [employer] [employer] [id number] 00:00:00* Test Item Value Reference Range Interpretation Comme nts TESTOSTERONE (test code = 2830) 191 NG/DL COMPREHENSIVE METABOLIC [id number] 00:00:00* Test Item Value Reference Range Interpretation Comme nts GLUCOSE (test code = 2217) 290 MG/DL BUN (test code = 2208) 12 MG/DL CREATININE (test code = 2214) 0.63 MG/DL eGFR AMER. (test cod e = 17363) 133 ML/MIN/1.73 eGFR NON- AMER. (test code = 31606) 115 ML/MIN/1.73 CALC BUN/CREAT (test code = 2235) 19 RATIO SODIUM (test code = 2231) 136 MEQ/L POTASSIUM (test code = 2228) 4.5 MEQ/L CHLORIDE (test code = 2215) 102 MEQ/L CARBON DIOXIDE (test code = 2206) 22 MEQ/L CALCIUM (test code = 2209) 9.6 MG/DL PROTEIN, TOTAL (test code = 2229) 6.8 G/DL ALBUMIN (test code = 2201) 4.6 G/DL CALC GLOBULIN (test code = 2240) 2.2 G/DL CALC A/G RATIO (test code = 2234) 2.1 RATIO BILIRUBIN, TOTAL (test code = 2207) 0.3 MG/DL ALKALINE PHOSPHATASE (test code = 2204) 132 U/L AST (test code = 2218) 10 U/L ALT (test code = 2219) 18 U/L LIPID [id number] 00:00:00* Test Item Value Reference Range Interpretation Comme nts CHOLESTEROL (test code = 2210) 133 MG/DL TRIGLYCERIDES (test code = 2232) 183 MG/DL HDL CHOLESTEROL (test code = 2220) 39 MG/DL CALC LDL CHOL (test code = 2237) 68 MG/DL RISK RATIO LDL/HDL (test cod e = 2238) 1.74 RATIO [id number] 00:00:00* Test Item Value Reference Range Interpretation Comme nts TESTOSTERONE (test code = 2830) 191 NG/DL COMPREHENSIVE METABOLIC [id number] 00:00:00* Test Item Value Reference Range Interpretation Comme nts GLUCOSE (test code = 2217) 290 MG/DL BUN (test code = 2208) 12 MG/DL CREATININE (test code = 2214) 0.63 MG/DL eGFR AMER. (test cod e = 23263) 133 ML/MIN/1.73 eGFR NON- AMER. (test code = 69380) 115 ML/MIN/1.73 CALC BUN/CREAT (test code = 2235) 19 RATIO SODIUM (test code = 2231) 136 MEQ/L POTASSIUM (test code = 2228) 4.5 MEQ/L CHLORIDE (test code = 2215) 102 MEQ/L CARBON DIOXIDE (test code = 2206) 22 MEQ/L CALCIUM (test code = 2209) 9.6 MG/DL PROTEIN, TOTAL (test code = 2229) 6.8 G/DL ALBUMIN (test code = 2201) 4.6 G/DL CALC GLOBULIN (test code = 2240) 2.2 G/DL CALC A/G RATIO (test code = 2234) 2.1 RATIO BILIRUBIN, TOTAL (test code = 2207) 0.3 MG/DL ALKALINE PHOSPHATASE (test code = 2204) 132 U/L AST (test code = 2218) 10 U/L ALT (test code = 2219) 18 U/L LIPID [id number] 00:00:00* Test Item Value Reference Range Interpretation Comme nts CHOLESTEROL (test code = 2210) 133 MG/DL TRIGLYCERIDES (test code = 2232) 183 MG/DL HDL CHOLESTEROL (test code = 2220) 39 MG/DL CALC LDL CHOL (test code = 2237) 68 MG/DL RISK RATIO LDL/HDL (test cod e = 2238) 1.74 RATIO [id number] 00:00:00* Test Item Value Reference Range Interpretation Comme nts TESTOSTERONE (test code = 2830) 191 NG/DL COMPREHENSIVE METABOLIC [id number] 00:00:00* Test Item Value Reference Range Interpretation Comme nts GLUCOSE (test code = 2217) 290 MG/DL BUN (test code = 2208) 12 MG/DL CREATININE (test code = 2214) 0.63 MG/DL eGFR AMER. (test cod e = 35718) 133 ML/MIN/1.73 eGFR NON- AMER. (test code = 66885) 115 ML/MIN/1.73 CALC BUN/CREAT (test code = 2235) 19 RATIO SODIUM (test code = 2231) 136 MEQ/L POTASSIUM (test code = 2228) 4.5 MEQ/L CHLORIDE (test code = 2215) 102 MEQ/L CARBON DIOXIDE (test code = 2206) 22 MEQ/L CALCIUM (test code = 2209) 9.6 MG/DL PROTEIN, TOTAL (test code = 2229) 6.8 G/DL ALBUMIN (test code = 2201) 4.6 G/DL CALC GLOBULIN (test code = 2240) 2.2 G/DL CALC A/G RATIO (test code = 2234) 2.1 RATIO BILIRUBIN, TOTAL (test code = 2207) 0.3 MG/DL ALKALINE PHOSPHATASE (test code = 2204) 132 U/L AST (test code = 2218) 10 U/L ALT (test code = 2219) 18 U/L [id number] 00:00:00* Test Item Value Reference Range Interpretation Comme nts TESTOSTERONE (test code = 2830) 191 NG/DL Teodoro F AustinLIPID [id number] 00:00:00* Test Item Value Reference Range Interpretation Comme nts CHOLESTEROL (test code = 2210) 133 MG/DL TRIGLYCERIDES (test code = 2232) 183 MG/DL HDL CHOLESTEROL (test code = 2220) 39 MG/DL CALC LDL CHOL (test code = 2237) 68 MG/DL RISK RATIO LDL/HDL (test cod e = 2238) 1.74 RATIO [id number] 00:00:00* Test Item Value Reference Range Interpretation Comme nts TESTOSTERONE (test code = 2830) 191 NG/DL COMPREHENSIVE METABOLIC [id number] 00:00:00* Test Item Value Reference Range Interpretation Comme nts GLUCOSE (test code = 2217) 290 MG/DL BUN (test code = 2208) 12 MG/DL CREATININE (test code = 2214) 0.63 MG/DL eGFR AMER. (test cod e = 57937) 133 ML/MIN/1.73 eGFR NON- AMER. (test code = 57789) 115 ML/MIN/1.73 CALC BUN/CREAT (test code = 2235) 19 RATIO SODIUM (test code = 2231) 136 MEQ/L POTASSIUM (test code = 2228) 4.5 MEQ/L CHLORIDE (test code = 2215) 102 MEQ/L CARBON DIOXIDE (test code = 2206) 22 MEQ/L CALCIUM (test code = 2209) 9.6 MG/DL PROTEIN, TOTAL (test code = 2229) 6.8 G/DL ALBUMIN (test code = 2201) 4.6 G/DL CALC GLOBULIN (test code = 2240) 2.2 G/DL CALC A/G RATIO (test code = 2234) 2.1 RATIO BILIRUBIN, TOTAL (test code = 2207) 0.3 MG/DL ALKALINE PHOSPHATASE (test code = 2204) 132 U/L AST (test code = 221) 10 U/L ALT (test code = 2219) 18 U/L LIPID [id number] 00:00:00* Test Item Value Reference Range Interpretation Comme nts CHOLESTEROL (test code = 2210) 133 MG/DL TRIGLYCERIDES (test code = 2232) 183 MG/DL HDL CHOLESTEROL (test code = 2220) 39 MG/DL CALC LDL CHOL (test code = 2237) 68 MG/DL RISK RATIO LDL/HDL (test cod e = 2238) 1.74 RATIO [id number] 00:00:00* Test Item Value Reference Range Interpretation Comme nts TESTOSTERONE (test code = 2830) 191 NG/DL COMPREHENSIVE METABOLIC [id number] 00:00:00* Test Item Value Reference Range Interpretation Comme nts GLUCOSE (test code = 2217) 290 MG/DL BUN (test code = 8) 12 MG/DL CREATININE (test code = 2214) 0.63 MG/DL eGFR AMER. (test cod e = 71762) 133 ML/MIN/1.73 eGFR NON- AMER. (test code = 51349) 115 ML/MIN/1.73 CALC BUN/CREAT (test code = 2235) 19 RATIO SODIUM (test code = 2231) 136 MEQ/L POTASSIUM (test code = 2228) 4.5 MEQ/L CHLORIDE (test code = 2215) 102 MEQ/L CARBON DIOXIDE (test code = 2206) 22 MEQ/L CALCIUM (test code = 2209) 9.6 MG/DL PROTEIN, TOTAL (test code = 2229) 6.8 G/DL ALBUMIN (test code = 2201) 4.6 G/DL CALC GLOBULIN (test code = 2240) 2.2 G/DL CALC A/G RATIO (test code = 2234) 2.1 RATIO BILIRUBIN, TOTAL (test code = 2207) 0.3 MG/DL ALKALINE PHOSPHATASE (test code = 2204) 132 U/L AST (test code = 2218) 10 U/L ALT (test code = 2219) 18 U/L LIPID [id number] 00:00:00* Test Item Value Reference Range Interpretation Comme nts CHOLESTEROL (test code = 2210) 133 MG/DL TRIGLYCERIDES (test code = 2232) 183 MG/DL HDL CHOLESTEROL (test code = 2220) 39 MG/DL CALC LDL CHOL (test code = 2237) 68 MG/DL RISK RATIO LDL/HDL (test cod e = 2238) 1.74 RATIO [id number] 00:00:00* Test Item Value Reference Range Interpretation Comme nts TESTOSTERONE (test code = 2830) 191 NG/DL COMPREHENSIVE METABOLIC [id number] 00:00:00* Test Item Value Reference Range Interpretation Comme nts GLUCOSE (test code = 2217) 290 MG/DL BUN (test code = 2208) 12 MG/DL CREATININE (test code = 2214) 0.63 MG/DL eGFR AMER. (test cod e = 34287) 133 ML/MIN/1.73 eGFR NON- AMER. (test code = 11713) 115 ML/MIN/1.73 CALC BUN/CREAT (test code = 2235) 19 RATIO SODIUM (test code = 2231) 136 MEQ/L POTASSIUM (test code = 2228) 4.5 MEQ/L CHLORIDE (test code = 2215) 102 MEQ/L CARBON DIOXIDE (test code = 2206) 22 MEQ/L CALCIUM (test code = 2209) 9.6 MG/DL PROTEIN, TOTAL (test code = 2229) 6.8 G/DL ALBUMIN (test code = 2201) 4.6 G/DL CALC GLOBULIN (test code = 2240) 2.2 G/DL CALC A/G RATIO (test code = 2234) 2.1 RATIO BILIRUBIN, TOTAL (test code = 2207) 0.3 MG/DL ALKALINE PHOSPHATASE (test code = 2204) 132 U/L AST (test code = 2218) 10 U/L ALT (test code = 2219) 18 U/L LIPID [id number] 00:00:00* Test Item Value Reference Range Interpretation Comme nts CHOLESTEROL (test code = 2210) 133 MG/DL TRIGLYCERIDES (test code = 2232) 183 MG/DL HDL CHOLESTEROL (test code = 2220) 39 MG/DL CALC LDL CHOL (test code = 2237) 68 MG/DL RISK RATIO LDL/HDL (test cod e = 2238) 1.74 RATIO COMPREHENSIVE METABOLIC [id number] 00:00:00* Test Item Value Reference Range Interpretation Comme nts GLUCOSE (test code = 2217) 290 MG/DL BUN (test code = 2208) 12 MG/DL CREATININE (test code = 2214) 0.63 MG/DL eGFR AMER. (test cod e = 78048) 133 ML/MIN/1.73 eGFR NON- AMER. (test code = 27330) 115 ML/MIN/1.73 CALC BUN/CREAT (test code = 2235) 19 RATIO SODIUM (test code = 2231) 136 MEQ/L POTASSIUM (test code = 2228) 4.5 MEQ/L CHLORIDE (test code = 2215) 102 MEQ/L CARBON DIOXIDE (test code = 2206) 22 MEQ/L CALCIUM (test code = 2209) 9.6 MG/DL PROTEIN, TOTAL (test code = 2229) 6.8 G/DL ALBUMIN (test code = 2201) 4.6 G/DL CALC GLOBULIN (test code = 2240) 2.2 G/DL CALC A/G RATIO (test code = 2234) 2.1 RATIO BILIRUBIN, TOTAL (test code = 2207) 0.3 MG/DL ALKALINE PHOSPHATASE (test code = 2204) 132 U/L AST (test code = 2218) 10 U/L ALT (test code = 2219) 18 U/L Teodoro F AustinLIPID [id number] 00:00:00* Test Item Value Reference Range Interpretation Comme nts CHOLESTEROL (test code = 2210) 133 MG/DL TRIGLYCERIDES (test code = 2232) 183 MG/DL HDL CHOLESTEROL (test code = 2220) 39 MG/DL CALC LDL CHOL (test code = 2237) 68 MG/DL RISK RATIO LDL/HDL (test cod e = 2238) 1.74 RATIO Teodoro [id number] 00:00:00* Test Item Value Reference Range Interpretation Comme nts TESTOSTERONE (test code = 2830) 191 NG/DL Teodoro CantuCOMPREHENSIVE METABOLIC [id number] 00:00:00* Test Item Value Reference Range Interpretation Comme nts GLUCOSE (test code = 2217) 290 MG/DL BUN (test code = 2208) 12 MG/DL CREATININE (test code = 2214) 0.63 MG/DL eGFR AMER. (test cod e = 61354) 133 ML/MIN/1.73 eGFR NON- AMER. (test code = 65068) 115 ML/MIN/1.73 CALC BUN/CREAT (test code = 2235) 19 RATIO SODIUM (test code = 2231) 136 MEQ/L POTASSIUM (test code = 2228) 4.5 MEQ/L CHLORIDE (test code = 2215) 102 MEQ/L CARBON DIOXIDE (test code = 2206) 22 MEQ/L CALCIUM (test code = 2209) 9.6 MG/DL PROTEIN, TOTAL (test code = 2229) 6.8 G/DL ALBUMIN (test code = 2201) 4.6 G/DL CALC GLOBULIN (test code = 2240) 2.2 G/DL CALC A/G RATIO (test code = 2234) 2.1 RATIO BILIRUBIN, TOTAL (test code = 2207) 0.3 MG/DL ALKALINE PHOSPHATASE (test code = 2204) 132 U/L AST (test code = 2218) 10 U/L ALT (test code = 2219) 18 U/L Teodoro Dodge AustinLIPID [id number] 00:00:00* Test Item Value Reference Range Interpretation Comme nts CHOLESTEROL (test code = 2210) 133 MG/DL TRIGLYCERIDES (test code = 2232) 183 MG/DL HDL CHOLESTEROL (test code = 2220) 39 MG/DL CALC LDL CHOL (test code = 2237) 68 MG/DL RISK RATIO LDL/HDL (test cod e = 2238) 1.74 RATIO Teodoro CantuCOMPREHENSIVE METABOLIC [id number] 00:00:00* Test Item Value Reference Range Interpretation Comme nts GLUCOSE (test code = 2217) 290 MG/DL BUN (test code = 2208) 12 MG/DL CREATININE (test code = 2214) 0.63 MG/DL eGFR AMER. (test cod e = 86451) 133 ML/MIN/1.73 eGFR NON- AMER. (test code = 92529) 115 ML/MIN/1.73 CALC BUN/CREAT (test code = 2235) 19 RATIO SODIUM (test code = 2231) 136 MEQ/L POTASSIUM (test code = 2228) 4.5 MEQ/L CHLORIDE (test code = 2215) 102 MEQ/L CARBON DIOXIDE (test code = 2206) 22 MEQ/L CALCIUM (test code = 2209) 9.6 MG/DL PROTEIN, TOTAL (test code = 222) 6.8 G/DL ALBUMIN (test code = 2201) 4.6 G/DL CALC GLOBULIN (test code = 2240) 2.2 G/DL CALC A/G RATIO (test code = 2234) 2.1 RATIO BILIRUBIN, TOTAL (test code = 220) 0.3 MG/DL ALKALINE PHOSPHATASE (test code = 2204) 132 U/L AST (test code = 2218) 10 U/L ALT (test code = 2219) 18 U/L Teodoro [id number] 00:00:00* Test Item Value Reference Range Interpretation Comme nts TESTOSTERONE (test code = 2830) 191 NG/DL Teodoro CantuLIPID [id number] 00:00:00* Test Item Value Reference Range Interpretation Comme nts CHOLESTEROL (test code = 2210) 133 MG/DL TRIGLYCERIDES (test code = 2232) 183 MG/DL HDL CHOLESTEROL (test code = 2220) 39 MG/DL CALC LDL CHOL (test code = 2237) 68 MG/DL RISK RATIO LDL/HDL (test cod e = 2238) 1.74 RATIO Teodoro CantuCOMPREHENSIVE METABOLIC [id number] 00:00:00* Test Item Value Reference Range Interpretation Comme nts GLUCOSE (test code = 2217) 290 MG/DL BUN (test code = 2208) 12 MG/DL CREATININE (test code = 2214) 0.63 MG/DL eGFR AMER. (test cod e = 98260) 133 ML/MIN/1.73 eGFR NON- AMER. (test code = 72378) 115 ML/MIN/1.73 CALC BUN/CREAT (test code = 2235) 19 RATIO SODIUM (test code = 2231) 136 MEQ/L POTASSIUM (test code = 2228) 4.5 MEQ/L CHLORIDE (test code = 2215) 102 MEQ/L CARBON DIOXIDE (test code = 2206) 22 MEQ/L CALCIUM (test code = 2209) 9.6 MG/DL PROTEIN, TOTAL (test code = 2229) 6.8 G/DL ALBUMIN (test code = 2201) 4.6 G/DL CALC GLOBULIN (test code = 2240) 2.2 G/DL CALC A/G RATIO (test code = 2234) 2.1 RATIO BILIRUBIN, TOTAL (test code = 2207) 0.3 MG/DL ALKALINE PHOSPHATASE (test code = 2204) 132 U/L AST (test code = 2218) 10 U/L ALT (test code = 2219) 18 U/L Teodoro Dodge AustinLIPID [id number] 00:00:00* Test Item Value Reference Range Interpretation Comme nts CHOLESTEROL (test code = 2210) 133 MG/DL TRIGLYCERIDES (test code = 2232) 183 MG/DL HDL CHOLESTEROL (test code = 2220) 39 MG/DL CALC LDL CHOL (test code = 2237) 68 MG/DL RISK RATIO LDL/HDL (test cod e = 2238) 1.74 RATIO Teodoro [id number] 00:00:00* Test Item Value Reference Range Interpretation Comme nts TESTOSTERONE (test code = 2830) 191 NG/DL Teodoro CantuCOMPREHENSIVE METABOLIC [id number] 00:00:00* Test Item Value Reference Range Interpretation Comme nts GLUCOSE (test code = 2217) 290 MG/DL BUN (test code = 2208) 12 MG/DL CREATININE (test code = 2214) 0.63 MG/DL eGFR AMER. (test cod e = 01559) 133 ML/MIN/1.73 eGFR NON- AMER. (test code = 53574) 115 ML/MIN/1.73 CALC BUN/CREAT (test code = 2235) 19 RATIO SODIUM (test code = 2231) 136 MEQ/L POTASSIUM (test code = 2228) 4.5 MEQ/L CHLORIDE (test code = 2215) 102 MEQ/L CARBON DIOXIDE (test code = 2206) 22 MEQ/L CALCIUM (test code = 2209) 9.6 MG/DL PROTEIN, TOTAL (test code = 2229) 6.8 G/DL ALBUMIN (test code = 2201) 4.6 G/DL CALC GLOBULIN (test code = 2240) 2.2 G/DL CALC A/G RATIO (test code = 2234) 2.1 RATIO BILIRUBIN, TOTAL (test code = 2207) 0.3 MG/DL ALKALINE PHOSPHATASE (test code = 2204) 132 U/L AST (test code = 2218) 10 U/L ALT (test code = 2219) 18 U/L Teodoro CantuLIPID [id number] 00:00:00* Test Item Value Reference Range Interpretation Comme nts CHOLESTEROL (test code = 2210) 133 MG/DL TRIGLYCERIDES (test code = 2232) 183 MG/DL HDL CHOLESTEROL (test code = 2220) 39 MG/DL CALC LDL CHOL (test code = 2237) 68 MG/DL RISK RATIO LDL/HDL (test cod e = 2238) 1.74 RATIO Teodoro [id number] 00:00:00* Test Item Value Reference Range Interpretation Comme nts TESTOSTERONE (test code = 2830) 191 NG/DL Teodoro CantuCOMPREHENSIVE METABOLIC [id number] 00:00:00* Test Item Value Reference Range Interpretation Comme nts GLUCOSE (test code = 2217) 290 MG/DL BUN (test code = 2208) 12 MG/DL CREATININE (test code = 2214) 0.63 MG/DL eGFR AMER. (test cod e = 90162) 133 ML/MIN/1.73 eGFR NON- AMER. (test code = 89983) 115 ML/MIN/1.73 CALC BUN/CREAT (test code = 2235) 19 RATIO SODIUM (test code = 2231) 136 MEQ/L POTASSIUM (test code = 2228) 4.5 MEQ/L CHLORIDE (test code = 2215) 102 MEQ/L CARBON DIOXIDE (test code = 2206) 22 MEQ/L CALCIUM (test code = 2209) 9.6 MG/DL PROTEIN, TOTAL (test code = 2229) 6.8 G/DL ALBUMIN (test code = 2201) 4.6 G/DL CALC GLOBULIN (test code = 2240) 2.2 G/DL CALC A/G RATIO (test code = 2234) 2.1 RATIO BILIRUBIN, TOTAL (test code = 2207) 0.3 MG/DL ALKALINE PHOSPHATASE (test code = 2204) 132 U/L AST (test code = 2218) 10 U/L ALT (test code = 2219) 18 U/L Teodoro Dodge AustinLIPID [id number] 00:00:00* Test Item Value Reference Range Interpretation Comme nts CHOLESTEROL (test code = 2210) 133 MG/DL TRIGLYCERIDES (test code = 2232) 183 MG/DL HDL CHOLESTEROL (test code = 2220) 39 MG/DL CALC LDL CHOL (test code = 2237) 68 MG/DL RISK RATIO LDL/HDL (test cod e = 223) 1.74 RATIO Teodoro [id number] 00:00:00* Test Item Value Reference Range Interpretation Comme nts TESTOSTERONE (test code = 2830) 191 NG/DL Teodoro CantuCOMPREHENSIVE METABOLIC [id number] 00:00:00* Test Item Value Reference Range Interpretation Comme nts GLUCOSE (test code = 2217) 290 MG/DL BUN (test code = 8) 12 MG/DL CREATININE (test code = 2214) 0.63 MG/DL eGFR AMER. (test cod e = 42752) 133 ML/MIN/1.73 eGFR NON- AMER. (test code = 43056) 115 ML/MIN/1.73 CALC BUN/CREAT (test code = 2235) 19 RATIO SODIUM (test code = 2231) 136 MEQ/L POTASSIUM (test code = 2228) 4.5 MEQ/L CHLORIDE (test code = 2215) 102 MEQ/L CARBON DIOXIDE (test code = 2206) 22 MEQ/L CALCIUM (test code = 2209) 9.6 MG/DL PROTEIN, TOTAL (test code = 2229) 6.8 G/DL ALBUMIN (test code = 2201) 4.6 G/DL CALC GLOBULIN (test code = 2240) 2.2 G/DL CALC A/G RATIO (test code = 2234) 2.1 RATIO BILIRUBIN, TOTAL (test code = 2207) 0.3 MG/DL ALKALINE PHOSPHATASE (test code = 2204) 132 U/L AST (test code = 2218) 10 U/L ALT (test code = 2219) 18 U/L Teodoro Dodge AustinLIPID [id number] 00:00:00* Test Item Value Reference Range Interpretation Comme nts CHOLESTEROL (test code = 2210) 133 MG/DL TRIGLYCERIDES (test code = 2232) 183 MG/DL HDL CHOLESTEROL (test code = 2220) 39 MG/DL CALC LDL CHOL (test code = 2237) 68 MG/DL RISK RATIO LDL/HDL (test cod e = 2238) 1.74 RATIO Teodoro [id number] 00:00:00* Test Item Value Reference Range Interpretation Comme nts TESTOSTERONE (test code = 2830) 191 NG/DL Teodoro CantuCOMPREHENSIVE METABOLIC [id number] 00:00:00* Test Item Value Reference Range Interpretation Comme nts GLUCOSE (test code = 2217) 290 MG/DL BUN (test code = 2208) 12 MG/DL CREATININE (test code = 2214) 0.63 MG/DL eGFR AMER. (test cod e = 01335) 133 ML/MIN/1.73 eGFR NON- AMER. (test code = 50819) 115 ML/MIN/1.73 CALC BUN/CREAT (test code = 2235) 19 RATIO SODIUM (test code = 2231) 136 MEQ/L POTASSIUM (test code = 2228) 4.5 MEQ/L CHLORIDE (test code = 2215) 102 MEQ/L CARBON DIOXIDE (test code = 2206) 22 MEQ/L CALCIUM (test code = 2209) 9.6 MG/DL PROTEIN, TOTAL (test code = 2229) 6.8 G/DL ALBUMIN (test code = 2201) 4.6 G/DL CALC GLOBULIN (test code = 2240) 2.2 G/DL CALC A/G RATIO (test code = 2234) 2.1 RATIO BILIRUBIN, TOTAL (test code = 2207) 0.3 MG/DL ALKALINE PHOSPHATASE (test code = 2204) 132 U/L AST (test code = 2218) 10 U/L ALT (test code = 2219) 18 U/L Teodoro CantuLIPID [id number] 00:00:00* Test Item Value Reference Range Interpretation Comme nts CHOLESTEROL (test code = 2210) 133 MG/DL TRIGLYCERIDES (test code = 2232) 183 MG/DL HDL CHOLESTEROL (test code = 2220) 39 MG/DL CALC LDL CHOL (test code = 2237) 68 MG/DL RISK RATIO LDL/HDL (test cod e = 2238) 1.74 RATIO Teodoro [id number] 00:00:00* Test Item Value Reference Range Interpretation Comme nts TESTOSTERONE (test code = 2830) 191 NG/DL Teodoro CantuCOMPREHENSIVE METABOLIC [id number] 00:00:00* Test Item Value Reference Range Interpretation Comme nts GLUCOSE (test code = 2217) 290 MG/DL BUN (test code = 2208) 12 MG/DL CREATININE (test code = 2214) 0.63 MG/DL eGFR AMER. (test cod e = 22613) 133 ML/MIN/1.73 eGFR NON- AMER. (test code = 05229) 115 ML/MIN/1.73 CALC BUN/CREAT (test code = 2235) 19 RATIO SODIUM (test code = 2231) 136 MEQ/L POTASSIUM (test code = 2228) 4.5 MEQ/L CHLORIDE (test code = 2215) 102 MEQ/L CARBON DIOXIDE (test code = 2206) 22 MEQ/L CALCIUM (test code = 2209) 9.6 MG/DL PROTEIN, TOTAL (test code = 2229) 6.8 G/DL ALBUMIN (test code = 2201) 4.6 G/DL CALC GLOBULIN (test code = 2240) 2.2 G/DL CALC A/G RATIO (test code = 2234) 2.1 RATIO BILIRUBIN, TOTAL (test code = 2207) 0.3 MG/DL ALKALINE PHOSPHATASE (test code = 2204) 132 U/L AST (test code = 2218) 10 U/L ALT (test code = 2219) 18 U/L Teodoro CantuLIPID [id number] 00:00:00* Test Item Value Reference Range Interpretation Comme nts CHOLESTEROL (test code = 2210) 133 MG/DL TRIGLYCERIDES (test code = 2232) 183 MG/DL HDL CHOLESTEROL (test code = 2220) 39 MG/DL CALC LDL CHOL (test code = 2237) 68 MG/DL RISK RATIO LDL/HDL (test cod e = 2238) 1.74 RATIO Teodoro [id number] 00:00:00* Test Item Value Reference Range Interpretation Comme nts TESTOSTERONE (test code = 2830) 191 NG/DL Teodoro CantuCOMPREHENSIVE METABOLIC [id number] 00:00:00* Test Item Value Reference Range Interpretation Comme nts GLUCOSE (test code = 2217) 290 MG/DL BUN (test code = 2208) 12 MG/DL CREATININE (test code = 2214) 0.63 MG/DL eGFR AMER. (test cod e = 44609) 133 ML/MIN/1.73 eGFR NON- AMER. (test code = 07191) 115 ML/MIN/1.73 CALC BUN/CREAT (test code = 2235) 19 RATIO SODIUM (test code = 2231) 136 MEQ/L POTASSIUM (test code = 2228) 4.5 MEQ/L CHLORIDE (test code = 2215) 102 MEQ/L CARBON DIOXIDE (test code = 2206) 22 MEQ/L CALCIUM (test code = 2209) 9.6 MG/DL PROTEIN, TOTAL (test code = 2229) 6.8 G/DL ALBUMIN (test code = 2201) 4.6 G/DL CALC GLOBULIN (test code = 2240) 2.2 G/DL CALC A/G RATIO (test code = 2234) 2.1 RATIO BILIRUBIN, TOTAL (test code = 2207) 0.3 MG/DL ALKALINE PHOSPHATASE (test code = 2204) 132 U/L AST (test code = 2218) 10 U/L ALT (test code = 2219) 18 U/L Teodoro CantuLIPID [id number] 00:00:00* Test Item Value Reference Range Interpretation Comme nts CHOLESTEROL (test code = 2210) 133 MG/DL TRIGLYCERIDES (test code = 2232) 183 MG/DL HDL CHOLESTEROL (test code = 2220) 39 MG/DL CALC LDL CHOL (test code = 2237) 68 MG/DL RISK RATIO LDL/HDL (test cod e = 2238) 1.74 RATIO Teodoro CantuHEMOGLOBIN [id number] 00:00:00* Test Item Value Reference Range Interpretation Comme nts HEMOGLOBIN A1c (test code = 63020) 9.9 % Teodoro F AustinHEMOGLOBIN [id number] 00:00:00* Test Item Value Reference Range Interpretation Comme nts HEMOGLOBIN A1c (test code = 61851) 9.9 % Teodoro Dodge AustinHEMOGLOBIN [id number] 00:00:00* Test Item Value Reference Range Interpretation Comme nts HEMOGLOBIN A1c (test code = 90548) 9.9 % HEMOGLOBIN [id number] 00:00:00* Test Item Value Reference Range Interpretation Comme nts HEMOGLOBIN A1c (test code = 53809) 9.9 % HEMOGLOBIN [id number] 00:00:00* Test Item Value Reference Range Interpretation Comme nts HEMOGLOBIN A1c (test code = 10613) 9.9 % HEMOGLOBIN [id number] 00:00:00* Test Item Value Reference Range Interpretation Comme nts HEMOGLOBIN A1c (test code = 50180) 9.9 % Teodoro Dodge AustinHEMOGLOBIN [id number] 00:00:00* Test Item Value Reference Range Interpretation Comme nts HEMOGLOBIN A1c (test code = 41233) 9.9 % HEMOGLOBIN [id number] 00:00:00* Test Item Value Reference Range Interpretation Comme nts HEMOGLOBIN A1c (test code = 89581) 9.9 % HEMOGLOBIN [id number] 00:00:00* Test Item Value Reference Range Interpretation Comme nts HEMOGLOBIN A1c (test code = 66154) 9.9 % HEMOGLOBIN [id number] 00:00:00* Test Item Value Reference Range Interpretation Comme nts HEMOGLOBIN A1c (test code = 86409) 9.9 % Teodoro Dodge AustinHEMOGLOBIN [id number] 00:00:00* Test Item Value Reference Range Interpretation Comme nts HEMOGLOBIN A1c (test code = 74010) 9.9 % Teodoro Dodge AustinHEMOGLOBIN [id number] 00:00:00* Test Item Value Reference Range Interpretation Comme nts HEMOGLOBIN A1c (test code = 48666) 9.9 % Teodoro Dodge AustinHEMOGLOBIN [id number] 00:00:00* Test Item Value Reference Range Interpretation Comme nts HEMOGLOBIN A1c (test code = 73458) 9.9 % Teodoro Dodge AustinHEMOGLOBIN [id number] 00:00:00* Test Item Value Reference Range Interpretation Comme nts HEMOGLOBIN A1c (test code = 89512) 9.9 % Teodoro F AustinHEMOGLOBIN [id number] 00:00:00* Test Item Value Reference Range Interpretation Comme nts HEMOGLOBIN A1c (test code = 54865) 9.9 % Teodoro Dodge AustinHEMOGLOBIN [id number] 00:00:00* Test Item Value Reference Range Interpretation Comme nts HEMOGLOBIN A1c (test code = 82135) 9.9 % Teodoro Dodge AustinHEMOGLOBIN [id number] 00:00:00* Test Item Value Reference Range Interpretation Comme nts HEMOGLOBIN A1c (test code = 49496) 9.9 % Teodoro Dodge AustinMICROALBUMIN/CREATININE, RANDOM AND [id number] 00:00:00* Test Item Value Reference Range Interpretation Comme nts CREATININE, URINE, CONC. (te st code = 2072) 33.3 MG/DL ALBUMIN, URINE, RANDOM (test code = 43643) 0.5 MG/DL CALC ALBUMIN/CREAT, RND (eden t code = 09358) 15 MG/G Teodoro [id number] 00:00:00* Test Item Value Reference Range Interpretation Comme nts TSH, THIRD GENERATION (test code = 2821) 0.648 UIU/ML Teodoro CantuPSA, [id number] 00:00:00* Test Item Value Reference Range Interpretation Comme nts PSA, TOTAL (test code = 2606) 0.12 NG/ML Teodoro CantuCBC W/AUTO [id number] 00:00:00* Test Item Value Reference Range Interpretation Comme nts WBC (test code = 1001) 5.7 K/UL [...] COUNT (test code = 1015) 174 K/UL Teodoro CantuHEMOGLOBIN [id number] 00:00:00* Test Item Value Reference Range Interpretation Comme bria HEMOGLOBIN A1c (test code = 32736) 12.4 % Teodoro CantuLIPID [id number] 00:00:00* Test Item Value Reference Range Interpretation Comme nts CHOLESTEROL (test code = 2210) 221 MG/DL TRIGLYCERIDES (test code = 2232) 935 MG/DL HDL CHOLESTEROL (test code = 2220) 31 MG/DL CALC LDL CHOL (test code = 2237) (NOTE) MG/DL RISK RATIO LDL/HDL (test cod e = 2238) (NOTE) RATIO Teodoro CantuCOMPREHENSIVE METABOLIC [id number] 00:00:00* Test Item Value Reference Range Interpretation Comme nts GLUCOSE (test code = 2217) 311 MG/DL BUN (test code = 2208) 11 MG/DL CREATININE (test code = 2214) 0.58 MG/DL eGFR AMER. (test cod e = 27937) 139 ML/MIN/1.73 eGFR NON- AMER. (test code = 50344) 120 ML/MIN/1.73 CALC BUN/CREAT (test code = 2235) 19 RATIO SODIUM (test code = 2231) 136 MEQ/L POTASSIUM (test code = 2228) 3.9 MEQ/L CHLORIDE (test code = 2215) 101 MEQ/L CARBON DIOXIDE (test code = 2206) 21 MEQ/L CALCIUM (test code = 2209) 9.2 MG/DL PROTEIN, TOTAL (test code = 2229) 6.9 G/DL ALBUMIN (test code = 2201) 4.5 G/DL CALC GLOBULIN (test code = 2240) 2.4 G/DL CALC A/G RATIO (test code = 2234) 1.9 RATIO BILIRUBIN, TOTAL (test code = 2207) 0.6 MG/DL ALKALINE PHOSPHATASE (test code = 2204) 146 U/L AST (test code = 2218) 13 U/L ALT (test code = 2219) 20 U/L Teodoro CantuMICROALBUMIN/CREATININE, RANDOM AND [id number] 00:00:00* Test Item Value Reference Range Interpretation Comme nts CREATININE, URINE, CONC. (te st code = 2071) 33.3 MG/DL ALBUMIN, URINE, RANDOM (test code = 61996) 0.5 MG/DL CALC ALBUMIN/CREAT, RND (eden t code = 43674) 15 MG/G Teodoro [id number] 00:00:00* Test Item Value Reference Range Interpretation Comme nts TSH, THIRD GENERATION (test code = 2821) 0.648 UIU/ML Teodoro CantuCBC W/AUTO [id number] 00:00:00* Test Item Value Reference Range Interpretation Comme nts WBC (test code = 1001) 5.7 K/UL [...] COUNT (test code = 1015) 174 K/UL PSA, [id number] 00:00:00* Test Item Value Reference Range Interpretation Comme nts PSA, TOTAL (test code = 2606) 0.12 NG/ML Teodoro CantuHEMOGLOBIN [id number] 00:00:00* Test Item Value Reference Range Interpretation Comme nts HEMOGLOBIN A1c (test code = 41223) 12.4 % LIPID [id number] 00:00:00* Test Item Value Reference Range Interpretation Comme nts CHOLESTEROL (test code = 2210) 221 MG/DL TRIGLYCERIDES (test code = 2232) 935 MG/DL HDL CHOLESTEROL (test code = 2220) 31 MG/DL CALC LDL CHOL (test code = 2237) (NOTE) MG/DL RISK RATIO LDL/HDL (test cod e = 2238) (NOTE) RATIO COMPREHENSIVE METABOLIC [id number] 00:00:00* Test Item Value Reference Range Interpretation Comme nts GLUCOSE (test code = 2217) 311 MG/DL BUN (test code = 2208) 11 MG/DL CREATININE (test code = 2214) 0.58 MG/DL eGFR AMER. (test cod e = 11676) 139 ML/MIN/1.73 eGFR NON- AMER. (test code = 87065) 120 ML/MIN/1.73 CALC BUN/CREAT (test code = 2235) 19 RATIO SODIUM (test code = 2231) 136 MEQ/L POTASSIUM (test code = 2228) 3.9 MEQ/L CHLORIDE (test code = 2215) 101 MEQ/L CARBON DIOXIDE (test code = 2206) 21 MEQ/L CALCIUM (test code = 2209) 9.2 MG/DL PROTEIN, TOTAL (test code = 2229) 6.9 G/DL ALBUMIN (test code = 2201) 4.5 G/DL CALC GLOBULIN (test code = 2240) 2.4 G/DL CALC A/G RATIO (test code = 2234) 1.9 RATIO BILIRUBIN, TOTAL (test code = 2207) 0.6 MG/DL ALKALINE PHOSPHATASE (test code = 2204) 146 U/L AST (test code = 2218) 13 U/L ALT (test code = 2219) 20 U/L MICROALBUMIN/CREATININE, RANDOM AND [id number] 00:00:00* Test Item Value Reference Range Interpretation Comme nts CREATININE, URINE, CONC. (te st code = 2072) 33.3 MG/DL ALBUMIN, URINE, RANDOM (test code = 78113) 0.5 MG/DL CALC ALBUMIN/CREAT, RND (eden t code = 17799) 15 MG/G [id number] 00:00:00* Test Item Value Reference Range Interpretation Comme nts TSH, THIRD GENERATION (test code = 2821) 0.648 UIU/ML PSA, [id number] 00:00:00* Test Item Value Reference Range Interpretation Comme nts PSA, TOTAL (test code = 2606) 0.12 NG/ML CBC W/AUTO [id number] 00:00:00* Test Item Value Reference Range Interpretation Comme nts WBC (test code = 1001) 5.7 K/UL [...] (test code = 1015) 174 K/UL HEMOGLOBIN [id number] 00:00:00* Test Item Value Reference Range Interpretation Comme nts HEMOGLOBIN A1c (test code = 74616) 12.4 % LIPID [id number] 00:00:00* Test Item Value Reference Range Interpretation Comme nts CHOLESTEROL (test code = 2210) 221 MG/DL TRIGLYCERIDES (test code = 2232) 935 MG/DL HDL CHOLESTEROL (test code = 2220) 31 MG/DL CALC LDL CHOL (test code = 2237) (NOTE) MG/DL RISK RATIO LDL/HDL (test cod e = 2238) (NOTE) RATIO COMPREHENSIVE METABOLIC [id number] 00:00:00* Test Item Value Reference Range Interpretation Comme nts GLUCOSE (test code = 2217) 311 MG/DL BUN (test code = 2208) 11 MG/DL CREATININE (test code = 2214) 0.58 MG/DL eGFR AMER. (test cod e = 21245) 139 ML/MIN/1.73 eGFR NON- AMER. (test code = 37640) 120 ML/MIN/1.73 CALC BUN/CREAT (test code = 2235) 19 RATIO SODIUM (test code = 2231) 136 MEQ/L POTASSIUM (test code = 2228) 3.9 MEQ/L CHLORIDE (test code = 2215) 101 MEQ/L CARBON DIOXIDE (test code = 2206) 21 MEQ/L CALCIUM (test code = 2209) 9.2 MG/DL PROTEIN, TOTAL (test code = 2229) 6.9 G/DL ALBUMIN (test code = 2201) 4.5 G/DL CALC GLOBULIN (test code = 2240) 2.4 G/DL CALC A/G RATIO (test code = 2234) 1.9 RATIO BILIRUBIN, TOTAL (test code = 2207) 0.6 MG/DL ALKALINE PHOSPHATASE (test code = 2204) 146 U/L AST (test code = 2218) 13 U/L ALT (test code = 2219) 20 U/L MICROALBUMIN/CREATININE, RANDOM AND [id number] 00:00:00* Test Item Value Reference Range Interpretation Comme nts CREATININE, URINE, CONC. (te st code = 2072) 33.3 MG/DL ALBUMIN, URINE, RANDOM (test code = 92467) 0.5 MG/DL CALC ALBUMIN/CREAT, RND (eden t code = 41134) 15 MG/G [id number] 00:00:00* Test Item Value Reference Range Interpretation Comme nts TSH, THIRD GENERATION (test code = 2821) 0.648 UIU/ML PSA, [id number] 00:00:00* Test Item Value Reference Range Interpretation Comme nts PSA, TOTAL (test code = 2606) 0.12 NG/ML CBC W/AUTO [id number] 00:00:00* Test Item Value Reference Range Interpretation Comme nts WBC (test code = 1001) 5.7 K/UL [...] COUNT (test code = 1015) 174 K/UL Teodoro CantuCBC W/AUTO [id number] 00:00:00* Test Item Value Reference Range Interpretation Comme nts WBC (test code = 1001) 5.7 K/UL [...] (test code = 1015) 174 K/UL HEMOGLOBIN [id number] 00:00:00* Test Item Value Reference Range Interpretation Comme nts HEMOGLOBIN A1c (test code = 41792) 12.4 % LIPID [id number] 00:00:00* Test Item Value Reference Range Interpretation Comme nts CHOLESTEROL (test code = 2210) 221 MG/DL TRIGLYCERIDES (test code = 2232) 935 MG/DL HDL CHOLESTEROL (test code = 2220) 31 MG/DL CALC LDL CHOL (test code = 2237) (NOTE) MG/DL RISK RATIO LDL/HDL (test cod e = 2238) (NOTE) RATIO COMPREHENSIVE METABOLIC [id number] 00:00:00* Test Item Value Reference Range Interpretation Comme nts GLUCOSE (test code = 2217) 311 MG/DL BUN (test code = 2208) 11 MG/DL CREATININE (test code = 2214) 0.58 MG/DL eGFR AMER. (test cod e = 94308) 139 ML/MIN/1.73 eGFR NON- AMER. (test code = 00758) 120 ML/MIN/1.73 CALC BUN/CREAT (test code = 2235) 19 RATIO SODIUM (test code = 2231) 136 MEQ/L POTASSIUM (test code = 2228) 3.9 MEQ/L CHLORIDE (test code = 2215) 101 MEQ/L CARBON DIOXIDE (test code = 2206) 21 MEQ/L CALCIUM (test code = 2209) 9.2 MG/DL PROTEIN, TOTAL (test code = 2229) 6.9 G/DL ALBUMIN (test code = 2201) 4.5 G/DL CALC GLOBULIN (test code = 2240) 2.4 G/DL CALC A/G RATIO (test code = 2234) 1.9 RATIO BILIRUBIN, TOTAL (test code = 2207) 0.6 MG/DL ALKALINE PHOSPHATASE (test code = 2204) 146 U/L AST (test code = 2218) 13 U/L ALT (test code = 2219) 20 U/L MICROALBUMIN/CREATININE, RANDOM AND [id number] 00:00:00* Test Item Value Reference Range Interpretation Comme nts CREATININE, URINE, CONC. (te st code = 2072) 33.3 MG/DL ALBUMIN, URINE, RANDOM (test code = 96955) 0.5 MG/DL CALC ALBUMIN/CREAT, RND (eden t code = 74128) 15 MG/G [id number] 00:00:00* Test Item Value Reference Range Interpretation Comme nts TSH, THIRD GENERATION (test code = 2821) 0.648 UIU/ML PSA, [id number] 00:00:00* Test Item Value Reference Range Interpretation Comme nts PSA, TOTAL (test code = 2606) 0.12 NG/ML HEMOGLOBIN [id number] 00:00:00* Test Item Value Reference Range Interpretation Comme nts HEMOGLOBIN A1c (test code = 48018) 12.4 % Teodoro F PepeCBC W/AUTO [id number] 00:00:00* Test Item Value Reference Range Interpretation Comme nts WBC (test code = 1001) 5.7 K/UL [...] code = 1015) 174 K/UL CBC W/AUTO [id number] 00:00:00* Test Item Value Reference Range Interpretation Comme nts WBC (test code = 1001) 5.7 K/UL [...] COUNT (test code = 1015) 174 K/UL Teodoro Dodge AustinHEMOGLOBIN [id number] 00:00:00* Test Item Value Reference Range Interpretation Comme nts HEMOGLOBIN A1c (test code = 15917) 12.4 % LIPID [id number] 00:00:00* Test Item Value Reference Range Interpretation Comme nts CHOLESTEROL (test code = 2210) 221 MG/DL TRIGLYCERIDES (test code = 2232) 935 MG/DL HDL CHOLESTEROL (test code = 2220) 31 MG/DL CALC LDL CHOL (test code = 2237) (NOTE) MG/DL RISK RATIO LDL/HDL (test cod e = 2238) (NOTE) RATIO COMPREHENSIVE METABOLIC [id number] 00:00:00* Test Item Value Reference Range Interpretation Comme nts GLUCOSE (test code = 2217) 311 MG/DL BUN (test code = 2208) 11 MG/DL CREATININE (test code = 2214) 0.58 MG/DL eGFR AMER. (test cod e = 26508) 139 ML/MIN/1.73 eGFR NON- AMER. (test code = 53056) 120 ML/MIN/1.73 CALC BUN/CREAT (test code = 2235) 19 RATIO SODIUM (test code = 2231) 136 MEQ/L POTASSIUM (test code = 2228) 3.9 MEQ/L CHLORIDE (test code = 2215) 101 MEQ/L CARBON DIOXIDE (test code = 2206) 21 MEQ/L CALCIUM (test code = 2209) 9.2 MG/DL PROTEIN, TOTAL (test code = 2229) 6.9 G/DL ALBUMIN (test code = 2201) 4.5 G/DL CALC GLOBULIN (test code = 2240) 2.4 G/DL CALC A/G RATIO (test code = 2234) 1.9 RATIO BILIRUBIN, TOTAL (test code = 2207) 0.6 MG/DL ALKALINE PHOSPHATASE (test code = 2204) 146 U/L AST (test code = 2218) 13 U/L ALT (test code = 2219) 20 U/L MICROALBUMIN/CREATININE, RANDOM AND [id number] 00:00:00* Test Item Value Reference Range Interpretation Comme nts CREATININE, URINE, CONC. (te st code = 2072) 33.3 MG/DL ALBUMIN, URINE, RANDOM (test code = 05035) 0.5 MG/DL CALC ALBUMIN/CREAT, RND (eden t code = 11434) 15 MG/G [id number] 00:00:00* Test Item Value Reference Range Interpretation Comme nts TSH, THIRD GENERATION (test code = 2821) 0.648 UIU/ML PSA, [id number] 00:00:00* Test Item Value Reference Range Interpretation Comme nts PSA, TOTAL (test code = 2606) 0.12 NG/ML CBC W/AUTO [id number] 00:00:00* Test Item Value Reference Range Interpretation Comme nts WBC (test code = 1001) 5.7 K/UL [...] (test code = 1015) 174 K/UL HEMOGLOBIN [id number] 00:00:00* Test Item Value Reference Range Interpretation Comme nts HEMOGLOBIN A1c (test code = 97696) 12.4 % LIPID [id number] 00:00:00* Test Item Value Reference Range Interpretation Comme nts CHOLESTEROL (test code = 2210) 221 MG/DL TRIGLYCERIDES (test code = 2232) 935 MG/DL HDL CHOLESTEROL (test code = 2220) 31 MG/DL CALC LDL CHOL (test code = 2237) (NOTE) MG/DL RISK RATIO LDL/HDL (test cod e = 2238) (NOTE) RATIO COMPREHENSIVE METABOLIC [id number] 00:00:00* Test Item Value Reference Range Interpretation Comme nts GLUCOSE (test code = 2217) 311 MG/DL BUN (test code = 2208) 11 MG/DL CREATININE (test code = 2214) 0.58 MG/DL eGFR AMER. (test cod e = 31639) 139 ML/MIN/1.73 eGFR NON- AMER. (test code = 56651) 120 ML/MIN/1.73 CALC BUN/CREAT (test code = 2235) 19 RATIO SODIUM (test code = 2231) 136 MEQ/L POTASSIUM (test code = 2228) 3.9 MEQ/L CHLORIDE (test code = 2215) 101 MEQ/L CARBON DIOXIDE (test code = 2206) 21 MEQ/L CALCIUM (test code = 2209) 9.2 MG/DL PROTEIN, TOTAL (test code = 2229) 6.9 G/DL ALBUMIN (test code = 2201) 4.5 G/DL CALC GLOBULIN (test code = 2240) 2.4 G/DL CALC A/G RATIO (test code = 2234) 1.9 RATIO BILIRUBIN, TOTAL (test code = 2207) 0.6 MG/DL ALKALINE PHOSPHATASE (test code = 2204) 146 U/L AST (test code = 2218) 13 U/L ALT (test code = 2219) 20 U/L MICROALBUMIN/CREATININE, RANDOM AND [id number] 00:00:00* Test Item Value Reference Range Interpretation Comme nts CREATININE, URINE, CONC. (te st code = 2072) 33.3 MG/DL ALBUMIN, URINE, RANDOM (test code = 93776) 0.5 MG/DL CALC ALBUMIN/CREAT, RND (eden t code = 29066) 15 MG/G [id number] 00:00:00* Test Item Value Reference Range Interpretation Comme nts TSH, THIRD GENERATION (test code = 2821) 0.648 UIU/ML PSA, [id number] 00:00:00* Test Item Value Reference Range Interpretation Comme nts PSA, TOTAL (test code = 2606) 0.12 NG/ML CBC W/AUTO [id number] 00:00:00* Test Item Value Reference Range Interpretation Comme nts WBC (test code = 1001) 5.7 K/UL [...] (test code = 1015) 174 K/UL HEMOGLOBIN [id number] 00:00:00* Test Item Value Reference Range Interpretation Comme nts HEMOGLOBIN A1c (test code = 35361) 12.4 % LIPID [id number] 00:00:00* Test Item Value Reference Range Interpretation Comme nts CHOLESTEROL (test code = 2210) 221 MG/DL TRIGLYCERIDES (test code = 2232) 935 MG/DL HDL CHOLESTEROL (test code = 2220) 31 MG/DL CALC LDL CHOL (test code = 2237) (NOTE) MG/DL RISK RATIO LDL/HDL (test cod e = 2238) (NOTE) RATIO COMPREHENSIVE METABOLIC [id number] 00:00:00* Test Item Value Reference Range Interpretation Comme nts GLUCOSE (test code = 2217) 311 MG/DL BUN (test code = 2208) 11 MG/DL CREATININE (test code = 2214) 0.58 MG/DL eGFR AMER. (test cod e = 98899) 139 ML/MIN/1.73 eGFR NON- AMER. (test code = 44663) 120 ML/MIN/1.73 CALC BUN/CREAT (test code = 2235) 19 RATIO SODIUM (test code = 2231) 136 MEQ/L POTASSIUM (test code = 2228) 3.9 MEQ/L CHLORIDE (test code = 2215) 101 MEQ/L CARBON DIOXIDE (test code = 2206) 21 MEQ/L CALCIUM (test code = 2209) 9.2 MG/DL PROTEIN, TOTAL (test code = 2229) 6.9 G/DL ALBUMIN (test code = 2201) 4.5 G/DL CALC GLOBULIN (test code = 2240) 2.4 G/DL CALC A/G RATIO (test code = 2234) 1.9 RATIO BILIRUBIN, TOTAL (test code = 2207) 0.6 MG/DL ALKALINE PHOSPHATASE (test code = 2204) 146 U/L AST (test code = 2218) 13 U/L ALT (test code = 2219) 20 U/L MICROALBUMIN/CREATININE, RANDOM AND [id number] 00:00:00* Test Item Value Reference Range Interpretation Comme nts CREATININE, URINE, CONC. (te st code = 2072) 33.3 MG/DL ALBUMIN, URINE, RANDOM (test code = 10676) 0.5 MG/DL CALC ALBUMIN/CREAT, RND (eden t code = 99649) 15 MG/G [id number] 00:00:00* Test Item Value Reference Range Interpretation Comme nts TSH, THIRD GENERATION (test code = 2821) 0.648 UIU/ML PSA, [id number] 00:00:00* Test Item Value Reference Range Interpretation Comme nts PSA, TOTAL (test code = 2606) 0.12 NG/ML LIPID [id number] 00:00:00* Test Item Value Reference Range Interpretation Comme nts CHOLESTEROL (test code = 2210) 221 MG/DL TRIGLYCERIDES (test code = 2232) 935 MG/DL HDL CHOLESTEROL (test code = 2220) 31 MG/DL CALC LDL CHOL (test code = 2237) (NOTE) MG/DL RISK RATIO LDL/HDL (test cod e = 2238) (NOTE) RATIO Teodoro F AustinCOMPREHENSIVE METABOLIC [id number] 00:00:00* Test Item Value Reference Range Interpretation Comme nts GLUCOSE (test code = 2217) 311 MG/DL BUN (test code = 2208) 11 MG/DL CREATININE (test code = 2214) 0.58 MG/DL eGFR AMER. (test cod e = 88054) 139 ML/MIN/1.73 eGFR NON- AMER. (test code = 07183) 120 ML/MIN/1.73 CALC BUN/CREAT (test code = 2235) 19 RATIO SODIUM (test code = 2231) 136 MEQ/L POTASSIUM (test code = 2228) 3.9 MEQ/L CHLORIDE (test code = 2215) 101 MEQ/L CARBON DIOXIDE (test code = 2206) 21 MEQ/L CALCIUM (test code = 2209) 9.2 MG/DL PROTEIN, TOTAL (test code = 2229) 6.9 G/DL ALBUMIN (test code = 2201) 4.5 G/DL CALC GLOBULIN (test code = 2240) 2.4 G/DL CALC A/G RATIO (test code = 2234) 1.9 RATIO BILIRUBIN, TOTAL (test code = 2207) 0.6 MG/DL ALKALINE PHOSPHATASE (test code = 2204) 146 U/L AST (test code = 2218) 13 U/L ALT (test code = 2219) 20 U/L Teodoro CantuMICROALBUMIN/CREATININE, RANDOM AND [id number] 00:00:00* Test Item Value Reference Range Interpretation Comme bria CREATININE, URINE, CONC. (te st code = 2072) 33.3 MG/DL ALBUMIN, URINE, RANDOM (test code = 34778) 0.5 MG/DL CALC ALBUMIN/CREAT, RND (eden t code = 75259) 15 MG/G Teodoro [id number] 00:00:00* Test Item Value Reference Range Interpretation Comme bria TSH, THIRD GENERATION (test code = 2821) 0.648 UIU/ML Teodoro CantuHEMOGLOBIN [id number] 00:00:00* Test Item Value Reference Range Interpretation Comme bria HEMOGLOBIN A1c (test code = 84317) 12.4 % Teodoro CantuPSA, [id number] 00:00:00* Test Item Value Reference Range Interpretation Comme nts PSA, TOTAL (test code = 2606) 0.12 NG/ML Teodoro CantuCBC W/AUTO [id number] 00:00:00* Test Item Value Reference Range Interpretation Comme nts WBC (test code = 1001) 5.7 K/UL [...] COUNT (test code = 1015) 174 K/UL Teodoro CantuHEMOGLOBIN [id number] 00:00:00* Test Item Value Reference Range Interpretation Comme nts HEMOGLOBIN A1c (test code = 30120) 12.4 % Teodoro CantuLIPID [id number] 00:00:00* Test Item Value Reference Range Interpretation Comme nts CHOLESTEROL (test code = 2210) 221 MG/DL TRIGLYCERIDES (test code = 2232) 935 MG/DL HDL CHOLESTEROL (test code = 2220) 31 MG/DL CALC LDL CHOL (test code = 2237) (NOTE) MG/DL RISK RATIO LDL/HDL (test cod e = 2238) (NOTE) RATIO Teodoro CantuCOMPREHENSIVE METABOLIC [id number] 00:00:00* Test Item Value Reference Range Interpretation Comme nts GLUCOSE (test code = 2217) 311 MG/DL BUN (test code = 2208) 11 MG/DL CREATININE (test code = 2214) 0.58 MG/DL eGFR AMER. (test cod e = 41468) 139 ML/MIN/1.73 eGFR NON- AMER. (test code = 41689) 120 ML/MIN/1.73 CALC BUN/CREAT (test code = 2235) 19 RATIO SODIUM (test code = 223) 136 MEQ/L POTASSIUM (test code = 2228) 3.9 MEQ/L CHLORIDE (test code = 2215) 101 MEQ/L CARBON DIOXIDE (test code = 2206) 21 MEQ/L CALCIUM (test code = 2209) 9.2 MG/DL PROTEIN, TOTAL (test code = 9) 6.9 G/DL ALBUMIN (test code = 2200) 4.5 G/DL CALC GLOBULIN (test code = 2240) 2.4 G/DL CALC A/G RATIO (test code = 2234) 1.9 RATIO BILIRUBIN, TOTAL (test code = 7) 0.6 MG/DL ALKALINE PHOSPHATASE (test code = 2203) 146 U/L AST (test code = 2217) 13 U/L ALT (test code = 2218) 20 U/L Teodoro CantuMICROALBUMIN/CREATININE, RANDOM AND [id number] 00:00:00* Test Item Value Reference Range Interpretation Comme nts CREATININE, URINE, CONC. (te st code = 2072) 33.3 MG/DL ALBUMIN, URINE, RANDOM (test code = 72021) 0.5 MG/DL CALC ALBUMIN/CREAT, RND (eden t code = 72389) 15 MG/G Teodoro [id number] 00:00:00* Test Item Value Reference Range Interpretation Comme nts TSH, THIRD GENERATION (test code = 2821) 0.648 UIU/ML Teodoro CantuPSA, [id number] 00:00:00* Test Item Value Reference Range Interpretation Comme nts PSA, TOTAL (test code = 2606) 0.12 NG/ML Teodoro CantuCBC W/AUTO [id number] 00:00:00* Test Item Value Reference Range Interpretation Comme nts WBC (test code = 1001) 5.7 K/UL [...] COUNT (test code = 1015) 174 K/UL Teodoro CantuHEMOGLOBIN [id number] 00:00:00* Test Item Value Reference Range Interpretation Comme nts HEMOGLOBIN A1c (test code = 20460) 12.4 % Teodoro CantuLIPID [id number] 00:00:00* Test Item Value Reference Range Interpretation Comme nts CHOLESTEROL (test code = 2210) 221 MG/DL TRIGLYCERIDES (test code = 2232) 935 MG/DL HDL CHOLESTEROL (test code = 2220) 31 MG/DL CALC LDL CHOL (test code = 2237) (NOTE) MG/DL RISK RATIO LDL/HDL (test cod e = 2238) (NOTE) RATIO Teodoro CantuCOMPREHENSIVE METABOLIC [id number] 00:00:00* Test Item Value Reference Range Interpretation Comme nts GLUCOSE (test code = 2217) 311 MG/DL BUN (test code = 2208) 11 MG/DL CREATININE (test code = 2214) 0.58 MG/DL eGFR AMER. (test cod e = 81963) 139 ML/MIN/1.73 eGFR NON- AMER. (test code = 98279) 120 ML/MIN/1.73 CALC BUN/CREAT (test code = 2235) 19 RATIO SODIUM (test code = 2231) 136 MEQ/L POTASSIUM (test code = 2228) 3.9 MEQ/L CHLORIDE (test code = 2215) 101 MEQ/L CARBON DIOXIDE (test code = 2206) 21 MEQ/L CALCIUM (test code = 2209) 9.2 MG/DL PROTEIN, TOTAL (test code = 2229) 6.9 G/DL ALBUMIN (test code = 2201) 4.5 G/DL CALC GLOBULIN (test code = 2240) 2.4 G/DL CALC A/G RATIO (test code = 2234) 1.9 RATIO BILIRUBIN, TOTAL (test code = 2207) 0.6 MG/DL ALKALINE PHOSPHATASE (test code = 2204) 146 U/L AST (test code = 2218) 13 U/L ALT (test code = 2219) 20 U/L Teodoro CantuMICROALBUMIN/CREATININE, RANDOM AND [id number] 00:00:00* Test Item Value Reference Range Interpretation Comme bria CREATININE, URINE, CONC. (te st code = 2072) 33.3 MG/DL ALBUMIN, URINE, RANDOM (test code = 36212) 0.5 MG/DL CALC ALBUMIN/CREAT, RND (eden t code = 47442) 15 MG/G Teodoro [id number] 00:00:00* Test Item Value Reference Range Interpretation Comme nts TSH, THIRD GENERATION (test code = 2821) 0.648 UIU/ML Teodoro CantuPSA, [id number] 00:00:00* Test Item Value Reference Range Interpretation Comme nts PSA, TOTAL (test code = 2606) 0.12 NG/ML Teodoro CantuLIPID [id number] 00:00:00* Test Item Value Reference Range Interpretation Comme nts CHOLESTEROL (test code = 2210) 221 MG/DL TRIGLYCERIDES (test code = 2232) 935 MG/DL HDL CHOLESTEROL (test code = 2220) 31 MG/DL CALC LDL CHOL (test code = 2237) (NOTE) MG/DL RISK RATIO LDL/HDL (test cod e = 2238) (NOTE) RATIO Toedoro CantuCOMPREHENSIVE METABOLIC [id number] 00:00:00* Test Item Value Reference Range Interpretation Comme nts GLUCOSE (test code = 2217) 311 MG/DL BUN (test code = 2208) 11 MG/DL CREATININE (test code = 2214) 0.58 MG/DL eGFR AMER. (test cod e = 55354) 139 ML/MIN/1.73 eGFR NON- AMER. (test code = 36070) 120 ML/MIN/1.73 CALC BUN/CREAT (test code = 2235) 19 RATIO SODIUM (test code = 2231) 136 MEQ/L POTASSIUM (test code = 2228) 3.9 MEQ/L CHLORIDE (test code = 2215) 101 MEQ/L CARBON DIOXIDE (test code = 2206) 21 MEQ/L CALCIUM (test code = 2209) 9.2 MG/DL PROTEIN, TOTAL (test code = 2229) 6.9 G/DL ALBUMIN (test code = 2201) 4.5 G/DL CALC GLOBULIN (test code = 2240) 2.4 G/DL CALC A/G RATIO (test code = 2234) 1.9 RATIO BILIRUBIN, TOTAL (test code = 2207) 0.6 MG/DL ALKALINE PHOSPHATASE (test code = 2204) 146 U/L AST (test code = 2218) 13 U/L ALT (test code = 2219) 20 U/L Teodoro CantuMICROALBUMIN/CREATININE, RANDOM AND [id number] 00:00:00* Test Item Value Reference Range Interpretation Comme nts CREATININE, URINE, CONC. (te st code = 2072) 33.3 MG/DL ALBUMIN, URINE, RANDOM (test code = 98493) 0.5 MG/DL CALC ALBUMIN/CREAT, RND (eden t code = 73713) 15 MG/G Teodoro [id number] 00:00:00* Test Item Value Reference Range Interpretation Comme nts TSH, THIRD GENERATION (test code = 2821) 0.648 UIU/ML Teodoro CantuPSA, [id number] 00:00:00* Test Item Value Reference Range Interpretation Comme nts PSA, TOTAL (test code = 2606) 0.12 NG/ML Teodoro CantuCBC W/AUTO [id number] 00:00:00* Test Item Value Reference Range Interpretation Comme nts WBC (test code = 1001) 5.7 K/UL [...] COUNT (test code = 1015) 174 K/UL Teodoro CantuHEMOGLOBIN [id number] 00:00:00* Test Item Value Reference Range Interpretation Comme bria HEMOGLOBIN A1c (test code = 57370) 12.4 % Teodoro CantuLIPID [id number] 00:00:00* Test Item Value Reference Range Interpretation Comme nts CHOLESTEROL (test code = 2210) 221 MG/DL TRIGLYCERIDES (test code = 2232) 935 MG/DL HDL CHOLESTEROL (test code = 2220) 31 MG/DL CALC LDL CHOL (test code = 2237) (NOTE) MG/DL RISK RATIO LDL/HDL (test cod e = 2238) (NOTE) RATIO Teodoro CantuCOMPREHENSIVE METABOLIC [id number] 00:00:00* Test Item Value Reference Range Interpretation Comme nts GLUCOSE (test code = 2217) 311 MG/DL BUN (test code = 2208) 11 MG/DL CREATININE (test code = 2214) 0.58 MG/DL eGFR AMER. (test cod e = 90850) 139 ML/MIN/1.73 eGFR NON- AMER. (test code = 66131) 120 ML/MIN/1.73 CALC BUN/CREAT (test code = 2235) 19 RATIO SODIUM (test code = 2231) 136 MEQ/L POTASSIUM (test code = 2228) 3.9 MEQ/L CHLORIDE (test code = 2215) 101 MEQ/L CARBON DIOXIDE (test code = 2206) 21 MEQ/L CALCIUM (test code = 2209) 9.2 MG/DL PROTEIN, TOTAL (test code = 2229) 6.9 G/DL ALBUMIN (test code = 2201) 4.5 G/DL CALC GLOBULIN (test code = 2240) 2.4 G/DL CALC A/G RATIO (test code = 2234) 1.9 RATIO BILIRUBIN, TOTAL (test code = 2207) 0.6 MG/DL ALKALINE PHOSPHATASE (test code = 2204) 146 U/L AST (test code = 2218) 13 U/L ALT (test code = 2219) 20 U/L Teodoro CantuMICROALBUMIN/CREATININE, RANDOM AND [id number] 00:00:00* Test Item Value Reference Range Interpretation Comme nts CREATININE, URINE, CONC. (te st code = 2071) 33.3 MG/DL ALBUMIN, URINE, RANDOM (test code = 02936) 0.5 MG/DL CALC ALBUMIN/CREAT, RND (eden t code = 51291) 15 MG/G Teodoro [id number] 00:00:00* Test Item Value Reference Range Interpretation Comme bria TSH, THIRD GENERATION (test code = 2821) 0.648 UIU/ML Teodoro CantuPSA, [id number] 00:00:00* Test Item Value Reference Range Interpretation Comme bria PSA, TOTAL (test code = 2606) 0.12 NG/ML Teodoro CantuCBC W/AUTO [id number] 00:00:00* Test Item Value Reference Range Interpretation Comme nts WBC (test code = 1001) 5.7 K/UL [...] COUNT (test code = 1015) 174 K/UL Teodoro CantuHEMOGLOBIN [id number] 00:00:00* Test Item Value Reference Range Interpretation Comme bria HEMOGLOBIN A1c (test code = 88503) 12.4 % Teodoro CantuLIPID [id number] 00:00:00* Test Item Value Reference Range Interpretation Comme nts CHOLESTEROL (test code = 2210) 221 MG/DL TRIGLYCERIDES (test code = 2232) 935 MG/DL HDL CHOLESTEROL (test code = 2220) 31 MG/DL CALC LDL CHOL (test code = 2237) (NOTE) MG/DL RISK RATIO LDL/HDL (test cod e = 2238) (NOTE) RATIO Teodoro CantuCOMPREHENSIVE METABOLIC [id number] 00:00:00* Test Item Value Reference Range Interpretation Comme nts GLUCOSE (test code = 2217) 311 MG/DL BUN (test code = 2208) 11 MG/DL CREATININE (test code = 2214) 0.58 MG/DL eGFR AMER. (test cod e = 74763) 139 ML/MIN/1.73 eGFR NON- AMER. (test code = 44094) 120 ML/MIN/1.73 CALC BUN/CREAT (test code = 2235) 19 RATIO SODIUM (test code = 2231) 136 MEQ/L POTASSIUM (test code = 2228) 3.9 MEQ/L CHLORIDE (test code = 2215) 101 MEQ/L CARBON DIOXIDE (test code = 2206) 21 MEQ/L CALCIUM (test code = 2209) 9.2 MG/DL PROTEIN, TOTAL (test code = 222) 6.9 G/DL ALBUMIN (test code = 2201) 4.5 G/DL CALC GLOBULIN (test code = 2240) 2.4 G/DL CALC A/G RATIO (test code = 2234) 1.9 RATIO BILIRUBIN, TOTAL (test code = 2207) 0.6 MG/DL ALKALINE PHOSPHATASE (test code = 2204) 146 U/L AST (test code = 2218) 13 U/L ALT (test code = 2219) 20 U/L Teodoro CantuMICROALBUMIN/CREATININE, RANDOM AND [id number] 00:00:00* Test Item Value Reference Range Interpretation Comme nts CREATININE, URINE, CONC. (te st code = 2072) 33.3 MG/DL ALBUMIN, URINE, RANDOM (test code = 17313) 0.5 MG/DL CALC ALBUMIN/CREAT, RND (eden t code = 58438) 15 MG/G Teodoro [id number] 00:00:00* Test Item Value Reference Range Interpretation Comme nts TSH, THIRD GENERATION (test code = 2821) 0.648 UIU/ML Teodoro CantuPSA, [id number] 00:00:00* Test Item Value Reference Range Interpretation Comme nts PSA, TOTAL (test code = 2606) 0.12 NG/ML Teodoro CantuCBC W/AUTO [id number] 00:00:00* Test Item Value Reference Range Interpretation Comme nts WBC (test code = 1001) 5.7 K/UL [...] COUNT (test code = 1015) 174 K/UL Teodoro CantuHEMOGLOBIN [id number] 00:00:00* Test Item Value Reference Range Interpretation Comme [facility] HEMOGLOBIN A1c (test code = 78154) 12.4 % Teodoro CantuLIPID [id number] 00:00:00* Test Item Value Reference Range Interpretation Comme nts CHOLESTEROL (test code = 2210) 221 MG/DL TRIGLYCERIDES (test code = 2232) 935 MG/DL HDL CHOLESTEROL (test code = 2220) 31 MG/DL CALC LDL CHOL (test code = 2237) (NOTE) MG/DL RISK RATIO LDL/HDL (test cod e = 2238) (NOTE) RATIO Teodoro CantuCOMPREHENSIVE METABOLIC [id number] 00:00:00* Test Item Value Reference Range Interpretation Comme nts GLUCOSE (test code = 2217) 311 MG/DL BUN (test code = 2208) 11 MG/DL CREATININE (test code = 2214) 0.58 MG/DL eGFR AMER. (test cod e = 40694) 139 ML/MIN/1.73 eGFR NON- AMER. (test code = 59893) 120 ML/MIN/1.73 CALC BUN/CREAT (test code = 2235) 19 RATIO SODIUM (test code = 2231) 136 MEQ/L POTASSIUM (test code = 2228) 3.9 MEQ/L CHLORIDE (test code = 2215) 101 MEQ/L CARBON DIOXIDE (test code = 2206) 21 MEQ/L CALCIUM (test code = 2209) 9.2 MG/DL PROTEIN, TOTAL (test code = 2229) 6.9 G/DL ALBUMIN (test code = 2201) 4.5 G/DL CALC GLOBULIN (test code = 2240) 2.4 G/DL CALC A/G RATIO (test code = 2234) 1.9 RATIO BILIRUBIN, TOTAL (test code = 2207) 0.6 MG/DL ALKALINE PHOSPHATASE (test code = 2204) 146 U/L AST (test code = 2218) 13 U/L ALT (test code = 2219) 20 U/L Teodoro CantuMICROALBUMIN/CREATININE, RANDOM AND [id number] 00:00:00* Test Item Value Reference Range Interpretation Comme nts CREATININE, URINE, CONC. (te st code = 2072) 33.3 MG/DL ALBUMIN, URINE, RANDOM (test code = 47806) 0.5 MG/DL CALC ALBUMIN/CREAT, RND (eden t code = 15774) 15 MG/G Teodoro [id number] 00:00:00* Test Item Value Reference Range Interpretation Comme nts TSH, THIRD GENERATION (test code = 2821) 0.648 UIU/ML Teodoro CantuPSA, [id number] 00:00:00* Test Item Value Reference Range Interpretation Comme nts PSA, TOTAL (test code = 2606) 0.12 NG/ML Teodoro CantuCBC W/AUTO [id number] 00:00:00* Test Item Value Reference Range Interpretation Comme nts WBC (test code = 1001) 5.7 K/UL [...] COUNT (test code = 1015) 174 K/UL Teodoro CantuHEMOGLOBIN [id number] 00:00:00* Test Item Value Reference Range Interpretation Comme bria HEMOGLOBIN A1c (test code = 92475) 12.4 % Teodoro CantuLIPID [id number] 00:00:00* Test Item Value Reference Range Interpretation Comme nts CHOLESTEROL (test code = 2210) 221 MG/DL TRIGLYCERIDES (test code = 2232) 935 MG/DL HDL CHOLESTEROL (test code = 2220) 31 MG/DL CALC LDL CHOL (test code = 2237) (NOTE) MG/DL RISK RATIO LDL/HDL (test cod e = 2238) (NOTE) RATIO Teodoro CantuCOMPREHENSIVE METABOLIC [id number] 00:00:00* Test Item Value Reference Range Interpretation Comme nts GLUCOSE (test code = 2217) 311 MG/DL BUN (test code = 2208) 11 MG/DL CREATININE (test code = 2214) 0.58 MG/DL eGFR AMER. (test cod e = 90966) 139 ML/MIN/1.73 eGFR NON- AMER. (test code = 03635) 120 ML/MIN/1.73 CALC BUN/CREAT (test code = 2235) 19 RATIO SODIUM (test code = 2231) 136 MEQ/L POTASSIUM (test code = 2228) 3.9 MEQ/L CHLORIDE (test code = 2215) 101 MEQ/L CARBON DIOXIDE (test code = 2206) 21 MEQ/L CALCIUM (test code = 2209) 9.2 MG/DL PROTEIN, TOTAL (test code = 2229) 6.9 G/DL ALBUMIN (test code = 2201) 4.5 G/DL CALC GLOBULIN (test code = 2240) 2.4 G/DL CALC A/G RATIO (test code = 2234) 1.9 RATIO BILIRUBIN, TOTAL (test code = 2207) 0.6 MG/DL ALKALINE PHOSPHATASE (test code = 2204) 146 U/L AST (test code = 2218) 13 U/L ALT (test code = 2219) 20 U/L Teodoro CantuMICROALBUMIN/CREATININE, RANDOM AND [id number] 00:00:00* Test Item Value Reference Range Interpretation Comme nts CREATININE, URINE, CONC. (te st code = 2072) 33.3 MG/DL ALBUMIN, URINE, RANDOM (test code = 38258) 0.5 MG/DL CALC ALBUMIN/CREAT, RND (eden t code = 69153) 15 MG/G Teodoro [id number] 00:00:00* Test Item Value Reference Range Interpretation Comme nts TSH, THIRD GENERATION (test code = 2821) 0.648 UIU/ML Teodoro CantuPSA, [id number] 00:00:00* Test Item Value Reference Range Interpretation Comme nts PSA, TOTAL (test code = 2606) 0.12 NG/ML Teodoro CantuCBC W/AUTO [id number] 00:00:00* Test Item Value Reference Range Interpretation Comme nts WBC (test code = 1001) 5.7 K/UL [...] COUNT (test code = 1015) 174 K/UL Teodoro CantuHEMOGLOBIN [id number] 00:00:00* Test Item Value Reference Range Interpretation Comme bria HEMOGLOBIN A1c (test code = 12885) 12.4 % Teodoro CantuLIPID [id number] 00:00:00* Test Item Value Reference Range Interpretation Comme nts CHOLESTEROL (test code = 2210) 221 MG/DL TRIGLYCERIDES (test code = 2232) 935 MG/DL HDL CHOLESTEROL (test code = 2220) 31 MG/DL CALC LDL CHOL (test code = 2237) (NOTE) MG/DL RISK RATIO LDL/HDL (test cod e = 2238) (NOTE) RATIO Teodoro F AustinCOMPREHENSIVE METABOLIC [id number] 00:00:00* Test Item Value Reference Range Interpretation Comme nts GLUCOSE (test code = 2217) 311 MG/DL BUN (test code = 2208) 11 MG/DL CREATININE (test code = 2214) 0.58 MG/DL eGFR AMER. (test cod e = 53927) 139 ML/MIN/1.73 eGFR NON- AMER. (test code = 33098) 120 ML/MIN/1.73 CALC BUN/CREAT (test code = 2235) 19 RATIO SODIUM (test code = 2231) 136 MEQ/L POTASSIUM (test code = 2228) 3.9 MEQ/L CHLORIDE (test code = 2215) 101 MEQ/L CARBON DIOXIDE (test code = 2206) 21 MEQ/L CALCIUM (test code = 2209) 9.2 MG/DL PROTEIN, TOTAL (test code = 2229) 6.9 G/DL ALBUMIN (test code = 2201) 4.5 G/DL CALC GLOBULIN (test code = 2240) 2.4 G/DL CALC A/G RATIO (test code = 2234) 1.9 RATIO BILIRUBIN, TOTAL (test code = 2207) 0.6 MG/DL ALKALINE PHOSPHATASE (test code = 2204) 146 U/L AST (test code = 2218) 13 U/L ALT (test code = 2219) 20 U/L Teodoro CantuMICROALBUMIN/CREATININE, RANDOM AND [id number] 00:00:00* Test Item Value Reference Range Interpretation Comme nts CREATININE, URINE, CONC. (te st code = 2072) 33.3 MG/DL ALBUMIN, URINE, RANDOM (test code = 34641) 0.5 MG/DL CALC ALBUMIN/CREAT, RND (eden t code = 06219) 15 MG/G Teodoro [id number] 00:00:00* Test Item Value Reference Range Interpretation Comme nts TSH, THIRD GENERATION (test code = 2821) 0.648 UIU/ML Teodoro CatnuPSA, [id number] 00:00:00* Test Item Value Reference Range Interpretation Comme nts PSA, TOTAL (test code = 2606) 0.12 NG/ML Teodoro CantuCBC W/AUTO [id number] 00:00:00* Test Item Value Reference Range Interpretation Comme nts WBC (test code = 1001) 5.7 K/UL [...] COUNT (test code = 1015) 174 K/UL Teodoro CantuHEMOGLOBIN [id number] 00:00:00* Test Item Value Reference Range Interpretation Comme nts HEMOGLOBIN A1c (test code = 95772) 12.4 % Teodoro Dodge AustinLIPID [id number] 00:00:00* Test Item Value Reference Range Interpretation Comme nts CHOLESTEROL (test code = 2210) 221 MG/DL TRIGLYCERIDES (test code = 2232) 935 MG/DL HDL CHOLESTEROL (test code = 2220) 31 MG/DL CALC LDL CHOL (test code = 2237) (NOTE) MG/DL RISK RATIO LDL/HDL (test cod e = 2238) (NOTE) RATIO Teodoro CantuCOMPREHENSIVE METABOLIC [id number] 00:00:00* Test Item Value Reference Range Interpretation Comme nts GLUCOSE (test code = 2217) 311 MG/DL BUN (test code = 2208) 11 MG/DL CREATININE (test code = 2214) 0.58 MG/DL eGFR AMER. (test cod e = 44747) 139 ML/MIN/1.73 eGFR NON- AMER. (test code = 07560) 120 ML/MIN/1.73 CALC BUN/CREAT (test code = 2235) 19 RATIO SODIUM (test code = 2231) 136 MEQ/L POTASSIUM (test code = 2228) 3.9 MEQ/L CHLORIDE (test code = 2215) 101 MEQ/L CARBON DIOXIDE (test code = 2206) 21 MEQ/L CALCIUM (test code = 2209) 9.2 MG/DL PROTEIN, TOTAL (test code = 2229) 6.9 G/DL ALBUMIN (test code = 2201) 4.5 G/DL CALC GLOBULIN (test code = 2240) 2.4 G/DL CALC A/G RATIO (test code = 2234) 1.9 RATIO BILIRUBIN, TOTAL (test code = 2207) 0.6 MG/DL ALKALINE PHOSPHATASE (test code = 2204) 146 U/L AST (test code = 2218) 13 U/L ALT (test code = 2219) 20 U/L Teodoro CantuCBC W/AUTO [id number] 00:00:00* Test Item Value Reference Range Interpretation Comme nts WBC (test code = 1001) 6.0 K/UL [...] COUNT (test code = 1015) 202 K/UL Teodoro CantuCOMPREHENSIVE METABOLIC [id number] 00:00:00* Test Item Value Reference Range Interpretation Comme nts GLUCOSE (test code = 2217) 270 MG/DL BUN (test code = 2208) 10 MG/DL CREATININE (test code = 2214) 0.49 MG/DL eGFR AMER. (test cod e = 72986) 150 ML/MIN/1.73 eGFR NON- AMER. (test code = 33308) 129 ML/MIN/1.73 CALC BUN/CREAT (test code = 2235) 20 RATIO SODIUM (test code = 2231) 136 MEQ/L POTASSIUM (test code = 2228) 4.2 MEQ/L CHLORIDE (test code = 2215) 98 MEQ/L CARBON DIOXIDE (test code = 2206) 23 MEQ/L CALCIUM (test code = 2209) 9.7 MG/DL PROTEIN, TOTAL (test code = 2229) 7.5 G/DL ALBUMIN (test code = 2201) 4.9 G/DL CALC GLOBULIN (test code = 2240) 2.6 G/DL CALC A/G RATIO (test code = 2234) 1.9 RATIO BILIRUBIN, TOTAL (test code = 2207) 0.8 MG/DL ALKALINE PHOSPHATASE (test code = 2204) 168 U/L AST (test code = 2218) 12 U/L ALT (test code = 2219) 22 U/L Teodoro CantuLIPID [id number] 00:00:00* Test Item Value Reference Range Interpretation Comme nts CHOLESTEROL (test code = 2210) 243 MG/DL TRIGLYCERIDES (test code = 2232) 703 MG/DL HDL CHOLESTEROL (test code = 2220) 38 MG/DL CALC LDL CHOL (test code = 2237) (NOTE) MG/DL RISK RATIO LDL/HDL (test cod e = 2238) (NOTE) RATIO Teodoro CantuHEMOGLOBIN [id number] 00:00:00* Test Item Value Reference Range Interpretation Comme nts HEMOGLOBIN A1c (test code = 09453) 11.5 % Teodoro CantuCBC W/AUTO [id number] 00:00:00* Test Item Value Reference Range Interpretation Comme nts WBC (test code = 1001) 6.0 K/UL [...] code = 1015) 202 K/UL COMPREHENSIVE METABOLIC [id number] 00:00:00* Test Item Value Reference Range Interpretation Comme nts GLUCOSE (test code = 2217) 270 MG/DL BUN (test code = 2208) 10 MG/DL CREATININE (test code = 2214) 0.49 MG/DL eGFR AMER. (test cod e = 88044) 150 ML/MIN/1.73 eGFR NON- AMER. (test code = 61220) 129 ML/MIN/1.73 CALC BUN/CREAT (test code = 2235) 20 RATIO SODIUM (test code = 2231) 136 MEQ/L POTASSIUM (test code = 2228) 4.2 MEQ/L CHLORIDE (test code = 2215) 98 MEQ/L CARBON DIOXIDE (test code = 2206) 23 MEQ/L CALCIUM (test code = 2209) 9.7 MG/DL PROTEIN, TOTAL (test code = 2229) 7.5 G/DL ALBUMIN (test code = 2201) 4.9 G/DL CALC GLOBULIN (test code = 2240) 2.6 G/DL CALC A/G RATIO (test code = 2234) 1.9 RATIO BILIRUBIN, TOTAL (test code = 2207) 0.8 MG/DL ALKALINE PHOSPHATASE (test code = 2204) 168 U/L AST (test code = 2218) 12 U/L ALT (test code = 2219) 22 U/L LIPID [id number] 00:00:00* Test Item Value Reference Range Interpretation Comme nts CHOLESTEROL (test code = 2210) 243 MG/DL TRIGLYCERIDES (test code = 2232) 703 MG/DL HDL CHOLESTEROL (test code = 2220) 38 MG/DL CALC LDL CHOL (test code = 2237) (NOTE) MG/DL RISK RATIO LDL/HDL (test cod e = 2238) (NOTE) RATIO HEMOGLOBIN [id number] 00:00:00* Test Item Value Reference Range Interpretation Comme nts HEMOGLOBIN A1c (test code = 51402) 11.5 % CBC W/AUTO [id number] 00:00:00* Test Item Value Reference Range Interpretation Comme nts WBC (test code = 1001) 6.0 K/UL [...] code = 1015) 202 K/UL COMPREHENSIVE METABOLIC [id number] 00:00:00* Test Item Value Reference Range Interpretation Comme nts GLUCOSE (test code = 2217) 270 MG/DL BUN (test code = 2208) 10 MG/DL CREATININE (test code = 2214) 0.49 MG/DL eGFR AMER. (test cod e = 22201) 150 ML/MIN/1.73 eGFR NON- AMER. (test code = 74662) 129 ML/MIN/1.73 CALC BUN/CREAT (test code = 2235) 20 RATIO SODIUM (test code = 2231) 136 MEQ/L POTASSIUM (test code = 2228) 4.2 MEQ/L CHLORIDE (test code = 2215) 98 MEQ/L CARBON DIOXIDE (test code = 2206) 23 MEQ/L CALCIUM (test code = 2209) 9.7 MG/DL PROTEIN, TOTAL (test code = 2229) 7.5 G/DL ALBUMIN (test code = 2201) 4.9 G/DL CALC GLOBULIN (test code = 2240) 2.6 G/DL CALC A/G RATIO (test code = 2234) 1.9 RATIO BILIRUBIN, TOTAL (test code = 2207) 0.8 MG/DL ALKALINE PHOSPHATASE (test code = 2204) 168 U/L AST (test code = 2218) 12 U/L ALT (test code = 2219) 22 U/L LIPID [id number] 00:00:00* Test Item Value Reference Range Interpretation Comme nts CHOLESTEROL (test code = 2210) 243 MG/DL TRIGLYCERIDES (test code = 2232) 703 MG/DL HDL CHOLESTEROL (test code = 2220) 38 MG/DL CALC LDL CHOL (test code = 2237) (NOTE) MG/DL RISK RATIO LDL/HDL (test cod e = 2238) (NOTE) RATIO HEMOGLOBIN [id number] 00:00:00* Test Item Value Reference Range Interpretation Comme nts HEMOGLOBIN A1c (test code = 92138) 11.5 % CBC W/AUTO [id number] 00:00:00* Test Item Value Reference Range Interpretation Comme nts WBC (test code = 1001) 6.0 K/UL [...] COUNT (test code = 1015) 202 K/UL Teodoro CantuCBC W/AUTO [id number] 00:00:00* Test Item Value Reference Range Interpretation Comme nts WBC (test code = 1001) 6.0 K/UL [...] code = 1015) 202 K/UL COMPREHENSIVE METABOLIC [id number] 00:00:00* Test Item Value Reference Range Interpretation Comme nts GLUCOSE (test code = 2217) 270 MG/DL BUN (test code = 2208) 10 MG/DL CREATININE (test code = 2214) 0.49 MG/DL eGFR AMER. (test cod e = 34637) 150 ML/MIN/1.73 eGFR NON- AMER. (test code = 96795) 129 ML/MIN/1.73 CALC BUN/CREAT (test code = 2235) 20 RATIO SODIUM (test code = 2231) 136 MEQ/L POTASSIUM (test code = 2228) 4.2 MEQ/L CHLORIDE (test code = 2215) 98 MEQ/L CARBON DIOXIDE (test code = 2206) 23 MEQ/L CALCIUM (test code = 2209) 9.7 MG/DL PROTEIN, TOTAL (test code = 2229) 7.5 G/DL ALBUMIN (test code = 2201) 4.9 G/DL CALC GLOBULIN (test code = 2240) 2.6 G/DL CALC A/G RATIO (test code = 2234) 1.9 RATIO BILIRUBIN, TOTAL (test code = 2207) 0.8 MG/DL ALKALINE PHOSPHATASE (test code = 2204) 168 U/L AST (test code = 2218) 12 U/L ALT (test code = 2219) 22 U/L CBC W/AUTO [id number] 00:00:00* Test Item Value Reference Range Interpretation Comme nts WBC (test code = 1001) 6.0 K/UL [...] COUNT (test code = 1015) 202 K/UL Teodoro F AustinLIPID [id number] 00:00:00* Test Item Value Reference Range Interpretation Comme nts CHOLESTEROL (test code = 2210) 243 MG/DL TRIGLYCERIDES (test code = 2232) 703 MG/DL HDL CHOLESTEROL (test code = 2220) 38 MG/DL CALC LDL CHOL (test code = 2237) (NOTE) MG/DL RISK RATIO LDL/HDL (test cod e = 2238) (NOTE) RATIO HEMOGLOBIN [id number] 00:00:00* Test Item Value Reference Range Interpretation Comme nts HEMOGLOBIN A1c (test code = 90845) 11.5 % CBC W/AUTO [id number] 00:00:00* Test Item Value Reference Range Interpretation Comme nts WBC (test code = 1001) 6.0 K/UL [...] code = 1015) 202 K/UL COMPREHENSIVE METABOLIC [id number] 00:00:00* Test Item Value Reference Range Interpretation Comme nts GLUCOSE (test code = 2217) 270 MG/DL BUN (test code = 2208) 10 MG/DL CREATININE (test code = 2214) 0.49 MG/DL eGFR AMER. (test cod e = 53929) 150 ML/MIN/1.73 eGFR NON- AMER. (test code = 05059) 129 ML/MIN/1.73 CALC BUN/CREAT (test code = 2235) 20 RATIO SODIUM (test code = 2231) 136 MEQ/L POTASSIUM (test code = 2228) 4.2 MEQ/L CHLORIDE (test code = 2215) 98 MEQ/L CARBON DIOXIDE (test code = 2206) 23 MEQ/L CALCIUM (test code = 2209) 9.7 MG/DL PROTEIN, TOTAL (test code = 2229) 7.5 G/DL ALBUMIN (test code = 2201) 4.9 G/DL CALC GLOBULIN (test code = 2240) 2.6 G/DL CALC A/G RATIO (test code = 2234) 1.9 RATIO BILIRUBIN, TOTAL (test code = 2207) 0.8 MG/DL ALKALINE PHOSPHATASE (test code = 2204) 168 U/L AST (test code = 2218) 12 U/L ALT (test code = 2219) 22 U/L LIPID [id number] 00:00:00* Test Item Value Reference Range Interpretation Comme nts CHOLESTEROL (test code = 2210) 243 MG/DL TRIGLYCERIDES (test code = 2232) 703 MG/DL HDL CHOLESTEROL (test code = 2220) 38 MG/DL CALC LDL CHOL (test code = 2237) (NOTE) MG/DL RISK RATIO LDL/HDL (test cod e = 2238) (NOTE) RATIO HEMOGLOBIN [id number] 00:00:00* Test Item Value Reference Range Interpretation Comme nts HEMOGLOBIN A1c (test code = 62473) 11.5 % CBC W/AUTO [id number] 00:00:00* Test Item Value Reference Range Interpretation Comme nts WBC (test code = 1001) 6.0 K/UL [...] code = 1015) 202 K/UL COMPREHENSIVE METABOLIC [id number] 00:00:00* Test Item Value Reference Range Interpretation Comme nts GLUCOSE (test code = 2217) 270 MG/DL BUN (test code = 2208) 10 MG/DL CREATININE (test code = 2214) 0.49 MG/DL eGFR AMER. (test cod e = 57548) 150 ML/MIN/1.73 eGFR NON- AMER. (test code = 86313) 129 ML/MIN/1.73 CALC BUN/CREAT (test code = 2235) 20 RATIO SODIUM (test code = 2231) 136 MEQ/L POTASSIUM (test code = 2228) 4.2 MEQ/L CHLORIDE (test code = 2215) 98 MEQ/L CARBON DIOXIDE (test code = 2206) 23 MEQ/L CALCIUM (test code = 2209) 9.7 MG/DL PROTEIN, TOTAL (test code = 2229) 7.5 G/DL ALBUMIN (test code = 2201) 4.9 G/DL CALC GLOBULIN (test code = 2240) 2.6 G/DL CALC A/G RATIO (test code = 2234) 1.9 RATIO BILIRUBIN, TOTAL (test code = 2207) 0.8 MG/DL ALKALINE PHOSPHATASE (test code = 2204) 168 U/L AST (test code = 2218) 12 U/L ALT (test code = 2219) 22 U/L LIPID [id number] 00:00:00* Test Item Value Reference Range Interpretation Comme nts CHOLESTEROL (test code = 2210) 243 MG/DL TRIGLYCERIDES (test code = 2232) 703 MG/DL HDL CHOLESTEROL (test code = 2220) 38 MG/DL CALC LDL CHOL (test code = 2237) (NOTE) MG/DL RISK RATIO LDL/HDL (test cod e = 2238) (NOTE) RATIO HEMOGLOBIN [id number] 00:00:00* Test Item Value Reference Range Interpretation Comme nts HEMOGLOBIN A1c (test code = 88827) 11.5 % CBC W/AUTO [id number] 00:00:00* Test Item Value Reference Range Interpretation Comme nts WBC (test code = 1001) 6.0 K/UL [...] code = 1015) 202 K/UL COMPREHENSIVE METABOLIC [id number] 00:00:00* Test Item Value Reference Range Interpretation Comme nts GLUCOSE (test code = 2217) 270 MG/DL BUN (test code = 2208) 10 MG/DL CREATININE (test code = 2214) 0.49 MG/DL eGFR AMER. (test cod e = 17342) 150 ML/MIN/1.73 eGFR NON- AMER. (test code = 79374) 129 ML/MIN/1.73 CALC BUN/CREAT (test code = 2235) 20 RATIO SODIUM (test code = 2231) 136 MEQ/L POTASSIUM (test code = 2228) 4.2 MEQ/L CHLORIDE (test code = 2215) 98 MEQ/L CARBON DIOXIDE (test code = 2206) 23 MEQ/L CALCIUM (test code = 2209) 9.7 MG/DL PROTEIN, TOTAL (test code = 2229) 7.5 G/DL ALBUMIN (test code = 2201) 4.9 G/DL CALC GLOBULIN (test code = 2240) 2.6 G/DL CALC A/G RATIO (test code = 2234) 1.9 RATIO BILIRUBIN, TOTAL (test code = 2207) 0.8 MG/DL ALKALINE PHOSPHATASE (test code = 2204) 168 U/L AST (test code = 2218) 12 U/L ALT (test code = 2219) 22 U/L Teodoro CantuCOMPREHENSIVE METABOLIC [id number] 00:00:00* Test Item Value Reference Range Interpretation Comme nts GLUCOSE (test code = 2217) 270 MG/DL BUN (test code = 2208) 10 MG/DL CREATININE (test code = 2214) 0.49 MG/DL eGFR AMER. (test cod e = 15196) 150 ML/MIN/1.73 eGFR NON- AMER. (test code = 38240) 129 ML/MIN/1.73 CALC BUN/CREAT (test code = 2235) 20 RATIO SODIUM (test code = 2231) 136 MEQ/L POTASSIUM (test code = 2228) 4.2 MEQ/L CHLORIDE (test code = 2215) 98 MEQ/L CARBON DIOXIDE (test code = 2206) 23 MEQ/L CALCIUM (test code = 2209) 9.7 MG/DL PROTEIN, TOTAL (test code = 2229) 7.5 G/DL ALBUMIN (test code = 2201) 4.9 G/DL CALC GLOBULIN (test code = 2240) 2.6 G/DL CALC A/G RATIO (test code = 2234) 1.9 RATIO BILIRUBIN, TOTAL (test code = 2207) 0.8 MG/DL ALKALINE PHOSPHATASE (test code = 2204) 168 U/L AST (test code = 2218) 12 U/L ALT (test code = 2219) 22 U/L LIPID [id number] 00:00:00* Test Item Value Reference Range Interpretation Comme nts CHOLESTEROL (test code = 2210) 243 MG/DL TRIGLYCERIDES (test code = 2232) 703 MG/DL HDL CHOLESTEROL (test code = 2220) 38 MG/DL CALC LDL CHOL (test code = 2237) (NOTE) MG/DL RISK RATIO LDL/HDL (test cod e = 2238) (NOTE) RATIO HEMOGLOBIN [id number] 00:00:00* Test Item Value Reference Range Interpretation Comme nts HEMOGLOBIN A1c (test code = 44003) 11.5 % LIPID [id number] 00:00:00* Test Item Value Reference Range Interpretation Comme nts CHOLESTEROL (test code = 2210) 243 MG/DL TRIGLYCERIDES (test code = 2232) 703 MG/DL HDL CHOLESTEROL (test code = 2220) 38 MG/DL CALC LDL CHOL (test code = 2237) (NOTE) MG/DL RISK RATIO LDL/HDL (test cod e = 2238) (NOTE) RATIO Teodoro CantuHEMOGLOBIN [id number] 00:00:00* Test Item Value Reference Range Interpretation Comme nts HEMOGLOBIN A1c (test code = 24676) 11.5 % Teodoro CantuCBC W/AUTO [id number] 00:00:00* Test Item Value Reference Range Interpretation Comme nts WBC (test code = 1001) 6.0 K/UL [...] COUNT (test code = 1015) 202 K/UL Teodoro Dodge AustinCOMPREHENSIVE METABOLIC [id number] 00:00:00* Test Item Value Reference Range Interpretation Comme nts GLUCOSE (test code = 2217) 270 MG/DL BUN (test code = 2208) 10 MG/DL CREATININE (test code = 2214) 0.49 MG/DL eGFR AMER. (test cod e = 02049) 150 ML/MIN/1.73 eGFR NON- AMER. (test code = 08159) 129 ML/MIN/1.73 CALC BUN/CREAT (test code = 2235) 20 RATIO SODIUM (test code = 2231) 136 MEQ/L POTASSIUM (test code = 2228) 4.2 MEQ/L CHLORIDE (test code = 2215) 98 MEQ/L CARBON DIOXIDE (test code = 2206) 23 MEQ/L CALCIUM (test code = 2209) 9.7 MG/DL PROTEIN, TOTAL (test code = 2229) 7.5 G/DL ALBUMIN (test code = 2201) 4.9 G/DL CALC GLOBULIN (test code = 2240) 2.6 G/DL CALC A/G RATIO (test code = 2234) 1.9 RATIO BILIRUBIN, TOTAL (test code = 2207) 0.8 MG/DL ALKALINE PHOSPHATASE (test code = 2204) 168 U/L AST (test code = 2218) 12 U/L ALT (test code = 2219) 22 U/L Teodoro Dodge AustinCOMPREHENSIVE METABOLIC [id number] 00:00:00* Test Item Value Reference Range Interpretation Comme nts GLUCOSE (test code = 2217) 270 MG/DL BUN (test code = 2208) 10 MG/DL CREATININE (test code = 2214) 0.49 MG/DL eGFR AMER. (test cod e = 61681) 150 ML/MIN/1.73 eGFR NON- AMER. (test code = 88751) 129 ML/MIN/1.73 CALC BUN/CREAT (test code = 2235) 20 RATIO SODIUM (test code = 2231) 136 MEQ/L POTASSIUM (test code = 2228) 4.2 MEQ/L CHLORIDE (test code = 2215) 98 MEQ/L CARBON DIOXIDE (test code = 2206) 23 MEQ/L CALCIUM (test code = 2209) 9.7 MG/DL PROTEIN, TOTAL (test code = 2229) 7.5 G/DL ALBUMIN (test code = 2201) 4.9 G/DL CALC GLOBULIN (test code = 2240) 2.6 G/DL CALC A/G RATIO (test code = 2234) 1.9 RATIO BILIRUBIN, TOTAL (test code = 2207) 0.8 MG/DL ALKALINE PHOSPHATASE (test code = 2204) 168 U/L AST (test code = 2218) 12 U/L ALT (test code = 2219) 22 U/L Teodoro CantuLIPID [id number] 00:00:00* Test Item Value Reference Range Interpretation Comme nts CHOLESTEROL (test code = 2210) 243 MG/DL TRIGLYCERIDES (test code = 2232) 703 MG/DL HDL CHOLESTEROL (test code = 2220) 38 MG/DL CALC LDL CHOL (test code = 2237) (NOTE) MG/DL RISK RATIO LDL/HDL (test cod e = 2238) (NOTE) RATIO Teodoro CantuHEMOGLOBIN [id number] 00:00:00* Test Item Value Reference Range Interpretation Comme nts HEMOGLOBIN A1c (test code = 69159) 11.5 % Teodoro CantuCBC W/AUTO [id number] 00:00:00* Test Item Value Reference Range Interpretation Comme nts WBC (test code = 1001) 6.0 K/UL [...] COUNT (test code = 1015) 202 K/UL Teodoro Echo PepeCOMPREHENSIVE METABOLIC [id number] 00:00:00* Test Item Value Reference Range Interpretation Comme nts GLUCOSE (test code = 2217) 270 MG/DL BUN (test code = 2208) 10 MG/DL CREATININE (test code = 2214) 0.49 MG/DL eGFR AMER. (test cod e = 54460) 150 ML/MIN/1.73 eGFR NON- AMER. (test code = 58235) 129 ML/MIN/1.73 CALC BUN/CREAT (test code = 2235) 20 RATIO SODIUM (test code = 2231) 136 MEQ/L POTASSIUM (test code = 2228) 4.2 MEQ/L CHLORIDE (test code = 2215) 98 MEQ/L CARBON DIOXIDE (test code = 2206) 23 MEQ/L CALCIUM (test code = 2209) 9.7 MG/DL PROTEIN, TOTAL (test code = 2229) 7.5 G/DL ALBUMIN (test code = 2201) 4.9 G/DL CALC GLOBULIN (test code = 2240) 2.6 G/DL CALC A/G RATIO (test code = 2234) 1.9 RATIO BILIRUBIN, TOTAL (test code = 2207) 0.8 MG/DL ALKALINE PHOSPHATASE (test code = 2204) 168 U/L AST (test code = 2218) 12 U/L ALT (test code = 2219) 22 U/L Teodoro Echo PepeLIPID [id number] 00:00:00* Test Item Value Reference Range Interpretation Comme nts CHOLESTEROL (test code = 2210) 243 MG/DL TRIGLYCERIDES (test code = 2232) 703 MG/DL HDL CHOLESTEROL (test code = 2220) 38 MG/DL CALC LDL CHOL (test code = 2237) (NOTE) MG/DL RISK RATIO LDL/HDL (test cod e = 2238) (NOTE) RATIO Teodoro F AustinHEMOGLOBIN [id number] 00:00:00* Test Item Value Reference Range Interpretation Comme nts HEMOGLOBIN A1c (test code = 85391) 11.5 % Teodoro CantuLIPID [id number] 00:00:00* Test Item Value Reference Range Interpretation Comme nts CHOLESTEROL (test code = 2210) 243 MG/DL TRIGLYCERIDES (test code = 2232) 703 MG/DL HDL CHOLESTEROL (test code = 2220) 38 MG/DL CALC LDL CHOL (test code = 2237) (NOTE) MG/DL RISK RATIO LDL/HDL (test cod e = 2238) (NOTE) RATIO Teodoro CantuHEMOGLOBIN [id number] 00:00:00* Test Item Value Reference Range Interpretation Comme nts HEMOGLOBIN A1c (test code = 13900) 11.5 % Teodoro CantuCBC W/AUTO [id number] 00:00:00* Test Item Value Reference Range Interpretation Comme nts WBC (test code = 1001) 6.0 K/UL [...] COUNT (test code = 1015) 202 K/UL Teodoro CantuCOMPREHENSIVE METABOLIC [id number] 00:00:00* Test Item Value Reference Range Interpretation Comme nts GLUCOSE (test code = 2217) 270 MG/DL BUN (test code = 2208) 10 MG/DL CREATININE (test code = 2214) 0.49 MG/DL eGFR AMER. (test cod e = 37200) 150 ML/MIN/1.73 eGFR NON- AMER. (test code = 92703) 129 ML/MIN/1.73 CALC BUN/CREAT (test code = 2235) 20 RATIO SODIUM (test code = 2231) 136 MEQ/L POTASSIUM (test code = 2228) 4.2 MEQ/L CHLORIDE (test code = 2215) 98 MEQ/L CARBON DIOXIDE (test code = 2206) 23 MEQ/L CALCIUM (test code = 2209) 9.7 MG/DL PROTEIN, TOTAL (test code = 2229) 7.5 G/DL ALBUMIN (test code = 2201) 4.9 G/DL CALC GLOBULIN (test code = 2240) 2.6 G/DL CALC A/G RATIO (test code = 2234) 1.9 RATIO BILIRUBIN, TOTAL (test code = 2207) 0.8 MG/DL ALKALINE PHOSPHATASE (test code = 2204) 168 U/L AST (test code = 2218) 12 U/L ALT (test code = 2219) 22 U/L Teodoro Dodge PepeLIPID [id number] 00:00:00* Test Item Value Reference Range Interpretation Comme nts CHOLESTEROL (test code = 2210) 243 MG/DL TRIGLYCERIDES (test code = 2232) 703 MG/DL HDL CHOLESTEROL (test code = 2220) 38 MG/DL CALC LDL CHOL (test code = 2237) (NOTE) MG/DL RISK RATIO LDL/HDL (test cod e = 2238) (NOTE) RATIO Teodoro CantuHEMOGLOBIN [id number] 00:00:00* Test Item Value Reference Range Interpretation Comme nts HEMOGLOBIN A1c (test code = 22754) 11.5 % Teodoro Dodge PepeCBC W/AUTO [id number] 00:00:00* Test Item Value Reference Range Interpretation Comme nts WBC (test code = 1001) 6.0 K/UL [...] COUNT (test code = 1015) 202 K/UL Teodoro Dodge PepeCOMPREHENSIVE METABOLIC [id number] 00:00:00* Test Item Value Reference Range Interpretation Comme nts GLUCOSE (test code = 2217) 270 MG/DL BUN (test code = 2208) 10 MG/DL CREATININE (test code = 2214) 0.49 MG/DL eGFR AMER. (test cod e = 58516) 150 ML/MIN/1.73 eGFR NON- AMER. (test code = 74308) 129 ML/MIN/1.73 CALC BUN/CREAT (test code = 2235) 20 RATIO SODIUM (test code = 2231) 136 MEQ/L POTASSIUM (test code = 2228) 4.2 MEQ/L CHLORIDE (test code = 2215) 98 MEQ/L CARBON DIOXIDE (test code = 2206) 23 MEQ/L CALCIUM (test code = 2209) 9.7 MG/DL PROTEIN, TOTAL (test code = 2229) 7.5 G/DL ALBUMIN (test code = 2201) 4.9 G/DL CALC GLOBULIN (test code = 2240) 2.6 G/DL CALC A/G RATIO (test code = 2234) 1.9 RATIO BILIRUBIN, TOTAL (test code = 2207) 0.8 MG/DL ALKALINE PHOSPHATASE (test code = 2204) 168 U/L AST (test code = 2218) 12 U/L ALT (test code = 2219) 22 U/L Teodoro CantuLIPID [id number] 00:00:00* Test Item Value Reference Range Interpretation Comme nts CHOLESTEROL (test code = 2210) 243 MG/DL TRIGLYCERIDES (test code = 2232) 703 MG/DL HDL CHOLESTEROL (test code = 2220) 38 MG/DL CALC LDL CHOL (test code = 2237) (NOTE) MG/DL RISK RATIO LDL/HDL (test cod e = 2238) (NOTE) RATIO Teodoro Dodge PepeHEMOGLOBIN [id number] 00:00:00* Test Item Value Reference Range Interpretation Comme nts HEMOGLOBIN A1c (test code = 98541) 11.5 % Teodoro Dodge PepeCBC W/AUTO [id number] 00:00:00* Test Item Value Reference Range Interpretation Comme nts WBC (test code = 1001) 6.0 K/UL [...] COUNT (test code = 1015) 202 K/UL Teodoro CantuCOMPREHENSIVE METABOLIC [id number] 00:00:00* Test Item Value Reference Range Interpretation Comme nts GLUCOSE (test code = 2217) 270 MG/DL BUN (test code = 2208) 10 MG/DL CREATININE (test code = 2214) 0.49 MG/DL eGFR AMER. (test cod e = 54023) 150 ML/MIN/1.73 eGFR NON- AMER. (test code = 36006) 129 ML/MIN/1.73 CALC BUN/CREAT (test code = 2235) 20 RATIO SODIUM (test code = 2231) 136 MEQ/L POTASSIUM (test code = 2228) 4.2 MEQ/L CHLORIDE (test code = 2215) 98 MEQ/L CARBON DIOXIDE (test code = 2206) 23 MEQ/L CALCIUM (test code = 2209) 9.7 MG/DL PROTEIN, TOTAL (test code = 2229) 7.5 G/DL ALBUMIN (test code = 2201) 4.9 G/DL CALC GLOBULIN (test code = 2240) 2.6 G/DL CALC A/G RATIO (test code = 2234) 1.9 RATIO BILIRUBIN, TOTAL (test code = 2207) 0.8 MG/DL ALKALINE PHOSPHATASE (test code = 2204) 168 U/L AST (test code = 2218) 12 U/L ALT (test code = 2219) 22 U/L Teodoro CantuLIPID [id number] 00:00:00* Test Item Value Reference Range Interpretation Comme nts CHOLESTEROL (test code = 2210) 243 MG/DL TRIGLYCERIDES (test code = 2232) 703 MG/DL HDL CHOLESTEROL (test code = 2220) 38 MG/DL CALC LDL CHOL (test code = 2237) (NOTE) MG/DL RISK RATIO LDL/HDL (test cod e = 2238) (NOTE) RATIO Teodoro CantuHEMOGLOBIN [id number] 00:00:00* Test Item Value Reference Range Interpretation Comme bria HEMOGLOBIN A1c (test code = 66305) 11.5 % Teodoro CantuCBC W/AUTO [id number] 00:00:00* Test Item Value Reference Range Interpretation Comme nts WBC (test code = 1001) 6.0 K/UL [...] COUNT (test code = 1015) 202 K/UL Teodoro CantuCOMPREHENSIVE METABOLIC [id number] 00:00:00* Test Item Value Reference Range Interpretation Comme nts GLUCOSE (test code = 2217) 270 MG/DL BUN (test code = 2208) 10 MG/DL CREATININE (test code = 2214) 0.49 MG/DL eGFR AMER. (test cod e = 99528) 150 ML/MIN/1.73 eGFR NON- AMER. (test code = 11402) 129 ML/MIN/1.73 CALC BUN/CREAT (test code = 2235) 20 RATIO SODIUM (test code = 2231) 136 MEQ/L POTASSIUM (test code = 2228) 4.2 MEQ/L CHLORIDE (test code = 2215) 98 MEQ/L CARBON DIOXIDE (test code = 2206) 23 MEQ/L CALCIUM (test code = 2209) 9.7 MG/DL PROTEIN, TOTAL (test code = 2229) 7.5 G/DL ALBUMIN (test code = 2201) 4.9 G/DL CALC GLOBULIN (test code = 2240) 2.6 G/DL CALC A/G RATIO (test code = 2234) 1.9 RATIO BILIRUBIN, TOTAL (test code = 2207) 0.8 MG/DL ALKALINE PHOSPHATASE (test code = 2204) 168 U/L AST (test code = 2218) 12 U/L ALT (test code = 2219) 22 U/L Teod[facility] Dodge PepeLIPID [id number] 00:00:00* Test Item Value Reference Range Interpretation Comme nts CHOLESTEROL (test code = 2210) 243 MG/DL TRIGLYCERIDES (test code = 2232) 703 MG/DL HDL CHOLESTEROL (test code = 2220) 38 MG/DL CALC LDL CHOL (test code = 2237) (NOTE) MG/DL RISK RATIO LDL/HDL (test cod e = 2238) (NOTE) RATIO Teodoro Echo PepeHEMOGLOBIN [id number] 00:00:00* Test Item Value Reference Range Interpretation Comme nts HEMOGLOBIN A1c (test code = 29540) 11.5 % Teodoro Dodge PepeCBC W/AUTO [id number] 00:00:00* Test Item Value Reference Range Interpretation Comme nts WBC (test code = 1001) 6.0 K/UL [...] COUNT (test code = 1015) 202 K/UL Teodoro CantuCOMPREHENSIVE METABOLIC [id number] 00:00:00* Test Item Value Reference Range Interpretation Comme nts GLUCOSE (test code = 2217) 270 MG/DL BUN (test code = 2208) 10 MG/DL CREATININE (test code = 2214) 0.49 MG/DL eGFR AMER. (test cod e = 08921) 150 ML/MIN/1.73 eGFR NON- AMER. (test code = 49602) 129 ML/MIN/1.73 CALC BUN/CREAT (test code = 2235) 20 RATIO SODIUM (test code = 2231) 136 MEQ/L POTASSIUM (test code = 2228) 4.2 MEQ/L CHLORIDE (test code = 2215) 98 MEQ/L CARBON DIOXIDE (test code = 2206) 23 MEQ/L CALCIUM (test code = 2209) 9.7 MG/DL PROTEIN, TOTAL (test code = 2229) 7.5 G/DL ALBUMIN (test code = 2201) 4.9 G/DL CALC GLOBULIN (test code = 2240) 2.6 G/DL CALC A/G RATIO (test code = 2234) 1.9 RATIO BILIRUBIN, TOTAL (test code = 2207) 0.8 MG/DL ALKALINE PHOSPHATASE (test code = 2204) 168 U/L AST (test code = 2218) 12 U/L ALT (test code = 2219) 22 U/L Teodoro CantuLIPID [id number] 00:00:00* Test Item Value Reference Range Interpretation Comme nts CHOLESTEROL (test code = 2210) 243 MG/DL TRIGLYCERIDES (test code = 2232) 703 MG/DL HDL CHOLESTEROL (test code = 2220) 38 MG/DL CALC LDL CHOL (test code = 2237) (NOTE) MG/DL RISK RATIO LDL/HDL (test cod e = 2238) (NOTE) RATIO Teodoro CantuHEMOGLOBIN [id number] 00:00:00* Test Item Value Reference Range Interpretation Comme nts HEMOGLOBIN A1c (test code = 11176) 11.5 % Teodoro CantuCBC W/AUTO [id number] 00:00:00* Test Item Value Reference Range Interpretation Comme nts WBC (test code = 1001) 6.0 K/UL [...] COUNT (test code = 1015) 202 K/UL Teodoro Dodge PepeCOMPREHENSIVE METABOLIC [id number] 00:00:00* Test Item Value Reference Range Interpretation Comme nts GLUCOSE (test code = 2217) 270 MG/DL BUN (test code = 2208) 10 MG/DL CREATININE (test code = 2214) 0.49 MG/DL eGFR AMER. (test cod e = 77980) 150 ML/MIN/1.73 eGFR NON- AMER. (test code = 83252) 129 ML/MIN/1.73 CALC BUN/CREAT (test code = 2235) 20 RATIO SODIUM (test code = 2231) 136 MEQ/L POTASSIUM (test code = 2228) 4.2 MEQ/L CHLORIDE (test code = 2215) 98 MEQ/L CARBON DIOXIDE (test code = 2206) 23 MEQ/L CALCIUM (test code = 2209) 9.7 MG/DL PROTEIN, TOTAL (test code = 2229) 7.5 G/DL ALBUMIN (test code = 2201) 4.9 G/DL CALC GLOBULIN (test code = 2240) 2.6 G/DL CALC A/G RATIO (test code = 2234) 1.9 RATIO BILIRUBIN, TOTAL (test code = 2207) 0.8 MG/DL ALKALINE PHOSPHATASE (test code = 2204) 168 U/L AST (test code = 2218) 12 U/L ALT (test code = 2219) 22 U/L Teodoro Dodge AustinLIPID [id number] 00:00:00* Test Item Value Reference Range Interpretation Comme nts CHOLESTEROL (test code = 2210) 243 MG/DL TRIGLYCERIDES (test code = 2232) 703 MG/DL HDL CHOLESTEROL (test code = 2220) 38 MG/DL CALC LDL CHOL (test code = 2237) (NOTE) MG/DL RISK RATIO LDL/HDL (test cod e = 2238) (NOTE) RATIO Teodoro CantuHEMOGLOBIN [id number] 00:00:00* Test Item Value Reference Range Interpretation Comme nts HEMOGLOBIN A1c (test code = 08354) 11.5 % Teodoro Cantu Notes Date/Time Note Provider Source Teodoro Gonzalez [facility]2025-02-25 00:00:00 Teodoro Gonzalez [facility]2025-02-17 00:00:00 [facility] [facility]2025-01-06 00:00:00 [facility]2024-12-16 00:00:00 [facility]2024-12-05 00:00:00 [facility]2024-11-11 00:00:00 [facility]2024-11-06 00:00:00 [place] [facility]24-10-19 14:17:35 No call noted. Encounter closed. Lena Hurtado [facility]2024-10-18 16:48:33 Shin Mcnamara is a 54 year old male that is returning the clinic's call. Please advise. [id number]00 [facility]2024-09-30 00:00:00 [facility]2024-09-24 00:00:00 [facility]
[2025-04-20 10:38] LABS: PT Prothrombin Time 12.2 SECONDS (10-13.0); Protime INR 1.07
[2025-04-20 10:53] LABS: Albumin 3.8 g/dL (3.4-5.0); Albumin/Globulin Ratio 1.2 (1.1-1.8); Bilirubin Direct 0.2 mg/dL (0-0.2); Bilirubin Indirect, Calculated 0.5 mg/dL (0.2-0.8); Bilirubin Total 0.7 mg/dL (0.2-1.0); Globulin 3.2 g/dL (2.3-3.5); Troponin High Sensitivity 3.7 pg/mL (<58.9)
--- NOTE | 2025-04-20 11:00 | RAD REPORT ---
Procedure: Chest Single View HISTORY: Chest pain COMPARISON: 2021 FINDINGS: The lungs appear clear of acute infiltrate. No significant pleural effusion noted. The heart is mildly enlarged. IMPRESSION: No acute abnormality is displayed.
--- NOTE | 2025-04-20 13:29 | EDPHYS ---
Physician Documentation [facility] Name: Shin Mcnamara Age: 54 yrs Sex: Male : 1970 Arrival Date: 04/20/2025 Time: 10:01 Bed 16 Private MD: ED Physician Pat Magdaleno HPI: 04/20 13:22 This 54 yrs old Male presents to ER via Ambulatory with complaints of Chest sp3 Pressure, Abnormal Lab Results. 13:22 54-year-old male with history of diabetes, hyperlipidemia, prior CVA sent by PCP for sp3 episodic chest pain and reports of an abnormal EKG and the clinic. Patient does not have that EKG with him. Patient still has chest pain but is milder than it was earlier. He denies any other symptoms including neck pain, shortness of breath, abdominal pain, vomiting, diarrhea, syncope, known sick contacts, travel history, prolonged immobilization, prior DVT or PE, or any other signs or symptoms on ROS at this time.. Historical: - Allergies: 10:14 No Known Allergies; ll1 - PMHx: 10:14 Diabetes - NIDDM; Hypercholesterolemia; ll1 - PSHx: 10:14 Cholecystectomy; ll1 - Immunization history:: Adult Immunizations up to date. - Infectious Disease History:: Denies. - Social history:: Smoking status: Patient denies any tobacco usage or history of. ROS: 13:24 Constitutional: Negative for fever, chills, and weight loss, Eyes: Negative for injury, sp3 pain, redness, and discharge, Neck: Negative for injury, pain, and swelling, Respiratory: Negative for shortness of breath, cough, wheezing, and pleuritic chest pain, Abdomen/GI: Negative for abdominal pain, nausea, vomiting, diarrhea, and constipation, Back: Negative for injury and pain, MS/Extremity: Negative for injury and deformity, Skin: Negative for injury, rash, and discoloration, Neuro: Negative for headache, weakness, numbness, tingling, and seizure, Psych: Negative for depression, anxiety, suicide ideation, homicidal ideation, and hallucinations, Allergy/Immunology: Negative for hives, rash, and allergies, Endocrine: Negative for neck swelling, polydipsia, polyuria, polyphagia, and marked weight changes, 13:24 All other systems are negative, Exam: 13:27 Constitutional: This is a well developed, well nourished patient who is awake, alert, sp3 and in no acute distress. Head/Face: Normocephalic, atraumatic. Eyes: Pupils equal round and reactive to light, extra-ocular motions intact. Lids and lashes normal. Conjunctiva and sclera are non-icteric and not injected. Cornea within normal limits. Periorbital areas with no swelling, redness, or edema. ENT: Nares patent. No nasal discharge, no septal abnormalities noted. External auditory canals are clear. Oropharynx with no redness, swelling, or masses, exudates, or evidence of obstruction, uvula midline. Mucous membranes moist. Neck: Trachea midline, no thyromegaly or masses palpated, and no cervical lymphadenopathy. Supple, full range of motion without nuchal rigidity, or vertebral point tenderness. No Meningismus. Chest/axilla: Normal chest wall appearance and motion. Nontender with no deformity. No lesions are appreciated. Cardiovascular: Regular rate and rhythm with a normal S1 and S2. No gallops, murmurs, or rubs. Normal PMI, no JVD. No pulse deficits. Respiratory: Lungs have equal breath sounds bilaterally, clear to auscultation and percussion. No rales, rhonchi or wheezes noted. No increased work of breathing, no retractions or nasal flaring. Abdomen/GI: Soft, non-tender, with normal bowel sounds. No distension or tympany. No guarding or rebound. No evidence of tenderness throughout. Back: No spinal tenderness. No costovertebral tenderness. Full range of motion. MS/ Extremity: Pulses equal, no cyanosis. Neurovascular intact. Full, normal range of motion. Neuro: Awake and alert, GCS 15, oriented to person, place, time, and situation. Cranial nerves II-XII grossly intact. Motor strength 5/5 in all extremities. Sensory grossly intact. Cerebellar exam normal. Normal gait. Psych: Awake, alert, with orientation to person, place and time. Behavior, mood, and affect are within normal limits. 13:27 ECG was reviewed by the Attending Physician. EKG demonstrates normal sinus rhythm at 95 bpm with normal intervals, normal QRS, normal axis, nonspecific ST/T changes with inverted T waves laterally in isolated lead III. Vital Signs: 10:14 BP 140 / 82; Pulse 95; Resp 18; Temp 97; Pulse Ox 99% ; Weight 124.28 kg; Height 5 ft. ll1 5 in. ; Pain 6/10; 12:21 BP 120 / 83; Pulse 65; Resp 16; Pulse Ox 95% ; bp 14:00 BP 135 / 87; Pulse 102; Resp 20; Pulse Ox 100% ; kj2 10:14 Body Mass Index 45.60 (124.28 kg, 165.1 cm) ll1 10:14 Pain Scale: Adult ll1 MDM: 10:08 Medical Screening Exam initiated sp3 13:27 Data reviewed: vital signs, nurses notes, lab test result(s), EKG, radiologic studies. sp3 ED course: 54-year-old male with PMH above now with recurrent chest pain. Will place patient in 23 observation due to moderate to high risk due to his PMH. Initial troponin negative. Discussed with medicine. Differential diagnosis includes musculoskeletal chest pain, acute coronary syndrome, GI pathology, among others. Not highly suspicious of PE or TAD.. 04/20 10:16 Order name: Basic Metabolic Panel; Complete Time: 11:52 3 04/20 10:16 Order name: CBC with Diff; Complete Time: 11:52 3 04/20 10:16 Order name: LFT's; Complete Time: 11:52 3 04/20 10:16 Order name: Magnesium; Complete Time: 11:52 3 04/20 10:16 Order name: NT PRO-BNP; Complete Time: 11:52 3 04/20 10:16 Order name: PT-INR; Complete Time: 11:52 3 04/20 10:16 Order name: Troponin HS; Complete Time: 11:52 3 04/20 14:08 Order name: Basic Metabolic Panel EDMS 04/20 14:08 Order name: Basic Metabolic Panel EDMS 04/20 14:08 Order name: Basic Metabolic Panel EDMS 04/20 14:08 Order name: Basic Metabolic Panel EDMS 04/20 14:08 Order name: CBC with Automated Diff EDMS 04/20 14:08 Order name: CBC with Automated Diff EDMS 04/20 14:08 Order name: CBC with Automated Diff EDMS 04/20 14:08 Order name: CBC with Automated Diff EDMS 04/20 14:08 Order name: Hemoglobin A1c EDMS 04/20 14:08 Order name: Hemoglobin A1c EDMS 04/20 14:08 Order name: Lipid Profile EDMS 04/20 14:08 Order name: Lipid Profile EDMS 04/20 14:08 Order name: Magnesium EDMS 04/20 14:08 Order name: Magnesium EDMS 04/20 14:08 Order name: Magnesium EDMS 04/20 14:08 Order name: Magnesium EDMS 04/20 14:08 Order name: Phosphorus EDMS 04/20 14:08 Order name: Phosphorus EDMS 04/20 14:08 Order name: Phosphorus EDMS 04/20 14:08 Order name: Phosphorus EDMS 04/20 14:08 Order name: T4 Free EDMS 04/20 14:08 Order name: T4 Free EDMS 04/20 14:08 Order name: Thyroid Stimulating Hormone EDMS 04/20 14:08 Order name: Thyroid Stimulating Hormone EDMS 04/20 14:08 Order name: Troponin High Sensitivity EDMS 04/20 14:08 Order name: Troponin High Sensitivity EDMS 04/20 14:08 Order name: Troponin High Sensitivity EDMS 04/20 10:16 Order name: XRAY Chest (1 view); Complete Time: 11:52 sp3 04/20 14:08 Order name: Echo with Doppler EDMS 04/20 10:16 Order name: Cardiac monitoring; Complete Time: 10:26 sp3 04/20 10:16 Order name: EKG - Nurse/Tech; Complete Time: 10:26 sp3 04/20 10:16 Order name: IV Saline Lock; Complete Time: 10:26 sp3 04/20 10:16 Order name: Labs collected and sent; Complete Time: 10:26 sp3 04/20 10:16 Order name: O2 Per Protocol; Complete Time: 10:26 sp3 04/20 10:16 Order name: O2 Sat Monitoring; Complete Time: 10:26 sp3 Administered Medications: No medications were administered Disposition Summary: 04/20/25 13:28 Hospitalization Ordered Notes: Hospitalization Status: Observation sp3 Provider: Benedict Acevedo sp3 Location: Telemetry/MedSurg (observation) sp3 Condition: Stable sp3 Problem: an acute exacerbation sp3 Symptoms: have worsened sp3 Bed/Room Type: Standard sp3 Room Assignment: 217(04/20/25 14:27) bd Diagnosis - Chest pain sp3 Forms: - Medication Reconciliation Form sp3 - SBAR form sp3 - Leadership Thank You Letter sp3 Signatures: Dispatcher [employer] EDMS Debi Pozo bd Stevie Ceballos, RN RN ll1 Pat Magdaleno MD MD sp3 Meggan Hatch, ARAMIS RN kj2 Corrections: (The following items were deleted from the chart) 10:17 10:17 BASIC METABOLIC PANEL+C.LAB.BRZ ordered. EDMS EDMS 10:17 10:17 CBC+H.LAB.BRZ ordered. EDMS EDMS 10:17 10:17 HEPATIC FUNCTION+C.LAB.BRZ ordered. EDMS EDMS 10:17 10:17 MAGNESIUM+C.LAB.BRZ ordered. EDMS EDMS 10:17 10:17 PROBNP+C.LAB.BRZ ordered. EDMS EDMS 10:17 10:17 PROTIME (+INR)+COAG.LAB.BRZ ordered. EDMS EDMS 10:17 10:17 Troponin High Sensitivity+C.LAB.BRZ ordered. EDMS EDMS 10:17 10:17 Chest Single View+RAD.RAD.BRZ ordered. EDMS EDMS 14:27 13:28 sp3 bd
--- NOTE | 2025-04-20 13:29 | ER ---
Nurse's Notes [facility] Name: Shin Mcnamara Age: 54 yrs Sex: Male : 1970 Arrival Date: 04/20/2025 Time: 10:01 Bed 16 Private MD: Diagnosis: Chest pain Presentation: 04/20 10:14 Chief complaint: Patient states: Chest pressure for 3 days. "Abnormal EKG" at PCP 1 Phil's office today, sent in for further evaluation. SOB at times, + leg swelling. Coronavirus screen: Client denies travel out of the [place] in the last 14 days. At this time, the client does not indicate any symptoms associated with coronavirus-19. Ebola Screen: Patient denies travel to an Ebola-affected area in the 21 days before illness onset. Initial Sepsis Screen: Does the patient meet any 2 criteria? No. Patient's initial sepsis screen is negative. Does the patient have a suspected source of infection? No. Patient's initial sepsis screen is negative. Risk Assessment: Do you want to hurt yourself or someone else? Patient reports no desire to harm self or others. Onset of symptoms was April 18, 2025. 10:14 Method Of Arrival: Ambulatory [facility] 10:14 Acuity: HILDA 3 ll1 Triage Assessment: 10:15 General: Appears in no apparent distress. comfortable, Behavior is calm, cooperative, bp appropriate for age. Pain: Complains of pain in chest. EENT: No deficits noted. Neuro: No deficits noted. Cardiovascular: Rhythm is sinus rhythm. Respiratory: No deficits noted. GI: No signs and/or symptoms were reported involving the gastrointestinal system. : No signs and/or symptoms were reported regarding the genitourinary system. Derm: No deficits noted. Musculoskeletal: No deficits noted. Historical: - Allergies: 10:14 No Known Allergies; ll1 - PMHx: 10:14 Diabetes - NIDDM; Hypercholesterolemia; ll1 - PSHx: 10:14 Cholecystectomy; ll1 - Immunization history:: Adult Immunizations up to date. - Infectious Disease History:: Denies. - Social history:: Smoking status: Patient denies any tobacco usage or history of. Screenin:15 [facility] ED Fall Risk Assessment (Adult) History of falling in the last 3 months, bp including since admission No falls in past 3 months (0 pts) Confusion or Disorientation No (0 pts) Intoxicated or Sedated No (0 pts) Impaired Gait No (0 pts) Mobility Assist Device Used No (0 pt) Altered Elimination No (0 pt) Score/Fall Risk Level 0 - 2 = Low Risk Oriented to surroundings. Abuse screen: Denies threats or abuse. Denies injuries from another. Nutritional screening: No deficits noted. Tuberculosis screening: No symptoms or risk factors identified. Assessment: 10:15 General: Appears in no apparent distress. comfortable, Behavior is appropriate for age. bp 14:00 Reassessment: Patient appears in no apparent distress at this time. Patient and/or kj2 family updated on plan of care and expected duration. Pain level reassessed. Patient is alert, oriented x 3, equal unlabored respirations, skin warm/dry/pink. 14:00 Pain: Pain began gradually. kj2 14:56 Reassessment: Patient appears in no apparent distress at this time. Patient and/or kj2 family updated on plan of care and expected duration. Pain level reassessed. Patient is alert, oriented x 3, equal unlabored respirations, skin warm/dry/pink. 16:35 Pain: Denies pain. kj2 Vital Signs: 10:14 BP 140 / 82; Pulse 95; Resp 18; Temp 97; Pulse Ox 99% ; Weight 124.28 kg; Height 5 ft. ll1 5 in. ; Pain 6/10; 12:21 BP 120 / 83; Pulse 65; Resp 16; Pulse Ox 95% ; bp 14:00 BP 135 / 87; Pulse 102; Resp 20; Pulse Ox 100% ; kj2 10:14 Body Mass Index 45.60 (124.28 kg, 165.1 cm) ll1 10:14 Pain Scale: Adult ll1 ED Course: 10:07 Patient arrived in ED. gl 10:07 Pat Magdaleno MD is Attending Physician. sp3 10:14 Arm band placed on Patient placed in an exam room, on a stretcher. ll1 10:15 Patient has correct armband on for positive identification. Client placed on continuous bp cardiac and pulse oximetry monitoring. NIBP monitoring applied. conveyor monitor on. Pulse ox on. NIBP on. 10:15 Patient maintains SpO2 saturation greater than 95% on room air. bp 10:17 Triage completed. ll1 10:23 Nehemiah Bragg, RN is Primary Nurse. bp 10:26 Basic Metabolic Panel Sent. bc6 10:26 CBC with Diff Sent. bc6 10:26 LFT's Sent. bc6 10:26 Magnesium Sent. bc6 10:26 NT PRO-BNP Sent. bc6 10:26 PT-INR Sent. bc6 10:26 Troponin HS Sent. bc6 10:26 Initial lab(s) drawn, by me, sent to lab. EKG done, by ED staff, reviewed by Pat Magdaleno MD. Inserted saline lock: 20 gauge in right antecubital area, using aseptic technique. Blood collected. Flushed with 10 mL NS. 10:48 XRAY Chest (1 view) In Process Unspecified. EDMS 13:28 Benedict Acevedo MD is Hospitalizing Provider. sp3 14:58 No provider procedures requiring assistance completed. kj2 16:36 Provided Education on: need for admit. kj2 16:37 Patient admitted, IV remains in place. kj2 Administered Medications: No medications were administered Medication: 16:35 VIS not applicable for this client. kj2 Outcome: 13:28 Decision to Hospitalize by Provider. sp3 16:37 Condition: stable kj2 16:37 Admitted to Med/surg accompanied by tech, via wheelchair, kj2 16:38 Instructed on the need for admit, kj2 16:39 Patient left the ED. kj2 Signatures: Dispatcher [employer] EDMS Nehemiah Bragg, RN RN Stevie Oropeza RN RN ll1 Pat Magdaleno MD MD sp3 Leana Clinton6 Meggan Hatch RN RN kj2 Yesenia Johnson, Reg Reg gl Corrections: (The following items were deleted from the chart) 16:38 16:37 Discharged to home ambulatory, kj2 kj2 16:38 16:37 Discharge instructions given to patient, Instructed on discharge instructions, kj2 follow up and referral plans. Demonstrated understanding of instructions, follow-up care, kj2
[2025-04-20] MEDS ORDERED: ACETAMINOPHEN 325 MG TABLET PO PRN (13:53)
--- NOTE | 2025-04-20 14:13 | P.HP ---
Certification for Inpatient Patient admitted to: Observation With expected LOS: <2 Midnights Patient will require the following post-hospital care: None Practitioner: I am a practitioner with admitting privileges, knowledge of patient current condition, hospital course, and medical plan of care. Services: Services provided to patient in accordance with Admission requirements found in Title 42 Section 412.3 of the Code of Federal Regulations <Estephania Alvarez - Last Filed: 04/20/25 15:03> Patient History Date of Service: 04/20/25 Reason for admission: Chest pain R/O History of Present Illness: Shin Mcnamara is a 54 year old male with pmhx diabetes, hyperlipidemia, prior CVA, and HTN who presents to the ED with chest pressure radiating to the left arm. He reports no heart history but endorses orthopnea and is SOB when squating. 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 He reports going to his PCP office having chest pressure when they performed an EKG and sent him to the ED. Laboratory evaluation is largely unremarkable. Chest xray reports "No acute abnormality is displayed." Shin will be admitted to hospitalist service for further evaluation of chest pressure r/o. - Past Medical/Surgical History -: Diabetes mellitus-NIDDM -: Hypertension -: Hyperlipidemia -: CVA -: Cholecystectomy - Family History other -: Heart disease Notes: Grandmother heart attack - Social History Smoking Status: Never smoker Alcohol use: No CD- Drugs: No <Estephania Alvarez - Last Filed: 04/20/25 15:03> Date of Service: 04/20/25 <Benedict Acevedo - Last Filed: 04/20/25 16:47> Allergies No Known Allergies Allergy (Unverified 06/22/18 16:25) Review of Systems Other: per HPI <Estephania Alvarez - Last Filed: 04/20/25 15:03> Physical Examination - Physical Exam General: Alert, In no apparent distress, Oriented x3 HEENT: Atraumatic, Normocephalic Neck: Supple, 2+ carotid pulse no bruit Respiratory: Clear to auscultation bilaterally, Normal air movement Cardiovascular: Normal pulses, Regular rate/rhythm, Normal S1 S2 Capillary refill: <2 Seconds Gastrointestinal: Normal bowel sounds, Soft and benign Musculoskeletal: No clubbing Integumentary: No rashes Neurological: Normal speech, Normal tone - Studies Laboratory Data (last 24 hrs) 04/20/25 04/20/25 04/20/25: 10: 10:25 WBC 5.30 Hgb 13.8 Hct 41.2 Plt Count 151 L PT 12.2 INR 1.07 Sodium 140 Potassium 4.0 BUN 16 Creatinine 0.78 Glucose 148 H Magnesium 2.0 Total Bilirubin 0.7 AST 13 L ALT 30 Alkaline Phosphatase 136 H <Estephania Alvarez - Last Filed: 04/20/25 15:03> - Studies Laboratory Data (last 24 hrs) 04/20/25 04/20/25 04/20/25: 10: 10:25 WBC 5.30 Hgb 13.8 Hct 41.2 Plt Count 151 L PT 12.2 INR 1.07 Sodium 140 Potassium 4.0 BUN 16 Creatinine 0.78 Glucose 148 H Magnesium 2.0 Total Bilirubin 0.7 AST 13 L ALT 30 Alkaline Phosphatase 136 H <Benedict Acevedo - Last Filed: 04/20/25 16:47> Assessment and Plan - Plan Assessment and plan Chest Pain associated with SOB r/o ACS - EKG: No obvious ST segment changes - Troponin negative , Serial pending - Ordered transthoracic echocardiogram - chest x-ray with no acute findings - Consult Cardiology - recommendations appreciated - S/P aspirin 324 mg PO x 1 - Start daily baby aspirin and statin - Symptom control with PRN acetaminophen, nitroglycerin, morphine - continuous telemetry - TSH/FreeT4, A1C, lipid panel pending Diabetes Mellitus -accucheck with SSI -A1C in the AM -Serum glucose 148 Hyperlipidemia CVA HTN -Continue home medications DVT ppx weight based lovenox Full code LOS 24 hour OBS Discharge Plan: Home Plan to discharge in: 24 Hours - Advance Directives Does patient have a Living Will: No Does patient have a Durable POA for Healthcare: No <Estephania Alvarez - Last Filed: 04/20/25 15:03> Physician Review: Patient Assessed, Agree with Above Assessment and Plan <Benedict Acevedo - Last Filed: 04/20/25 16:47>
[2025-04-20] MEDS ORDERED: D50W 25 GM/50 ML SYRINGE IV PRN (15:06)
[2025-04-20] MEDS ORDERED: GLUCAGON 1 MG/VIAL IV PRN (15:06)
[2025-04-20] MEDS: ASPIRIN 325 MG TAB PO ONE (15:10)
[2025-04-20] MEDS ORDERED: ASPIRIN 325 MG TAB ONE (16:17)
[2025-04-20] MEDS: INSULIN REGULAR (HUMAN) 100 UNIT/ML SQ SCH (16:30)
[2025-04-20 17:04] VITALS: O2SAT 100
[2025-04-20] MEDS: ATORVASTATIN 40 MG TAB PO SCH (20:20)
[2025-04-20] MEDS: FUROSEMIDE 40 MG/4 ML VIAL IV SCH (20:20)
[2025-04-20] MEDS: Enoxaparin 120 MG/0.8 ML SYR SQ SCH (20:20)
[2025-04-20] MEDS: METOPROLOL TAR 25 MG TAB PO ONE (22:05)
[2025-04-20 23:04] LABS: Anion Gap 6.8 mEq/L (5.0-15.0); Potassium 3.8 mEq/L (3.5-5.1)
[2025-04-20 23:05] LABS: Magnesium 1.9 mg/dL (1.6-2.4)
[2025-04-21] MEDS: METOPROLOL TAR 25 MG TAB PO SCH (05:27)
[2025-04-21 05:58] VITALS: BMI 43.9
[2025-04-21 06:00] VITALS: TEMP 97.5
[2025-04-21 06:49] LABS: Absolute Eosinophils 0.1 K/uL (0-0.5); Absolute Monocytes 0.5 K/uL (0.1-1.3); Absolute Neutrophil 3.4 K/uL (1.8-8.0); Basophils % 0.4 % (0-1.3); Eosinophils % 1.8 % (0-4.4); Hematocrit 44.8 % (39.6-49.0); Hemoglobin 14.8 g/dL (13.6-17.9); Lymphocytes % 33.1 % (15.3-44.8); MCV 78.7 fL (80-100); MPV 9.3 fL (7.6-11.3); Monocytes % 8.6 % (3.3-12.3); Neutrophils % 56.1 % (41.7-73.7); Nucleated Red Blood Cells % 0.2 % (0-0); Platelets 158 thou/uL (152-406); RBC Red Blood Cell Count 5.69 M/uL (4.33-5.43)
[2025-04-21 07:27] LABS: Anion Gap 11.9 mEq/L (5.0-15.0); Magnesium 2.2 mg/dL (1.6-2.4); Potassium 3.9 mEq/L (3.5-5.1); Thyroid Stimulating Hormone 1.15 uIU/mL (0.358-3.740); Troponin High Sensitivity 3.9 pg/mL (<58.9)
[2025-04-21] MEDS: ASPIRIN EC 81 MG TAB PO SCH (08:38)
[2025-04-21] MEDS ORDERED: ENOXAPARIN 40 MG/0.4 ML SQ SCH (09:00)
[2025-04-21 14:15] VITALS: BP 125/65
--- NOTE | 2025-04-21 15:02 | P.DS ---
Admission Date: 04/20/25 Discharge Date: 04/21/25 Disposition: ROUTINE DISCHARGE Discharge Condition: GOOD Reason for Admission: Chest pain R/O Hospital Course: Chest Pain r/o ACS - Troponin negative - transthoracic echocardiogram report pending, as per cardiology echo looks good - chest x-ray with no acute findings - Consulted Cardiology - recommendations appreciated, cleared to discharge, recommending outpatient follow-up Diabetes Mellitus - Continue home meds Hyperlipidemia CVA HTN -Continue home medications Hospital course: 54-year-old patient admitted with chest pain, troponins negative, chest x-ray negative, cardiology was consulted, he had an echo done, as per cardiology echo looks good, they recommended to discharge him and outpatient follow-up, cardiology recommended to discharge him on oral Lasix, When I see the patient this morning he is doing well without any acute problems, he feels ready to go home, otherwise no other acute issues going on so I am planning to discharge him to go home, follow-up with PCP and cardiology. Subjective: No chest pain or shortness of breath. No nausea or vomiting. No abdominal pain. No obvious bleeding. Looks comfortable in the bed. Objective: General appearance: Alert and comfortable CVS: Normal S1 and S2 Lungs: Clear to auscultation bilaterally Abdomen: Soft, bowel sounds present, no tenderness Extremities: No lower extremity edema Vital Signs/Physical Exam: Temp Pulse Resp BP Pulse Ox 97.5 F 98 H 18 125/65 100 04/21/25 12:00 04/21/25 12:00 04/21/25 12:00 04/21/25 12:00 04/21/25 12:00 Laboratory Data at Discharge: WBC 6.00 thou/uL (4.3-10.9) 04/21/25 06:16 Hgb 14.8 g/dL (13.6-17.9) 04/21/25 06:16 Hct 44.8 % (39.6-49.0) 04/21/25 06:16 Plt Count 158 thou/uL (152-406) 04/21/25 06:16 PT 12.2 SECONDS (10-13.0) 04/20/25 10:25 INR 1.07 04/20/25 10:25 Sodium 140 mEq/L (136-145) 04/21/25 06:16 Potassium 3.9 mEq/L (3.5-5.1) 04/21/25 06:16 BUN 23 mg/dL (7-18) H 04/21/25 06:16 Creatinine 0.76 mg/dL (0.70-1.30) 04/21/25 06:16 Glucose 130 mg/dL (74-106) H 04/21/25 06:16 Phosphorus 4.0 mg/dL (2.5-4.9) 04/21/25 06:16 Magnesium 2.2 mg/dL (1.6-2.4) 04/21/25 06:16 Total Bilirubin 0.7 mg/dL (0.2-1.0) 04/20/25 10:25 AST 13 U/L (15-37) L 04/20/25 10:25 ALT 30 U/L (16-61) 04/20/25 10:25 Alkaline Phosphatase 136 U/L (45-117) H 04/20/25 10:25 Triglycerides 105 mg/dL (<150) 04/21/25 06:16 Cholesterol 89 mg/dL (<200) 04/21/25 06:16 HDL Cholesterol 44 mg/dL (40-60) 04/21/25 06:16 Cholesterol/HDL Ratio 2.02 04/21/25 06:16 Home Medications: Aspirin 81 mg PO DAILY 04/20/25 Atorvastatin Calcium [Lipitor] 80 mg PO DAILY 04/20/25 Empagliflozin [Jardiance] 25 mg PO DAILY 04/20/25 Ezetimibe [Zetia*] 10 mg PO DAILY 04/20/25 Furosemide [Lasix] 40 mg PO DAILY #30 tab 04/21/25 New Medications: Furosemide [Lasix] 40 mg PO DAILY #30 tab Diet: AHA Activity: Ad jas Followup: Laci Nicole MD [ACTIVE - CAN ADMIT] - 1 Week JOSE LEAL [Primary Care Provider] - 1 Week (f/u with PCP in 5-7 days with CBC and CMP)
--- NOTE | 2025-04-22 06:48 | ECHO ---
HEIGHT: 5 ft 5 in WEIGHT: 264 lb 2 oz DATE OF STUDY: 04/21/[address]: Estephania Alvarez NP 2-DIMENSIONAL: YES M.MODE: YES DOPPLER: YES COLOR FLOW: YES TDS: YES PORTABLE: YES DEFINITY: BUBBLE STUDY: DIAGNOSIS: CHEST PRESSURE CARDIAC HISTORY: CATHERIZATION: NO SURGERY: NO PROSTHETIC VALVE: NO PACEMAKER: NO MEASUREMENTS (cm) DIASTOLIC (NORMALS) SYSTOLIC (NORMALS) IVSd 1.1 (0.6-1.2) LA Diam 2.7 (1.9-4.0) LVEF 60-65% LVIDd 4.1 (3.5-5.7) LVIDs 2.6 (2.0-3.5) %FS 38% LVPWd 1.1 (0.6-1.2) Ao Diam 2.9 (2.0-3.7) 2 DIMENSIONAL ASSESSMENT: RIGHT ATRIUM: NORMAL LEFT ATRIUM: NORMAL RIGHT VENTRICLE: NORMAL LEFT VENTRICLE: NORMAL TRICUSPID VALVE: TRACE TRICUSPID REGURGITATION MITRAL VALVE: NORMAL PULMONIC VALVE: NORMAL AORTIC VALVE: NORMAL PERICARDIAL EFFUSION: NONE AORTIC ROOT: NORMAL LEFT VENTRICULAR WALL MOTION: NORMAL DOPPLER/COLOR FLOW: GRADE I DIASTOLIC DYSFUNCTION COMMENTS: 1. NORMAL LEFT VENTRICULAR SYSTOLIC FUNCTION, EJECTION FRACTION 60-65%, NORMAL WALL MOTION 2. GRADE I DIASTOLIC DYSFUNCTION TECHNOLOGIST: YULISA BUCIO
--- NOTE | 2025-04-26 12:43 | EKG ---
Test Date: 2025-04-20 Test Time: 10:15:16 Choker Hooker: LORAINEW MEASUREMENT RESULTS: Intervals: Rate: 95 OR: 146 QRSD: 80 QT: 346 QTc: 434 [place]: P: 55 OR: 146 QRS: 42 T: 27 INTERPRETIVE STATEMENTS: Normal sinus rhythm Normal ECG Compared to ECG 08/29/2024 13:40:27 No significant changes Electronically Signed On 04-26-25 12:30:35 CDT by Laci Nicole
== END 2025-04-21 15:43 | disposition home or self-care (01) ==
LOC: ER 10:01 → ERHOLD 13:53 → 2ND 16:15
PROVIDERS: ADMIT Family Medicine; ATTEND Hospitalist
DX: R07.9 Chest pain, unspecified (principal); E11.9 Type 2 diabetes mellitus without complications; E78.5 Hyperlipidemia, unspecified; I10 Essential (primary) hypertension; Z86.73 Personal history of transient ischemic attack (TIA), and cerebral infarction without residual deficits
CPT/HCPCS: 93005; 93306; 85025 ×2; 80048 ×3; 36415; 83735 ×3; 84100; 85610; 80061; 82947 ×4; 80076; 84443; 83036; 84484 ×3; 84439; 83880; 71045; 99285; J1650 ×3; J1938 ×2; G0378